=== PATIENT | female | born 1940 | race African-American/Black ===

== ENCOUNTER 2016-09-13 14:15 | Observation (INO) | payer MEDICARE, OTHER ==
[2016-09-13 15:05] LABS: Hematocrit 26 % (35-47); Hemoglobin 7.6 g/dl (12.0-16.0); Mean Corpuscular HGB Conc 30 g/dl (31-36); Mean Corpuscular Hemoglobin 23 pg (27-31); Mean Corpuscular Volume 77 fL (80-97); Mean Platelet Volume 11 um3 (7.4-10.4); Red Blood Count 3.31 10^6/ul (4.0-5.4); Red Cell Distribution Width 17 % (10.5-15); White Blood Count 6.6 10^3/ul (3.5-10.8)
[2016-09-13 15:08] LABS: Albumin 3.3 g/dL (3.2-5.2); Calcium 8.6 mg/dL (8.6-10.3); EGFR African American 78.7 (>60); EGFR Non-African American 61.2 (>60); Globulin 3.9 g/dL (2-4); Total Bilirubin 0.4 mg/dL (0.2-1.0); Total Protein 7.2 g/dL (6.4-8.9)
[2016-09-13 15:09] LABS: Troponin I 0.01 ng/mL (<0.04)
[2016-09-13] MEDS ORDERED: Albuterol/Ipratropium NEB.SOL* Albuterol 2.5 MG/Ipratropium 0.5 MG 3 ML INH ONE (15:10)
[2016-09-13 15:11] LABS: Add Diff/Slide Review? Manual Diff Added; Comments Flag Yes
--- NOTE | 2016-09-13 15:31 | RAD ---
INDICATION: Shortness of breath. COMPARISON: Most recent comparison chest x-ray is dated November 12, 2014 TECHNIQUE: PA and lateral views of the chest were obtained. FINDINGS: There is mild cardiomegaly. The heart and mediastinum are otherwise normal in contour. The lungs are grossly clear. There is no evidence of large pleural effusion. Degenerative changes of the thoracic spine include loss of intervertebral disc height and mild anterior marginal osteophyte formation. There is no radiographic evidence of free air beneath the diaphragm IMPRESSION: MILD CARDIOMEGALY COULD BE SEEN IN THE SETTING OF CONGESTIVE HEART FAILURE.
[2016-09-13 15:34] LABS: Eosinophils % 4 % (0-6); Neutrophil % 75 % (38-83)
[2016-09-13 15:35] LABS: Hypochromasia 2+; Macrocytosis 1+; Polychromasia 1+
[2016-09-13] MEDS ORDERED: NS 0.9% 1000 ML* 250 ML IV ONE (17:39)
[2016-09-13] MEDS ORDERED: Iodixanol* (CONTRAST) 320 MG/ML 100 ML SDV IV ONE (17:43)
--- NOTE | 2016-09-13 18:01 | ED ---
Jeannine Benitez Alok, scribed for Leona Trevizo MD on 09/13/16 at 1506 . Shortness of Breath - HPI Summary HPI Summary: 75 y/o female presents to the ED for SOB that started today at 0600. PMHx includes COPD and hx of CHF. Pt is a former tobacco smoker and quit in 2001. - History of Current Complaint Chief Complaint: EDShortnessOfBreath Time Seen by Provider: 09/13/16 14:19 Hx Obtained From: Patient Onset/Duration: Gradual Onset, Lasting Hours, Still Present Timing: Constant Current Severity: Moderate Aggrevating Factors: Nothing Alleviating Factors: Nothing - Allergy/Home Medications Allergies/Adverse Reactions: Allergies Allergy/AdvReac Type Severity Reaction Status Date / Time Captopril Allergy Severe Hives Verified 05/10/16 15:15 PMH/Surg Hx/FS Hx/Imm Hx Endocrine/Hematology History: Reports: Hx Diabetes, Hx Anemia Cardiovascular History: Reports: Hx Congestive Heart Failure - DX IN 2009, Hx Hypertension, Other Cardiovascular Problems/Disorders - DM II, ON NEW MED TO REGULATE WATER, JUST INCREASED (DOUBLED) DOSAGE Respiratory History: Reports: Hx Chronic Obstructive Pulmonary Disease (COPD), Hx Sleep Apnea GI History: Reports: Hx Gastrointestinal Bleed, Hx Hiatal Hernia, Other GI Disorders - HELICOBACTER INFECTION History: Denies: Hx Renal Disease Musculoskeletal History: Reports: Hx Arthritis, Hx Back Problems, Other Musculoskeletal History - spinal stenosis Sensory History: Reports: Hx Cataracts - surgery with implants bilat eyes 96, Hx Contacts or Glasses Opthamlomology History: Reports: Hx Cataracts - surgery with implants bilat eyes 96, Hx Contacts or Glasses Neurological History: Reports: Other Neuro Impairments/Disorders - vertigo Psychiatric History: Reports: Other Psychiatric Issues/Disorders - PT REPORTS "STRESS" AND SAYS HER MD GAVE HER A MED FOR IT, UNSURE WHAT - Surgical History Surgery Procedure, Year, and Place: partial hysterectomy-. naval hernia-72. boil like substance removed from both armpits, mid 70's. carpal tunnel both hands- 1 1/2 - 2yrs apart mid to late 80's. rotator cuff, bone spur removed- september. left foot surgery- screw placed, may. catarac surgery with implants to both eyes- Infectious Disease History: No Infectious Disease History: Denies: Traveled Outside the [place] in Last 30 Days - Family History Known Family History: Positive: Other - Yes - CHF (Mother) - Social History Alcohol Use: None Substance Use Type: Reports: None Hx Tobacco Use: Yes Smoking Status (MU): Former Smoker Have You Smoked in the Last Year: No Review of Systems Negative: Fever Positive: Shortness Of Breath All Other Systems Reviewed And Are Negative: Yes Physical Exam Triage Information Reviewed: Yes Vital Signs On Initial Exam: Initial Vitals Temp Pulse Resp BP Pulse Ox 99.2 F 65 20 148/66 100 09/13/16 14:25 09/13/16 14:25 09/13/16 14:25 09/13/16 14:25 09/13/16 14:25 Vital Signs Reviewed: Yes Appearance: Positive: Well-Appearing, No Pain Distress Skin: Positive: Warm, Skin Color Reflects Adequate Perfusion, Dry Eyes: Positive: EOMI, GENNY ENT: Positive: Pharynx normal, TMs normal Neck: Positive: Supple, Nontender Respiratory/Lung Sounds: Positive: Clear to Auscultation, Breath Sounds Present. Negative: Rales, Rhonchi, Wheezes Cardiovascular: Positive: RRR. Negative: Murmur, Rub, Other - Gallops Abdomen Description: Positive: Nontender, Soft Bowel Sounds: Positive: Present Musculoskeletal: Positive: Strength/ROM Intact. Negative: Edema Left, Edema Right Neurological: Positive: Sensory/Motor Intact, Alert, Oriented to Person Place, Time, CN Intact II-III Psychiatric: Positive: Affect/Mood Appropriate - [place] Coma Scale Coma Scale Total: 15 Diagnostics - Vital Signs Vital Signs Temp Pulse Resp BP Pulse Ox 09/13/16 14:36 98.7 F 64 15 138/60 100 09/13/16 14:31 99.2 F 64 19 138/64 99 09/13/16 14:29 99.2 F 68 21 148/66 99 09/13/16 14:26 66 18 100 09/13/16 14:25 99.2 F 65 20 148/66 100 - Laboratory Lab Results: Lab Results 09/13/16 09/13/16 09/13/16 Range/Units 14:45 14:45 14:45 WBC 6.6 (3.5-10.8) 10^3/ul RBC 3.31 L (4.0-5.4) 10^6/ul Hgb 7.6 L (12.0-16.0) g/dl Hct 26 L (35-47) % MCV 77 L (80-97) fL MCH 23 L (27-31) pg MCHC 30 L (31-36) g/dl RDW 17 H (10.5-15) % Plt Count 158 (150-450) 10^3/ul MPV 11 H (7.4-10.4) um3 Absolute Neuts (auto) 5.0 (1.5-7.7) 10^3/ul Absolute Lymphs (auto) 0.9 L (1.0-4.8) 10^3/ul Absolute Monos (auto) 0.4 (0-0.8) 10^3/ul Absolute Eos (auto) 0.3 (0-0.6) 10^3/ul Absolute Basos (auto) 0 (0-0.2) 10^3/ul Absolute Nucleated RBC 0.04 10^3/ul Neutrophils % 75 (38-83) % Lymphocytes % 14 L (25-47) % Monocytes % 7 (0-13) % Eosinophils % 4 (0-6) % Normal RBC Morphology Not Reportable Polychromasia 1+ Hypochromasia 2+ Macrocytosis 1+ INR (Anticoag Therapy) 1.06 (0.89-1.11) D-Dimer, Quantitative 595 H (Less Than 230) ng/mL Sodium 140 (133-145) mmol/L Potassium 4.0 (3.5-5.0) mmol/L Chloride 107 (101-111) mmol/L Carbon Dioxide 28 (22-32) mmol/L Anion Gap 5 (2-11) mmol/L BUN 9 (6-24) mg/dL Creatinine 0.90 (0.51-0.95) mg/dL Est GFR ( Amer) 78.7 (>60) Est GFR (Non-Af Amer) 61.2 (>60) BUN/Creatinine Ratio 10.0 (8-20) Glucose 145 H (70-100) mg/dL Lactic Acid (0.5-2.0) mmol/L Calcium 8.6 (8.6-10.3) mg/dL Total Bilirubin 0.40 (0.2-1.0) mg/dL AST 28 (13-39) U/L ALT 25 (7-52) U/L Alkaline Phosphatase 112 H (34-104) U/L Troponin I 0.01 (<0.04) ng/mL B-Natriuretic Peptide ( - 100) pg/mL Total Protein 7.2 (6.4-8.9) g/dL Albumin 3.3 (3.2-5.2) g/dL Globulin 3.9 (2-4) g/dL Albumin/Globulin Ratio 0.8 L (1-3) 09/13/16 09/13/16 09/13/16 Range/Units 14:45 14:45 16:45 WBC (3.5-10.8) 10^3/ul RBC (4.0-5.4) 10^6/ul Hgb (12.0-16.0) g/dl Hct (35-47) % MCV (80-97) fL MCH (27-31) pg MCHC (31-36) g/dl RDW (10.5-15) % Plt Count (150-450) 10^3/ul MPV (7.4-10.4) um3 Absolute Neuts (auto) (1.5-7.7) 10^3/ul Absolute Lymphs (auto) (1.0-4.8) 10^3/ul Absolute Monos (auto) (0-0.8) 10^3/ul Absolute Eos (auto) (0-0.6) 10^3/ul Absolute Basos (auto) (0-0.2) 10^3/ul Absolute Nucleated RBC 10^3/ul Neutrophils % (38-83) % Lymphocytes % (25-47) % Monocytes % (0-13) % Eosinophils % (0-6) % Normal RBC Morphology Polychromasia Hypochromasia Macrocytosis INR (Anticoag Therapy) (0.89-1.11) D-Dimer, Quantitative (Less Than 230) ng/mL Sodium (133-145) mmol/L Potassium (3.5-5.0) mmol/L Chloride (101-111) mmol/L Carbon Dioxide (22-32) mmol/L Anion Gap (2-11) mmol/L BUN (6-24) mg/dL Creatinine (0.51-0.95) mg/dL Est GFR ( Amer) (>60) Est GFR (Non-Af Amer) (>60) BUN/Creatinine Ratio (8-20) Glucose (70-100) mg/dL Lactic Acid 1.8 (0.5-2.0) mmol/L Calcium (8.6-10.3) mg/dL Total Bilirubin (0.2-1.0) mg/dL AST (13-39) U/L ALT (7-52) U/L Alkaline Phosphatase (34-104) U/L Troponin I 0.01 (<0.04) ng/mL B-Natriuretic Peptide 212 H ( - 100) pg/mL Total Protein (6.4-8.9) g/dL Albumin (3.2-5.2) g/dL Globulin (2-4) g/dL Albumin/Globulin Ratio (1-3) Result Diagrams: 09/13/16 14:45 09/13/16 14:45 Lab Statement: Any lab studies that have been ordered have been reviewed, and results considered in the medical decision making process. - Radiology CXR Xray Interpretation: Positive (See Comments) Radiology Interpretation Completed By: Radiologist - EKG 1443 Cardiac Rate: NL EKG Rhythm: Sinus Rhythm - 66 bpm Course/Dx - Course Course Of Treatment: 75 yo female with anemia at baseline here with episode of sob early this am at rest. ekg and two trops neg talked with cecil who suggested doing a ddimer which is positive and now pt has new cp. cta chest pending repeat ekg being done and pt to be admitted to medicine. Dr. Carty aware - Diagnoses Provider Diagnoses: Dyspnea - Physician Notifications Discussed Care of Patient With: Dr Carty (Hospitalist) - Will admit pt Discharge - Discharge Plan Condition: Stable Disposition: ADMITTED TO [facility] Referrals: Danny Pena MD [Primary Care Provider] - The documentation as recorded by the Jeannine puri Alok accurately reflects the service I personally performed and the decisions made by me, Leona Trevizo MD.
--- NOTE | 2016-09-13 19:23 | RAD ---
Indication: Shortness of breath. Contrast: Administered 91.0 ml of VISAPAQUE 320 mgi/ml CTA of the chest was performed after IV contrast administration. Coronal and sagittal reconstructed images were obtained. The pulmonary arterial tree is well opacified. There are no filling defects present to suggest pulmonary embolus. Inferior thyroid lobes are unremarkable. No mediastinal or hilar adenopathy is noted. Cardiomegaly without evidence of pericardial effusion is noted. The trachea and major bronchi appear patent. No alveolar consolidation is noted of the deep tendon changes which may represent atelectasis is noted in the lung bases. Lobulated liver consistent with cirrhosis is noted. Calcified granuloma is noted in the spleen. IMPRESSION: NO EVIDENCE OF PULMONARY EMBOLUS IS NOTED. BIBASILAR ATELECTASIS IS NOTED.
[2016-09-13] MEDS ORDERED: Dextrose 50% Syringe 50 ML* 25 GM/50 ML SYRINGE IV PUSH PRN (19:52)
[2016-09-13] MEDS ORDERED: Metolazone TAB* 5 MG PO SCH (20:00)
[2016-09-13] MEDS ORDERED: Albuterol/Ipratropium NEB.SOL* Albuterol 2.5 MG/Ipratropium 0.5 MG 3 ML INH PRN (20:01)
[2016-09-13] MEDS ORDERED: Ferrous Gluconate TAB* 324 MG TAB PO SCH (21:00)
[2016-09-13] MEDS ORDERED: Terazosin CAP* 5 MG PO SCH (21:00)
[2016-09-13] MEDS ORDERED: Ferrous Sulfate TAB* 325 MG PO SCH (21:59)
[2016-09-13] MEDS: Bumetanide TAB* 2 MG PO SCH (22:24)
[2016-09-13] MEDS: Losartan TAB* 25 MG PO SCH (22:25)
[2016-09-13] MEDS: Potassium Chlor TAB* 20 MEQ TAB.ER PO SCH (22:25)
[2016-09-13] MEDS: Heparin VIAL(*) 5000 UNITS/ML VIAL (FIVE THOUSAND) SUBCUT SCH (22:25)
[2016-09-13] MEDS: Carvedilol TAB* 25 MG PO SCH (22:25)
[2016-09-13] MEDS: Ferrous Sulfate TAB* 325 MG PO SCH (22:37)
--- NOTE | 2016-09-14 01:52 | HP ---
HOSPITAL MEDICINE HISTORY AND PHYSICAL: DATE OF ADMISSION: 09/13/16 PRIMARY CARE PHYSICIAN: Danny Pena MD ATTENDING PHYSICIAN: Jennifer Carty DO *(dictation provided by Sharmin Cornell NP) . CHIEF COMPLAINT: Shortness of breath with chest pain. HISTORY OF PRESENT ILLNESS: Ms. Hansen is a 75-year-old female with a past medical history of insulin-dependent diabetes, hypertension and CHF, who presents today to the hospital with concern for shortness of breath and chest pain. Ms. Hansen states that she was feeling fine until this morning. She was doing small activities around the house, cleaning, straightening up the bed and walking in the home when she developed shortness of breath. She states she has felt much more dyspneic with activity than usual, but she also states that she was short of breath at rest. She also had some chest discomfort along the left side of her chest. There is no nausea, sweating, radiation of the pain. It abated on its own. She states that she has had this pain intermittently for some time. She denies any recent illnesses. No fevers, chills, cough, nausea, or abdominal pain. She states she has been eating and drinking normally. In the emergency room, Ms. Hansen had a normal troponin and a normal EKG, but she did have an elevation in her D-dimer to 595. She went on for a CTA of the chest which showed no evidence of pulmonary embolism, but based on the concern for shortness of breath and chest pain, Hospital Medicine was called regarding admission. PAST MEDICAL HISTORY: 1. Chronic kidney disease, stage 3. 2. Chronic iron deficiency anemia. 3. Type 2 diabetes, insulin dependent. 4. Combined systolic and diastolic heart failure. 5. Obstructive sleep apnea, noncompliant with CPAP. 6. COPD. 7. Spinal stenosis. 8. History of umbilical hernia repair. 9. Hysterectomy. 10. Left foot ORIF. 11. Bilateral carpal tunnel release. 12. Right rotator cuff repair. 13. Cataract surgery bilaterally. 14. Axillary cyst excision bilaterally. MEDICATIONS: 1. Cyanocobalamin 500 mcg sublingually b.i.d. 2. Multivitamin 1 chewable p.o. daily. 3. Detrol LA 4 mg p.o. daily. 4. Glyburide 10 mg p.o. b.i.d. 5. Metformin 1000 mg in the a.m. and 1500 mg in the p.m. 6. Aspirin 81 mg p.o. daily. 7. Bumetanide 2 mg p.o. b.i.d. 8. Carvedilol 25 mg p.o. b.i.d. 9. Duloxetine 20 mg p.o. daily. 10. Ferrous gluconate 325 mg p.o. b.i.d. 11. Lantus insulin 60 units at p.m. and 80 units in the a.m. 12. Levothyroxine 25 mcg p.o. daily. 13. Losartan 50 mg p.o. b.i.d. 14. Metolazone 2.5 mg p.o. twice a week. 15. Potassium chloride 20 mEq p.o. b.i.d. 16. Simvastatin 20 mg p.o. daily. 17. Spironolactone 25 mg p.o. daily. 18. Terazosin 10 mg p.o. at bedtime. ALLERGIES: CAPTOPRIL. FAMILY HISTORY: The patient states that her mother, father, sister and brother all have diabetes. SOCIAL HISTORY: The patient is a former smoker, but she quit many years ago. No report of alcohol or drug use. She lives with her who is her healthcare proxy. REVIEW OF SYSTEMS: A 14-point review of systems was completed on Ms. Hansen and all those not mentioned above were negative. PHYSICAL EXAMINATION GENERAL: Ms. Hansen is lying in the bed. She is in no acute distress. She is calm and cooperative with my examination. VITAL SIGNS: Temperature 98, pulse rate 74, respiratory rate 20, O2 saturation 100% on room air, blood pressure 162/64. LUNGS: Clear to auscultation bilaterally with no accessory muscle use and good aeration. HEART: S1 and S2. No murmur, rub, or gallop and regular. ABDOMEN: Soft, nontender. Bowel sounds are present x4. EXTREMITIES: No cyanosis or edema. SKIN: Intact. NEUROLOGIC: She is alert and oriented x3. She moves all extremities equally. There is no facial asymmetry or focal weakness. Extraocular movements are intact. LABORATORY DATA/DIAGNOSTIC STUDIES: WBC 6.6, hemoglobin 7.6 which is consistent with baseline, though a little lower than usual for her, hematocrit is 26, platelet count 158, INR 1.06, d-dimer 595. Sodium 140, potassium 4.0, chloride 107, serum bicarbonate 28, BUN 9, creatinine 0.9, serial glucose 145, lactic acid 1.8. Troponin 0.01, BNP 212. Chest x-ray is read as follows: Mild cardiomegaly could be seen in the setting of congestive heart failure. Chest and thorax CTA: No evidence of pulmonary embolism is noted. Bibasilar atelectasis noted. EKG shows sinus rhythm and no evidence of ischemia with heart rate of about 60. ASSESSMENT: Ms. Hansen is a 75-year-old female with past medical history of chronic kidney disease, stage 3, insulin-dependent diabetes, and combined diastolic and systolic heart failure as well as chronic obstructive pulmonary disease and obstructive sleep apnea who presents today to the hospital with concern for shortness of breath and chest discomfort. Our plans are for observation in the hospital for the followin. Shortness of breath and chest discomfort: No evidence of pneumonia or infection. No evidence of fluid overload or congestive heart failure exacerbation. The patient also has no pulmonary embolism noted on CTA of chest. I am not exactly sure what drove her short-lived period of shortness of breath and chest pain, but I feel it is prudent to rule her out for acute coronary artery syndrome with multiple troponins and observation overnight. First troponin is negative. 2. Type 2 diabetes. Continue home Lantus with Lispro sliding scale with meals. 3. Hypothyroidism. Continue levothyroxine. 4. Anemia. The patient is near her baseline, though low. I see no evidence of bleeding. She does not have any dark-tarry stools. 5. Congestive heart failure. Continue home medications of spironolactone, metolazone and bumetanide. 6. Hypertension. Continue losartan and her diuretics. 7. DVT prophylaxis: Heparin subcu. 8. Code status is full code. DISPOSITION: To telemetry floor. TIME SPENT: Approximately 60 minutes was spent on the admission of this patient , more than half of the time was spent with the patient at the bedside, reviewing the events leading up this hospitalization, performing the physical examination and reviewing the plan of care. SHARMIN CORNELL NP CC: Danny Pena MD* [id number]/[facility] #: [id number] WENDY
[2016-09-14] MEDS ORDERED: Levothyroxine TAB* 25 MCG TAB PO SCH (06:00)
[2016-09-14] MEDS: Heparin VIAL(*) 5000 UNITS/ML VIAL (FIVE THOUSAND) SUBCUT SCH (06:23)
[2016-09-14] MEDS: Insulin LISPRO* 1 UNITS UNIT SUBCUT SCH ×2 (07:32→11:56)
[2016-09-14] MEDS: Potassium Chlor TAB* 20 MEQ TAB.ER PO SCH (08:06)
[2016-09-14] MEDS: Carvedilol TAB* 25 MG PO SCH (08:06)
[2016-09-14] MEDS: Losartan TAB* 25 MG PO SCH (08:06)
[2016-09-14] MEDS: Ferrous Sulfate TAB* 325 MG PO SCH (08:07)
[2016-09-14] MEDS: Bumetanide TAB* 2 MG PO SCH (08:07)
[2016-09-14] MEDS ORDERED: DULoxetine DR CAP* 20 MG CAP.DR PO SCH (09:00)
[2016-09-14] MEDS ORDERED: Atorvastatin* 10 MG TAB PO SCH (09:00)
[2016-09-14] MEDS ORDERED: Aspirin EC Low Dose* 81 MG TAB.EC PO SCH (09:00)
[2016-09-14] MEDS ORDERED: Insulin GLARGINE(*) 1 UNITS UNIT SUBCUT SCH ×2 (09:00→18:00)
[2016-09-14] MEDS ORDERED: Spironolactone TAB* 25 MG PO SCH (09:00)
--- NOTE | 2016-09-14 10:16 | PN ---
Subjective Date of Service: 09/14/16 Interval History: Patient seen and examined at bedside. She reports feeling at her baseline, denying fever/chills, palpitations, chest pain, increased SOB, abd pain, n/v. She states she normally has dyspnea at baseline, but the incident yesterday was worse in severity. She reports a history of cardiomyopathy and CHF and states she is compliant with diet and medications. She does not weigh herself regularly but denies abdominal fullness, LE edema or worsening dyspnea. She wonders if the incident yesterday may have been secondary to indigestion, though she states that she usually stays sitting up after eating. Blood work and EKGs reviewed with patient, and she is requesting to go home and will pursue further outpatient workup with PCP as warranted. Telemetry: SR in the 70s Family History: Unchanged from Admission Social History: Unchanged from Admission Past Medical History: Unchanged from Admission Objective Active Medications: Albuterol/Ipratropium (Duoneb (Albuterol 2.5 Mg/Ipratropium 0.5 Mg)) 1 neb INH Q4H PRN PRN Reason: SOB/WHEEZING Aspirin (Aspirin Ec Low Dose*) 81 mg PO DAILY [facility] Last Admin: 09/14/16 08:07 Dose: 81 mg Atorvastatin Calcium (Lipitor*) 10 mg PO DAILY [facility] Last Admin: 09/14/16 08:07 Dose: 10 mg Bumetanide (Bumex Tab*) 2 mg PO BID [facility] Last Admin: 09/14/16 08:07 Dose: 2 mg Carvedilol (Coreg Tab*) 25 mg PO BID WITH MEALS [facility] Last Admin: 09/14/16 08:06 Dose: 25 mg Dextrose (D50w Syringe 50 Ml*) 12.5 gm IV PUSH .FOR FS < 60 - SS PRN PRN Reason: FS < 60 Duloxetine HCl (Cymbalta Cap*) 20 mg PO DAILY [facility] Last Admin: 09/14/16 08:07 Dose: 20 mg Ferrous Sulfate (Ferrous Sulfate Tab*) 325 mg PO Q12HR [facility] Last Admin: 09/14/16 08:07 Dose: 325 mg Heparin Sodium (Porcine) (Heparin Vial(*)) 5,000 units SUBCUT Q8HR [facility] Last Admin: 09/14/16 06:23 Dose: 5,000 units Insulin Glargine (Lantus(*)) 80 units SUBCUT QAM [facility] Last Admin: 09/14/16 08:04 Dose: 80 units Insulin Glargine (Lantus(*)) 60 units SUBCUT QPM [facility] Insulin Human Lispro (Humalog*) 0 units SUBCUT AC [facility] PRN Reason: Protocol Last Admin: 09/14/16 07:32 Dose: Not Given Levothyroxine Sodium (Synthroid Tab*) 25 mcg PO DAILY@0600 [facility] Last Admin: 09/14/16 06:24 Dose: 25 mcg Losartan Potassium (Cozaar Tab*) 50 mg PO BID [facility] Last Admin: 09/14/16 08:06 Dose: 50 mg Metolazone (Zaroxolyn Tab*) 2.5 mg PO .TWICE A WEEK [facility] Potassium Chloride (Klor Con Er Tab*) 20 meq PO BID WITH MEALS [facility] Last Admin: 09/14/16 08:06 Dose: 20 meq Spironolactone (Aldactone Tab*) 25 mg PO DAILY [facility] Last Admin: 09/14/16 08:07 Dose: 25 mg Terazosin HCl (Hytrin Cap*) 10 mg PO BEDTIME [facility] Last Admin: 09/13/16 22:25 Dose: 10 mg Vital Signs 09/13/16 09/13/16 09/13/16 18:00 18:24 18:45 Temperature 98.2 F Pulse Rate 68 68 69 Respiratory 16 18 21 Rate Blood Pressure 130/41 130/41 (mmHg) O2 Sat by Pulse 97 96 Oximetry 09/13/16 09/13/16 09/13/16 19:00 19:43 20:02 Temperature 98 F Pulse Rate 72 74 74 Respiratory 19 20 19 Rate Blood Pressure 162/64 (mmHg) O2 Sat by Pulse 98 100 97 Oximetry 09/14/16 09/14/16 09/14/16 00:00 00:17 04:29 Temperature 98.2 F 97.9 F Pulse Rate 68 67 Respiratory 16 16 Rate Blood Pressure 128/54 122/49 (mmHg) O2 Sat by Pulse 99 99 99 Oximetry 09/14/16 07:37 Temperature 97.6 F Pulse Rate 65 Respiratory 20 Rate Blood Pressure 118/50 (mmHg) O2 Sat by Pulse 99 Oximetry Oxygen Devices in Use Now: None Appearance: Female patient, lying in bed, in NAD Eyes: PERRLA Ears/Nose/Mouth/Throat: Clear Oropharnyx, Mucous Membranes Moist Neck: NL Appearance and Movements; NL JVP Respiratory: Symmetrical Chest Expansion and Respiratory Effort, Clear to Auscultation Cardiovascular: NL Sounds; No Murmurs; No JVD, RRR Abdominal: NL Sounds; No Tenderness; No Distention Extremities: No Edema Skin: No Rash or Ulcers Neurological: Alert and Oriented x 3 Lines/Tubes/Other Access: Clean, Dry and Intact Peripheral IV Nutrition: Taking PO's Result Diagrams: 09/13/16 14:45 09/13/16 14:45 Additional Lab and Data: Lab Results 09/13/16 09/13/16 09/13/16 Range/Units 14:45 14:45 14:45 WBC 6.6 (3.5-10.8) 10^3/ul RBC 3.31 L (4.0-5.4) 10^6/ul Hgb 7.6 L (12.0-16.0) g/dl Hct 26 L (35-47) % MCV 77 L (80-97) fL MCH 23 L (27-31) pg MCHC 30 L (31-36) g/dl RDW 17 H (10.5-15) % Plt Count 158 (150-450) 10^3/ul MPV 11 H (7.4-10.4) um3 Absolute Neuts (auto) 5.0 (1.5-7.7) 10^3/ul Absolute Lymphs (auto) 0.9 L (1.0-4.8) 10^3/ul Absolute Monos (auto) 0.4 (0-0.8) 10^3/ul Absolute Eos (auto) 0.3 (0-0.6) 10^3/ul Absolute Basos (auto) 0 (0-0.2) 10^3/ul Absolute Nucleated RBC 0.04 10^3/ul Neutrophils % 75 (38-83) % Lymphocytes % 14 L (25-47) % Monocytes % 7 (0-13) % Eosinophils % 4 (0-6) % Normal RBC Morphology Not Reportable Polychromasia 1+ Hypochromasia 2+ Macrocytosis 1+ INR (Anticoag Therapy) 1.06 (0.89-1.11) D-Dimer, Quantitative 595 H (Less Than 230) ng/mL Sodium 140 (133-145) mmol/L Potassium 4.0 (3.5-5.0) mmol/L Chloride 107 (101-111) mmol/L Carbon Dioxide 28 (22-32) mmol/L Anion Gap 5 (2-11) mmol/L BUN 9 (6-24) mg/dL Creatinine 0.90 (0.51-0.95) mg/dL Est GFR ( Amer) 78.7 (>60) Est GFR (Non-Af Amer) 61.2 (>60) BUN/Creatinine Ratio 10.0 (8-20) Glucose 145 H (70-100) mg/dL Lactic Acid (0.5-2.0) mmol/L Calcium 8.6 (8.6-10.3) mg/dL Total Bilirubin 0.40 (0.2-1.0) mg/dL AST 28 (13-39) U/L ALT 25 (7-52) U/L Alkaline Phosphatase 112 H (34-104) U/L Troponin I 0.01 (<0.04) ng/mL B-Natriuretic Peptide ( - 100) pg/mL Total Protein 7.2 (6.4-8.9) g/dL Albumin 3.3 (3.2-5.2) g/dL Globulin 3.9 (2-4) g/dL Albumin/Globulin Ratio 0.8 L (1-3) 09/13/16 09/13/16 09/13/16 Range/Units 14:45 14:45 16:45 WBC (3.5-10.8) 10^3/ul RBC (4.0-5.4) 10^6/ul Hgb (12.0-16.0) g/dl Hct (35-47) % MCV (80-97) fL MCH (27-31) pg MCHC (31-36) g/dl RDW (10.5-15) % Plt Count (150-450) 10^3/ul MPV (7.4-10.4) um3 Absolute Neuts (auto) (1.5-7.7) 10^3/ul Absolute Lymphs (auto) (1.0-4.8) 10^3/ul Absolute Monos (auto) (0-0.8) 10^3/ul Absolute Eos (auto) (0-0.6) 10^3/ul Absolute Basos (auto) (0-0.2) 10^3/ul Absolute Nucleated RBC 10^3/ul Neutrophils % (38-83) % Lymphocytes % (25-47) % Monocytes % (0-13) % Eosinophils % (0-6) % Normal RBC Morphology Polychromasia Hypochromasia Macrocytosis INR (Anticoag Therapy) (0.89-1.11) D-Dimer, Quantitative (Less Than 230) ng/mL Sodium (133-145) mmol/L Potassium (3.5-5.0) mmol/L Chloride (101-111) mmol/L Carbon Dioxide (22-32) mmol/L Anion Gap (2-11) mmol/L BUN (6-24) mg/dL Creatinine (0.51-0.95) mg/dL Est GFR ( Amer) (>60) Est GFR (Non-Af Amer) (>60) BUN/Creatinine Ratio (8-20) Glucose (70-100) mg/dL Lactic Acid 1.8 (0.5-2.0) mmol/L Calcium (8.6-10.3) mg/dL Total Bilirubin (0.2-1.0) mg/dL AST (13-39) U/L ALT (7-52) U/L Alkaline Phosphatase (34-104) U/L Troponin I 0.01 (<0.04) ng/mL B-Natriuretic Peptide 212 H ( - 100) pg/mL Total Protein (6.4-8.9) g/dL Albumin (3.2-5.2) g/dL Globulin (2-4) g/dL Albumin/Globulin Ratio (1-3) Assess/Plan/Problems-Billing Assessment: Ms. Hansen is a 75 yo female with a PMH of stage 3 CKD, TAHIR, IDDM, systolic and diastolic CHF, ONUR, COPD, and spinal stenosis who presented to the ED on with concern for chest pain and SOB. - Patient Problems (1) Chest pain Code(s): R07.9 - CHEST PAIN, UNSPECIFIED Comment: Unclear etiology, perhaps secondary to indigestion. No repeat episodes last evening, overnight, or this morning. Troponins negative and no significant ST-T changes noted on EKG. CTA negative for PE. No s/s fluid overload or CHF exacerbation. Recommend outpatient follow-up with PCP. (2) Type 2 diabetes mellitus Comment: BG 120s-140s. Continue outpatient metformin and Lantus. (3) Chronic combined systolic and diastolic CHF (congestive heart failure) Code(s): I50.42 - CHRONIC COMBINED SYSTOLIC AND DIASTOLIC HRT FAIL Comment: Continue home medications of bumetanide, metolazone, spironolactone. No evidence of acute exacerbation LVEF 40-45% on echo 10/2014 (4) COPD (chronic obstructive pulmonary disease) Code(s): J44.9 - CHRONIC OBSTRUCTIVE PULMONARY DISEASE, UNSPECIFIED Comment: No acute exacerbation, lungs clear. (5) Iron deficiency anemia due to chronic blood loss Code(s): D50.0 - IRON DEFICIENCY ANEMIA SECONDARY TO BLOOD LOSS (CHRONIC) Comment: Reported history of chronic GI bleed from small bowel. Followed closely by PCP. Due for endoscopy with Dr. Marcial next week. Requires regular iron infusions HH stable. Will have patient recheck CBC in 3 days, as it is slightly lower than baseline. Continue outpatient follow-up. (6) Stage III chronic kidney disease Code(s): N18.3 - CHRONIC KIDNEY DISEASE, STAGE 3 (MODERATE) Comment: GFR near baseline (7) DVT prophylaxis Code(s): [id number] - Comment: SCDs Status and Disposition: OBV admit. D/c to home.
[2016-09-14 11:23] VITALS: BP 150/51
--- NOTE | 2016-09-16 09:38 | DS ---
DISCHARGE SUMMARY: DATE OF ADMISSION: 09/13/16 DATE OF DISCHARGE: 09/14/16 PROVIDER: Minoo Garza NP ATTENDING PHYSICIAN: Dr. Camden Wynn *(as dictated by Minoo Garza NP) PRIMARY CARE PHYSICIAN: Dr. Danny Pena PRIMARY DISCHARGE DIAGNOSES: Chest pain and increased shortness of breath. SECONDARY DISCHARGE DIAGNOSES: 1. Stage III chronic kidney disease. 2. Chronic iron-deficiency anemia. 3. Type 2 diabetes, insulin dependent. 4. Combined systolic and diastolic heart failure. 5. Obstructive sleep apnea, noncompliant with CPAP. 6. Chronic obstructive pulmonary disease. 7. Spinal stenosis. 8. History of umbilical hernia repair. 9. Hysterectomy. 10. Left foot open reduction internal fixation. 11. Bilateral carpal tunnel release. 12. Right rotator cuff repair. 13. Cataract surgery bilaterally. 14. Axillary cyst excision bilaterally. MEDICATIONS AT DISCHARGE: 1. Lantus insulin 80 units subcu q.a.m., and 60 units subcu q.p.m. 2. Metformin 1000 mg q.a.m., and 1500 mg q.p.m. 3. Carvedilol 25 mg b.i.d. 4. Aspirin 81 mg daily. 5. Bumex 2 mg b.i.d. 6. Cymbalta 20 mg daily. 7. Vitamin B12 500 mcg b.i.d. 8. Glyburide 10 mg b.i.d. 9. Ferrous gluconate 325 mg b.i.d. 10. Synthroid 25 mcg daily. 11. Zaroxolyn 2.5 mg twice a week. 12. Losartan 50 mg b.i.d. 13. Multivitamin one tablet daily. 14. Simvastatin 20 mg daily. 15. Potassium chloride 20 mEq b.i.d. 16. Hytrin 10 mg at bedtime. 17. Spironolactone 25 mg daily. 18. Detrol 4 mg daily. HOSPITAL TESTING DURING THIS ADMISSION: 1. Chest x-ray from 09/13/16. Impression: Mild cardiomegaly could be seen in the setting of congestive heart failure. 2. CT of the chest and thorax from 09/13/16. Impression: No evidence of pulmonary embolus is noted. Bibasilar atelectasis noted. HOSPITAL COURSE OF STAY: For full details, please refer to the history and physical provided by Sharmin Cornell NP on 09/13/16. In summary, Ms. Hansen is a 75 - year-old female with a past medical history as previously stated who presented to the hospital concerned for shortness of breath and chest pain. She reports chest pain and shortness of breath with exertion at baseline, but was concerned because she felt more dyspneic with activity than usual and also experienced some chest discomfort along the left-side of her chest that she described as "burping." There was no nausea, sweating, or radiation of pain; it stopped on its own. She states that this pain has been occurring intermittently for some time. In the emergency room, the patient had a normal troponin, normal EKG, but her D - dimer was noted to 595. CTA of the chest showed no evidence of pulmonary embolism; however, with her history and , Hospital Medicine was consulted for admission. The patient was admitted under observation. Her troponins were trended and the EKG was repeated. Her troponins were negative at 0.01 x3 draws. The EKG showed no significant ST or T-wave changes. She required no additional supplemental O2 and was at her baseline oxygen requirements and was on room air. There were no signs or symptoms of fluid overload with CHF exacerbation. The patient does report that she takes her medications as prescribed, and she states that she is compliant with her diet. I could not elicit any reports of foods high in sodium or out of the ordinary that may have caused her symptoms. She denies weighing herself on a regular basis, but she denies any increasing abdominal fullness, lower extremity edema, or worsening dyspnea or orthopnea. She says that the incident prior to admission may have been secondary to indigestion, but she also reports that she tries to stay sitting up after eating. We discussed the options of staying and undergoing a stress test risks by our criteria of EKG and troponins is low. She states that she will follow up with her PCP and pursue further outpatient workup as needed. She also has followup with Dr. Horton later on this year. Of note, the patient does have a history of iron-deficiency anemia secondary to chronic blood loss. I do note that the patient's H and H is slightly lower than her baseline at 7.6 and 26; however, she is not tachycardic and her blood pressure is stable, and she has had no further complaints just being admitted. I did revisit the patient and advised her to have a followup CBC in two days with results sent to her PCP in order to make sure that this is not falling further as this may be contributing to her symptoms. She also states that she is due for endoscopy with Dr. Marcial within the week. She should continue her outpatient followup with Dr. Pena. Her kidney function is within baseline, and no other concerns were noted or expressed. CONCERNS AT DISCHARGE: Ms. Hansen will be discharged home on 09/14/16 with a plan to follow up with Dr. Pena in 4 to 7 days. Our load planner will help coordinate this appointment with the patient. DIET: Low-sodium, heart-healthy, and consistent-carbohydrate diet. ACTIVITY: As tolerated. CONDITION: Stable. DISPOSITION: To home. TIME SPENT: Time spent on this discharge was approximately 45 minutes. Again, this is only a brief summary of the patient's hospital course of stay. For full details, please refer to the full medical record. If you have any further questions or need further assistance, please feel free to contact me at [phone]. MINOO GARZA NP CC: Dr. Danny Pena* [id number]/[facility] #: [id number] MTDD
== END 2016-09-14 12:45 | disposition home or self-care (01) ==
LOC: ED 14:15 → MEDTELE 17:52
PROVIDERS: ADMIT Hospitalist; ATTEND Hospitalist
DX: R07.9 Chest pain, unspecified (principal); R06.02 Shortness of breath; I13.0 Hypertensive heart and chronic kidney disease with heart failure and stage 1 through stage 4 chronic kidney disease, or unspecified chronic kidney disease; N18.3 Chronic kidney disease, stage 3 (moderate); I50.40 Unspecified combined systolic (congestive) and diastolic (congestive) heart failure; E11.9 Type 2 diabetes mellitus without complications; D50.9 Iron deficiency anemia, unspecified; Z79.4 Long term (current) use of insulin; G47.33 Obstructive sleep apnea (adult) (pediatric); E03.9 Hypothyroidism, unspecified; Z79.82 Long term (current) use of aspirin; Z79.899 Other long term (current) drug therapy; Z88.8 Allergy status to other drugs, medicaments and biological substances; Z87.891 Personal history of nicotine dependence; R94.31 Abnormal electrocardiogram [ECG] [EKG]
CPT/HCPCS: 36415; 71020; 71275; 80053; 83605; 83880; 84484; 85025; 85379; 85610; 87040; 93005; 94760; 96360; 96361; 96372; 99284; A9270-GY; G0378; J1644; Q9967

== ENCOUNTER 2016-10-11 13:07 | Emergency (ER) | payer MEDICARE, OTHER ==
[2016-10-11] MEDS ORDERED: Acetaminophen TAB* 325 MG PO ONE (14:16)
[2016-10-11] MEDS ORDERED: Ibuprofen TAB* 600 MG PO ONE (14:16)
[2016-10-11] MEDS ORDERED: Methocarbamol TAB* 500 MG PO ONE (16:39)
--- NOTE | 2016-10-11 17:47 | ED ---
Devendra Benitez Erika, scribed for Ivanna Denton MD on 10/11/16 at 1510 . Back Pain - HPI Summary HPI Summary: Patient is a 75-year-old female presenting to the ED with a CC of lower back pain starting 10/09/2016. She denies trauma. Patient describes pain as a throbbing, and reports that pain radiates from the lower back to the left hip. Patient took 500 mg Tylenol yesterday, but did not today. Pain is improved while lying down. Patient reports she usually walks with a cane, and she has been able to walk with pain since pain began. She denies weakness in her legs, numbness, and urinary symptoms. Pt does state she has not had a BM since 10/08 as well. Pt reports a Hx spinal stenosis and arthritis in her back. She reports she is followed by her PCP Dr. Pena, and has had an MRI in the past. She reports she is followed by Dr. Marcial for GI, and recently found AVMs and benign polyps after upper and lower endoscopy. She reports she has had blood in her stool for years. Patient denies Hx kidney disease. She reports Hx cardiomyopathy, HTN, DM, vertigo, and COPD. Pt does not use home O2. She lives with her , and is a former smoker. - History of Current Complaint Chief Complaint: EDBackInjuryPain Stated Complaint: LT SIDE BACK/HIP PAIN Time Seen by Provider: 10/11/16 13:22 Hx Obtained From: Patient, Family/Die Finisher - Onset/Duration: Gradual Onset, Lasting Days, Still Present Onset/Duration: Atraumatic Timing: Constant Back Pain Location: Is Discrete @ - Lower back, L hip Severity Currently: Moderate Pain Intensity: 10 Pain Scale Used: 0-10 Numeric Character: Throbbing Aggravating Symptom(s): Movement Alleviating Symptom(s): Rest, Position - Lying down Associated Signs And Symptoms: Negative: Weakness, Numbness, Bladder Incontinence, Bowel Incontinence - Allergies/Home Medications Allergies/Adverse Reactions: Allergies Allergy/AdvReac Type Severity Reaction Status Date / Time Captopril Allergy Severe Hives Verified 05/10/16 15:15 Home Medications: Home Medications Insulin GLARGINE(*) [Lantus(*)] 60 units SUBCUT BID 10/11/16 [History Confirmed 10/11/16] Nystatin TOP POWDER* 1 applic TOPICAL BID 10/11/16 [History Confirmed 10/11/16] Triamcinolone 0.1% CREAM (NF) [Kenalog 0.1% Cream (NF)] 1 applic TOPICAL DAILY 10/11/16 [History Confirmed 10/11/16] PMH/Surg Hx/FS Hx/Imm Hx Endocrine/Hematology History: Reports: Hx Diabetes, Hx Anemia - chronic iron infusions Cardiovascular History: Reports: Hx Congestive Heart Failure - DX IN 2009, Hx Hypertension, Other Cardiovascular Problems/Disorders - cardiomyopathy Respiratory History: Reports: Hx Chronic Obstructive Pulmonary Disease (COPD), Hx Sleep Apnea GI History: Reports: Hx Gastrointestinal Bleed, Hx Hiatal Hernia - s/p repair, Other GI Disorders - HELICOBACTER INFECTION History: Denies: Hx Renal Disease Musculoskeletal History: Reports: Hx Arthritis, Hx Back Problems, Other Musculoskeletal History - spinal stenosis Sensory History: Reports: Hx Cataracts - surgery with implants bilat eyes 96, Hx Contacts or Glasses Opthamlomology History: Reports: Hx Cataracts - surgery with implants bilat eyes 96, Hx Contacts or Glasses Neurological History: Reports: Other Neuro Impairments/Disorders - vertigo Psychiatric History: Reports: Other Psychiatric Issues/Disorders - PT REPORTS "STRESS" AND SAYS HER MD GAVE HER A MED FOR IT, UNSURE WHAT - Surgical History Surgery Procedure, Year, and Place: partial hysterectomy-69. naval hernia-71. boil like substance removed from both armpits, mid 70's. carpal tunnel both hands- 1 1/2 - 2yrs apart mid to late 80's. R rotator cuff, bone spur removed- september. left foot surgery- screw placed, may. catarac surgery with implants to both eyes-96 - Immunization History Date of Tetanus Vaccine: >10 years ago Date of Influenza Vaccine: 02/2016 Infectious Disease History: No Infectious Disease History: Denies: Traveled Outside the [place] in Last 30 Days - Family History Known Family History: Positive: Other - Yes - CHF (Mother) - Social History Occupation: Retired Lives: With Family Alcohol Use: None Substance Use Type: Reports: None Hx Tobacco Use: Yes Smoking Status (MU): Former Smoker Have You Smoked in the Last Year: No Review of Systems Gastrointestinal: Other - constipated. blood in stool at baseline Negative: incontinence Musculoskeletal: Other - Back and L hip pain Negative: Weakness, Numbness All Other Systems Reviewed And Are Negative: Yes Physical Exam Triage Information Reviewed: Yes Vital Signs On Initial Exam: Initial Vitals Temp Pulse Resp Pulse Ox 97.3 F 71 20 100 10/11/16 13:09 10/11/16 13:09 10/11/16 13:09 10/11/16 13:09 Vital Signs Reviewed: Yes Appearance: Positive: Well-Appearing, No Pain Distress, Obese Skin: Positive: Warm, Skin Color Reflects Adequate Perfusion, Soft Head/Face: Positive: Normal Head/Face Inspection Eyes: Positive: EOMI, GENNY, Conjunctiva Clear ENT: Positive: Pharynx normal, TMs normal Neck: Positive: Supple, Nontender Respiratory/Lung Sounds: Positive: Clear to Auscultation, Breath Sounds Present Cardiovascular: Positive: RRR, Pulses are Symmetrical in both Upper and Lower Extremities. Negative: Murmur, Rub Abdomen Description: Positive: Nontender, No Organomegaly, Soft. Negative: Distended, Guarding, Peritoneal Signs Bowel Sounds: Positive: Present Musculoskeletal: Positive: Other - Tenderness left paraspinal around T12-L3. No deformity noted. Negative straight leg raise bilaterally Neurological: Positive: Sensory/Motor Intact, Alert, Oriented to Person Place, Time, Normal Gait. Negative: Cerebellar Dysfunction Psychiatric: Positive: Affect/Mood Appropriate Diagnostics - Vital Signs Vital Signs Temp Pulse Resp BP Pulse Ox 10/11/16 13:51 97.3 F 71 20 166/66 100 10/11/16 13:09 97.3 F 71 20 100 - Laboratory Lab Statement: Any lab studies that have been ordered have been reviewed, and results considered in the medical decision making process. Re-Evaluation - Re-Evaluation First Eval Re-Evaluation Time: 15:33 Change: Unchanged Comment: Patient is not feeling improved. Will continue to observe Second Eval Re-Evaluation Time: 16:39 Change: Unchanged Comment: Patient agrees to try muscle relaxer Back Pain Course/Dx - Diagnoses Provider Diagnoses: Sciatica Discharge - Discharge Plan Condition: Stable Disposition: HOME Prescriptions: Methocarbamol TAB* [Robaxin TAB*] 1,000 mg PO Q6H PRN #20 tab PRN Reason: Pain Patient Education Materials: Sciatica (ED) Referrals: Danny Pena MD [Primary Care Provider] - Jose Lagunas MD [Medical Doctor] - Additional Instructions: Please follow up with neurosurgery. The documentation as recorded by the Devendra puri Erika accurately reflects the service I personally performed and the decisions made by , Ivanna Denton MD.
[2016-10-11 18:10] VITALS: BP 172/73
== END 2016-10-11 18:08 | disposition home or self-care (01) ==
LOC: ED 13:07
DX: M54.32 Sciatica, left side (principal); Z87.891 Personal history of nicotine dependence; E11.9 Type 2 diabetes mellitus without complications; Z79.4 Long term (current) use of insulin; J44.9 Chronic obstructive pulmonary disease, unspecified; I50.9 Heart failure, unspecified; I10 Essential (primary) hypertension; I42.9 Cardiomyopathy, unspecified
CPT/HCPCS: 99282; A9270-GY

== ENCOUNTER 2016-11-21 12:49 | Inpatient (IN) | payer MEDICARE, OTHER ==
--- NOTE | 2016-11-21 13:25 | RAD ---
HISTORY: Left-sided weakness COMPARISONS: None TECHNIQUE: Multiple contiguous axial CT scans were obtained of the head without intravenous contrast. FINDINGS: HEMORRHAGE/INFARCT: There is no hemorrhage or acute infarct. MASSES/SHIFT: There is no mass or shift. EXTRA-AXIAL SPACES: There are no extra-axial fluid collections. SULCI AND VENTRICLES: The sulci and ventricles are normal in size and position for the patient's stated age. CEREBRUM: There is hypoattenuation of the periventricular and subcortical white matter. BRAINSTEM: There are no focal parenchymal abnormalities. CEREBELLUM: There are no focal parenchymal abnormalities. VESSELS: The vessels are grossly normal. PARANASAL SINUSES: The paranasal sinuses are clear. ORBITS: The orbits are unremarkable. BONES AND SOFT TISSUE: No bone or soft tissue abnormalities are noted. OTHER: None IMPRESSION: NO ACUTE INTRACRANIAL PATHOLOGY.
--- NOTE | 2016-11-21 13:27 | RAD ---
HISTORY: Weakness COMPARISONS: September 13, 2016 VIEWS:1: Single frontal portable view of the chest at 1:20 PM FINDINGS: LINES AND TUBES: None. CARDIOMEDIASTINAL SILHOUETTE: The cardiomediastinal silhouette is normal for portable technique. PLEURA: The costophrenic angles are sharp. No pleural abnormalities are noted. LUNG PARENCHYMA: The lungs are clear. ABDOMEN: The upper abdomen is clear. There is no subphrenic gas. BONES AND SOFT TISSUES: Degenerative changes are noted of the left shoulder. There is post surgical change to the right shoulder. There is a scoliotic curvature of the spine IMPRESSION: NO ACTIVE CARDIOPULMONARY DISEASE.
[2016-11-21 13:30] LABS: Hematocrit 29 % (35-47); Hemoglobin 8.7 g/dl (12.0-16.0); Mean Corpuscular HGB Conc 30 g/dl (31-36); Mean Corpuscular Hemoglobin 22 pg (27-31); Mean Corpuscular Volume 72 fL (80-97); Red Blood Count 3.99 10^6/ul (4.0-5.4); Red Cell Distribution Width 20 % (10.5-15); White Blood Count 6.2 10^3/ul (3.5-10.8)
[2016-11-21 13:37] LABS: Comments Flag Yes
[2016-11-21 13:38] LABS: Add Diff/Slide Review? Slide Review Added
[2016-11-21 13:40] LABS: Albumin 3.3 g/dL (3.2-5.2); BUN/Creatinine Ratio 18.4 (8-20); EGFR African American 59.8 (>60); EGFR Non-African American 46.5 (>60); Globulin 3.9 g/dL (2-4); Potassium 3.9 mmol/L (3.5-5.0); Total Bilirubin 0.5 mg/dL (0.2-1.0); Total Protein 7.2 g/dL (6.4-8.9)
[2016-11-21 13:42] LABS: Troponin I 0.03 ng/mL (<0.04)
[2016-11-21 14:03] LABS: Hypochromasia 1+; Microcytosis 1+
[2016-11-21 14:04] LABS: Polychromasia 1+
[2016-11-21 14:06] LABS: Platelet Morphology Large; Schistocytes 1+
[2016-11-21 14:07] LABS: Mean Platelet Volume 10 um3 (7.4-10.4)
[2016-11-21] MEDS ORDERED: Insulin REGULAR(*) 1 UNITS UNIT IV PUSH ONE (15:09)
[2016-11-21] MEDS ORDERED: Acetaminophen TAB* 325 MG PO PRN (15:29)
[2016-11-21] MEDS ORDERED: Ondansetron INJ* 2 MG/ML VIAL IV PRN (15:29)
[2016-11-21] MEDS ORDERED: Dextrose 50% Syringe 50 ML* 25 GM/50 ML SYRINGE IV PUSH PRN (15:29)
[2016-11-21] MEDS ORDERED: Albuterol 2.5 MG/3 ML NEB.SOL* (0.083%) INH PRN (15:39)
[2016-11-21] MEDS ORDERED: Iodixanol* (CONTRAST) 320 MG/ML 100 ML SDV IV ONE (15:40)
--- NOTE | 2016-11-21 16:16 | RAD ---
HISTORY: Left arm weakness, confusion COMPARISONS: CT dated November 21, 2016 at 1:14 PM TECHNIQUE: Multiple contiguous axial CT scans were obtained of the head and neck After the administration of nonionic intravenous contrast timed to the systemic arterial phase of contrast enhancement. Coronal and sagittal multiplanar reformations are submitted for review. Multiple 3-D maximum intensity projection reconstructions are also submitted for review. FINDINGS: This study is limited by suboptimal contrast opacification and by patient motion artifact CTA NECK: AORTIC ARCH: There is a normal three-vessel branching pattern of the aortic arch. There is no ostial or proximal stenosis of the cephalic great vessels. RIGHT VERTEBRAL ARTERY: The right vertebral artery is patent along its course, without stenosis. LEFT VERTEBRAL ARTERY: The left vertebral artery is patent along its course, without stenosis. DOMINANCE: The vertebral arteries are codominant. RIGHT COMMON CAROTID ARTERY: The right common carotid artery is patent. The right carotid bifurcation occurs at C3-C4 RIGHT INTERNAL CAROTID ARTERY: There is atheromatous disease of the right carotid bifurcation, without right internal carotid artery stenosis by NASCET criteria. RIGHT EXTERNAL CAROTID ARTERY: The right external carotid artery is unremarkable. LEFT COMMON CAROTID ARTERY: The left common carotid artery is patent. The left carotid bifurcation occurs at C3-C4 LEFT INTERNAL CAROTID ARTERY: There is atheromatous disease of the left carotid bifurcation, without left internal carotid artery stenosis by NASCET criteria. LEFT EXTERNAL CAROTID ARTERY: The left external carotid artery is unremarkable. VENOUS CIRCULATION: The venous system is unremarkable. SALIVARY GLANDS: The parotid glands, submandibular glands, sublingual glands are normal. NASAL CAVITY/NASOPHARYNX: The nasal cavity and nasopharynx are normal. ORAL CAVITY/OROPHARYNX: The oral cavity is obscured by streak artifact from dental amalgam. The visualized oral cavity and oropharynx are unremarkable. LARYNGEAL APPARATUS/HYPOPHARYNX: The laryngeal apparatus and hypopharynx are normal. UPPER AIRWAY/UPPER ESOPHAGUS: The visualized upper airway and esophagus are normal. LUNG APICES: The lung apices are clear. THYROID GLAND: The thyroid gland is heterogeneous with multiple small nodules LYMPH NODES: There is no lymphadenopathy by size criteria. BONES AND SOFT TISSUES: Degenerative changes are noted of the spine CTA HEAD: INTRACRANIAL CIRCULATION: There is no aneurysm, vascular malformation, occlusion, or stenosis of the visualized intracranial circulation. The anterior communicating artery complex is clear. Bilateral posterior communicating arteries are identified. VENOUS CIRCULATION: The venous system is unremarkable. PERFUSION: There is no obvious parenchymal perfusion deficit. HEMORRHAGE/INFARCT: There is no hemorrhage or acute infarct. MASSES/SHIFT: There is no mass or shift. EXTRA-AXIAL SPACES: There are no extra-axial fluid collections. SULCI AND VENTRICLES: The sulci and ventricles are normal in size and position for the patient's stated age. CEREBRUM: There is hypoattenuation of the periventricular and subcortical white matter. BRAINSTEM: There are no focal parenchymal abnormalities. CEREBELLUM: There are no focal parenchymal abnormalities. PARANASAL SINUSES: The paranasal sinuses are clear. ORBITS: The orbits are unremarkable. BONES AND SOFT TISSUE: No bone or soft tissue abnormalities are noted. OTHER: There is no abnormal enhancement. IMPRESSION: 1. NO INTERNAL CAROTID ARTERY STENOSIS BY NASCET CRITERIA. 2. NO ANEURYSM, VASCULAR MALFORMATION, OCCLUSION, OR STENOSIS OF THE VISUALIZED INTRACRANIAL CIRCULATION.. 3. HETEROGENEOUS THYROID CPT II Codes: 6045F
[2016-11-21] MEDS: Insulin LISPRO* 1 UNITS UNIT SUBCUT SCH ×2 (16:25→21:51)
[2016-11-21 16:53] LABS: Erythrocyte Sed Rate 49 mm/Hr (0-40)
[2016-11-21 17:11] LABS: C Reactive Protein 8.43 mg/L (< 5.00)
[2016-11-21] MEDS: Aspirin Low Dose CHEW TAB* 81 MG PO SCH (17:31)
[2016-11-21 18:31] LABS: Urine Bacteria Absent (Absent); Urine Bilirubin Negative (Negative); Urine Glucose 3+(>=500 mg/dL) (Negative); Urine Nitrite Negative (Negative)
[2016-11-21] MEDS: Potassium Chlor TAB* 20 MEQ TAB.ER PO SCH ×2 (19:03→20:23)
[2016-11-21] MEDS: Carvedilol TAB* 25 MG PO SCH (20:22)
[2016-11-21] MEDS: Bumetanide TAB* 2 MG PO SCH (20:22)
[2016-11-21] MEDS: Ferrous Gluconate TAB* 324 MG TAB PO SCH (20:22)
[2016-11-21] MEDS: Losartan TAB* 25 MG PO SCH (20:22)
[2016-11-21] MEDS: Terazosin CAP* 5 MG PO SCH (20:23)
[2016-11-21] MEDS ORDERED: Heparin VIAL(*) 5000 UNITS/ML VIAL (FIVE THOUSAND) SUBCUT SCH (22:00)
--- NOTE | 2016-11-21 23:13 | HP ---
HISTORY AND PHYSICAL: DATE OF ADMISSION: 11/21/16 ATTENDING PHYSICIAN WHILE IN THE HOSPITAL: Jennifer Carty DO* (report being dictated by Vince Alcala NP) PRIMARY CARE PROVIDER: Danny Pena MD CONSULTING NEUROLOGIST: Jose Rosen MD CHIEF COMPLAINT: 1. Visual field defect. 2. Troubled vision, left eye. HISTORY OF PRESENT ILLNESS: Ms. Hansen is a 76-year-old female patient. She has a history of CKD, stage 3; anemia; diabetes; CHF; ONUR; COPD; history of spinal stenosis; and a history of cardiomyopathy who comes in to the ER today stating that yesterday while at [employer], she was driving in a motorized power chair and her was watching the whole thing and there was a sign on to her left side that she could not see, an advertisement sign, she almost hit it. She also was walking to the car and she got in on the wrong side of the vehicle. She seemed to be confused. The patient does say that she was having trouble seeing things out of her left eye. She was having a blurry double vision. Her right eye seemed to be intact. She also noted that she was having a headache particularly in the front of her head and in her neck. There has been no recent fevers, chills, nausea, or vomiting. She denied having any weakness to one side. No slurring of the words. No trouble with word finding. She was concerned and came in to the ER today to have this evaluated as she woke up this morning, had similar visual deficits. She was having quite a hard time with vision in the left eye. She was concerned and came in. She says she woke up this morning. She had trouble with the left eye, again seeing and she was having some double vision. She was concerned and came in to the ER. It was noted that her sugar was 600. It was noted that she was having these visual changes and the hospitalist service was asked to evaluate for admission. PAST MEDICAL HISTORY: Significant for: 1. CKD, stage 3. 2. Anemia. 3. Diabetes. 4. CHF. 5. ONUR. 6. COPD. 7. Spinal stenosis. 8. Cardiomyopathy. 9. Hyperlipidemia. 10. Hypertension. PAST SURGICAL HISTORY: 1. She has had a hernia repair. 2. ORIF of the left foot. 3. She has had a hysterectomy. 4. She has had a carpal tunnel release. 5. She has had a rotator cuff repair. 6. She has had cataract surgeries as well. HOME MEDICATIONS: According to her recall include: 1. Lantus 60 units at bedtime and 80 units in the morning. 2. Zaroxolyn 2.5 mg p.o. twice a day. 3. Cozaar 50 mg p.o. b.i.d. 4. Synthroid 25 mcg daily. 5. Lantus 80 units subcu q.a.m. 6. Ferrous gluconate 325 mg p.o. b.i.d. 7. Cymbalta 20 mg daily. 8. Coreg 25 mg p.o. b.i.d. 9. Triamcinolone cream 1 application topically daily. 10. Detrol 4 mg daily. 11. Hytrin 10 mg p.o. at bedtime. 12. Aldactone 25 mg daily. 13. Zocor 20 mg daily. 14. Potassium 20 mEq p.o. b.i.d. 15. Nystatin powder 1 application topically b.i.d. 16. Metformin 1500 mg at bedtime and 1000 mg in the morning. 17. Glyburide 10 mg p.o. b.i.d. 18. Bumex 2 mg p.o. b.i.d. ALLERGIES TO MEDICATIONS: Include CAPTOPRIL. FAMILY HISTORY: Both her parents were diabetic. SOCIAL HISTORY: She is a former smoker. She does not drink alcohol. Surrogate decision maker is her . REVIEW OF SYSTEMS: There is no documented fever. She denied having any significant weight change. There was no double vision. There is no ear discharge. There was no rhinorrhea. No sore throat. No thyroid enlargement. Denied having any chest pain. There was no orthopnea. There is no nocturnal dyspnea. There is no abdominal pain. There was no nausea. No vomiting. No dysuria. No frequency. No seizure. No loss of consciousness. No pruritus. No skin ulcerations. Review of 14 systems completed, all others negative. PHYSICAL EXAMINATION GENERAL: At this time, Ms. Hansen is a 76-year-old female patient. She is chronically ill appearing. She is sitting in the ER stretcher. She does not appear to be in any acute distress. VITAL SIGNS: Blood pressure 156/90 with a pulse of 98, respirations 18, O2 sat 98%, and temperature 98.1. HEENT: Head is atraumatic and normocephalic. Eyes: EOMs are intact. Her sclerae were anicteric and not pale. Throat: Oral mucosa appears to be moist. No oropharyngeal erythema. NECK: Supple. LUNGS: Clear to auscultation bilaterally. No wheezes, rales, or rhonchi. HEART: Sounds S1, S2. Regular rate and rhythm. No murmurs, rubs, or gallops. ABDOMEN: Soft, it was flat, and nontender. Bowel sounds present. EXTREMITIES: Pulses were 2+ throughout. She is able to move all 4 extremities with 5/5 strength. NEUROLOGIC: She is awake and alert. She is oriented x3. Her speech is clear. Tongue is midline. [employer] Facilities Manager were equal. [id number] intact bilaterally. Heel- to- hazel intact bilaterally. On visual metz, she definitely is having trouble with visual field cuts on the left eye, particularly in the left upper quadrant of her left visual metz of her left eye. She has difficulty telling me how many fingers I am holding up. When I have my fingers right in front of her left eye, she has trouble, but when looking at me, she has trouble with the peripheral vision particularly in the upper quadrant on the left eye visual field. I have noted compared to the right and with both eyes, when she looks at me, she said she is having trouble seeing my left side. Says it looks blurry when she is looking at me in conversation. No other gross focal deficits were noted. SKIN: Grossly intact. DIAGNOSTIC STUDIES/LAB DATA: Labs today revealed a WBC of 6.2, RBC of 3.99, hemoglobin of 8.7, hematocrit of 29, and a platelet count of 145. The sodium was 128, the potassium was 3.9, the chloride was 92, the bicarb was 26, the BUN was 21, the creatinine was 1.14, glucose was 610 and repeat now is 490, her lactic was 1.2, and calcium 9.0. Total bili 0.5, AST 21, ALT 20, and alk phos of 264. Troponin 0.03. Albumin of 3.3. She had a chest x-ray obtained today, which revealed no active cardiopulmonary disease. There was a brain CT obtained today, which revealed no acute intracranial pathology. EKG is pending. Old medical records were reviewed. ASSESSMENT AND PLAN: Ms. Hansen is a 76-year-old female patient coming in to the ER today with complaints of having visual field deficits, particularly on the left eye. On evaluation today, there was concern that this may represent possible cerebrovascular accident or possible optic migraine or possibly retinal involvement or optic nerve involvement. The hospitalist service was asked to evaluate for admission. She will be admitted under inpatient status for: 1. Visual deficit: Again, etiology unclear. Certainly, differential is broad. She definitely has risk factors for cerebrovascular disease. I did touch base with Dr. Rosen who recommended touching base with Ophthalmology, which I am going to attempt to do today. I will go ahead and get an MRI of the brain, get a CTA of the head and neck. We will try to get an echo at some point , depending on MRI findings. I will again at this point touch base with Ophthalmology to see if there are any further recommendations that they recommend, we will get neuro checks every 2 hours, we will check a lipid panel and an A1c and we will place her on telemetry and EKG is pending. 2. Chronic kidney disease: Her creatinine is stable. We will follow this while she is here. 3. Anemia: H and H appears to be right at baseline. We will continue with her ferrous gluconate. 4. Diabetes: Her sugar is 610. It is now 490. I will put her on lispro sliding scale every 4 hours. We will check an A1c. 5. Congestive heart failure and cardiomyopathy: She does not appear to be in acute failure. We will continue meds as prescribed and follow. 6. History of chronic obstructive pulmonary disease: She is noncompliant with her CPAP. We will encourage the use of this but again, she has been noncompliant in the outpatient setting. 7. Chronic obstructive pulmonary disease: We will go ahead and continue meds as prescribed. I did order p.r.n. albuterol. 8. Spinal stenosis: Tylenol p.r.n. is available for pain. 9. Cardiomyopathy: Again, continue meds as prescribed. 10. Hyperlipidemia: Continue statin therapy. 11. Hypertension: Continue meds as prescribed. 12. DVT prophylaxis: She will be placed on heparin subcu. 13. Code status: She is a DNR. 13. Fluids, electrolytes, and nutrition: She can have a consistent carbohydrate diet. TIME SPENT: Time spent on the admission was approximately 60 minutes; greater than half the time was spent [id number] with the patient obtaining my history and physical, the other half time is spent going over the plan of care with the patient and implementing plan of care. I discussed the plan of care with my attending, Dr. Carty. She is in agreement. VINCE ALCALA NP CC: Dr. Pena; Dr. Rosen* [id number]/[facility] #: [id number] WENDY
[2016-11-22] MEDS: Insulin LISPRO* 1 UNITS UNIT SUBCUT SCH ×6 (01:55→22:06)
[2016-11-22] MEDS: Levothyroxine TAB* 25 MCG TAB PO SCH (05:53)
[2016-11-22 06:53] LABS: Comments Flag Yes; Hematocrit 28 % (35-47); Hemoglobin 8.6 g/dl (12.0-16.0); Mean Corpuscular HGB Conc 31 g/dl (31-36); Mean Corpuscular Hemoglobin 22 pg (27-31); Mean Corpuscular Volume 72 fL (80-97); Red Blood Count 3.92 10^6/ul (4.0-5.4); Red Cell Distribution Width 20 % (10.5-15); White Blood Count 6.2 10^3/ul (3.5-10.8)
[2016-11-22 06:54] LABS: Add Diff/Slide Review? Manual Diff Added
[2016-11-22 07:08] LABS: BUN/Creatinine Ratio 17.9 (8-20); Calcium 8.4 mg/dL (8.6-10.3); EGFR Non-African American 47.4 (>60); HDL Cholesterol 39.6 mg/dL; Potassium 3.5 mmol/L (3.5-5.0)
[2016-11-22 07:17] LABS: Eosinophils % 3 % (0-6); Neutrophil % 75 % (38-83); Reactive Lymph % 1 % (0-6)
[2016-11-22 07:18] LABS: Hypochromasia 1+; Microcytosis 1+; Polychromasia 1+; Schistocytes 1+
[2016-11-22] MEDS ORDERED: Aspirin EC Low Dose* 81 MG TAB.EC PO SCH (09:00)
[2016-11-22] MEDS: Spironolactone TAB* 25 MG PO SCH (10:35)
[2016-11-22] MEDS: Ferrous Gluconate TAB* 324 MG TAB PO SCH ×2 (10:35→22:06)
[2016-11-22] MEDS: Atorvastatin* 10 MG TAB PO SCH (10:35)
[2016-11-22] MEDS: Aspirin Low Dose CHEW TAB* 81 MG PO SCH (10:35)
[2016-11-22] MEDS: Oxybutynin XL TAB* 5 MG PO SCH (10:35)
[2016-11-22] MEDS: Losartan TAB* 25 MG PO SCH ×2 (10:35→22:06)
[2016-11-22] MEDS: Carvedilol TAB* 25 MG PO SCH ×2 (10:35→22:06)
[2016-11-22] MEDS: Potassium Chlor TAB* 20 MEQ TAB.ER PO SCH ×2 (10:35→22:07)
[2016-11-22] MEDS: Bumetanide TAB* 2 MG PO SCH ×2 (10:35→22:06)
[2016-11-22] MEDS: DULoxetine DR CAP* 20 MG CAP.DR PO SCH (13:06)
[2016-11-22 13:15] LABS: Erythrocyte Sed Rate 46 mm/Hr (0-40)
--- NOTE | 2016-11-22 14:33 | PN ---
Subjective Date of Service: 11/22/16 Interval History: This is a 76 yo female with poorly controlled DM and CKD who presented with vision loss to her L eye. Initial imaging was unremarkable. Initial glucose was ~600 mg/dl. Today, she reports that her vision has improved somewhat, she can see most thing in her L visual field. Some blurred vision from the L eye. No new numbness, weakness. She does have a chronic neuropathy affecting her hands and feet however. She is complaining of leg cramps today. Objective Active Medications: Acetaminophen (Tylenol Tab*) 650 mg PO Q4H PRN PRN Reason: FEVER/PAIN Last Admin: 11/22/16 05:53 Dose: 650 mg Albuterol (Ventolin 2.5 Mg/3 Ml Neb.Rachel*) 2.5 mg INH Q2H PRN PRN Reason: SOB/WHEEZING Aspirin (Aspirin Low Dose Tab*) 81 mg PO DAILY [facility] Last Admin: 11/22/16 10:35 Dose: 81 mg Atorvastatin Calcium (Lipitor*) 10 mg PO DAILY [facility] Last Admin: 11/22/16 10:35 Dose: 10 mg Bumetanide (Bumex Tab*) 2 mg PO BID [facility] Last Admin: 11/22/16 10:35 Dose: 2 mg Carvedilol (Coreg Tab*) 25 mg PO BID [facility] Last Admin: 11/22/16 10:35 Dose: 25 mg Dextrose (D50w Syringe 50 Ml*) 12.5 gm IV PUSH .FOR FS < 60 - SS PRN PRN Reason: FS < 60 Duloxetine HCl (Cymbalta Cap*) 20 mg PO DAILY [facility] Last Admin: 11/22/16 13:06 Dose: 20 mg Ferrous Gluconate (Fergon Tab*) 324 mg PO BID [facility] Last Admin: 11/22/16 10:35 Dose: 324 mg Insulin Human Lispro (Humalog*) 0 units SUBCUT ACHS [facility] PRN Reason: Protocol Last Admin: 11/22/16 12:04 Dose: Not Given Levothyroxine Sodium (Synthroid Tab*) 25 mcg PO 0600 [facility] Last Admin: 11/22/16 05:53 Dose: 25 mcg Losartan Potassium (Cozaar Tab*) 50 mg PO BID [facility] Last Admin: 11/22/16 10:35 Dose: 50 mg Ondansetron HCl (Zofran Inj*) 4 mg IV Q6H PRN PRN Reason: NAUSEA Oxybutynin Chloride (Ditropan Xl Tab*) 10 mg PO DAILY [facility] PRN Reason: Protocol Last Admin: 11/22/16 10:35 Dose: 10 mg Potassium Chloride (Klor Con Er Tab*) 20 meq PO BID [facility] Last Admin: 11/22/16 10:35 Dose: 20 meq Spironolactone (Aldactone Tab*) 25 mg PO DAILY [facility] Last Admin: 11/22/16 10:35 Dose: 25 mg Terazosin HCl (Hytrin Cap*) 10 mg PO BEDTIME [facility] Last Admin: 11/21/16 20:23 Dose: 10 mg Vital Signs: Temp Pulse Resp BP Pulse Ox 99.0 F 67 16 128/62 100 11/22/16 11:49 11/22/16 11:49 11/22/16 11:49 11/22/16 11:49 11/22/16 11:49 Oxygen Devices in Use Now: None Appearance: Well appearing elderly female in NAD Respiratory: Symmetrical Chest Expansion and Respiratory Effort, Clear to Auscultation Cardiovascular: NL Sounds; No Murmurs; No JVD, RRR Abdominal: NL Sounds; No Tenderness; No Distention Extremities: No Edema Skin: No Rash or Ulcers Neurological: Alert and Oriented x 3, - - CN II-XII intact, direct visual field testing is grossly normal, strength testing symmetric and intact Result Diagrams: 11/22/16 06:01 11/22/16 06:01 Diagnostic Imaging: CTA head/neck - WNL CT brain - NAD CXR - NAD Echo - pend MRI brain - pend Assess/Plan/Problems-Billing Assessment: This is a 76 yo female with poorly controlled IDDM, anemia, stage III CKD, ONUR, COPD, spinal stenosis, and CHF who presented with c/o vision changes - Patient Problems (1) Vision changes Comment: C/o L lateral visual field deficit from her L eye only with some blurring of the associated eye CVA v. optic nerve ischemia CTA brain neg at admission Exam nearly normal today MRI is pending Appreciated neuro consult (2) Type 2 diabetes mellitus Comment: Poorly controlled Initial glucose 600 mg/dl, now controlled HgbA1c 13.1% Patient reports that she often forgets her pills and insulin Discussed techniques to increase compliance in detail (3) COPD (chronic obstructive pulmonary disease) Comment: No acute exacerbation (4) Chronic combined systolic and diastolic CHF (congestive heart failure) Comment: Continue home medications No evidence of acute exacerbation LVEF 40-45% on echo 10/2014 (5) Stage III chronic kidney disease Comment: Stable (6) ONUR (obstructive sleep apnea) Comment: Non-compliant with CPAP (7) DVT prophylaxis Comment: SCDs (8) Full code status Status and Disposition: Inpatient. Pending MRI, likely discharge tomorrow
[2016-11-22 14:43] LABS: Magnesium 1.5 mg/dL (1.9-2.7)
[2016-11-22] MEDS ORDERED: Magnesium Sulf 4 GM/100 ML IV* 4,000 MG/100 ML BAG IVPB ONE (14:53)
--- NOTE | 2016-11-22 16:41 | CONS ---
NEUROLOGY CONSULTATION: DATE OF CONSULT: 11/22/16. ROOM: She is in room 436. REFERRING PROVIDER: Vince Alcala NP. PRIMARY CARE PROVIDER: Dr. Pena CHIEF COMPLAINT: Visual changes. HISTORY OF PRESENT ILLNESS: Erika Hansen is a 76-year-old right-handed woman who was in her usual state of health the day prior to admission when she noted difficulty with vision to her left side out of her left eye only. Her is present and they were at [employer] at that time and she was driving the motorized scooter into [place]. She refused evaluation and on the following day noted 2 to 3 squares and circles in her left lower visual quadrant and her vision remained blurry and so she agreed to come into the hospital. Today, she still notes some blurry vision in her left eye fairly diffusely, but particularly in the left side out of her left eye only. She has not had any problems with headaches or eye pain. There has been no recent head or neck trauma. There is no history of diabetic retinopathy, but she says that she has had cataracts out and has borderline glaucoma. She is on aspirin 81 mg a day at home. When she presented to the emergency room her blood sugar was in excess of 600. PAST MEDICAL HISTORY: Notable for chronic anemia, diabetes, stage 3 kidney disease, ischemic cardiomyopathy, hyperlipidemia, hypertension, borderline glaucoma. PAST SURGICAL HISTORY: Notable for fracture of the left foot requiring surgery , hysterectomy, carpal tunnel release, rotator cuff repair, cataract extractions. MEDICATIONS AT HOME: Consistent of 1. Lantus insulin. 2. Zaroxolyn 2.5 mg p.o. t.i.d. 3. Cozaar 50 mg p.o. b.i.d. 4. Synthroid 25 mcg p.o. daily. 5. Lantus insulin. 6. Cymbalta 20 mg p.o. daily. 7. Coreg 25 mg p.o. b.i.d. 8. Aspirin 81 mg p.o. daily. 9. Aldactone 25 mg p.o. daily. 10. Detrol 4 mg p.o. daily. 11. Hytrin 10 mg p.o. q.h.s. 12. Zocor 20 mg p.o. daily. 13. Metformin 1500 mg q.a.m. and 1000 mg q.h.s. 14. Glyburide 10 mg p.o. b.i.d. 15. Bumex 2 mg p.o. b.i.d. ALLERGIES: CAPTOPRIL. FAMILY HISTORY: Noncontributory. REVIEW OF SYSTEMS: Is notable for numbness in her feet and hands, which she attributes to diabetic neuropathy. There is no pain in her feet. She gets occasional migratory stabbing head pains, but no other history of headaches. No problems with eye pain. No numbness on the face. No jaw pain or problems with chewing. No recent chills or sweats. No recent change in medications. No recent intestinal issues. Her weight has been stable. She gets short of breath easily. She can only walk short distances because of the numbness and weakness in her legs. No recent falls. No history of seizures. No history of stroke. PHYSICAL EXAMINATION: General: She is obese. Vital Signs: She has been afebrile throughout her hospital stay. Blood pressure was elevated when she came in it about 160 over 90 to 100, but has come down and it is most recently 138/54. Heart rate is in the 70s and regular, respirations 16, and oxygen saturation is 96% on room air. Heart: Rate is in regular rate and rhythm without murmurs. Carotid pulses are hard to feel, but there are no bruits auscultated. Lungs: Clear bilaterally. Neurologic: Pupils are, in room light , about 3 mm reacting consensually to light to 2 mm. I do not see any afferent pupillary defect. There is mild ptosis of the right eye. Visual metz are normal on the right eye. Visual metz in the left eye notable for a left superior quadrantanopia in the temporal field and has some blurry vision, but able to finger count in the left lower visual field. Visual acuity is 20/30 bilaterally corrected on a near card. Funduscopic exam reveals silver wiring but I do not see any hemorrhages. Optic discs are a little bit pale. I do not see any hemorrhages, but it was a nondilated exam and I do not have the good view of the periphery. Facial musculature is symmetric. Facial sensation is intact and symmetric to light touch. Palate and tongue appeared normal. Speech is clear. Hearing is intact. Neck strength is normal. Motor exam reveals intrinsic hand muscle atrophy and weakness. She has mild ankle dorsiflexor weakness bilaterally worse on the right. She has mild hip flexor weakness bilaterally. There is no rigidity or spasticity in the limbs. She is areflexed. Plantars are flexor. Sensory exam is notable for stocking loss of sensation to all modalities. Gait is wide based and very cautious with a cane. She is alert and oriented and really a very good historian. Memory is intact and language is fluent. She has good attention, concentration, and adequate fund of knowledge. There is no tremor, myoclonus, or asterixis. DIAGNOSTIC STUDIES/LAB DATA: Laboratory data includes CBC on admission notable for hemoglobin 8.7, hematocrit 29, platelet count 145, which is stable. Chemistries notable for glucose of 610 when she was admitted, it is down to 122 today. Hemoglobin A1c this morning is 13.5%. CRP yesterday was mildly elevated at 8.43. Cholesterol this morning 169, LDL 102. Sedimentation rate yesterday was 49, upper limit of normal 40. CT of the brain was reviewed and revealed subcortical low density consistent with chronic ischemic changes. CT angiogram of head and neck reveals some atherosclerotic changes, but no significant carotid or intracranial stenosis. Perhaps she has had a probable retinal ischemia or possibly optic nerve ischemia. Given her severe vascular risk factors and uncontrolled hyperglycemia, I keep her here another day to stabilize those and get an MRI of her brain without contrast tomorrow. If that does not show an acute cerebrovascular event, I think she should be discharged on her usual medications to be seen by Ophthalmology. I discussed her case with Dr. Samir Kelly who kindly agree to see her either today or when she is discharged tomorrow or she may choose to see Dr. Vargas who is her dean of graduate studies from prior care. I will discuss my impression with SOFIA Kimble. CC: Samir Kelly MD; Braden Vargas MD* [id number]/[facility] #: [id number] [facility]
[2016-11-22] MEDS: Terazosin CAP* 5 MG PO SCH (22:07)
[2016-11-23] MEDS: Levothyroxine TAB* 25 MCG TAB PO SCH (05:45)
[2016-11-23 06:25] LABS: BUN/Creatinine Ratio 21.4 (8-20); Calcium 7.8 mg/dL (8.6-10.3); EGFR Non-African American 45.1 (>60); Magnesium 2.1 mg/dL (1.9-2.7); Potassium 3.7 mmol/L (3.5-5.0)
[2016-11-23] MEDS ORDERED: Insulin GLARGINE(*) 1 UNITS UNIT SUBCUT SCH (08:00)
[2016-11-23] MEDS: Aspirin Low Dose CHEW TAB* 81 MG PO SCH (08:53)
[2016-11-23] MEDS: DULoxetine DR CAP* 20 MG CAP.DR PO SCH (08:53)
[2016-11-23] MEDS: Ferrous Gluconate TAB* 324 MG TAB PO SCH (08:53)
[2016-11-23] MEDS: Losartan TAB* 25 MG PO SCH (08:53)
[2016-11-23] MEDS: Spironolactone TAB* 25 MG PO SCH (08:53)
[2016-11-23] MEDS: Atorvastatin* 10 MG TAB PO SCH (08:53)
[2016-11-23] MEDS: Potassium Chlor TAB* 20 MEQ TAB.ER PO SCH (08:53)
[2016-11-23] MEDS: Oxybutynin XL TAB* 5 MG PO SCH (08:53)
[2016-11-23] MEDS: Carvedilol TAB* 25 MG PO SCH (08:53)
[2016-11-23] MEDS: Insulin LISPRO* 1 UNITS UNIT SUBCUT SCH ×2 (08:54→12:28)
[2016-11-23] MEDS: Bumetanide TAB* 2 MG PO SCH (08:54)
--- NOTE | 2016-11-23 11:07 | ECHO ---
Patient: TOSIN CASTRO [facility] Rec#: [id number] : 1940 Date: 11/23/2016 Age: 76y Height: 160.02 cm / 63.0 in Weight: 91.63 kg / 202.0 lbs Sex: F BSA: 1.94 Room#: 436 Admit Date#: 11/21/2016 Type: Inpatient Referring: Jake Joshi Reading: Swapnil Horton MD Account Administrator: Ayesha Nevarez RDCS,RDMS CC: Danny Pena MD Transthoracic Echocardiogram Indication: CVA BP: 121/58 HR: 68 Rhythm: NSR Findings History: Cardiomyopathy, DM, HTN, CHF, CKD, ONUR, HLD Technical Comments: The study quality is good. Completed 1010 Left Ventricle: The left ventricular chamber size is normal. Moderate concentric left ventricular hypertrophy is observed. Mild global hypokinesis of the left ventricle is observed. There is mild to moderately decreased left ventricular systolic function. The estimated ejection fraction is 40-45%. Abnormal left ventricular diastolic filling is observed, consistent with impaired relaxation. Left Atrium: The left atrium is mildly dilated. Right Ventricle: The right ventricular chamber size and systolic function are within normal limits. Right Atrium: The right atrial cavity size is normal. There were late bubbles seen in the left atrium. A patent foramen ovale is not demonstrated by color Doppler. Aortic Valve: The aortic valve is trileaflet. The aortic valve leaflets are mildly thickened. There is no evidence of aortic regurgitation. There is no evidence of aortic stenosis. Mitral Valve: The mitral valve leaflets are mildly thickened. There is a trace of mitral regurgitation. There is no evidence of mitral stenosis. Tricuspid Valve: The tricuspid valve leaflets are normal. There is trace tricuspid regurgitation. Pulmonic Valve: The pulmonic valve appears normal. There is a trace pulmonic regurgitation. Pericardium: There is no significant pericardial effusion. Aorta: The aortic root appears normal. There is no dilatation of the aortic arch. Pulmonary Artery: The main pulmonary artery appears normal. Venous: The inferior vena cava is not visualized. Contrast: Intravenous agitated saline contrast was used to assess intracardiac shunting. Summary: There are no significant changes when compared to the previous study done on 11/19/14 Conclusions Moderate concentric left ventricular hypertrophy is observed. There is mild to moderately decreased left ventricular systolic function. The estimated ejection fraction is 40-45%. A patent foramen ovale is not demonstrated by color Doppler. There is no evidence of aortic regurgitation. There is a trace of mitral regurgitation. There is trace tricuspid regurgitation. There is no significant pericardial effusion. There are no significant changes when compared to the previous study done on 11/19/14 Measurements Name Value Normal Range RVIDd (AP) 2D 2 cm (0.9 - 2.6) RVDdMajor (2D) 2.6 cm (2.2 - 4.4) RAd ISD 4CH 4.2 cm (3.4 - 4.9) RA (A4C)W 3.8 cm (2.9 - 4.6) IVSd (2D) 1.1 cm (0.6 - 1) LVPWd (2D) 1.3 cm (0.6 - 1) LVIDd (2D) 5.3 cm (3.6 - 5.4) LVIDs (2D) 4 cm - LV FS (2D) 25 % (25 - 45) Aortic Annulus 1.9 cm (1.4 - 2.6) Ao root diameter (2D) 2.6 cm (2.1 - 3.5) Ascending Ao 2.6 cm (2.1 - 3.4) Aortic arch 2.6 cm (1.8 - 3.4) LA dimension (AP) 2D 4.5 cm (2.3 - 3.8) LAd ISD 4CH 5.6 cm (2.9 - 5.3) LA ISD 4CH W 4.7 cm (2.5 - 4.5) Name Value Normal Range LA ESV SP 4CH (A/L) 65.68 ml - LA ESV SP 2CH (A/L) 45.63 ml - LA ESV BP (A/L) 55.93 ml - LA ESV BP (A/L) index 29 ml/m2 - LA ESV SP 4CH (MOD) 63.07 ml - LA ESV SP 2CH (MOD) 44.17 ml - Name Value Normal Range MV E-wave Vmax 0.7 m/sec - MV deceleration time 210.4 msec - MV A-wave Vmax 0.9 m/sec - MV E:A ratio 0.8 ratio - P. vein S-wave Vmax 0.5 m/sec - P. vein D-wave Vmax 0.3 m/sec - P. vein S:D Vmax ratio 1.6 ratio - P. vein A-wave duration 147.6 msec - LV septal e' Vmax 0.04 m/sec - LV lateral e' Vmax 0.04 m/sec - LV E:e' septal ratio 17.5 ratio - LV E:e' lateral ratio 17.5 ratio - Name Value Normal Range AV Vmax 1.5 m/sec - AV VTI 34 cm - AV peak gradient 9 mmHg - AV mean gradient 4.9 mmHg - LVOT Vmax 1.1 m/sec - LVOT VTI 25.1 cm - LVOT peak gradient 5 mmHg - LVOT mean gradient 2.4 mmHg - LISA Vmax 0.9 m/sec - Name Value Normal Range RAP 8 mmHg - Name Value Normal Range PV Vmax 0.8 m/sec - PV peak gradient 2.6 mmHg -
[2016-11-23 15:30] VITALS: BP 117/46
--- NOTE | 2016-11-23 17:08 | RAD ---
INDICATION: 76-year-old with visual change. Diabetic neuropathy. COMPARISON: CTA head and neck November 13, 2016; CT brain November 21, 2016 TECHNIQUE: sagittal T1 FLAIR, axial diffusion, axial T1 FLAIR, axial T2, axial T2 FLAIR, and SWI images were acquired. FINDINGS: Craniocervical junction: The craniocervical junction appears normal. Ventricles/sulci: There is age-related cortical atrophy with compensatory dilatation of the CSF spaces. Brain parenchyma: There are moderate T2-weighted hyperintensities in the periventricular and subcortical white matter consistent with chronic microvascular ischemia. Intracranial hemorrhage: There is no intracranial hemorrhage. Extra-axial spaces: There are no extra-axial fluid collections or masses. Orbits: There are no MR abnormalities of the orbital structures. Paranasal sinuses/mastoid: The paranasal sinuses are clear. The mastoid air cells are well aerated.. Vascular: No abnormalities are seen. Other: None IMPRESSION: CORTICAL ATROPHY WITH MODERATE CHRONIC MICROVASCULAR ISCHEMIC CHANGE. NO ACUTE MRI FINDINGS
--- NOTE | 2016-11-24 00:39 | PN ---
NEUROLOGICAL FOLLOWUP: DATE OF SERVICE: 11/23/2016. PATIENT OF: SOFIA Kimble and Dr. Rosen.* HISTORY: This is a 76-year-old woman I am seeing in followup for her left binocular visual symptoms. She states this improved today and her headache is just mild off on the left frontotemporal area. She has had no numbness or weakness that is acute. She remains on her aspirin 81 mg and her medicines for diabetes and hypertension. Medications as previous without change. PHYSICAL EXAMINATION: Temperature 98.2, pulse 67, respirations 20, blood pressure 117/46. She is alert and oriented with normal speech and comprehension. Cranial nerves II through XII are intact other than a decreased vision in her left eye to the left and not in her right eye. No tenderness to palpation in her temporal areas either side. Motor exam revealed normal tone and strength. Reflexes were trace to 1, toes were downgoing. Chest: Clear. Cardiovascular: Regular rate and rhythm. Abdomen: Soft with positive bowel sounds. LABORATORY DATA/DIAGNOSTIC STUDIES: Sed rate was 46 on the . ASSESSMENT: Her MRI scan has not been performed yet, which is what Dr. Rosen was waiting for prior to discharge. If there are any abnormalities, please call me and I will review, but her symptoms do not sound like it is due to the effect of acute stroke, I feel it is likely from ocular problems and I agree that she needs to see an mechanical product design engineer upon discharge. Thank you for sharing the case. [id number]/[facility] #: [id number] WENDY
--- NOTE | 2016-11-24 02:20 | DS ---
DISCHARGE SUMMARY: DATE OF ADMISSION: 11/21/16 DATE OF DISCHARGE: 11/23/16 PRIMARY CARE PROVIDER: Danny Pena MD DISCHARGING PROVIDER: SOFIA Oneill SUPERVISING PHYSICIAN: Nakita Junior MD* (dictated by SOFIA Oneill). CONSULTING NEUROLOGIST: Jose Rosen MD PRIMARY SPUD DRILLER: Braden Vargas MD PRIMARY DISCHARGE DIAGNOSES: 1. Left eye lateral visual field deficit - mostly resolved perhaps result of retinal or optic nerve ischemia, no evidence of acute infarct on MRI. 2. Severe hyperglycemia secondary to poorly controlled insulin-depenedent diabetes. SECONDARY DISCHARGE DIAGNOSES: 1. Chronic obstructive pulmonary disease without acute exacerbation. 2. Combined systolic and diastolic heart failure without acute exacerbation with last EF of 40% to 45%. 3. Stage 3 chronic kidney disease, which appears to be stable. 4. Obstructive sleep apnea, noncompliant with CPAP. DISCHARGE MEDICATIONS: 1. Bumex 2 mg p.o. twice daily. 2. Carvedilol 25 mg p.o. twice daily. 3. Cymbalta 20 mg p.o. daily. 4. Ferrous gluconate 325 mg p.o. twice daily. 5. Lantus 80 units in the morning and 60 units in the evening. 6. Levothyroxine 25 mcg p.o. daily. 7. Losartan 50 mg p.o. twice daily. 8. Zaroxolyn 2.5 mg p.o. twice a week. 9. Nystatin powder applied topically twice daily. 10. Potassium chloride 20 mEq p.o. b.i.d. 11. Simvastatin 20 mg p.o. daily. 12. Spironolactone 25 mg p.o. daily. 13. Terazosin 10 mg p.o. at bedtime. 14. Detrol LA 4 mg p.o. daily. 15. Triamcinolone 0.1% cream applied topically daily. 16. Glyburide 10 mg p.o. twice daily. 17. Metformin 1000 mg in the morning and 1500 mg in the evening. MEDICATION CHANGES: None. HOSPITAL IMAGIN. CT of the brain demonstrates no acute process. 2. Chest x-ray demonstrates no acute process. 3. CTA of the head and neck shows no significant stenosis, AVM, or aneurysm. 4. MRI of the brain shows no acute or subacute infarct. There is evidence of moderate chronic microvascular ischemic changes and cortical atrophy. 5. Transthoracic echocardiogram shows an EF of 40% to 45% with diastolic dysfunction, moderate LVH, and global hypokinesis without evidence of PFO that appears unchanged since prior echo in 2015. 6. EKG demonstrates a sinus rhythm without ischemic change. HOSPITAL COURSE: This is a 76-year-old female with history of poorly controlled diabetes, stage 3 chronic kidney disease, combined systolic and diastolic heart failure, obstructive sleep apnea, COPD, chronic anemia, and spinal stenosis who presented to the emergency department with complaints of difficulty seeing out of her left eye. Symptoms occurred rather acutely where she lost her left visual metz. It seemed to only be affecting her left eye; however, and she did have some associated blurred vision as well. When she reached the emergency department, she had severe hyperglycemia with a glucose of greater than 600. The remainder of her vitals were essentially within normal limits. She underwent a CT of the brain, which did not show any acute process. She was subsequently admitted for concern of acute stroke. The patient was evaluated by neurologist, Dr. Rosen, who felt that this less likely represented a stroke as it seems like only one eye was affected rather than an entire left visual field defect that would be more consistent with an intracranial pathology. The patient underwent MRI, which did not demonstrate an acute infarct and her eye sight returned nearly to normal. On direct confrontation, visual metz were grossly intact and visual acuity testings shows approximately 20/30 in the left eye. The patient's symptoms appeared to be most consistent with the retinal ischemia or optic nerve ischemia. Dr. Rosen, neurologist, spoke with agricultural technical officer, Dr. Kelly, who recommended Ophthalmology followup, but did not suggest emergent evaluation. The patient's diabetes is very poorly controlled and the patient is well aware that her compliance is of major concern. She states that she simply often forgets to take her insulin as well as her oral medications. She states that she often reminds her and forgets to take it herself. Discussed multiple ways that she may set reminders for herself. She declines diabetic education on either an inpatient or outpatient basis, stating that she knows what she needs to do. It is just a matter of getting it done. DISPOSITION AND FOLLOWUP PLAN: The patient is being discharged to home without any changes to her home medications. She lives at home with her . She requires close followup with Ophthalmology. A message was left with the office for Dr. Vargas to contact the patient in the morning to get a followup appointment within 24 to 48 hours. The patient is encouraged to call as well. She also requires close followup with her primary care provider to review further control of her diabetes. SOFIA ONEILL CC: Dr. Pena; Dr. Vargas* [id number]/[facility] #: [id number] MTDD
== END 2016-11-23 18:11 | disposition home or self-care (01) | DRG 638 ==
LOC: ED 12:49 → MEDTELE 15:27
PROVIDERS: ADMIT Hospitalist; ATTEND Internal Medicine
DX: E11.65 Type 2 diabetes mellitus with hyperglycemia (principal); H35.82 Retinal ischemia; I13.0 Hypertensive heart and chronic kidney disease with heart failure and stage 1 through stage 4 chronic kidney disease, or unspecified chronic kidney disease; I50.42 Chronic combined systolic (congestive) and diastolic (congestive) heart failure; E11.22 Type 2 diabetes mellitus with diabetic chronic kidney disease; H40.009 Preglaucoma, unspecified, unspecified eye; H53.462 Homonymous bilateral field defects, left side; G47.33 Obstructive sleep apnea (adult) (pediatric); J44.9 Chronic obstructive pulmonary disease, unspecified; M48.00 Spinal stenosis, site unspecified; E78.5 Hyperlipidemia, unspecified; D53.9 Nutritional anemia, unspecified; E11.40 Type 2 diabetes mellitus with diabetic neuropathy, unspecified; I25.5 Ischemic cardiomyopathy; E66.9 Obesity, unspecified; H02.401 Unspecified ptosis of right eyelid; N18.3 Chronic kidney disease, stage 3 (moderate); Z66 Do not resuscitate; Z91.19 Patient's noncompliance with other medical treatment and regimen; Z91.14 Patient's other noncompliance with medication regimen; Z79.4 Long term (current) use of insulin; Z90.710 Acquired absence of both cervix and uterus; Z88.8 Allergy status to other drugs, medicaments and biological substances; Z83.3 Family history of diabetes mellitus; Z87.891 Personal history of nicotine dependence; Z98.42 Cataract extraction status, left eye; Z98.41 Cataract extraction status, right eye; Z68.35 Body mass index [BMI] 35.0-35.9, adult
CPT/HCPCS: 36415; 70450; 70496; 70498; 70551; 71010; 80048; 80053; 80061; 81003; 81015; 82947; 83036; 83605; 83735; 84484; 85025; 85060; 85610; 85652; 86140; 87086; 93005; 93306; A9270-GY; Q9967

== ENCOUNTER 2017-03-09 17:49 | Inpatient (IN) | payer MEDICARE, OTHER ==
[2017-03-09 18:52] LABS: Hematocrit 31 % (35-47); Hemoglobin 9.6 g/dl (12.0-16.0); Mean Corpuscular HGB Conc 31 g/dl (31-36); Mean Corpuscular Hemoglobin 24 pg (27-31); Mean Corpuscular Volume 78 fL (80-97); Mean Platelet Volume 10 um3 (7.4-10.4); Red Blood Count 3.96 10^6/ul (4.0-5.4); Red Cell Distribution Width 16 % (10.5-15); White Blood Count 6.6 10^3/ul (3.5-10.8)
--- NOTE | 2017-03-09 18:52 | RAD ---
INDICATION: Short of breath COMPARISON: November 13, 2016 TECHNIQUE: An AP portable view obtained at 1823 hours is submitted. FINDINGS: Bones/Soft Tissues: There are no acute bony findings. Cardiomediastinal: The heart, central pulmonary vessels, and interstitium are prominent compatible with moderate interstitial congestion. Lungs: There are no focal consolidative changes. Pleura: There are no pleural effusions. Other: None IMPRESSION: MODERATE VASCULAR CONGESTION.
[2017-03-09 18:56] LABS: Albumin 3.3 g/dL (3.2-5.2); BUN/Creatinine Ratio 12.2 (8-20); C Reactive Protein 3.9 mg/L (< 5.00); Calcium 9.3 mg/dL (8.6-10.3); EGFR African American 71.2 (>60); EGFR Non-African American 55.3 (>60); Globulin 3.8 g/dL (2-4); Potassium 3.7 mmol/L (3.5-5.0); Total Bilirubin 0.4 mg/dL (0.2-1.0); Total Protein 7.1 g/dL (6.4-8.9)
[2017-03-09 18:57] LABS: Troponin I 0.01 ng/mL (<0.04)
[2017-03-09] MEDS ORDERED: Furosemide IV* 10 MG/ML 10 ML VIAL (100 MG) IV ONE (18:58)
--- NOTE | 2017-03-09 20:29 | HP ---
H&P (Free Text) History and Physical: PCP: Geovanny Moyer MD Date/Time: 03/09/2017 0730 CC: chest tightness HPI: Mrs Hansen is a 76F HX chronic sys/diastolic HF, DM2, CKD 3, & COPD presenting with 3 weeks of increasing L>R LE edema and admitted low sodium diet non-adherence. Today she experienced sudden onset of SOB associated with diffuse chest tightness. She denies radiation of the pain, palpitations, light- headedness, F/C, N/V, or other issues. PMedHx DM2 cardiomyopathy CHF CKD stg 3 COPD HTN HLD anemia ONUR spinal stenosis Ambulatory Orders Nursing to reconcile. Bumetanide TAB* [Bumex 2 MG TAB*] 2 mg PO BID 07/16/13 Losartan TAB* [Cozaar TAB*] 50 mg PO BID 07/16/13 Terazosin CAP* [Hytrin CAP 5 MG*] 10 mg PO BEDTIME 07/16/13 metFORMIN* [Glucophage 500 MG TAB *] 1,000 tab PO QAM 07/16/13 metFORMIN* [Glucophage 500 MG TAB *] 1,500 mg PO QPM 03/09/16 Carvedilol TAB* [Coreg TAB*] 25 mg PO BID 09/13/[address] CAP* [Cymbalta CAP*] 20 mg PO DAILY 09/13/16 Ferrous Gluconate TAB* [Fergon TAB*] 325 mg PO BID 09/13/16 Insulin GLARGINE(*) [Lantus(*)] 80 units SUBCUT QAM 09/13/16 Levothyroxine TAB* [Synthroid 25 MCG TAB*] 25 mcg PO DAILY 09/13/16 Metolazone TAB* [Zaroxolyn TAB*] 2.5 mg PO .TWICE A WEEK 09/13/16 Potassium Chlor TAB* [Potassium Chlor TAB 20 MEQ*] 20 meq PO BID 09/13/16 Simvastatin TAB(NF) [Zocor 20 MG (NF)] 20 mg PO DAILY 09/13/16 Spironolactone TAB* [Aldactone TAB 25 MG*] 25 mg PO DAILY 09/13/16 Tolterodine LA (NF) [Detrol LA (NF)] 4 mg PO DAILY 09/13/16 glyBURIDE TAB* [Diabeta TAB*] 10 mg PO BID 09/13/16 Insulin GLARGINE(*) [Lantus(*)] 60 units SUBCUT QPM 10/11/16 Nystatin TOP POWDER* 1 applic TOPICAL BID 10/11/16 Triamcinolone 0.1% CREAM (NF) [Kenalog 0.1% Cream (NF)] 1 applic TOPICAL DAILY 10/11/16 Allergies Captopril Allergy (Severe, Verified 12/29/16 10:39) Hives PSurgHx OU cataract extractions hernia repair hysterectomy rotator cuff repair carpal tunnel release ORIF L foot SocHx: former smoker, no alcohol or recreational drugs; lives with her ; full code status FamHx: Mother & Father: DM2 ROS: as above, otherwise reviewed and all were negative vitals: Vital Signs Temp 37.0 C 03/09/17 17:56 Pulse 70 03/09/17 19:00 Resp 23 03/09/17 19:00 BP 171/95 03/09/17 18:34 Pulse Ox 96 03/09/17 19:00 Intake & Output 03/08/17 03/09/17 03/09/17 23:59 11:59 23:59 Weight 92.986 kg Constitutional: NAD, normally developed, obese black female HEENM: atraumatic; sclera/conjunctiva: non-icteric/mildly injected; hearing: clinically intact; oropharynx: clear, mucosa moist Neck: soft tissue: non-tender; thyroid: normal Pulmonary: scant fine cellophane crackles B bases, fair to good aeration, no accessory muscle use CV: RR/RR, normal S1S2, no carotid bruit, no jugular venous distention, 2+ B DP/ PT, 1+ LLE/trace RLE edema Abdominal: soft, non-distended, non-tender, no rebound/guarding/rigidity, normoactive bowel sounds, no hepatosplenomegaly or masses, no costovertebral angle tenderness Musculoskeletal: general: grossly intact; gait: stable w/ cane; negative Michelle' s B, no palpable cords, mild/mod B calf tenderness to palpation Integumental: BLE w/ mild/mod chronic venous stasis changes/discoloration Psychiatric orientation: AA&O to PPS affect: calm mood: cooperative eye contact: fair content: reliable responses: timely insight: fair to good Testing: Lab Results 03/09/17 03/09/17 03/09/17 Range/Units 18:33 18:33 18:33 WBC (3.5-10.8) 10^3/ul RBC (4.0-5.4) 10^6/ul Hgb (12.0-16.0) g/dl Hct (35-47) % MCV (80-97) fL MCH (27-31) pg MCHC (31-36) g/dl RDW (10.5-15) % Plt Count (150-450) 10^3/ul MPV (7.4-10.4) um3 Neut % (Auto) (38-83) % Lymph % (Auto) (25-47) % [place] % (Auto) (1-9) % Eos % (Auto) (0-6) % Baso % (Auto) (0-2) % Absolute Neuts (auto) (1.5-7.7) 10^3/ul Absolute Lymphs (auto) (1.0-4.8) 10^3/ul Absolute Monos (auto) (0-0.8) 10^3/ul Absolute Eos (auto) (0-0.6) 10^3/ul Absolute Basos (auto) (0-0.2) 10^3/ul Absolute Nucleated RBC 10^3/ul Nucleated RBC % INR (Anticoag Therapy) 1.01 (0.89-1.11) D-Dimer, Quantitative 546 H (Less Than 230) ng/mL Sodium 139 (133-145) mmol/L Potassium 3.7 (3.5-5.0) mmol/L Chloride 104 (101-111) mmol/L Carbon Dioxide 32 (22-32) mmol/L Anion Gap 3 (2-11) mmol/L BUN 12 (6-24) mg/dL Creatinine 0.98 H (0.51-0.95) mg/dL Est GFR ( Amer) 71.2 (>60) Est GFR (Non-Af Amer) 55.3 (>60) BUN/Creatinine Ratio 12.2 (8-20) Glucose 68 L (70-100) mg/dL Lactic Acid (0.5-2.0) mmol/L Calcium 9.3 (8.6-10.3) mg/dL Total Bilirubin 0.40 (0.2-1.0) mg/dL AST 25 (13-39) U/L ALT 18 (7-52) U/L Alkaline Phosphatase 110 H (34-104) U/L Troponin I 0.01 (<0.04) ng/mL C-Reactive Protein 3.90 (< 5.00) mg/L B-Natriuretic Peptide 221 H ( - 100) pg/mL Total Protein 7.1 (6.4-8.9) g/dL Albumin 3.3 (3.2-5.2) g/dL Globulin 3.8 (2-4) g/dL Albumin/Globulin Ratio 0.9 L (1-3) 03/09/17 03/09/17 Range/Units 18:33 18:33 WBC 6.6 (3.5-10.8) 10^3/ul RBC 3.96 L (4.0-5.4) 10^6/ul Hgb 9.6 L (12.0-16.0) g/dl Hct 31 L (35-47) % MCV 78 L (80-97) fL MCH 24 L (27-31) pg MCHC 31 (31-36) g/dl RDW 16 H (10.5-15) % Plt Count 160 (150-450) 10^3/ul MPV 10 (7.4-10.4) um3 Neut % (Auto) 69.6 (38-83) % Lymph % (Auto) 15.8 L (25-47) % [place] % (Auto) 7.6 (1-9) % Eos % (Auto) 5.9 (0-6) % Baso % (Auto) 1.1 (0-2) % Absolute Neuts (auto) 4.6 (1.5-7.7) 10^3/ul Absolute Lymphs (auto) 1.0 (1.0-4.8) 10^3/ul Absolute Monos (auto) 0.5 (0-0.8) 10^3/ul Absolute Eos (auto) 0.4 (0-0.6) 10^3/ul Absolute Basos (auto) 0.1 (0-0.2) 10^3/ul Absolute Nucleated RBC 0.01 10^3/ul Nucleated RBC % 0.2 INR (Anticoag Therapy) (0.89-1.11) D-Dimer, Quantitative (Less Than 230) ng/mL Sodium (133-145) mmol/L Potassium (3.5-5.0) mmol/L Chloride (101-111) mmol/L Carbon Dioxide (22-32) mmol/L Anion Gap (2-11) mmol/L BUN (6-24) mg/dL Creatinine (0.51-0.95) mg/dL Est GFR ( Amer) (>60) Est GFR (Non-Af Amer) (>60) BUN/Creatinine Ratio (8-20) Glucose (70-100) mg/dL Lactic Acid 1.0 (0.5-2.0) mmol/L Calcium (8.6-10.3) mg/dL Total Bilirubin (0.2-1.0) mg/dL AST (13-39) U/L ALT (7-52) U/L Alkaline Phosphatase (34-104) U/L Troponin I (<0.04) ng/mL C-Reactive Protein (< 5.00) mg/L B-Natriuretic Peptide ( - 100) pg/mL Total Protein (6.4-8.9) g/dL Albumin (3.2-5.2) g/dL Globulin (2-4) g/dL Albumin/Globulin Ratio (1-3) ECG, personally reviewed: NSR rate 69, no ischemia CXR, personally reviewed: IMPRESSION: MODERATE VASCULAR CONGESTION. CTA chest, personally reviewed: ordered, pending ECHO (11/22/2016): Conclusions: Moderate concentric left ventricular hypertrophy is observed. There is mild to moderately decreased left ventricular systolic function. The estimated ejection fraction is 40-45%. A patent foramen ovale is not demonstrated by color Doppler. There is no evidence of aortic regurgitation. There is a trace of mitral regurgitation. There is trace tricuspid regurgitation. There is no significant pericardial effusion. There are no significant changes when compared to the previous study done on 11/19/14 Impression: 76F presenting with acute SOB with findings consistent with acute on chronic mixed systolic & diastolic HF DIAGNOSIS & PLAN Primary acute on chronic mixed systolic & diastolic HF : HX cardiomyopathy EF 40-45% w/ diastolic dysfunction : given asymmetric edema, sudden onset, elevated d-dimer; will check CTA chest : telemetry : trend troponin : furosemide diuresis : strict I&Os : daily weights : low sodium diet : supplemental oxygen : supportive care Secondary DM2 : A1c 7.5 12/2016 : insulin carb ratio diet : ACHS glucometry : corrective insulin : review meds once reconciled CKD stg 3a : stable, periodic monitoring COPD : review meds once reconciled HTN : review meds once reconciled HLD : review meds once reconciled anemia : stable, monitor periodically ONUR : not on CPAP Admission Rational: inpatient for CHF not anticipated to resolve adequately w/i 48h to allow for discharge DVTp: heparin SQ & SCDs Code Status: full HCP:
--- NOTE | 2017-03-09 22:02 | ED ---
Jeni Benitez Thomas, scribed for Mynor Ambrosio MD on 03/09/17 at 1833 . Shortness of Breath - HPI Summary HPI Summary: The patient is a 76 y/o F who presents to the ED c/o SOB on rest that began an hour ago. She chronically has SOB on exertion, but this current SOB is present even without movement. She additionally c/o chest tightness, left leg swelling, and a productive cough. She denies painful breathing and fever. She has a Hx of CHF, DM, HTN, and cardiomyopathy. She is not on home oxygen, although oxygen in the ED seems to help. She is accompanied by her . - History of Current Complaint Chief Complaint: EDShortnessOfBreath Time Seen by Provider: 03/09/17 17:58 Hx Obtained From: Patient, Family/Angle Dozer Operator - present Onset/Duration: Sudden Onset, Lasting Hours - onset 17:00 Timing: Constant Current Severity: Moderate Dyspnea At: Rest Aggrevating Factors: Nothing Alleviating Factors: Nothing Associated Signs & Symptoms: Cough (Productive), Chest Pain Unrelated to Cough, Edema - only to her L leg Related History: Similar Episode - prior episode of SOB that required hospitalization in the past - Allergy/Home Medications Allergies/Adverse Reactions: Allergies Allergy/AdvReac Type Severity Reaction Status Date / Time Captopril Allergy Severe Hives Verified 12/29/16 10:39 PMH/Surg Hx/FS Hx/Imm Hx Previously Healthy: No Endocrine/Hematology History: Reports: Hx Diabetes, Hx Anemia - chronic iron infusions Cardiovascular History: Reports: Hx Congestive Heart Failure, Hx Hypertension, Other Cardiovascular Problems/Disorders - cardiomyopathy Denies: Hx Pacemaker/ICD Respiratory History: Reports: Hx Chronic Obstructive Pulmonary Disease (COPD), Hx Sleep Apnea GI History: Reports: Hx Gastrointestinal Bleed, Hx Hiatal Hernia - s/p repair, Other GI Disorders - HELICOBACTER INFECTION History: Denies: Hx Renal Disease Musculoskeletal History: Reports: Hx Arthritis, Hx Back Problems, Other Musculoskeletal History - spinal stenosis Sensory History: Reports: Hx Cataracts - surgery with implants bilat eyes 96, Hx Contacts or Glasses Denies: Hx Hearing Aid Opthamlomology History: Reports: Hx Cataracts - surgery with implants bilat eyes 96, Hx Contacts or Glasses Neurological History: Reports: Other Neuro Impairments/Disorders - vertigo Psychiatric History: Reports: Other Psychiatric Issues/Disorders - PT REPORTS "STRESS" AND SAYS HER MD GAVE HER A MED FOR IT, UNSURE WHAT Denies: Hx Panic Disorder - Surgical History Surgery Procedure, Year, and Place: HERNIA. HYSTERECTOMY. CATERACTS. CARPAL TUNNEL. CYSTS REMOVED FROM BILATERAL ARMPITS. RTC RT. LT FOOT SURGERY - Immunization History Date of Tetanus Vaccine: UTD Date of Influenza Vaccine: 02/2016 Infectious Disease History: No Infectious Disease History: Denies: Traveled Outside the [place] in Last 30 Days - Family History Known Family History: Positive: Other - Yes - CHF (Mother) - Social History Alcohol Use: None Substance Use Type: Reports: None Hx Tobacco Use: Yes Smoking Status (MU): Former Smoker Have You Smoked in the Last Year: No Review of Systems Negative: Fever Positive: Other - POS: chest tightness Positive: Shortness Of Breath - SOB on rest, Cough - a productive cough. Negative: Other - NEG: painful breathing Positive: Edema - edema to her left leg All Other Systems Reviewed And Are Negative: Yes Physical Exam Triage Information Reviewed: Yes Vital Signs On Initial Exam: Initial Vitals Temp Pulse Resp BP Pulse Ox 98.6 F 76 22 152/93 95 03/09/17 17:56 03/09/17 17:56 03/09/17 17:56 03/09/17 17:56 03/09/17 17:56 Vital Signs Reviewed: Yes Appearance: Positive: Well-Appearing, No Pain Distress Skin: Positive: Warm, Skin Color Reflects Adequate Perfusion, Dry Head/Face: Positive: Normal Head/Face Inspection Eyes: Positive: Normal ENT: Positive: Normal ENT inspection Neck: Positive: Supple, Nontender, Other: - Mild JVD Respiratory/Lung Sounds: Positive: Breath Sounds Present, Other - There are crackles prison up both sides. Cardiovascular: Positive: RRR Abdomen Description: Positive: Nontender, Soft Bowel Sounds: Positive: Present Musculoskeletal: Positive: Edema Left. Negative: Edema Right Neurological: Positive: Normal Psychiatric: Positive: Normal, Affect/Mood Appropriate - Madai Coma Scale Coma Scale Total: 15 Diagnostics - Vital Signs Vital Signs Temp Pulse Resp BP Pulse Ox 03/09/17 17:56 98.6 F 76 22 152/93 95 - Laboratory Lab Results: Lab Results 03/09/17 03/09/17 03/09/17 Range/Units 18:33 18:33 18:33 WBC (3.5-10.8) 10^3/ul RBC (4.0-5.4) 10^6/ul Hgb (12.0-16.0) g/dl Hct (35-47) % MCV (80-97) fL MCH (27-31) pg MCHC (31-36) g/dl RDW (10.5-15) % Plt Count (150-450) 10^3/ul MPV (7.4-10.4) um3 Neut % (Auto) (38-83) % Lymph % (Auto) (25-47) % Tyler % (Auto) (1-9) % Eos % (Auto) (0-6) % Baso % (Auto) (0-2) % Absolute Neuts (auto) (1.5-7.7) 10^3/ul Absolute Lymphs (auto) (1.0-4.8) 10^3/ul Absolute Monos (auto) (0-0.8) 10^3/ul Absolute Eos (auto) (0-0.6) 10^3/ul Absolute Basos (auto) (0-0.2) 10^3/ul Absolute Nucleated RBC 10^3/ul Nucleated RBC % INR (Anticoag Therapy) 1.01 (0.89-1.11) D-Dimer, Quantitative 546 H (Less Than 230) ng/mL Sodium 139 (133-145) mmol/L Potassium 3.7 (3.5-5.0) mmol/L Chloride 104 (101-111) mmol/L Carbon Dioxide 32 (22-32) mmol/L Anion Gap 3 (2-11) mmol/L BUN 12 (6-24) mg/dL Creatinine 0.98 H (0.51-0.95) mg/dL Est GFR ( Amer) 71.2 (>60) Est GFR (Non-Af Amer) 55.3 (>60) BUN/Creatinine Ratio 12.2 (8-20) Glucose 68 L (70-100) mg/dL Lactic Acid (0.5-2.0) mmol/L Calcium 9.3 (8.6-10.3) mg/dL Total Bilirubin 0.40 (0.2-1.0) mg/dL AST 25 (13-39) U/L ALT 18 (7-52) U/L Alkaline Phosphatase 110 H (34-104) U/L Troponin I 0.01 (<0.04) ng/mL C-Reactive Protein 3.90 (< 5.00) mg/L B-Natriuretic Peptide 221 H ( - 100) pg/mL Total Protein 7.1 (6.4-8.9) g/dL Albumin 3.3 (3.2-5.2) g/dL Globulin 3.8 (2-4) g/dL Albumin/Globulin Ratio 0.9 L (1-3) 03/09/17 03/09/17 Range/Units 18:33 18:33 WBC 6.6 (3.5-10.8) 10^3/ul RBC 3.96 L (4.0-5.4) 10^6/ul Hgb 9.6 L (12.0-16.0) g/dl Hct 31 L (35-47) % MCV 78 L (80-97) fL MCH 24 L (27-31) pg MCHC 31 (31-36) g/dl RDW 16 H (10.5-15) % Plt Count 160 (150-450) 10^3/ul MPV 10 (7.4-10.4) um3 Neut % (Auto) 69.6 (38-83) % Lymph % (Auto) 15.8 L (25-47) % Tyler % (Auto) 7.6 (1-9) % Eos % (Auto) 5.9 (0-6) % Baso % (Auto) 1.1 (0-2) % Absolute Neuts (auto) 4.6 (1.5-7.7) 10^3/ul Absolute Lymphs (auto) 1.0 (1.0-4.8) 10^3/ul Absolute Monos (auto) 0.5 (0-0.8) 10^3/ul Absolute Eos (auto) 0.4 (0-0.6) 10^3/ul Absolute Basos (auto) 0.1 (0-0.2) 10^3/ul Absolute Nucleated RBC 0.01 10^3/ul Nucleated RBC % 0.2 INR (Anticoag Therapy) (0.89-1.11) D-Dimer, Quantitative (Less Than 230) ng/mL Sodium (133-145) mmol/L Potassium (3.5-5.0) mmol/L Chloride (101-111) mmol/L Carbon Dioxide (22-32) mmol/L Anion Gap (2-11) mmol/L BUN (6-24) mg/dL Creatinine (0.51-0.95) mg/dL Est GFR ( Amer) (>60) Est GFR (Non-Af Amer) (>60) BUN/Creatinine Ratio (8-20) Glucose (70-100) mg/dL Lactic Acid 1.0 (0.5-2.0) mmol/L Calcium (8.6-10.3) mg/dL Total Bilirubin (0.2-1.0) mg/dL AST (13-39) U/L ALT (7-52) U/L Alkaline Phosphatase (34-104) U/L Troponin I (<0.04) ng/mL C-Reactive Protein (< 5.00) mg/L B-Natriuretic Peptide ( - 100) pg/mL Total Protein (6.4-8.9) g/dL Albumin (3.2-5.2) g/dL Globulin (2-4) g/dL Albumin/Globulin Ratio (1-3) Result Diagrams: 03/09/17 18:33 03/09/17 18:33 Lab Statement: Any lab studies that have been ordered have been reviewed, and results considered in the medical decision making process. - Radiology CXR Xray Interpretation: Positive (See Comments) - moderate vascular congestion. ED physician has reviewed this report and agrees. Radiology Interpretation Completed By: Radiologist - EKG 18:57 Cardiac Rate: NL - 69 BPM EKG Interpretation: NSR. Nonspecific anterolateral changes. Course/Dx - Course Course Of Treatment: Ms. Hansen presented with SOB. She looked like she was in failure clinically and was treated with lasix and this was born out by her W/ U. She was admitted to the hospitalists. - Diagnoses Provider Diagnoses: CHF (congestive heart failure) - Physician Notifications Discussed Care of Patient With: Dhiraj Figueroa Time Discussed With Above Provider: 19:35 Instructed by Provider To: Other - I consulted with Dr. Figueroa, who admits the patient at 19:35 - Critical Care Time Critical Care Time: 30-74 min Discharge - Discharge Plan Condition: Fair Disposition: ADMITTED TO [facility] Discharge Disposition Comment: by [place] The documentation as recorded by the cathrynibJeni graf Thomas accurately reflects the service I personally performed and the decisions made by me, Mynor Ambrosio MD.
[2017-03-09] MEDS ORDERED: Acetaminophen TAB* 325 MG PO PRN (22:09)
[2017-03-09] MEDS ORDERED: CMCS: Melatonin (NF) 3 MG TAB PO PRN (22:10)
[2017-03-09] MEDS ORDERED: Albuterol 2.5 MG/3 ML NEB.SOL* (0.083%) INH PRN (22:10)
[2017-03-09] MEDS ORDERED: Ondansetron INJ* 2 MG/ML VIAL IV PRN (22:12)
[2017-03-09] MEDS ORDERED: Iodixanol* (CONTRAST) 320 MG/ML 100 ML SDV IV ONE (22:23)
[2017-03-09 23:27] LABS: Hematocrit 31 % (35-47); Hemoglobin 9.7 g/dl (12.0-16.0); Mean Corpuscular HGB Conc 32 g/dl (31-36); Mean Corpuscular Hemoglobin 25 pg (27-31); Mean Corpuscular Volume 78 fL (80-97); Mean Platelet Volume 10 um3 (7.4-10.4); Red Blood Count 3.93 10^6/ul (4.0-5.4); Red Cell Distribution Width 16 % (10.5-15); White Blood Count 7.5 10^3/ul (3.5-10.8)
[2017-03-09 23:37] LABS: EGFR African American 63.6 (>60); EGFR Non-African American 49.5 (>60)
[2017-03-09 23:38] LABS: Troponin I 0.01 ng/mL (<0.04)
[2017-03-10] MEDS ORDERED: Heparin VIAL(*) 5000 UNITS/ML VIAL (FIVE THOUSAND) IV SCH (02:00)
[2017-03-10] MEDS: Heparin DRIP 25,000 UNITS(*) 25,000 UNITS/500 ML BAG IVPB SCH (02:36)
[2017-03-10 02:43] LABS: Hematocrit 30 % (35-47); Hemoglobin 9.4 g/dl (12.0-16.0); Mean Corpuscular HGB Conc 31 g/dl (31-36); Mean Corpuscular Hemoglobin 24 pg (27-31); Mean Corpuscular Volume 79 fL (80-97); Mean Platelet Volume 10 um3 (7.4-10.4); Red Blood Count 3.85 10^6/ul (4.0-5.4); Red Cell Distribution Width 16 % (10.5-15); White Blood Count 7.3 10^3/ul (3.5-10.8)
[2017-03-10 04:33] LABS: BUN/Creatinine Ratio 12.3 (8-20); Calcium 9.5 mg/dL (8.6-10.3); EGFR Non-African American 50.5 (>60); Potassium 3.5 mmol/L (3.5-5.0)
[2017-03-10 04:36] LABS: Troponin I 0.01 ng/mL (<0.04)
[2017-03-10] MEDS: Omeprazole CAP* 20 MG PO SCH (05:42)
[2017-03-10] MEDS ORDERED: Heparin VIAL(*) 5000 UNITS/ML VIAL (FIVE THOUSAND) SUBCUT SCH (06:00)
--- NOTE | 2017-03-10 07:34 | RAD ---
INDICATION: Sudden onset shortness of breath, right lower extremity edema, elevated d-dimer. COMPARISON: Comparison is made with a prior CT angiogram of the chest from September 13, 2016. Correlation is made with a prior CT of the abdomen from December 12, 2014. TECHNIQUE: A CT angiogram of the chest was performed with intravenous following intravenous injection of 85 ml of Visipaque 320 nonionic contrast. Contiguous axial sections were obtained from the lung apices through the lung bases. Images were reconstructed in the coronal and sagittal planes. FINDINGS: There is suboptimal opacification of the pulmonary arteries limiting the study. There is a small filling defect in a right upper lobe segmental artery branch possibly representing a small pulmonary embolus. No other intraluminal filling defects are seen. The heart is mildly enlarged. There is a trace pericardial effusion. The thoracic aorta is normal in caliber and demonstrates homogeneous contrast opacification. No significant enlarged mediastinal or hilar lymph nodes are seen. There are nodular densities associated with both adrenal glands which are partially visualized on this study which appear unchanged from the prior exams. There are scattered calcifications within the spleen consistent with old granulomatous disease. There are trace bilateral pleural effusions. There are mild dependent bilateral lower lobe infiltrates consistent with subsegmental atelectasis. No significant focal osseous abnormality is seen. IMPRESSION: 1. LIMITED STUDY. 2. POSSIBLE SMALL RIGHT UPPER LOBE PULMONARY EMBOLISM. 3. TRACE PERICARDIAL AND BILATERAL PLEURAL EFFUSIONS.
[2017-03-10] MEDS: Insulin LISPRO* 1 UNITS UNIT SUBCUT SCH ×4 (08:53→20:21)
--- NOTE | 2017-03-10 09:01 | RAD ---
INDICATION: Bilateral lower extremity swelling left greater than right. COMPARISON: Comparison is made with a prior study from March 15, 2011. TECHNIQUE: Multiple real-time, color flow and Doppler tracings of the left lower extremity were obtained. FINDINGS: The common femoral, femoral, profunda femoral and popliteal veins all demonstrate normal compressibility, augmentation with compression and phasic response with respiration. Examination of the calf is limited. One of the posterior tibial and peroneal veins are visualized and appear within normal limits. The more anterior posterior tibial and more posterior peroneal veins are not visualized on grayscale or color Doppler imaging. IMPRESSION: NONVISUALIZATION OF ONE OF THE POSTERIOR TIBIAL AND PERONEAL VEINS OF THE CALF SUGGESTIVE OF CHRONIC DVT LESS LIKELY ACUTE DEEP VENOUS THROMBOSIS.
[2017-03-10] MEDS ORDERED: Insulin GLARGINE(*) 1 UNITS UNIT SUBCUT ONE (09:43)
[2017-03-10] MEDS ORDERED: Potassium Chlor TAB* 20 MEQ TAB.ER PO ONE (09:44)
[2017-03-10] MEDS: Furosemide IV* 10 MG/ML 10 ML VIAL (100 MG) IV SCH ×2 (11:01→14:06)
[2017-03-10] MEDS ORDERED: Insulin GLARGINE(*) 1 UNITS UNIT SUBCUT SCH (18:00)
[2017-03-10] MEDS: Nystatin TOP POWDER* 15 GM BTL TOPICAL SCH (20:20)
[2017-03-10] MEDS: Ferrous Gluconate TAB* 324 MG TAB PO SCH (20:21)
[2017-03-10] MEDS: Potassium Chlor TAB* 20 MEQ TAB.ER PO SCH (20:21)
[2017-03-10] MEDS: Carvedilol TAB* 25 MG PO SCH (20:21)
--- NOTE | 2017-03-10 20:27 | PN ---
Subjective Date of Service: 03/10/17 Interval History: Ms. Hansen reports that she is feeling much better than on admission. At the time of my examination she denies chest pain, SOB, nausea, or abdominal pain. Objective Active Medications: Acetaminophen (Tylenol Tab*) 650 mg PO Q6H PRN Albuterol (Ventolin 2.5 Mg/3 Ml Neb.Rachel*) 2.5 mg INH Q2H PRN Carvedilol (Coreg Tab*) 25 mg PO BID SATHYA Duloxetine HCl (Cymbalta Cap*) 20 mg PO DAILY SATHYA Ferrous Gluconate (Fergon Tab*) 324 mg PO BID SATHYA Furosemide (Lasix Iv*) 40 mg IV 0800,1200 SATHYA Heparin Sodium (Porcine) (Heparin Vial(*)) 0 units IV .PER PROTOCOL SATHYA Heparin Sodium/Dextrose (Heparin Drip 25,000 Units(*)) 25,000 units in 500 mls @ 0 mls/hr IVPB .PER RATE SATHYA; Per Protocol Insulin Glargine (Lantus(*)) 60 units SUBCUT QPM SATHYA Insulin Glargine (Lantus(*)) 80 units SUBCUT QAM SATHYA Insulin Human Lispro (Humalog*) 0 units SUBCUT ACHS SATHYA Levothyroxine Sodium (Synthroid Tab*) 25 mcg PO DAILY@0600 SATHYA Melatonin (Melatonin (Nf)) 3 mg PO BEDTIME PRN; Protocol Nystatin (Nystatin Top Powder*) 1 applic TOPICAL BID SATHYA Omeprazole (Prilosec Cap*) 20 mg PO DAILY@0600 SATHYA Ondansetron HCl (Zofran Inj*) 4 mg IV Q6H PRN Potassium Chloride (Klor Con Er Tab*) 20 meq PO BID SATHYA Spironolactone (Aldactone Tab*) 25 mg PO DAILY SATHYA Terazosin HCl (Hytrin Cap*) 10 mg PO BEDTIME SATHYA Triamcinolone Acetonide (Triamcinolone 0.025% Oint *) 1 applic TOPICAL DAILY [facility] Vital Signs 03/09/17 03/09/17 03/10/17 20:44 21:27 00:00 Temperature 98.1 F 98.1 F Pulse Rate 73 73 Respiratory 24 24 Rate Blood Pressure 145/66 145/66 (mmHg) O2 Sat by Pulse 96 96 97 Oximetry 03/10/17 03/10/17 03/10/17 00:02 03:44 07:34 Temperature 98.4 F 98.4 F 98.5 F Pulse Rate 78 72 73 Respiratory 16 16 18 Rate Blood Pressure 143/54 137/60 154/67 (mmHg) O2 Sat by Pulse 97 98 96 Oximetry 03/10/17 03/10/17 03/10/17 08:00 09:12 09:14 Temperature Pulse Rate 73 Respiratory 18 18 Rate Blood Pressure (mmHg) O2 Sat by Pulse 96 96 Oximetry 03/10/17 18:08 Temperature Pulse Rate Respiratory Rate Blood Pressure (mmHg) O2 Sat by Pulse 96 Oximetry Oxygen Devices in Use Now: None Appearance: Female sitting up in bed in NAD Eyes: No Scleral Icterus Ears/Nose/Mouth/Throat: Mucous Membranes Moist Neck: NL Appearance and Movements; NL JVP, Trachea Midline Respiratory: Symmetrical Chest Expansion and Respiratory Effort, Clear to Auscultation Cardiovascular: NL Sounds; No Murmurs; No JVD Abdominal: NL Sounds; No Tenderness; No Distention Lymphatic: No Cervical Adenopathy Extremities: - - trace edema Skin: No Rash or Ulcers Neurological: Alert and Oriented x 3, NL Muscle Strength and Tone Nutrition: Taking PO's Result Diagrams: 03/10/17 02:15 03/10/17 04:03 Additional Lab and Data: Lab Results 03/09/17 03/09/17 03/09/17 Range/Units 18:33 18:33 18:33 WBC (3.5-10.8) 10^3/ul RBC (4.0-5.4) 10^6/ul Hgb (12.0-16.0) g/dl Hct (35-47) % MCV (80-97) fL MCH (27-31) pg MCHC (31-36) g/dl RDW (10.5-15) % Plt Count (150-450) 10^3/ul MPV (7.4-10.4) um3 Neut % (Auto) (38-83) % Lymph % (Auto) (25-47) % Morrison % (Auto) (1-9) % Eos % (Auto) (0-6) % Baso % (Auto) (0-2) % Absolute Neuts (auto) (1.5-7.7) 10^3/ul Absolute Lymphs (auto) (1.0-4.8) 10^3/ul Absolute Monos (auto) (0-0.8) 10^3/ul Absolute Eos (auto) (0-0.6) 10^3/ul Absolute Basos (auto) (0-0.2) 10^3/ul Absolute Nucleated RBC 10^3/ul Nucleated RBC % INR (Anticoag Therapy) 1.01 (0.89-1.11) D-Dimer, Quantitative 546 H (Less Than 230) ng/mL Sodium 139 (133-145) mmol/L Potassium 3.7 (3.5-5.0) mmol/L Chloride 104 (101-111) mmol/L Carbon Dioxide 32 (22-32) mmol/L Anion Gap 3 (2-11) mmol/L BUN 12 (6-24) mg/dL Creatinine 0.98 H (0.51-0.95) mg/dL Est GFR ( Amer) 71.2 (>60) Est GFR (Non-Af Amer) 55.3 (>60) BUN/Creatinine Ratio 12.2 (8-20) Glucose 68 L (70-100) mg/dL Lactic Acid (0.5-2.0) mmol/L Calcium 9.3 (8.6-10.3) mg/dL Total Bilirubin 0.40 (0.2-1.0) mg/dL AST 25 (13-39) U/L ALT 18 (7-52) U/L Alkaline Phosphatase 110 H (34-104) U/L Troponin I 0.01 (<0.04) ng/mL C-Reactive Protein 3.90 (< 5.00) mg/L B-Natriuretic Peptide 221 H ( - 100) pg/mL Total Protein 7.1 (6.4-8.9) g/dL Albumin 3.3 (3.2-5.2) g/dL Globulin 3.8 (2-4) g/dL Albumin/Globulin Ratio 0.9 L (1-3) 03/09/17 03/09/17 Range/Units 18:33 18:33 WBC 6.6 (3.5-10.8) 10^3/ul RBC 3.96 L (4.0-5.4) 10^6/ul Hgb 9.6 L (12.0-16.0) g/dl Hct 31 L (35-47) % MCV 78 L (80-97) fL MCH 24 L (27-31) pg MCHC 31 (31-36) g/dl RDW 16 H (10.5-15) % Plt Count 160 (150-450) 10^3/ul MPV 10 (7.4-10.4) um3 Neut % (Auto) 69.6 (38-83) % Lymph % (Auto) 15.8 L (25-47) % Morrison % (Auto) 7.6 (1-9) % Eos % (Auto) 5.9 (0-6) % Baso % (Auto) 1.1 (0-2) % Absolute Neuts (auto) 4.6 (1.5-7.7) 10^3/ul Absolute Lymphs (auto) 1.0 (1.0-4.8) 10^3/ul Absolute Monos (auto) 0.5 (0-0.8) 10^3/ul Absolute Eos (auto) 0.4 (0-0.6) 10^3/ul Absolute Basos (auto) 0.1 (0-0.2) 10^3/ul Absolute Nucleated RBC 0.01 10^3/ul Nucleated RBC % 0.2 INR (Anticoag Therapy) (0.89-1.11) D-Dimer, Quantitative (Less Than 230) ng/mL Sodium (133-145) mmol/L Potassium (3.5-5.0) mmol/L Chloride (101-111) mmol/L Carbon Dioxide (22-32) mmol/L Anion Gap (2-11) mmol/L BUN (6-24) mg/dL Creatinine (0.51-0.95) mg/dL Est GFR ( Amer) (>60) Est GFR (Non-Af Amer) (>60) BUN/Creatinine Ratio (8-20) Glucose (70-100) mg/dL Lactic Acid 1.0 (0.5-2.0) mmol/L Calcium (8.6-10.3) mg/dL Total Bilirubin (0.2-1.0) mg/dL AST (13-39) U/L ALT (7-52) U/L Alkaline Phosphatase (34-104) U/L Troponin I (<0.04) ng/mL C-Reactive Protein (< 5.00) mg/L B-Natriuretic Peptide ( - 100) pg/mL Total Protein (6.4-8.9) g/dL Albumin (3.2-5.2) g/dL Globulin (2-4) g/dL Albumin/Globulin Ratio (1-3) Assess/Plan/Problems-Billing Assessment: Ms. Hansen is a 76 yo female with a PMH of CHF, DM, CKD Stage 3 who was admitted on 03/09/17 with concern for PE vs possible CHF exacerbation. - Patient Problems (1) Pulmonary embolism Comment: SOB and chest pain are resolved this AM. CTA chest was poorly timed study but shows concern for small PE. Plan to repeat tomorrow. Continue heparin gtt for now. - US LE shows no clear evidence of DVT. (2) Chronic combined systolic and diastolic CHF (congestive heart failure) Comment: SOB and chest pain resolved this AM Continue IV lasix for now LVEF 40-45% on echo 10/2014 (3) Type 2 diabetes mellitus Comment: Much improved with HgbA1c of 7.5 on last check. Continue lantus with SSI coverage, hold metformin. (4) ONUR (obstructive sleep apnea) Comment: Non-compliant with CPAP in the past (5) COPD (chronic obstructive pulmonary disease) Comment: No acute evidence of acute exacerbation (6) Stage III chronic kidney disease Comment: Stable (7) DVT prophylaxis Comment: Heparin gtt (8) Full code status Status and Disposition: Inpatient with expected LOS > 2 days. Anticipate discharge to home when medically stable.
[2017-03-10] MEDS ORDERED: Terazosin CAP* 5 MG PO SCH (21:00)
[2017-03-11 01:17] LABS: Hematocrit 31 % (35-47); Hemoglobin 9.7 g/dl (12.0-16.0); Mean Corpuscular HGB Conc 31 g/dl (31-36); Mean Corpuscular Hemoglobin 24 pg (27-31); Mean Corpuscular Volume 78 fL (80-97); Mean Platelet Volume 10 um3 (7.4-10.4); Red Blood Count 3.98 10^6/ul (4.0-5.4); Red Cell Distribution Width 16 % (10.5-15); White Blood Count 7.2 10^3/ul (3.5-10.8)
[2017-03-11] MEDS: Heparin DRIP 25,000 UNITS(*) 25,000 UNITS/500 ML BAG IVPB SCH (02:22)
[2017-03-11] MEDS: Omeprazole CAP* 20 MG PO SCH (05:21)
[2017-03-11] MEDS ORDERED: Levothyroxine TAB* 25 MCG TAB PO SCH (06:00)
[2017-03-11] MEDS: Insulin LISPRO* 1 UNITS UNIT SUBCUT SCH ×2 (07:27→12:47)
[2017-03-11] MEDS ORDERED: Insulin GLARGINE(*) 1 UNITS UNIT SUBCUT SCH (09:00)
[2017-03-11] MEDS ORDERED: Triamcinolone 0.025% OINT * 15 GM TUBE TOPICAL SCH (09:00)
[2017-03-11] MEDS ORDERED: DULoxetine DR CAP* 20 MG CAP.DR PO SCH (09:00)
[2017-03-11] MEDS ORDERED: Spironolactone TAB* 25 MG PO SCH (09:00)
[2017-03-11] MEDS: Furosemide IV* 10 MG/ML 10 ML VIAL (100 MG) IV SCH ×2 (09:31→12:48)
[2017-03-11] MEDS: Ferrous Gluconate TAB* 324 MG TAB PO SCH (09:32)
[2017-03-11] MEDS: Carvedilol TAB* 25 MG PO SCH (09:33)
[2017-03-11] MEDS: Potassium Chlor TAB* 20 MEQ TAB.ER PO SCH (09:33)
[2017-03-11] MEDS: Nystatin TOP POWDER* 15 GM BTL TOPICAL SCH (09:36)
[2017-03-11] MEDS ORDERED: Iodixanol* (CONTRAST) 320 MG/ML 100 ML SDV IV ONE (14:29)
--- NOTE | 2017-03-11 15:10 | RAD ---
Indication: Follow-up for questionable pulmonary embolus. Contrast: Administered 88.2 ml of VISIPAQUE 320 mg/ml CTA of the chest was performed after IV contrast demonstration. Coronal and sagittal reconstructed images were obtained. Comparison is made with previous exam dated March 09, 2017. The pulmonary arterial tree is well opacified. There are no filling defects to suggest pulmonary embolus. The previously identified question of a filling defect in the right upper lobe is not identified on the current study. The segmental pulmonary artery in question appears to be opacified. There is no Mediastinal or hilar adenopathy is noted. The heart demonstrates enlargement without pericardial effusion. The trachea and major bronchi appear patent. No evidence of alveolar consolidation is noted. The visualized abdominal organs demonstrate nodular hyperplasia of both adrenal glands with suggestion of a left adrenal nodule measuring up to 2 cm. IMPRESSION: No evidence of pulmonary embolus is noted. Nodular hyperplasia of both adrenal glands. Left adrenal nodule is unchanged.
--- NOTE | 2017-03-11 15:39 | PN ---
Subjective Date of Service: 03/11/17 Objective Active Medications: Acetaminophen (Tylenol Tab*) 650 mg PO Q6H PRN Albuterol (Ventolin 2.5 Mg/3 Ml Neb.Rachel*) 2.5 mg INH Q2H PRN Carvedilol (Coreg Tab*) 25 mg PO BID SATHYA Duloxetine HCl (Cymbalta Cap*) [address] [facility] Ferrous Gluconate (Fergon Tab*) 324 mg PO BID SATHYA Furosemide (Lasix Iv*) 40 mg IV 0800,1200 [facility] Heparin Sodium (Porcine) (Heparin Vial(*)) 0 units IV .PER PROTOCOL SATHYA Heparin Sodium/Dextrose (Heparin Drip 25,000 Units(*)) 25,000 units in 500 mls @ 0 mls/hr IVPB .PER RATE SATHYA; Per Protocol Insulin Glargine (Lantus(*)) 60 units SUBCUT QPM SATHYA Insulin Glargine (Lantus(*)) [address] [facility] Insulin Human Lispro (Humalog*) [address] [facility] Levothyroxine Sodium (Synthroid Tab*) 25 mcg PO DAILY@0600 [facility] Melatonin (Melatonin (Nf)) 3 mg PO BEDTIME PRN; Protocol Nystatin (Nystatin Top Powder*) 1 applic TOPICAL BID SATHYA Omeprazole (Prilosec Cap*) 20 mg PO DAILY@0600 [facility] Ondansetron HCl (Zofran Inj*) 4 mg IV Q6H PRN Potassium Chloride (Klor Con Er Tab*) [address] [facility] Spironolactone (Aldactone Tab*) [address] [facility] Terazosin HCl (Hytrin Cap*) 10 mg PO BEDTIME SATHYA Triamcinolone Acetonide (Triamcinolone 0.025% Oint *) [address] [facility] Vital Signs 03/10/17 03/10/17 03/10/17 15:50 18:08 19:25 Temperature 98.1 F 98.7 F Pulse Rate 74 74 Respiratory 12 16 Rate Blood Pressure 170/72 153/60 (mmHg) O2 Sat by Pulse 97 96 95 Oximetry 03/10/17 03/10/17 03/10/17 20:00 21:47 23:35 Temperature 98.3 F Pulse Rate 69 67 Respiratory 19 16 Rate Blood Pressure 118/48 112/44 (mmHg) O2 Sat by Pulse 96 95 Oximetry 03/11/17 03/11/17 03/11/17 00:00 03:13 07:28 Temperature 97.5 F Pulse Rate 70 Respiratory 16 16 Rate Blood Pressure 116/55 (mmHg) O2 Sat by Pulse 95 94 Oximetry 03/11/17 03/11/17 03/11/17 07:47 09:33 11:19 Temperature 97.8 F 98.0 F Pulse Rate 67 71 64 Respiratory 16 16 16 Rate Blood Pressure 134/67 108/44 (mmHg) O2 Sat by Pulse 100 97 96 Oximetry Oxygen Devices in Use Now: None Appearance: Female sitting up in chair in NAD Eyes: No Scleral Icterus Ears/Nose/Mouth/Throat: Mucous Membranes Moist Neck: - - Mild swelling under jaw near ear, mildly tender to touch, denies sore throat or difficulty swallowing Respiratory: Symmetrical Chest Expansion and Respiratory Effort, Clear to Auscultation Cardiovascular: NL Sounds; No Murmurs; No JVD, No Edema Abdominal: NL Sounds; No Tenderness; No Distention Lymphatic: No Cervical Adenopathy Extremities: No Edema Skin: No Rash or Ulcers Neurological: Alert and Oriented x 3, NL Muscle Strength and Tone Nutrition: Taking PO's Result Diagrams: 03/11/17 01:10 03/10/17 04:03 Additional Lab and Data: Lab Results 03/09/17 03/09/17 03/09/17 Range/Units 18:33 18:33 18:33 WBC (3.5-10.8) 10^3/ul RBC (4.0-5.4) 10^6/ul Hgb (12.0-16.0) g/dl Hct (35-47) % MCV (80-97) fL MCH (27-31) pg MCHC (31-36) g/dl RDW (10.5-15) % Plt Count (150-450) 10^3/ul MPV (7.4-10.4) um3 Neut % (Auto) (38-83) % Lymph % (Auto) (25-47) % [place] % (Auto) (1-9) % Eos % (Auto) (0-6) % Baso % (Auto) (0-2) % Absolute Neuts (auto) (1.5-7.7) 10^3/ul Absolute Lymphs (auto) (1.0-4.8) 10^3/ul Absolute Monos (auto) (0-0.8) 10^3/ul Absolute Eos (auto) (0-0.6) 10^3/ul Absolute Basos (auto) (0-0.2) 10^3/ul Absolute Nucleated RBC 10^3/ul Nucleated RBC % INR (Anticoag Therapy) 1.01 (0.89-1.11) D-Dimer, Quantitative 546 H (Less Than 230) ng/mL Sodium 139 (133-145) mmol/L Potassium 3.7 (3.5-5.0) mmol/L Chloride 104 (101-111) mmol/L Carbon Dioxide 32 (22-32) mmol/L Anion Gap 3 (2-11) mmol/L BUN 12 (6-24) mg/dL Creatinine 0.98 H (0.51-0.95) mg/dL Est GFR ( Amer) 71.2 (>60) Est GFR (Non-Af Amer) 55.3 (>60) BUN/Creatinine Ratio 12.2 (8-20) Glucose 68 L (70-100) mg/dL Lactic Acid (0.5-2.0) mmol/L Calcium 9.3 (8.6-10.3) mg/dL Total Bilirubin 0.40 (0.2-1.0) mg/dL AST 25 (13-39) U/L ALT 18 (7-52) U/L Alkaline Phosphatase 110 H (34-104) U/L Troponin I 0.01 (<0.04) ng/mL C-Reactive Protein 3.90 (< 5.00) mg/L B-Natriuretic Peptide 221 H ( - 100) pg/mL Total Protein 7.1 (6.4-8.9) g/dL Albumin 3.3 (3.2-5.2) g/dL Globulin 3.8 (2-4) g/dL Albumin/Globulin Ratio 0.9 L (1-3) 03/09/17 03/09/17 Range/Units 18:33 18:33 WBC 6.6 (3.5-10.8) 10^3/ul RBC 3.96 L (4.0-5.4) 10^6/ul Hgb 9.6 L (12.0-16.0) g/dl Hct 31 L (35-47) % MCV 78 L (80-97) fL MCH 24 L (27-31) pg MCHC 31 (31-36) g/dl RDW 16 H (10.5-15) % Plt Count 160 (150-450) 10^3/ul MPV 10 (7.4-10.4) um3 Neut % (Auto) 69.6 (38-83) % Lymph % (Auto) 15.8 L (25-47) % [place] % (Auto) 7.6 (1-9) % Eos % (Auto) 5.9 (0-6) % Baso % (Auto) 1.1 (0-2) % Absolute Neuts (auto) 4.6 (1.5-7.7) 10^3/ul Absolute Lymphs (auto) 1.0 (1.0-4.8) 10^3/ul Absolute Monos (auto) 0.5 (0-0.8) 10^3/ul Absolute Eos (auto) 0.4 (0-0.6) 10^3/ul Absolute Basos (auto) 0.1 (0-0.2) 10^3/ul Absolute Nucleated RBC 0.01 10^3/ul Nucleated RBC % 0.2 INR (Anticoag Therapy) (0.89-1.11) D-Dimer, Quantitative (Less Than 230) ng/mL Sodium (133-145) mmol/L Potassium (3.5-5.0) mmol/L Chloride (101-111) mmol/L Carbon Dioxide (22-32) mmol/L Anion Gap (2-11) mmol/L BUN (6-24) mg/dL Creatinine (0.51-0.95) mg/dL Est GFR ( Amer) (>60) Est GFR (Non-Af Amer) (>60) BUN/Creatinine Ratio (8-20) Glucose (70-100) mg/dL Lactic Acid 1.0 (0.5-2.0) mmol/L Calcium (8.6-10.3) mg/dL Total Bilirubin (0.2-1.0) mg/dL AST (13-39) U/L ALT (7-52) U/L Alkaline Phosphatase (34-104) U/L Troponin I (<0.04) ng/mL C-Reactive Protein (< 5.00) mg/L B-Natriuretic Peptide ( - 100) pg/mL Total Protein (6.4-8.9) g/dL Albumin (3.2-5.2) g/dL Globulin (2-4) g/dL Albumin/Globulin Ratio (1-3) Assess/Plan/Problems-Billing Assessment: Ms. Hansen is a 76 yo female with a PMH of CHF, DM, CKD Stage 3 who was admitted on 03/09/17 with concern for PE vs possible CHF exacerbation. - Patient Problems (1) Pulmonary embolism Comment: - Repeat CTA chest negative for PE. - Stop hep gtt. (2) Chronic combined systolic and diastolic CHF (congestive heart failure) Comment: SOB and chest pain resolved this AM Resume home diuretics, patient strongly cautioned about avoiding salt. States she had been eating canned soup frequently. LVEF 40-45% on echo 10/2014 (3) Parotitis Comment: - Swelling noted to left submandibular area near ear. - Could be parotitis or swollen lymph node. Patient afebrile, no sore throat or difficulty swallowing. - Recommend warm compresses and silalogues for now. If worsens, patient was instructed to see her PCP or return to the ED. (4) Type 2 diabetes mellitus Comment: Much improved with HgbA1c of 7.5 on last check. Continue lantus and resume metformin. (5) ONUR (obstructive sleep apnea) Comment: Non-compliant with CPAP in the past (6) COPD (chronic obstructive pulmonary disease) Comment: No acute evidence of acute exacerbation (7) Stage III chronic kidney disease Comment: Stable (8) DVT prophylaxis Comment: Heparin gtt (9) Full code status Status and Disposition: Inpatient with expected LOS > 2 days. Anticipate discharge to home when medically stable.
[2017-03-11 15:43] VITALS: BP 121/66
--- NOTE | 2017-03-12 06:54 | DS ---
CC: Dr. Moyer * [facility] DISCHARGE SUMMARY: DATE OF ADMISSION: 03/09/17 DATE OF DISCHARGE: 03/11/17 PRIMARY CARE PHYSICIAN: Dr. Moyer. ATTENDING PHYSICIAN: Dr. Star Romero * (dictation provided by Lorenza Cornell NP). PRIMARY DIAGNOSES: 1. Acute on chronic combined systolic and diastolic congestive heart failure exacerbation. 2. Questionable pulmonary embolism, ruled out on repeat CT scan chest. SECONDARY DIAGNOSES: 1. Type 2 diabetes, insulin dependent. 2. Cardiomyopathy. 3. Chronic kidney disease, stage 3. 4. Chronic obstructive pulmonary disease. 5. Hypertension. 6. Hyperlipidemia. 7. Anemia. 8. Obstructive sleep apnea. 9. Spinal stenosis. MEDICATIONS AT THE TIME OF DISCHARGE: 1. Ferrous gluconate 325 mg p.o. b.i.d. 2. Duloxetine 20 mg p.o. daily. 3. Carvedilol 25 mg p.o. b.i.d. 4. Bumetanide 2 mg p.o. b.i.d. 5. Triamcinolone cream 0.1% one application topically daily. 6. Detrol LA 4 mg p.o. daily. 7. Terazosin 10 mg p.o. at bedtime. 8. Spironolactone 25 mg p.o. daily. 9. Simvastatin 20 mg p.o. daily. 10. Potassium chloride 20 mEq p.o. b.i.d. 11. Nystatin powder topically b.i.d. 12. Metolazone 2.5 mg twice a week or as directed. 13. Losartan 50 mg p.o. b.i.d. 14. Levothyroxine 25 mcg p.o. daily. 15. Insulin Lantus 80 units in the a.m. and 60 units in the p.m. 16. Metformin 1500 mg in the p.m. and 1000 mg in the a.m. 17. Glyburide 10 mg p.o. b.i.d. HOSPITAL COURSE: Ms. Hansen is a 76-year-old female with a past medical history of CHF, who presented to the hospital on 03/09/17 with concern for chest tightness and shortness of breath. Please see the dictated H and P from for complete details. In brief, the patient had reported 3 weeks of increasing lower extremity edema and poor dietary compliance with low sodium diet. On the date of admission, she had a sudden onset of shortness of breath with diffuse chest tightness and therefore presented to the emergency room. In the emergency room, she had a troponin which was 0.01. She had a chest x-ray, which showed moderate vascular congestion. She went on for a chest/thorax CTA, which showed concern for a small pulmonary embolism. She had good O2 saturation on room air. Vitals were otherwise stable. Her labs were otherwise unremarkable. Ms. Hansen was admitted to the hospital. She had 2 repeat troponins, which were also negative. She was maintained on a heparin drip while we awaited diet clearance so that she could go on for another CTA chest, which occurred today. She was also diuresed with IV Lasix. With the IV Lasix treatment, she has had great resolution of her shortness of breath. She has had no further chest tightness. Her lower extremities are now back to baseline with no significant swelling. She is ambulating in the room without difficulty. She is not requiring oxygen. She went on for the repeat CTA of the chest today and that showed that there was in fact no pulmonary embolism. Ms. Hansen is medically stable for discharge to home. Again, the PE was ruled out. I suspect that her symptoms are related to CHF as her troponins were all negative x3. She is feeling much better now after diuresis. DISPOSITION: To home. DIET: Low salt, consistent carbohydrate. ACTIVITY: As tolerated. FOLLOWUP PLANS: Please follow up with Dr. Moyer per routine in the next 5 to 7 days of this hospitalization or when appointment is available. TIME SPENT: Approximately 60 minutes were spent in the discharge of this patient, more than half the time spent with the patient at the bedside reviewing the events leading up to this hospitalization, performing the physical examination, and reviewing the plan of care. LORENZA CORNELL NP [id number]/[facility] #: [id number] WENDY
== END 2017-03-11 17:00 | disposition home or self-care (01) | DRG 291 ==
LOC: ED 17:49 → MEDTELE 19:35
PROVIDERS: ADMIT Hospitalist; ATTEND Internal Medicine
DX: I13.0 Hypertensive heart and chronic kidney disease with heart failure and stage 1 through stage 4 chronic kidney disease, or unspecified chronic kidney disease (principal); I50.43 Acute on chronic combined systolic (congestive) and diastolic (congestive) heart failure; E11.22 Type 2 diabetes mellitus with diabetic chronic kidney disease; J44.9 Chronic obstructive pulmonary disease, unspecified; J98.11 Atelectasis; N18.3 Chronic kidney disease, stage 3 (moderate); E78.5 Hyperlipidemia, unspecified; D64.9 Anemia, unspecified; G47.33 Obstructive sleep apnea (adult) (pediatric); K11.20 Sialoadenitis, unspecified; M48.00 Spinal stenosis, site unspecified; Z79.84 Long term (current) use of oral hypoglycemic drugs; Z79.4 Long term (current) use of insulin; Z79.899 Other long term (current) drug therapy; Z88.8 Allergy status to other drugs, medicaments and biological substances; Z87.891 Personal history of nicotine dependence; Z83.3 Family history of diabetes mellitus
CPT/HCPCS: 36415; 71010; 71275; 80048; 80053; 82565; 83605; 83880; 84484; 84520; 85025; 85379; 85610; 85730; 86140; 93005; 94760; A9270-GY; J1644; J1940; J2405; Q9967

== ENCOUNTER 2017-05-07 17:39 | Inpatient (IN) | payer MEDICARE, OTHER ==
[2017-05-07] MEDS ORDERED: Furosemide IV* 10 MG/ML VIAL (40 MG) IV ONE (17:46)
[2017-05-07] MEDS ORDERED: nitroGLYCERIN DRIP* 25,000 MCG/250 ML BTL IV ONE (17:47)
[2017-05-07] MEDS ORDERED: Nitroglycerin TAB 0.4 MG* 0.4 MG TAB SL ONE (17:47)
--- NOTE | 2017-05-07 18:11 | RAD ---
HISTORY: Shortness of breath COMPARISONS: March 09, 2017 VIEWS: 1: frontal portable view of the chest at 5:54 PM FINDINGS: LINES AND TUBES: None. CARDIOMEDIASTINAL SILHOUETTE: The cardiomediastinal silhouette is normal for portable technique. PLEURA: The costophrenic angles are sharp. No pleural abnormalities are noted. LUNG PARENCHYMA: There is confluent alveolar opacification of the lower lung metz bilaterally. There is a diffuse reticular pattern of opacification. ABDOMEN: The upper abdomen is clear. There is no subphrenic gas. BONES AND SOFT TISSUES: No bone or soft tissue abnormalities are noted. IMPRESSION: PULMONARY INTERSTITIAL EDEMA WITH BIBASILAR CONSOLIDATION SUGGESTIVE OF SUPERIMPOSED PNEUMONIC CONSOLIDATION VERSUS PULMONARY ALVEOLAR EDEMA
[2017-05-07 18:13] LABS: PCO2 Arterial 88 mmHg (35-45)
[2017-05-07 18:21] LABS: ALT 27 U/L (7-52); Albumin 3.7 g/dL (3.2-5.2); Alkaline Phosphatase 129 U/L (34-104); BUN/Creatinine Ratio 9.9 (8-20); Blood Urea Nitrogen 9 mg/dL (6-24); C Reactive Protein 3.19 mg/L (< 5.00); CO2 Carbon Dioxide 31 mmol/L (22-32); Chloride 105 mmol/L (101-111); Creatine Kinase 220 U/L (10-223); EGFR African American 77.5 (>60); EGFR Non-African American 60.3 (>60); Globulin 4.9 g/dL (2-4); Glucose 92 mg/dL (70-100); Lipase 76 U/L (11.0-82.0); Magnesium 1.9 mg/dL (1.9-2.7); Sodium 138 mmol/L (133-145); Total Protein 8.6 g/dL (6.4-8.9)
[2017-05-07 18:22] LABS: Hematocrit 32 % (35-47); Hemoglobin 9.4 g/dl (12.0-16.0); Mean Corpuscular HGB Conc 30 g/dl (31-36); Mean Corpuscular Hemoglobin 23 pg (27-31); Mean Corpuscular Volume 77 fL (80-97); Mean Platelet Volume 10 um3 (7.4-10.4); Red Blood Count 4.13 10^6/ul (4.0-5.4); Red Cell Distribution Width 18 % (10.5-15); Troponin I 0.02 ng/mL (<0.04); White Blood Count 11.9 10^3/ul (3.5-10.8)
[2017-05-07 18:25] LABS: Comments Flag Yes
[2017-05-07 18:35] LABS: Anion Gap 2 mmol/L (2-11)
[2017-05-07] MEDS ORDERED: cefTRIAXone(*) 1 GM in NS 0.9% 50 ML* 50 ML IVPB ONE (18:52)
[2017-05-07] MEDS ORDERED: Azithromycin IV(*) 500 MG in NS 0.9% 250 ML* 250 ML IVPB ONE (18:52)
[2017-05-07 18:54] LABS: Calcium 8.6 mg/dL (8.6-10.3)
[2017-05-07] MEDS ORDERED: Albuterol/Ipratropium NEB.SOL* Albuterol 2.5 MG/Ipratropium 0.5 MG 3 ML INH ONE (19:07)
[2017-05-07 19:12] LABS: Urine Bacteria Absent (Absent); Urine Bilirubin Negative (Negative); Urine Glucose Negative (Negative); Urine Nitrite Negative (Negative)
[2017-05-07 19:26] LABS: EPAP 6; IPAP 14
[2017-05-07 19:31] LABS: PCO2 Arterial 52 mmHg (35-45)
--- NOTE | 2017-05-07 20:44 | HP ---
H&P (Free Text) History and Physical: PCP: Geovanny Moyer MD Date/Time: 05/07/2017 1930 CC: SOB HPI: Mrs aHnsen is a 76F HX chronic sys/diastolic HF, DM2, CKD 3, & COPD presenting with onset around 1700 this evening of SOB upon awakening from a nap which started around 1500. She did have some associated mild non-radiating substernal chest pressure without N/V, palpitations, light-headedness, or other issues. Prior to taking the nap, she was at her baseline. She called EMS and was brought to [facility] for evaluation. Upon arrival, she was reportedly lethargic and found to be in acute on chronic mixed diastolic & systolic HF based on CXR, treated with nitroGTT, 80mg furosemide IV, & BiPap. Initial ABG was notable for acute hypercapneic failure w/ pH 7.15 & pCO2 of 88. Repeat ABG was normalized for her with pH 7.35 & pCO2 52. Her mentation had normalized per family present and she was AA&O, able to converse in complete sentences. Her Bipap was weaned off to 3L oxymask at 1999 and nitroGTT weaned off from 1999 to 2029. Third ABG at 2099 to assess for recurrent decompensation yielded a pH of 7.37, pCO2 52. However, she has only produced ~100cc of urine in her boggs and so will receive an additional 40mg IV furosemide tonight and will be monitored on telemetry with Q4H neurochecks and vitals. Given appearance of flash pulmonary edema, concern for cardiac status is present, trend troponin. If stable overnight, consideration for outpatient stress testing next week should be held. Her d-dimer was elevated in the 400s, but was in the 500s previously when CTA of the chest was negative in February of this year. Therefore,no further work up is indicated. PMedHx DM2 cardiomyopathy EF 40-45% CHF CKD stg 2 COPD HTN HLD microcytic anemia, stable ONUR not on CPAP spinal stenosis Ambulatory Orders Nursing to reconcile. Bumetanide TAB* [Bumex 2 MG TAB*] 2 mg PO BID 07/16/13 Losartan TAB* [Cozaar TAB*] 50 mg PO BID 07/16/13 Terazosin CAP* [Hytrin CAP 5 MG*] 10 mg PO BEDTIME 07/16/13 metFORMIN* [Glucophage 500 MG TAB *] 1,000 tab PO QAM 07/16/13 metFORMIN* [Glucophage 500 MG TAB *] 1,500 mg PO QPM 03/09/16 Carvedilol TAB* [Coreg TAB*] 25 mg PO BID 09/13/[address] CAP* [Cymbalta CAP*] 20 mg PO DAILY 09/13/16 Ferrous Gluconate TAB* [Fergon TAB*] 325 mg PO BID 09/13/16 Insulin GLARGINE(*) [Lantus(*)] 80 units SUBCUT QAM 09/13/16 Levothyroxine TAB* [Synthroid 25 MCG TAB*] 25 mcg PO DAILY 09/13/16 Metolazone TAB* [Zaroxolyn TAB*] 2.5 mg PO .TWICE A WEEK 09/13/16 Potassium Chlor TAB* [Potassium Chlor TAB 20 MEQ*] 20 meq PO BID 09/13/16 Simvastatin TAB(NF) [Zocor 20 MG (NF)] 20 mg PO DAILY 09/13/16 Spironolactone TAB* [Aldactone TAB 25 MG*] 25 mg PO DAILY 09/13/16 Tolterodine LA (NF) [Detrol LA (NF)] 4 mg PO DAILY 09/13/16 glyBURIDE TAB* [Diabeta TAB*] 10 mg PO BID 09/13/16 Insulin GLARGINE(*) [Lantus(*)] 60 units SUBCUT QPM 10/11/16 Nystatin TOP POWDER* 1 applic TOPICAL BID 10/11/16 Triamcinolone 0.1% CREAM (NF) [Kenalog 0.1% Cream (NF)] 1 applic TOPICAL DAILY 10/11/16 Allergies Captopril Allergy (Severe, Verified 05/07/17 18:14) Hives PSurgHx OU cataract extractions hernia repair hysterectomy rotator cuff repair carpal tunnel release ORIF L foot SocHx: former smoker, no alcohol or recreational drugs; lives with her ; full code status FamHx: Mother & Father: DM2 ROS: as above, otherwise reviewed and all were negative vitals: Vital Signs Temp 36.1 C 05/07/17 17:41 Pulse 66 05/07/17 20:30 Resp 21 05/07/17 20:30 BP 130/57 05/07/17 20:30 Pulse Ox 95 05/07/17 20:30 Intake & Output 05/06/17 05/07/17 05/07/17 23:59 11:59 23:59 Intake Total 100 Balance 100 Weight 111.13 kg Intake: IV Fluids 100 Constitutional: NAD, normally developed, obese black female HEENM: atraumatic; sclera/conjunctiva: non-icteric/mildly injected; hearing: clinically intact; oropharynx: clear, mucosa moist Neck: soft tissue: non-tender; thyroid: normal Pulmonary: mildly diminished B without wheeze/rhonchi/crackle, fair to good aeration, no accessory muscle use CV: RR/RR, normal S1S2, no carotid bruit, no jugular venous distention on my exam, 2+ B DP/PT, trace BLE edema Abdominal: soft, non-distended, non-tender, no rebound/guarding/rigidity, normoactive bowel sounds, no hepatosplenomegaly or masses, no costovertebral angle tenderness Musculoskeletal: general: grossly intact; gait: stable w/ cane; mild/mod B calf tenderness to palpation Integumental: BLE w/ mild/mod chronic venous stasis changes/discoloration Psychiatric orientation: AA&O to PPS affect: calm mood: cooperative eye contact: fair to good content: reliable responses: timely insight: fair to good Testing: Lab Results 05/07/17 05/07/17 05/07/17 Range/Units 17:48 17:48 17:48 WBC (3.5-10.8) 10^3/ul RBC (4.0-5.4) 10^6/ul Hgb (12.0-16.0) g/dl Hct (35-47) % MCV (80-97) fL MCH (27-31) pg MCHC (31-36) g/dl RDW (10.5-15) % Plt Count (150-450) 10^3/ul MPV (7.4-10.4) um3 Neut % (Auto) (38-83) % Lymph % (Auto) (25-47) % Burt % (Auto) (1-9) % Eos % (Auto) (0-6) % Baso % (Auto) (0-2) % Absolute Neuts (auto) (1.5-7.7) 10^3/ul Absolute Lymphs (auto) (1.0-4.8) 10^3/ul Absolute Monos (auto) (0-0.8) 10^3/ul Absolute Eos (auto) (0-0.6) 10^3/ul Absolute Basos (auto) (0-0.2) 10^3/ul Absolute Nucleated RBC 10^3/ul Nucleated RBC % INR (Anticoag Therapy) 1.03 (0.89-1.11) APTT 26.5 (26.0-36.3) seconds D-Dimer, Quantitative 479 H (Less Than 230) ng/mL Patient Temperature ABG pH (7.35-7.45) ABG pH (Temp Correct) ABG pCO2 (35-45) mmHg ABG pCO2 (Temp Corrct ABG pO2 (80-100) mmHg ABG pO2 (Temp Correct ABG HCO3 (19-31) mmol/L ABG O2 Saturation (95-98) % ABG Base Excess (-2.0-2.0) EPAP IPAP Sodium 138 (133-145) mmol/L Potassium TNP Chloride 105 (101-111) mmol/L Carbon Dioxide 31 (22-32) mmol/L Anion Gap 2 (2-11) mmol/L BUN 9 (6-24) mg/dL Creatinine 0.91 (0.51-0.95) mg/dL Est GFR ( Amer) 77.5 (>60) Est GFR (Non-Af Amer) 60.3 (>60) BUN/Creatinine Ratio 9.9 (8-20) Glucose 92 (70-100) mg/dL Lactic Acid (0.5-2.0) mmol/L Calcium 8.6 (8.6-10.3) mg/dL Magnesium 1.9 (1.9-2.7) mg/dL Total Bilirubin 0.70 (0.2-1.0) mg/dL AST TNP ALT 27 (7-52) U/L Alkaline Phosphatase 129 H (34-104) U/L Total Creatine Kinase 220 (10-223) U/L CK-MB (CK-2) 4.1 (0.6-6.3) ng/mL Troponin I 0.02 (<0.04) ng/mL C-Reactive Protein 3.19 (< 5.00) mg/L B-Natriuretic Peptide 282 H ( - 100) pg/mL Total Protein 8.6 (6.4-8.9) g/dL Albumin 3.7 (3.2-5.2) g/dL Globulin 4.9 H (2-4) g/dL Albumin/Globulin Ratio 0.8 L (1-3) Lipase 76 (11.0-82.0) U/L TSH 8.10 H (0.34-5.60) mcIU/mL Urine Color Urine Appearance Urine pH (5-9) Ur Specific [place] (1.010-1.030) Urine Protein (Negative) Urine Ketones (Negative) Urine Blood (Negative) Urine Nitrate (Negative) Urine Bilirubin (Negative) Urine Urobilinogen (Negative) Ur Leukocyte Esterase (Negative) Urine WBC (Auto) (Absent) Urine RBC (Auto) (Absent) Ur Squamous Epith Cells (Absent) Urine Bacteria (Absent) Urine Glucose (Negative) Influenza A (Rapid) (Negative) Influenza B (Rapid) (Negative) 05/07/17 05/07/17 05/07/17 Range/Units 17:48 17:48 18:00 WBC 11.9 H (3.5-10.8) 10^3/ul RBC 4.13 (4.0-5.4) 10^6/ul Hgb 9.4 L (12.0-16.0) g/dl Hct 32 L (35-47) % MCV 77 L (80-97) fL MCH 23 L (27-31) pg MCHC 30 L (31-36) g/dl RDW 18 H (10.5-15) % Plt Count 248 (150-450) 10^3/ul MPV 10 (7.4-10.4) um3 Neut % (Auto) 55.3 (38-83) % Lymph % (Auto) 30.5 (25-47) % Burt % (Auto) 8.8 (1-9) % Eos % (Auto) 4.3 (0-6) % Baso % (Auto) 1.1 (0-2) % Absolute Neuts (auto) 6.6 (1.5-7.7) 10^3/ul Absolute Lymphs (auto) 3.7 (1.0-4.8) 10^3/ul Absolute Monos (auto) 1.1 H (0-0.8) 10^3/ul Absolute Eos (auto) 0.5 (0-0.6) 10^3/ul Absolute Basos (auto) 0.1 (0-0.2) 10^3/ul Absolute Nucleated RBC 0.02 10^3/ul Nucleated RBC % 0.2 INR (Anticoag Therapy) (0.89-1.11) APTT (26.0-36.3) seconds D-Dimer, Quantitative (Less Than 230) ng/mL Patient Temperature ABG pH 7.15 L* (7.35-7.45) ABG pH (Temp Correct) ABG pCO2 88 H* (35-45) mmHg ABG pCO2 (Temp Corrct ABG pO2 271 H (80-100) mmHg ABG pO2 (Temp Correct ABG HCO3 25.3 (19-31) mmol/L ABG O2 Saturation 100.5 H (95-98) % ABG Base Excess 0.4 (-2.0-2.0) EPAP IPAP Sodium (133-145) mmol/L Potassium Chloride (101-111) mmol/L Carbon Dioxide (22-32) mmol/L Anion Gap (2-11) mmol/L BUN (6-24) mg/dL Creatinine (0.51-0.95) mg/dL Est GFR ( Amer) (>60) Est GFR (Non-Af Amer) (>60) BUN/Creatinine Ratio (8-20) Glucose (70-100) mg/dL Lactic Acid 2.1 H* (0.5-2.0) mmol/L Calcium (8.6-10.3) mg/dL Magnesium (1.9-2.7) mg/dL Total Bilirubin (0.2-1.0) mg/dL AST ALT (7-52) U/L Alkaline Phosphatase (34-104) U/L Total Creatine Kinase (10-223) U/L CK-MB (CK-2) (0.6-6.3) ng/mL Troponin I (<0.04) ng/mL C-Reactive Protein (< 5.00) mg/L B-Natriuretic Peptide ( - 100) pg/mL Total Protein (6.4-8.9) g/dL Albumin (3.2-5.2) g/dL Globulin (2-4) g/dL Albumin/Globulin Ratio (1-3) Lipase (11.0-82.0) U/L TSH (0.34-5.60) mcIU/mL Urine Color Urine Appearance Urine pH (5-9) Ur Specific [place] (1.010-1.030) Urine Protein (Negative) Urine Ketones (Negative) Urine Blood (Negative) Urine Nitrate (Negative) Urine Bilirubin (Negative) Urine Urobilinogen (Negative) Ur Leukocyte Esterase (Negative) Urine WBC (Auto) (Absent) Urine RBC (Auto) (Absent) Ur Squamous Epith Cells (Absent) Urine Bacteria (Absent) Urine Glucose (Negative) Influenza A (Rapid) (Negative) Influenza B (Rapid) (Negative) 05/07/17 05/07/17 05/07/17 Range/Units 19:00 19:19 21:08 WBC (3.5-10.8) 10^3/ul RBC (4.0-5.4) 10^6/ul Hgb (12.0-16.0) g/dl Hct (35-47) % MCV (80-97) fL MCH (27-31) pg MCHC (31-36) g/dl RDW (10.5-15) % Plt Count (150-450) 10^3/ul MPV (7.4-10.4) um3 Neut % (Auto) (38-83) % Lymph % (Auto) (25-47) % Burt % (Auto) (1-9) % Eos % (Auto) (0-6) % Baso % (Auto) (0-2) % Absolute Neuts (auto) (1.5-7.7) 10^3/ul Absolute Lymphs (auto) (1.0-4.8) 10^3/ul Absolute Monos (auto) (0-0.8) 10^3/ul Absolute Eos (auto) (0-0.6) 10^3/ul Absolute Basos (auto) (0-0.2) 10^3/ul Absolute Nucleated RBC 10^3/ul Nucleated RBC % INR (Anticoag Therapy) (0.89-1.11) APTT (26.0-36.3) seconds D-Dimer, Quantitative (Less Than 230) ng/mL Patient Temperature Not Reportable ABG pH 7.35 7.37 (7.35-7.45) ABG pH (Temp Correct) Not Reportable ABG pCO2 52 H 52 H (35-45) mmHg ABG pCO2 (Temp Corrct Not Reportable ABG pO2 208 H 67 L (80-100) mmHg ABG pO2 (Temp Correct Not Reportable ABG HCO3 27.0 28.2 (19-31) mmol/L ABG O2 Saturation 100.1 H 97.0 (95-98) % ABG Base Excess 2.6 H 4.2 H (-2.0-2.0) EPAP 6 IPAP 14 Sodium (133-145) mmol/L Potassium Chloride (101-111) mmol/L Carbon Dioxide (22-32) mmol/L Anion Gap (2-11) mmol/L BUN (6-24) mg/dL Creatinine (0.51-0.95) mg/dL Est GFR ( Amer) (>60) Est GFR (Non-Af Amer) (>60) BUN/Creatinine Ratio (8-20) Glucose (70-100) mg/dL Lactic Acid (0.5-2.0) mmol/L Calcium (8.6-10.3) mg/dL Magnesium (1.9-2.7) mg/dL Total Bilirubin (0.2-1.0) mg/dL AST ALT (7-52) U/L Alkaline Phosphatase (34-104) U/L Total Creatine Kinase (10-223) U/L CK-MB (CK-2) (0.6-6.3) ng/mL Troponin I (<0.04) ng/mL C-Reactive Protein (< 5.00) mg/L B-Natriuretic Peptide ( - 100) pg/mL Total Protein (6.4-8.9) g/dL Albumin (3.2-5.2) g/dL Globulin (2-4) g/dL Albumin/Globulin Ratio (1-3) Lipase (11.0-82.0) U/L TSH (0.34-5.60) mcIU/mL Urine Color Yellow Urine Appearance Clear Urine pH 6.0 (5-9) Ur Specific [place] 1.016 (1.010-1.030) Urine Protein 3+(>=500 mg/dl) H (Negative) Urine Ketones Negative (Negative) Urine Blood Negative (Negative) Urine Nitrate Negative (Negative) Urine Bilirubin Negative (Negative) Urine Urobilinogen Negative (Negative) Ur Leukocyte Esterase Negative (Negative) Urine WBC (Auto) Trace(0-5/hpf) (Absent) Urine RBC (Auto) 2+(6-10/hpf) H (Absent) Ur Squamous Epith Cells Present H (Absent) Urine Bacteria Absent (Absent) Urine Glucose Negative (Negative) Influenza A (Rapid) (Negative) Influenza B (Rapid) (Negative) 05/07/17 Range/Units 21:39 WBC (3.5-10.8) 10^3/ul RBC (4.0-5.4) 10^6/ul Hgb (12.0-16.0) g/dl Hct (35-47) % MCV (80-97) fL MCH (27-31) pg MCHC (31-36) g/dl RDW (10.5-15) % Plt Count (150-450) 10^3/ul MPV (7.4-10.4) um3 Neut % (Auto) (38-83) % Lymph % (Auto) (25-47) % Burt % (Auto) (1-9) % Eos % (Auto) (0-6) % Baso % (Auto) (0-2) % Absolute Neuts (auto) (1.5-7.7) 10^3/ul Absolute Lymphs (auto) (1.0-4.8) 10^3/ul Absolute Monos (auto) (0-0.8) 10^3/ul Absolute Eos (auto) (0-0.6) 10^3/ul Absolute Basos (auto) (0-0.2) 10^3/ul Absolute Nucleated RBC 10^3/ul Nucleated RBC % INR (Anticoag Therapy) (0.89-1.11) APTT (26.0-36.3) seconds D-Dimer, Quantitative (Less Than 230) ng/mL Patient Temperature ABG pH (7.35-7.45) ABG pH (Temp Correct) ABG pCO2 (35-45) mmHg ABG pCO2 (Temp Corrct ABG pO2 (80-100) mmHg ABG pO2 (Temp Correct ABG HCO3 (19-31) mmol/L ABG O2 Saturation (95-98) % ABG Base Excess (-2.0-2.0) EPAP IPAP Sodium (133-145) mmol/L Potassium Chloride (101-111) mmol/L Carbon Dioxide (22-32) mmol/L Anion Gap (2-11) mmol/L BUN (6-24) mg/dL Creatinine (0.51-0.95) mg/dL Est GFR ( Amer) (>60) Est GFR (Non-Af Amer) (>60) BUN/Creatinine Ratio (8-20) Glucose (70-100) mg/dL Lactic Acid (0.5-2.0) mmol/L Calcium (8.6-10.3) mg/dL Magnesium (1.9-2.7) mg/dL Total Bilirubin (0.2-1.0) mg/dL AST ALT (7-52) U/L Alkaline Phosphatase (34-104) U/L Total Creatine Kinase (10-223) U/L CK-MB (CK-2) (0.6-6.3) ng/mL Troponin I (<0.04) ng/mL C-Reactive Protein (< 5.00) mg/L B-Natriuretic Peptide ( - 100) pg/mL Total Protein (6.4-8.9) g/dL Albumin (3.2-5.2) g/dL Globulin (2-4) g/dL Albumin/Globulin Ratio (1-3) Lipase (11.0-82.0) U/L TSH (0.34-5.60) mcIU/mL Urine Color Urine Appearance Urine pH (5-9) Ur Specific [place] (1.010-1.030) Urine Protein (Negative) Urine Ketones (Negative) Urine Blood (Negative) Urine Nitrate (Negative) Urine Bilirubin (Negative) Urine Urobilinogen (Negative) Ur Leukocyte Esterase (Negative) Urine WBC (Auto) (Absent) Urine RBC (Auto) (Absent) Ur Squamous Epith Cells (Absent) Urine Bacteria (Absent) Urine Glucose (Negative) Influenza A (Rapid) Negative (Negative) Influenza B (Rapid) Negative (Negative) ECG, personally reviewed: NSR rate 89, no ischemia CXR, personally reviewed: IMPRESSION: PULMONARY INTERSTITIAL EDEMA WITH BIBASILAR CONSOLIDATION SUGGESTIVE OF SUPERIMPOSED PNEUMONIC CONSOLIDATION VERSUS PULMONARY ALVEOLAR EDEMA ECHO (11/22/2016): Conclusions: Moderate concentric left ventricular hypertrophy is observed. There is mild to moderately decreased left ventricular systolic function. The estimated ejection fraction is 40-45%. A patent foramen ovale is not demonstrated by color Doppler. There is no evidence of aortic regurgitation. There is a trace of mitral regurgitation. There is trace tricuspid regurgitation. There is no significant pericardial effusion. There are no significant changes when compared to the previous study done on 11/19/14 Impression: 76F presenting with acute SOB with findings consistent with acute on chronic mixed systolic & diastolic HF, possible but doubt bibasilar pneumonia DIAGNOSIS & PLAN Primary acute on chronic mixed systolic & diastolic HF ? flash pulmonary edema : HX cardiomyopathy EF 40-45% w/ diastolic dysfunction : telemetry : trend troponin : furosemide diuresis : strict I&Os : daily weights : low sodium diet : supplemental oxygen : consider outpatient vs inpatient cardiac stress test next week pending overnight course : Q4H neurochecks & vitals overnight : supportive care possible but doubt bibasilar pneumonia : empiric azithromycin & ceftriaxone for now : blood & sputum CXs : check urine S pneumo & Legionella antigens : check rapid influenza : recheck pCXR in AM Secondary DM2 : A1c 8.1 03/2017 : insulin carb ratio diet : ACHS glucometry : corrective insulin : review meds once reconciled CKD stg 2 : stable, periodic monitoring COPD : review meds once reconciled HTN : review meds once reconciled HLD : review meds once reconciled microcytic anemia, stable : outpatient follow up w/ PCP : periodic monitoring while inpatient ONUR : not on CPAP Admission Rational: observation for CHF DVTp: heparin SQ & SCDs Code Status: full HCP:
[2017-05-07] MEDS ORDERED: CMCS: Melatonin (NF) 3 MG TAB PO PRN (21:22)
[2017-05-07] MEDS ORDERED: Albuterol 2.5 MG/3 ML NEB.SOL* (0.083%) INH PRN (21:22)
[2017-05-07] MEDS ORDERED: Ondansetron INJ* 2 MG/ML VIAL IV PRN (21:22)
[2017-05-07 21:28] LABS: PCO2 Arterial 52 mmHg (35-45)
[2017-05-07] MEDS ORDERED: Furosemide IV* 10 MG/ML 10 ML VIAL (100 MG) IV ONE (21:42)
--- NOTE | 2017-05-08 00:14 | ED ---
Edi Benitez Alfonso, scribed for Lj Banerjee MD on 05/07/17 at 1836 . Respiratory - HPI Summary HPI Summary: LEVEL 5 CAVAET DUE TO RESPIRATORY DISTRESS. This patient is a 76 year old F BIBA to [facility] with a chief complaint of SOB since approximately 1700. EMS reports pt more alert upon arrival. Symptoms alleviated by ASA and NTG. Patient is diaphoretic. Family reports cough. Family denies recent illness. - History of Current Complaint Chief Complaint: EDShortnessOfBreath Stated Complaint: CHEST PAIN Time Seen by Provider: 05/07/17 17:44 Hx Obtained From: Family/Element Burner, EMS Hx From Patient Unobtainable Due To: Other - RESPIRATORY DISTRESS. Onset/Duration: Sudden Onset, Lasting Minutes, Still Present Timing: Constant Current Severity: Severe Pain Intensity: 0 Alleviating Factor(s): Other - ASA NTG Associated Signs and Symptoms: Diaphoresis - Allergy/Home Medications Allergies/Adverse Reactions: Allergies Allergy/AdvReac Type Severity Reaction Status Date / Time Captopril Allergy Severe Hives Verified 05/07/17 18:14 PMH/Surg Hx/FS Hx/Imm Hx Endocrine/Hematology History: Reports: Hx Diabetes, Hx Anemia - chronic iron infusions Cardiovascular History: Reports: Hx Congestive Heart Failure, Hx Hypertension, Other Cardiovascular Problems/Disorders - cardiomyopathy Denies: Hx Pacemaker/ICD Respiratory History: Reports: Hx Chronic Obstructive Pulmonary Disease (COPD), Hx Sleep Apnea GI History: Reports: Hx Gastrointestinal Bleed, Hx Hiatal Hernia - s/p repair, Other GI Disorders - HELICOBACTER INFECTION History: Denies: Hx Renal Disease Musculoskeletal History: Reports: Hx Arthritis, Hx Back Problems, Other Musculoskeletal History - spinal stenosis Sensory History: Reports: Hx Cataracts - surgery with implants bilat eyes 96, Hx Contacts or Glasses - readers only Denies: Hx Hearing Aid Opthamlomology History: Reports: Hx Cataracts - surgery with implants bilat eyes 96, Hx Contacts or Glasses - readers only Neurological History: Reports: Other Neuro Impairments/Disorders - vertigo Psychiatric History: Reports: Other Psychiatric Issues/Disorders - PT REPORTS "STRESS" AND SAYS HER MD GAVE HER A MED FOR IT, UNSURE WHAT Denies: Hx Panic Disorder - Surgical History Surgery Procedure, Year, and Place: HERNIA. HYSTERECTOMY. CATERACTS. CARPAL TUNNEL. CYSTS REMOVED FROM BILATERAL ARMPITS. RTC RT. LT FOOT SURGERY - Immunization History Date of Tetanus Vaccine: UTD Date of Influenza Vaccine: 02/2016 Infectious Disease History: No Infectious Disease History: Denies: Traveled Outside the [place] in Last 30 Days - Family History Known Family History: Positive: Other - Yes - CHF (Mother) - Social History Alcohol Use: None Substance Use Type: Reports: None Hx Tobacco Use: Yes Smoking Status (MU): Former Smoker Have You Smoked in the Last Year: No Review of Systems Positive: Skin Diaphoresis. Negative: Fever Positive: Shortness Of Breath, Cough All Other Systems Reviewed And Are Negative: No Physical Exam - Summary Physical Exam Summary: General: ill-appearing, no pain distress Skin: warm, color reflects adequate perfusion, dry Head: normal Eyes: EOMI, GENNY ENT: normal Neck: supple, nontender Respiratory: severe respiratory distress, bilateral rhonchi, pedal edema Cardiovascular: RRR Abdomen: soft, nontender Bowel: present Musculoskeletal: normal, strength/ROM intact Neurological: normal, sensory/motor intact, A&O x3 Psychological: non-verbal Triage Information Reviewed: Yes Vital Signs On Initial Exam: Initial Vitals Temp Pulse Resp BP Pulse Ox 97.0 F 51 26 187/95 72 05/07/17 17:41 05/07/17 17:41 05/07/17 17:41 05/07/17 17:41 05/07/17 17:41 Vital Signs Reviewed: Yes Completion Of Physical Exam Limited Due To: Level 5 Diagnostics - Vital Signs Vital Signs Temp Pulse Resp BP Pulse Ox 05/07/17 18:16 85 26 100 05/07/17 18:09 100 05/07/17 18:03 92 182/85 98 05/07/17 17:41 97.0 F 51 26 187/95 72 - Laboratory Lab Results: Lab Results 05/07/17 05/07/17 05/07/17 Range/Units 17:48 17:48 17:48 WBC (3.5-10.8) 10^3/ul RBC (4.0-5.4) 10^6/ul Hgb (12.0-16.0) g/dl Hct (35-47) % MCV (80-97) fL MCH (27-31) pg MCHC (31-36) g/dl RDW (10.5-15) % Plt Count (150-450) 10^3/ul MPV (7.4-10.4) um3 Neut % (Auto) (38-83) % Lymph % (Auto) (25-47) % Weakley % (Auto) (1-9) % Eos % (Auto) (0-6) % Baso % (Auto) (0-2) % Absolute Neuts (auto) (1.5-7.7) 10^3/ul Absolute Lymphs (auto) (1.0-4.8) 10^3/ul Absolute Monos (auto) (0-0.8) 10^3/ul Absolute Eos (auto) (0-0.6) 10^3/ul Absolute Basos (auto) (0-0.2) 10^3/ul Absolute Nucleated RBC 10^3/ul Nucleated RBC % INR (Anticoag Therapy) 1.03 (0.89-1.11) APTT 26.5 (26.0-36.3) seconds D-Dimer, Quantitative 479 H (Less Than 230) ng/mL ABG pH (7.35-7.45) ABG pCO2 (35-45) mmHg ABG pO2 (80-100) mmHg ABG HCO3 (19-31) mmol/L ABG O2 Saturation (95-98) % ABG Base Excess (-2.0-2.0) Sodium 138 (133-145) mmol/L Potassium Pending Chloride 105 (101-111) mmol/L Carbon Dioxide 31 (22-32) mmol/L Anion Gap Pending BUN 9 (6-24) mg/dL Creatinine 0.91 (0.51-0.95) mg/dL Est GFR ( Amer) 77.5 (>60) Est GFR (Non-Af Amer) 60.3 (>60) BUN/Creatinine Ratio 9.9 (8-20) Glucose 92 (70-100) mg/dL Lactic Acid (0.5-2.0) mmol/L Calcium Pending Magnesium 1.9 (1.9-2.7) mg/dL Total Bilirubin 0.70 (0.2-1.0) mg/dL AST Pending ALT 27 (7-52) U/L Alkaline Phosphatase 129 H (34-104) U/L Total Creatine Kinase 220 (10-223) U/L CK-MB (CK-2) 4.1 (0.6-6.3) ng/mL Troponin I 0.02 (<0.04) ng/mL C-Reactive Protein 3.19 (< 5.00) mg/L B-Natriuretic Peptide 282 H ( - 100) pg/mL Total Protein 8.6 (6.4-8.9) g/dL Albumin 3.7 (3.2-5.2) g/dL Globulin 4.9 H (2-4) g/dL Albumin/Globulin Ratio 0.8 L (1-3) Lipase 76 (11.0-82.0) U/L TSH Pending 05/07/17 05/07/17 05/07/17 Range/Units 17:48 17:48 18:00 WBC 11.9 H (3.5-10.8) 10^3/ul RBC 4.13 (4.0-5.4) 10^6/ul Hgb 9.4 L (12.0-16.0) g/dl Hct 32 L (35-47) % MCV 77 L (80-97) fL MCH 23 L (27-31) pg MCHC 30 L (31-36) g/dl RDW 18 H (10.5-15) % Plt Count 248 (150-450) 10^3/ul MPV 10 (7.4-10.4) um3 Neut % (Auto) 55.3 (38-83) % Lymph % (Auto) 30.5 (25-47) % Weakley % (Auto) 8.8 (1-9) % Eos % (Auto) 4.3 (0-6) % Baso % (Auto) 1.1 (0-2) % Absolute Neuts (auto) 6.6 (1.5-7.7) 10^3/ul Absolute Lymphs (auto) 3.7 (1.0-4.8) 10^3/ul Absolute Monos (auto) 1.1 H (0-0.8) 10^3/ul Absolute Eos (auto) 0.5 (0-0.6) 10^3/ul Absolute Basos (auto) 0.1 (0-0.2) 10^3/ul Absolute Nucleated RBC 0.02 10^3/ul Nucleated RBC % 0.2 INR (Anticoag Therapy) (0.89-1.11) APTT (26.0-36.3) seconds D-Dimer, Quantitative (Less Than 230) ng/mL ABG pH 7.15 L* (7.35-7.45) ABG pCO2 88 H* (35-45) mmHg ABG pO2 271 H (80-100) mmHg ABG HCO3 25.3 (19-31) mmol/L ABG O2 Saturation 100.5 H (95-98) % ABG Base Excess 0.4 (-2.0-2.0) Sodium (133-145) mmol/L Potassium Chloride (101-111) mmol/L Carbon Dioxide (22-32) mmol/L Anion Gap BUN (6-24) mg/dL Creatinine (0.51-0.95) mg/dL Est GFR ( Amer) (>60) Est GFR (Non-Af Amer) (>60) BUN/Creatinine Ratio (8-20) Glucose (70-100) mg/dL Lactic Acid 2.1 H* (0.5-2.0) mmol/L Calcium Magnesium (1.9-2.7) mg/dL Total Bilirubin (0.2-1.0) mg/dL AST ALT (7-52) U/L Alkaline Phosphatase (34-104) U/L Total Creatine Kinase (10-223) U/L CK-MB (CK-2) (0.6-6.3) ng/mL Troponin I (<0.04) ng/mL C-Reactive Protein (< 5.00) mg/L B-Natriuretic Peptide ( - 100) pg/mL Total Protein (6.4-8.9) g/dL Albumin (3.2-5.2) g/dL Globulin (2-4) g/dL Albumin/Globulin Ratio (1-3) Lipase (11.0-82.0) U/L TSH Result Diagrams: 05/07/17 17:48 05/07/17 17:48 Lab Statement: Any lab studies that have been ordered have been reviewed, and results considered in the medical decision making process. - Radiology CXR Radiology Interpretation Completed By: Radiologist - PULMONARY INTERSTITIAL EDEMA WITH BIBASILAR CONSOLIDATION SUGGESTIVE OF SUPERIMPOSED PNEUMONIC CONSOLIDATION VERSUS PULMONARY ALVEOLAR EDEMA. ED physician has reviewed this radiology report and agrees. - EKG 1741 Cardiac Rate: NL EKG Rhythm: Sinus Rhythm - [address] Segment: Non-Specific Ectopy: None EKG Interpretation: normal sinus 89 bpm, boarderline ST elevation with concave up ST segment. Disposition - Course Course Of Treatment: TREATED FOR FLASH PULMONARY EDEMA AND POSSIBLE PNEUMONIA IN ED. IMPROVED AFTER 1 HOUR ON BIPAP; NO NEED FOR INTUBATION. ADMIT HOSPITALIST. - Diagnoses Provider Diagnoses: Flash pulmonary edema, Pneumonia - Critical Care Time Critical Care Time: 30-74 min Discharge - Discharge Plan Condition: Stable Disposition: ADMITTED TO [facility] documentation as recorded by the Edi puri Alfonso accurately reflects the service I personally performed and the decisions made by , Lj Banerjee MD.
[2017-05-08 01:38] LABS: Troponin I 0.04 ng/mL (<0.04)
[2017-05-08] MEDS: Levothyroxine TAB* 25 MCG TAB PO SCH (05:04)
[2017-05-08] MEDS: Heparin VIAL(*) 5000 UNITS/ML VIAL (FIVE THOUSAND) SUBCUT SCH ×3 (05:04→22:04)
[2017-05-08 05:50] LABS: Add Diff/Slide Review? Slide Review Added; Comments Flag Yes; Hematocrit 26 % (35-47); Hemoglobin 7.8 g/dl (12.0-16.0); Mean Corpuscular HGB Conc 30 g/dl (31-36); Mean Corpuscular Hemoglobin 23 pg (27-31); Mean Corpuscular Volume 75 fL (80-97); Mean Platelet Volume 10 um3 (7.4-10.4); Red Blood Count 3.42 10^6/ul (4.0-5.4); Red Cell Distribution Width 18 % (10.5-15); White Blood Count 7.9 10^3/ul (3.5-10.8)
[2017-05-08 05:54] LABS: BUN/Creatinine Ratio 12.7 (8-20); Calcium 8.3 mg/dL (8.6-10.3); EGFR African American 67.9 (>60); EGFR Non-African American 52.8 (>60); Potassium 3.5 mmol/L (3.5-5.0)
[2017-05-08 05:55] LABS: Troponin I 0.03 ng/mL (<0.04)
[2017-05-08 06:19] LABS: Hypochromasia 2+; Microcytosis 1+; Polychromasia 1+
[2017-05-08 06:20] LABS: Add Path Review? YES; Schistocytes 1+; Target Cells 1+
[2017-05-08] MEDS ORDERED: Furosemide IV* 10 MG/ML VIAL (40 MG) IV ONE (07:20)
[2017-05-08] MEDS ORDERED: Insulin LISPRO* 1 UNITS UNIT SUBCUT SCH (07:30)
[2017-05-08] MEDS: Furosemide IV* 10 MG/ML 10 ML VIAL (100 MG) IV SCH ×3 (07:34→21:05)
[2017-05-08 07:38] LABS: FIO2 3
--- NOTE | 2017-05-08 07:39 | RAD ---
INDICATION: CHF. Short of breath. COMPARISON: May 07, 2017 TECHNIQUE: An AP portable view obtained at 0600 hours is submitted. FINDINGS: Bones/Soft Tissues: There are no acute bony findings. Cardiomediastinal: The heart is enlarged. Central pulmonary vessels and interstitium are prominent. These findings are consistent with vascular congestion with interval improvement. Lungs: Clearing of alveolar pulmonary edema. Pleura: No significant effusion. Other: None IMPRESSION: MODERATE VASCULAR CONGESTION. THERE IS INTERVAL IMPROVEMENT.
[2017-05-08 07:44] LABS: PCO2 Arterial 48 mmHg (35-45)
[2017-05-08] MEDS ORDERED: glyBURIDE TAB* 5 MG PO SCH (08:00)
[2017-05-08] MEDS: Insulin LISPRO* 1 UNITS UNIT SUBCUT SCH ×7 (08:13→22:04)
[2017-05-08] MEDS: Albuterol/Ipratropium NEB.SOL* Albuterol 2.5 MG/Ipratropium 0.5 MG 3 ML INH SCH ×4 (08:15→19:10)
[2017-05-08] MEDS: Spironolactone TAB* 25 MG PO SCH (08:29)
[2017-05-08] MEDS: Omeprazole CAP* 20 MG PO SCH (08:30)
[2017-05-08] MEDS: Losartan TAB* 25 MG PO SCH ×2 (08:30→21:05)
[2017-05-08] MEDS: Atorvastatin* 10 MG TAB PO SCH (08:30)
[2017-05-08] MEDS: Oxybutynin XL TAB* 5 MG PO SCH (08:31)
[2017-05-08] MEDS: methylPREDNISolone SOD 40 MG* 1 ML VIAL IV SCH ×2 (08:31→18:25)
[2017-05-08] MEDS: Nystatin TOP POWDER* 15 GM BTL TOPICAL SCH ×2 (08:36→21:06)
[2017-05-08] MEDS ORDERED: predniSONE TAB* 20 MG PO SCH (09:00)
[2017-05-08] MEDS ORDERED: DULoxetine DR CAP* 20 MG CAP.DR PO SCH (09:00)
[2017-05-08] MEDS ORDERED: Insulin GLARGINE(*) 1 UNITS UNIT SUBCUT SCH ×2 (09:00→21:00)
[2017-05-08] MEDS: Carvedilol TAB* 25 MG PO SCH ×2 (09:24→18:25)
[2017-05-08] MEDS: Docusate CAP* 100 MG PO SCH ×2 (09:24→21:05)
[2017-05-08] MEDS: Ferrous Gluconate TAB* 324 MG TAB PO SCH ×2 (09:24→21:04)
[2017-05-08] MEDS ORDERED: hydrALAZINE IV* 20 MG/ML VIAL IV SLOW PU PRN (13:41)
[2017-05-08 16:48] LABS: Hematocrit 27 % (35-47)
[2017-05-08 16:52] LABS: Hemoglobin 8.4 g/dl (12.0-16.0)
[2017-05-08 16:54] LABS: Comments Flag Yes
--- NOTE | 2017-05-08 17:50 | PN ---
Subjective Date of Service: 05/08/17 Interval History: Patient had AMS early in the morning with sedation and increased SOB, Shaking and anxiety. Patient was given 40mg lasix IV and was transferred to the ICU. Patient was found to have a FSBG of 64 and was given juice. FS came up to 84, ABG was performed and was hypercapnic and hypoxic, but generally improved from yesterday. Patient's mental status dramatically improved and she was able to be transferred back to telemetry. Patient states that she go 80u Lantus as is normal yesterday morning and then ate nothing but toast all day. Patient was wheezing significantly when examined, was started on Duonebs scheduled and IV solumedrol for COPD exacerbation and repeat exam was much improved. Patient has put out copious amounts of urine today. Patient denies any F/C, N/V, Abdominal Pain, Constipation, Diarrhea, dizziness, or other pain. Family History: Unchanged from Admission Social History: Unchanged from Admission Past Medical History: Unchanged from Admission Objective Active Medications: Acetaminophen (Tylenol Tab*) 650 mg PO Q6H PRN PRN Reason: FEVER/PAIN Albuterol (Ventolin 2.5 Mg/3 Ml Neb.Rachel*) 2.5 mg INH Q2H PRN PRN Reason: SOB/WHEEZING Albuterol/Ipratropium (Duoneb (Albuterol 2.5 Mg/Ipratropium 0.5 Mg)) 1 neb INH Q4H [facility] Last Admin: 05/08/17 16:13 Dose: 1 neb Atorvastatin Calcium (Lipitor*) 10 mg PO DAILY [facility] Last Admin: 05/08/17 08:30 Dose: 10 mg Carvedilol (Coreg Tab*) 25 mg PO BID WITH MEALS [facility] Last Admin: 05/08/17 09:24 Dose: 25 mg Docusate Sodium (Colace Cap*) 200 mg PO BID [facility] Last Admin: 05/08/17 09:24 Dose: Not Given Duloxetine HCl (Cymbalta Cap*) 20 mg PO DAILY [facility] Last Admin: 05/08/17 08:30 Dose: 20 mg Ferrous Gluconate (Fergon Tab*) 325 mg PO BID [facility] Last Admin: 05/08/17 09:24 Dose: 325 mg Furosemide (Lasix Iv*) 20 mg IV BID [facility] Heparin Sodium (Porcine) (Heparin Vial(*)) 5,000 units SUBCUT Q8HR [facility] Last Admin: 05/08/17 14:06 Dose: 5,000 units Hydralazine HCl (Apresoline Iv*) 5 mg IV SLOW PU Q6H PRN PRN Reason: SYSTOLIC BP GREATER THAN: Last Admin: 05/08/17 14:06 Dose: 5 mg Ceftriaxone Sodium 1,000 mg/ (Sodium Chloride) 50 mls @ 200 mls/hr IVPB Q24H [facility] Azithromycin 500 mg/ Sodium (Chloride) 250 mls @ 250 mls/hr IVPB Q24H [facility] Insulin Glargine (Lantus(*)) 50 units SUBCUT 0900,2100 [facility] Stop: 05/09/17 20:00 Last Admin: 05/08/17 09:25 Dose: 50 units Insulin Human Lispro (Humalog*) 0 units SUBCUT ACHS [facility] PRN Reason: Protocol Last Admin: 05/08/17 12:16 Dose: 6 units Insulin Human Lispro (Humalog*) 0 units SUBCUT AC [facility] PRN Reason: Protocol Last Admin: 05/08/17 14:05 Dose: 6 units Levothyroxine Sodium (Synthroid Tab*) 25 mcg PO DAILY@0600 [facility] Last Admin: 05/08/17 05:04 Dose: 25 mcg Losartan Potassium (Cozaar Tab*) 50 mg PO BID [facility] Last Admin: 05/08/17 08:30 Dose: 50 mg Melatonin (Melatonin (Nf)) 3 mg PO BEDTIME PRN; Protocol PRN Reason: Sleep Methylprednisolone Sodium Succinate (Solu-Medrol 40 Mg) 40 mg IV Q8H [facility] Last Admin: 05/08/17 08:31 Dose: 40 mg Metolazone (Zaroxolyn Tab*) 2.5 mg PO MoTh@0900 [facility] Nystatin (Nystatin Top Powder*) 1 applic TOPICAL BID [facility] Last Admin: 05/08/17 08:36 Dose: 1 applic Omeprazole (Prilosec Cap*) 20 mg PO DAILY@0730 [facility] Last Admin: 05/08/17 08:30 Dose: 20 mg Ondansetron HCl (Zofran Inj*) 4 mg IV Q6H PRN PRN Reason: NAUSEA Oxybutynin Chloride (Ditropan Xl Tab*) 10 mg PO DAILY [facility] PRN Reason: Protocol Last Admin: 11/12/17 08:31 Dose: 10 mg Spironolactone (Aldactone Tab*) 25 mg PO DAILY [facility] Last Admin: 05/08/17 08:29 Dose: 25 mg Terazosin HCl (Hytrin Cap*) 10 mg PO BEDTIME [facility] Vital Signs 05/07/17 05/07/17 05/07/17 21:30 21:40 21:50 Temperature Pulse Rate 66 67 68 Respiratory 19 18 17 Rate Blood Pressure 112/55 109/58 99/53 (mmHg) O2 Sat by Pulse 96 97 96 Oximetry 05/07/17 05/07/17 05/07/17 22:00 22:10 22:20 Temperature Pulse Rate 70 68 68 Respiratory 19 18 18 Rate Blood Pressure 119/64 120/60 125/63 (mmHg) O2 Sat by Pulse 96 97 97 Oximetry 05/07/17 05/07/17 05/07/17 22:30 22:40 22:50 Temperature Pulse Rate 66 66 66 Respiratory 18 17 16 Rate Blood Pressure 118/55 115/55 119/56 (mmHg) O2 Sat by Pulse 98 98 99 Oximetry 05/07/17 05/07/17 05/07/17 23:00 23:09 23:10 Temperature Pulse Rate 73 66 68 Respiratory 15 13 14 Rate Blood Pressure 137/63 129/63 (mmHg) O2 Sat by Pulse 99 99 98 Oximetry 05/07/17 05/07/17 05/07/17 23:11 23:20 23:30 Temperature 97.7 F Pulse Rate 70 73 Respiratory 14 16 Rate Blood Pressure 127/58 153/69 (mmHg) O2 Sat by Pulse 99 99 Oximetry 05/07/17 05/08/17 05/08/17 23:57 00:35 03:26 Temperature 98.2 F 97.5 F Pulse Rate 72 77 Respiratory 22 16 Rate Blood Pressure 142/66 138/53 (mmHg) O2 Sat by Pulse 100 96 100 Oximetry 05/08/17 05/08/17 05/08/17 07:10 08:05 08:07 Temperature 97.6 F 98 F Pulse Rate 79 80 Respiratory 20 23 24 Rate Blood Pressure 149/81 176/89 (mmHg) O2 Sat by Pulse 97 98 Oximetry 05/08/17 05/08/17 05/08/17 08:10 08:16 08:30 Temperature Pulse Rate 80 81 81 Respiratory 24 25 30 Rate Blood Pressure 176/89 192/97 137/85 (mmHg) O2 Sat by Pulse 98 98 98 Oximetry 05/08/17 05/08/17 05/08/17 08:47 09:00 09:15 Temperature Pulse Rate 80 79 80 Respiratory 18 38 23 Rate Blood Pressure 168/77 177/84 (mmHg) O2 Sat by Pulse 98 98 99 Oximetry 05/08/17 05/08/17 05/08/17 09:31 09:45 09:46 Temperature Pulse Rate 86 82 82 Respiratory 20 22 25 Rate Blood Pressure 153/80 180/93 183/88 (mmHg) O2 Sat by Pulse 98 98 98 Oximetry 05/08/17 05/08/17 05/08/17 10:00 10:15 10:30 Temperature Pulse Rate 81 80 79 Respiratory 22 23 27 Rate Blood Pressure 165/96 175/96 174/84 (mmHg) O2 Sat by Pulse 97 99 97 Oximetry 05/08/17 05/08/17 05/08/17 10:45 11:00 11:15 Temperature Pulse Rate 76 74 75 Respiratory 24 23 25 Rate Blood Pressure 165/89 170/81 173/80 (mmHg) O2 Sat by Pulse 97 97 97 Oximetry 05/08/17 05/08/17 05/08/17 11:31 11:45 11:52 Temperature Pulse Rate 78 77 73 Respiratory 21 23 14 Rate Blood Pressure 162/91 176/79 (mmHg) O2 Sat by Pulse 96 97 100 Oximetry 05/08/17 05/08/17 05/08/17 12:00 12:15 12:30 Temperature Pulse Rate 73 77 73 Respiratory 23 19 22 Rate Blood Pressure 169/87 182/88 173/85 (mmHg) O2 Sat by Pulse 98 96 98 Oximetry 05/08/17 05/08/17 05/08/17 12:45 13:00 13:15 Temperature Pulse Rate 72 72 72 Respiratory 23 25 21 Rate Blood Pressure 166/80 164/77 161/75 (mmHg) O2 Sat by Pulse 98 97 97 Oximetry 05/08/17 05/08/17 05/08/17 13:31 13:47 14:00 Temperature Pulse Rate 83 82 82 Respiratory 31 18 25 Rate Blood Pressure 177/83 161/76 164/74 (mmHg) O2 Sat by Pulse 95 91 98 Oximetry 05/08/17 05/08/17 05/08/17 14:15 15:08 16:17 Temperature 98.2 F Pulse Rate 85 86 78 Respiratory 23 16 16 Rate Blood Pressure 164/77 130/52 (mmHg) O2 Sat by Pulse 99 98 96 Oximetry Oxygen Devices in Use Now: Nasal Cannula - 2L Appearance: Patient is a 76yo female who appears stated age and is sitting in the bed in NAD. Eyes: No Scleral Icterus, PERRLA Ears/Nose/Mouth/Throat: NL Teeth, Lips, Gums, Clear Oropharnyx, Mucous Membranes Moist Neck: NL Appearance and Movements; NL JVP, Trachea Midline Respiratory: Symmetrical Chest Expansion and Respiratory Effort, - - Severe expiratory wheezes in all lung metz and minor crackles in lower lobes. Tachypnic with accessory muscle use. Wheezes resolved and crackles decreased later in day. Cardiovascular: NL Sounds; No Murmurs; No JVD, RRR, No Edema Abdominal: NL Sounds; No Tenderness; No Distention, No Hepatosplenomegaly Lymphatic: No Cervical Adenopathy Extremities: No Edema, No Clubbing, Cyanosis Skin: No Rash or Ulcers, No Nodules or Sclerosis Neurological: Alert and Oriented x 3, NL Muscle Strength and Tone, - - CN II- XII intact Result Diagrams: 05/08/17 16:34 05/08/17 05:11 Additional Lab and Data: Lab Results Microbiology and Other Data: Microbiology 05/08/17 08:18 Nasal Screen MRSA (PCR)(EM) - Final Nasal Mrsa Negative 05/07/17 21:30 Legionella Urinary Antigen - Final Urine Negative Legionella Streptococcus pneumoniae Ag Screen - Final Negative S. pneumo Antigen 05/07/17 21:30 Influenza Types A,B Antigen (EM) - Final Nasal Specimen received for Influenza A/B Molecular testing Assess/Plan/Problems-Billing Assessment: Patient is a 76yo female with a PMH significant for Cardiomyopathy EF 40-45, DMII, CKD, COPD, HTN, HLD, microcytic anemia, and ONUR who presented with flash pulmonary edema on 05/07 and was aggressively diuresed with improvement in symptoms, but was found to have wheezes today and is also being treated for a COPD exacerbation. - Patient Problems (1) Pulmonary edema Current Visit: Yes Status: Acute Code(s): J81.1 - CHRONIC PULMONARY EDEMA SNOMED Code(s): 90594357 Comment: Flash pulmonary edema starting in the afternoon of 05/07. Treated with Nitro drip and Lasix in ED. ABG showed hypercapnic respiratory failure. On BiPAP and weaned down to 3L oxymask by morning. Crackles in lungs in morning. Negative over 2L in fluid today. Believed to be related to CHF. No recent medication changes or dietary indiscretions identified by patient. Currently on 2L oxymask Continue lasix, Metolazone and Spironolactone. Lasix at 40mg IV BID which is approximately home dose of bumex. (2) ONUR (obstructive sleep apnea) Current Visit: No Status: Acute Code(s): G47.33 - OBSTRUCTIVE SLEEP APNEA ( ADULT) (PEDIATRIC) SNOMED Code(s): 35579288 Comment: Non-compliant with CPAP in the past Will order in the hospital if patient will tolerate. (3) COPD (chronic obstructive pulmonary disease) Current Visit: No Status: Chronic Code(s): J44.9 - CHRONIC OBSTRUCTIVE PULMONARY DISEASE, UNSPECIFIED SNOMED Code(s): 73392522 Comment: Wheezing in AM with hypoxia and hypercarbia on ABG with decrease in pulmonary edema on CXR, treating for acute exacerbation. Will start PO Prednisone tomorrow. Duonebs scheduled. Ceftriaxone and Azithromycin. (4) Chronic combined systolic and diastolic CHF (congestive heart failure) Current Visit: No Status: Chronic Code(s): I50.42 - CHRONIC COMBINED SYSTOLIC AND DIASTOLIC HRT FAIL SNOMED Code(s): 313339127962269 Comment: EF 40-45% on echo from 10/2016. Troponins negative, no CP. No ischemic EKG changes. Will not repeat echo at this time. (5) Iron deficiency anemia due to chronic blood loss Current Visit: No Status: Chronic Code(s): D50.0 - IRON DEFICIENCY ANEMIA SECONDARY TO BLOOD LOSS (CHRONIC) SNOMED Code(s): 70842085 Comment: Reported history of chronic GI bleed from small bowel. Followed closely by PCP. Occasional BRBPR including one episode several days ago. Hemoccult ordered. Requires regular iron infusions HH stable. (6) Stage III chronic kidney disease Current Visit: No Status: Chronic Code(s): N18.3 - CHRONIC KIDNEY DISEASE, STAGE 3 (MODERATE) SNOMED Code(s): 895209601 Comment: Cret 1.02, increased for .91 at admission. Will monitor closely due to high dose of diuretics. (7) Type 2 diabetes mellitus Current Visit: No Status: Chronic Comment: HbgA1C 7.5 in 03/13. On 80u Lantus AM and 60u PM at home. Decreased to 50u QAM in hospital. SSI and carbohydrate counting. Glimiperide discontinued. Continue Metformin. (8) DVT prophylaxis Current Visit: No Status: Acute Code(s): NWT8256 - SNOMED Code(s): 639429536 Comment: Heparin SubQ (9) Full code status Current Visit: No Status: Acute Code(s): Z78.9 - OTHER SPECIFIED HEALTH STATUS SNOMED Code(s): 299994269 Status and Disposition: Patient is admitted inpatient. Will discharge when medically stable.
[2017-05-08] MEDS ORDERED: Albuterol 2.5 MG/3 ML NEB.SOL* (0.083%) INH PRN (19:14)
[2017-05-08] MEDS: Azithromycin IV(*) 500 MG in NS 0.9% 250 ML* 250 ML IVPB SCH (19:33)
[2017-05-08] MEDS ORDERED: Furosemide IV* 10 MG/ML 10 ML VIAL (100 MG) IV SCH (21:00)
[2017-05-08] MEDS: Terazosin CAP* 5 MG PO SCH (21:03)
[2017-05-08] MEDS: Citalopram TAB* 20 MG PO SCH (21:05)
[2017-05-08] MEDS: cefTRIAXone VIAL(*) 1,000 MG in NS 0.9% 50 ML* 50 ML IVPB SCH (21:05)
[2017-05-08] MEDS: Potassium Chlor TAB* 20 MEQ TAB.ER PO SCH (21:05)
[2017-05-09] MEDS: methylPREDNISolone SOD 40 MG* 1 ML VIAL IV SCH (03:35)
[2017-05-09] MEDS: Nitroglycerin TAB 0.4 MG* 0.4 MG TAB SL PRN ×10 (04:54→20:29)
[2017-05-09] MEDS: Acetaminophen TAB* 325 MG PO PRN (04:58)
[2017-05-09] MEDS: Levothyroxine TAB* 25 MCG TAB PO SCH (04:59)
[2017-05-09] MEDS: Heparin VIAL(*) 5000 UNITS/ML VIAL (FIVE THOUSAND) SUBCUT SCH ×3 (04:59→21:53)
[2017-05-09] MEDS: Atorvastatin* 10 MG TAB PO SCH (07:30)
[2017-05-09] MEDS: Spironolactone TAB* 25 MG PO SCH (07:30)
[2017-05-09] MEDS: Omeprazole CAP* 20 MG PO SCH (07:30)
[2017-05-09] MEDS: Carvedilol TAB* 25 MG PO SCH ×2 (07:30→17:50)
[2017-05-09] MEDS: Citalopram TAB* 20 MG PO SCH (07:30)
[2017-05-09] MEDS: Docusate CAP* 100 MG PO SCH ×2 (07:31→22:05)
[2017-05-09] MEDS: Ferrous Gluconate TAB* 324 MG TAB PO SCH ×2 (07:31→22:03)
[2017-05-09] MEDS: Potassium Chlor TAB* 20 MEQ TAB.ER PO SCH ×2 (07:31→22:05)
[2017-05-09] MEDS: Losartan TAB* 25 MG PO SCH ×2 (07:33→22:04)
[2017-05-09] MEDS: Furosemide IV* 10 MG/ML 10 ML VIAL (100 MG) IV SCH ×2 (08:04→21:56)
[2017-05-09 08:09] LABS: Albumin 3.1 g/dL (3.2-5.2); Calcium 8.4 mg/dL (8.6-10.3); EGFR African American 55.3 (>60); Globulin 4.1 g/dL (2-4); Magnesium 1.7 mg/dL (1.9-2.7); Potassium 4.2 mmol/L (3.5-5.0); Total Bilirubin 0.4 mg/dL (0.2-1.0); Total Protein 7.2 g/dL (6.4-8.9)
[2017-05-09 08:11] LABS: Troponin I 0.02 ng/mL (<0.04)
[2017-05-09 08:20] LABS: Comments Flag Yes; Hematocrit 26 % (35-47); Hemoglobin 8.1 g/dl (12.0-16.0); Mean Corpuscular HGB Conc 31 g/dl (31-36); Mean Corpuscular Hemoglobin 23 pg (27-31); Mean Platelet Volume 10 um3 (7.4-10.4); Red Blood Count 3.57 10^6/ul (4.0-5.4); Red Cell Distribution Width 18 % (10.5-15)
[2017-05-09 08:21] LABS: Mean Corpuscular Volume 73 fL (80-97)
[2017-05-09] MEDS ORDERED: Magnesium Sulfate 2 GM IV* 2 GM/50 ML BAG IVPB ONE (08:25)
[2017-05-09] MEDS ORDERED: Iodixanol* (CONTRAST) 320 MG/ML 100 ML SDV IV ONE (08:41)
[2017-05-09] MEDS ORDERED: Acetylcysteine CAP (RENAL)* 600 MG PO ONE (08:44)
[2017-05-09] MEDS ORDERED: Metolazone TAB* 5 MG PO SCH (09:00)
[2017-05-09] MEDS ORDERED: Insulin GLARGINE(*) 1 UNITS UNIT SUBCUT SCH (09:00)
[2017-05-09] MEDS: predniSONE TAB* 50 MG PO SCH (09:28)
[2017-05-09] MEDS: Oxybutynin XL TAB* 5 MG PO SCH (09:28)
[2017-05-09] MEDS: Insulin LISPRO* 1 UNITS UNIT SUBCUT SCH ×7 (09:28→21:51)
[2017-05-09] MEDS: Nystatin TOP POWDER* 15 GM BTL TOPICAL SCH ×2 (09:29→22:15)
--- NOTE | 2017-05-09 09:38 | RAD ---
HISTORY: Chest pain, back pain COMPARISONS: March 11, 2017 TECHNIQUE: Multiple contiguous axial CT scans of the chest were obtained after the administration of nonionic intravenous contrast, timed to the pulmonary arterial phase of contrast enhancement.. Coronal and sagittal multiplanar reformations are also submitted for review. FINDINGS: Evaluation is limited by patient breathing motion artifact. This limits evaluation of the subsegmental branches to the lower lobes bilaterally. NECK AND THYROID: The lower neck and thyroid are unremarkable. CHEST WALL: There is no lower cervical, axillary, or supraclavicular lymphadenopathy by size criteria. HEART AND PERICARDIUM: The heart is unremarkable. AORTA AND PULMONARY VASCULATURE: Evaluation is limited by patient breathing motion artifact. Within the limitations of the study, there is now pulmonary arterial filling defect to suggest pulmonary embolism. There is no linear filling defect within the aorta to suggest aortic dissection. MEDIASTINUM: There is no mediastinal lymphadenopathy by size criteria. BERNARDA: There is no hilar lymphadenopathy by size criteria. AIRWAY AND ESOPHAGUS: The airway is unremarkable, without endobronchial filling defect. The esophagus is grossly normal. LUNG PARENCHYMA: There is minimal dependent atelectasis of the lung bases bilaterally. PLEURA: There are small bilateral pleural effusions. UPPER ABDOMEN: There is hepatosplenomegaly. BONES AND SOFT TISSUES: Degenerative changes are noted. There is a scoliotic curvature of the spine OTHER: None. IMPRESSION: 1. LIMITED STUDY. 2. WITHIN THE LIMITATIONS OF THE STUDY, THERE IS NO PULMONARY ARTERIAL FILLING DEFECT TO SUGGEST PULMONARY EMBOLISM. 3. SMALL BILATERAL PLEURAL EFFUSIONS WITH DEPENDENT ATELECTASIS OF THE LUNG BASES BILATERALLY. 4. HEPATOSPLENOMEGALY
[2017-05-09 10:23] LABS: BUN/Creatinine Ratio 24.6 (8-20)
[2017-05-09] MEDS: Nitroglycerin 2% OINT* 1 GM PAK TOPICAL SCH ×2 (11:19→20:10)
--- NOTE | 2017-05-09 14:01 | PN ---
Subjective Date of Service: 05/09/17 Interval History: Patient had 3 episodes of chest pain today which started in the back and radiated to the chest. Patient rated it at 11/10 at it's worst. Responsive to Nitro. Patient not markedly hypertensive with any of the episodes. EKG shows slight T wave changes. Troponins .02x3. Patient had eaten breakfast this morning precluding stress test today. CTA of the chest negative for PE or Dissection. Placed on 1in nitro paste Q8H which eliminated patient's chest pain. Echo ordered. Patient denies other complaints such as increased SOB, Abdominal pain, constipation, F/C, N/V, Pain in legs, or other pain. Family History: Unchanged from Admission Social History: Unchanged from Admission Past Medical History: Unchanged from Admission Objective Active Medications: Acetaminophen (Tylenol Tab*) 650 mg PO Q6H PRN PRN Reason: FEVER/PAIN Last Admin: 05/09/17 04:58 Dose: 650 mg Albuterol (Ventolin 2.5 Mg/3 Ml Neb.Rachel*) 2.5 mg INH Q2H PRN PRN Reason: SOB/WHEEZING Albuterol (Ventolin 2.5 Mg/3 Ml Neb.Rachel*) 2.5 mg INH Q2H PRN PRN Reason: SOB/WHEEZING Atorvastatin Calcium (Lipitor*) 10 mg PO DAILY [facility] Last Admin: 05/09/17 07:30 Dose: 10 mg Carvedilol (Coreg Tab*) 25 mg PO BID WITH MEALS [facility] Last Admin: 05/09/17 07:30 Dose: 25 mg Citalopram Hydrobromide (Celexa Tab*) 20 mg PO DAILY [facility] Last Admin: 05/09/17 07:30 Dose: 20 mg Docusate Sodium (Colace Cap*) 200 mg PO BID [facility] Last Admin: 05/09/17 07:31 Dose: 200 mg Ferrous Gluconate (Fergon Tab*) 325 mg PO BID [facility] Last Admin: 05/09/17 07:31 Dose: 324 mg Furosemide (Lasix Iv*) 40 mg IV BID [facility] Last Admin: 05/09/17 08:04 Dose: 40 mg Heparin Sodium (Porcine) (Heparin Vial(*)) 5,000 units SUBCUT Q8HR [facility] Last Admin: 05/09/17 04:59 Dose: 5,000 units Hydralazine HCl (Apresoline Iv*) 5 mg IV SLOW PU Q6H PRN PRN Reason: SYSTOLIC BP GREATER THAN: Last Admin: 05/08/17 14:06 Dose: 5 mg Ceftriaxone Sodium 1,000 mg/ (Sodium Chloride) 50 mls @ 200 mls/hr IVPB Q24H [facility] Last Admin: 05/08/17 21:05 Dose: 200 mls/hr Azithromycin 500 mg/ Sodium (Chloride) 250 mls @ 250 mls/hr IVPB Q24H [facility] Last Admin: 05/08/17 19:33 Dose: 250 mls/hr Insulin Glargine (Lantus(*)) 50 units SUBCUT 0900 [facility] Stop: 05/09/17 20:00 Last Admin: 05/09/17 09:28 Dose: 50 unit Insulin Human Lispro (Humalog*) 0 units SUBCUT ACHS [facility] PRN Reason: Protocol Last Admin: 05/09/17 12:36 Dose: 15 units Insulin Human Lispro (Humalog*) 0 units SUBCUT AC [facility] PRN Reason: Protocol Last Admin: 05/09/17 12:36 Dose: 4 unit Levothyroxine Sodium (Synthroid Tab*) 25 mcg PO DAILY@0600 [facility] Last Admin: 05/09/17 04:59 Dose: 25 mcg Losartan Potassium (Cozaar Tab*) 50 mg PO BID [facility] Last Admin: 05/09/17 07:33 Dose: 50 mg Melatonin (Melatonin (Nf)) 3 mg PO BEDTIME PRN; Protocol PRN Reason: Sleep Metolazone (Zaroxolyn Tab*) 2.5 mg PO MoTh@0900 [facility] Last Admin: 05/09/17 07:35 Dose: 2.5 mg Nitroglycerin (Nitroglycerin Tab 0.4 Mg*) 0.4 mg SL Q5M PRN PRN Reason: CHEST PAIN Last Admin: 05/09/17 08:47 Dose: 0.4 mg Nitroglycerin (Nitroglycerin 2% Oint*) 1 inch TOPICAL Q8H [facility] PRN Reason: Protocol Last Admin: 05/09/17 11:19 Dose: 1 inch Nystatin (Nystatin Top Powder*) 1 applic TOPICAL BID [facility] Last Admin: 05/09/17 09:29 Dose: 1 applic Omeprazole (Prilosec Cap*) 20 mg PO DAILY@0730 [facility] Last Admin: 05/09/17 07:30 Dose: 20 mg Ondansetron HCl (Zofran Inj*) 4 mg IV Q6H PRN PRN Reason: NAUSEA Oxybutynin Chloride (Ditropan Xl Tab*) 10 mg PO DAILY [facility] PRN Reason: Protocol Last Admin: 05/09/17 09:28 Dose: 10 mg Potassium Chloride (Klor Con Er Tab*) 20 meq PO BID [facility] Last Admin: 05/09/17 07:31 Dose: 20 meq Prednisone (Deltasone Tab*) 50 mg PO DAILY [facility] Last Admin: 05/09/17 09:28 Dose: 50 mg Spironolactone (Aldactone Tab*) 25 mg PO DAILY [facility] Last Admin: 05/09/17 07:30 Dose: 25 mg Terazosin HCl (Hytrin Cap*) 10 mg PO BEDTIME [facility] Last Admin: 05/08/17 21:03 Dose: 10 mg Vital Signs 05/08/17 05/08/17 05/08/17 14:00 14:15 15:08 Temperature 98.2 F Pulse Rate 82 85 86 Respiratory 25 23 16 Rate Blood Pressure 164/74 164/77 130/52 (mmHg) O2 Sat by Pulse 98 99 98 Oximetry 05/08/17 05/08/17 05/08/17 15:26 16:17 19:02 Temperature 98.9 F 98.8 F Pulse Rate 87 78 89 Respiratory 20 16 16 Rate Blood Pressure 141/56 132/52 (mmHg) O2 Sat by Pulse 96 96 97 Oximetry 05/08/17 05/08/17 05/08/17 19:12 20:00 23:53 Temperature 98.0 F Pulse Rate 77 82 Respiratory 18 18 20 Rate Blood Pressure 158/76 (mmHg) O2 Sat by Pulse 98 100 Oximetry 05/09/17 05/09/17 05/09/17 03:40 07:17 08:00 Temperature 97.8 F 98.2 F Pulse Rate 78 78 Respiratory 20 24 20 Rate Blood Pressure 157/73 167/74 (mmHg) O2 Sat by Pulse 99 100 Oximetry 05/09/17 05/09/17 10:31 11:24 Temperature Pulse Rate 72 71 Respiratory 16 18 Rate Blood Pressure 141/56 (mmHg) O2 Sat by Pulse 99 99 Oximetry Oxygen Devices in Use Now: Nasal Cannula - 2L Appearance: Patient is a 76yo female who appears stated age and is sitting in the bed in NAD. Eyes: No Scleral Icterus, PERRLA Ears/Nose/Mouth/Throat: NL Teeth, Lips, Gums, Clear Oropharnyx, Mucous Membranes Moist Neck: NL Appearance and Movements; NL JVP, Trachea Midline Respiratory: Symmetrical Chest Expansion and Respiratory Effort, - - Slight crackles in lower lobes, decreased from yesterday. Cardiovascular: RRR, - - Grade 3/6 systolic murmur heard best at RUSB. Pulses 2 + in B/L radial, DP, and PT areas. Abdominal: No Hepatosplenomegaly, - - Slight tenderness to palpation in midline of abdomen, same as yesterday and chronic. BS present and normoactive in all 4 quadrants. Nondistended. Lymphatic: No Cervical Adenopathy Extremities: - - Trace edema Skin: No Rash or Ulcers Neurological: Alert and Oriented x 3, - - CN II-XII intact Result Diagrams: 05/09/17 07:48 05/09/17 07:48 Additional Lab and Data: Lab Results Microbiology and Other Data: Microbiology 05/08/17 08:18 Nasal Screen MRSA (PCR)(EM) - Final Nasal Mrsa Negative 05/07/17 21:30 Legionella Urinary Antigen - Final Urine Negative Legionella Streptococcus pneumoniae Ag Screen - Final Negative S. pneumo Antigen 05/07/17 21:30 Influenza Types A,B Antigen (EM) - Final Nasal Specimen received for Influenza A/B Molecular testing Assess/Plan/Problems-Billing Assessment: Patient is a 76yo female with a PMH significant for Cardiomyopathy EF 40-45, DMII, CKD, COPD, HTN, HLD, microcytic anemia, and ONUR who presented with flash pulmonary edema on 05/07 and was aggressively diuresed with improvement in symptoms, but was found to have wheezes today and is also being treated for a COPD exacerbation. - Patient Problems (1) Pulmonary edema Current Visit: Yes Status: Acute Code(s): J81.1 - CHRONIC PULMONARY EDEMA SNOMED Code(s): 81661985 Comment: Flash pulmonary edema starting in the afternoon of 05/07. Treated with Nitro drip and Lasix in ED. ABG showed hypercapnic respiratory failure. On BiPAP and weaned down to 3L oxymask by morning. Crackles in lungs in morning. Negative over 2L in fluid. Believed to be related to CHF. No recent medication changes or dietary indiscretions identified by patient. Appreciate cardiology consult. Currently on 2L NC Continue lasix, Metolazone and Spironolactone. Lasix at 40mg IV BID which is approximately home dose of bumex. Echo pending. (2) COPD (chronic obstructive pulmonary disease) Current Visit: No Status: Chronic Code(s): J44.9 - CHRONIC OBSTRUCTIVE PULMONARY DISEASE, UNSPECIFIED SNOMED Code(s): 03046839 Comment: Wheezing in AM on 05/08 hypoxia and hypercarbia on ABG with decrease in pulmonary edema on CXR, treating for acute exacerbation. Will start PO Prednisone tomorrow. Duonebs scheduled. Ceftriaxone and Azithromycin. (3) Chronic combined systolic and diastolic CHF (congestive heart failure) Current Visit: No Status: Chronic Code(s): I50.42 - CHRONIC COMBINED SYSTOLIC AND DIASTOLIC HRT FAIL SNOMED Code(s): 528552262497977 Comment: EF 40-45% on echo from 10/2016. CP this morning, responsive to Nitro. Slight T wave changes but negative Troponins. Appreciate cardiology consult. Repeat Echo, stress test in morning. On 1inch of Nitro paste Q8H. (4) Iron deficiency anemia due to chronic blood loss Current Visit: No Status: Chronic Code(s): D50.0 - IRON DEFICIENCY ANEMIA SECONDARY TO BLOOD LOSS (CHRONIC) SNOMED Code(s): 91791531 Comment: Reported history of chronic GI bleed from small bowel. Followed closely by PCP. Occasional BRBPR including one episode several days ago. Hemoccult ordered and negative. Requires regular iron infusions, hasn't been set up with PCP yet HH stable, will monitor and keep a low threshold for transfusion. (5) Stage III chronic kidney disease Current Visit: No Status: Chronic Code(s): N18.3 - CHRONIC KIDNEY DISEASE, STAGE 3 (MODERATE) SNOMED Code(s): 566612259 Comment: Cret 1.22, increased from .91 at admission. Will monitor closely due to high dose of diuretics. N-Acetylcysteine ordered to avoid contrast induced nephropathy. PO intake encouraged. No fluids given due to pulmonary edema. (6) Type 2 diabetes mellitus Current Visit: No Status: Chronic Comment: HbgA1C 7.5 in 03/13. On 80u Lantus AM and 60u PM at home. Decreased to 50u QAM in hospital. SSI and carbohydrate counting. Glimiperide and metformin discontinued. Poor Control. Will not increase basal insulin at this point due to NPO after midnight order. (7) ONUR (obstructive sleep apnea) Current Visit: No Status: Acute Code(s): G47.33 - OBSTRUCTIVE SLEEP APNEA ( ADULT) (PEDIATRIC) SNOMED Code(s): 32240218 Comment: Non-compliant with CPAP in the past (8) DVT prophylaxis Current Visit: No Status: Acute Code(s): MYB2901 - SNOMED Code(s): 183631257 Comment: Heparin SubQ (9) Full code status Current Visit: No Status: Acute Code(s): Z78.9 - OTHER SPECIFIED HEALTH STATUS SNOMED Code(s): 883934868 Status and Disposition: Patient is admitted inpatient. Will discharge when medically stable.
--- NOTE | 2017-05-09 15:33 | ECHO ---
Patient: TOSIN CASTRO [facility] Rec#: [id number] : 1940 Date: 05/09/2017 Age: 76y Height: 162.6 cm / 64.0 in Weight: 99.3 kg / 218.9 lbs Sex: F BSA: 2 Room#: [facility] Admit Date#: 05/09/2017 Type: Inpatient Referring: Lj Vu MD Reading: Swapnil Horton MD Spar Machine Operator: Enid Thomas RN RDCS Transthoracic Echocardiogram Indication: Chest pain BP: 157/73 HR: 78 Rhythm: NSR Findings History: Cardiomyopathy, HTN, HLD, CHF, DM, CKD, ONUR, COPD Technical Comments: The study quality is fair. The study is technically limited due to patient body habitus. The study is technically limited due to the patient's history of COPD. Completed at 1515. Left Ventricle: The left ventricular chamber size is normal. Moderate concentric left ventricular hypertrophy is observed. There are multiple regional wall motion abnormalities. There is mildly decreased left ventricular systolic function. The estimated ejection fraction is 40-45%. The left ventricular diastolic filling pattern is consistent with pseudonormalization. Left Atrium: The left atrium is mild to moderately dilated. Right Ventricle: The right ventricular cavity size is normal. The right ventricular global systolic function is normal. Right Atrium: The right atrial cavity size is normal. Aortic Valve: The aortic valve is trileaflet. The aortic valve leaflets are mildly thickened. There is no evidence of aortic regurgitation. There is no evidence of aortic stenosis. Mitral Valve: The mitral valve leaflets are mildly thickened. There is mild mitral regurgitation. There is no evidence of mitral stenosis. Tricuspid Valve: The tricuspid valve leaflets are normal. There is trace to mild tricuspid regurgitation. Unable to estimate the right ventricular systolic pressure. There is no tricuspid stenosis. Pulmonic Valve: The pulmonic valve appears normal. There is a trace pulmonic regurgitation. There is no pulmonic stenosis. Pericardium: There is no significant pericardial effusion. A pericardial fat pad is visualized. Aorta: There is no dilatation of the ascending aorta. There is no dilatation of the aortic arch. There is no dilation of the aortic root. Pulmonary Artery: The main pulmonary artery appears normal. Venous: The venous system is not well visualized. The inferior vena cava is not visualized. Summary: There are no significant changes when compared to the previous study done on 11/23/16 Conclusions Moderate concentric left ventricular hypertrophy is observed. There are multiple regional wall motion abnormalities. There is mildly decreased left ventricular systolic function. The estimated ejection fraction is 40-45%. There is no evidence of aortic regurgitation. There is no evidence of aortic stenosis. There is mild mitral regurgitation. There is trace to mild tricuspid regurgitation. Unable to estimate the right ventricular systolic pressure. There is no significant pericardial effusion. Measurements Name Value Normal Range RVIDd (AP) 2D 2.3 cm (0.9 - 2.6) RVDdMajor (2D) 3.5 cm (2.2 - 4.4) RAd ISD 4CH 4.4 cm (3.4 - 4.9) RA (A4C)W 3.8 cm (2.9 - 4.6) IVSd (2D) 1.4 cm (0.6 - 1) LVPWd (2D) 1.4 cm (0.6 - 1) LVIDd (2D) 5.3 cm (3.6 - 5.4) LVIDs (2D) 4.2 cm - LV FS (2D) 21 % (25 - 45) EF Teichholz (2D) 41.32 % - Aortic Annulus 2 cm (1.4 - 2.6) Ao root diameter (2D) 2.3 cm (2.1 - 3.5) Ascending Ao 2.7 cm (2.1 - 3.4) Aortic arch 3.2 cm (1.8 - 3.4) LA dimension (AP) 2D 4.3 cm (2.3 - 3.8) LAd ISD 4CH 5.4 cm (2.9 - 5.3) LA ISD 4CH W 4.4 cm (2.5 - 4.5) Name Value Normal Range LA ESV SP 4CH (A/L) 85 ml - LA ESV SP 2CH (A/L) 89 ml - LA ESV BP (A/L) 89 ml - LA ESV BP (A/L) index 44 ml/m2 - LA ESV SP 4CH (MOD) 82 ml - LA ESV SP 2CH (MOD) 81 ml - Name Value Normal Range MV E-wave Vmax 1.2 m/sec - MV deceleration time 213 msec - MV A-wave Vmax 1 m/sec - MV E:A ratio 1.1 ratio - LV septal e' Vmax 0.06 m/sec - LV lateral e' Vmax 0.07 m/sec - LV E:e' septal ratio 20 ratio - LV E:e' lateral ratio 17.1 ratio - Name Value Normal Range AV Vmax 1.5 m/sec - AV VTI 41.4 cm - AV peak gradient 9 mmHg - AV mean gradient 6.6 mmHg - LVOT Vmax 1 m/sec - LVOT VTI 24.5 cm - LVOT peak gradient 4.2 mmHg - LVOT mean gradient 2.3 mmHg - LISA Vmax 0.8 m/sec - Name Value Normal Range PV Vmax 1 m/sec -
[2017-05-09] MEDS: Azithromycin IV(*) 500 MG in NS 0.9% 250 ML* 250 ML IVPB SCH (19:56)
--- NOTE | 2017-05-09 20:08 | CONS ---
CC: Neena Moyer MD * CARDIOLOGY CONSULTATION: DATE OF CONSULT: 05/09/17 INDICATION FOR CONSULTATION: Chest pain, congestive heart failure. HISTORY OF PRESENT ILLNESS: The patient is a 76-year-old female well known to me from outpatient evaluations who was admitted to the hospital with worsening shortness of breath. The patient was admitted to the hospital on 05/07/17, with onset of shortness of breath and chest discomfort. She was evaluated in the emergency room and diagnosed with congestive heart failure and COPD exacerbation. She was started on diuretics. Her blood pressure was controlled. She was also put on BiPAP. The patient ruled out for myocardial infarction and was markedly improved and was transferred to the floor. Yesterday, the patient had decompensation of her shortness of breath and was placed again on BiPAP. This morning, the patient started having chest pain. She described the chest pain as 8/10 chest pain, it started in her back and radiated forward to her left chest. She does not have any significant shortness of breath with this discomfort. She does not have any diaphoresis. She does not have any nausea or vomiting. She was treated with sublingual nitroglycerin with significant improvement in her symptoms. I was asked to evaluate the patient. When I went in and saw the patient, she was pain free. Her EKG showed no obvious EKG changes. Her troponins have been negative. About 5 minutes after I left the room, the patient started complaining of the same 8/10 chest pain. When I went in to evaluate the patient, she looked similar in presentation. She did not seem in significant distress. Her blood pressure at that time was 158/90, respiratory rate 16, oxygen saturation 96% on 2 L. The patient again received sublingual nitroglycerin with significant improvement in her symptoms. The patient had a brief echocardiogram which showed mildly reduced LV systolic function, ejection fraction of 40% to 45%, no obvious focal wall motion abnormalities. The patient was transported downstairs for a CTA of the chest to rule out dissection and pulmonary embolism, this was negative. The patient was started on nitroglycerin patch and has had no further chest pain. PAST MEDICAL HISTORY: Significant for: 1. Diabetes. 2. Non-ischemic cardiomyopathy. 3. She had a cardiac catheterization in 2008, which showed normal coronary arteries. 4. She has renal insufficiency. 5. Hypertension. 6. Hyperlipidemia. 7. Microcytic anemia. 8. Obstructive sleep apnea. PAST SURGICAL HISTORY: 1. Hernia repair. 2. Hysterectomy. 3. Rotator cuff surgery. OUTPATIENT MEDICATIONS: 1. Bumex 2 mg twice a day. 2. Losartan 50 mg b.i.d. 3. Terazosin 5 mg q.h.s. 4. Metformin as directed. 5. Coreg 25 mg b.i.d. 6. Cymbalta 20 mg a day. 7. Iron tablets. 8. Insulin as directed. 9. Levothyroxine 25 mcg a day. 10. Metolazone 2.5 mg weekly. 11. Potassium as directed. 12. Simvastatin 20 mg a day. 13. Spironolactone 25 mg a day. 14. Detrol LA 4 mg a day. 15. Glyburide 10 mg b.i.d. ALLERGIES: CAPTOPRIL. SOCIAL HISTORY: She denies tobacco or alcohol use. She lives with her . She is retired. PHYSICAL EXAM: Vital Signs: Height is 5 feet 4 inches, weight 219 pounds. Heart rate is 71, respiratory rate is 18, oxygen saturation 99% on 2 L, blood pressure 141/56, temperature is afebrile. Sclerae anicteric. Oropharynx is pink without erythema. Carotids are 2+ without bruits. JVD is normal. Thyroid is normal. Cardiac Exam: S1, S2 without any murmurs, rubs, or gallops. Lungs are clear to auscultation. There is minimal rales at the bases. There is no dullness to percussion. Abdomen is obese, soft, nontender, nondistended with normoactive bowel sounds. Extremities show no edema. She has 2+ pulses throughout. The patient is awake, alert, and oriented. She moves all 4 extremities equally. DIAGNOSTIC STUDIES/LAB DATA: White count is 8, hemoglobin is 8.1, hematocrit 26 , platelet count 169,000. Chemistry is within normal limits. BUN 30, creatinine 1.2. AST and ALT are normal. Troponins are negative x3. EKG shows normal sinus rhythm with non-specific T-wave abnormalities. IMPRESSION: This is a 76-year-old female with a history of diabetes, history of diastolic dysfunction, history of mild cardiomyopathy, who was admitted to the hospital with congestive heart failure and chronic obstructive pulmonary disease exacerbation. Both of them responded quickly to interventions. The patient has had a number of episodes of chest pain this morning. She describes it as an 8/10 chest pain starting in her back and radiating forward and this resolved quickly with one sublingual nitroglycerin. Her ischemic markers are negative. CTA of her chest shows no evidence of dissection or pulmonary embolism. For now, my recommendation is that the patient continue on maximum medical therapy. We will continue to give her blood pressure medications. The patient will undergo a chemical nuclear stress test for further evaluation of her cardiac perfusion. Again, the patient had a normal cardiac catheterization in 2008. The patient will also get an echocardiogram for reevaluation of her LV function and valvular status. At this point, I do not think any medication changes are necessary. [id number]/[facility] #: [id number] WENDY
[2017-05-09] MEDS: Terazosin CAP* 5 MG PO SCH (22:05)
[2017-05-09] MEDS: Calcium Carbonate CHEW TAB* 500 MG (TUMS) PO PRN (22:07)
[2017-05-09] MEDS: cefTRIAXone VIAL(*) 1,000 MG in NS 0.9% 50 ML* 50 ML IVPB SCH (22:11)
[2017-05-10] MEDS: Nitroglycerin 2% OINT* 1 GM PAK TOPICAL SCH (03:04)
[2017-05-10] MEDS: Heparin VIAL(*) 5000 UNITS/ML VIAL (FIVE THOUSAND) SUBCUT SCH ×3 (05:39→21:53)
[2017-05-10] MEDS: Levothyroxine TAB* 25 MCG TAB PO SCH (05:41)
[2017-05-10 06:15] LABS: Hematocrit 27 % (35-47); Hemoglobin 8.3 g/dl (12.0-16.0); Mean Corpuscular HGB Conc 31 g/dl (31-36); Mean Corpuscular Hemoglobin 23 pg (27-31); Mean Platelet Volume 10 um3 (7.4-10.4); Red Cell Distribution Width 18 % (10.5-15); White Blood Count 8.8 10^3/ul (3.5-10.8)
[2017-05-10 06:17] LABS: Comments Flag Yes; Mean Corpuscular Volume 74 fL (80-97)
[2017-05-10] MEDS: Calcium Carbonate CHEW TAB* 500 MG (TUMS) PO PRN ×3 (06:25→21:55)
[2017-05-10 06:29] LABS: Albumin 3.2 g/dL (3.2-5.2); Calcium 8.7 mg/dL (8.6-10.3); EGFR African American 51.8 (>60); EGFR Non-African American 40.3 (>60); Magnesium 2.1 mg/dL (1.9-2.7); Total Bilirubin 0.4 mg/dL (0.2-1.0); Total Protein 7.2 g/dL (6.4-8.9)
[2017-05-10] MEDS: Nitroglycerin TAB 0.4 MG* 0.4 MG TAB SL PRN ×3 (06:40→07:17)
[2017-05-10] MEDS ORDERED: Al Hydrox/Mg Hydrox/Simet LIQ* 30 ML UDC PO PRN ×2 (07:37→09:40)
[2017-05-10] MEDS ORDERED: Morphine INJ* 2 MG/ML 1 ML SYRINGE (TWO MG - NEW SYRINGE VERSION) IV ONE (07:48)
[2017-05-10] MEDS: Insulin LISPRO* 1 UNITS UNIT SUBCUT SCH ×7 (08:05→21:52)
[2017-05-10] MEDS ORDERED: Calcium Carbonate CHEW TAB* 500 MG (TUMS) PO ONE (08:21)
[2017-05-10] MEDS ORDERED: Diazepam TAB(*) 5 MG PO ONE (08:24)
[2017-05-10] MEDS ORDERED: diPHENhydraMINE PO* 25 MG PO ONE (08:24)
[2017-05-10] MEDS ORDERED: NS 0.9% 1000 ML* 1,000 ML IV SCH (08:30)
[2017-05-10] MEDS: predniSONE TAB* 50 MG PO SCH (08:35)
[2017-05-10] MEDS: Ferrous Gluconate TAB* 324 MG TAB PO SCH ×2 (08:35→21:50)
[2017-05-10] MEDS: Docusate CAP* 100 MG PO SCH ×2 (08:35→21:50)
[2017-05-10] MEDS: Potassium Chlor TAB* 20 MEQ TAB.ER PO SCH ×2 (08:35→21:49)
[2017-05-10] MEDS: Spironolactone TAB* 25 MG PO SCH (08:35)
[2017-05-10] MEDS: Oxybutynin XL TAB* 5 MG PO SCH (08:36)
[2017-05-10] MEDS: Carvedilol TAB* 25 MG PO SCH ×2 (08:36→16:29)
[2017-05-10] MEDS: Losartan TAB* 25 MG PO SCH ×2 (08:36→21:50)
[2017-05-10] MEDS: Omeprazole CAP* 20 MG PO SCH (08:37)
[2017-05-10] MEDS: Atorvastatin* 10 MG TAB PO SCH (08:37)
[2017-05-10] MEDS: Citalopram TAB* 20 MG PO SCH (08:37)
[2017-05-10] MEDS: Furosemide IV* 10 MG/ML VIAL (40 MG) IV SCH ×2 (08:38→22:08)
[2017-05-10] MEDS ORDERED: Lidocaine 1% INJ* 10 MG/ML 30 ML SDV ONE ×2 (08:49→09:00)
[2017-05-10] MEDS ORDERED: Iodixanol* (CONTRAST) 320 MG/ML 100 ML SDV ONE (08:49)
[2017-05-10] MEDS ORDERED: Heparin 2 UNITS/ML IVPREMIX* 1,000 ML IV ONE ×2 (08:49→09:02)
[2017-05-10] MEDS ORDERED: Midazolam* 1 MG/ML 10 ML VIAL (10 MG) ONE (09:00)
[2017-05-10] MEDS ORDERED: fentaNYL* 50 MCG/ML 2 ML VIAL (100 MCG VIAL) ONE (09:00)
--- NOTE | 2017-05-10 16:59 | PN ---
Subjective Date of Service: 05/10/17 Interval History: Patient had chest pain this morning that was slightly different in character than yesterday and was reproducible with palpation. However, it improved with nitro SL but did not go away entirely. Did not respond to antacids either and the decision was made to do a cardiac catheterization which was normal. Patient had no other symptoms with this chest pain. Patient states it feels a little like indigestion, but not like she generally has at home. Patient had no other complaints. Family History: Unchanged from Admission Social History: Unchanged from Admission Past Medical History: Unchanged from Admission Objective Active Medications: Acetaminophen (Tylenol Tab*) 650 mg PO Q6H PRN PRN Reason: FEVER/PAIN Last Admin: 05/09/17 04:58 Dose: 650 mg Al Hydrox/Mg Hydrox/Simethicone (Maalox Plus*) 30 ml PO Q4H PRN PRN Reason: INDIGESTION Albuterol (Ventolin 2.5 Mg/3 Ml Neb.Rachel*) 2.5 mg INH Q2H PRN PRN Reason: SOB/WHEEZING Albuterol (Ventolin 2.5 Mg/3 Ml Neb.Rachel*) 2.5 mg INH Q2H PRN PRN Reason: SOB/WHEEZING Atorvastatin Calcium (Lipitor*) 10 mg PO DAILY [facility] Last Admin: 05/10/17 08:37 Dose: 10 mg Calcium Carbonate (Tums*) 500 mg PO Q4H PRN PRN Reason: INDIGESTION Last Admin: 05/10/17 16:29 Dose: 500 mg Carvedilol (Coreg Tab*) 25 mg PO BID WITH MEALS [facility] Last Admin: 05/10/17 16:29 Dose: 25 mg Citalopram Hydrobromide (Celexa Tab*) 20 mg PO DAILY [facility] Last Admin: 05/10/17 08:37 Dose: 20 mg Docusate Sodium (Colace Cap*) 200 mg PO BID [facility] Last Admin: 05/10/17 08:35 Dose: 200 mg Ferrous Gluconate (Fergon Tab*) 325 mg PO BID [facility] Last Admin: 05/10/17 08:35 Dose: 325 mg Furosemide (Lasix Iv*) 30 mg IV BID [facility] Last Admin: 05/10/17 08:38 Dose: 30 mg Heparin Sodium (Porcine) (Heparin Vial(*)) 5,000 units SUBCUT Q8HR [facility] Last Admin: 05/10/17 13:42 Dose: 5,000 units Hydralazine HCl (Apresoline Iv*) 5 mg IV SLOW PU Q6H PRN PRN Reason: SYSTOLIC BP GREATER THAN: Last Admin: 05/08/17 14:06 Dose: 5 mg Ceftriaxone Sodium 1,000 mg/ (Sodium Chloride) 50 mls @ 200 mls/hr IVPB Q24H [facility] Last Admin: 05/09/17 22:11 Dose: 200 mls/hr Azithromycin 500 mg/ Sodium (Chloride) 250 mls @ 250 mls/hr IVPB Q24H [facility] Last Admin: 05/09/17 19:56 Dose: 250 mls/hr Insulin Human Lispro (Humalog*) 0 units SUBCUT ACHS [facility] PRN Reason: Protocol Last Admin: 05/10/17 12:14 Dose: 3 units Insulin Human Lispro (Humalog*) 0 units SUBCUT AC [facility] PRN Reason: Protocol Last Admin: 05/10/17 13:43 Dose: Not Given Levothyroxine Sodium (Synthroid Tab*) 25 mcg PO DAILY@0600 [facility] Last Admin: 05/10/17 05:41 Dose: 25 mcg Losartan Potassium (Cozaar Tab*) 50 mg PO BID [facility] Last Admin: 05/10/17 08:36 Dose: 50 mg Melatonin (Melatonin (Nf)) 3 mg PO BEDTIME PRN; Protocol PRN Reason: Sleep Metolazone (Zaroxolyn Tab*) 2.5 mg PO MoTh@0900 [facility] Last Admin: 05/09/17 07:35 Dose: 2.5 mg Nitroglycerin (Nitroglycerin Tab 0.4 Mg*) 0.4 mg SL Q5M PRN PRN Reason: CHEST PAIN Last Admin: 05/10/17 07:17 Dose: 0.4 mg Omeprazole (Prilosec Cap*) 20 mg PO DAILY@0730 [facility] Last Admin: 05/10/17 08:37 Dose: 20 mg Ondansetron HCl (Zofran Inj*) 4 mg IV Q6H PRN PRN Reason: NAUSEA Last Admin: 05/10/17 06:21 Dose: 4 mg Oxybutynin Chloride (Ditropan Xl Tab*) 10 mg PO DAILY [facility] PRN Reason: Protocol Last Admin: 11/14/17 08:36 Dose: 10 mg Potassium Chloride (Klor Con Er Tab*) 20 meq PO BID [facility] Last Admin: 05/10/17 08:35 Dose: 20 meq Prednisone (Deltasone Tab*) 50 mg PO DAILY [facility] Last Admin: 05/10/17 08:35 Dose: 50 mg Spironolactone (Aldactone Tab*) 25 mg PO DAILY [facility] Last Admin: 05/10/17 08:35 Dose: 25 mg Terazosin HCl (Hytrin Cap*) 10 mg PO BEDTIME [facility] Last Admin: 05/09/17 22:05 Dose: 10 mg Vital Signs 05/09/17 05/09/17 05/09/17 19:47 20:00 23:28 Temperature 98.3 F Pulse Rate 71 Respiratory 20 20 Rate Blood Pressure 146/61 (mmHg) O2 Sat by Pulse 100 98 Oximetry 05/10/17 05/10/17 05/10/17 00:08 04:12 07:56 Temperature 98.8 F 97.7 F 98.2 F Pulse Rate 72 69 64 Respiratory 20 18 20 Rate Blood Pressure 128/60 141/64 141/71 (mmHg) O2 Sat by Pulse 100 100 100 Oximetry 05/10/17 05/10/17 05/10/17 07:59 08:00 08:35 Temperature Pulse Rate 70 Respiratory 22 22 18 Rate Blood Pressure (mmHg) O2 Sat by Pulse 98 Oximetry 05/10/17 05/10/17 05/10/17 08:39 08:40 08:55 Temperature Pulse Rate Respiratory 22 22 22 Rate Blood Pressure (mmHg) O2 Sat by Pulse Oximetry 05/10/17 05/10/17 05/10/17 10:16 11:17 11:20 Temperature 98.0 F Pulse Rate 58 Respiratory 22 20 20 Rate Blood Pressure 124/55 (mmHg) O2 Sat by Pulse 100 Oximetry 05/10/17 11:56 Temperature 97.7 F Pulse Rate 64 Respiratory 18 Rate Blood Pressure 123/54 (mmHg) O2 Sat by Pulse 100 Oximetry Oxygen Devices in Use Now: Nasal Cannula - 2L Appearance: Patient is a 76yo female who appears stated age and is sitting in the bed in NAD. Eyes: No Scleral Icterus, PERRLA Ears/Nose/Mouth/Throat: NL Teeth, Lips, Gums, Clear Oropharnyx, Mucous Membranes Moist Neck: NL Appearance and Movements; NL JVP, Trachea Midline Respiratory: Symmetrical Chest Expansion and Respiratory Effort, - - Slight crackles in Lower Lobes B/L, stable from previous exam. Cardiovascular: NL Sounds; No Murmurs; No JVD, RRR, No Edema, - - Pulses 2+ in B /L radial, DP, PT areas. Pain with palpation over the lower sternum. Abdominal: NL Sounds; No Tenderness; No Distention, No Hepatosplenomegaly, - - Tenderness to palpation in central abdomen consistent with previous exams Lymphatic: No Cervical Adenopathy Extremities: No Edema, No Clubbing, Cyanosis Skin: No Rash or Ulcers, No Nodules or Sclerosis Neurological: Alert and Oriented x 3, NL Gait, NL Muscle Strength and Tone Result Diagrams: 05/10/17 05:53 05/10/17 05:53 Additional Lab and Data: Lab Results Microbiology and Other Data: Microbiology 05/08/17 08:18 Nasal Screen MRSA (PCR)(EM) - Final Nasal Mrsa Negative 05/07/17 21:30 Legionella Urinary Antigen - Final Urine Negative Legionella Streptococcus pneumoniae Ag Screen - Final Negative S. pneumo Antigen 05/07/17 21:30 Influenza Types A,B Antigen (EM) - Final Nasal Specimen received for Influenza A/B Molecular testing Assess/Plan/Problems-Billing Assessment: Patient is a 76yo female with a PMH significant for Cardiomyopathy EF 40-45, DMII, CKD, COPD, HTN, HLD, microcytic anemia, and ONUR who presented with flash pulmonary edema on 05/07 and was aggressively diuresed with improvement in symptoms, but was found to have wheezes today and is also being treated for a COPD exacerbation. Patient had chest pain while in the hospital and underwent a cardiac catheterization which was normal. - Patient Problems (1) Pulmonary edema Current Visit: Yes Status: Acute Code(s): J81.1 - CHRONIC PULMONARY EDEMA SNOMED Code(s): 64485937 Comment: Flash pulmonary edema starting in the afternoon of 05/07. Treated with Nitro drip and Lasix in ED. ABG showed hypercapnic respiratory failure. On BiPAP and weaned down to 3L oxymask by morning. Crackles in lungs in morning. Negative over 2L in fluid. Believed to be related to CHF. No recent medication changes or dietary indiscretions identified by patient. Appreciate cardiology consult. Currently on 2L NC, will wean as tolerated. Continue lasix, Metolazone and Spironolactone. Lasix at 30mg IV BID which is below home dose of bumex. Echo consistent with previous study with an EF of 40-45% (2) COPD (chronic obstructive pulmonary disease) Current Visit: No Status: Chronic Code(s): J44.9 - CHRONIC OBSTRUCTIVE PULMONARY DISEASE, UNSPECIFIED SNOMED Code(s): 67980377 Comment: Wheezing in AM on 05/08 hypoxia and hypercarbia on ABG with decrease in pulmonary edema on CXR, treating for acute exacerbation. PO Prednisone. Duonebs PRN. Ceftriaxone and Azithromycin. (3) Chronic combined systolic and diastolic CHF (congestive heart failure) Current Visit: No Status: Chronic Code(s): I50.42 - CHRONIC COMBINED SYSTOLIC AND DIASTOLIC HRT FAIL SNOMED Code(s): 075119906515454 Comment: EF 40-45% on echo from 04/2017. CP intermittently last 2 days. Responsive to Nitro but also Tums. Appreciate cardiology consult. Cardiac Cath normal. (4) Iron deficiency anemia due to chronic blood loss Current Visit: No Status: Chronic Code(s): D50.0 - IRON DEFICIENCY ANEMIA SECONDARY TO BLOOD LOSS (CHRONIC) SNOMED Code(s): 93658677 Comment: Reported history of chronic GI bleed from small bowel. Followed closely by PCP. Occasional BRBPR including one episode several days ago. Hemoccult ordered and negative. Requires regular iron infusions, hasn't been set up with PCP yet HH stable, will monitor and keep a low threshold for transfusion. (5) Stage III chronic kidney disease Current Visit: No Status: Chronic Code(s): N18.3 - CHRONIC KIDNEY DISEASE, STAGE 3 (MODERATE) SNOMED Code(s): 822910902 Comment: Cret 1.29, increased from .91 at admission. Baseline slightly above 1. Will monitor closely due to high dose of diuretics. N-Acetylcysteine ordered to avoid contrast induced nephropathy. PO intake encouraged. No fluids given due to pulmonary edema. (6) Type 2 diabetes mellitus Current Visit: No Status: Chronic Comment: HbgA1C 7.5 in 03/13. On 80u Lantus AM and 60u PM at home. Decreased to 50u QAM in hospital. SSI and carbohydrate counting. Glimiperide and metformin discontinued. Good control currently, very little PO intake due to procedures. Will increase basal insulin as tolerated. (7) ONUR (obstructive sleep apnea) Current Visit: No Status: Acute Code(s): G47.33 - OBSTRUCTIVE SLEEP APNEA ( ADULT) (PEDIATRIC) SNOMED Code(s): 75259124 Comment: Non-compliant with CPAP in the past (8) DVT prophylaxis Current Visit: No Status: Acute Code(s): PFM3547 - SNOMED Code(s): 359574756 Comment: Heparin SubQ (9) Full code status Current Visit: No Status: Acute Code(s): Z78.9 - OTHER SPECIFIED HEALTH STATUS SNOMED Code(s): 759915246 Status and Disposition: Patient is admitted inpatient. Will discharge when medically stable, estimate LOS 1-2 days.
[2017-05-10] MEDS: Azithromycin IV(*) 500 MG in NS 0.9% 250 ML* 250 ML IVPB SCH (20:26)
[2017-05-10] MEDS: Terazosin CAP* 5 MG PO SCH (21:51)
[2017-05-10] MEDS: cefTRIAXone VIAL(*) 1,000 MG in NS 0.9% 50 ML* 50 ML IVPB SCH (22:04)
[2017-05-11] MEDS: Acetaminophen TAB* 325 MG PO PRN (00:36)
--- NOTE | 2017-05-11 02:07 | CATH ---
CARDIAC CATHETERIZATION REPORT: DATE OF PROCEDURE: 05/10/17 - ROOM #[id number] PROCEDURE: Cardiac catheterization including coronary angiography. INDICATION: Chest pain, abnormal EKG. HISTORY: The patient is a 76-year-old female with a history of hypertension, history of diabetes, history of obesity, who came to the hospital 3 days ago because of shortness of breath. She was found to have congestive heart failure and COPD exacerbation. She was placed on BiPAP. The patient has been having intermittent chest pain that starts in her left scapula and radiates around to her chest and up into her jaw, relieved with nitroglycerin. Her troponins have been negative. Her EKG shows no obvious EKG changes. This morning, the patient had onset of her discomfort. It was rated as a 9/10. She took nitroglycerin and Tums with no relief. Cardiac catheterization was recommended to rule out coronary artery disease. The patient had a cardiac catheterization in 2008 which showed normal coronary arteries. DESCRIPTION OF PROCEDURE: The patient was placed supine on the catheterization table, both femoral areas were cleaned and draped in the usual fashion. 1% lidocaine was used for local anesthesia. All laboratory studies were reviewed. The patient's creatinine is starting to go up a little bit because of her contrast dye that she received yesterday; this was noted. The patient's right femoral artery area was injected with lidocaine and the right femoral artery was entered by a modified Seldinger technique and guidewire was placed. A 6- [place] sheath introducer was placed. The patient underwent coronary angiography using a 6-[place] JL4 catheter and a 6-[place] JR4 catheter. At the end of the procedure, an angiogram of the femoral artery demonstrated normal position and a Mynx closure device was deployed. The patient tolerated the procedure well. There were no complications. A total of 40 cc of Omnipaque dye was used. A total of 1.3 minutes of fluoro time was used. FINDINGS: Left main artery: The left main was normal in size. It bifurcated into the LAD and circumflex. There was no evidence of stenosis. Left anterior descending artery: The LAD was normal in size. It gave off 3 diagonal vessels. There was no evidence of stenosis. Left circumflex artery: The circumflex artery was normal in size. It gave off 1 obtuse marginal branch. There was no evidence of stenosis. Right coronary artery: The RCA was a dominant vessel. It gave off the PDA. There was no evidence of stenosis. IMPRESSION: Normal coronary arteries. RECOMMENDATION: The patient will continue on medical therapy for evaluation of her chest discomfort. [id number]/[facility] #: [id number] WENDY
[2017-05-11] MEDS: Levothyroxine TAB* 25 MCG TAB PO SCH (06:09)
[2017-05-11] MEDS: Heparin VIAL(*) 5000 UNITS/ML VIAL (FIVE THOUSAND) SUBCUT SCH (06:09)
[2017-05-11 07:06] LABS: Albumin 3.2 g/dL (3.2-5.2); Calcium 8.7 mg/dL (8.6-10.3); EGFR Non-African American 45.1 (>60); Globulin 3.9 g/dL (2-4); Potassium 4.3 mmol/L (3.5-5.0); Total Bilirubin 0.4 mg/dL (0.2-1.0); Total Protein 7.1 g/dL (6.4-8.9)
[2017-05-11 07:15] LABS: Comments Flag Yes; Hematocrit 27 % (35-47); Hemoglobin 8.4 g/dl (12.0-16.0); Mean Corpuscular HGB Conc 31 g/dl (31-36); Mean Corpuscular Hemoglobin 23 pg (27-31); Mean Platelet Volume 11 um3 (7.4-10.4); Red Blood Count 3.65 10^6/ul (4.0-5.4); Red Cell Distribution Width 19 % (10.5-15); White Blood Count 8.1 10^3/ul (3.5-10.8)
[2017-05-11 07:16] LABS: Mean Corpuscular Volume 75 fL (80-97)
[2017-05-11] MEDS: Oxybutynin XL TAB* 5 MG PO SCH (08:36)
[2017-05-11] MEDS: Furosemide IV* 10 MG/ML VIAL (40 MG) IV SCH (08:36)
[2017-05-11] MEDS: Docusate CAP* 100 MG PO SCH (08:36)
[2017-05-11] MEDS: Insulin LISPRO* 1 UNITS UNIT SUBCUT SCH ×2 (08:36)
[2017-05-11] MEDS: Ferrous Gluconate TAB* 324 MG TAB PO SCH (08:37)
[2017-05-11] MEDS: predniSONE TAB* 50 MG PO SCH (08:37)
[2017-05-11] MEDS: Citalopram TAB* 20 MG PO SCH (08:37)
[2017-05-11] MEDS: Spironolactone TAB* 25 MG PO SCH (08:37)
[2017-05-11] MEDS: Losartan TAB* 25 MG PO SCH (08:37)
[2017-05-11] MEDS: Potassium Chlor TAB* 20 MEQ TAB.ER PO SCH (08:37)
[2017-05-11] MEDS: Carvedilol TAB* 25 MG PO SCH (08:37)
[2017-05-11] MEDS: Omeprazole CAP* 20 MG PO SCH (08:37)
[2017-05-11] MEDS: Atorvastatin* 10 MG TAB PO SCH (08:37)
[2017-05-11 08:58] VITALS: BP 138/66
--- NOTE | 2017-05-11 14:27 | PN ---
Subjective Date of Service: 05/11/17 - cc: sob, improved Interval History: Pt seen and examined this morning. Breathing is much better after dieresis. She admits to eating canned soups high in salt due to difficulty of cooking. No dizziness going to bathroom. Medications Active Medications: see discharge medication list. Objective Vital Signs: Temp Pulse Resp BP Pulse Ox 98.3 F 51 16 138/66 99 05/11/17 08:23 05/11/17 08:35 05/11/17 08:35 05/11/17 08:23 05/11/17 08:35 Oxygen Devices in Use Now: None, Nasal Cannula Appearance: centripitally obese, lying 30 degrees, comfortable. Eyes: No Scleral Icterus, PERRLA Ears/Nose/Mouth/Throat: Clear Oropharnyx, Mucous Membranes Moist Neck: No Thyroid Enlargement, Masses Respiratory: Symmetrical Chest Expansion and Respiratory Effort, Clear to Auscultation Cardiovascular: RRR Abdominal: NL Sounds; No Tenderness; No Distention, No Hepatosplenomegaly Extremities: No Edema Skin: No Rash or Ulcers Neurological: Alert and Oriented x 3, NL Muscle Strength and Tone Laboratory Results: 05/11/17 06:44 05/11/17 06:44 INR (Anticoag Therapy) 1.03 (0.89-1.11) 05/07/17 17:48 APTT 26.5 seconds (26.0-36.3) 05/07/17 17:48 Total Bilirubin 0.40 mg/dL (0.2-1.0) 05/11/17 06:44 AST 16 U/L (13-39) 05/11/17 06:44 ALT 14 U/L (7-52) 05/11/17 06:44 Alkaline Phosphatase 74 U/L (34-104) 05/11/17 06:44 CK-MB (CK-2) 4.1 ng/mL (0.6-6.3) 05/07/17 17:48 B-Natriuretic Peptide 282 pg/mL (-100) H 05/07/17 17:48 Total Protein 7.1 g/dL (6.4-8.9) 05/11/17 06:44 Albumin 3.2 g/dL (3.2-5.2) 05/11/17 06:44 Globulin 3.9 g/dL (2-4) 05/11/17 06:44 Albumin/Globulin Ratio 0.8 (1-3) L 05/11/17 06:44 TSH 8.10 mcIU/mL (0.34-5.60) H 05/07/17 17:48 05/09/17 05/09/17 05/09/17 04:44 07:48 11:45 Troponin I 0.02 0.02 0.02 05/10/17 05:53 Troponin I 0.03 Diagnostic Imaging: cath 05/10/17: normal C's, EF 45% Echo Apr 2017: EF 45%, trace to mild valve leaks, unable to estimate PApr. Assessment/Plan 76 yo female admitted with profound dyspnea. [place] to be due to CHF. Cath reassuring. The patient has responded well to dieresis, but BUN is now elevated. The patient does have a scale at home and I discussed using todays weight as her goal weight and to call Dr. Horton if he weight increases more than 3-5 lbs above today's weight. we discussed dietary optimization. Chronic anemia noted. Follow up with Dr. Horton.
--- NOTE | 2017-05-12 13:23 | DS ---
DISCHARGE SUMMARY: DATE OF ADMISSION: 05/07/17 DATE OF DISCHARGE: 05/11/17 PRIMARY CARE PROVIDER: Neena Moyer MD. ATTENDING PHYSICIAN WHILE IN THE HOSPITAL: Davie Akbar MD * (DICTATED BY SOFIA RAYMUNDO) CONSULTING PROVIDERS: Dr. Swapnil Horton and Dr. Olivia Reveles of Cardiology. PRIMARY DISCHARGE DIAGNOSES: 1. Congestive heart failure exacerbation with flash pulmonary edema. 2. Chronic obstructive pulmonary disease exacerbation. 3. Chest pain. SECONDARY DISCHARGE DIAGNOSES: 1. Diabetes mellitus type 2, uncontrolled. 2. Congestive heart failure. 3. Chronic kidney disease stage 2. 4. Hypertension. 5. Hyperlipidemia. 6. Chronic microcytic anemia due to gastrointestinal bleed. 7. Obstructive sleep apnea. 8. Spinal stenosis. STUDIES DONE WHILE IN THE HOSPITAL: Electrocardiogram from 05/07/17 shows sinus rhythm with significant artifact, probable left ventricular hypertrophy and left atrial enlargement, normal axis. No ST-segment changes interpretable. QTc of 497. No other abnormalities. EKG from 05/08/17 shows lots of artifact, normal axis, intraventricular conduction delay, no significant changes from previous exam. EKG from 05/09/17 shows no significant changes from previous EKG. Repeat EKG from 05/11 shows no significant changes from previous EKG; QTc 514. EKG from 05/09/17 consistent with previous study. EKG from 05/10/17 shows reversal of T-wave inversion in V2. Chest x-ray from 05/07/17 read as pulmonary interstitial edema with bibasilar consolidations suggestive of superimposed pneumonic consolidation versus pulmonary alveolar edema. Chest x-ray from 05/08/17 shows moderate vascular congestion. There is interval improvement. Transthoracic echocardiogram from shows mild concentric left ventricular hypertrophy, multiple regional wall-motion abnormalities, mildly decreased left ventricular systolic function, estimated ejection fraction of 40% to 45%. No evidence of aortic regurgitation or evidence of aortic stenosis, mild mitral regurgitation, mild tricuspid regurgitation, unable to estimate right ventricular systolic pressure. No significant pericardial effusion. Chest thorax CTA from 05/09/17 read as limited study, within limitations of the study there is no pulmonary arterial filling defect to suggest pulmonary embolism. Small bilateral pleural effusion with dependent atelectasis of the lung bases bilaterally, hepatosplenomegaly. Cardiac catheterization from 05/10/17 showed normal coronary arteries. MEDICATIONS AT DISCHARGE: 1. Terazosin 10 mg p.o. at bedtime. 2. Bumex 2 mg p.o. b.i.d. 3. Losartan 50 mg p.o. b.i.d. 4. Carvedilol 25 mg p.o. b.i.d. 5. Glyburide 10 mg p.o. b.i.d. 6. Ferrous gluconate 325 mg p.o. b.i.d. 7. Levothyroxine 25 mcg p.o. daily. 8. Metolazone 2.5 mg p.o. twice a week. 9. Simvastatin 20 mg p.o. daily. 10. Potassium chloride 20 mEq p.o. b.i.d. 11. Spironolactone 25 mg p.o. daily. 12. Tolterodine 4 mg p.o. daily. 13. Nystatin topical powder 1 application b.i.d. as needed. 14. Triamcinolone cream 1 application topical daily. 15. Citalopram 20 mg p.o. daily. 16. Albuterol inhaler 1 puff inhalation q. 4 hours as needed for wheezing. 17. Azithromycin 250 mg p.o. daily x1. 18. Tums 500 mg p.o. q. 4 hours as needed for indigestion or chest pain. 19. Cefpodoxime 200 mg p.o. q. 12 hours x6. 20. Prednisone 50 mg p.o. daily x3. 21. Insulin glargine 50 units subcutaneous q. a.m. 22. Insulin glargine 30 units subcutaneous q. p.m. New Medications at discharge: 1. Albuterol. 2. Azithromycin. 3. Calcium carbonate. 4. Cefpodoxime. 5. Prednisone. 6. Insulin glargine 50 units. 7. Insulin glargine 30 units. Medications discontinued at discharge: 1. Metformin 1000 mg p.o. q. a.m. and p.m. 2. Insulin glargine 80 units subcutaneous q. a.m. 3. Insulin glargine 60 units subcutaneous q. p.m. HOSPITAL COURSE: This is a brief summary of the patient's presentation. For more details, please see the history and physical from Dr. Dhiraj Figueroa, from 05/07/17. The patient is a 76-year-old female with a past medical history stated as above who presented to the emergency room with worsening shortness of breath starting about 1700 on 05/07. The patient has mild substernal chest pressure without associated symptoms. The patient had no abnormalities prior to her nap. The patient was treated with nitro. The patient has had altered mental status and was treated with nitro drip, furosemide, and BiPAP. ABG showed hypercapnic respiratory failure. On repeat interventions, the patient's ABG normalized greatly and the patient was alert and oriented and able to converse. She was weaned off of BiPAP. The patient was redosed with Lasix due to poor urinary output. The patient had no increase in her troponin. The patient had an elevated D-dimer at 400, this was deemed to be a nonindicative of pulmonary embolism. The patient had a chest x- ray read as above, was started on empiric azithromycin and ceftriaxone. Urine strep pneumo and legionella antigens were negative as was influenza. The patient's most recent A1c was 8.1, the patient was started on carb ratio insulin with a.c./h.s. sliding scale insulin coverage. On the morning of 05/11/17 the patient was found to be in acute respiratory distress on 3 L of oxygen which was increased, the patient's respiratory exam showed decreased crackles in the bilateral lower lobes, but wheezing throughout with severely prolonged expiratory phase. The patient has had altered mental status. The patient's blood sugar was found to be 62 on fingerstick. The patient was transferred to the ICU in preparation for restarting on BiPAP; however, the patient's altered mental status recovered after administration of sugary drinks. The patient's repeat ABG was relatively normal and the patient was transferred back to the floor on 2 L nasal cannula. The patient had no other complaints rest of that day. The patient's blood sugar increased up to the 300s and 400s after her nighttime Lantus dose was held and she was eating a consistent carbohydrate heart-healthy diet while in the hospital. The patient on the morning of 05/09/17 had 9/10 and per report 11 /10 chest pain on 2 different occasions which was responsive to sublingual nitroglycerin. She had several EKG done which were as above and did not show any ischemic changes, except for T-wave inversions in V2 which were present on admission. Cardiology was consulted and the patient was scheduled for a stress test on the morning of 05/10/17 because she had already eaten breakfast by the time she was seen on the morning of 05/09/17. The patient had several episodes of recurrent chest pain throughout the day 05/09/17 and a nitro patch with 1 inch of nitro paste was applied which managed to successfully the patient's symptoms. In the evening the patient states that there was some slight change in the character of her chest pain and states that this felt more like a indigestion. The patient had Tums which resolved the chest pain at that time. The patient had recurrent chest pain in the morning of 05/11/17 which was nonresponsive to nitroglycerin, Tums; however, this pain was reproducible with palpation and the patient stated it also felt like indigestion, but given the patient's cardiac risk factors and previous chest pain of similar character that was controlled with nitroglycerin, the patient was taken for a cardiac catheterization which was normal as above. There were no complications to this procedure. The patient had no evidence of acute bleeding. Of note, the patient hemoglobin was 9.4 on admission which dropped to 7.8 on 05/08/17 and increased to 8.4 in the afternoon of 05/08/17 and then stayed approximately there for the rest of her admission. This is a microcytic anemia which is chronic to this patient. The patient previously received iron transfusions outpatient which have not yet been set up with her primary care doctor. The patient's primary care doctor called about possibly having iron transfusions while in the hospital but this was not a service that was deemed to be needed in this admission that also carries significant risks of anaphylaxis which would severely complicate the patient's already somewhat deteriorated clinical picture. The patient was weaned off of oxygen for several hours in the evening of 05/10/17. However, the patient was found to desat to the mid 80s later that evening and was put back on 2 L of oxygen. The patient was started on prednisone, starting with IV prednisolone and transitioning to oral prednisone therapy on the morning of 05/08/17 due to concern for concurrent COPD exacerbation to her CHF exacerbation. The patient not treated with any inhaler therapy for her COPD at home. The patient previously was prescribed oxygen at home but was able to wean off of it. On the morning of 05/11/17, the patient had no complaints. The patient was in good spirits; patient was eating well; patient's blood sugars were relatively well controlled on the sliding scale insulin and her Lantus at 50 units q. a.m. On the patient's last day in the hospital, 05/10/17, patient received 24 units of Lispro insulin. This was used to approximately estimate the dose with which to restart her insulin at home; however, this was an odd estimation due to the patient being on prednisone therapy and not having any full days in the hospital where she was not n.p.o. The patient's blood pressure was elevated on admission and remained elevated through the first day of her hospitalization, but then dropped to the 130s/60s for the duration of her hospital stay. The patient could not identify any changes in her diet that could have precipitated this, has had previously precipitated CHF exacerbations such as eating a high salt diet. The patient states she still eats caned soup with difficulty standing in the kitchen, but that she now uses the low-sodium variety. Patient was counseled by cardiology about her diet and the need to restrict salt in her diet. The patient will be sent home on 2 L of oxygen which will hopefully be weaned off after the acute phase of her COPD exacerbation has fully resolved. The patient was instructed to check her blood sugars 3 times a day until she sees her primary care doctor, whenever she gets an estimation of her blood sugar control. The patient refused [facility] home care services. PHYSICAL EXAMINATION: On the day of discharge: General: The patient is a 76-year-old female who appears her stated age and sitting in the bed in no acute distress. Vital Signs: At discharge, temperature 98.3, pulse rate 58, respiratory rate 18 , oxygen saturation 100% on 2 L oxygen, blood pressure 130/62. HEENT: Head normocephalic and atraumatic. Sclerae anicteric. No conjunctival injection. Nasal mucosa moist. Oral mucosa moist and intact. Pharynx not erythematous. Neck: Supple and nontender. No lymphadenopathy. No carotid bruits auscultated. Cardiac: Regular, rate, and rhythm. No clicks, murmurs, gallops, or rubs. Pulses 2+ in the bilateral posterior tibialis, dorsalis pedis, and radial areas. 1+ pitting edema in the bilateral lower extremities. Respiratory: There are slight crackles, greatly improved from previous exams in the patient's bilateral lower lobes. No wheezes noted. Good air exchange bilaterally. Abdomen: Protuberant. There is a slight area of tenderness on the midline which was consistent and did not change throughout the patient's hospitalization. No hepatosplenomegaly. No tenderness to palpation over the thorax. Genitourinary: No CVA tenderness or suprapubic tenderness. Skin: Clean, dry, and intact. No rash. Psychiatric: Pleasant and cooperative. Neurological: Cranial nerves II through XII grossly intact. Strength preserved in the upper and lower extremities. Alert and oriented x3. LABORATORY DATA: On the date of discharge; white blood cell count 8.1, red blood cell count 3.65, hemoglobin 8.4, hematocrit 27, MCV 75, MCH 23, MCH 331, RDW 19, MPV 11. Sodium 137, potassium 4.3, chloride 98, carbon dioxide 34, anion gap 5, BUN 41, creatinine 1.17, glucose 119. Calcium 8.7, bilirubin 0.4, AST 16, ALT 14, alkaline phosphatase 7.4, total protein 7.1, albumin 3.2, globulin 3.9. DISCHARGE PLAN: The patient will be discharged home on oxygen therapy, antibiotic therapy, and prednisone therapy with a rescue inhaler for her COPD and on her previous home diuretic regimen. The patient was negative approximately 6 L while in the hospital and had her weight drop 7 pounds. The patient was counseled on the importance of keeping salt off her diet. The patient should follow up with her primary care doctor within 1 week to assess functional status, blood glucose control, and general medical management. The patient should also follow up for outpatient iron infusions as she currently has iron-deficiency anemia and is on iron therapy which she did not appear to be absorbing. The patient should hold her metformin until she is seen by her primary care doctor and has repeat lab work. The patient received IV contrast twice while in the hospital for a CTA of the chest and for cardiac catheterization. The patient should be monitored for contrast induced nephropathy within 1 week of her hospitalization. The patient should have a heart-healthy, consistent-carbohydrate diet with emphasis on low salt. The patient should be allowed to have caffeine. The patient should have activity as tolerated with the goal of hopeful weight loss and cardiovascular conditioning. TIME SPENT: Approximately 75 minutes was spent on this discharge, 30 of which was spent [id number] with the patient obtaining the history and physical and discussing treatment plan. SOFIA RAYMUNDO [id number]/CPS #: [id number] WENDY
== END 2017-05-11 12:16 | disposition home health service (06) | DRG 286 ==
LOC: ED 17:39 → MEDTELE 21:21 → ICU 05-08 08:05 → OBSVTOIN 05-08 08:07 → MEDTELE 05-08 12:04 → INTOOBSV 05-09 07:13 → OBSVTOIN 05-09 07:13
PROVIDERS: ADMIT Hospitalist; ATTEND Internal Medicine
PROC: 5A09357 Assistance with Respiratory Ventilation, Less than 24 Consecutive Hours, Continuous Positive Airway Pressure (ICD-10-PCS; 2017-05-07)
PROC: B2111ZZ Fluoroscopy of Multiple Coronary Arteries using Low Osmolar Contrast (ICD-10-PCS; principal; 2017-05-08)
DX: I13.0 Hypertensive heart and chronic kidney disease with heart failure and stage 1 through stage 4 chronic kidney disease, or unspecified chronic kidney disease (principal); I50.43 Acute on chronic combined systolic (congestive) and diastolic (congestive) heart failure; J81.1 Chronic pulmonary edema; R06.03 Acute respiratory distress; E11.22 Type 2 diabetes mellitus with diabetic chronic kidney disease; K92.2 Gastrointestinal hemorrhage, unspecified; I08.1 Rheumatic disorders of both mitral and tricuspid valves; E11.649 Type 2 diabetes mellitus with hypoglycemia without coma; J44.1 Chronic obstructive pulmonary disease with (acute) exacerbation; J98.11 Atelectasis; E11.65 Type 2 diabetes mellitus with hyperglycemia; I42.8 Other cardiomyopathies; E78.5 Hyperlipidemia, unspecified; G47.33 Obstructive sleep apnea (adult) (pediatric); M48.00 Spinal stenosis, site unspecified; E66.9 Obesity, unspecified; N18.2 Chronic kidney disease, stage 2 (mild); M19.90 Unspecified osteoarthritis, unspecified site; F41.9 Anxiety disorder, unspecified; D50.0 Iron deficiency anemia secondary to blood loss (chronic); R07.9 Chest pain, unspecified; R16.2 Hepatomegaly with splenomegaly, not elsewhere classified; R41.82 Altered mental status, unspecified; Z98.42 Cataract extraction status, left eye; Z88.8 Allergy status to other drugs, medicaments and biological substances; Z99.81 Dependence on supplemental oxygen; Z98.41 Cataract extraction status, right eye; Z90.710 Acquired absence of both cervix and uterus; Z87.891 Personal history of nicotine dependence; Z83.3 Family history of diabetes mellitus; Z68.37 Body mass index [BMI] 37.0-37.9, adult; Z82.49 Family history of ischemic heart disease and other diseases of the circulatory system; Z79.4 Long term (current) use of insulin
CPT/HCPCS: 36415; 36600; 71010; 71275; 80048; 80053; 81003; 81015; 82272; 82550; 82553; 82803; 82947; 83036; 83605; 83690; 83735; 83880; 84443; 84484; 85014; 85018; 85025; 85060; 85379; 85610; 85730; 86140; 87502; 87641; 87899; 93005; 93306; 93454; 94640; 94660; 94760; A9270-GY; C1760; C1887; J0360; J0456; J0696; J1644; J1940; J2001; J2250; J2270; J2405; J2920; J3010; J3475; J7512; Q9967

== ENCOUNTER 2018-02-20 12:32 | Inpatient (IN) | payer MEDICARE, OTHER ==
[2018-02-20] MEDS ORDERED: Albuterol/Ipratropium NEB.SOL* Albuterol 2.5 MG/Ipratropium 0.5 MG 3 ML INH ONE (13:14)
[2018-02-20] MEDS ORDERED: Dexamethasone IV* 4 MG/ML 1 ML (4 MG) IV SLOW PU ONE (13:15)
[2018-02-20] MEDS ORDERED: Furosemide IV* 10 MG/ML VIAL (40 MG) IV ONE (13:15)
--- NOTE | 2018-02-20 13:15 | ED ---
Shortness of Breath - HPI Summary HPI Summary: The pt is a 77 y/o female with a PMHx of CHF and COPD BIBA to [facility] c/o SOB for 5 days worsened today. She used 2L O2 NC at home. She notes CP (described as a tightness) , nonproductive cough , post nasal drip, and bilateral pedal edema. The CP rated 6/10 in severity, is aggravated by deep breaths. She saw her airways control specialist 3-4 days ago. - History of Current Complaint Chief Complaint: EDShortnessOfBreath Time Seen by Provider: 02/20/18 13:06 Hx Obtained From: Patient, Family/Senior Behavioral Scientist Onset/Duration: Gradual Onset, Lasting Days - 5 days, Worse Since - Today Aggrevating Factors: Deep Breaths - Allergy/Home Medications Allergies/Adverse Reactions: Allergies Allergy/AdvReac Type Severity Reaction Status Date / Time captopril Allergy Severe Hives Verified 02/20/18 13:03 PMH/Surg Hx/FS Hx/Imm Hx Previously Healthy: No Endocrine/Hematology History: Reports: Hx Diabetes, Hx Anemia - chronic iron infusions Cardiovascular History: Reports: Hx Congestive Heart Failure, Hx Hypertension, Other Cardiovascular Problems/Disorders - cardiomyopathy Denies: Hx Pacemaker/ICD Respiratory History: Reports: Hx Asthma, Hx Chronic Obstructive Pulmonary Disease (COPD), Hx Sleep Apnea, Other Respiratory Problems/Disorders - emphysema GI History: Reports: Hx Gastrointestinal Bleed, Hx Hiatal Hernia - s/p repair, Other GI Disorders - HELICOBACTER INFECTION History: Reports: Other Problems/Disorders - CKD stage 3 Denies: Hx Renal Disease Musculoskeletal History: Reports: Hx Arthritis, Hx Back Problems, Other Musculoskeletal History - spinal stenosis Sensory History: Reports: Hx Cataracts - surgery with implants bilat eyes 96, Hx Contacts or Glasses - readers only Denies: Hx Hearing Aid Opthamlomology History: Reports: Hx Cataracts - surgery with implants bilat eyes 96, Hx Contacts or Glasses - readers only Neurological History: Reports: Other Neuro Impairments/Disorders - vertigo Psychiatric History: Reports: Other Psychiatric Issues/Disorders - PT REPORTS "STRESS" AND SAYS HER MD GAVE HER A MED FOR IT, UNSURE WHAT Denies: Hx Panic Disorder - Surgical History Surgery Procedure, Year, and Place: HERNIA. HYSTERECTOMY. CATERACTS. CARPAL TUNNEL. CYSTS REMOVED FROM BILATERAL ARMPITS. RTC RT. LT FOOT SURGERY - Immunization History Date of Tetanus Vaccine: UTD Date of Influenza Vaccine: 02/2016 Infectious Disease History: No Infectious Disease History: Denies: Traveled Outside the [place] in Last 30 Days - Family History Known Family History: Positive: Other - Yes - CHF (Mother) - Social History Occupation: Retired Lives: With Family Alcohol Use: None Substance Use Type: Reports: None Hx Tobacco Use: Yes Smoking Status (MU): Former Smoker Have You Smoked in the Last Year: No Review of Systems ENT: Other - Positive: post-nasal drip Positive: Chest Pain Positive: Shortness Of Breath, Cough - non-productive Positive: Edema - Bilaterlal pedal edema All Other Systems Reviewed And Are Negative: Yes Physical Exam - Summary Physical Exam Summary: GENERAL: Patient is a well developed and nourished F who is lying comfortable in the stretcher. Patient is acute respiratory distress. HEAD AND FACE: Normocephalic EYES: PERRLA, EOMI x 2. EARS: Hearing grossly intact. MOUTH: Oropharynx within normal limits. NECK: Supple, trachea is midline, no adenopathy, no JVD, no carotid bruit. CHEST: Symmetric, no tenderness at palpation LUNGS:Decreased breath sounds with mild wheezing bilaterally CVS: Regular rate and rhythm, S1 and S2 present, no murmurs or gallops appreciated. ABDOMEN: Soft, non-tender. Bowel sounds are normal. No abdominal abnormal pulsations. EXTREMITIES: 3+ pedal edema bilaterally Full ROM in all major joints, no cyanosis or clubbing. NEURO: Alert and oriented x 3. No acute neurological deficits. Speech is normal and follows commands. SKIN: Dry and warm Triage Information Reviewed: Yes Vital Signs On Initial Exam: Initial Vitals Temp Pulse Resp BP Pulse Ox 98.3 F 91 15 211/112 100 02/20/18 12:58 02/20/18 12:58 02/20/18 12:58 02/20/18 12:58 02/20/18 12:58 Vital Signs Reviewed: Yes Diagnostics - Vital Signs Vital Signs Temp Pulse Resp BP Pulse Ox 02/20/18 12:58 98.3 F 91 15 211/112 100 - Laboratory Result Diagrams: 02/20/18 13:22 02/20/18 13:22 Lab Statement: Any lab studies that have been ordered have been reviewed, and results considered in the medical decision making process. - Radiology CXR Radiology Interpretation Completed By: Radiologist - IMPRESSION: INTERSTITIAL AND ALVEOLAR EDEMA. SUGGEST FOLLOW-UP. GIVEN THESE DIFFUSE CHANGES CONSISTING INFECTIOUS INFILTRATES ARE NOT EXCLUDED The ED physician has reviewed this radiology report. - EKG 14:42 Cardiac Rate: NL - 69 bpm EKG Interpretation: LVH; Borderline prolonged QT interval;Inverted T waves in the lateral leads Course/Dx - Course Course Of Treatment: A 77 year-old F presents to the ED with a CC of SOB for 5 days worsened today. She used 2L O2 NC at home. She notes CP (described as a tightness) , nonproductive cough , post nasal drip, and bilateral pedal edema. The CP rated 6/10 in severity, is aggravated by deep breaths. A physical exam revealed acute respiratory distress, decreased breath sounds, wheezing bilaterally, and 3+ bilateral pedal edema. While here in the emergency room, patient developed worsening shortness of breath and became diaphoretic, depressed mental status and bradycardiac down to HR in the 40s while at the beside trying to initate breathing treatment and BiPAP. The decision was made to then intubate the patient however, she started responding to the breathing treatment and BiPAP while we set up for intubation and so I remained at bedside for an extended period of time while trying to stabilize the patient. She responded appropriately to bedside intervention and so the decision was made to not intubate. A CXR reveals interstitial and alveolar edema. In the ED course, pt was given Albuterol, Furosemide, Dexamethasone, Azithromycin, NTG, and Pantoprazole which improved the symptoms. I discussed the care of the pt with Dr. Lutz who agreed to admit her to the ICU given the acute need for BiPAP. The pt will be admitted with a final Dx of CHF and COPD exacerbation. The pt is agreeable with this plan. Allergies noted. - Diagnoses Provider Diagnoses: CHF (congestive heart failure) - Physician Notifications Discussed Care of Patient With: Stacie Lutz - Hospitalist Time Discussed With Above Provider: 14:38 Instructed by Provider To: Admit As Inpatient - Critical Care Time Critical Care Time: 75-104 min - 104 minutes Discharge - Sign-Out/Discharge Documenting (check all that apply): Patient Departure - Admit All imaging exams completed and their final reports reviewed: Yes - Discharge Plan Condition: Stable Disposition: ADMITTED TO [facility] - Billing Disposition and Condition Condition: STABLE Disposition: Admitted to [facility] - Attestation Statements Document Initiated by Vitaliy: Yes Documenting Scribe: Candy Francisco Provider For Whom Vitaliy is Documenting (Include Credential): Dr. Manuel Gil MD Scribe Attestation: Candy Benitez , scribed for Dr. Manuel Gil MD on 02/20/18 at 1844. Scribe Documentation Reviewed: Yes Provider Attestation: The documentation as recorded by the cathrynibCandy graf accurately reflects the service I personally performed and the decisions made by me, Dr. Manuel Gil MD
[2018-02-20] MEDS ORDERED: Azithromycin IV(*) 500 MG in NS 0.9% 250 ML* 250 ML IVPB ONE (13:17)
[2018-02-20] MEDS ORDERED: Rocuronium* 10 MG/ML VIAL ONE ×2 (13:39→14:06)
[2018-02-20 13:47] LABS: INR 1.02 (0.77-1.02)
[2018-02-20] MEDS ORDERED: Nitroglycerin TAB 0.4 MG* 0.4 MG TAB SL ONE (13:54)
[2018-02-20 13:57] LABS: EGFR Non-African American 55.2 (>60)
[2018-02-20] MEDS ORDERED: Nitroglycerin TAB 0.4 MG* 0.4 MG TAB ONE (13:57)
[2018-02-20] MEDS: Nitroglycerin TAB 0.4 MG* 0.4 MG TAB SL ONE ×2 (14:01→16:12)
[2018-02-20] MEDS ORDERED: Etomidate* 2 MG/ML 20 ML VIAL (40 MG) ONE (14:06)
[2018-02-20 14:13] LABS: Hematocrit 30 % (35-47); Hemoglobin 9.4 g/dl (12.0-16.0); Mean Corpuscular HGB Conc 31 g/dl (31-36); Mean Corpuscular Hemoglobin 22 pg (27-31); Mean Corpuscular Volume 72 fL (80-97); Red Blood Count 4.24 10^6/ul (4.00-5.40); Red Cell Distribution Width 23 % (10.5-15); White Blood Count 6.6 10^3/ul (3.5-10.8)
--- NOTE | 2018-02-20 14:38 | RAD ---
INDICATION: Short of breath COMPARISON: May 08, 2017 TECHNIQUE: An AP portable view obtained at 1420 hours is submitted. FINDINGS: Bones/Soft Tissues: There are no acute bony findings. Cardiomediastinal: The heart is enlarged. Central pulmonary vessels are prominent. There is interstitial edema. Lungs: Interstitial edema with alveolar changes in lung bases. Pleura: Small bilateral pleural effusions. Other: None IMPRESSION: INTERSTITIAL AND ALVEOLAR EDEMA. SUGGEST FOLLOW-UP. GIVEN THESE DIFFUSE CHANGES CONSISTING INFECTIOUS INFILTRATES ARE NOT EXCLUDED
[2018-02-20 14:45] LABS: Mean Platelet Volume 8.6 um3 (7.4-10.4); Platelet Count 125 10^3/ul (150-450)
[2018-02-20 14:53] LABS: ABS Basophils 0.1 10^3/ul (0-0.2); ABS Neutrophils 4.6 10^3/ul (1.5-7.7); Monocytes % 4 % (0-7); Schistocytes 1+
[2018-02-20] MEDS ORDERED: Pantoprazole IV* 40 MG IV ONE (15:08)
[2018-02-20] MEDS ORDERED: Acetaminophen TAB* 325 MG PO PRN (15:45)
[2018-02-20] MEDS ORDERED: Magnesium Sulfate IV* 3 GM in NS 0.9% 100 ML* 100 ML IVPB ONE (16:06)
[2018-02-20] MEDS: Insulin LISPRO* 1 UNITS UNIT SUBCUT SCH ×2 (18:59→21:15)
[2018-02-20] MEDS: cefTRIAXone(*) 1 GM in NS 0.9% 50 ML* 50 ML IVPB SCH (19:09)
[2018-02-20] MEDS: Albuterol/Ipratropium NEB.SOL* Albuterol 2.5 MG/Ipratropium 0.5 MG 3 ML INH SCH (19:40)
--- NOTE | 2018-02-20 20:56 | HP ---
CC: Dr. Neena Moyer; Dr. Horton * HISTORY AND PHYSICAL: DATE OF ADMISSION: 02/20/18 TIME OF EVALUATION: 3:30 p.m. PRIMARY CARE PROVIDER: Dr. Neena Moyer. IRRIGATION PUMP INSTALLER: Dr. Horton. CHIEF COMPLAINT: Shortness of breath. HISTORY OF PRESENT ILLNESS: Ms. Hansen is a 77-year-old lady with a past medical history of type 2 diabetes; systolic congestive heart failure with ejection fraction 40% to 45%; CKD, stage 2; hypertension; hyperlipidemia; COPD, on 2 L of oxygen at home; obstructive sleep apnea, not on CPAP; spinal stenosis ; obesity, who presents to the emergency room with complaints of severe shortness of breath. The patient states that 6 days ago, she felt she was coming down with a cold or maybe had allergies and she felt nasal congestion and postnasal drip. She had an appointment with her die repairer trimmer dies that day and she states "they told my lungs were clear." She states that 4 days ago, the symptoms persisted and she started to have some shortness of breath. She states that over the weekend, the dyspnea continued to worsen. She developed lower extremity edema and her plan was to call her primary care provider today for an appointment, but when she woke up, the shortness of breath was severe, associated with a sensation of tightening of her chest, so she came to the emergency room. She was brought in my EMS, found to be in respiratory distress and she required BiPAP. At the time of this interview, the patient had already received nebulizer treatment, steroids, and diuretics, and she stated she was feeling much better, but still had BiPAP on. She denies fever, chills. She states she had no change in her usual cough, usually dry and sometimes with scant whitish sputum. No nausea, vomiting, diarrhea, chest or abdominal pain. She states that she does not check her weight at home, but she did notice more lower extremity edema. She denies any dietary extravagances. She states that her is responsible for the cooking and they both follow a low- salt diet. There are no sick contacts at home. PAST MEDICAL HISTORY: 1. Type 2 diabetes. 2. Cardiomyopathy with ejection fraction of 40% to 45% in April 2017. 3. Systolic congestive heart failure. 4. CKD, stage 2, with diabetic nephropathy. 5. COPD, on home O2, 2 L continuously. 6. Hypertension. 7. Hyperlipidemia. 8. Obstructive sleep apnea, on CPAP. 9. Obesity with a BMI of 37. 10. Spinal stenosis. PAST SURGICAL HISTORY: 1. Status post cataract surgery. 2. Status post hernia repair. 3. Status post hysterectomy. 4. Status post rotator cuff repair. 5. Status post carpal tunnel release. 6. Status post ORIF of the left foot. MEDICATIONS: Medication list not available at this time, but will be reconciled by nursing. ALLERGIES: With CAPTOPRIL, the patient had hives. FAMILY HISTORY: Father and mother have type 2 diabetes. SOCIAL HISTORY: She is a former smoker. No history of alcohol or drug use. Surrogate decision maker is her , Alejandro Hansen. Phone number is [phone]. REVIEW OF SYSTEMS: A 14-point review of systems was performed and all the pertinent negative and positive findings are in the HPI. PHYSICAL EXAMINATION GENERAL: The patient is a pleasant, obese, lady, sitting up in the ED stretcher, in no acute distress. VITAL SIGNS: Temperature 98.3, heart rate is 85, respiratory rate is 20, oxygen saturation is 97% on BiPAP, blood pressure is 123/79. HEENT: Pupils are equal. There is no JVD. CHEST: Breath sounds present bilaterally with bibasilar crackles. Breath sounds are diminished and at this time, she has no wheezing. CVS: Normal S1 and S2. Regular rate and rhythm. ABDOMEN: Obese, soft, nontender. Bowel sounds are present. EXTREMITIES: There is bilateral lower extremity pitting edema, mild to moderate. DIAGNOSTIC STUDIES/LAB DATA: The patient had a CBC that showed WBC of 6.6, hemoglobin 9.4, hematocrit 30, platelet count of 125 with 69% neutrophils. INR is 1.02. APTT is 32.3. ABG showed a pH of 7.36 with a CO2 of 61, PO2 of 193, bicarb was 30, oxygen saturation 100% on BiPAP. Chemistry showed a sodium of 142, potassium 3.7, chloride of 102, bicarb of 34, BUN of 17, creatinine of 0.98, glucose of 166, lactic acid of 0.7, calcium of 8.4, magnesium of 1.4. LFTs are normal except for alk phos of 116. BNP is 187. Chest x-ray showed interstitial and alveolar edema. EKG done on 02/20/18 at 14:42 showed normal sinus rhythm at 69 beats per minute with T inversions in aVL, normal ST-T in V1, V2, and V3, and this is unchanged when compared to her prior EKG from April 2017. ASSESSMENT AND PLAN: Ms. Hansen is a 77-year-old lady with a past medical history of type 2 diabetes; cardiomyopathy; systolic congestive heart failure with ejection fraction of 40% to 45%; chronic kidney disease, stage 2, with diabetic nephropathy; chronic obstructive pulmonary disease; hypertension; hyperlipidemia; obstructive sleep apnea; spinal stenosis presented to the emergency room with complaints of dyspnea, found to have acute on chronic hypoxic/hypercapnic respiratory failure secondary to chronic obstructive pulmonary disease and congestive heart failure exacerbation. 1. Acute on chronic hypoxemic/hypercapnic respiratory failure. The patient is already on home O2 and her ABG showed elevation of CO2 at 61 with a normal pH of 7.36. She is feeling better now on BiPAP and the etiology appears to be chronic obstructive pulmonary disease and congestive heart failure exacerbation. 2. Acute chronic obstructive pulmonary disease exacerbation. Suspect her symptoms probably started with a viral infection that probably by now has progressed to bacterial one. With the progression of her chronic obstructive pulmonary disease exacerbation, I believe the patient then developed congestive heart failure exacerbation causing the acute worsening of her dyspnea this morning, prompting her ED visit. She will be continued on BiPAP. She will receive ceftriaxone, Zithromax, steroids and bronchodilators. She may qualify for BiPAP as outpatient considering her chronic hypercapnia. She may benefit an evaluation by Dr. Jackman. 3. Acute systolic congestive heart failure exacerbation. Suspect this was driven by her chronic obstructive pulmonary disease exacerbation. The patient will be diuresed and we will monitor I's and O's and daily weights. 4. Type 2 diabetes. The patient will be n.p.o. for now while she is on BiPAP. We are going to continue Lantus and lispro sliding scale. 5. DVT prophylaxis. The patient has a score of 5 and she will be started on subcutaneous heparin. We should avoid SCDs due to her lower extremity edema and congestive heart failure. 6. Code status is discussed with the patient and she wishes to be a full code and is agreeable with intubation if needed. TIME SPENT: Approximately 50 minutes was spent with the patient and family interview, medical records review, physical examination to complete this admission, more than half of this time was spent [id number] with the patient and coordination of care. [id number]/[facility] #: [id number] WENDY
[2018-02-20] MEDS ORDERED: Insulin GLARGINE(*) 1 UNITS UNIT SUBCUT SCH (21:00)
[2018-02-20] MEDS: Heparin VIAL(*) 5000 UNITS/ML VIAL (FIVE THOUSAND) SUBCUT SCH (21:16)
[2018-02-20] MEDS: methylPREDNISolone SOD 40 MG* 1 ML VIAL IV SCH (21:16)
[2018-02-21] MEDS: Albuterol/Ipratropium NEB.SOL* Albuterol 2.5 MG/Ipratropium 0.5 MG 3 ML INH SCH ×6 (00:03→19:19)
[2018-02-21] MEDS: Insulin LISPRO* 1 UNITS UNIT SUBCUT SCH ×4 (00:18→16:34)
[2018-02-21] MEDS ORDERED: Calcium Carbonate CHEW TAB* 500 MG (TUMS) PO PRN (04:28)
[2018-02-21] MEDS ORDERED: Calcium Carbonate CHEW TAB* 500 MG (TUMS) ONE (05:18)
[2018-02-21] MEDS: Heparin VIAL(*) 5000 UNITS/ML VIAL (FIVE THOUSAND) SUBCUT SCH ×3 (05:24→21:16)
[2018-02-21] MEDS: Carvedilol TAB* 25 MG PO SCH ×2 (05:43→21:15)
[2018-02-21 05:57] LABS: Hematocrit 30 % (35-47); Hemoglobin 9.1 g/dl (12.0-16.0); Mean Corpuscular HGB Conc 31 g/dl (31-36); Mean Corpuscular Hemoglobin 22 pg (27-31); Mean Corpuscular Volume 72 fL (80-97); Red Blood Count 4.11 10^6/ul (4.00-5.40); Red Cell Distribution Width 23 % (10.5-15); White Blood Count 6.6 10^3/ul (3.5-10.8)
[2018-02-21 06:04] LABS: EGFR Non-African American 51.5 (>60)
[2018-02-21 06:27] LABS: ABS Neutrophils 4.8 10^3/ul (1.5-7.7); Platelet Count 109 10^3/ul (150-450)
[2018-02-21] MEDS ORDERED: hydrALAZINE IV* 20 MG/ML VIAL ONE (06:45)
[2018-02-21] MEDS: hydrALAZINE IV* 20 MG/ML VIAL IV SLOW PU PRN (06:46)
[2018-02-21] MEDS ORDERED: Metolazone TAB* 5 MG PO ONE (07:22)
--- NOTE | 2018-02-21 07:37 | PN ---
Subjective Date of Service: 02/21/18 Interval History: Was taken off bipap last night around 8pm and slept well on 2L O2 until 7am, when she became short of breath again and was placed back on bipap. She continues to feel short of breath. HTN was noted overnight. Crespo was placed due to respiratory distress and inability to get up to use the bathroom. No chest pain. Objective Active Medications: Acetaminophen (Tylenol Tab*) 650 mg PO Q6H PRN PRN Reason: pain/fever Albuterol/Ipratropium (Duoneb (Albuterol 2.5 Mg/Ipratropium 0.5 Mg)) 1 neb INH [id number] AWAKE [facility] Last Admin: 02/21/18 07:10 Dose: 1 neb Calcium Carbonate (Tums*) 500 mg PO Q4H PRN PRN Reason: INDIGESTION Last Admin: 02/21/18 05:23 Dose: 500 mg Carvedilol (Coreg Tab*) 25 mg PO 0900,2100 [facility] Last Admin: 02/21/18 05:43 Dose: 25 mg Furosemide (Lasix Iv*) 40 mg IV SLOW PU DAILY [facility] Heparin Sodium (Porcine) (Heparin Vial(*)) 5,000 units SUBCUT Q8HR [facility] Last Admin: 02/21/18 05:24 Dose: 5,000 units Hydralazine HCl (Apresoline Iv*) 5 mg IV SLOW PU Q6H PRN PRN Reason: BLOOD PRESSURE Last Admin: 02/21/18 06:46 Dose: 5 mg Ceftriaxone Sodium 1 gm/ (Sodium Chloride) 50 mls @ 200 mls/hr IVPB Q24H [facility] Last Admin: 02/20/18 19:09 Dose: 200 mls/hr Azithromycin 500 mg/ Sodium (Chloride) 250 mls @ 250 mls/hr IVPB Q24H [facility] Insulin Glargine (Lantus(*)) 20 units SUBCUT Q24H [facility] Last Admin: 02/20/18 21:15 Dose: 20 units Insulin Human Lispro (Humalog*) 0 units SUBCUT AC [facility]; Protocol Losartan Potassium (Cozaar Tab*) 50 mg PO BID [facility] Methylprednisolone Sodium Succinate (Solu-Medrol 40 Mg) 40 mg IV Q12H [facility] Last Admin: 02/20/18 21:16 Dose: 40 mg Spironolactone (Aldactone Tab*) 25 mg PO DAILY [facility] Vital Signs - 8 hr 02/20/18 02/21/18 02/21/18 23:32 00:00 00:01 Temperature 97.9 F 97.9 F 97.9 F Pulse Rate 80 78 80 Respiratory 10 17 19 Rate Blood Pressure 181/88 (mmHg) O2 Sat by Pulse 100 100 100 Oximetry 02/21/18 02/21/18 02/21/18 00:30 01:00 01:01 Temperature 97.7 F 97.7 F 97.7 F Pulse Rate 75 81 76 Respiratory 21 17 20 Rate Blood Pressure 171/81 (mmHg) O2 Sat by Pulse 99 100 100 Oximetry 02/21/18 02/21/18 02/21/18 01:55 02:01 03:00 Temperature 97.5 F Pulse Rate 74 Respiratory 17 18 19 Rate Blood Pressure 174/82 (mmHg) O2 Sat by Pulse 100 Oximetry 02/21/18 02/21/18 02/21/18 03:01 04:00 04:01 Temperature 97.3 F 97.3 F Pulse Rate 74 86 Respiratory 20 16 27 Rate Blood Pressure 157/89 180/84 (mmHg) O2 Sat by Pulse 100 100 Oximetry 02/21/18 02/21/18 02/21/18 05:00 05:01 05:16 Temperature 97.7 F 97.7 F Pulse Rate 76 88 Respiratory 20 20 12 Rate Blood Pressure 193/129 191/87 (mmHg) O2 Sat by Pulse 100 100 Oximetry 02/21/18 02/21/18 02/21/18 06:00 07:10 07:11 Temperature 97.9 F Pulse Rate 81 82 82 Respiratory 20 18 18 Rate Blood Pressure 208/96 (mmHg) O2 Sat by Pulse 100 100 100 Oximetry Oxygen Devices in Use Now: BiPAP Appearance: sitting upright in bed on bipap, no distress or accessory respiratory muscles in use, able to speak to me through the mask Eyes: No Scleral Icterus Ears/Nose/Mouth/Throat: NL Teeth, Lips, Gums Neck: - - JVP is difficult to asses due to bipap straps, but I believe JVP is to the mandible while she is sitting upright. Respiratory: - - diffuse expiratory wheezing, decreased breath sounds and wet crackles at the bases Abdominal: - - obese, nontender Lymphatic: No Cervical Adenopathy Skin: No Rash or Ulcers Neurological: Alert and Oriented x 3 Result Diagrams: 02/21/18 05:35 02/21/18 05:35 Microbiology and Other Data: Microbiology 02/20/18 21:00 Nasal Screen MRSA (PCR) - Final Nasal Mrsa Not Detected Assess/Plan/Problems-Billing Assessment: 77 year old lady with HTN, CHF (ef 40-45%), COPD (on 2L home o2 prn) admitted yesterday with shortness of breath after not taking her pills for 5-6 days due to poor appetite. - Patient Problems (1) Acute respiratory failure with hypoxia Current Visit: Yes Status: Acute Code(s): J96.01 - ACUTE RESPIRATORY FAILURE WITH HYPOXIA SNOMED Code(s): 06947448 Comment: stable on bipap I suspect multifactorial etiology--it seems like she became decompensated from a heart failure perspective a week ago and developed abdominal bloating, had poor appetite so did not take her pills, then developed HTN urgency and pulmonary edema, decompensated heart failure, and a copd exacerbation. She has clear evidence of volume overload and bronchospasm on exam She needs better BP control--I am adding back her home losartan and spironolactone, along with adding metolazone prior to lasix for more aggresive diuresis today Baseline is 2L O2 PRN at home (2) Acute hypercapnic respiratory failure Current Visit: Yes Status: Acute Code(s): J96.02 - ACUTE RESPIRATORY FAILURE WITH HYPERCAPNIA SNOMED Code(s): 316961317 Comment: stable on bipap, mentating very appropriately (3) COPD (chronic obstructive pulmonary disease) Current Visit: No Status: Chronic Code(s): J44.9 - CHRONIC OBSTRUCTIVE PULMONARY DISEASE, UNSPECIFIED SNOMED Code(s): 31647006 Comment: In acute exacerbation, resulting in hypercapnea as above. Solumedrol. Duonebs PRN. Ceftriaxone and Azithromycin. (4) Chronic combined systolic and diastolic CHF (congestive heart failure) Current Visit: No Status: Chronic Code(s): I50.42 - CHRONIC COMBINED SYSTOLIC AND DIASTOLIC HRT FAIL SNOMED Code(s): 328560103661945 Comment: Acute on Chronic, resulting in hypoxia, as above. NICM, EF 40-45% on echo from 04/2017. Cardiac Cath normal in 2017. Increase diuresis. (5) Obesity (BMI 30-39.9) Current Visit: No Status: Acute Code(s): E66.9 - OBESITY, UNSPECIFIED SNOMED Code(s): 954646440 (6) Stage III chronic kidney disease Current Visit: No Status: Chronic Code(s): N18.3 - CHRONIC KIDNEY DISEASE, STAGE 3 (MODERATE) SNOMED Code(s): 464419495 Comment: at baseline due to DM nephropathy (7) Type 2 diabetes mellitus Current Visit: No Status: Chronic Comment: continue lantus/lispro currently at reduced dose due to poor po intake but poorly controlled; will follow BGs today and increase doses Status and Disposition: Inpatient requiring ICU level of care.
[2018-02-21] MEDS: methylPREDNISolone SOD 40 MG* 1 ML VIAL IV SCH ×2 (07:41→21:16)
[2018-02-21] MEDS: Spironolactone TAB* 25 MG PO SCH ×2 (07:54→08:31)
[2018-02-21] MEDS: Losartan TAB* 25 MG PO SCH ×2 (07:54→21:15)
[2018-02-21] MEDS: Furosemide IV* 10 MG/ML VIAL (40 MG) IV SLOW PU SCH (08:31)
[2018-02-21] MEDS: [UNRECOGNIZED DRUG - OTHER] PO PRN ×2 (11:00→14:43)
[2018-02-21] MEDS ORDERED: NIFEdipine CAP* 10 MG PO SCH (14:00)
[2018-02-21] MEDS: Azithromycin IV(*) 500 MG in NS 0.9% 250 ML* 250 ML IVPB SCH (14:32)
[2018-02-21] MEDS: cefTRIAXone(*) 1 GM in NS 0.9% 50 ML* 50 ML IVPB SCH (17:10)
[2018-02-21] MEDS: Insulin GLARGINE(*) 1 UNITS UNIT SUBCUT SCH (18:13)
[2018-02-21] MEDS ORDERED: Albuterol/Ipratropium NEB.SOL* Albuterol 2.5 MG/Ipratropium 0.5 MG 3 ML INH PRN (19:18)
[2018-02-21] MEDS: Potassium Chlor TAB* 20 MEQ TAB.ER PO SCH (21:19)
[2018-02-22] MEDS: Heparin VIAL(*) 5000 UNITS/ML VIAL (FIVE THOUSAND) SUBCUT SCH ×3 (06:19→21:08)
[2018-02-22 06:46] LABS: Hematocrit 28 % (35-47); Hemoglobin 8.6 g/dl (12.0-16.0); Mean Corpuscular HGB Conc 31 g/dl (31-36); Mean Corpuscular Hemoglobin 22 pg (27-31); Mean Corpuscular Volume 71 fL (80-97); Red Blood Count 3.88 10^6/ul (4.00-5.40); Red Cell Distribution Width 22 % (10.5-15); White Blood Count 7.2 10^3/ul (3.5-10.8)
[2018-02-22 07:02] LABS: EGFR Non-African American 49.3 (>60)
[2018-02-22 07:46] LABS: ABS Basophils 0 10^3/ul (0-0.2); ABS Neutrophils 5.3 10^3/ul (1.5-7.7); ABS Neutrophils 5.6 10^3/ul (1.5-7.7); Monocytes % 5 % (0-7); Platelet Count 110 10^3/ul (150-450); Schistocytes 1+
[2018-02-22] MEDS: [UNRECOGNIZED DRUG - OTHER] PO PRN ×2 (08:22→15:02)
[2018-02-22] MEDS: Carvedilol TAB* 25 MG PO SCH ×2 (08:43→21:08)
[2018-02-22] MEDS: methylPREDNISolone SOD 40 MG* 1 ML VIAL IV SCH ×2 (08:43→21:07)
[2018-02-22] MEDS: Potassium Chlor TAB* 20 MEQ TAB.ER PO SCH ×2 (08:43→21:08)
[2018-02-22] MEDS: Spironolactone TAB* 25 MG PO SCH (08:43)
[2018-02-22] MEDS: Furosemide IV* 10 MG/ML VIAL (40 MG) IV SLOW PU SCH (08:43)
[2018-02-22] MEDS: Insulin GLARGINE(*) 1 UNITS UNIT SUBCUT SCH ×2 (08:44→18:05)
[2018-02-22] MEDS: Insulin LISPRO* 1 UNITS UNIT SUBCUT SCH ×3 (08:44→18:05)
[2018-02-22] MEDS: Losartan TAB* 25 MG PO SCH ×2 (08:44→21:07)
--- NOTE | 2018-02-22 14:17 | PN ---
Subjective Date of Service: 02/22/18 Interval History: Weaned down to 2L O2. Her is here visiting. She feels much better. She is sitting up in the chair and has been walking to the door and to the bathroom and feels good. No shortness of breath, no orthopnea, no chest pain. Objective Active Medications: Acetaminophen (Tylenol Tab*) 650 mg PO Q6H PRN PRN Reason: pain/fever Albuterol/Ipratropium (Duoneb (Albuterol 2.5 Mg/Ipratropium 0.5 Mg)) 1 neb INH Q4H PRN PRN Reason: SOB/WHEEZING Calcium Carbonate (Tums*) 500 mg PO Q4H PRN PRN Reason: INDIGESTION Last Admin: 02/21/18 05:23 Dose: 500 mg Carvedilol (Coreg Tab*) 25 mg PO 0900,2100 [facility] Last Admin: 02/22/18 08:43 Dose: 25 mg Heparin Sodium (Porcine) (Heparin Vial(*)) 5,000 units SUBCUT Q8HR [facility] Last Admin: 02/22/18 13:06 Dose: 5,000 units Hydralazine HCl (Apresoline Iv*) 5 mg IV SLOW PU Q6H PRN PRN Reason: BLOOD PRESSURE Last Admin: 02/21/18 06:46 Dose: 5 mg Ceftriaxone Sodium 1 gm/ (Sodium Chloride) 50 mls @ 200 mls/hr IVPB Q24H [facility] Last Admin: 02/21/18 17:10 Dose: 200 mls/hr Azithromycin 500 mg/ Sodium (Chloride) 250 mls @ 250 mls/hr IVPB Q24H [facility] Last Admin: 02/21/18 14:32 Dose: 250 mls/hr Insulin Glargine (Lantus(*)) 60 units SUBCUT QPM [facility] Last Admin: 02/21/18 18:13 Dose: 60 unit Insulin Glargine (Lantus(*)) 80 units SUBCUT QAM [facility] Last Admin: 02/22/18 08:44 Dose: 80 unit Insulin Human Lispro (Humalog*) 0 units SUBCUT AC [facility]; Protocol Last Admin: 02/22/18 13:06 Dose: 9 unit Losartan Potassium (Cozaar Tab*) 50 mg PO BID [facility] Last Admin: 02/22/18 08:44 Dose: 50 mg Methylprednisolone Sodium Succinate (Solu-Medrol 40 Mg) 40 mg IV Q12H [facility] Last Admin: 02/22/18 08:43 Dose: 40 mg Pto:Lavelle (Original) 1 admin PO DAILY PRN PRN Reason: NEEDED FOR INDIGESTION Last Admin: 02/22/18 08:22 Dose: 1 admin Potassium Chloride (Klor Con Er Tab*) 20 meq PO BID [facility] Last Admin: 02/22/18 08:43 Dose: 20 meq Spironolactone (Aldactone Tab*) 25 mg PO DAILY [facility] Last Admin: 02/22/18 08:43 Dose: 25 mg Oxygen Devices in Use Now: None Appearance: well appearing, sitting comfortably in chair Eyes: No Scleral Icterus Ears/Nose/Mouth/Throat: NL Teeth, Lips, Gums Neck: - - +JVP to 12 cm Respiratory: Symmetrical Chest Expansion and Respiratory Effort, Clear to Auscultation, - - crackles b/l bases Cardiovascular: No Edema Abdominal: NL Sounds; No Tenderness; No Distention Lymphatic: No Cervical Adenopathy Extremities: No Edema Skin: No Rash or Ulcers Neurological: Alert and Oriented x 3 Result Diagrams: 02/22/18 06:04 02/22/18 06:04 Microbiology and Other Data: Microbiology 02/20/18 21:00 Nasal Screen MRSA (PCR) - Final Nasal Mrsa Not Detected Assess/Plan/Problems-Billing Assessment: 77 year old lady with HTN, CHF (ef 40-45%), COPD (on 2L home o2 prn) admitted yesterday with shortness of breath after not taking her pills for 5-6 days due to poor appetite. - Patient Problems (1) Acute respiratory failure with hypoxia Current Visit: Yes Status: Acute Code(s): J96.01 - ACUTE RESPIRATORY FAILURE WITH HYPOXIA SNOMED Code(s): 26869904 Comment: Now down to her home O2 requirement of 2L (uses PRN) I suspect multifactorial etiology--it seems like she became decompensated from a heart failure perspective a week ago and developed abdominal bloating, had poor appetite so did not take her pills, then developed HTN urgency and pulmonary edema, decompensated heart failure, and a copd exacerbation. She has clear evidence of volume overload and bronchospasm on exam She is markedly improved with better BP control (2) Acute hypercapnic respiratory failure Current Visit: Yes Status: Acute Code(s): J96.02 - ACUTE RESPIRATORY FAILURE WITH HYPERCAPNIA SNOMED Code(s): 850838571 Comment: improved after bipap at admission (3) COPD (chronic obstructive pulmonary disease) Current Visit: No Status: Chronic Code(s): J44.9 - CHRONIC OBSTRUCTIVE PULMONARY DISEASE, UNSPECIFIED SNOMED Code(s): 66595661 Comment: In acute exacerbation, resulting in hypercapnea as above. Solumedrol. Duonebs PRN. Azithromycin. I am Dc'ing ceftriaxone. (4) Chronic combined systolic and diastolic CHF (congestive heart failure) Current Visit: No Status: Chronic Code(s): I50.42 - CHRONIC COMBINED SYSTOLIC AND DIASTOLIC HRT FAIL SNOMED Code(s): 337047713692059 Comment: Acute on Chronic, resulting in hypoxia, as above. NICM, EF 40-45% on echo from 04/2017. Cardiac Cath normal in 2017. Diuresing well but still about 5 lbs above her dry weight. (5) Obesity (BMI 30-39.9) Current Visit: No Status: Acute Code(s): E66.9 - OBESITY, UNSPECIFIED SNOMED Code(s): 356526008 (6) Stage III chronic kidney disease Current Visit: No Status: Chronic Code(s): N18.3 - CHRONIC KIDNEY DISEASE, STAGE 3 (MODERATE) SNOMED Code(s): 274864986 Comment: at baseline due to DM nephropathy (7) Type 2 diabetes mellitus Current Visit: No Status: Chronic Comment: continue lantus/lispro at home dose Status and Disposition: Remove boggs for voiding trial, continue diuresis, expected discharge to home tomorrow, discussed with her and her .
[2018-02-22] MEDS: Azithromycin IV(*) 500 MG in NS 0.9% 250 ML* 250 ML IVPB SCH (15:02)
[2018-02-22] MEDS ORDERED: Bumetanide TAB* 2 MG PO SCH (21:00)
[2018-02-22] MEDS: Ferrous Gluconate TAB* 324 MG TAB PO SCH (21:08)
[2018-02-23] MEDS: hydrALAZINE IV* 20 MG/ML VIAL IV SLOW PU PRN ×2 (03:30→23:21)
[2018-02-23] MEDS ORDERED: Nitroglycerin TAB 0.4 MG* 0.4 MG TAB SL ONE (04:58)
[2018-02-23] MEDS ORDERED: Aspirin 81 mg CHEW TAB* 81 MG TAB.CHEW PO ONE (04:58)
[2018-02-23] MEDS ORDERED: Aspirin 81 mg CHEW TAB* 81 MG TAB.CHEW ONE (05:10)
[2018-02-23] MEDS: Levothyroxine TAB* 25 MCG TAB PO SCH (06:17)
[2018-02-23] MEDS: Heparin VIAL(*) 5000 UNITS/ML VIAL (FIVE THOUSAND) SUBCUT SCH ×3 (06:17→20:30)
[2018-02-23 06:27] LABS: EGFR Non-African American 58.6 (>60)
[2018-02-23 06:47] LABS: Hematocrit 28 % (35-47); Hemoglobin 8.8 g/dl (12.0-16.0); Mean Corpuscular HGB Conc 31 g/dl (31-36); Mean Corpuscular Hemoglobin 22 pg (27-31); Mean Corpuscular Volume 71 fL (80-97); Red Blood Count 3.95 10^6/ul (4.00-5.40); Red Cell Distribution Width 22 % (10.5-15); White Blood Count 7.7 10^3/ul (3.5-10.8)
[2018-02-23 07:48] LABS: Mean Platelet Volume 9.1 um3 (7.4-10.4); Platelet Count 114 10^3/ul (150-450)
--- NOTE | 2018-02-23 07:57 | RAD ---
INDICATION: Chest pain COMPARISON: Most recent comparison chest x-rays dated February 20, 2018 TECHNIQUE: Single AP portable view of the chest was obtained. FINDINGS: Image quality is compromised due to the relative inferiority of a portable chest x-ray. Again seen is mild cardiomegaly. The contours of the mediastinum are otherwise normal. There are patchy densities overlying the bilateral lung bases obscuring the bilateral hemidiaphragm and causing bilateral costophrenic angle blunting. Overall the degree of aeration is improved when compared to February 20, 2018. Visualized bones are normal for the patient's age. IMPRESSION: Chest x-ray findings are most consistent with persistent cardiogenic pulmonary edema, possibly with bibasilar pleural effusions, but aeration is overall improved when compared to the February 20, 2018 chest x-ray.
[2018-02-23 07:58] LABS: ABS Basophils 0 10^3/ul (0-0.2); ABS Neutrophils 6.3 10^3/ul (1.5-7.7); Monocytes % 2 % (0-7); Schistocytes 1+
[2018-02-23] MEDS: Losartan TAB* 25 MG PO SCH ×2 (08:43→20:30)
[2018-02-23] MEDS: Bumetanide TAB* 2 MG PO SCH ×2 (08:43→20:31)
[2018-02-23] MEDS: Atorvastatin* 10 MG TAB PO SCH (08:45)
[2018-02-23] MEDS: Carvedilol TAB* 25 MG PO SCH ×2 (08:45→20:32)
[2018-02-23] MEDS: Potassium Chlor TAB* 20 MEQ TAB.ER PO SCH ×2 (08:46→20:31)
[2018-02-23] MEDS: Spironolactone TAB* 25 MG PO SCH (08:47)
[2018-02-23] MEDS: Insulin GLARGINE(*) 1 UNITS UNIT SUBCUT SCH ×2 (08:48→17:25)
[2018-02-23] MEDS: methylPREDNISolone SOD 40 MG* 1 ML VIAL IV SCH ×2 (08:49→20:30)
[2018-02-23] MEDS: Insulin LISPRO* 1 UNITS UNIT SUBCUT SCH ×3 (08:49→17:25)
[2018-02-23] MEDS: Ferrous Gluconate TAB* 324 MG TAB PO SCH ×3 (09:41→20:31)
[2018-02-23] MEDS: Nitroglycerin TAB 0.4 MG* 0.4 MG TAB SL PRN (12:01)
[2018-02-23] MEDS: Azithromycin IV(*) 500 MG in NS 0.9% 250 ML* 250 ML IVPB SCH (14:51)
--- NOTE | 2018-02-23 16:22 | PN ---
Subjective Date of Service: 02/23/18 Interval History: Pt seen and examined. Meds and labs reviewed. CC: N/A ROS: Denied REED/dizziness, F/C, N/V, CP, SOB, increased cough, sputum production , abd pain, diarrhea, constipation, dysuria, myalgias, arthralgias, throat pain , and new skin lesions. The rest of the 14 point ROS are unremarkable. PHYSICAL EXAM: GEN APPEARANCE: Awake, not in acute distress HEENT: NC/AT, PERRLA, moist oral mucosa, (-) throat erythema NECK: Soft, supple, (-) cervical LAD, (-)JVD HEART: S1S2 WNL, RRR, No MRG CHEST: Bibasal crackles, GAE, No W/R/R ABD: Soft, ND/NT, NABS 4x Q EXT: No C/C/BLLE +1, with evidence of chronic venous stasis changes SKIN: Warm to touch PSYCH: No active psychosis, hallucinations, depression, SI/HI Objective Active Medications: Acetaminophen (Tylenol Tab*) 650 mg PO Q6H PRN PRN Reason: pain/fever Albuterol/Ipratropium (Duoneb (Albuterol 2.5 Mg/Ipratropium 0.5 Mg)) 1 neb INH Q4H PRN PRN Reason: SOB/WHEEZING Last Admin: 02/23/18 04:41 Dose: 1 neb Atorvastatin Calcium (Lipitor*) 10 mg PO DAILY [facility] Last Admin: 02/23/18 08:45 Dose: 10 mg Bumetanide (Bumex Tab*) 2 mg PO BID [facility] Last Admin: 02/23/18 08:43 Dose: 2 mg Calcium Carbonate (Tums*) 500 mg PO Q4H PRN PRN Reason: INDIGESTION Last Admin: 02/21/18 05:23 Dose: 500 mg Carvedilol (Coreg Tab*) 25 mg PO 0900,2100 [facility] Last Admin: 02/23/18 08:45 Dose: 25 mg Ferrous Gluconate (Fergon Tab*) 324 mg PO BID [facility] Last Admin: 02/23/18 09:41 Dose: 324 mg Heparin Sodium (Porcine) (Heparin Vial(*)) 5,000 units SUBCUT Q8HR [facility] Last Admin: 02/23/18 14:51 Dose: 5,000 units Hydralazine HCl (Apresoline Iv*) 5 mg IV SLOW PU Q6H PRN PRN Reason: BLOOD PRESSURE Last Admin: 02/23/18 03:30 Dose: 5 mg Azithromycin 500 mg/ Sodium (Chloride) 250 mls @ 250 mls/hr IVPB Q24H [facility] Last Admin: 02/23/18 14:51 Dose: 250 mls/hr Insulin Glargine (Lantus(*)) 60 units SUBCUT QPM [facility] Last Admin: 02/22/18 18:05 Dose: 60 unit Insulin Glargine (Lantus(*)) 80 units SUBCUT QAM [facility] Last Admin: 02/23/18 08:48 Dose: 80 unit Insulin Human Lispro (Humalog*) 0 units SUBCUT AC [facility]; Protocol Last Admin: 02/23/18 12:36 Dose: 6 unit Levothyroxine Sodium (Synthroid Tab*) 25 mcg PO DAILY@0600 [facility] Last Admin: 02/23/18 06:17 Dose: 25 mcg Losartan Potassium (Cozaar Tab*) 50 mg PO BID [facility] Last Admin: 02/23/18 08:43 Dose: 50 mg Methylprednisolone Sodium Succinate (Solu-Medrol 40 Mg) 40 mg IV Q12H [facility] Last Admin: 02/23/18 08:49 Dose: 40 mg Nitroglycerin (Nitroglycerin Tab 0.4 Mg*) 0.4 mg SL Q5M PRN PRN Reason: ANGINA Last Admin: 02/23/18 12:01 Dose: 0.4 mg Pto:Esme-Yuniel (Original) 1 admin PO DAILY PRN PRN Reason: NEEDED FOR INDIGESTION Last Admin: 02/22/18 15:02 Dose: 1 admin Potassium Chloride (Klor Con Er Tab*) 20 meq PO BID [facility] Last Admin: 02/23/18 08:46 Dose: 20 meq Spironolactone (Aldactone Tab*) 25 mg PO DAILY [facility] Last Admin: 02/23/18 08:47 Dose: 25 mg Vital Signs - 8 hr 02/23/18 12:20 Temperature 98.7 F Pulse Rate 64 Respiratory 18 Rate Blood Pressure 127/51 (mmHg) O2 Sat by Pulse 97 Oximetry Oxygen Devices in Use Now: Nasal Cannula Result Diagrams: 02/23/18 05:51 02/23/18 05:51 Microbiology and Other Data: Microbiology 02/20/18 21:00 Nasal Screen MRSA (PCR) - Final Nasal Mrsa Not Detected Assess/Plan/Problems-Billing Assessment: 77 year old lady with HTN, CHF (ef 40-45%), COPD (on 2L home o2 prn) admitted yesterday with shortness of breath after not taking her pills for 5-6 days due to poor appetite. - Patient Problems (1) Acute respiratory failure with hypoxia Current Visit: Yes Status: Acute Code(s): J96.01 - ACUTE RESPIRATORY FAILURE WITH HYPOXIA SNOMED Code(s): 97740146 Comment: -Now down to her home O2 requirement of 2L (uses PRN) -Multifactorial etiology--Likely became decompensated from a heart failure perspective a week ago and developed abdominal bloating, had poor appetite so did not take her pills, then developed HTN urgency and pulmonary edema, decompensated heart failure, and a copd exacerbation. -She has clear evidence of volume overload and bronchospasm on exam -She is markedly improved with better BP control -Will place pt on Low sodium diet -Advised improved compliance with both diet and therapeutics -EKG shows no acute change and CXR shows improvement (2) Acute hypercapnic respiratory failure Current Visit: Yes Status: Acute Code(s): J96.02 - ACUTE RESPIRATORY FAILURE WITH HYPERCAPNIA SNOMED Code(s): 583631719 Comment: -Resolved (3) COPD exacerbation Current Visit: Yes Status: Acute Code(s): J44.1 - CHRONIC OBSTRUCTIVE PULMONARY DISEASE W (ACUTE) EXACERBATION SNOMED Code(s): 905788109 Comment: -In acute exacerbation, resulting in hypercapnea as above. -Solumedrol. Duonebs PRN. Azithromycin, day #2. (4) Chronic combined systolic and diastolic CHF (congestive heart failure) Current Visit: No Status: Chronic Code(s): I50.42 - CHRONIC COMBINED SYSTOLIC AND DIASTOLIC HRT FAIL SNOMED Code(s): 255433660806636 Comment: Acute on Chronic, resulting in hypoxia, as above. NICM, EF 40-45% on echo from 04/2017. Cardiac Cath normal in 2017. Diuresing well but still about 5 lbs above her dry weight. 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
[2018-02-24] MEDS: Heparin VIAL(*) 5000 UNITS/ML VIAL (FIVE THOUSAND) SUBCUT SCH ×2 (05:06→14:29)
[2018-02-24] MEDS: Levothyroxine TAB* 25 MCG TAB PO SCH (05:07)
[2018-02-24 09:57] LABS: Hematocrit 29 % (35-47); Hemoglobin 9.2 g/dl (12.0-16.0); Mean Corpuscular HGB Conc 32 g/dl (31-36); Mean Corpuscular Hemoglobin 23 pg (27-31); Mean Corpuscular Volume 71 fL (80-97); Red Blood Count 4.05 10^6/ul (4.00-5.40); Red Cell Distribution Width 22 % (10.5-15); White Blood Count 7.3 10^3/ul (3.5-10.8)
[2018-02-24] MEDS: Insulin LISPRO* 1 UNITS UNIT SUBCUT SCH ×2 (09:57→12:17)
[2018-02-24] MEDS: Potassium Chlor TAB* 20 MEQ TAB.ER PO SCH (10:08)
[2018-02-24] MEDS: Ferrous Gluconate TAB* 324 MG TAB PO SCH (10:08)
[2018-02-24] MEDS: Spironolactone TAB* 25 MG PO SCH (10:08)
[2018-02-24] MEDS: Carvedilol TAB* 25 MG PO SCH (10:08)
[2018-02-24] MEDS: Losartan TAB* 25 MG PO SCH (10:08)
[2018-02-24] MEDS: Bumetanide TAB* 2 MG PO SCH (10:08)
[2018-02-24] MEDS: Atorvastatin* 10 MG TAB PO SCH (10:08)
[2018-02-24] MEDS: methylPREDNISolone SOD 40 MG* 1 ML VIAL IV SCH (10:09)
[2018-02-24 10:18] LABS: EGFR Non-African American 53.3 (>60)
[2018-02-24] MEDS: Insulin GLARGINE(*) 1 UNITS UNIT SUBCUT SCH (10:19)
[2018-02-24 10:40] LABS: ABS Basophils 0 10^3/ul (0-0.2); ABS Neutrophils 6.5 10^3/ul (1.5-7.7); Monocytes % 3 % (0-7); Schistocytes 1+
[2018-02-24 10:41] LABS: Mean Platelet Volume 8.8 um3 (7.4-10.4); Platelet Count 97 10^3/ul (150-450)
[2018-02-24] MEDS ORDERED: Acetylcysteine CAP (RENAL)* 600 MG PO SCH (12:00)
[2018-02-24] MEDS ORDERED: Iodixanol* (CONTRAST) 320 MG/ML 100 ML SDV IV ONE (13:30)
--- NOTE | 2018-02-24 14:22 | RAD ---
INDICATION: Chest pain, shortness of breath, elevated d-dimer. COMPARISON: February 23, 2018 chest radiograph and May 09, 2017 CT. TECHNIQUE: Multidetector CT images were obtained from the lung apices to the upper abdomen with 87 mL Visipaque 320 IV contrast. Pulmonary angiogram protocol. Multiplanar reformation including with maximum intensity projection. REPORT: Small dependent RIGHT pleural effusion with proportional compressive atelectasis. Subtle thickened peripheral interlobular septa. The lungs are otherwise grossly clear. Negative for pneumothorax. Negative for thoracic lymphadenopathy. Cardiomegaly. Physiologic small volume of pericardial fluid without change. Normal diameter thoracic aorta. No filling defects are identified from the main to the subsegmental pulmonary arteries to indicate presence of a pulmonary embolism. Images through the upper abdomen are remarkable for nodular surface contour of the liver and large spleen favoring cirrhosis with portal hypertension. Negative for suspicious thoracic osseous lesions. IMPRESSION: #. No evidence for pulmonary embolism. #. Probable mild interstitial pulmonary edema. #. Small dependent RIGHT pleural effusion with proportional basilar atelectasis. #. Stigmata of probable hepatic cirrhosis and portal hypertension.
[2018-02-24] MEDS: Azithromycin IV(*) 500 MG in NS 0.9% 250 ML* 250 ML IVPB SCH (14:31)
[2018-02-24] MEDS: Nitroglycerin TAB 0.4 MG* 0.4 MG TAB SL PRN ×2 (14:55→15:48)
[2018-02-24 17:40] VITALS: BP 148/70
[2018-02-25] MEDS ORDERED: Spironolactone TAB* 25 MG PO SCH ×2 (09:00)
[2018-02-25] MEDS ORDERED: Bumetanide TAB* 2 MG PO SCH (09:00)
--- NOTE | 2018-02-25 15:30 | DS ---
CC: Dr. Stacie Adams; Dr. Manuel Gil; Dr. Neena Moyer; Dr. Horton.* DISCHARGE SUMMARY: DATE OF ADMISSION: 02/20/18 DATE OF DISCHARGE: 02/24/18. DISCHARGE DIAGNOSES: As follows: 1. Acute respiratory failure with hypoxia. Multifactorial in etiology due to decompensated heart failure as well as chronic obstructive pulmonary disease exacerbation with possible bronchospasm due to bronchitis. 2. Acute hypercapnic respiratory failure secondary to chronic obstructive pulmonary disease exacerbation. 3. Chronic combined systolic and diastolic congestive heart failure. 4. History of obesity. 5. Stage 3 chronic kidney disease. 6. Diabetes mellitus. 7. Chest pain, reproducible, likely noncardiac. DISCHARGE MEDICATIONS: As follows: 1. Acetylcysteine 1200 mg p.o. b.i.d. for 2 days. 2. Bumetanide 2 mg p.o. b.i.d. although she was advised to take bumetanide daily for the next 3 days and resume b.i.d. dosing given increasing BUN as well as contraction alkalosis. 3. Ferrous gluconate 325 mg p.o. b.i.d. 4. Insulin glargine 80 units subcu q.a.m. 5. Insulin glargine 60 units subcu q.p.m. 6. Levothyroxine 25 mcg p.o. daily. 7. Losartan 50 mg p.o. b.i.d. 8. Potassium chloride 20 mEq p.o. b.i.d. 9. Simvastatin 20 mg p.o. daily. 10. Spironolactone 25 mg p.o. daily. 11. Albuterol HFA inhaler 1 puff inhalation q.4 p.r.n. 12. Esme-[place] Heartburn tab 1 tab p.o. q.6 p.r.n. 13. Aspirin 81 mg p.o. daily. 14. Carvedilol 25 mg p.o. b.i.d. 15. Metformin 1000 mg p.o. b.i.d. 16. Multivitamin 1 tab p.o. daily. 17. Nitroglycerin 0.4 mg sublingual q. 5 minutes p.r.n. and the patient is advised to call PCP if her chest pain is unrelieved with the 3rd nitro dose. 18. Prednisone rapid taper as prescribed. 19. Terazosin 10 mg p.o. q.h.s. 20. Triamcinolone 0.1% cream topical. 21. Vitamin B12 1000 mcg p.o. daily. HISTORY OF PRESENT ILLNESS/HOSPITAL COURSE: The patient is 77-year-old - [place] lady with a history of cardiomyopathy with an EF 40% to 45% from an echo done back in April,, type 2 diabetes and history of CHF, both systolic and diastolic dysfunction who presented to the ED on 02/20/18 due to shortness of breath where she was diagnosed with acute and chronic hypoxemic hypercapnic respiratory failure thought to be due to multifactorial cause where she likely became decompensated a few weeks ago and developed abdominal bloating and poor appetite and therefore was not able to take her pills, then developed hypertensive urgency that led to her pulmonary edema and decompensated heart failure and possible bronchitis may have been due to her COPD exacerbation as well. She had been placed on azithromycin as well as diuretics was started and she was diuresed well with her lower extremity edema improving subsequently and placed on a low sodium diet. Subsequently, she then started complaining of chest pain that was reproducible and she has been ruled out for acute coronary syndrome as well as pulmonary embolism being ruled out in the CT angio. Given her rising BUN and creatinine along with what appears to be contraction alkalosis, she has been advised to take bumetanide daily for the next 3 days and to resume b.i.d. dosing and to maintain low sodium diet. She had been advised to follow up and recall her PCP within 3 days post- discharge and she had been informed that her chest CT with contrast did not reveal any PE and improvement of her pulmonary edema. She had been advised that since her chest pain is reproducible on exam and likely musculoskeletal with no EKG changes, her troponins were normal and was not indicative of heart attack. Given her recent stress last year back in April, she had been advised to follow up with her planer chain offbearer and inform him of her most recent discharge to see if he would like another stress test given as an outpatient. If she had been having problems and/or her symptoms worsen, she had been advised to call her PCP first to see if her concerns can be addressed in a timely manner, if not she had been advised to go to the ER due to scheduling issues alone to clarify whether she can be seen in a nonemergent setting and if so to call [facility] if this is deemed appropriate or if she is unable to touch base with her PCP at all. She was advised to call my office regarding any questions, concerns or further clarifications regarding her discharge plans and her prescriptions and was advised to take her medications as prescribed. Subsequently, the RN paged me that the patient refuses to leave given she did not receive her dinner on time and she mentioned that it will be too stressful for her to leave this late afternoon and hence will defer. REVIEW OF SYSTEMS: The patient denied any recent headaches, dizziness, fever, chills, nausea, vomiting, chest pain, shortness of breath, increased cough, no sputum production, abdominal pain, diarrhea, constipation, pain and or increased frequency in urination, myalgias, arthralgias, throat pain or new skin lesions. The rest of the 14-point review of systems are otherwise unremarkable. PHYSICAL EXAMINATION: General Appearance: The patient is awake, alert and oriented x3 not in acute distress. Physical exam reveals the most recent vital signs of records were; 97.8 degrees Fahrenheit temperature, heart rate of 64 beats per minute, 16 per minute respiratory rate, blood pressure of 148/70. HEENT: Normocephalic, atraumatic, PERRLA, extraocular muscles intact. Negative for icterus, moist oral mucosa, negative throat erythema. Neck is supple with no cervical lymphadenopathy. No JVD. Heart: S1, S2 within normal limits. Regular rate and rhythm. No murmurs, rubs or gallops. Chest: Clear to auscultation bilaterally. Good air entry. No wheezes, rales or rhonchi. Abdomen is soft, nondistended, nontender, normoactive bowel sounds x4 to extremities, no cyanosis or clubbing with 1+ bilateral lower extremity edema. Psychiatric: No active psychosis, depression, suicidal, no homicidal ideation. Skin is warm to touch. TIME SPENT: The total time spent evaluating the patient reviewing pertinent data and appropriate documentation is greater than 50 minutes. [id number]/[facility] #: [id number] MTDD
== END 2018-02-24 18:30 | disposition home or self-care (01) | DRG 291 ==
LOC: ED 12:32 → ICU 16:52 → MEDTELE 02-21 17:45
PROVIDERS: ADMIT Internal Medicine; ATTEND Student in an Organized Health Care Education/Training Program
PROC: 5A09357 Assistance with Respiratory Ventilation, Less than 24 Consecutive Hours, Continuous Positive Airway Pressure (ICD-10-PCS; principal; 2018-02-20)
DX: I13.0 Hypertensive heart and chronic kidney disease with heart failure and stage 1 through stage 4 chronic kidney disease, or unspecified chronic kidney disease (principal); J96.21 Acute and chronic respiratory failure with hypoxia; J96.22 Acute and chronic respiratory failure with hypercapnia; I50.43 Acute on chronic combined systolic (congestive) and diastolic (congestive) heart failure; J43.9 Emphysema, unspecified; I42.9 Cardiomyopathy, unspecified; G47.30 Sleep apnea, unspecified; E11.22 Type 2 diabetes mellitus with diabetic chronic kidney disease; J40 Bronchitis, not specified as acute or chronic; R07.89 Other chest pain; N18.3 Chronic kidney disease, stage 3 (moderate); M19.90 Unspecified osteoarthritis, unspecified site; M48.00 Spinal stenosis, site unspecified; E11.21 Type 2 diabetes mellitus with diabetic nephropathy; E66.9 Obesity, unspecified; G47.33 Obstructive sleep apnea (adult) (pediatric); E78.5 Hyperlipidemia, unspecified; Z99.81 Dependence on supplemental oxygen; Z83.3 Family history of diabetes mellitus; Z90.710 Acquired absence of both cervix and uterus; Z98.42 Cataract extraction status, left eye; Z68.35 Body mass index [BMI] 35.0-35.9, adult; Z98.41 Cataract extraction status, right eye; Z82.49 Family history of ischemic heart disease and other diseases of the circulatory system; Z88.8 Allergy status to other drugs, medicaments and biological substances; Z87.891 Personal history of nicotine dependence; Z79.4 Long term (current) use of insulin; Z79.82 Long term (current) use of aspirin
CPT/HCPCS: 36415; 71045; 71275; 80048; 80053; 82803; 83605; 83735; 83880; 84100; 84484; 85025; 85060; 85610; 85730; 87040; 87641; 93005; 94640; 94660; 99285; A9270-GY; G8978-GP-CI; G8979-GP-CI; G8980-GP-CI; J0360; J0456; J0696; J1100; J1644; J1940; J2920; J3475; Q9967

== ENCOUNTER 2018-02-28 10:55 | Emergency (ER) | payer MEDICARE, OTHER ==
--- OUTSIDE RECORDS SUMMARY | 2018-02-28 12:11 | XMS REPORT ---
:1940 External Reference #:[id number] Author Organization [employer] Address [address] [place] [address] [place] [address] Phone [phone] Care Team Providers Name Role Phone Neena Moyer MD Primary Care Physician Unavailable Payers Type Date Identification Numbers Payment Provider Subscriber Medicare Primary Effective: Policy Number: Medicare Erika Hansen 2000 [id number] PayID: [id number] [address] [place] [address] [facility] Part B Effective: Policy Number: [employer] Insurance Erika Plunkett 2006 [id number] [employer] [employer] Number: [id number] [address] PayID: [id number] [place] [address] Problems Date Description Provider Status Onset: 11/02/2013 Essential hypertension Swapnil Horton M.D. Active Onset: 11/02/2013 Primary cardiomyopathy Swapnil Horton M.D. Active Social History Type Date Description Comments Cigarette Use none ETOH Use Denies alcohol use Smoking Patient is a former smoker smoked cigarettes for 40 years, approximately 2 cartons per week (the last 6 years), and quit in 2001 Recreational Drug Use Denies Drug Use Daily Caffeine Consumes on average 1 cup of regular coffee per day Exercise Type/Frequency Does not exercise Allergies, Adverse Reactions, Alerts Date Description Reaction Status Severity Comments 11/02/2013 Captopril rash active Medications Medication Date Status Form Strength Qnty SIG Indications Ordering Provider Metformin HCL 00/00/ Active Tablets 500mg 60tab 2 po qam, Unknown 0000 s 2 po qpm Glyburide / Active Tablets 5mg 30tab 2 tabs by Unknown 0000 s mouth twice a day Losartan 00/ Active Tablets 50mg 1 po bid Unknown Potassium 0000 Carvedilol / Active Tablets 25mg 200ta 1 by mouth Unknown 0000 bs bid Aspirin / Active Tablets 81mg 1 by mouth Unknown 0000 every day Iron / Active Tablets 325(65Fe) 1 by mouth Unknown 0000 mg bid Detrol LA 00/ Active 4mg 1 po qd Unknown 0000 Vitamin B-12 / Active Tablets 500mcg 30tab 2 po qd Unknown 0000 Sub s Lantus Solostar / Active Sopn 100Unit/ML 80 units Unknown 0000 qam and 60 units qpm Potassium / Active Tablets ER 20Meq 30tab 1 by mouth Unknown Chloride ER 0000 s bid Terazosin HCL / Active Capsules 10mg 90cap 1 by mouth Unknown 0000 s every day Bumetanide / Active Tablets 2mg 180ta 1 po bid Unknown 0000 bs Spironolactone / Active Tablets 25mg 1 by mouth Unknown 0000 every day Levothyroxine / Active Tablets 25mcg 1 by mouth Unknown Sodium 0000 every day Simvastatin / Active Tablets 20mg 90tab 1 by mouth Unknown 0000 s every day Metolazone / Active Tablets 2.5mg 30tab 1 po twice Unknown 0000 s a week Multivitamins / Active Capsules 30cap 1 by mouth Unknown 0000 s every day Citalopram / Active Tablets 20mg 1 by mouth Unknown Hydrobromide 0000 every day Vitamin C 00/ Hx 500mg 2 tablets Unknown 0000 - po daily 2016 Lansoprazole/Primrose 0000/ Hx Misc 30/500/500 1 po daily Unknown xicillin/Clarith 0000 - for 10 romycin 11/28/ days for 2015 infection in stomach lining Vital Signs Date Vital Result Comment 02/15/2018 Height 63 inches 5'3" Weight 228.00 lb Heart Rate 78 /min BP Systolic Sitting 158 mmHg lue lg cuff (no am meds) BP Diastolic Sitting 62 mmHg lue lg cuff (no am meds) BP Systolic Standing 160 mmHg BP Diastolic Standing 80 mmHg Respiratory Rate 18 /min BMI (Body Mass Index) 40.4 kg/m2 01/12/2017 Height 63 inches 5'3" Weight 215.00 lb with shoes Heart Rate 90 /min BP Systolic Sitting 122 mmHg Lue lg cuff BP Diastolic Sitting 70 mmHg Lue lg cuff BP Systolic Standing 130 mmHg Lue lg cuff BP Diastolic Standing 70 mmHg Lue lg cuff Respiratory Rate 17 /min BMI (Body Mass Index) 38.1 kg/m2 Ejection Fraction 40-45% date 11/23/16 echo 01/06/2016 Height 63 inches 5'3" Weight 221.00 lb with shoes Heart Rate 64 /min BP Systolic Sitting 132 mmHg LA lg cuff BP Diastolic Sitting 80 mmHg LA lg cuff BP Systolic Standing 132 mmHg LA lg cuff BP Diastolic Standing 86 mmHg LA lg cuff Respiratory Rate 16 /min BMI (Body Mass Index) 39.1 kg/m2 Ejection Fraction 40-45% date 11/19/14 ECHO 11/29/2014 Height 63 inches 5'3" Weight 233.00 lb with shoes Heart Rate 72 /min BP Systolic Sitting 148 mmHg LA lg cuff BP Diastolic Sitting 70 mmHg LA lg cuff BP Systolic Standing 144 mmHg LA lg cuff BP Diastolic Standing 70 mmHg LA lg cuff BMI (Body Mass Index) 41.3 kg/m2 Ejection Fraction 40-45% date 11/19/14 11/08/2014 Height 63 inches 5'3" Weight 234.00 lb Heart Rate 80 /min BP Systolic Sitting 142 mmHg LA reg cuff BP Diastolic Sitting 64 mmHg LA reg cuff BP Systolic Standing 134 mmHg LA BP Diastolic Standing 66 mmHg LA Respiratory Rate 18 /min BMI (Body Mass Index) 41.4 kg/m2 Ejection Fraction 40-45% 04/27/11 11/02/2013 Height 63 inches 5'3" Weight 225.00 lb Heart Rate 64 /min BP Systolic Sitting 108 mmHg Ra large cuff BP Diastolic Sitting 72 mmHg Ra large cuff BP Systolic Standing 104 mmHg Ra BP Diastolic Standing 76 mmHg Ra Respiratory Rate 18 /min BMI (Body Mass Index) 39.9 kg/m2 Results Test Date Test Result H/L Range Note Basic Metabolic Panel 11/19/2014 Sodium 140 mmol/L 133-145 Potassium 4.1 mmol/L 3.5-5.0 Chloride 103 mmol/L 101-111 Co2 Carbon Dioxide 31 mmol/L 22-32 Anion Gap 6 mmol/L 2-11 Glucose 173 mg/dL High 70-100 Blood Urea Nitrogen 15 mg/dL 6-24 Creatinine 1.07 mg/dL High 0.51-0.95 BUN/Creatinine Ratio 14.0 8-20 Calcium 9.8 mg/dL 8.6-10.3 Egfr Non- 50.3 >60 Egfr 64.6 >60 1 1 Because ethnic data is not always readily available, this report includes an eGFR for both -Americans and non- Americans. The National Kidney Disease Education Program (NKDEP) does not endorse the use of the MDRD equation for patients that are not between the ages of 18 and 70, are , have extremes of body size, muscle mass, or nutritional status, or are non- or non-. According to the National Kidney Foundation, irrespective of diagnosis, the stage of the disease is based on the level of kidney function: Stage Description GFR(mL/min/1.73 m(2)) 1 Kidney damage with normal or decreased GFR 90 2 Kidney damage with mild decrease in GFR 60-89 3 Moderate decrease in GFR 30-59 4 Severe decrease in GFR 15-29 5 Kidney failure <15 (or dialysis) Procedures Date CPT Code Description Status 02/15/2018 88265 EKG Tracing & Interpretation Completed 05/10/2017 13308 Cath PLMT&NJX L Ventriculog Img S&I Completed 05/09/2017 48027 ECHO Transthorasic Realtime 2D W Doppler & Color Flow Completed Hosp 05/09/2017 19274 EKG, Interpretation Only Completed 05/08/2017 26323 EKG, Interpretation Only Completed 01/12/2017 98008 EKG Tracing & Interpretation Completed 11/23/2016 58837 ECHO Transthorasic Realtime 2D W Doppler & Color Flow Completed Hosp 11/22/2016 25913 EKG, Interpretation Only Completed 09/14/2016 96643 EKG, Interpretation Only Completed 01/06/2016 08006 EKG Tracing & Interpretation Completed 11/19/2014 35100 ECHO Transthorasic Realtime 2D W Doppler & Color Flow Completed Hosp 11/08/2014 13418 EKG Tracing & Interpretation Completed 11/02/2013 55678 EKG Tracing & Interpretation Completed 10/12/2012 89914 EKG Tracing & Interpretation Completed Encounters Type Date Location Provider CPT E/M Dx Office Visit 02/15/2018 [facility] Swapnil Horton, 58800 I50.43 8:00a Intake Counselor M.D. I50.9 R07.9 Office Visit 05/13/2017 11:20a [facility] Swapnil Horton, 22458 R07.9 [facility] M.D. Office Visit 05/11/2017 2:56p [facility] Olivia Reveles M.D. 66841 I50.9 [facility] Office Visit 05/10/2017 8:08a [facility], SOFIA Bianchi 90675 I50.43 Hospitalists G30.1 E11.9 F02.80 Office Visit 05/09/2017 2:42p [facility] Swapnil Horton, 15585 R07.9 [facility] M.DTereza I50.9 Office Visit 05/09/2017 8:06a [facility],SOFIA Lock 50514 I50.43 Hospitalists G30.1 E11.9 F02.80 Office Visit 05/08/2017 8:06a [facility],SOFIA Lock 64493 I50.43 Hospitalists G30.1 E11.9 F02.80 Office Visit 05/07/2017 8:05[facility] [place], [address] I50.43 Assoc, Hospitalists M.Heather G30.1 E11.9 F02.80 Office Visit 03/11/2017 7:20a [facility], Sharmin Cornell, N.P. 00491 I26.99 Hospitalists I50.43 E11.9 Z79.4 Office Visit 03/10/2017 7:19a [facility], Sharmin Cornell, N.P. 03599 I26.99 Hospitalists I50.43 E11.9 Z79.4 Office Visit 03/09/2017 7:19a [facility] [place], [address] I26.99 Assoc, Hospitalists M.Heather I50.43 E11.9 Z79.4 Office Visit 01/12/2017 10:45a [facility] Swapnil Horton, 24093 I10 M.DTereza I42.9 Office Visit 11/23/2016 1:26p [facility] Jake Kim, 21673 H53.40 Assoc,pc PA Hospitalists E11.8 I10 E78.5 Office Visit 11/23/2016 2:42p [facility] Satish Samayoa, 70717 H53.452 E11.65 I10 Office Visit 11/22/2016 2:33p [facility] Jose DeboraTereza 76419 H53.452 Maverick Rosen E11.65 I10 Office Visit 11/22/2016 [facility] 01450 H53.40 Assoc,pc PA Hospitalists E11.8 I10 E78.5 Office Visit 11/21/2016 1:24p [facility] Walt [place], 21080 H53.40 Assoc,pc Hospitalists N.P. E11.8 I10 E78.5 Office Visit 09/14/2016 7:30a [facility] Donna Morrison, VEHICLE MODIFICATION TECHNICIAN 72280 R06.02 Assoc,pc Hospitalists R07.9 E11.22 N18.3 Office Visit 09/13/2016 7:30a [facility] Assoc,pc Sharmin Cornell, N.P. 32864 R06.02 Hospitalists R07.9 E11.22 Office Visit 03/09/2016 1:16p [facility] Sindhu Mann, VEHICLE MODIFICATION TECHNICIAN 69291 E11.01 Assoc,pc Hospitalists D50.9 N18.3 I50.42 Office Visit 03/08/2016 1:16p [facility] Assoc,pc Sindhu Mann, VEHICLE MODIFICATION TECHNICIAN 38027 D50.9 Hospitalists N18.3 I50.42 E11.01 Office Visit 03/07/2016 1:15p [facility] 33950 E11.01 Assoc,pc PA Hospitalists N18.3 I50.42 D50.9 Office Visit 03/06/2016 1:14p [facility] Jake Kim, 31499 N18.3 Assoc,pc PA Hospitalists D50.9 I50.42 E11.01 Office Visit 01/06/2016 1:30p [facility] Swapnil Horton, 85935 I42.9 [facility] Maverick I10 R60.0 Office Visit 11/29/2014 2:30p [facility] Intake Counselor SOFIA Rea [id number] 425.4 401.9 250.00 782.3 Office Visit 11/08/2014 3:00p [facility] Swapnil Horton 23210 425.4 Kike Temple 401.9 786.05 Office Visit 11/02/2013 12:45p [facility] Swapnil Horton 48964 425.4 Kike Temple 401.9 Office Visit 10/12/2012 12:30p [facility] Swapnil Horton 21486 425.4 Kike Temple 401.9 250.00 Plan of Care 02/15/2018 - Swapnil Horton M.D.I50.43 Acute on chronic combined systolic and diastolic hrt failFollow up:1 yearI50.9 Heart failure, wubcystuftmL80.9 Chest pain, unspecified
--- OUTSIDE RECORDS SUMMARY | 2018-02-28 12:11 | XMS REPORT ---
:1940 External Reference #:[id number] Author Organization [employer] Address [address] [place] [address] [place] [address] Phone [phone] Care Team Providers Name Role Phone Neena Moyer MD Primary Care Physician Unavailable Payers Type Date Identification Numbers Payment Provider Subscriber Medicare Primary Effective: Policy Number: Medicare Erika Hansen 2000 [id number] PayID: [id number] [address] [place] [address] [facility] Part B Effective: Policy Number: A[employer] Insurance Erika Plunkett 2006 [id number] [employer] Number: [id number] [address] PayID: [id number] [place] [address] Problems Date Description Provider Status Onset: 11/02/2013 [...] tablets Unknown 0000 - po daily 2016 Lansoprazole/[place] 0000/ Hx Misc 30/500/500 1 po daily [...] Procedures Date CPT Code Description Status 02/15/2018 04205 EKG Tracing & Interpretation Completed 05/10/2017 64454 Cath PLMT&NJX L Ventriculog Img S&I Completed 05/09/2017 04436 ECHO Transthorasic Realtime 2D W Doppler & Color Flow Completed Hosp 05/09/2017 82560 EKG, Interpretation Only Completed 05/08/2017 53455 EKG, Interpretation Only Completed 01/12/2017 14523 EKG Tracing & Interpretation Completed 11/23/2016 30068 ECHO Transthorasic Realtime 2D W Doppler & Color Flow Completed Hosp 11/22/2016 99288 EKG, Interpretation Only Completed 09/14/2016 97436 EKG, Interpretation Only Completed 01/06/2016 25305 EKG Tracing & Interpretation Completed 11/19/2014 66264 ECHO Transthorasic Realtime 2D W Doppler & Color Flow Completed Hosp 11/08/2014 65414 EKG Tracing & Interpretation Completed 11/02/2013 61883 EKG Tracing & Interpretation Completed 10/12/2012 71770 EKG Tracing & Interpretation Completed Encounters Type Date Location Provider CPT E/M Dx Office Visit 02/15/2018 [facility] Swapnil Horton, 41969 I50.43 8:00a Shot Grinder Operator M.D. I50.9 R07.9 Office Visit 05/13/2017 11:20a [facility] Swapnil Horton, 37093 R07.9 [facility] M.D. Office Visit 05/11/2017 2:56p [facility] Olivia Reveles M.D. 07531 I50.9 [facility] Office Visit 05/10/2017 8:08a [facility], SOFIA Bianchi 77906 I50.43 Hospitalists G30.1 E11.9 F02.80 Office Visit 05/09/2017 2:42p [facility] Swapnil Horton, 86871 R07.9 [facility] M.DTereza I50.9 Office Visit 05/09/2017 8:06a [facility],SOFIA Lock 84651 I50.43 Hospitalists G30.1 E11.9 F02.80 Office Visit 05/08/2017 8:06a [facility],SOFIA Lock 63395 I50.43 Hospitalists G30.1 E11.9 F02.80 Office Visit 05/07/2017 8:05a [facility], [address] I50.43 Assoc, Hospitalists M.Heather G30.1 E11.9 F02.80 Office Visit 03/11/2017 7:20a [facility], Sharmin Cornell, N.P. 20383 I26.99 Hospitalists I50.43 E11.9 Z79.4 Office Visit 03/10/2017 7:19a [facility], Sharmin Cornell, N.P. 30379 I26.99 Hospitalists I50.43 E11.9 Z79.4 Office Visit 03/09/2017 7:19a [facility] [address] I26.99 Assoc, Hospitalists M.Heather I50.43 E11.9 Z79.4 Office Visit 01/12/2017 10:45a [facility] Swapnil Horton, 16685 I10 M.DTereza I42.9 Office Visit 11/23/2016 1:26p [facility] Jake Kim, 80842 H53.40 Assoc,pc PA Hospitalists E11.8 I10 E78.5 Office Visit 11/23/2016 2:42p [facility] Satish Samayoa, 22469 H53.452 E11.65 I10 Office Visit 11/22/2016 2:33p [facility] Jose DeboraTereza 34975 H53.452 Maverick Rosen E11.65 I10 Office Visit 11/22/2016 [facility]p [facility] 27663 H53.40 Assoc,pc PA Hospitalists E11.8 I10 E78.5 Office Visit 11/21/2016 1:24p [facility] Walt Terril, 11128 H53.40 Assoc,pc Hospitalists N.P. E11.8 I10 E78.5 Office Visit 09/14/2016 7:30a [facility] Donna Morrison, COMMERCIAL ACCOUNTANT 98471 R06.02 Assoc,pc Hospitalists R07.9 E11.22 N18.3 Office Visit 09/13/2016 7:30a [facility] Assoc,pc Sharmin Cornell, N.P. 59465 R06.02 Hospitalists R07.9 E11.22 Office Visit 03/09/2016 1:16p [facility] Sindhu Mann, COMMERCIAL ACCOUNTANT 15615 E11.01 Assoc,pc Hospitalists D50.9 N18.3 I50.42 Office Visit 03/08/2016 1:16p [facility] Assoc,pc Sindhu Mann, COMMERCIAL ACCOUNTANT 60179 D50.9 Hospitalists N18.3 I50.42 E11.01 Office Visit 03/07/2016 1:15p [facility] 68747 E11.01 Assoc,pc PA Hospitalists N18.3 I50.42 D50.9 Office Visit 03/06/2016 1:14p [facility] Jkae Kim, 28234 N18.3 Assoc,pc PA Hospitalists D50.9 I50.42 E11.01 Office Visit 01/06/2016 1:30p [facility] Swapnil Horton, 05148 I42.9 [facility] [place] Maverick I10 R60.0 Office Visit 11/29/2014 2:30p [facility] Shot Grinder Operator SOFIA Rea [id number] 425.4 401.9 250.00 782.3 Office Visit 11/08/2014 3:00p [facility] Swapnil Horton 43290 425.4 Kike Temple 401.9 786.05 Office Visit 11/02/2013 12:45p [facility] Swapnil Horton 37942 425.4 Kike Temple 401.9 Office Visit 10/12/2012 12:30p [facility] Swapnil Horton 74482 425.4 Kike Temple 401.9 250.00 Plan of Care 02/15/2018 - Swapnil Horton M.D.I50.43 Acute on chronic combined systolic and diastolic hrt failFollow up:1 yearI50.9 Heart failure, aemmkpttffuP74.9 Chest pain, unspecified
--- NOTE | 2018-02-28 12:19 | RAD ---
HISTORY: CP COMPARISONS: February 23, 2018 VIEWS: 1: frontal portable view of the chest at 12:05 PM FINDINGS: LINES AND TUBES: None. CARDIOMEDIASTINAL SILHOUETTE: The cardiac silhouette is mildly enlarged. The cardiomediastinal silhouette is otherwise normal for portable technique. PLEURA: The costophrenic angles are sharp. No pleural abnormalities are noted. LUNG PARENCHYMA: The lungs are clear. ABDOMEN: The upper abdomen is clear. There is no subphrenic gas. BONES AND SOFT TISSUES: There is postsurgical change to the right shoulder. IMPRESSION: MILD CARDIOMEGALY.
--- NOTE | 2018-02-28 12:35 | ED ---
HPI Chest Pain - HPI Summary HPI Summary: This patient is a 77 year old F presenting to [facility] accompanied by her with a chief complaint of CP since 929. Pt endorses sx are currently resolved; she endorses taking 2 NTG which alleviated sx after she took the 2nd at 955, sx gone a little after 1000. She endorses lightheadedness, and denies diaphoresis. She notes similar sx last week while in hospital. - History of Current Complaint Chief Complaint: EDChestWallPain Time Seen by Provider: 02/28/18 11:26 Hx Obtained From: Patient Onset/Duration: Started Hours Ago, Atraumatic, Resolved Timing: Constant, Lasting Minutes Initial Severity: Moderate Current Severity: None Pain Intensity: 0 Pain Scale Used: 0-10 Numeric Chest Pain Location: Upper Sternal Chest Pain Radiates: No Character: Sharp/Stabbing Aggravating Factor(s): Nothing Alleviating Factor(s): NTG 123 Associated Signs and Symptoms: Positive: Chest Pain, Lightheadedness. Negative : Fever, Diaphoresis Related History: Similar Episode/Dx as: - hospital stay lst week - Additional Pertinent History Primary Care Physician: JASON - Allergy/Home Medications Allergies/Adverse Reactions: Allergies Allergy/AdvReac Type Severity Reaction Status Date / Time captopril Allergy Severe Hives Verified 02/20/18 13:03 PMH/Surg Hx/FS Hx/Imm Hx Endocrine/Hematology History: Reports: Hx Diabetes, Hx Anemia - chronic iron infusions Cardiovascular History: Reports: Hx Congestive Heart Failure, Hx Coronary Artery Disease, Hx Hypercholesterolemia, Hx Hypertension, Other Cardiovascular Problems/Disorders - cardiomyopathy Denies: Hx Pacemaker/ICD Respiratory History: Reports: Hx Asthma, Hx Chronic Obstructive Pulmonary Disease (COPD), Hx Sleep Apnea, Other Respiratory Problems/Disorders - emphysema GI History: Reports: Hx Gastroesophageal Reflux Disease, Hx Gastrointestinal Bleed, Hx Hiatal Hernia - s/p repair, Other GI Disorders - HELICOBACTER INFECTION History: Reports: Other Problems/Disorders - CKD stage 3 Denies: Hx Renal Disease Musculoskeletal History: Reports: Hx Arthritis, Hx Back Problems, Other Musculoskeletal History - spinal stenosis Sensory History: Reports: Hx Cataracts - surgery with implants bilat eyes 96, Hx Contacts or Glasses - readers only Denies: Hx Deafness, Hx Hearing Aid Opthamlomology History: Reports: Hx Cataracts - surgery with implants bilat eyes 96, Hx Contacts or Glasses - readers only EENT History: Denies: Hx Deafness Neurological History: Reports: Other Neuro Impairments/Disorders - vertigo Psychiatric History: Reports: Other Psychiatric Issues/Disorders - PT REPORTS "STRESS" AND SAYS HER MD GAVE HER A MED FOR IT, UNSURE WHAT Denies: Hx Panic Disorder - Surgical History Surgery Procedure, Year, and Place: HERNIA. HYSTERECTOMY. CATERACTS. CARPAL TUNNEL. CYSTS REMOVED FROM BILATERAL ARMPITS. RTC RT. LT FOOT SURGERY - Immunization History Date of Tetanus Vaccine: > 10 yers Date of Influenza Vaccine: 7623-3715 Immunizations Up to Date: Yes Infectious Disease History: No Infectious Disease History: Denies: Traveled Outside the [place] in Last 30 Days - Family History Known Family History: Positive: Other - Yes - CHF (Mother) - Social History Occupation: Retired Lives: With Family Alcohol Use: None Substance Use Type: Reports: None Hx Tobacco Use: Yes Smoking Status (MU): Former Smoker Have You Smoked in the Last Year: No Review of Systems Negative: Fever, Skin Diaphoresis Positive: Chest Pain Positive: no symptoms reported Neurological: Other - Lightheadedness All Other Systems Reviewed And Are Negative: Yes Physical Exam - Summary Physical Exam Summary: Appearance: The patient is well-nourished in no acute distress and in no acute pain. Skin: The skin is warm and dry and skin color reflects adequate perfusion. HEENT: The head is normocephalic and atraumatic. The pupils are equal and reactive. The conjunctivae are clear and without drainage. Nares are patent and without drainage. Mouth reveals moist mucous membranes and the throat is without erythema and exudate. The external ears are intact. The ear canals are patent and without drainage. The tympanic membranes are intact. Neck: The neck is supple with full range of motion and non-tender. There are no carotid bruits. There is no neck vein distension. Respiratory: Chest is non-tender. Lungs are clear to auscultation and breath sounds are symmetrical and equal. Cardiovascular: Heart is regular rate and rhythm. There is no murmur or rub auscultated. There is no peripheral edema and pulses are symmetrical and equal. Abdomen: The abdomen is soft and non-tender. There are normal bowel sounds heard in all four quadrants and there is no organomegaly palpated. Musculoskeletal: There is no back tenderness noted. Extremities are non-tender with full range of motion. There is good capillary refill. There is no peripheral edema or calf tenderness elicited. Neurological: Patient is alert and oriented to person, place and time. The patient has symmetrical motor strength in all four extremities. Cranial nerves are grossly intact. Deep tendon reflexes are symmetrical and equal in all four extremities. Psychiatric: The patient has an appropriate affect and does not exhibit any anxiety or depression. Triage Information Reviewed: Yes Vital Signs On Initial Exam: Initial Vitals Temp Pulse Resp BP Pulse Ox 98.2 F 55 20 147/60 100 02/28/18 11:18 02/28/18 11:18 02/28/18 11:18 02/28/18 11:18 02/28/18 11:18 Vital Signs Reviewed: Yes Diagnostics - Vital Signs Vital Signs Temp Pulse Resp BP Pulse Ox 02/28/18 11:18 98.2 F 55 20 147/60 100 - Laboratory Result Diagrams: 02/28/18 12:33 02/28/18 12:33 Lab Statement: Any lab studies that have been ordered have been reviewed, and results considered in the medical decision making process. - Radiology CXR Xray Interpretation: Positive (See Comments) Radiology Interpretation Completed By: Radiologist - Mild cardiomegaly. Dr. Ambrosio has reviewed this report. - EKG 1146 Cardiac Rate: Bradycardia - 52 EKG Rhythm: Sinus Bradycardia ST Segment: Normal Ectopy: None EKG Comparison: No Significant Change - from 02/24/18 Re-Evaluation - Re-Evaluation First Eval Re-Evaluation Time: 15:45 Change: Worse Comment: Per RN Víctor, pt is endorsing her CP is returning. Second Eval Re-Evaluation Time: 16:33 Change: Unchanged Comment: Discussed discharge, follow up. Chest Pain Course/Dx - Course Course Of Treatment: Ms. Hansen presented with a concern for chest pain there was left parasternal. She had tenderness in that area. She was evaluated recently in the hospital and the pain was felt to be musculoskeletal. She does have significant medical problems. On arrival the pain is completely resolved and her EKG was unchanged from previous. 2 troponins were both 0.02 and a second EKG was obtained when she began to feel the pain again. EKG was unchanged and her exam revealed even more chest wall tenderness at that point. She will be discharged for close follow-up with her PCP - Diagnoses Provider Diagnoses: Chest pain Discharge - Sign-Out/Discharge Documenting (check all that apply): Patient Departure - discharge - Discharge Plan Condition: Stable Disposition: HOME Patient Education Materials: Chest Pain (ED) Referrals: Neena Moyer MD [Primary Care Provider] - 3 Days Additional Instructions: Return to the emergency department for any new or worsening symptoms. - Billing Disposition and Condition Condition: STABLE Disposition: Home - Attestation Statements Document Initiated by Vitaliy: Yes Documenting Scribe: Lexx Hernandez Provider For Whom Vitaliy is Documenting (Include Credential): Dr. Mynor Ambrosio MD Scribe Attestation: Lexx Benitez scribed for Dr. Mynor Ambrosio MD on 02/28/18 at 1736. Scribe Documentation Reviewed: Yes Provider Attestation: The documentation as recorded by the Lexx puri accurately reflects the service I personally performed and the decisions made by me, Dr. Mynor Ambrosio MD
[2018-02-28 12:51] LABS: Hematocrit 27 % (35-47); Hemoglobin 8.5 g/dl (12.0-16.0); Mean Corpuscular HGB Conc 31 g/dl (31-36); Mean Corpuscular Hemoglobin 23 pg (27-31); Mean Corpuscular Volume 73 fL (80-97); Red Blood Count 3.73 10^6/ul (4.00-5.40); Red Cell Distribution Width 23 % (10.5-15); White Blood Count 7.7 10^3/ul (3.5-10.8)
[2018-02-28 12:56] LABS: INR 1.05 (0.77-1.02)
[2018-02-28 12:58] LABS: EGFR Non-African American 38.5 (>60)
[2018-02-28 13:54] LABS: Mean Platelet Volume 9.1 um3 (7.4-10.4); Platelet Count 117 10^3/ul (150-450)
[2018-02-28 13:57] LABS: ABS Basophils 0 10^3/ul (0-0.2); ABS Neutrophils 5.3 10^3/ul (1.5-7.7); ABS Neutrophils 5.8 10^3/ul (1.5-7.7); Monocytes % 3 % (0-7); Tear Drop Cells 1+
[2018-02-28 16:48] VITALS: BP 150/58
== END 2018-02-28 16:47 | disposition home or self-care (01) ==
LOC: ED 10:55
DX: R07.9 Chest pain, unspecified (principal); Z87.891 Personal history of nicotine dependence; E11.9 Type 2 diabetes mellitus without complications; I50.9 Heart failure, unspecified; E78.00 Pure hypercholesterolemia, unspecified; I10 Essential (primary) hypertension; J44.9 Chronic obstructive pulmonary disease, unspecified
CPT/HCPCS: 36415; 71045; 80053; 83605; 83880; 84484; 85025; 85610; 93005; 99283

== ENCOUNTER 2018-03-11 01:15 | Observation (INO) | payer MEDICARE, OTHER ==
--- NOTE | 2018-03-11 01:37 | ED ---
HPI Chest Pain - HPI Summary HPI Summary: Pt is 77 y[facility]. She was awoken at 23:30 feeling a pressure on her chest, lightheaded, and as if her blood sugar was low. Denies difficulty breathing. Symptoms were alleviated with NTG. Rates her pain intensity at triage 4/10. Pt visited [facility] in January to have fluid drained with Lasix. PMHx costochondritis and diabetes. - History of Current Complaint Chief Complaint: EDChestPainROMI Time Seen by Provider: 03/11/18 01:24 Hx Obtained From: Patient Onset/Duration: Started Hours Ago, Still Present Time of Onset: 23:30 Current Severity: Moderate Pain Intensity: 4 Pain Scale Used: 0-10 Numeric Character: Pressure/Squeezing Alleviating Factor(s): NTG 123 Associated Signs and Symptoms: Positive: Chest Pain, Lightheadedness. Negative : Shortness of Breath - Additional Pertinent History Primary Care Physician: JASON - Allergy/Home Medications Allergies/Adverse Reactions: Allergies Allergy/AdvReac Type Severity Reaction Status Date / Time captopril Allergy Severe Hives Verified 03/09/18 16:56 PMH/Surg Hx/FS Hx/Imm Hx Endocrine/Hematology History: Reports: Hx Diabetes, Hx Anemia - chronic iron infusions Cardiovascular History: Reports: Hx Congestive Heart Failure, Hx Coronary Artery Disease, Hx Hypercholesterolemia, Hx Hypertension, Other Cardiovascular Problems/Disorders - cardiomyopathy Denies: Hx Pacemaker/ICD Respiratory History: Reports: Hx Asthma, Hx Chronic Obstructive Pulmonary Disease (COPD), Hx Sleep Apnea, Other Respiratory Problems/Disorders - emphysema GI History: Reports: Hx Gastroesophageal Reflux Disease, Hx Gastrointestinal Bleed, Hx Hiatal Hernia - s/p repair, Other GI Disorders - HELICOBACTER INFECTION History: Reports: Other Problems/Disorders - CKD stage 3 Denies: Hx Renal Disease Musculoskeletal History: Reports: Hx Arthritis, Hx Back Problems, Other Musculoskeletal History - spinal stenosis Sensory History: Reports: Hx Cataracts - surgery with implants bilat eyes 96, Hx Contacts or Glasses - readers only Denies: Hx Deafness, Hx Hearing Aid Opthamlomology History: Reports: Hx Cataracts - surgery with implants bilat eyes 96, Hx Contacts or Glasses - readers only Neurological History: Reports: Other Neuro Impairments/Disorders - vertigo Psychiatric History: Reports: Other Psychiatric Issues/Disorders - PT REPORTS "STRESS" AND SAYS HER MD GAVE HER A MED FOR IT, UNSURE WHAT Denies: Hx Panic Disorder - Surgical History Surgery Procedure, Year, and Place: HERNIA. HYSTERECTOMY. CATERACTS. CARPAL TUNNEL. CYSTS REMOVED FROM BILATERAL ARMPITS. RTC RT. LT FOOT SURGERY - Immunization History Date of Tetanus Vaccine: > 10 yers Date of Influenza Vaccine: [id number] Infectious Disease History: No Infectious Disease History: Denies: Traveled Outside the [place] in Last 30 Days - Family History Known Family History: Positive: Other - Yes - CHF (Mother) - Social History Alcohol Use: None Substance Use Type: Reports: None Hx Tobacco Use: Yes Smoking Status (MU): Former Smoker Have You Smoked in the Last Year: No Review of Systems Positive: Chest Pain Negative: Shortness Of Breath Neurological: Other - Lightheadedness Positive: Weakness - as if blood sugar was low All Other Systems Reviewed And Are Negative: Yes Physical Exam - Summary Physical Exam Summary: Appearance: Well-appearing, Well-nourished, lying in bed comfortably Skin: Warm, dry, no obvious rash Eyes: sclera anicteric, no conjunctival pallor ENT: mucous membranes moist, pharynx appears normal Neck: Supple, nontender Respiratory: Clear to auscultation, no signs of respiratory distress Cardiovascular: Normal S1, S2. No murmurs. Normal distal pulses in tibial and radial bilaterally. Abdomen: Protruding obese abdomen with no peripheral edema. Soft, nontender, normal active bowel sounds present Musculoskeletal: Normal, Strength/ROM Intact Neurological: A&Ox3, awake and alert, mentation is normal, speech is fluent and appropriate Psychiatric: affect is normal, does not appear anxious or depressed Triage Information Reviewed: Yes Vital Signs On Initial Exam: Initial Vitals Temp Pulse Resp BP Pulse Ox 97.3 F 70 16 110/47 97 03/11/18 01:22 03/11/18 01:22 03/11/18 01:22 03/11/18 01:22 03/11/18 01:22 Vital Signs Reviewed: Yes Diagnostics - Vital Signs Vital Signs Temp Pulse Resp BP Pulse Ox 03/11/18 01:22 97.3 F 70 16 110/47 97 - Laboratory Result Diagrams: 03/11/18 01:53 03/11/18 01:53 Lab Statement: Any lab studies that have been ordered have been reviewed, and results considered in the medical decision making process. - Radiology CXR Radiology Interpretation Completed By: ED Physician - Impression: No acute disease, pending official report. - EKG 01:27 Cardiac Rate: NL - 68 bpm EKG Rhythm: Sinus Rhythm EKG Interpretation: NSR at 68 BPM,P waves,QRS complex, and T waves are within normal limits, T Chest Pain Course/Dx - Course Course Of Treatment: This is an elderly woman with a history of congestive heart failure who presents for the third time over the past 10 days with an identical syndrome consisting of mid chest pain associated with some lightheadedness. There was some concern she may have been dyspneic, but the patient denies this to me. She was hospitalized at the end of last month with a CHF exacerbation which almost look to being intubated. Her exam right now is benign, there is focal tenderness over the costochondral joints reproduces her pain. Her lungs are clear and there are no signs of respiratory distress. Chest x-ray does not show any changes of pulmonary edema. Thus far her lab studies are notable only for slightly worsening anemia with a hemoglobin of 7.5. I did a rectal exam and that did not show any melena. - Diagnoses Provider Diagnoses: Anemia, Chest pain - Provider Notifications Discussed Care Of Patient With: Jennifer Carty Time Discussed With Above Provider: 05:00 Instructed by Provider To: Other - Agreed to admit pt. Discharge - Sign-Out/Discharge Documenting (check all that apply): Patient Departure - Admit - Discharge Plan Condition: Stable Disposition: ADMITTED TO [facility] - Attestation Statements Document Initiated by Scribe: Yes Documenting Scribe: Lolly Gutierrez Provider For Whom Scribe is Documenting (Include Credential): Dr. Mynor Oden MD Scribe Attestation: ILolly, scribed for Dr. Mynor Oden MD on 03/11/18 at 0644.
[2018-03-11 02:14] LABS: Hematocrit 24 % (35-47); Hemoglobin 7.5 g/dl (12.0-16.0); Mean Corpuscular HGB Conc 31 g/dl (31-36); Mean Corpuscular Hemoglobin 23 pg (27-31); Mean Corpuscular Volume 75 fL (80-97); Red Blood Count 3.21 10^6/ul (4.00-5.40); Red Cell Distribution Width 24 % (10.5-15); White Blood Count 6.9 10^3/ul (3.5-10.8)
[2018-03-11 02:32] LABS: ABS Basophils 0.1 10^3/ul (0-0.2); ABS Eosinophils 0.2 10^3/ul (0-0.6); ABS Lymphocytes 0.5 10^3/ul (1.0-4.8); ABS Monocytes 0.5 10^3/ul (0-0.8); ABS Neutrophils 5.8 10^3/ul (1.5-7.7); ABS Nucleated RBC 0.1 10^3/ul
[2018-03-11 02:37] LABS: ABS Basophils 0 10^3/ul (0-0.2); ABS Neutrophils 5.3 10^3/ul (1.5-7.7); Monocytes % 1 % (0-7); Schistocytes 1+
[2018-03-11 02:38] LABS: Mean Platelet Volume 10.4 um3 (7.4-10.4); Platelet Count 136 10^3/ul (150-450)
[2018-03-11] MEDS ORDERED: oxyCODONE TAB* 5 MG TAB PO ONE (02:40)
[2018-03-11] MEDS ORDERED: Albuterol HFA INHALER* 8 gm MDI INH PRN (05:34)
[2018-03-11] MEDS ORDERED: Nitroglycerin TAB 0.4 MG* 0.4 MG TAB SL PRN (05:34)
[2018-03-11] MEDS ORDERED: Dextrose 50% Syringe 50 ML* 25 GM/50 ML SYRINGE IV PUSH PRN (05:51)
[2018-03-11] MEDS: Levothyroxine TAB* 25 MCG TAB PO SCH (07:22)
[2018-03-11] MEDS: Heparin VIAL(*) 5000 UNITS/ML VIAL (FIVE THOUSAND) SUBCUT SCH ×3 (07:23→21:33)
--- NOTE | 2018-03-11 08:05 | RAD ---
INDICATION: Dyspnea. COMPARISON: Comparison is made with a prior chest x-ray study from March 04, 2018. TECHNIQUE: AP and lateral views of the chest were obtained. FINDINGS: The heart is within normal limits in size. Mediastinal and hilar contours appear within normal limits. The lungs are underinflated and grossly clear. No pleural or effusion is seen. IMPRESSION: NO EVIDENCE FOR ACTIVE CARDIOPULMONARY DISEASE. R1
[2018-03-11] MEDS: Aspirin 81 mg CHEW TAB* 81 MG TAB.CHEW PO SCH (08:09)
[2018-03-11] MEDS: Carvedilol TAB* 25 MG PO SCH ×2 (08:09→20:25)
[2018-03-11] MEDS: Insulin LISPRO* 1 UNITS UNIT SUBCUT SCH ×4 (08:09→21:34)
[2018-03-11] MEDS: Ferrous Gluconate TAB* 324 MG TAB PO SCH ×2 (08:09→20:25)
[2018-03-11] MEDS: Atorvastatin* 10 MG TAB PO SCH (08:12)
[2018-03-11] MEDS: Insulin GLARGINE(*) 1 UNITS UNIT SUBCUT SCH (08:12)
--- NOTE | 2018-03-11 09:33 | HP ---
CC: Dr. Moyer HISTORY AND PHYSICAL: DATE OF ADMISSION: 03/11/18 PRIMARY CARE PROVIDER: Dr. Moyer. CHIEF COMPLAINT: Chest pain. HISTORY OF PRESENT ILLNESS: Ms. Hansen is a 77-year-old female who was hospitalized at [facility] from 01/26 01/11 through 02/24/18 with acute respiratory failure secondary to COPD and CHF. The patient has then subsequently presented to the emergency room on 02/28/18 and 03/04/18, both with complaints of chest pain and discharged home at that time. The patient presents on 03/11/18 with complaints of chest pa in again. She states that she had a completely normal day on 03/10/18. She went to bed and then she suddenly woke up from sleep around 11:15 to 11:30 p.m. When she woke up, she felt lightheaded and her legs were cramping. She thought her blood sugar was low and, therefore, took 2 sugar packets. She did not check her blood sugar prior to that. She then began to develop chest discomfort. She states that it was pressure like. At 11:50 p.m., she took a nitroglycerin which helped some, but did not c ompletely resolve her pain. She states her pain finally resolved after she was given oxycodone in [facility] emergency room. The pain would have been present for several hours at that time. She denies any s hortness of breath. She denies any nausea. She denies any sweating with this. The patient saw her [facility] care provider this past Tuesday. On 03/04/18, it was recommended that the patient discontinue her spironolactone as her creatinine was worsening. Dr. Moyer agreed with this plan and wanted to see the patient in followup early next week. PAST MEDICAL HISTORY: 1. Type 2 diabetes. 2. Systolic CHF. 3. Stage 2 chronic kidney disease. 4. Hypertension. 5. Hypothyroidism. 6. Hyperlipidemia. 7. COPD, on 2 L O2 continuously. 8. Spinal stenosis. PAST SURGICAL HISTORY: 1. Cyst removal from the bilateral armpits. 2. ORIF of left foot. 3. Bilateral carpal tunnel release. 4. Bilateral cataract extractions. 5. Umbilical hernia repair. 6. Hysterectomy. 7. Right rotator cuff repair. MEDICATIONS: The patient does not have a list, but based from her prior hospital visits, the patient is on: 1. Vitamin B12 of 1000 mcg p.o. daily. 2. Triamcinolone cream to apply topically daily as needed for rash. 3. Terazosin 10 mg p.o. q.h.s. 4. Simvastatin 20 mg p.o. daily. 5. Potassium chloride 20 mEq p.o. b.i.d. 6. Nystatin powder apply topically twice daily to rash. 7. Nitroglycerin 0.4 mg SL q.5 minutes p.r.n. chest pain. 8. Multivitamin 1 tab p.o. daily. 9. Metformin 1000 mg p.o. b.i.d. 10. Losartan 50 mg p.o. b.i.d. 11. Levothyroxine 25 mcg p.o. daily. 12. Lantus 80 units subcutaneous q.a.m., 60 units subcutaneous q.p.m. 13. Ferrous gluconate 325 mg p.o. b.i.d. 14. Coreg 25 mg p.o. b.i.d. 15. Bumex 2 mg p.o. daily. 16. Aspirin 81 mg p.o. daily. 17. Esme-[place] tab 1 tab p.o. q.6 hours p.r.n. heartburn. 18. Albuterol 2 puffs inhaled q.4 hours p.r.n. shortness of breath. ALLERGIES: CAPTOPRIL. FAMILY HISTORY: Mom at the age of 73. She had diabetes, CHF, and hypertension. Dad at th e age of 89. He had diabetes and Alzheimer's. SOCIAL HISTORY: The patient is a former smoker, she quit in 2001. She started smoking at the age of 21. She states that she eventually got up to smoking 3 packs per day. 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 She is . She has 5 children. Her Alejandro would be her healthcare proxy. REVIEW OF SYSTEMS: A complete 11-system review of systems was obtained. Pertinent positives and neg atives are as per HPI. In addition, the patient does complain of occasional abdominal pain. She sta kip her stool is always black. She states that she has been informed that she chronically loses bloo d, though workup in the past has not been able to identify the source of bleeding. She is on iron kirby pplementation daily. The rest of the review of systems is negative. PHYSICAL EXAMINATION GENERAL: The patient is a well-developed elderly female, seen lying flat in the stretcher, in no acu te distress. VITAL SIGNS: Blood pressure 112/58, pulse 71, respirations 21, temp 97.3, O2 sat 100% on 2 L. HEENT: Pupils are equal and round. There is evidence of prior cataract extraction. Extraocular mus cles are intact. Oropharynx is clear. Oral mucosa is moist. The patient is mostly edentulous. The re are a few teeth on the bottom. There is no submandibular, cervical, or supraclavicular adenopathy. Thyroid is not enlarged. No thyroid nodules are noted. PULMONARY: Lungs are clear to auscultation bilaterally. CARDIAC: Normal S1, S2. Regular rate and rhythm. I do not appreciate any murmurs. There is no low er extremity edema. ABDOMEN: Bowel sounds present. Abdomen is obese. Appears moderately distended. It is tympanic to p ercussion. It is nontender to palpation. MUSCULOSKELETAL: There is no cyanosis or clubbing of the digits. There is full active range of jennifer on of all 4 extremities. NEURO: Cranial nerves II through XII are grossly intact. Sensation is intact to light touch through out. Strength is 5/5 and symmetric in both upper and lower extremities bilaterally. PSYCH: The patient is alert. She is oriented x3. Affect appears appropriate. SKIN: Warm and dry. There are no rashes. DIAGNOSTIC STUDIES/LAB DATA: WBC 6.9, hemoglobin 7.5, hematocrit 24, platelets 136,000. Sodium 144 , potassium 3.6, chloride 104, CO2 of 33, BUN 50, creatinine 1.53, glucose 174, calcium 7.9. Bilirub in 0.5, AST 49, ALT 53, alk phos 139. Troponin 0.03, up to 0.04. Albumin 3.2. Chest x-ray to my interpretation appears clear. EKG reveals normal sinus rhythm with nonspecific ST-T wave changes in the inferior leads. ASSESSMENT AND PLAN: Ms. Hansen is a 77-year-old female who has been now 4 times to the hospital wit h complaints of chest pain, with her last admission being in the end of January where she was treated for congestive heart failure exacerbation and again comes back with complaints of chest pain. 1. Chest pain. Chest pain could be demand ischemia related to worsened anemia. She states nitroglyc radha helps, but do not resolve her chest pain completely; however, it is now gone. The patient had a catheterization in April 2017, normal coronary arteries. The patient's troponin did go up slight ly from 0.03 up to 0.04. This will be followed closely. If it goes up further, she may need to be s tarted on a heparin drip and a cardiology consultation obtained. I do not think she is in congestive heart failure exacerbation at this time and, in fact, I think she is likely on the dry side. The juana ackerman's symptoms will be monitored. 2. Anemia. The patient is chronically anemic; however, this is the lowest her hemoglobin has been r ecently. Iron studies from late 2016 revealed percent iron saturation of 7%. Her ferritin in January of this year was low normal at 19.5. She will continue on iron supplementation. She is ordered a u nit of blood by the ER provider and this is being administered currently. Followup hemoglobin will b e obtained later today. The patient has a known history of GI bleeding without a clear source having been identified. We will need to monitor her H and H closely. 3. Elevated LFTs. The patient's AST, ALT, and alk phos are elevated. I was going to order an ultra sound of the liver; however, she had a CT of the abdomen obtained in October 2017, which revealed evidenc e of cirrhosis. This likely explains her abnormal LFTs and thrombocytopenia and may also contribute to her anemia. 4. Type 2 diabetes. The patient should no longer be on metformin as her creatinine is greater than 1.4. She has had fluctuations in her creatinine, though over the last 2 weeks or so, her creatinine has worsened from her baseline. For now, her metformin will be held; however, if her creatinine retu rns to her baseline of approximately 1.1, then this could be resumed cautiously. For now, she will b e maintained on her usual doses of Lantus and the lispro sliding scale will be added. 5. Systolic congestive heart failure. As above, I do not believe the patient is in exacerbation at this time. I am going to hold her Bumex. We will also hold her potassium while she is not on her di uretic. 6. Hypertension. The patient's blood pressure is under good control. She will be maintained on her usual blood pressure regimen. 7. Hypothyroidism. We will continue current dose of Synthroid. 8. Chronic obstructive pulmonary disease. There are no signs of exacerbation at this time. She machelle l continue on 2 L of oxygen. 9. DVT prophylaxis: According to the Adult Thrombosis Prophylaxis Risk Factor Assessment Guide, the patient has a total risk factor score of 5, making her the highest risk. She will be on heparin 500 0 units subcutaneous q.8 hours. 10. Code status is full. TIME SPENT: Sixty five minutes were spent admitting this patient. [id number]/[facility] #: [id number]
[2018-03-11] MEDS ORDERED: Bumetanide TAB* 2 MG PO SCH (11:00)
[2018-03-11] MEDS: Potassium Chlor TAB* 20 MEQ TAB.ER PO SCH ×2 (11:23→20:25)
[2018-03-11] MEDS: Bumetanide TAB* 2 MG PO SCH (11:23)
[2018-03-11] MEDS: Acetylcysteine CAP (RENAL)* 600 MG PO SCH ×2 (11:56→20:23)
[2018-03-11 14:29] LABS: Hematocrit 25 % (35-47); Hemoglobin 7.8 g/dl (12.0-16.0); Mean Corpuscular HGB Conc 32 g/dl (31-36); Mean Corpuscular Hemoglobin 24 pg (27-31); Mean Corpuscular Volume 76 fL (80-97); Mean Platelet Volume 9.5 um3 (7.4-10.4); Platelet Count 116 10^3/ul (150-450); Red Blood Count 3.29 10^6/ul (4.00-5.40); Red Cell Distribution Width 23 % (10.5-15); White Blood Count 7.6 10^3/ul (3.5-10.8)
--- NOTE | 2018-03-11 17:02 | PN ---
Subjective Date of Service: 03/11/18 Interval History: NO complaint patient states that she is feeling well, Denies chest pain or shortness of breath. Denies black or tarry stools or blood in the stool. Patient denies vomiting blood. Denies fever or chills, Denies abd pain n/v/d Family History: Unchanged from Admission Social History: Unchanged from Admission Past Medical History: Unchanged from Admission Objective Active Medications: Acetylcysteine (Acetylcysteine Cap (Renal)*) 1,200 mg PO BID [facility] Last Admin: 03/11/18 11:56 Dose: 1,200 mg Albuterol (Ventolin Hfa Inhaler*) 2 puff INH Q4H PRN PRN Reason: SOB/WHEEZING Aspirin (Aspirin 81 Mg Chew Tab*) 81 mg PO DAILY [facility] Last Admin: 03/11/18 08:09 Dose: 81 mg Atorvastatin Calcium (Lipitor*) 10 mg PO DAILY [facility] Last Admin: 03/11/18 08:12 Dose: 10 mg Bumetanide (Bumex Tab*) 2 mg PO DAILY [facility] Last Admin: 03/11/18 11:23 Dose: 2 mg Carvedilol (Coreg Tab*) 25 mg PO BID [facility] Last Admin: 03/11/18 08:09 Dose: 25 mg Dextrose (D50w Syringe 50 Ml*) 12.5 gm IV PUSH .FOR FS < 60 - SS PRN PRN Reason: FS < 60 Ferrous Gluconate (Fergon Tab*) 324 mg PO BID [facility] Last Admin: 03/11/18 08:09 Dose: 324 mg Heparin Sodium (Porcine) (Heparin Vial(*)) 5,000 units SUBCUT Q8HR [facility] Last Admin: 03/11/18 13:16 Dose: 5,000 units Insulin Glargine (Lantus(*)) 60 units SUBCUT 2000 [facility] Insulin Glargine (Lantus(*)) 80 units SUBCUT QAM [facility] Last Admin: 03/11/18 08:12 Dose: 80 units Insulin Human Lispro (Humalog*) 0 units SUBCUT ACHS [facility]; Protocol Last Admin: 03/11/18 16:35 Dose: Not Given Levothyroxine Sodium (Synthroid Tab*) 25 mcg PO 0600 [facility] Last Admin: 03/11/18 07:22 Dose: 25 mcg Nitroglycerin (Nitroglycerin Tab 0.4 Mg*) 0.4 mg SL Q5M PRN PRN Reason: ANGINA Potassium Chloride (Klor Con Er Tab*) 20 meq PO BID [facility] Last Admin: 03/11/18 11:23 Dose: 20 meq Terazosin HCl (Hytrin Cap*) 10 mg PO BEDTIME [facility] Vital Signs - 8 hr 03/11/18 03/11/18 03/11/18 11:09 11:33 15:22 Temperature 98.5 F 98.0 F 98.2 F Pulse Rate 64 59 65 Respiratory 22 18 16 Rate Blood Pressure 133/45 112/39 157/52 (mmHg) O2 Sat by Pulse 100 100 100 Oximetry Oxygen Devices in Use Now: Nasal Cannula Appearance: appears comfortable resting in bed, no acute distress. Eyes: No Scleral Icterus Ears/Nose/Mouth/Throat: Clear Oropharnyx, Mucous Membranes Moist Neck: NL Appearance and Movements; NL JVP, Trachea Midline Respiratory: Symmetrical Chest Expansion and Respiratory Effort, Clear to Auscultation Cardiovascular: NL Sounds; No Murmurs; No JVD, No Edema Abdominal: NL Sounds; No Tenderness; No Distention Extremities: No Edema, No Clubbing, Cyanosis Skin: No Rash or Ulcers Neurological: Alert and Oriented x 3 Nutrition: Taking PO's Result Diagrams: 03/12/18 07:51 03/12/18 07:51 Assess/Plan/Problems-Billing Assessment: Ms. Hansen is a 77 y.o female with PMHX of CKD, DM, Systolic CHF, htn, hypothyroid that presented to the emergency room with chest pain and shortness of breath. Patient was found to have anemia with an H/H 7.5/24. Patient was given1 unit PRBC's. - Patient Problems (1) Chest pain Status: Acute Code(s): R07.9 - CHEST PAIN, UNSPECIFIED SNOMED Code(s): 82206799 Comment: Unclear etiology, perhaps secondary to anemia No repeat episodes today Troponins negative 0.03,0.04,0.[address]-T changes noted on EKG. No s/s fluid overload or CHF exacerbation. Recommend outpatient follow-up with PCP. (2) Iron deficiency anemia due to chronic blood loss Status: Chronic Code(s): D50.0 - IRON DEFICIENCY ANEMIA SECONDARY TO BLOOD LOSS (CHRONIC) SNOMED Code(s): 324374045 Comment: Reported history of chronic GI bleed from small bowel. Followed closely by PCP. Hemoccult negative in the ER. 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
[2018-03-11] MEDS ORDERED: Insulin GLARGINE(*) 1 UNITS UNIT SUBCUT SCH (20:00)
[2018-03-11] MEDS ORDERED: Terazosin CAP* 5 MG PO SCH (21:00)
[2018-03-12] MEDS: Heparin VIAL(*) 5000 UNITS/ML VIAL (FIVE THOUSAND) SUBCUT SCH ×2 (05:41→13:18)
[2018-03-12] MEDS: Levothyroxine TAB* 25 MCG TAB PO SCH (05:42)
[2018-03-12] MEDS: Insulin LISPRO* 1 UNITS UNIT SUBCUT SCH ×2 (07:47→12:37)
[2018-03-12 08:19] LABS: EGFR Non-African American 38.8 (>60)
[2018-03-12 08:20] LABS: Hematocrit 27 % (35-47); Hemoglobin 8.4 g/dl (12.0-16.0); Mean Corpuscular HGB Conc 31 g/dl (31-36); Mean Corpuscular Hemoglobin 24 pg (27-31); Mean Corpuscular Volume 76 fL (80-97); Mean Platelet Volume 10.4 um3 (7.4-10.4); Platelet Count 144 10^3/ul (150-450); Red Blood Count 3.55 10^6/ul (4.00-5.40); Red Cell Distribution Width 24 % (10.5-15); White Blood Count 6.6 10^3/ul (3.5-10.8)
[2018-03-12 08:40] LABS: ABS Basophils 0 10^3/ul (0-0.2); ABS Neutrophils 5.1 10^3/ul (1.5-7.7); Monocytes % 6 % (0-7); Tear Drop Cells 1+
[2018-03-12] MEDS: Bumetanide TAB* 2 MG PO SCH (09:05)
[2018-03-12] MEDS: Carvedilol TAB* 25 MG PO SCH (09:05)
[2018-03-12] MEDS: Atorvastatin* 10 MG TAB PO SCH (09:06)
[2018-03-12] MEDS: Ferrous Gluconate TAB* 324 MG TAB PO SCH (09:06)
[2018-03-12] MEDS: Potassium Chlor TAB* 20 MEQ TAB.ER PO SCH (09:06)
[2018-03-12] MEDS: Acetylcysteine CAP (RENAL)* 600 MG PO SCH (09:07)
[2018-03-12] MEDS: Aspirin 81 mg CHEW TAB* 81 MG TAB.CHEW PO SCH (09:07)
[2018-03-12] MEDS: Insulin GLARGINE(*) 1 UNITS UNIT SUBCUT SCH (09:29)
[2018-03-12 11:40] VITALS: BP 127/45
--- NOTE | 2018-03-12 19:44 | PN ---
Subjective Date of Service: 03/12/18 Interval History: no complaint overnight. Patient and staff reporting Blood glucose of 56 this AM. repeat was 65 - Lantus held. Denies denies chest pain or shortness of breath. Patient reports that she is feeling well. Denies abd pain n/v/d or black or tarry stools. Family History: Unchanged from Admission Social History: Unchanged from Admission Past Medical History: Unchanged from Admission Objective Oxygen Devices in Use Now: Nasal Cannula Appearance: alert , resting in bed , no acute distress Eyes: No Scleral Icterus Ears/Nose/Mouth/Throat: Clear Oropharnyx, Mucous Membranes Moist Neck: NL Appearance and Movements; NL JVP, Trachea Midline Respiratory: Symmetrical Chest Expansion and Respiratory Effort, Clear to Auscultation Cardiovascular: NL Sounds; No Murmurs; No JVD, No Edema Abdominal: NL Sounds; No Tenderness; No Distention Extremities: No Edema, No Clubbing, Cyanosis Skin: No Rash or Ulcers Neurological: Alert and Oriented x 3 Nutrition: Taking PO's Result Diagrams: 03/12/18 07:51 03/12/18 07:51 Assess/Plan/Problems-Billing Assessment: Ms. Hansen is a 77 y.o female with PMHX of CKD, DM, Systolic CHF, htn, hypothyroid that presented to the emergency room with chest pain and shortness of breath. Patient was found to have anemia with an H/H 7.5/24. Patient was given1 unit PRBC's. - Patient Problems (1) Chest pain Status: Acute Code(s): R07.9 - CHEST PAIN, UNSPECIFIED SNOMED Code(s): 51961945 Comment: Unclear etiology, perhaps secondary to anemia No repeat episodes today or overnight Troponins negative 0.03,0.04,0.[address]-T changes noted on EKG. - Negative Cardiac cath in 05/13- Patient does not wish to have any further workup No s/s fluid overload or CHF exacerbation. Recommend outpatient follow-up with PCP. (2) Iron deficiency anemia due to chronic blood loss Status: Chronic Code(s): D50.0 - IRON DEFICIENCY ANEMIA SECONDARY TO BLOOD LOSS (CHRONIC) SNOMED Code(s): 071297823 Comment: Reported history of chronic GI bleed from small bowel. Followed closely by PCP. Hemoccult negative in the ER. 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
--- NOTE | 2018-03-12 23:12 | DS ---
CC: Dr. Neena Moyer * DISCHARGE SUMMARY: DATE OF ADMISSION: 03/11/18 DATE OF DISCHARGE: 03/12/18 PROVIDER: Lula Coats NP ATTENDING PHYSICIAN: Dr. Matthew Romero * (dictated by Lula Coats NP). PRIMARY CARE PROVIDER: Dr. Neena Moyer. PRIMARY DIAGNOSES: 1. Chest pain. 2. Anemia. SECONDARY DIAGNOSES: 1. Type 2 diabetes. 2. Systolic congestive heart failure. 3. Chronic kidney disease, stage 2. 4. Hypertension. 5. Hypothyroid. 6. Hyperlipidemia. 7. Chronic obstructive pulmonary disease exacerbation, on chronic 2 liters O2. 8. Spinal stenosis. STUDIES COMPLETED WHILE IN THE HOSPITAL: 1. The patient had a chest x-ray on 03/11/18. Radiologist impression: No active cardiopulmonary disease. DISCHARGE MEDICATIONS: Changed home medications: 1. Lantus decreased to 60 units subcu q.a.m. 2. Lantus decreased to 30 units subcu p.m. 3. Metformin decreased to 500 mg p.o. b.i.d. Continued home medications: 1. Vitamin B12 of 1000 mcg p.o. daily. 2. Triamcinolone cream apply topically as needed for rash. 3. Terazosin 10 mg p.o. at h.s. 4. Simvastatin 20 mg p.o. daily. 5. Potassium 20 mEq p.o. b.i.d. 6. Nystatin powder apply twice daily to rash. 7. Nitroglycerin 0.4 sublingual q.5 minutes p.r.n. chest pain. 8. Multivitamin 1 tab p.o. daily. 9. Losartan 50 mg p.o. b.i.d. 10. Levothyroxine 25 mcg p.o. daily. 11. Ferrous gluconate 325 mg p.o. b.i.d. 12. Coreg 25 mg p.o. b.i.d. 13. Bumex 2 mg p.o. daily. 14. Aspirin 81 mg p.o. daily. 15. Esme-[place] tab 1 tab p.o. q.6 hours as needed for heartburn. 16. Albuterol 2 puffs inhaled q.4 hours needed for shortness of breath. HISTORY OF PRESENT ILLNESS AND HOSPITAL COURSE: Ms. Hansen is a 77-year-old female who [place] [facility] [place]18 with acute respiratory failure secondary to COPD and CHF. The patient then subsequently presented to the emergency room on 02/28/18 and 03/04/18 with both complaints of chest pain and discharged home at that time. The patient presented on with complaints of chest pain again. States that she has had a completely normal day on 03/10/18, she went to bed and suddenly woke up out of her sleep at 11:15 to 11:30 p.m., she woke, felt lightheaded and her legs were cramping. She thought her blood sugar was low; therefore, she took 2 sugar packets, did not check her blood sugar prior to that. Then began to develop chest discomfort. The patient states it was a pressure-like. At 11:50, she took a nitroglycerin, which helped some, but did not completely relieve her chest pain. She states that the pain finally resolved after she was given oxycodone in the emergency room. The patient has been present for several hours. Denies any shortness of breath, denies any nausea. Denies any sweating with this episode of chest pain. The patient does report that she recently saw her primary care provider this past Tuesday on 03/04/18. It was recommended that the patient discontinue her spironolactone as her creatinine was worsening. Dr. Moyer agreed with the plan and wanted to see the patient in followup next week. The patient was seen and evaluated in the emergency room. She was found to have worsening anemia with a hemoglobin of 7.5 and hematocrit of 24. The patient was given 1 unit of packed red blood cells during this hospitalization. Her CBC was repeated and her H and H on the date of discharge was 8.4 and 27. The patient has had no further episodes of chest pain or shortness of breath throughout her hospitalization. She reports she is feeling well. She denies any black or tarry stools. During the hospitalization, she denied any abdominal pain, denies any fever or chills. The patient reports that she is feeling at her baseline and wishes to go home. At this time, the patient is stable for discharge home. Ms. Hansen will be discharged back home. Vital signs are as follows: Blood pressure 127/45, temperature was 98.0, heart rate 62, respirations were 18, O2 saturation was 100% on 2 liters nasal cannula. DISCHARGE PLAN: Ms. Hansen will be discharged back home. Activity as tolerated. She should continue on a low-sodium heart-healthy diet. 1. Chest pain. I suspect her chest pain could be related to her anemia. She was given 1 unit of packed red blood cells during this admission and her H and H improved, subsequently resolving her chest pain and shortness of breath. The patient states that she is feeling much better. The patient did have a negative cardiac catheterization on April 2017, and during this admission, she did not wish to proceed with any further workup or testing. Her troponin levels were negative throughout her hospitalization. 2. Anemia. The patient did receive 1 unit of packed red blood cells during this hospitalization, again which also resolved her chest pain and shortness of breath. The patient states that she is feeling much better. She should continue to have her blood counts monitored as an outpatient. She should continue her iron infusions as previously prescribed. 3. Diabetes. She did have low blood sugars during this hospitalization. On the morning of discharge, her blood sugar was 56. Given these findings of low blood sugar in the morning, I decreased her Lantus insulin from 80 units to 60 units subcu and her evening Lantus insulin from 60 units to 40 units. I did decrease her metformin to 500 mg p.o. b.i.d. as the patient does report she has frequent low blood sugars in the a.m. at home. I recommended that she follow up with her primary care provider for further dosing and adjustments of her Lantus insulin. I did decrease the metformin as she did appear to have some mild renal failure and this should be lowered or discontinued, but did discuss this with the patient and deferred further management of her metformin to her primary care provider. The patient should follow up with her primary care provider next week as previously scheduled for further management of her Lantus insulin and metformin and further management of any continued chest pain. The patient was instructed to return to the emergency room for any increased chest pain or shortness of breath, any black or tarry stools, vomiting of blood or blood from the rectum. The patient verbalized understanding. This is a summarization of her hospitalization. If more complete details are needed, please obtain the entire medical record. TIME SPENT: Time spent on this discharge was 60 minutes, greater than half that time was spent with the patient discussing her discharge plans and instructions. CONDITION ON DISCHARGE: Stable. LULA COATS NP [id number]/[facility] #: [id number] WENDY
== END 2018-03-12 13:55 | disposition home or self-care (01) ==
LOC: ED 01:15 → MEDTELE 05:29
PROVIDERS: ADMIT Hospitalist; ATTEND Internal Medicine
CPT/HCPCS: 36415; 71046; 80048; 80053; 83540; 84484; 85025; 85027; 85060; 86850; 86900; 86901; 86922; 93005; A9270-GY; J1644; P9040

== ENCOUNTER 2018-04-13 22:08 | Observation (INO) | payer MEDICARE, OTHER ==
--- NOTE | 2018-04-13 22:41 | ED ---
HPI Chest Pain - HPI Summary HPI Summary: This pt is a 77 y/o female presenting to [facility] via EMS for chest pain that began around 15:00 today. Pt reports her chest pain began this afternoon. She states chest pain was located in her mid sternum and was non radiating. Additionally notes this morning she had lightheadedness, intermittent SOB, and nausea. Pt reports she did not take her medications today as she was nauseous. EMS administered 1 nitroglycerin and aspirin SUNGLASS CLIP ATT[employer]ER which resolved pt's chest pain. Pt currently states she is chest pain free. Pt wear 2 L of oxygen at home. She lives at home with her . PMHx includes cardiomyopathy and IDDM. Pt was not given a stress test in February 2018 when she was seen for chest pain. - History of Current Complaint Chief Complaint: EDChestPainROMI Time Seen by Provider: 04/13/18 22:30 Hx Obtained From: Patient Onset/Duration: Started Hours Ago, Resolved Timing: Lasting Hours Initial Severity: Moderate Current Severity: None Pain Intensity: 0 Pain Scale Used: 0-10 Numeric Chest Pain Location: Mid Sternal Chest Pain Radiates: No Aggravating Factor(s): Nothing Alleviating Factor(s): NTG 123, EMS Tx - aspirin Associated Signs and Symptoms: Positive: Chest Pain, Shortness of Breath, Lightheadedness, Nausea. Negative: Fever, Chills, Vomiting - Additional Pertinent History Primary Care Physician: JASON - Allergy/Home Medications Allergies/Adverse Reactions: Allergies Allergy/AdvReac Type Severity Reaction Status Date / Time captopril Allergy Severe Hives Verified 03/16/18 16:22 PMH/Surg Hx/FS Hx/Imm Hx Endocrine/Hematology History: Reports: Hx Blood Transfusions, Hx Diabetes, Hx Anemia - chronic iron infusions Cardiovascular History: Reports: Hx Congestive Heart Failure, Hx Coronary Artery Disease, Hx Hypercholesterolemia, Hx Hypertension, Other Cardiovascular Problems/Disorders - cardiomyopathy Denies: Hx Pacemaker/ICD Respiratory History: Reports: Hx Asthma, Hx Chronic Obstructive Pulmonary Disease (COPD), Hx Sleep Apnea, Other Respiratory Problems/Disorders - emphysema GI History: Reports: Hx Gastroesophageal Reflux Disease, Hx Gastrointestinal Bleed, Hx Hiatal Hernia - s/p repair, Other GI Disorders - HELICOBACTER INFECTION History: Reports: Other Problems/Disorders - CKD stage 3 Denies: Hx Renal Disease Musculoskeletal History: Reports: Hx Arthritis, Hx Back Problems, Other Musculoskeletal History - spinal stenosis Sensory History: Reports: Hx Cataracts - surgery with implants bilat eyes 96, Hx Contacts or Glasses - readers only Denies: Hx Deafness, Hx Hearing Aid Opthamlomology History: Reports: Hx Cataracts - surgery with implants bilat eyes 96, Hx Contacts or Glasses - readers only Neurological History: Reports: Other Neuro Impairments/Disorders - vertigo Psychiatric History: Reports: Other Psychiatric Issues/Disorders - PT REPORTS "STRESS" AND SAYS HER MD GAVE HER A MED FOR IT, UNSURE WHAT Denies: Hx Panic Disorder - Surgical History Surgery Procedure, Year, and Place: HERNIA. HYSTERECTOMY. CATERACTS. CARPAL TUNNEL. CYSTS REMOVED FROM BILATERAL ARMPITS. RTC RT. LT FOOT SURGERY - Immunization History Date of Tetanus Vaccine: > 10 yers Date of Influenza Vaccine: [id number] Infectious Disease History: No Infectious Disease History: Denies: Traveled Outside the [place] in Last 30 Days - Family History Known Family History: Positive: Other - Yes - CHF (Mother) - Social History Alcohol Use: None Substance Use Type: Reports: None Hx Tobacco Use: Yes Smoking Status (MU): Former Smoker Have You Smoked in the Last Year: No Review of Systems Negative: Fever, Chills Positive: Chest Pain Positive: Shortness Of Breath Positive: Nausea. Negative: Vomiting Neurological: Other - POS: lightheadedness All Other Systems Reviewed And Are Negative: Yes Physical Exam - Summary Physical Exam Summary: VITAL SIGNS: Reviewed. GENERAL: Patient is a morbidly female who is lying comfortable in the stretcher. Patient is not in any acute respiratory distress. HEAD AND FACE: No signs of trauma. No ecchymosis, hematomas or skull depressions. No sinus tenderness. EYES: PERRLA, EOMI x 2, No injected conjunctiva, no nystagmus. EARS: Hearing grossly intact. Ear canals and tympanic membranes are within normal limits. MOUTH: Oropharynx within normal limits. NECK: Supple, trachea is midline, no adenopathy, no JVD, no carotid bruit, no c- spine tenderness, neck with full ROM. CHEST: Symmetric, no tenderness at palpation LUNGS: Decreased breath sounds. CVS: Regular rate and rhythm, S1 and S2 present, no murmurs or gallops appreciated. ABDOMEN: Soft, non-tender. No signs of distention. No rebound no guarding, and no masses palpated. Bowel sounds are normal. RECTAL EXAM: Nakita, RN, is present as female well reactivator operator. Pt has black stool. This was sent for occult blood. EXTREMITIES: FROM in all major joints, no cyanosis or clubbing. Pt has bilateral pitting edema +1. NEURO: Alert and oriented x 3. No acute neurological deficits. Speech is normal and follows commands. SKIN: Dry and warm. Skin changes. Triage Information Reviewed: Yes Vital Signs On Initial Exam: Initial Vitals Temp Pulse Resp BP Pulse Ox 97.9 F 88 18 134/76 100 04/13/18 22:19 04/13/18 22:19 04/13/18 22:19 04/13/18 22:19 04/13/18 22:19 Vital Signs Reviewed: Yes Diagnostics - Vital Signs Vital Signs Temp Pulse Resp BP Pulse Ox 04/13/18 22:19 97.9 F 88 18 134/76 100 - Laboratory Result Diagrams: 04/13/18 23:21 04/13/18 23:21 Lab Statement: Any lab studies that have been ordered have been reviewed, and results considered in the medical decision making process. - Radiology Chest XR Xray Interpretation: Positive (See Comments) - elevation of left hemidiaphragm. Pending official radiology report. Radiology Interpretation Completed By: ED Physician - EKG 22:21 Cardiac Rate: NL - at 81 bpm EKG Rhythm: Sinus Rhythm EKG Interpretation: Normal axis. Normal interval. No ischemic changes Chest Pain Course/Dx - Course Assessment/Plan: Pt is a 77 y/o female who presents for chest pain that began around 15:00 today. Pt reports her chest pain began this afternoon. She states chest pain was located in her mid sternum and was non radiating. Additionally notes this morning she had lightheadedness, intermittent SOB, and nausea. Pt reports she did not take her medications today as she was nauseous. EMS administered 1 nitroglycerin and aspirin SUNGLASS CLIP ATT[employer]ER which resolved pt's chest pain. Pt currently states she is chest pain free. Test results show red blood cell count of 2.28, hemoglobin of 6.1, hematocrit of 19, creatinine of 1.42. Pt is guaiac positive. In the ED course the pt was given Protonix. I discussed the case with Dr. Moore, hospitalist, who accepted the pt for admission. - Diagnoses Provider Diagnoses: Anemia, Upper GI bleed, Chest pain - Provider Notifications Discussed Care Of Patient With: Kiki Moore - hospitalist Time Discussed With Above Provider: 00:15 Instructed by Provider To: Admit As Inpatient Discharge - Sign-Out/Discharge Documenting (check all that apply): Patient Departure - Admit to [facility] [place] - Discharge Plan Condition: Stable Disposition: ADMITTED TO [facility] Referrals: Neena Moeyr MD [Primary Care Provider] - - Attestation Statements Document Initiated by Scribe: Yes Documenting Scribe: Shannan Nielson Provider For Whom Scribe is Documenting (Include Credential): Duke Waggoner MD Scribe Attestation: Shannan eBnitez, scribed for Duke Waggoner MD on 04/14/18 at 0035.
[2018-04-13 23:34] LABS: INR 1.02 (0.77-1.02)
[2018-04-13 23:38] LABS: Hematocrit 19 % (35-47); Hemoglobin 6.1 g/dl (12.0-16.0); Mean Corpuscular HGB Conc 32 g/dl (31-36); Mean Corpuscular Hemoglobin 27 pg (27-31); Mean Corpuscular Volume 84 fL (80-97); Mean Platelet Volume 8.6 um3 (7.4-10.4); Platelet Count 149 10^3/ul (150-450); Red Blood Count 2.28 10^6/ul (4.00-5.40); Red Cell Distribution Width 22 % (10.5-15); White Blood Count 7.2 10^3/ul (3.5-10.8)
[2018-04-13 23:57] LABS: ABS Basophils 0.1 10^3/ul (0-0.2); ABS Eosinophils 0.1 10^3/ul (0-0.6); ABS Lymphocytes 1.2 10^3/ul (1.0-4.8); ABS Monocytes 0.6 10^3/ul (0-0.8); ABS Neutrophils 5.1 10^3/ul (1.5-7.7); ABS Nucleated RBC 0 10^3/ul; Eosinophil % 1.6 % (0-6); Lymphocyte % 17.5 % (25-47); Nucleated Red Blood Cells % 0.4
[2018-04-13 23:59] LABS: Schistocytes 1+
[2018-04-14] MEDS ORDERED: Pantoprazole IV* 40 MG IV ONE (00:19)
[2018-04-14] MEDS ORDERED: Albuterol HFA INHALER* 8 gm MDI INH PRN (00:58)
[2018-04-14] MEDS ORDERED: Dextrose 50% Syringe 50 ML* 25 GM/50 ML SYRINGE IV PUSH PRN (01:00)
[2018-04-14] MEDS ORDERED: Bumetanide TAB* 2 MG PO ONE (01:01)
[2018-04-14] MEDS: Pantoprazole* 80 mg IN NS 80 MG/250 ML BAG IVPB SCH ×2 (01:30→12:32)
[2018-04-14] MEDS ORDERED: Acetaminophen TAB* 325 MG PO PRN (02:45)
--- NOTE | 2018-04-14 04:15 | HP ---
CC: Dr. Neena Moyer; Dr. Samir Marcial HISTORY AND PHYSICAL: DATE OF ADMISSION: 04/14/18 TIME OF ADMISSION: 1 a.m. CHIEF COMPLAINT: Chest pain. HISTORY OF PRESENT ILLNESS: This is a 77-year-old female with history of diabetes, iron-deficiency anemia, and systolic heart failure, who presents with 1 day of chest pain and shortness of breath on exertion along with fatigue. She had been in her usual state of health until approximately 1 day ago when she noticed that she could not walk as far as usual and was much sleepier than usual. On a good day, she is able to walk from the living room to the bathroom ; however, over the last day, she has needed help walking these few steps. Her , Alejandro, is in the room and agrees with this account of her progressive weakness over the last day. Her chest pain is located in the middle of her chest and is worse when she exerts herself and resolves when she is at rest; however, it began this morning when she was at rest. She has no chest pain at this time and no shortness of breath at this time. She has no orthopnea and is able to lie down flat. In the ED, she was found to have a hemoglobin of 6.1 and we were asked to evaluate for admission. Ms. Hansen reports a long history of iron-deficiency anemia. She gets iron infusions as an outpatient and also takes p.o. iron. She follows with Dr. Marcial and reports that she has had multiple endoscopies, colonoscopies, and capsule endoscopies and no etiology of a GI bleed has ever been found. She reports that she always has black stools and that this has been unchanged. She denies any other bleeding. PAST MEDICAL HISTORY: 1. Iron-deficiency anemia. 2. Type 2 diabetes. 3. Systolic heart failure. 4. Chronic kidney disease secondary to diabetic nephropathy. 5. Hypertension. 6. Hypothyroidism. 7. COPD, on 2 L p.r.n. 8. Hyperlipidemia. 9. Spinal stenosis. PAST SURGICAL HISTORY: She has had a hernia repair, cataract extraction, partial hysterectomy, rotator cuff repair, and an ORIF of her foot. MEDICATIONS: Home medications: She does not have a home medication list and they have not yet been reconciled, but her discharge medications as per her discharge on 03/12/18 were: 1. Lantus 60 units in the morning. 2. Lantus 30 units in the evening. 3. Terazosin 10 mg q.h.s. 4. Simvastatin 20 p.o. daily. 5. Potassium 20 mEq p.o. b.i.d. 6. Nystatin powder applied twice daily as needed. 7. Nitroglycerin 0.4 sublingual q.5 minutes p.r.n. chest pain. 8. Multivitamin 1 tab p.o. daily. 9. Losartan 50 mg p.o. b.i.d. 10. Levothyroxine 25 mcg daily. 11. Ferrous gluconate 325 mg b.i.d. 12. Coreg 25 mg b.i.d. 13. Bumex 2 mg daily. 14. Aspirin 81 mg daily. 15. Albuterol 2 puffs q.4 hours p.r.n. shortness of breath. ALLERGIES: CAPTOPRIL. FAMILY HISTORY: Her mother had heart failure and diabetes, and her father had Alzheimer's dementia. SOCIAL HISTORY: Ms. Hansen is a former smoker. She does not drink alcohol. She is retired. Her , Alejandro, is her healthcare proxy. REVIEW OF SYSTEMS: Positive for lightheadedness, sleepiness, chest pain, and shortness of breath; and is negative for weight gain, weight loss, orthopnea, abdominal pain. Review of systems is also positive for nausea and negative for vomiting. PHYSICAL EXAMINATION GENERAL: Alert, tired-appearing woman, in no distress. Her , Alejandro, is at the bedside. VITAL SIGNS: Temperature 97.9, heart rate 88, respiratory rate 18, pulse ox 100 % on room air, blood pressure 134/76. HEENT: She has conjunctival pallor and cataracts in both eyes. Oral mucosa is moist. NECK: JVP is noted to 12 cm. LUNGS: Clear bilaterally. CHEST: She has a late systolic murmur heard throughout without radiation to the carotids. ABDOMEN: Obese but also distended. I cannot feel her liver or her spleen. She has no guarding or rebound. She has a small ecchymosis on the mid abdomen. No CVA tenderness. EXTREMITIES: She has chronic skin changes with 1+ pitting edema bilaterally. Her strength is 5/5 in all extremities. DIAGNOSTIC STUDIES/LAB DATA: White blood cell 7.2, hemoglobin 6.1, platelets 149. INR 1.02. Sodium 142, potassium 4.3, chloride 105, creatinine 1.42, glucose 195, lactic acid 0.9. Magnesium 1.7. Alk phos 115. EKG: Normal sinus rhythm at 81, normal axis. Normal SD, QRS, and QTc. No ST or T changes. Poor R-wave progression. ASSESSMENT AND PLAN: This is a 77-year-old female with history of iron- deficiency anemia, chronic hypoxic respiratory failure, and systolic heart failure, who presented to the emergency department with 1 day of chest pain, shortness of breath, and is found to have a hemoglobin of 6.1. 1. Anemia. Her fecal occult blood test is positive in the emergency department ; however, she explained that she has had an extensive workup for gastrointestinal losses, which had been unrevealing. She is receiving 1 unit of packed red blood cells right now and I agree with this intervention for a goal hemoglobin greater than 8. I am giving her now a dose of Bumex, as I think she is slightly volume overloaded and she is certainly at risk for transfusion-associated circulatory overload. She has been clearly iron deficient in the past and receives iron transfusions and p.o. iron as an outpatient; however, appears this has been ineffective. I am adding on B12 and LDH, though I have low suspicion for these being abnormal. I am consulting GI to see if they would consider pursuing further endoscopic or colonoscopy evaluation. Her MCV is normal, which is unusual, so maybe she does have a concomitant disorder in addition to iron deficiency. It appears she has also had a workup for myeloma and had only a polyclonal gammopathy. If her GI workup has been as extensive and recent, as she remembers it to be, a hematologic evaluation may be warranted. She has good IV access and no evidence of a brisk GI bleed and is quite hemodynamically stable. I am holding her antihypertensive. Lactic acid is normal; I will recheck this in the morning. Continue protonix drip for now. 2. Chest pain and shortness of breath. I suspect these are reflection of her severe anemia. She had a normal left heart catheterization in April 2017. Still, I will rule her out for acute coronary syndrome with 2 more troponins. Her EKG has no evidence of ischemia. She may be slightly volume overloaded, however, reports that her weight is approximately at baseline and I doubt that pulmonary edema is contributing to her symptoms at this time. 3. Type 2 diabetes. She reports having difficulty controlling her diabetes with high and low sugars. On her last admission, her blood sugars were low and her Lantus was decreased. I am continuing her Lantus based on those discharge instructions. 4. Diabetic nephropathy. Her creatinine is at baseline. 5. Chronic hypoxic respiratory failure. She wears 2 L p.r.n. at home and she is currently stable on room air. 6. Hypertension. I am holding her antihypertensives in the setting of possible gastrointestinal bleed. 7. Chronic systolic heart failure. I am giving her now a dose of Bumex and she will need to be monitored closely while receiving blood transfusions. I am holding her beta-sonal and BEST inhibitor. 8. DVT prophylaxis: Hold DVT prophylaxis given possible gastrointestinal bleed. 9. Diet: Liquids until GI evaluation. [id number]/[facility] #: [id number] MTDD
[2018-04-14] MEDS: Levothyroxine TAB* 25 MCG TAB PO SCH (06:05)
--- NOTE | 2018-04-14 06:40 | PN ---
Hospitalist Progress Note Date of Service: 04/14/18 colonoscopy reviewed; colonoscopy from 2017 had AVMs. case discussed with Dr. Brandon; will see her today.
[2018-04-14 07:45] LABS: ABS Basophils 0.1 10^3/ul (0-0.2); ABS Eosinophils 0.1 10^3/ul (0-0.6); ABS Lymphocytes 1.2 10^3/ul (1.0-4.8); ABS Monocytes 0.6 10^3/ul (0-0.8); ABS Nucleated RBC 0 10^3/ul; Eosinophil % 1.4 % (0-6); Hematocrit 24 % (35-47); Hemoglobin 7.8 g/dl (12.0-16.0); Lymphocyte % 17.5 % (25-47); Mean Corpuscular HGB Conc 32 g/dl (31-36); Mean Corpuscular Hemoglobin 27 pg (27-31); Mean Corpuscular Volume 83 fL (80-97); Mean Platelet Volume 8.8 um3 (7.4-10.4); Nucleated Red Blood Cells % 0.5; Platelet Count 135 10^3/ul (150-450); Red Blood Count 2.94 10^6/ul (4.00-5.40); Red Cell Distribution Width 19 % (10.5-15)
--- NOTE | 2018-04-14 07:45 | RAD ---
HISTORY: CP COMPARISONS: March 11, 2018 VIEWS: 2 : frontal AP view of the chest at 11:10 PM FINDINGS: LINES AND TUBES: None. CARDIOMEDIASTINAL SILHOUETTE: The cardiomediastinal silhouette is normal for portable technique. PLEURA: The costophrenic angles are sharp. No pleural abnormalities are noted. LUNG PARENCHYMA: The lungs are clear. ABDOMEN: The upper abdomen is clear. There is no subphrenic gas. BONES AND SOFT TISSUES: No bone or soft tissue abnormalities are noted. IMPRESSION: NO ACTIVE CARDIOPULMONARY DISEASE. R2
[2018-04-14 07:49] LABS: INR 1.06 (0.77-1.02)
[2018-04-14 08:02] LABS: EGFR Non-African American 38.8 (>60)
[2018-04-14] MEDS: Insulin LISPRO* 1 UNITS UNIT SUBCUT SCH ×4 (08:22→20:48)
[2018-04-14] MEDS: Potassium Chlor TAB* 20 MEQ TAB.ER PO SCH ×2 (08:29→20:16)
[2018-04-14] MEDS: Atorvastatin* 10 MG TAB PO SCH (08:29)
[2018-04-14] MEDS: Bumetanide TAB* 2 MG PO SCH (08:29)
[2018-04-14] MEDS: Insulin GLARGINE(*) 1 UNITS UNIT SUBCUT SCH (08:29)
[2018-04-14] MEDS ORDERED: fentaNYL* 50 MCG/ML 2 ML VIAL (100 MCG VIAL) ONE (16:31)
[2018-04-14] MEDS ORDERED: Midazolam* 1 MG/ML 10 ML VIAL (10 MG) ONE (16:31)
--- NOTE | 2018-04-14 17:00 | PN ---
Subjective Date of Service: 04/14/18 Interval History: Pt seen and examined. Meds and labs reviewed. ROS: Denied REED/dizziness, F/C, N/V, CP, SOB, increased cough, sputum production , abd pain, diarrhea, constipation, dysuria, myalgias, arthralgias, throat pain , and new skin lesions. The rest of the 14 point ROS are unremarkable. PHYSICAL EXAM: GEN APPEARANCE: Awake, not in acute distress HEENT: NC/AT, PERRLA, moist oral mucosa, (-) throat erythema NECK: Soft, supple, (-) cervical LAD, (-)JVD HEART: S1S2 WNL, RRR, No MRG CHEST: CTA, BL, GAE, No W/R/R ABD: Soft, ND/NT, NABS 4x Q EXT: No C/C/BLLE +1 SKIN: Warm to touch PSYCH: No active psychosis, hallucinations, depression, SI/HI Objective Active Medications: Acetaminophen (Tylenol Tab*) 650 mg PO Q6H PRN PRN Reason: PAIN Last Admin: 04/14/18 03:26 Dose: 650 mg Albuterol (Ventolin Hfa Inhaler*) 1 puff INH Q4H PRN PRN Reason: SOB/WHEEZING Atorvastatin Calcium (Lipitor*) 10 mg PO DAILY [facility] Last Admin: 04/14/18 08:29 Dose: 10 mg Bumetanide (Bumex Tab*) 2 mg PO DAILY [facility] Last Admin: 04/14/18 08:29 Dose: 2 mg Dextrose (D50w Syringe 50 Ml*) 12.5 gm IV PUSH .FOR FS < 60 - SS PRN PRN Reason: FS < 60 Pantoprazole Sodium (Protonix Iv Bag*) 80 mg in 250 mls @ 25 mls/hr IVPB Q10H [facility] Last Admin: 04/14/18 12:32 Dose: 25 mls/hr Insulin Glargine (Lantus(*)) 40 units SUBCUT 2000 [facility] Insulin Glargine (Lantus(*)) 60 units SUBCUT QAM [facility] Last Admin: 04/14/18 08:29 Dose: 60 units Insulin Human Lispro (Humalog*) 0 units SUBCUT ACHS [facility]; Protocol Last Admin: 04/14/18 11:43 Dose: 3 units Levothyroxine Sodium (Synthroid Tab*) 25 mcg PO 0600 [facility] Last Admin: 04/14/18 06:05 Dose: 25 mcg Potassium Chloride (Klor Con Er Tab*) 20 meq PO BID [facility] Last Admin: 04/14/18 08:29 Dose: 20 meq Vital Signs - 8 hr 04/14/18 04/14/18 11:31 15:26 Temperature 98.3 F 98.5 F Pulse Rate 74 75 Respiratory 18 18 Rate Blood Pressure 154/64 124/59 (mmHg) O2 Sat by Pulse 100 99 Oximetry Oxygen Devices in Use Now: None Result Diagrams: 04/14/18 07:30 04/14/18 07:30 Microbiology and Other Data: Microbiology 04/13/18 23:56 Stool Occult Blood (EM) - Final Stool Assess/Plan/Problems-Billing Assessment: - Patient Problems (1) TAHIR (iron deficiency anemia) Current Visit: Yes Status: Acute Code(s): D50.9 - IRON DEFICIENCY ANEMIA, UNSPECIFIED SNOMED Code(s): 20525355 Comment: -D/W Drs. Moyer and Dr. Duenas -Cancelled tagged RBC scan and per Dr. 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, which is presumably the source of chronic bleeding -Obtains IV Iron transfusion as outpt every 3 months (2) Chest pain Current Visit: No Status: Acute Code(s): R07.9 - CHEST PAIN, UNSPECIFIED SNOMED Code(s): 89543985 Comment: -Possibly due to symptomatic TAHIR given above -ACS ruled out due to troponins (-)x3 (3) DM2 (diabetes mellitus, type 2) Current Visit: Yes Status: Acute Comment: -Well controlled -Continue current insulin regimen -Continue watchful waiting (4) Acute on chronic renal insufficiency Current Visit: Yes Status: Acute Code(s): N28.9 - DISORDER OF KIDNEY AND URETER, UNSPECIFIED; N18.9 - CHRONIC KIDNEY DISEASE, UNSPECIFIED SNOMED Code(s ): 274953562 Comment: -Improving -Acute issue likely due to TAHIR -Continue watchful waiting -Continue to hold diuretics at this time (5) DVT prophylaxis Current Visit: No Status: Acute Code(s): QHO6115 - SNOMED Code(s): 620033109 Comment: -Will place pt on SCDs -Pharmacologic prophylaxis contraindicated due to GIB leading to TAHIR Status and Disposition: -As above -Will await for PT eval
--- NOTE | 2018-04-14 17:39 | CONS ---
GASTROENTEROLOGY CONSULT NOTE: DATE OF CONSULT: 04/14/18 REASON FOR CONSULT: Anemia. HISTORY OF PRESENT ILLNESS: Ms. Hansen is a 77-year-old woman with a history of congestive heart failure, COPD on 2 L O2 intermittently, diabetes, hypertension, hypothyroidism, hyperlipidemia, spinal stenosis, and chronic iron- deficiency anemia, who presented to the ER with complaints of chest pain. Ms. Hansen reports acute onset chest pain and shortness of breath, in particular with exertion over past day. She also reports some lightheadedness. In the ER, she was found to have a hemoglobin of 6.1 and hematocrit of 19. Compared to prior Hct of 23 on 04/04. Her fecal occult stool test was positive. he denies any overt GI bleeding. She has a long history of iron-deficiency anemia and is on oral iron twice a day as well as iron infusions. She was admitted and given 2 units of blood. Repeat hematocrit is 24 this morning and hemoglobin is 7.8. GI consulted given the iron-deficiency anemia. Ms. Hansen has previously seen Dr. Marcial for her iron-deficiency anemia. She has undergone EGD, colon and video capsule endoscopy as part of the workup. Reviewing her chart, it appears that in August 2014, she had an upper endoscopy with a duodenal polyp that demonstrated to be a tubular adenoma. CLOtest was positive. There is mention that she has failed H. pylori treatments in the past , although the full details of dates/treatment course for H pylori infection(s) are not readily available. Patient was felt to most likely be having bleeding from chronic AVMs. She underwent a repeat colonoscopy in May of 2016 and was noted to have 3 small colon polyps (2 tubular adenomas, 1 tubulovillous adenoma). These polyps were not felt to be significantly contributing to her iron deficiency. An EGD was performed in September 2016. There were nonbleeding duodenal polyps noted as well as a nonbleeding small AVM in the third portion of the duodenum status-post endotherapy with BiCAP. She then underwent a video capsule endoscopy in October 2016. This demonstrated a small benign-appearing jejunal polyp as well as a half-dozen small AVMs in the mid jejunum and distal ileum. These AVMs were not bleeding. Ultimately, Dr. Marcial felt that she was having chronic blood loss related to AVMs, although a dominant lesion was not identified. Therefore, the recommendation was to continue supportive care and not pursue more enteroscopy or surgical management. More recently, Ms. Hansen was hospitalized in February 2018 after presenting with chest pain and anemia. Her hematocrit was noted to be down to 24 at that time (compared to baseline Hct of 28-30) She was given a unit of blood. No further workup was performed given her absence of overt bleeding. On interview, Ms. Hansen states that she is feeling a bit better after the blood transfusions. She denies any ongoing chest pain or shortness of breath. She says she still feels a bit lightheaded at times. She had some nausea yesterday, which has resolved. Otherwise, she denies any GI symptoms such as nausea, vomiting, heartburn, dysphagia, abdominal pain, diarrhea, or constipation. She has 1 formed black stool daily, which is unchanged. She attributes the black color in part to the iron she takes twice a day. She also is on iron infusions. She uses ASA 81 mg/day. She has not noticed any other GI symptoms. No anticoagulation listed in chart or home meds - confirmed with primary team. PAST MEDICAL HISTORY: 1. Iron-deficiency anemia. 2. Type 2 diabetes. 3. Systolic heart failure. 4. COPD. 5. CKD. 6. Hypertension. 7. Hypothyroidism. 8. Hyperlipidemia. 9. Spinal stenosis. PAST SURGICAL HISTORY: History of a hernia repair, partial hysterectomy, rotator cuff surgery, ORIF on foot, cataract extraction. MEDICATIONS: Home medications reviewed. Home meds include: 1. Lantus. 2. Terazosin. 3. Simvastatin. 4. Potassium. 5. Nystatin powder. 6. Nitroglycerin p.r.n. 7. Multivitamin. 8. Losartan. 9. Levothyroxine. 10. Ferrous gluconate 324 b.i.d. 11. Coreg. 12. Bumex. 13. Aspirin 81 mg daily. 14. Albuterol p.r.n. ALLERGIES: CAPTOPRIL FAMILY HISTORY: No GI or liver disease in family. SOCIAL HISTORY: Former smoker. No alcohol or drug use. REVIEW OF SYSTEMS: A 10-point review of systems was reviewed and negative except as above. PHYSICAL EXAM: Vital Signs: Temp 98.5, heart rate 75, blood pressure 124/59, 99% on room air. General: Pleasant, obese, woman. No acute distress. HEENT: Conjunctival pallor. Mucous membranes are moist. Lungs: Breathing comfortably. No increased work of breathing. Clear bilaterally. Cardiovascular: Systolic murmur. Regular rate and rhythm. Abdomen: Obese, soft, nontender, nondistended. Extremities: 1+ pitting edema. LAB DATA: Reviewed. Initial hematocrit 19 down from a more long-term baseline of 27 to 30 (and 23 on 04/04/18). Her most recent blood count after 2 units of blood increased to 24. Her white count is normal. Her MCV is 83. Her RDW is high at 19. Plt count low at 135. Her INR is essentially normal at 1.06. Her comprehensive metabolic panel notable for a BUN of 27 and a creatinine of 1.3. LFTs normal. Lactic acid normal. ENDOSCOPY: EGD, colonoscopy and capsule endoscopy reports summarized in HPI. IMAGING: - Patient had a CTA of her chest in January 2018 that was negative for pulmonary embolisms. - Patient had a CT abdomen in October 2017, which demonstrated potential nodular- appearing liver and small stable left adrenal nodule consistent with an adenoma. IMPRESSION AND PLAN: Ms. Hansen is a 77-year-old woman with a complicated medical history including multiple medical comorbidities and chronic longstanding iron-deficiency anemia, who presents with symptomatic anemia. 1. Anemia: The anemia appears to be acute on chronic in nature. No overt GI bleeding noted. Prior work-up including EGD, colonoscopy, and VCE were suggestive of small bowel AVMs as probable source. Suspect that this may be similar scenario. Patient currently hemodynamically stable. Her hematocrit corrected relatively well with 2 units arguing against significant ongoing bleeding. This is her second transfusion requirement in past 1-2 months; however. - Continue to monitor CBC and transfuse per primary team - Recommend repeat EGD today to assess for UGI tract etiology of acute on chronic anemia. EGD in 09/2016 did note a small duodenal AVM. Prior notes also mention hx of H pylori, so we can rule out PUD as well. - If EGD is negative and patient remains stable without ongoing transfusion needs or overt bleeding, then I think an outpatient follow-up with Dr Marcial to discuss next steps is appropriate. 2. Possible Cirrhosis: Prior CT scan mentions a nodular-appearing liver and the patient does have a low platelet count. Her LFTs are otherwise normal. Would favor NAFLD as etiology given her metabolic conditions, although full evaluation warranted in setting of new diagnosis of cirrhosis. - I would recommend an abdominal ultrasound and serologic work-up (hepatitis panel, JESUS, AMA, anti-smooth muscle Ab, A1AT phenotype/level) to evaluate for liver disease. - Recommend outpatient discussion re: this diagnosis Thank you very much for this consult. [id number]/[facility] #: [id number] WENDY
--- NOTE | 2018-04-14 19:13 | RAD ---
EXAM: US Abdomen Limited, Right Upper Quadrant EXAM DATE/TIME: 04/14/2018 6:25 PM CLINICAL HISTORY: 77 years old, female; Condition or disease; Liver condition; Cirrhosis; Additional info: Ruq u/s; Pls evaluate for cirrhosis due to ev TECHNIQUE: Real-time ultrasound of the abdomen with image documentation. Examination was focused on the right upper quadrant. COMPARISON: ABD WO CT ABDOMEN W/O 11/02/2017 12:14 PM FINDINGS: Liver: The liver is echogenic, mildly enlarged measuring 22 cm and has a nodular contour. No focal masses. Normal directional flow seen in the portal vein. Gallbladder: The gallbladder is well filled without evidence of stones or wall thickening. Common bile duct: Normal. No stones. No dilation. Pancreas: Visualized pancreas appears normal. Right kidney: The right kidney measures 10.5 cm in length. No ascites seen in the abdomen. IMPRESSION: Cirrhotic liver without focal masses. No gallstones. No ascites. To contact [facility] with a general question: [facility][1] - [phone] For direct physician to physician contact: Physician Hotline - [phone] [facility] ([facility] Facility ID #[id number])
[2018-04-14] MEDS ORDERED: Insulin GLARGINE(*) 1 UNITS UNIT SUBCUT SCH (20:00)
[2018-04-14] MEDS: Omeprazole CAP* 20 MG PO SCH (20:15)
[2018-04-15] MEDS: Levothyroxine TAB* 25 MCG TAB PO SCH (05:21)
[2018-04-15 05:43] LABS: Hematocrit 23 % (35-47); Hemoglobin 7.6 g/dl (12.0-16.0); Mean Corpuscular HGB Conc 33 g/dl (31-36); Mean Corpuscular Hemoglobin 27 pg (27-31); Mean Corpuscular Volume 83 fL (80-97); Mean Platelet Volume 8.3 um3 (7.4-10.4); Platelet Count 116 10^3/ul (150-450); Red Blood Count 2.82 10^6/ul (4.00-5.40); Red Cell Distribution Width 19 % (10.5-15); White Blood Count 6.2 10^3/ul (3.5-10.8)
[2018-04-15] MEDS: Atorvastatin* 10 MG TAB PO SCH (08:52)
[2018-04-15] MEDS: Insulin LISPRO* 1 UNITS UNIT SUBCUT SCH ×2 (08:52→12:06)
[2018-04-15] MEDS: Potassium Chlor TAB* 20 MEQ TAB.ER PO SCH (08:52)
[2018-04-15] MEDS: Omeprazole CAP* 20 MG PO SCH (08:52)
[2018-04-15] MEDS: Bumetanide TAB* 2 MG PO SCH (08:52)
[2018-04-15] MEDS: Insulin GLARGINE(*) 1 UNITS UNIT SUBCUT SCH (08:59)
--- NOTE | 2018-04-15 10:36 | PN ---
Progress Note - Progress Note Date of Service: 04/15/18 Note: GASTROENTEROLOGY FOLLOW-UP Reviewed chart. Hct stable this AM, 24 > 23. No overt bleeding or bowel movement overnight, per nursing. Spoke with Dr Gonzalez this morning. Patient likely to be discharged today given continued stability. EGD performed yesterday late afternoon. Procedure report awaiting moss picker. Briefly, there was no evidence of active, fresh or old blood in upper GI tract to distal duodenum/proximal jejunum. There were small esophageal varices without evidence of bleeding or high risk stigmata. Further supportive of new diagnosis of cirrhosis. Gastric evaluation was unremarkable. Duodenum demonstrated several polyps (hx of previously documented adenomas) including one area that appeared to be a larger polyp (vs nodular mucosa vs duodenal varix ) -- this area was incompletely visualized on the exam due to location. There were several tiny subtle erosions in duodenal bulb, edematous and nodular mucosa in post-bulbar duodenum of unclear significance, and general friability to the mucosa in duodenum. No ulcers or AVMs. Biopsies taken. Clotest from stomach negative for H pylori. Lower suspicion that any of the findings on the EGD are directly related to patient's acute on chronic anemia, although there may be some degree of oozing/blood loss related to the erosions. A small bowel source of blood loss related to AVM remains most likely given history. Discussed with patient following the procedure yesterday that there were no acute findings noted on imaging other than evidence of liver disease. Patient indicates that she had already been told by her primary that she may have liver disease. She already has an appointment with Dr Marcial in May. - Will await duodenal biopsies - Recommend PPI BID x 6-8 weeks given the duodenal erosions (tiny) then decrease to daily. - Consider transfusion to Hgb ~8 given cardiac disease history and concern for slow ongoing GI blood loss. This may provide patient a bit of reserve if she continues to slowly drift down over the next few weeks. - Recommend weekly CBC monitoring for now. Continue iron supplementation. - Patient should schedule closer follow-up with Dr Marcial to discuss next steps given two hospitalizations for acute on chronic anemia in past 1-2 months. May require updated colonoscopy and/or VCE to reassess AVMs with consideration of double balloon enteroscopy depending on findings. Patient can also discuss with Dr Marcial if the duodenal adenomas should undergo resection ( +/- EUS to ensure the area in the C-loop represents adenoma as opposed to duodenal varix). - Patient appears to be well-compensated cirrhotic, favor NAFLD given her underlying metabolic co-morbidities. Serologic work-up for alternate explanations of chronic liver disease pending. Patient is on carvedilol which can be used for variceal management. No evidence of ascites or other features of decompensation. Please call if any further questions. Thank you for this consult. Tonia Singh MD Gastroenterology
--- NOTE | 2018-04-15 11:12 | PRO ---
PROCEDURE REPORT: DATE OF PROCEDURE: 04/14/18 PROCEDURE PERFORMED: EGD with biopsy. INDICATIONS: Patient with longstanding iron-deficiency anemia presents with [id number] anemia. No overt bleeding. History of duodenal AVM and small bowel AVM seen on VCE. Of note, there is mention from a CT scan in October of a nodular-appearing liver. The patient also does have thrombocytopenia raising some concern for cirrhosis. The patient responded well from a blood count standpoint to 2 units of blood during this hospitalization. MEDICATIONS GIVEN: 1. Midazolam 3 mg IV. 2. Fentanyl 25 mcg IV. DESCRIPTION OF PROCEDURE: Full disclosure of risks was reviewed with the patient as detailed on the consent form. The patient was placed in the left lateral decubitus position and monitored with continuous pulse oximetry, capnography, interval blood pressure monitoring, and direct observation. A bite -block was placed between the patient's teeth. A gastroscope was then inserted slowly and carefully down the esophagus, into the stomach, and into the distal duodenum. The patient tolerated the procedure well. Findings are described below. FINDINGS: E: - There were 3 columns of small/medium esophageal varices in the distal esophagus. The varices nearly flatten with insufflation. There was no evidence of recent bleeding or high risk stigmata at these varices. G: - The scope was advanced into the stomach. Mucosa examined in forward and retroflexed views. - There was no fresh or old blood in the stomach. - The stomach was mildly erythematous in the antrum, although there was no portal hypertensive gastropathy or GAVE. - The mucosa appeared to be a bit edematous. - No gastric varices visualized. - Biopsy obtained and sent for CLOtest. D: - The scope was advanced into the duodenum. - In the duodenal bulb, there were several tiny nonbleeding erosions. Biopsies obtained from this area with friability noted. - There were several small adenomatous-appearing polyps in the duodenal bulb and 2nd and 3rd portions. Biopsy obtained from one of these polyps. - In the C-loop of the duodenum on the posterior wall, there was a raised area that was fairly large and difficult to fully assess given the location. I suspect that it may have been a larger polyp vs thickened fold vs duodenal varix (unlikely, but considered given cirrhosis with esophageal varices). Given the inability to see this area fully and possibility of a varix, the decision was made to not biopsy this area. - The scope was then advanced into the distal duodenum and proximal jejunum. The mucosa appeared edematous and a bit nodular in various areas. Biopsies obtained. No AVMs noted. There was bilious fluid. No fresh or old blood. The scope was slowly withdrawn from the patient. Patient tolerated the procedure well. IMPRESSION: 1. Small non-bleeding esophageal varices. 2. Mild gastric antral erythema 3. Several tiny subtle erosions in the duodenal bulb. No bleeding from these erosions, although the mucosa in this general area appears quite friable. 4. Several small adenomatous-appearing polyps in the duodenal bulb in 2nd and 3rd portions. There is also an area that may represent a larger polyp in the C- loop of the duodenum that was not able to be fully evaluated on this exam. 5. Nodular edematous appearance to the post-bulbar duodenum. Biopsies obtained. RECOMMENDATIONS: 1. No clear source of bleeding or iron deficiency anemia identified on this exam. It is possible that she has had some blood loss related to the tiny erosions seen in the duodenal bulb. Biopsies obtained to rule out H. pylori, which according to prior notes is something that the patient has had issues with in the past. Overall; however, I suspect that the patient's known small bowel AVMs are the main source of the GI blood loss. These lesions are not within reach of standard gastroscope or colonoscope. 2. Recommend a PPI be started given the duodenal erosions. An oral twice a day PPI is appropriate for the next 6 to 8 weeks. Patient should then decrease to once daily PPI for now. 3. Assuming the patient remains stable without ongoing transfusion needs or overt bleeding, then she will need to be seen in GI clinic for close follow-up. Clinic discussion can include the role of repeat capsule endoscopy to reassess small bowel AVMs. Patient follows with Dr Marcial. 4. Esophageal varices are consistent with a diagnosis of cirrhosis. Recommend liver disease work-up and ultrasound. [id number]/[facility] #: [id number] [facility]IT[facility]
[2018-04-15 16:03] VITALS: BP 178/78
--- NOTE | 2018-04-15 23:26 | DS ---
DISCHARGE SUMMARY: ADDENDUM: DATE OF ADMISSION: DATE OF DISCHARGE: DISCHARGE MEDICATIONS: As follows: 1. Albuterol HFA inhaler 1 puff inhalation q.4 hours. 2. Bumetanide 2 mg p.o. every day. 3. Insulin glargine 60 units subcutaneously q.a.m. as well as 40 units subcutaneously at bedtime. 4. Synthroid 25 mcg p.o. daily. 5. Potassium chloride 20 mEq p.o. b.i.d. 6. Simvastatin 20 mg p.o. daily. 7. Esme seltzer 1 tab p.o. q.6 hours p.r.n. 8. Carvedilol 25 mg p.o. b.i.d. 9. Ferrous gluconate 325 mg p.o. b.i.d. 10. Multivitamins 1 tab p.o. daily. 11. Nitroglycerin 0.4 mg sublingual q.5 minutes p.r.n. 12. Nystatin topical powder 1 application topically b.i.d. 13. Pantoprazole 40 mg p.o. b.i.d. 14. Terazosin 10 mg p.o. at bedtime. 15. Triamcinolone 1 application topically daily. 16. Vitamin B12. [id number]/[facility] #: [id number] [facility]AMPUSLinda
--- NOTE | 2018-04-15 23:42 | DS ---
CC :Dr. Kiki Moore; Dr. Duke Waggoner; Dr. Marcial; Dr. Neena Moyer; Dr. Beckwith. DISCHARGE SUMMARY: DATE OF ADMISSION: DATE OF DISCHARGE: 04/15/18 DISCHARGE DIAGNOSES: 1. Iron-deficiency anemia, likely due to chronic intermittent bleed from known arteriovenous malform ation, status post EGD showing no evidence of active bleeding; esophageal varices without evidence of bleeding, duodenal polyps, duodenal bulb erosion (SYD test negative); no ulcer nor arteriovenous mal formation seen on EGD. 2. Cirrhosis, likely due to non-alcoholic fatty liver disease (other rarer causes being rule out wit h results pending). 3. Chest pain, resolved, likely due to symptomatic iron deficiency anemia with troponins being negat raffaele x3. 4. Diabetes mellitus, history of, well controlled. 5. Acute on chronic renal insufficiency. HISTORY OF PRESENT ILLNESS/HOSPITAL COURSE: The patient is a 77-year-old lady with a history of diabetes, iron-deficiency anemia, and systolic heart failure, who presented with one-day of chest pain and shortness of breath on exertion along with easy fatigability and was found to be a nemic with a hemoglobin of 6.1. She had been transfused with a total of two units of PRBC during admission and had an EGD by Dr. Beckwith, who saw no active bleeding on EGD with evidence of esophage al varices without any evidence of recent bleed, duodenal polyps, duodenal bulb erosion with SYD test being negative and no ulcerations nor AVMs. Likely pointing to chronic intermittent bleeding due to known AVM from previous video-capsule endoscopy. Hence given above, she had been advised to take pa ntoprazole twice daily for eight weeks and was transfused with one unit of PRBC totalling to two prio r to her discharge and had been recommended to repeat a CBC this following Tuesday on 05/20/18 and to discuss results with her PCP. She was advised to call Dr. Marcial's office to reschedule a follow -up visit earlier rather than May and to enquire a repeat colonoscopy and/or video capsule endos copy to reassess AVMs with consideration of double balloon enteroscopy depending on the findings. e patient was also discussed the results of her cirrhotic workup given that she found to be thromboc ytopenic with esophageal varices along with an abdominal ultrasound, all consistent with cirrhosis li damien due to an NAFLD but other rare cause of cirrhosis is currently pending including viral hepatitis screen. Her MELD score prior to her discharge was calculated to be 10 and hence well compensated at this time. She appears well prior to discharge and is happy with the care that she has been given. She had been advised to follow up and call her PCP within three days post DC, to call Dr. Marcial's o ffice and schedule an appointment sooner and to call [phone] to make and confirm such an appointment . She is to discuss the possible outpatient repeat colonoscopy or video capsule endoscopy and subseq uent consideration for double balloon enteroscopy depending on results. She was also asked to discus s whether her duodenal adenomas will need to be resected and to discuss her new diagnosis of cirrhosi s which is likely due to NAFLD. As mentioned, laboratory tests are still pending to evaluate her cir rhosis. She was advised that if her symptoms resume or develop new ones or feel unwell for any reaso n to call her PCP and if her PCP cannot entertain her due to scheduling issues alone, to call [facility] if the issue is nonemergent. She has been advised to call my office regarding any quest ions, concerns, or further clarifications regarding her discharge plans and prescriptions and to take her medications as prescribed. She was also advised to repeat her blood draws on Tuesday04/19/18 and to discuss the results with Dr. Moyer. Her case was discussed in detail with Dr. Beckwith as we ll as with Dr. Moyer, especially earlier on during her hospital stay. REVIEW OF SYSTEMS: She denied any current headaches, dizziness, fevers, chills, nausea, vomiting, ch est pain, shortness of breath, increased cough and/or sputum production, abdominal pain, diarrhea, co nstipation, pain and/or increased frequency of urination, myalgias or arthralgias, throat pain, or ne w skin lesions. The rest of the 14-point review of systems are otherwise unremarkable. PHYSICAL EXAMINATION: Reveals the most recent vital signs of records with blood pressure of 155/75, 99.1 degrees Fahrenheit; 88 beats per minute heart rate, 16 per minute respiratory rate. General Maco earance: The patient is awake, alert and oriented x3, not in acute distress, obese. HEENT: Normoce phalic, atraumatic. PERRLA. Extraocular muscles intact. Negative for icterus. Moist oral mucosa. N egative throat erythema. Neck is soft, supple with no cervical lymphadenopathy. No JVD. Heart: S1, S2 within normal limits. Regular rate and rhythm. No murmurs, rubs, or gallops. Chest: Clear to auscultation bilaterally. Good air entry. No wheezes, rales, or rhonchi. Abdomen is soft, nondiste nded, nontender. Normoactive bowel sounds x4 quadrants. Extremities: No cyanosis, clubbing with 1+ bilateral lower extremity edema. Skin is warm to touch. Psychiatric: No active psychosis, depressi on, suicidal or homicidal ideation. TIME SPENT: The total time spent evaluating the patient, reviewing pertinent data, and appropriate d ocumentation is 60 minutes. [id number]/[facility] #: [id number]
== END 2018-04-15 16:03 | disposition home or self-care (01) ==
LOC: ED 22:08 → MEDTELE 04-14 00:54
PROVIDERS: ADMIT Internal Medicine; ATTEND Student in an Organized Health Care Education/Training Program
DX: D13.30 Benign neoplasm of unspecified part of small intestine (principal); K31.7 Polyp of stomach and duodenum; D50.9 Iron deficiency anemia, unspecified; E11.9 Type 2 diabetes mellitus without complications; R07.9 Chest pain, unspecified; I50.20 Unspecified systolic (congestive) heart failure; J44.9 Chronic obstructive pulmonary disease, unspecified; N18.9 Chronic kidney disease, unspecified; I10 Essential (primary) hypertension; E03.9 Hypothyroidism, unspecified; E78.5 Hyperlipidemia, unspecified; M48.00 Spinal stenosis, site unspecified; Z79.82 Long term (current) use of aspirin
CPT/HCPCS: 36415; 36430; 71045; 76705; 80053; 80074; 82103; 82104; 82270; 82607; 83605; 83615; 83735; 84100; 84484; 85025; 85027; 85060; 85610; 85730; 86038; 86705; 86709; 86803; 86850; 86900; 86901; 86922; 87077; 88305; 99156; 99157; 99283; A9270-GY; G0378; G8978-GP-CI; G8979-GP-CI; G8980-GP-CI; J2250; J3010; P9040

== ENCOUNTER 2018-04-20 16:50 | Observation (INO) | payer MEDICARE, OTHER ==
[2018-04-20 17:56] LABS: ABS Basophils 0.1 10^3/ul (0-0.2); ABS Eosinophils 0.2 10^3/ul (0-0.6); ABS Lymphocytes 0.8 10^3/ul (1.0-4.8); ABS Monocytes 0.4 10^3/ul (0-0.8); ABS Neutrophils 3.8 10^3/ul (1.5-7.7); ABS Nucleated RBC 0 10^3/ul; Eosinophil % 3.9 % (0-6); Hematocrit 26 % (35-47); Lymphocyte % 15.6 % (25-47); Mean Corpuscular HGB Conc 31 g/dl (31-36); Mean Corpuscular Hemoglobin 27 pg (27-31); Mean Corpuscular Volume 87 fL (80-97); Mean Platelet Volume 9.5 um3 (7.4-10.4); Nucleated Red Blood Cells % 0.1; Platelet Count 117 10^3/ul (150-450); Red Blood Count 2.95 10^6/ul (4.00-5.40); Red Cell Distribution Width 18 % (10.5-15); White Blood Count 5.2 10^3/ul (3.5-10.8)
[2018-04-20 18:09] LABS: EGFR Non-African American 53.3 (>60)
--- NOTE | 2018-04-20 18:12 | ED ---
HPI Chest Pain - HPI Summary HPI Summary: This patient is a 77 year old F presenting [facility] accompanied by her with a chief complaint of waxing and waning 4/10 central/L sided CP since this AM. NTG alleviated sx temporarily, took another one at 1430, and another at 1530 ; was told if she has to take 3, she should go to the ED. PMHx CHF COPD, cardiomyopathy, DM, HTN, anemia, transfusions. Pt was discharged from hospital for lightheadedness, renal failure, and cirrhosis. PMHx anemia, transfusions. She denies radiation to jaw or arm, SOB, smoking, PMHx AL, SHx stent or CABG. - History of Current Complaint Chief Complaint: EDChestPainROMI Time Seen by Provider: 04/20/18 17:19 Hx Obtained From: Patient Onset/Duration: Started Hours Ago, Atraumatic, Still Present Timing: Constant - but waxing and waning Initial Severity: Moderate Current Severity: Mild Pain Intensity: 4 Pain Scale Used: 0-10 Numeric Chest Pain Location: Mid Sternal, Left Anterior Chest Pain Radiates: No Character: Heaviness Aggravating Factor(s): Nothing Alleviating Factor(s): NTG 123 Associated Signs and Symptoms: Positive: Chest Pain. Negative: Shortness of Breath, Fever Related History: Healthcare Acquired Pneumonia: Inpatient Status Within Last 30 Days, Obesity - Additional Pertinent History Primary Care Physician: JASON - Allergy/Home Medications Allergies/Adverse Reactions: Allergies Allergy/AdvReac Type Severity Reaction Status Date / Time captopril Allergy Severe Hives Verified 04/20/18 17:39 PMH/Surg Hx/FS Hx/Imm Hx Endocrine/Hematology History: Reports: Hx Blood Transfusions, Hx Diabetes, Hx Anemia - chronic iron infusions Cardiovascular History: Reports: Hx Congestive Heart Failure, Hx Coronary Artery Disease, Hx Hypercholesterolemia, Hx Hypertension, Other Cardiovascular Problems/Disorders - cardiomyopathy Denies: Hx Myocardial Infarction, Hx Pacemaker/ICD Respiratory History: Reports: Hx Asthma, Hx Chronic Obstructive Pulmonary Disease (COPD), Hx Sleep Apnea, Other Respiratory Problems/Disorders - emphysema GI History: Reports: Hx Cirrhosis, Hx Gastroesophageal Reflux Disease, Hx Gastrointestinal Bleed, Hx Hiatal Hernia - s/p repair, Other GI Disorders - HELICOBACTER INFECTION History: Reports: Hx Renal Disease, Other Problems/Disorders - CKD stage 3 Musculoskeletal History: Reports: Hx Arthritis, Hx Back Problems, Other Musculoskeletal History - spinal stenosis Sensory History: Reports: Hx Cataracts - surgery with implants bilat eyes 96, Hx Contacts or Glasses - reading glasses Denies: Hx Deafness, Hx Hearing Aid Opthamlomology History: Reports: Hx Cataracts - surgery with implants bilat eyes 96, Hx Contacts or Glasses - reading glasses Neurological History: Reports: Other Neuro Impairments/Disorders - vertigo Psychiatric History: Reports: Other Psychiatric Issues/Disorders - PT REPORTS "STRESS" AND SAYS HER MD GAVE HER A MED FOR IT, UNSURE WHAT Denies: Hx Panic Disorder - Surgical History Surgery Procedure, Year, and Place: HERNIA. HYSTERECTOMY. CATERACTS. CARPAL TUNNEL. CYSTS REMOVED FROM BILATERAL ARMPITS. RTC RT. LT FOOT SURGERY - Immunization History Date of Tetanus Vaccine: > 10 yers Date of Influenza Vaccine: [id number] Infectious Disease History: No Infectious Disease History: Denies: Traveled Outside the [place] in Last 30 Days - Family History Known Family History: Positive: Other - Yes - CHF (Mother) - Social History Occupation: Retired Lives: With Family Alcohol Use: None Substance Use Type: Reports: None Hx Tobacco Use: Yes Smoking Status (MU): Former Smoker Have You Smoked in the Last Year: No Review of Systems Negative: Fever, Chills Negative: Erythema Negative: Sore Throat Positive: Chest Pain Negative: Shortness Of Breath, Cough Negative: Abdominal Pain, Vomiting, Nausea Negative: dysuria, hematuria Negative: Myalgia, Edema Negative: Rash Neurological: Other - NEGATIVE: Dizziness All Other Systems Reviewed And Are Negative: Yes Physical Exam - Summary Physical Exam Summary: Constitutional: Well-developed, obese, Alert. (-) Distressed Skin: Warm, Dry HENT: Normocephalic; Atraumatic Eyes: Conjunctiva normal Neck: Musculoskeletal ROM normal neck. (-) JVD, (-) Stridor, (-) Tracheal deviation Cardio: Rhythm regular, rate normal, Heart sounds normal; Intact distal pulses; The pedal pulses are 2+ and symmetric. Radial pulses are 2+ and symmetric. (-) Murmur Pulmonary/Chest wall: Effort normal. (-) Respiratory distress, (-) Wheezes, (-) Rales Abd: Soft, (-) epigastric tenderness, (-) Distension, (-) Guarding, (-) Rebound Musculoskeletal: (-) Edema, venous stasis changes of LEs Lymph: (-) Cervical adenopathy Neuro: Alert, Oriented x3 Psych: Mood and affect Normal Triage Information Reviewed: Yes Vital Signs On Initial Exam: Initial Vitals Temp Pulse Resp BP Pulse Ox 98.4 F 68 16 122/53 100 04/20/18 17:01 04/20/18 17:01 04/20/18 17:01 04/20/18 17:01 04/20/18 17:01 Vital Signs Reviewed: Yes Diagnostics - Vital Signs Vital Signs Temp Pulse Resp BP Pulse Ox 04/20/18 17:27 69 10 135/60 99 04/20/18 17:25 65 99 04/20/18 17:01 98.4 F 68 16 122/53 100 - Laboratory Lab Results: Lab Results 04/20/18 Range/Units 17:37 WBC 5.2 (3.5-10.8) 10^3/ul RBC 2.95 L (4.00-5.40) 10^6/ul Hgb 8.0 L (12.0-16.0) g/dl Hct 26 L (35-47) % MCV 87 (80-97) fL MCH 27 (27-31) pg MCHC 31 (31-36) g/dl RDW 18 H (10.5-15) % Plt Count 117 L (150-450) 10^3/ul MPV 9.5 (7.4-10.4) um3 Neut % (Auto) 71.9 (38-83) % Lymph % (Auto) 15.6 L (25-47) % [place] % (Auto) 7.4 H (0-7) % Eos % (Auto) 3.9 (0-6) % Baso % (Auto) 1.2 (0-2) % Absolute Neuts (auto) 3.8 (1.5-7.7) 10^3/ul Absolute Lymphs (auto) 0.8 L (1.0-4.8) 10^3/ul Absolute Monos (auto) 0.4 (0-0.8) 10^3/ul Absolute Eos (auto) 0.2 (0-0.6) 10^3/ul Absolute Basos (auto) 0.1 (0-0.2) 10^3/ul Absolute Nucleated RBC 0 10^3/ul Nucleated RBC % 0.1 Result Diagrams: 04/20/18 17:37 04/20/18 17:37 Lab Statement: Any lab studies that have been ordered have been reviewed, and results considered in the medical decision making process. - Radiology CXR Radiology Interpretation Completed By: ED Physician Summary of Radiographic Findings: No acute disease. Pending official imaging report. - EKG 1758 Cardiac Rate: NL - 61 EKG Rhythm: Sinus Rhythm ST Segment: Normal Ectopy: None Summary of EKG Findings: No STEMI. Chest Pain Course/Dx - Course Course Of Treatment: A 77-year-old F presents to the ED with a CC of parasternal (L) 4/10 waxing and waning CP since this AM. (+) alleviation with NTG. (-) SOB, pain radiation. PMHx DM, HTN, CHF, renal disease, cirrhosis, COPD , anemia, transfusions. A CXR was (-). An EKG reveals NSR at 61 BPM with no STEMI. In the ED course, pt was given NTG. Pt labs show low RBC, low H&H, high RDW, low plt count, low lymph %, high mono %, low abs lymphs, high creat, high glucose, high Ca2+, high alkaline phosphotase, low albumin, and low total protein. - Diagnoses Provider Diagnoses: Chest pain, unspecified - Provider Notifications Discussed Care Of Patient With: Moe Villarreal Time Discussed With Above Provider: 18:47 Instructed by Provider To: Other - Accepts admission. Discharge - Sign-Out/Discharge Documenting (check all that apply): Patient Departure - admit - Discharge Plan Condition: Fair Disposition: ADMITTED TO [facility] Referrals: Neena Moyer MD [Primary Care Provider] - - Attestation Statements Document Initiated by Scribe: Yes Documenting Scribe: Lexx Hernandez Provider For Whom Scribe is Documenting (Include Credential): Dr. Valente Hunter MD Scribe Attestation: Lexx Benitez scribed for Dr. Valente Hunter MD on 04/20/18 at 1847.
--- NOTE | 2018-04-20 18:15 | RAD ---
HISTORY: CP COMPARISONS: April 13, 2018 VIEWS: 2: Frontal and lateral views of the chest. FINDINGS: CARDIOMEDIASTINAL SILHOUETTE: The cardiomediastinal silhouette is normal. BERNARDA: The bernarda are normal. PLEURA: The costophrenic angles are sharp. No pleural abnormalities are noted. LUNG PARENCHYMA: The lungs are clear. ABDOMEN: The upper abdomen is clear. There is no subphrenic gas. BONES AND SOFT TISSUES: No bone or soft tissue abnormalities are noted. OTHER: None. IMPRESSION: NO ACTIVE CARDIOPULMONARY DISEASE. R0
[2018-04-20] MEDS ORDERED: Acetaminophen TAB* 325 MG PO PRN (19:40)
[2018-04-20] MEDS ORDERED: Dextrose 50% Syringe 50 ML* 25 GM/50 ML SYRINGE IV PUSH PRN (19:40)
[2018-04-20] MEDS ORDERED: Ondansetron INJ* 2 MG/ML VIAL IV PRN (19:40)
[2018-04-20] MEDS ORDERED: Albuterol HFA INHALER* 8 gm MDI INH PRN (19:44)
[2018-04-20] MEDS: Nitroglycerin TAB 0.4 MG* 0.4 MG TAB SL ONE ×2 (19:52→20:24)
[2018-04-20] MEDS: Ferrous Gluconate TAB* 324 MG TAB PO SCH (21:51)
[2018-04-20] MEDS: Carvedilol TAB* 25 MG PO SCH (21:52)
[2018-04-20] MEDS: Terazosin CAP* 5 MG PO SCH (21:52)
[2018-04-20] MEDS: Potassium Chlor TAB* 20 MEQ TAB.ER PO SCH (21:52)
[2018-04-20] MEDS: Insulin GLARGINE(*) 1 UNITS UNIT SUBCUT SCH (21:52)
--- NOTE | 2018-04-20 22:28 | HP ---
CC: Dr. Moyer; Dr. Horton * HISTORY AND PHYSICAL: DATE OF ADMISSION: 04/20/18 PRIMARY CARE PROVIDER: Dr. Moyer. ATTENDING PHYSICIAN WHILE IN THE HOSPITAL: Dr. Fiorella Che * (report dictated by Vince Alcala NP). CHIEF COMPLAINT: Chest pain. HISTORY OF PRESENT ILLNESS: Ms. Hansen is a 77-year-old female patient with multiple medical problems, who was just here recently for presumed GI bleed. Source was unable to be found. She presents today stating that round 10 o'clock , she started noticing having sharp electrical pains in the left side of her chest. She said they have been going intermittently off and on all day long, says that they just were not getting better, but she had no associated symptoms of shortness of breath or nausea or diaphoresis. She says the pain was reproducible in the ambulance. She was told by her primary should she have any chest discomfort, she should come into the ER. She denies any recent fevers or chills. No recent coughing. She denies having any abdominal discomfort. She says that she has not been having any stomach discomfort. She denied any recent URI symptoms or any recent fevers or chills. She says the pain does not get better with sitting up or lying flat. She denies having any lightheadedness or feeling like she was going to faint. Denied having any palpitations. She states that she was concerned because of the chest discomfort and came into the ED for evaluation. She does admit to having dark stools, but she says they are always dark because she is on iron supplementation. She does admit to having gained 4 pounds. She denies any orthopnea or nocturnal dyspnea. She says she always sits up to sleep because of having lower back pain. She came into the ED, was evaluated for the chest pain, she took 2 nitro, and because of her risk factors, we were asked to evaluate for admission. PAST MEDICAL HISTORY: Significant for: 1. Anemia. 2. Diabetes. 3. CHF, last EF 40% to 45%. 4. CKD. 5. Hypertension. 6. Hypothyroidism. 7. COPD. 8. Hyperlipidemia. 9. Spinal stenosis. 10. Cardiomyopathy. 11. 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 12. Arthritis. 13. Neuropathy. 14. Hiatal hernia. PAST SURGICAL HISTORY: The patient has had: 1. Hernia repair. 2. Cataract extraction. 3. Partial hysterectomy. 4. Rotator cuff. 5. ORIF of the foot. 6. Cardiac catheterization. 7. Carpal tunnel. HOME MEDICATIONS: According to the list provided include: 1. Vitamin 1000 mcg p.o. daily. 2. Triamcinolone cream 1 application topically daily. 3. Hytrin 10 mg at bedtime. 4. Zocor 20 mg daily. 5. Potassium 20 mEq p.o. b.i.d. 6. Protonix 40 mg p.o. b.i.d. 7. Nystatin 1 application topically b.i.d. 8. Nitro 0.4 mg sublingual every 5 minutes p.r.n. chest pain. 9. Multivitamin 1 tablet daily. 10. Synthroid 25 mcg daily. 11. Lantus 40 units at 2000 and 60 units in the morning. 12. Ferrous gluconate 325 mg p.o. b.i.d. 13. Coreg 25 mg p.o. b.i.d. 14. Bumex 2 mg p.o. daily. 15. [place] 1 tablet every 6 hours as needed. 16. Albuterol 1 puff inhaled every 4 hours as needed. ALLERGIES TO MEDICATIONS: Include CAPTOPRIL. FAMILY HISTORY: Mother had a history of CHF, diabetes, dementia. SOCIAL HISTORY: The patient is a former smoker. She does not drink alcohol. The surrogate decision maker is her , Alejandro. REVIEW OF SYSTEMS: There is no documented fever. She denies having any significant weight change. There is no double vision. She denies having any ear discharge. There is no rhinorrhea. There is no sore throat. There was no thyroid enlargement. She did admit to having atypical chest pain per my HPI. She denies having any abdominal discomfort. There was no nausea, no vomiting. No dysuria, no frequency. There was no seizure, no loss of consciousness. No pruritus and no skin ulcerations. Review of 14 systems was completed, all others negative. PHYSICAL EXAMINATION GENERAL: At this time, Ms. Hansen is a 77-year-old female patient. She appears to be well nourished and well developed. She is sitting in the ED stretcher. She does not appear to be in any acute distress. VITAL SIGNS: Blood pressure 168/71, pulse 63, respirations 18, O2 sat 98% on room air, temperature 98.4. HEENT: Head: Atraumatic and normocephalic. Eyes: EOMs are intact. Sclerae anicteric and not pale. Throat: Oral mucosa appears to be moist. No oropharyngeal erythema. NECK: Supple. LUNGS: Clear to auscultation bilaterally. There were no wheezes, rales, or rhonchi. HEART: Sounds S1, S2. She had a regular rate and rhythm. No murmurs, rubs, or gallops. ABDOMEN: Soft, flat, nontender. Bowel sounds were present. EXTREMITIES: Pulses were 2+ throughout. She is moving all 4 extremities with 5 /5 strength. She does have tenderness elicited to the left chest wall. NEUROLOGICAL: She is awake. She is alert. She is oriented x3. Tongue midline. Senior Sales Executive were equal. She had no gross focal deficits. SKIN: Grossly intact. DIAGNOSTIC STUDIES/LAB DATA: WBC 5.2, RBC of 2.95, hemoglobin of 8.0 which is right near her baseline of 8, the hematocrit was 26, platelet count was 117. The sodium was 141, potassium was 4.2, chloride of 108, bicarb 29, BUN 20, creatinine 1.01, glucose 125, lactic 0.7, calcium 8.1. Total bili 0.4, AST 33, ALT 27, alk phos 111. Troponin 0.01. She did have imaging here in the ED, chest x-ray, which shows no active cardiopulmonary disease. There was an EKG obtained today, which shows a normal sinus rhythm with a rate of 61. She did have T-wave inversions in lead I, which she has had previously and flat T-waves in V6, which she has had previously. This appears to be unchanged. She had a cath a year ago, which showed normal coronaries. Last echo with EF of 40% to 45%. Old medical records were reviewed. ASSESSMENT AND PLAN: Ms. Hansen is a 77-year-old female patient coming into the ED today with complaints of chest discomfort, which is reproducible and atypical. We were asked to evaluate and consult. Recommendations at this point are: 1. Chest pain. At this point, again, the pain does appear to be atypical. My concern here is that she does have significant risk factors; however, it is reassuring that the pain is reproducible and the fact that she has had clean coronaries. I would go ahead minimally to cycle her troponins. I do not think she needs a stress test at this point because if it was positive and we were to proceed with cath and she were to need possible stent, again this would be difficult to perform given the fact that she has had chronic bleeding arteriovenous malformation and again the pain is very atypical. I do think she deserves cycle troponins, p.r.n. Tylenol and avoiding NSAIDs. I think this could be a costochondritis. We can get formal Cardiology consult in the morning to see if they have any other suggestions. With a clean cath a year ago , negative troponin and unchanged EKG, the chance of this being ischemic disease is less likely. My plan at this point again is to continue to follow closely and continue to monitor. 2. Anemia. Her H and H are stable. We will repeat H and H later tonight and follow. 3. Diabetes. I will continue Lantus and sliding scale. 4. History of congestive heart failure. She did elicit a 4-pound weight gain, but she sounds clear to me. She does not have any pitting edema. We will continue her Bumex. We will check daily weights and monitor. 5. Chronic kidney disease. Creatinine is stable. Continue to follow. 6. Hypertension. Continue meds as prescribed. 7. Hypothyroidism. Continue her Synthroid. 8. Chronic obstructive pulmonary disease. Continue meds as prescribed. 9. Hyperlipidemia. Continue statin therapy. 10. Spinal stenosis. Continue p.r.n. pain management. 11. History of cardiomyopathy, EF 40% to 45%. Diurese as needed. Continue meds as prescribed. 12. History of cirrhosis. Workup is ensuing. Follow up with PCP. It appears to be stable currently. 13. Arthritis. Continue meds as prescribed. 14. Neuropathy. Continue her current medical regimen. 15. History of hiatal hernia. Continue PPI therapy. 16. History of recent GI bleed. Again, we will trend the troponins. Because of this, I am just going to put her on SCDs for DVT prophylaxis. 17. Code status: Full code. 18. Fluids, electrolytes, and nutrition: She can have a consistent carb diet. 19. DVT prophylaxis: She can have SCDs. TIME SPENT: Time spent on the admission was 60 minutes, greater than half the time was spent [id number] with the patient obtaining my history and physical, other half time was spent going over the plan of care with the patient and implementing the plan of care. I discussed the plan of care with my attending, Dr. Che; she is in agreement. VINCE ALCALA, DEVOPS ENGINEER [id number]/[facility] #: [id number] WENDY
[2018-04-21 01:34] LABS: Hematocrit 25 % (35-47); Hemoglobin 7.8 g/dl (12.0-16.0)
[2018-04-21] MEDS: Levothyroxine TAB* 25 MCG TAB PO SCH (06:44)
[2018-04-21 07:00] LABS: ABS Basophils 0.1 10^3/ul (0-0.2); ABS Eosinophils 0.3 10^3/ul (0-0.6); ABS Lymphocytes 0.7 10^3/ul (1.0-4.8); ABS Monocytes 0.4 10^3/ul (0-0.8); ABS Neutrophils 3.5 10^3/ul (1.5-7.7); ABS Nucleated RBC 0 10^3/ul; Eosinophil % 5.2 % (0-6); Hematocrit 25 % (35-47); Hemoglobin 7.9 g/dl (12.0-16.0); Lymphocyte % 14.5 % (25-47); Mean Corpuscular HGB Conc 32 g/dl (31-36); Mean Corpuscular Hemoglobin 27 pg (27-31); Mean Corpuscular Volume 86 fL (80-97); Mean Platelet Volume 9.5 um3 (7.4-10.4); Nucleated Red Blood Cells % 0.1; Platelet Count 122 10^3/ul (150-450); Red Blood Count 2.89 10^6/ul (4.00-5.40); Red Cell Distribution Width 18 % (10.5-15)
[2018-04-21 07:42] LABS: EGFR Non-African American 59.4 (>60)
[2018-04-21] MEDS: Insulin LISPRO* 1 UNITS UNIT SUBCUT SCH ×3 (08:18→18:23)
[2018-04-21] MEDS: Insulin GLARGINE(*) 1 UNITS UNIT SUBCUT SCH ×2 (08:36→19:56)
[2018-04-21] MEDS: Omeprazole CAP* 20 MG PO SCH (08:37)
[2018-04-21] MEDS: Bumetanide TAB* 2 MG PO SCH (08:37)
[2018-04-21] MEDS: Carvedilol TAB* 25 MG PO SCH ×2 (08:38→19:56)
[2018-04-21] MEDS: Ferrous Gluconate TAB* 324 MG TAB PO SCH ×2 (08:38→19:56)
[2018-04-21] MEDS: Potassium Chlor TAB* 20 MEQ TAB.ER PO SCH ×2 (08:38→19:56)
[2018-04-21] MEDS: Atorvastatin* 10 MG TAB PO SCH (08:39)
--- NOTE | 2018-04-21 18:08 | ECHO ---
Patient: TOSIN CASTRO [facility] Rec#: [id number] : 1940 Date: 04/21/2018 Age: 77y Height: 168 cm / 66.1 in Weight: 100 kg / 220.4 lbs Sex: F BSA: 2.1 Room#: [facility] Admit Date#: 04/21/2018 Type: Inpatient Referring: Rajat Gonzalez Reading: Lissy Tompkins MD Guide Domestic Tour: Enid Thomas RN RDCS CC: Swapnil Horton MD Transthoracic Echocardiogram Indication: Chest pain BP: 153/61 HR: 67 Rhythm: NSR Findings History: HTN, HLD, DM, cardiomyopathy, CHF, CKD, COPD, ONUR, spinal stenosis Technical Comments: The study is technically limited due to patient body habitus. The study is technically limited due to the patient's history of COPD. Left Ventricle: The left ventricular chamber size is normal. Moderate concentric left ventricular hypertrophy is observed. There is global hypokinesis of the left ventricle with minor regional variation. There is mildly decreased left ventricular systolic function. The estimated ejection fraction is 45-50%. Abnormal left ventricular diastolic filling is observed, consistent with impaired relaxation. Left Atrium: The left atrium is mildly dilated. Right Ventricle: The right ventricular cavity size is normal. The right ventricular global systolic function is low normal. Right Atrium: The right atrium is mildly dilated. Aortic Valve: The aortic valve is trileaflet. The aortic valve leaflets are mildly thickened. There is no evidence of aortic regurgitation. There is no evidence of aortic stenosis. Mitral Valve: The mitral valve leaflets are mildly thickened. There is a trace of mitral regurgitation. There is no evidence of mitral stenosis. Tricuspid Valve: The tricuspid valve leaflets are normal. There is trace to mild tricuspid regurgitation. Unable to estimate the right ventricular systolic pressure. There is no tricuspid stenosis. Pulmonic Valve: The pulmonic valve appears normal. There is a trace pulmonic regurgitation. There is no pulmonic stenosis. Pericardium: A trivial pericardial effusion is visualized.No hemodynamic compromise. A pericardial fat pad is visualized. Aorta: There is no dilatation of the ascending aorta. There is no dilatation of the aortic arch. There is no dilation of the aortic root. Pulmonary Artery: The main pulmonary artery appears normal. Venous: The venous system is not well visualized. The inferior vena cava is not visualized. Summary: There are no significant changes when compared to the previous study done on 05/09/2017. Now trivial pericardial effusion instead of no sig effusion then.Otherwise no overt sig changes. Conclusions The left ventricular chamber size is normal. Moderate concentric left ventricular hypertrophy is observed. There is global hypokinesis of the left ventricle with minor regional variation. There is mildly decreased left ventricular systolic function. The estimated ejection fraction is 45-50%. Abnormal left ventricular diastolic filling is observed, consistent with impaired relaxation. The left atrium is mildly dilated. The right atrium is mildly dilated. There is a trace of mitral regurgitation. There is trace to mild tricuspid regurgitation. Unable to estimate the right ventricular systolic pressure. There is a trace pulmonic regurgitation. A trivial pericardial effusion is visualized.No hemodynamic compromise. A pericardial fat pad is visualized. There are no significant changes when compared to the previous study done on 05/09/2017. Now trivial pericardial effusion instead of no sig effusion then.Otherwise no overt sig changes. Measurements Name Value Normal Range RVIDd (AP) 2D 2.5 cm (0.9 - 2.6) RVDdMajor (2D) 3.1 cm (2.2 - 4.4) RAd ISD 4CH 5.2 cm (3.4 - 4.9) RA (A4C)W 3.6 cm (2.9 - 4.6) IVSd (2D) 1.4 cm (0.6 - 1) LVPWd (2D) 1.4 cm (0.6 - 1) LVIDd (2D) 5 cm (3.6 - 5.4) LVIDs (2D) 3.5 cm - LV FS (2D) 30 % (25 - 45) Aortic Annulus 1.9 cm (1.4 - 2.6) Ao root diameter (2D) 2.7 cm (2.1 - 3.5) Ascending Ao 2.8 cm (2.1 - 3.4) Aortic arch 1.9 cm (1.8 - 3.4) LA dimension (AP) 2D 3.7 cm (2.3 - 3.8) LAd ISD 4CH 5.6 cm (2.9 - 5.3) LA ISD 4CH W 4.5 cm (2.5 - 4.5) Name Value Normal Range LA ESV BP (A/L) index 35 ml/m2 - Name Value Normal Range MV E-wave Vmax 0.66 m/sec - MV deceleration time 335 msec - MV A-wave Vmax 1.1 m/sec - MV E:A ratio 0.6 ratio - LV septal e' Vmax 0.05 m/sec - LV lateral e' Vmax 0.06 m/sec - LV E:e' septal ratio 13.2 ratio - LV E:e' lateral ratio 11 ratio - Name Value Normal Range AV Vmax 1.7 m/sec - AV VTI 37.8 cm - AV peak gradient 12 mmHg - AV mean gradient 6 mmHg - LVOT Vmax 1.1 m/sec - LVOT VTI 24.6 cm - LVOT peak gradient 5 mmHg - LVOT mean gradient 3 mmHg - LISA Vmax 0.82 m/sec - Name Value Normal Range PV Vmax 0.96 m/sec -
--- NOTE | 2018-04-21 18:18 | PN ---
Subjective Date of Service: 04/21/18 Interval History: Pt seen and examined. Meds and labs reviewed. CC: Reproducible CP similar to the one on previous D/C. However, quality has changed from deep heavy pain from last admission to feeling of her heart getting electrocuted or flicked when her chest wall is touched ROS: Denied REED/dizziness, F/C, N/V, SOB, increased cough, sputum production, abd pain, diarrhea, constipation, dysuria, myalgias, arthralgias, throat pain, and new skin lesions. The rest of the 14 point ROS are unremarkable. PHYSICAL EXAM: GEN APPEARANCE: Awake, not in acute distress, obese HEENT: NC/AT, PERRLA, moist oral mucosa, (-) throat erythema NECK: Soft, supple, (-) cervical LAD, (-)JVD HEART: S1S2 WNL, RRR, No MRG CHEST: CTA, BL, GAE, No W/R/R, (+)Chest wall tenderness, left precordium ABD: Soft, ND/NT, NABS 4x Q EXT: No C/C/E SKIN: Warm to touch PSYCH: No active psychosis, hallucinations, depression, SI/HI Objective Active Medications: Acetaminophen (Tylenol Tab*) 650 mg PO Q4H PRN PRN Reason: FEVER/PAIN Albuterol (Ventolin Hfa Inhaler*) 1 puff INH Q4H PRN PRN Reason: SOB/WHEEZING Atorvastatin Calcium (Lipitor*) 10 mg PO DAILY [facility] Last Admin: 04/21/18 08:39 Dose: 10 mg Bumetanide (Bumex Tab*) 2 mg PO DAILY [facility] Last Admin: 04/21/18 08:37 Dose: 2 mg Carvedilol (Coreg Tab*) 25 mg PO BID [facility] Last Admin: 04/21/18 08:38 Dose: 25 mg Dextrose (D50w Syringe 50 Ml*) 12.5 gm IV PUSH .FOR FS < 60 - SS PRN PRN Reason: FS < 60 Ferrous Gluconate (Fergon Tab*) 324 mg PO BID [facility] Last Admin: 04/21/18 08:38 Dose: 324 mg Insulin Glargine (Lantus(*)) 60 units SUBCUT QAM [facility] Last Admin: 04/21/18 08:36 Dose: 60 units Insulin Glargine (Lantus(*)) 40 units SUBCUT 1999 [facility] Last Admin: 04/20/18 21:52 Dose: 40 units Insulin Human Lispro (Humalog*) 0 units SUBCUT [facility]; Protocol Last Admin: 04/21/18 13:37 Dose: Not Given Levothyroxine Sodium (Synthroid Tab*) 25 mcg PO 0600 [facility] Last Admin: 04/21/18 06:44 Dose: 25 mcg Omeprazole (Prilosec Cap*) 40 mg PO DAILY@0730 [facility] Last Admin: 04/21/18 08:37 Dose: 40 mg Ondansetron HCl (Zofran Inj*) 4 mg IV Q6H PRN PRN Reason: NAUSEA Potassium Chloride (Klor Con Er Tab*) 20 meq PO BID [facility] Last Admin: 04/21/18 08:38 Dose: 20 meq Terazosin HCl (Hytrin Cap*) 10 mg PO BEDTIME [facility] Last Admin: 04/20/18 21:52 Dose: 10 mg Vital Signs - 8 hr 04/21/18 15:59 Temperature 99.4 F Pulse Rate 65 Respiratory 16 Rate Blood Pressure 151/56 (mmHg) O2 Sat by Pulse 99 Oximetry Oxygen Devices in Use Now: None Result Diagrams: 04/21/18 06:05 04/21/18 06:05 Additional Lab and Data: Lab Results 04/20/18 Range/Units 17:37 WBC 5.2 (3.5-10.8) 10^3/ul RBC 2.95 L (4.00-5.40) 10^6/ul Hgb 8.0 L (12.0-16.0) g/dl Hct 26 L (35-47) % MCV 87 (80-97) fL MCH 27 (27-31) pg MCHC 31 (31-36) g/dl RDW 18 H (10.5-15) % Plt Count 117 L (150-450) 10^3/ul MPV 9.5 (7.4-10.4) um3 Neut % (Auto) 71.9 (38-83) % Lymph % (Auto) 15.6 L (25-47) % [place] % (Auto) 7.4 H (0-7) % Eos % (Auto) 3.9 (0-6) % Baso % (Auto) 1.2 (0-2) % Absolute Neuts (auto) 3.8 (1.5-7.7) 10^3/ul Absolute Lymphs (auto) 0.8 L (1.0-4.8) 10^3/ul Absolute Monos (auto) 0.4 (0-0.8) 10^3/ul Absolute Eos (auto) 0.2 (0-0.6) 10^3/ul Absolute Basos (auto) 0.1 (0-0.2) 10^3/ul Absolute Nucleated RBC 0 10^3/ul Nucleated RBC % 0.1 Assess/Plan/Problems-Billing Assessment: - Patient Problems (1) Chest pain Current Visit: No Status: Acute Code(s): R07.9 - CHEST PAIN, UNSPECIFIED SNOMED Code(s): 50022685 Comment: -D/W Dr. Okeefe in AM who agrees with above plan of observation -ACS has been ruled out with troponins (-)x3 -Likely due to costochondritis as there seems to be no significant difference from todays echo compared to the one on 04/2017 -Will re-discuss above with Dr. Okeefe (2) Anemia Current Visit: Yes Status: Acute Code(s): D64.9 - ANEMIA, UNSPECIFIED SNOMED Code(s): 454379004 Comment: -Due to AVMs -Stable H&H -Continue watchful waiting (3) DM2 (diabetes mellitus, type 2) Current Visit: No Status: Acute Comment: -Continue current regimen (4) CKD (chronic kidney disease) Current Visit: Yes Status: Acute Code(s): N18.9 - CHRONIC KIDNEY DISEASE, UNSPECIFIED SNOMED Code(s): 663588421 Comment: -Stable -Continue watchful waiting (5) COPD exacerbation Current Visit: No Status: Acute Code(s): J44.1 - CHRONIC OBSTRUCTIVE PULMONARY DISEASE W (ACUTE) EXACERBATION SNOMED Code(s): 394921080 Comment: -Stable -Continue watchful waiting (6) DVT prophylaxis Current Visit: Yes Status: Acute Code(s): BBU4110 - SNOMED Code(s): 132404287 Comment: -Continue SCDs given pt at high risk for GIB Status and Disposition: -For possible D/C in AM -Continue to monitor tele -Will re-discuss with Dr. Johnson.
[2018-04-21] MEDS: Terazosin CAP* 5 MG PO SCH (20:08)
[2018-04-22] MEDS: Levothyroxine TAB* 25 MCG TAB PO SCH (05:13)
[2018-04-22] MEDS: Insulin LISPRO* 1 UNITS UNIT SUBCUT SCH ×2 (08:07→12:14)
[2018-04-22] MEDS: Insulin GLARGINE(*) 1 UNITS UNIT SUBCUT SCH (09:16)
[2018-04-22] MEDS: Carvedilol TAB* 25 MG PO SCH (09:16)
[2018-04-22] MEDS: Omeprazole CAP* 20 MG PO SCH (09:16)
[2018-04-22] MEDS: Bumetanide TAB* 2 MG PO SCH (09:16)
[2018-04-22] MEDS: Atorvastatin* 10 MG TAB PO SCH (09:16)
[2018-04-22] MEDS: Potassium Chlor TAB* 20 MEQ TAB.ER PO SCH (09:17)
[2018-04-22] MEDS: Ferrous Gluconate TAB* 324 MG TAB PO SCH (09:17)
[2018-04-22 13:52] VITALS: BP 136/48
--- NOTE | 2018-04-22 15:25 | DS ---
CC: Dr. Che; Valente Hunter MD; Neena Moyer MD DISCHARGE SUMMARY: DATE OF ADMISSION: 04/20/18 DATE OF DISCHARGE: 04/22/18 DISCHARGE DIAGNOSES: 1. Recurrent reproducible chest pain, likely due to soft tissue cause, noncardiac pain. 2. Iron-deficiency anemia. 3. Diabetes mellitus, history of. DISCHARGE MEDICATIONS: 1. Tylenol 500 mg p.o. q.6 p.r.n. The patient was instructed not to exceed 2000 mg per day given her cirrhosis. 2. Albuterol 1 puff inhalation q.4 hours p.r.n. 3. Bumetanide 2 mg p.o. daily. 4. Carvedilol 25 mg p.o. b.i.d. 5. Ferrous gluconate 325 mg p.o. b.i.d. 6. Insulin glargine 60 units subcu q.a.m. and 40 units subcu q.p.m. 7. Synthroid 25 mcg p.o. daily. 8. Pantoprazole 40 mg p.o. b.i.d. 9. Potassium chloride 20 mEq p.o. b.i.d. 10. Simvastatin 20 mg p.o. daily. 11. Terazosin 10 mg p.o. q.h.s. 12. [place] for heartburn relief 1 tab p.o. q.6 p.r.n. 13. Multivitamins 1 tablet p.o. daily. 14. Nitroglycerin 0.4 mg sublingual q.5 minutes p.r.n. 15. Nystatin topical powder 1 application topically b.i.d. 16. Triamcinolone 0.1% cream 1 application topically daily. 17. Vitamin B12 1000 mcg p.o. daily. HISTORY OF PRESENT ILLNESS/HOSPITAL COURSE: The patient is a 77-year-old - [place] lady with a history of iron-deficiency anemia due to chronic GI bleed thought to be primarily due to AVM, who presented to the ED given her sharp electrical chest pain on the left side of her chest. Of note, this was similar to the complaint that she had from her last admission which was also reproducible in nature. However, the quality is somewhat changed that brought her to the ER for evaluation. On subsequent evaluation and inquiry, she was found to have a reproducible sharp chest pain on this admission and previously it was described as a heavy pain that was also reproducible. She was ruled out for acute coronary syndrome with troponins being negative x3 and her case was reviewed by Dr. Tompkins, whom I spoke to on the phone regarding her case, who recommended repeat echocardiogram be done given that the last one was back in April 2017. The echocardiogram shows an EF of 45% to 50% with moderate concentric left ventricular hypertrophy that was observed and there was also some global hypokinesis of the left ventricle with minor regional variation. Dr. Tompkins agrees that the patient can be discharged to home today and likely the patient had some soft tissue injury of unknown cause that led to a reproducible chest pain that differs in quality from her previous. She had been advised to follow up and/or call her PCP within 3 days post DC. She had been also advised that if her symptoms resume or develop new ones or feel unwell for any reason, to call her PCP first. If her PCP cannot entertain her due to scheduling issues alone, she was asked to call [facility] if her issue is considered nonemergent. She was advised to call my office regarding any questions, concerns or further clarifications regarding her discharge plans and/or prescriptions and to take her medications as prescribed. REVIEW OF SYSTEMS: The patient currently denies any headaches, dizziness, fevers, chills, nausea, vomiting. Reproducible chest pain has improved. Denies any shortness of breath, abdominal pain, diarrhea, constipation, pain and /or increased frequency in urination, myalgias or arthralgias, throat pain or new skin lesions. The rest of the 14-point review of systems are otherwise unremarkable. PHYSICAL EXAMINATION: Shows the most recent vital signs of records with temperature of 98.1 degrees Fahrenheit, 72 beats per minute heart rate, 20 per minute respiratory rate, saturating on 100% room air with blood pressure 142/58 from 128/49. General appearance: The patient is awake, alert and oriented x3, not in acute distress, obese. HEENT: Normocephalic, atraumatic, PERRLA, extraocular muscles intact, negative for icterus, moist oral mucosa. Negative throat erythema. Heart: S1, S2 within normal limits. Regular rate and rhythm. No murmurs, rubs or gallops. Chest: Clear to auscultation bilaterally. Good air entry. No wheezes, rales or rhonchi, positive chest wall tenderness on the left precordium. Abdomen: Soft, nondistended, nontender. Normoactive bowel sounds x4 quadrants. Extremities: No cyanosis, clubbing or edema. Psychiatric: No active psychosis, depression, suicidal or homicidal ideation. Skin is warm to touch. TIME SPENT: The total time spent evaluating the patient, reviewing pertinent data and appropriate documentation is 40 minutes. [id number]/[facility] #: [id number] [facility]
== END 2018-04-22 14:15 | disposition home or self-care (01) ==
LOC: ED 16:50 → MEDTELE 19:33
PROVIDERS: ADMIT Internal Medicine; ATTEND Student in an Organized Health Care Education/Training Program
DX: R07.9 Chest pain, unspecified (principal); D50.9 Iron deficiency anemia, unspecified; E11.9 Type 2 diabetes mellitus without complications; I12.9 Hypertensive chronic kidney disease with stage 1 through stage 4 chronic kidney disease, or unspecified chronic kidney disease; N18.9 Chronic kidney disease, unspecified; E03.9 Hypothyroidism, unspecified; J44.9 Chronic obstructive pulmonary disease, unspecified; E78.5 Hyperlipidemia, unspecified; M48.00 Spinal stenosis, site unspecified; K74.60 Unspecified cirrhosis of liver; M19.90 Unspecified osteoarthritis, unspecified site; G62.9 Polyneuropathy, unspecified; K44.9 Diaphragmatic hernia without obstruction or gangrene
CPT/HCPCS: 36415; 71046; 80048; 80053; 80061; 83036; 83605; 84484; 85014; 85018; 85025; 86850; 86900; 86901; 93005; 93306; 96372; 96374; 99283; A9270-GY; G0378

== ENCOUNTER 2018-05-28 17:36 | Inpatient (IN) | payer MEDICARE, OTHER ==
--- NOTE | 2018-05-28 18:22 | ED ---
Shortness of Breath - HPI Summary HPI Summary: A 77 y/o female brought in by [facility] ambulance presents to [facility] with a chief complaint of SOB since the week of 05/14/18. She rates her pain as 4/10. She presents to the ED because on 05/28/18 before her dinner her she had severe coughing. She c/o wheezing and CP. She wears O2 but does not use a nebulizer. She has a Hx of COPD, DM, CHF and neuropathy. Deep breaths and coughs worsens her pain. - History of Current Complaint Chief Complaint: EDShortnessOfBreath Time Seen by Provider: 05/28/18 18:02 Hx Obtained From: Patient, EMS Onset/Duration: Gradual Onset, Lasting Weeks, Still Present Current Severity: Moderate Aggrevating Factors: Deep Breaths, Other - cough Associated Signs & Symptoms: Wheezing, Chest Pain w/Cough - Allergy/Home Medications Allergies/Adverse Reactions: Allergies Allergy/AdvReac Type Severity Reaction Status Date / Time captopril Allergy Severe Hives Verified 05/08/18 11:44 Home Medications: Home Medications Omeprazole CAP* [Prilosec CAP* 20 MG] 20 mg PO DAILY 05/28/18 [History Confirmed 05/28/18] PMH/Surg Hx/FS Hx/Imm Hx Endocrine/Hematology History: Reports: Hx Blood Transfusions, Hx Diabetes, Hx Anemia - chronic iron infusions Cardiovascular History: Reports: Hx Angina, Hx Congestive Heart Failure, Hx Coronary Artery Disease, Hx Hypercholesterolemia, Hx Hypertension, Other Cardiovascular Problems/Disorders - cardiomyopathy Denies: Hx Myocardial Infarction, Hx Pacemaker/ICD Respiratory History: Reports: Hx Asthma, Hx Chronic Obstructive Pulmonary Disease (COPD), Hx Sleep Apnea, Other Respiratory Problems/Disorders - emphysema GI History: Reports: Hx Cirrhosis, Hx Gastroesophageal Reflux Disease, Hx Gastrointestinal Bleed, Hx Hiatal Hernia - s/p repair, Other GI Disorders - HELICOBACTER INFECTION History: Reports: Hx Renal Disease, Other Problems/Disorders - CKD stage 3 Musculoskeletal History: Reports: Hx Arthritis, Hx Back Problems, Other Musculoskeletal History - spinal stenosis Sensory History: Reports: Hx Cataracts - surgery with implants bilat eyes 96, Hx Contacts or Glasses Denies: Hx Deafness, Hx Hearing Aid Opthamlomology History: Reports: Hx Cataracts - surgery with implants bilat eyes 96, Hx Contacts or Glasses Neurological History: Reports: Other Neuro Impairments/Disorders - vertigo Psychiatric History: Reports: Other Psychiatric Issues/Disorders - PT REPORTS "STRESS" AND SAYS HER MD GAVE HER A MED FOR IT, UNSURE WHAT Denies: Hx Panic Disorder - Surgical History Surgery Procedure, Year, and Place: HERNIA. HYSTERECTOMY. CATERACTS. CARPAL TUNNEL. CYSTS REMOVED FROM BILATERAL ARMPITS. RTC RT. LT FOOT SURGERY - Immunization History Date of Tetanus Vaccine: > 10 yers Date of Influenza Vaccine: [id number] Infectious Disease History: No Infectious Disease History: Denies: Hx of Known/Suspected MRSA, Traveled Outside the [place] in Last 30 Days - Family History Known Family History: Positive: Other - Yes - CHF (Mother) - Social History Alcohol Use: None Substance Use Type: Reports: None Hx Tobacco Use: Yes Smoking Status (MU): Former Smoker Have You Smoked in the Last Year: No Review of Systems Positive: Chest Pain Positive: Shortness Of Breath, Cough, Other - Positiv: wheezing All Other Systems Reviewed And Are Negative: Yes Physical Exam - Summary Physical Exam Summary: Appearance: The patient is well-nourished in no acute distress and in no acute pain. Skin: The skin is warm and dry and skin color reflects adequate perfusion. HEENT: The head is normocephalic and atraumatic. The pupils are equal and reactive. The conjunctivae are clear and without drainage. Nares are patent and without drainage. Mouth reveals moist mucous membranes and the throat is without erythema and exudate. The external ears are intact. The ear canals are patent and without drainage. The tympanic membranes are intact. Neck: The neck is supple with full range of motion and non-tender. There are no carotid bruits. There is no neck vein distension. Respiratory: Chest is non-tender. Mild expiratory wheezing. Cardiovascular: Heart is regular rate and rhythm. Soft systolic ejection murmur. There is no peripheral edema and pulses are symmetrical and equal. Abdomen: The abdomen is soft and non-tender. There are normal bowel sounds heard in all four quadrants and there is no organomegaly palpated. Musculoskeletal: There is no back tenderness noted. Extremities are non-tender with full range of motion. There is good capillary refill. There is no peripheral edema or calf tenderness elicited. Neurological: Patient is alert and oriented to person, place and time. The patient has symmetrical motor strength in all four extremities. Cranial nerves are grossly intact. Deep tendon reflexes are symmetrical and equal in all four extremities. Psychiatric: The patient has an appropriate affect and does not exhibit any anxiety or depression. Triage Information Reviewed: Yes Vital Signs On Initial Exam: Initial Vitals Temp Pulse Resp BP Pulse Ox 98.5 F 82 19 172/63 100 05/28/18 17:39 05/28/18 17:39 05/28/18 17:39 05/28/18 17:39 05/28/18 17:39 Vital Signs Reviewed: Yes Diagnostics - Vital Signs Vital Signs Temp Pulse Resp BP Pulse Ox 05/28/18 18:00 81 13 100 05/28/18 17:45 79 19 172/63 100 05/28/18 17:39 98.5 F 82 19 172/63 100 - Laboratory Result Diagrams: 05/28/18 18:42 05/28/18 18:42 Lab Statement: Any lab studies that have been ordered have been reviewed, and results considered in the medical decision making process. - Radiology CXR Radiology Interpretation Completed By: ED Physician Summary of Radiographic Findings: atelectasis, infiltrate left lower lobe. Pending official radiology report. - EKG 17:51 Cardiac Rate: NL - 77 bpm EKG Rhythm: Sinus Rhythm Summary of EKG Findings: Normal sinus rhythm, normal ST, no ectopy, no STEMI Course/Dx - Course Course Of Treatment: Ms. Hansen presented to the emergency department complaining of shortness of breath which has been coming on for days if not longer. She was nontoxic in appearance on arrival with stable vital signs and found to have a severe anemia. She will require blood transfusion and the hospitals were contacted for admission. - Diagnoses Provider Diagnoses: Severe anemia - Physician Notifications Discussed Care of Patient With: Jennifer Carty Time Discussed With Above Provider: 21:20 Instructed by Provider To: Admit As Inpatient Discharge - Sign-Out/Discharge Documenting (check all that apply): Patient Departure - admit - Discharge Plan Condition: Fair Disposition: ADMITTED TO [facility] - Billing Disposition and Condition Condition: FAIR Disposition: Admitted to [facility] - Attestation Statements Document Initiated by Scribe: Yes Documenting Scribe: Jose J Gilbert Provider For Whom Scribe is Documenting (Include Credential): Mynor Ambrosio MD Scribe Attestation: Jose J Benitez, scribed for Mynor Ambrosio MD on 05/28/18 at 2153. Scribe Documentation Reviewed: Yes Provider Attestation: The documentation as recorded by the scribe, Jose J Gilbert accurately reflects the service I personally performed and the decisions made by me, Mynor Ambrosio MD Status of Scribe Document: Viewed
[2018-05-28 19:02] LABS: Hematocrit 18 % (35-47); Hemoglobin 5.6 g/dl (12.0-16.0); Mean Corpuscular HGB Conc 31 g/dl (31-36); Mean Corpuscular Hemoglobin 24 pg (27-31); Mean Corpuscular Volume 76 fL (80-97); Mean Platelet Volume 9.4 fL (7.4-10.4); Platelet Count 163 10^3/ul (150-450); Red Blood Count 2.35 10^6/ul (4.00-5.40); Red Cell Distribution Width 18 % (10.5-15); White Blood Count 5.7 10^3/ul (3.5-10.8)
[2018-05-28 19:06] LABS: INR 1.13 (0.77-1.02)
[2018-05-28 19:12] LABS: EGFR Non-African American 56.5 (>60)
[2018-05-28 19:46] LABS: Monocytes % 5 %
[2018-05-28 19:47] LABS: Schistocytes 2+
[2018-05-28 19:58] LABS: ABS Neutrophils 4.2 10^3/ul (1.5-7.7)
[2018-05-28] MEDS ORDERED: Furosemide IV* 10 MG/ML 10 ML VIAL (100 MG) IV ONE (20:23)
[2018-05-28] MEDS ORDERED: Triamcinolone 0.025% OINT * 15 GM TUBE TOPICAL PRN (20:25)
[2018-05-28] MEDS ORDERED: Nystatin TOP POWDER* 15 GM BTL TOPICAL PRN (20:25)
[2018-05-28] MEDS ORDERED: Acetaminophen TAB* 325 MG PO PRN (20:27)
[2018-05-28] MEDS ORDERED: Ondansetron ODT TAB* 4 MG SL PRN (20:28)
[2018-05-28] MEDS ORDERED: Dextrose 50% Syringe 50 ML* 25 GM/50 ML SYRINGE IV PUSH PRN (20:38)
[2018-05-28] MEDS ORDERED: Ferrous Gluconate TAB* 324 MG TAB PO SCH ×2 (21:00→22:41)
[2018-05-28] MEDS: Terazosin CAP* 5 MG PO SCH (23:12)
[2018-05-28] MEDS: Ferrous Gluconate TAB* 324 MG TAB PO SCH (23:12)
[2018-05-28] MEDS: Potassium Chlor TAB* 20 MEQ TAB.ER PO SCH (23:12)
[2018-05-28] MEDS: Carvedilol TAB* 25 MG PO SCH (23:24)
--- NOTE | 2018-05-29 00:12 | HP ---
CC: Dr. Neena Moyer.* HISTORY AND PHYSICAL: DATE OF ADMISSION: 05/28/18 PRIMARY CARE PHYSICIAN: Dr. Neena Moyer. ATTENDING PHYSICIAN: Dr. Jennifer Carty * (dictation provided by Sharmin Cornell NP ) CHIEF COMPLAINT: Chest pain and shortness of breath. HISTORY OF PRESENT ILLNESS: Ms. 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 Ms. Hansen states that she has been feeling unwell for a few days to week or so. She states that she has had chest pain and shortness of breath. This is very consistent with her previous episodes in which she had anemia. She believes that perhaps her lower extremities are a little more swollen than usual, though not significantly so. She has had cough for about a week and a half. It has been nonproductive. She states that she has not had any bright red blood per rectum and notes there has been no change with her stool, which can be dark at times. She has had no vomiting of blood or vomiting of any type. She denies abdominal pain. In the emergency room, Ms. Hansen was found to have worsening of her chronic anemia. Her hemoglobin is 5.6. On last check on 04/21/18, it was 7.9 and around 7 to 8 is where she seems to run typically. Her glucose is elevated at 344. Her troponin is 0.01. Her BNP is 402, which is a high for her. She has a chest x-ray, which shows at least a concern for right-sided pleural effusion and perhaps left as well. She has approximately 1+ pitting edema to her lower extremities. Ms. Hansen has a long-term history of AVM with anemia. She last had an upper endoscopy with Dr. Singh on 04/14/18. This showed no clear source of bleeding. She has in the past had upper and lower endoscopy and capsular endoscopy studies. The last capsule endoscopy study was in October 2016 and it demonstrated small benign-appearing jejunal polyps as well as half dozen small AVMs in the mid jejunum and distal ileum. These have never been noted to be bleeding, but are believed to be the source of her ongoing chronic anemia. PAST MEDICAL HISTORY: 1. Chronic anemia secondary to AVMs. 2. Insulin-dependent type 2 diabetes. 3. CHF. Last echocardiogram 04/21/18 with EF 40% to 45%. 4. CKD, stage 2. 5. Hypertension. 6. Hypothyroidism. 7. COPD. 8. Hyperlipidemia. 9. Spinal stenosis. 10. Cardiomyopathy. 11. Cirrhosis, possibly secondary to HUERTA. 12. Arthritis. 13. Neuropathy. 14. Hiatal hernia. PAST SURGICAL HISTORY: 1. Hernia repair. 2. Cataract extraction. 3. Partial hysterectomy. 4. Rotator cuff. 5. ORIF of the foot. 6. Cardiac catheterization. 7. Carpal tunnel. MEDICATIONS: Medications tonight have been reviewed and they are as follows: 1. Omeprazole 20 mg p.o. daily. 2. Bumetanide 2 mg p.o. b.i.d. 3. Ferrous gluconate 325 mg p.o. b.i.d. 4. Carvedilol 25 mg p.o. b.i.d. 5. Losartan 50 mg p.o. daily. 6. Levothyroxine 25 mcg p.o. daily. 7. Lantus insulin 70 units in the a.m. and 40 units at night. 8. Nystatin topical power 1 application topically b.i.d. p.r.n. 9. Nitroglycerin 0.3 mg sublingual q. 5 minutes p.r.n. 10. Terazosin 10 mg p.o. daily. 11. Spironolactone 25 mg p.o. daily. 12. Simvastatin 20 p.o. daily. 13. Potassium chloride 20 mEq p.o. b.i.d. 14. Vitamin B12 of 1000 mcg p.o. daily. 15. Triamcinolone cream 1 application daily p.r.n. 16. Metolazone 2.5 mg p.o. 2 times a week. 17. Metformin 1000 mg p.o. b.i.d. ALLERGIES: CAPTOPRIL. FAMILY HISTORY: Mother had CHF, diabetes, and dementia. SOCIAL HISTORY: The patient is a former smoker. She does not drink alcohol. Her surrogate decision maker is her , Alejandro. REVIEW OF SYSTEMS: A 14-point review of systems was completed with Ms. Hansen, and all those not mentioned above were negative. PHYSICAL EXAMINATION GENERAL: Ms. Hansen is sitting in the bed. She is in no acute distress. Her is at the bedside. VITAL SIGNS: Temperature 98.5, pulse rate 77, respiratory rate 16, O2 saturation 98% on room air, and blood pressure 155/49. HEART: S1, S2. No murmur, rub, or gallop, and regular. LUNGS: Have coarse crackles bilaterally, left greater than right. There is good aeration. ABDOMEN: Soft and nontender with bowel sounds positive x4. EXTREMITIES: No cyanosis. Positive for 1+ edema. NEUROLOGIC: She is alert. She is oriented x3. She moves all extremities equally. There is no facial asymmetry or focal weakness. Extraocular muscles intact. SKIN: Intact. DIAGNOSTIC STUDIES AND LABORATORY DATA: Sodium 139, potassium 3.7, chloride 105, serum bicarbonate 31. BUN 14 and creatinine 0.96. Glucose 334. Lactic acid 1.0. Troponin was 0.01. BNP is 402. CRP 3.52. WBC 5.7, hemoglobin 5.6, hematocrit 18, platelet count 163. INR 1.13. Again, the chest x-ray shows concern for likely bilateral pleural effusions. No clear evidence of an infiltrate. The EKG shows a sinus rhythm with a heart rate of 77 and no evidence of ischemia , and no change from previous. ASSESSMENT AND PLAN: Ms. Hansen is a 77-year-old female with a past medical history of chronic anemia secondary to multiple arteriovenous malformations, type 2 diabetes, congestive heart failure with an ejection fraction 40-45%, who presented to the hospital today with concern for chest pain and shortness of breath, found to have worsening anemia and concern for acute on chronic systolic congestive heart failure exacerbation. Our plans are for observation in the hospital for the followin. Chest pain and shortness of breath. The patient's chest pain and shortness of breath could be secondary to CHF, likely exacerbated by her anemia. Plan to repeat troponins, the first one is negative. She will be monitored on the telemetry unit. Plan to treat her anemia and congestive heart failure as per below. 2. Anemia: The patient's hemoglobin of 5.6 is not a dramatic decrease from her general baseline of about 7 to 8. I suspect that this is in part dilutional as I suspect that she has significant component of CHF. However, plan to treat with 1 unit of blood tonight and also with 60 mg of Lasix. We can add additional rounds of Lasix as needed. We will recheck her labs in the a.m. Given her workups showing AVMs now for several years with no clear bleeding source, I do not think GI consultation is warranted. She can continue to follow up outpatient. I do not think she is actively bleeding. Check CBC in a.m. 3. Acute on chronic systolic congestive heart failure exacerbation. The patient has pleural effusions on the chest x-ray. She has crackles on lung auscultation, she has some lower extremity edema and the highest BNP we have seen for her. I think all in all these suggest that she likely has a CHF exacerbation. Plan to treat with 60 mg of Lasix tonight and additional 40 mg in the a.m. The patient has requested a Crespo catheter, which I think is appropriate to monitor for input and output. She will have daily weights. We will recheck her basic metabolic panel in the a.m. The patient had a recent echocardiogram in March. I do not think an additional echocardiogram is warranted. 4. Type 2 diabetes. The patient states she has uncontrolled diabetes at times at home and it is uncontrolled here today. Plan to continue her home dose of Lantus for now. This can be adjusted as needed based on the clinical course. I do see the last hemoglobin A1c in March was actually good at 5.9. She will have blood glucoses q.a.c. with a lispro sliding scale. 5. DVT prophylaxis will be with SCDs only in this patient with anemia. 6. Hyperlipidemia. Continue simvastatin. 7. Hypertension. We will continue carvedilol, her diuretic and spironolactone , but we will hold losartan for now. Her creatinine is normal at this point. 8. Hypothyroidism. Continue levothyroxine. 9. Code status is full code. This was reviewed with the patient at bedside. TIME SPENT: Approximately 75 minutes were spent on the admission of this patient, more than half time was spent with the patient at the bedside reviewing the events leading up to this hospitalization, performing the physical examination, and reviewing my plan of care. SHARMIN CORNELL NP [id number]/[facility] #: [id number] WENDY
[2018-05-29] MEDS: Levothyroxine TAB* 25 MCG TAB PO SCH (05:28)
[2018-05-29 06:21] LABS: ABS Basophils 0 10^3/ul (0-0.2); ABS Eosinophils 0.3 10^3/ul (0-0.6); ABS Lymphocytes 0.9 10^3/ul (1.0-4.8); ABS Monocytes 0.5 10^3/ul (0-0.8); ABS Neutrophils 3.9 10^3/ul (1.5-7.7); ABS Nucleated RBC 0 10^3/ul; Eosinophil % 4.7 %; Hematocrit 19 % (35-47); Hemoglobin 6.2 g/dl (12.0-16.0); Lymphocyte % 16.5 %; Mean Corpuscular HGB Conc 33 g/dl (31-36); Mean Corpuscular Hemoglobin 26 pg (27-31); Mean Corpuscular Volume 77 fL (80-97); Mean Platelet Volume 9.6 fL (7.4-10.4); Nucleated Red Blood Cells % 0.5; Platelet Count 145 10^3/ul (150-450); Red Blood Count 2.42 10^6/ul (4.00-5.40); Red Cell Distribution Width 18 % (10.5-15); White Blood Count 5.6 10^3/ul (3.5-10.8)
[2018-05-29 06:35] LABS: EGFR Non-African American 61.7 (>60)
[2018-05-29] MEDS: Furosemide IV* 10 MG/ML VIAL (40 MG) IV SCH (08:50)
[2018-05-29] MEDS: Ferrous Gluconate TAB* 324 MG TAB PO SCH ×2 (08:50→20:45)
[2018-05-29] MEDS: Carvedilol TAB* 25 MG PO SCH ×2 (08:50→20:42)
[2018-05-29] MEDS: Potassium Chlor TAB* 20 MEQ TAB.ER PO SCH ×2 (08:50→20:45)
[2018-05-29] MEDS: Omeprazole CAP* 20 MG PO SCH (08:50)
[2018-05-29] MEDS: Insulin LISPRO* 1 UNITS UNIT SUBCUT SCH ×3 (08:50→17:33)
[2018-05-29] MEDS: Spironolactone TAB* 25 MG PO SCH (08:50)
[2018-05-29] MEDS: Atorvastatin* 10 MG TAB PO SCH (08:50)
[2018-05-29] MEDS ORDERED: Insulin GLARGINE(*) 1 UNITS UNIT SUBCUT SCH (09:00)
[2018-05-29] MEDS ORDERED: Furosemide IV* 10 MG/ML VIAL (40 MG) IV ONE ×2 (09:05→14:00)
[2018-05-29 17:17] LABS: Hematocrit 26 % (35-47); Hemoglobin 8.1 g/dl (12.0-16.0)
--- NOTE | 2018-05-29 18:00 | PN ---
Subjective Date of Service: 05/29/18 Interval History: Pt had been having melanotic stools for several days now. Denies abd pain. SOB now resolved. On chronic 02 at 2L from home Objective Active Medications: Acetaminophen (Tylenol Tab*) 650 mg PO Q6H PRN PRN Reason: PAIN Atorvastatin Calcium (Lipitor*) 10 mg PO DAILY [facility] Last Admin: 05/29/18 08:50 Dose: 10 mg Carvedilol (Coreg Tab*) 25 mg PO BID [facility] Last Admin: 05/29/18 08:50 Dose: 25 mg Dextrose (D50w Syringe 50 Ml*) 12.5 gm IV PUSH .FOR FS < 60 - SS PRN PRN Reason: FS < 60 Ferrous Gluconate (Fergon Tab*) 324 mg PO 0900,2100 [facility] Last Admin: 05/29/18 08:50 Dose: 324 mg Furosemide (Lasix Iv*) 40 mg IV 0800 [facility] Last Admin: 05/29/18 08:50 Dose: 40 mg Insulin Glargine (Lantus(*)) 40 units SUBCUT 2000 [facility] Insulin Glargine (Lantus(*)) 70 units SUBCUT QAM [facility] Last Admin: 05/29/18 08:50 Dose: 70 units Insulin Human Lispro (Humalog*) 0 units SUBCUT AC [facility]; Protocol Last Admin: 05/29/18 17:33 Dose: 12 units Levothyroxine Sodium (Synthroid Tab*) 25 mcg PO 0600 [facility] Last Admin: 05/29/18 05:28 Dose: 25 mcg Nystatin (Nystatin Top Powder*) 1 applic TOPICAL BID PRN PRN Reason: ITCHING Last Admin: 05/28/18 23:14 Dose: 1 applic Omeprazole (Prilosec Cap*) 20 mg PO DAILY [facility] Last Admin: 05/29/18 08:50 Dose: 20 mg Ondansetron HCl (Zofran Odt Tab*) 4 mg SL Q6H PRN PRN Reason: NAUSEA/VOMITING Potassium Chloride (Klor Con Er Tab*) 20 meq PO BID [facility] Last Admin: 05/29/18 08:50 Dose: 20 meq Spironolactone (Aldactone Tab*) 25 mg PO DAILY [facility] Last Admin: 05/29/18 08:50 Dose: 25 mg Terazosin HCl (Hytrin Cap*) 10 mg PO BEDTIME [facility] Last Admin: 05/28/18 23:12 Dose: 10 mg Triamcinolone Acetonide (Triamcinolone 0.025% Oint *) 1 applic TOPICAL DAILY PRN PRN Reason: RASH Last Admin: 05/28/18 23:14 Dose: 1 applic Vital Signs - 8 hr 05/29/18 05/29/18 05/29/18 10:35 10:55 13:02 Temperature 98.8 F Pulse Rate 66 71 67 Respiratory 16 20 20 Rate Blood Pressure 137/47 137/48 148/55 (mmHg) O2 Sat by Pulse 95 Oximetry 05/29/18 16:56 Temperature 98.5 F Pulse Rate 69 Respiratory 18 Rate Blood Pressure 151/62 (mmHg) O2 Sat by Pulse 100 Oximetry Oxygen Devices in Use Now: Nasal Cannula Appearance: 77 yo F in nAD, aAOx3 Eyes: No Scleral Icterus, PERRLA Ears/Nose/Mouth/Throat: NL Teeth, Lips, Gums, Mucous Membranes Moist Neck: NL Appearance and Movements; NL JVP, Trachea Midline Respiratory: Symmetrical Chest Expansion and Respiratory Effort, - - faint bibasiliar crackles Cardiovascular: NL Sounds; No Murmurs; No JVD, RRR Abdominal: NL Sounds; No Tenderness; No Distention Lymphatic: No Cervical Adenopathy Extremities: No Clubbing, Cyanosis, - - +1 pitting pedal edema b/l Skin: No Rash or Ulcers, No Nodules or Sclerosis Neurological: Alert and Oriented x 3, NL Muscle Strength and Tone Result Diagrams: 05/29/18 17:06 05/29/18 05:53 Microbiology and Other Data: Microbiology 05/29/18 01:48 Transfusion Reaction Gram Stain - Final Blood Bag Assess/Plan/Problems-Billing Assessment: Ms. Hansen is a 77 y.o female with PMHX of CKD, DM, Systolic CHF, htn, hypothyroid that presented to the emergency room with chest pain and shortness of breath. Patient was found to have anemia - Patient Problems (1) Anemia Comment: -Due to AVMs -Hb down today and received 2 U PRBC for repeat EGD with Dr. Marcial tomorrow. -s/p EGD on 04/14/18 nonconclusive for abn that would be the cause of bleed: there were small esophageal varices without evidence of bleeding or high risk stigmata. Further supportive of new diagnosis of cirrhosis. Gastric evaluation was unremarkable. Duodenum demonstrated several polyps (hx of previously documented adenomas) including one area that appeared to be a larger polyp (vs nodular mucosa vs duodenal varix) -- this area was incompletely visualized on the exam due to location. There were several tiny subtle erosions in duodenal bulb, edematous and nodular mucosa in post-bulbar duodenum of unclear significance, and general friability to the mucosa in duodenum. No ulcers or AVMs. Clotest from stomach negative for H pylori. (2) Chronic combined systolic and diastolic CHF (congestive heart failure) Comment: Acute on Chronic, resulting in hypoxia, as above. NICM, EF 40-45% on echo from 04/2017. Cardiac Cath normal in 2017. Diuresing well with 2 doses of IV Lasix post transfusions today (3) CKD (chronic kidney disease) Comment: -Stable improved from prior (4) DM2 (diabetes mellitus, type 2) Comment: -Continue home Lantus , but will tx with 1/2 dose of Lantus in aM due to NPO status (5) COPD (chronic obstructive pulmonary disease) Comment: with chronic hypoxemic resp failure requiring 2 l 02 NC-at baseline (6) DVT prophylaxis Comment: -Will place pt on SCDs -Pharmacologic prophylaxis contraindicated due to GIB Status and Disposition: Inpatient
[2018-05-29] MEDS: Insulin GLARGINE(*) 1 UNITS UNIT SUBCUT SCH (20:44)
[2018-05-29] MEDS: Terazosin CAP* 5 MG PO SCH (20:45)
[2018-05-30] MEDS: Levothyroxine TAB* 25 MCG TAB PO SCH (05:17)
[2018-05-30 06:53] LABS: EGFR Non-African American 54.5 (>60)
[2018-05-30 07:53] LABS: Hematocrit 27 % (35-47); Hemoglobin 8.6 g/dl (12.0-16.0); Mean Corpuscular HGB Conc 32 g/dl (31-36); Mean Corpuscular Hemoglobin 26 pg (27-31); Mean Corpuscular Volume 81 fL (80-97); Red Blood Count 3.33 10^6/ul (4.00-5.40); Red Cell Distribution Width 19 % (10.5-15)
[2018-05-30] MEDS: Omeprazole CAP* 20 MG PO SCH (08:50)
[2018-05-30] MEDS: Ferrous Gluconate TAB* 324 MG TAB PO SCH ×2 (08:50→21:44)
[2018-05-30] MEDS: Potassium Chlor TAB* 20 MEQ TAB.ER PO SCH ×2 (08:50→21:43)
[2018-05-30] MEDS: Furosemide IV* 10 MG/ML VIAL (40 MG) IV SCH (08:51)
[2018-05-30] MEDS: Spironolactone TAB* 25 MG PO SCH (08:51)
[2018-05-30] MEDS: Atorvastatin* 10 MG TAB PO SCH (08:51)
[2018-05-30] MEDS: Carvedilol TAB* 25 MG PO SCH ×2 (08:51→21:44)
[2018-05-30] MEDS ORDERED: Magnesium Sulf 4 GM/100 ML IV* 4,000 MG/100 ML BAG IVPB ONE (08:54)
[2018-05-30] MEDS: Insulin LISPRO* 1 UNITS UNIT SUBCUT SCH ×3 (08:54→18:28)
[2018-05-30 08:55] LABS: ABS Basophils 0 10^3/ul (0-0.2); ABS Eosinophils 0.3 10^3/ul (0-0.6); ABS Monocytes 0.6 10^3/ul (0-0.8); ABS Neutrophils 5.9 10^3/ul (1.5-7.7); ABS Nucleated RBC 0.1 10^3/ul; Eosinophil % 4.3 %; Lymphocyte % 12.9 %; Mean Platelet Volume 11.3 fL (7.4-10.4); Nucleated Red Blood Cells % 1.7; Platelet Count 136 10^3/ul (150-450)
[2018-05-30] MEDS ORDERED: Insulin GLARGINE(*) 1 UNITS UNIT SUBCUT SCH (09:00)
[2018-05-30] MEDS ORDERED: Midazolam* 1 MG/ML 10 ML VIAL (10 MG) ONE (10:12)
[2018-05-30] MEDS ORDERED: fentaNYL* 50 MCG/ML 2 ML VIAL (100 MCG VIAL) ONE (10:12)
--- NOTE | 2018-05-30 11:14 | PN ---
Progress Note - Progress Note Date of Service: 05/30/18 Note: Stopped in today in response to request for palliative consultation on this patient. She was not in her room, but down in endoscopy for procedure. We will visit later in the week. Thanks for the referral.
--- NOTE | 2018-05-30 15:16 | PN ---
Subjective Date of Service: 05/30/18 Interval History: Pt feels "much better " after EGD. (showed portal gastropathy, small varices, no significant bleeding) Objective Active Medications: Acetaminophen (Tylenol Tab*) 650 mg PO Q6H PRN PRN Reason: PAIN Last Admin: 05/30/18 02:03 Dose: 650 mg Atorvastatin Calcium (Lipitor*) 10 mg PO DAILY [facility] Last Admin: 05/30/18 08:51 Dose: 10 mg Carvedilol (Coreg Tab*) 25 mg PO BID [facility] Last Admin: 05/30/18 08:51 Dose: 25 mg Dextrose (D50w Syringe 50 Ml*) 12.5 gm IV PUSH .FOR FS < 60 - SS PRN PRN Reason: FS < 60 Ferrous Gluconate (Fergon Tab*) 324 mg PO 0900,2100 [facility] Last Admin: 05/30/18 08:50 Dose: 324 mg Furosemide (Lasix Iv*) 40 mg IV 0800 [facility] Last Admin: 05/30/18 08:51 Dose: 40 mg Insulin Glargine (Lantus(*)) 40 units SUBCUT 2000 [facility] Last Admin: 05/29/18 20:44 Dose: 40 units Insulin Glargine (Lantus(*)) 35 units SUBCUT QAM [facility] Last Admin: 05/30/18 12:31 Dose: 35 units Insulin Human Lispro (Humalog*) 0 units SUBCUT AC [facility]; Protocol Last Admin: 05/30/18 12:31 Dose: 9 units Levothyroxine Sodium (Synthroid Tab*) 25 mcg PO 0600 [facility] Last Admin: 05/30/18 05:17 Dose: 25 mcg Nystatin (Nystatin Top Powder*) 1 applic TOPICAL BID PRN PRN Reason: ITCHING Last Admin: 05/28/18 23:14 Dose: 1 applic Omeprazole (Prilosec Cap*) 20 mg PO DAILY [facility] Last Admin: 05/30/18 08:50 Dose: 20 mg Ondansetron HCl (Zofran Odt Tab*) 4 mg SL Q6H PRN PRN Reason: NAUSEA/VOMITING Potassium Chloride (Klor Con Er Tab*) 20 meq PO BID [facility] Last Admin: 05/30/18 08:50 Dose: 20 meq Spironolactone (Aldactone Tab*) 25 mg PO DAILY [facility] Last Admin: 05/30/18 08:51 Dose: 25 mg Terazosin HCl (Hytrin Cap*) 10 mg PO BEDTIME [facility] Last Admin: 05/29/18 20:45 Dose: 10 mg Triamcinolone Acetonide (Triamcinolone 0.025% Oint *) 1 applic TOPICAL DAILY PRN PRN Reason: RASH Last Admin: 05/28/18 23:14 Dose: 1 applic Vital Signs - 8 hr 05/30/18 05/30/18 05/30/18 07:30 07:44 11:44 Temperature 97.9 F 98.3 F Pulse Rate 62 59 Respiratory 20 18 18 Rate Blood Pressure 168/63 129/42 (mmHg) O2 Sat by Pulse 100 100 Oximetry 05/30/18 13:53 Temperature 98.4 F Pulse Rate 61 Respiratory 18 Rate Blood Pressure 143/56 (mmHg) O2 Sat by Pulse 100 Oximetry Oxygen Devices in Use Now: Nasal Cannula Appearance: 77 yo f in nAD, AAOx3 Eyes: No Scleral Icterus, PERRLA Ears/Nose/Mouth/Throat: NL Teeth, Lips, Gums, Mucous Membranes Moist Neck: NL Appearance and Movements; NL JVP, Trachea Midline Respiratory: Symmetrical Chest Expansion and Respiratory Effort, Clear to Auscultation Cardiovascular: NL Sounds; No Murmurs; No JVD Abdominal: NL Sounds; No Tenderness; No Distention Lymphatic: No Cervical Adenopathy Extremities: No Clubbing, Cyanosis, - - trace pedal edema b/l-improved Skin: No Nodules or Sclerosis Neurological: Alert and Oriented x 3, NL Muscle Strength and Tone Result Diagrams: 05/30/18 06:16 05/30/18 06:16 Microbiology and Other Data: Microbiology 05/29/18 01:48 Transfusion Reaction Gram Stain - Final Blood Bag Assess/Plan/Problems-Billing Assessment: Ms. Hansen is a 77 y.o female with PMHX of CKD, DM, Systolic CHF, htn, hypothyroid that presented to the emergency room with chest pain and shortness of breath. Patient was found to have anemia - Patient Problems (1) Anemia Comment: -Due to luis Lala. EGD shows portal gastropathy and small esophageal varices-no bleed identified. -Hb stable, received 3 U PRBC total(last on 05/29/18) -s/p EGD on 04/14/18 nonconclusive for abn that would be the cause of bleed: there were small esophageal varices without evidence of bleeding or high risk stigmata. Further supportive of new diagnosis of cirrhosis. Gastric evaluation was unremarkable. Duodenum demonstrated several polyps (hx of previously documented adenomas) including one area that appeared to be a larger polyp (vs nodular mucosa vs duodenal varix) -- this area was incompletely visualized on the exam due to location. There were several tiny subtle erosions in duodenal bulb, edematous and nodular mucosa in post-bulbar duodenum of unclear significance, and general friability to the mucosa in duodenum. No ulcers or AVMs. Clotest from stomach negative for H pylori. (2) Chronic combined systolic and diastolic CHF (congestive heart failure) Comment: Acute on Chronic, resulting in hypoxia, as above. NICM, EF 40-45% on echo from 04/2017. Cardiac Cath normal in 2017. Last dose of Lasix IV today, then switch to PO bumex at home dose. Close to euvolemia (3) CKD (chronic kidney disease) Comment: -Stable improved from prior (4) DM2 (diabetes mellitus, type 2) Comment: -Continue home Lantus (5) COPD (chronic obstructive pulmonary disease) Comment: with chronic hypoxemic resp failure requiring 2 l 02 NC-at baseline (6) DVT prophylaxis Comment: - SCDs -Pharmacologic prophylaxis contraindicated due to GIB Status and Disposition: Inpatient
[2018-05-30] MEDS: Losartan TAB* 25 MG PO SCH (16:19)
[2018-05-30] MEDS ORDERED: Dextrose 50% Syringe 50 ML* 25 GM/50 ML SYRINGE IV PUSH PRN (17:29)
[2018-05-30] MEDS ORDERED: Insulin LISPRO* 1 UNITS UNIT SUBCUT ONE (17:29)
[2018-05-30] MEDS: Insulin GLARGINE(*) 1 UNITS UNIT SUBCUT SCH ×2 (17:53→18:28)
[2018-05-30] MEDS: Bumetanide TAB* 2 MG PO SCH (21:43)
[2018-05-30] MEDS: Terazosin CAP* 5 MG PO SCH (21:46)
[2018-05-31 05:13] LABS: ABS Basophils 0.1 10^3/ul (0-0.2); ABS Eosinophils 0.3 10^3/ul (0-0.6); ABS Lymphocytes 0.8 10^3/ul (1.0-4.8); ABS Monocytes 0.8 10^3/ul (0-0.8); ABS Nucleated RBC 0.1 10^3/ul; Eosinophil % 3.7 %; Hematocrit 28 % (35-47); Hemoglobin 8.9 g/dl (12.0-16.0); Lymphocyte % 10.3 %; Mean Corpuscular HGB Conc 32 g/dl (31-36); Mean Corpuscular Hemoglobin 26 pg (27-31); Mean Corpuscular Volume 80 fL (80-97); Mean Platelet Volume 10.2 fL (7.4-10.4); Nucleated Red Blood Cells % 0.7; Platelet Count 158 10^3/ul (150-450); Red Blood Count 3.45 10^6/ul (4.00-5.40); Red Cell Distribution Width 19 % (10.5-15)
[2018-05-31 05:24] LABS: EGFR Non-African American 51.5 (>60)
[2018-05-31] MEDS: Levothyroxine TAB* 25 MCG TAB PO SCH (05:56)
[2018-05-31] MEDS ORDERED: Insulin GLARGINE(*) 1 UNITS UNIT SUBCUT SCH (09:00)
[2018-05-31] MEDS ORDERED: Magnesium Sulfate 2 GM IV* 2 GM/50 ML BAG IVPB ONE (09:03)
[2018-05-31] MEDS: Insulin LISPRO* 1 UNITS UNIT SUBCUT SCH ×2 (09:52→12:47)
[2018-05-31] MEDS: Carvedilol TAB* 25 MG PO SCH (09:57)
[2018-05-31] MEDS: Bumetanide TAB* 2 MG PO SCH (09:57)
[2018-05-31] MEDS: Losartan TAB* 25 MG PO SCH (09:59)
[2018-05-31] MEDS ORDERED: Magnesium Oxide TAB* 400 MG PO SCH (10:00)
[2018-05-31] MEDS: Omeprazole CAP* 20 MG PO SCH (10:01)
[2018-05-31] MEDS: Atorvastatin* 10 MG TAB PO SCH (10:02)
[2018-05-31] MEDS: Spironolactone TAB* 25 MG PO SCH (10:03)
[2018-05-31] MEDS: Ferrous Gluconate TAB* 324 MG TAB PO SCH (10:04)
[2018-05-31] MEDS: Potassium Chlor TAB* 20 MEQ TAB.ER PO SCH (10:04)
[2018-05-31] MEDS ORDERED: Insulin GLARGINE(*) 1 UNITS UNIT SUBCUT ONE (12:10)
[2018-05-31] MEDS ORDERED: Dextrose 50% Syringe 50 ML* 25 GM/50 ML SYRINGE IV PUSH PRN ×2 (12:44→15:47)
[2018-05-31] MEDS ORDERED: Insulin LISPRO* 1 UNITS UNIT SUBCUT ONE ×2 (12:44→15:47)
[2018-05-31] MEDS ORDERED: metFORMIN* 500 MG TAB PO ONE (15:48)
[2018-05-31 16:45] VITALS: BP 132/43
--- NOTE | 2018-06-01 10:17 | DS ---
CC: Dr. Moyer; Dr. Marcial.* DISCHARGE SUMMARY: DATE OF ADMISSION: 05/29/18 DATE OF DISCHARGE: 05/31/18 PRIMARY CARE PROVIDER: Dr. Moyer DISCHARGE DIAGNOSES: 1. Acute gastrointestinal bleed with source undetermined, status post a total of 3 units of packed red blood cells transfusion throughout the hospital stay. 2. Acute on chronic diastolic congestive heart failure resulting in worsening of patient's chronic hypoxemia. SECONDARY DIAGNOSES: 1. History of diabetes type 2. 2. Chronic anemia secondary to small bowel arteriovenous malformations in the past. 3. History of congestive heart failure, last EF obtained on 04/21/18, EF of 40% . 4. History of chronic kidney disease, stage 2, due to diabetes. 5. Hypertension. 6. Hypothyroidism. 7. Chronic obstructive pulmonary disease, on oxygen at 2 to 3 L chronically. 8. Hyperlipidemia. 9. Spinal stenosis. 10. History of cardiomyopathy. 11. 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 12. Arthritis. 13. Neuropathy. 14. Hiatal hernia. MEDICATIONS AT DISCHARGE: 1. Omeprazole 20 mg b.i.d. 2. Insulin Lantus 70 units in the morning, 40 at night. 3. Bumex 2 mg b.i.d. 4. Coreg 25 mg daily. 5. Ferrous gluconate 325 mg b.i.d. 6. Synthroid 25 mcg daily. 7. Losartan 50 mg daily. 8. Glucophage 1000 mg b.i.d. 9. Metolazone 2.5 mg 2 times a week. 10. Multivitamin 1 tablet daily. 11. Nitroglycerin on p.r.n. basis. 12. Potassium chloride 20 mEq b.i.d. 13. Zocor 20 mg daily. 14. Aldactone 25 mg daily. 15. Terazosin 10 mg at bedtime. 16. Triamcinolone cream 0.1% apply to affected areas on the skin on a p.r.n. basis. 17. Vitamin B12 1000 mcg p.o. daily. LABORATORY DATA AND STUDIES PERFORMED DURING THE HOSPITAL STAY: Included: On 11/11, white blood cell count 8.0, hemoglobin 8.9, hematocrit 28, platelets 158. On 05/31/18, sodium 134, potassium 4.0, chloride 97, carbon dioxide 32, BUN 17, creatinine 1.04. magnesium was 1.7 on day of discharge and was replaced intravenously. The patient underwent an upper endoscopy performed by Dr. Marcial on 05/30/18, which showed small esophageal varices and gastropathy, no evidence of bleeding. HOSPITAL COURSE: Erika Hansen is a 77-year-old female with history of anemia with recurrent bleeding with extensive evaluation in the past including capsule studies and EGD obtained in March 2018, who presented to the hospital complaining of melenic stools. Patient's hemoglobin was 5.6 on admission. She also was in exacerbation of her chronic CHF likely due to anemia. She was admitted to the hospital and transfused a total of 3 units of packed red blood cells. It appears her bleeding has resolved, but she did not have any bowel movements during the hospital stay. On 05/30/18, Dr. Marcial performed an upper endoscopy as abovementioned did not show any acute bleeding. Dr. Marcial is planning to perform a colonoscopy on the patient on 06/06/18 after discharge. Please note that after the day of discharge, patient had food brought in by her family members and her sugars became uncontrolled. She peaked at 507 in the middle of the day of discharge on 05/31/18. She received multiple doses of insulin and her sugar normalized to level of 198 by 5 p.m. I discussed it with the patient. I discussed the importance of diet. The patient is not interested in changing her Lantus insulin doses at this point. We did hold her metformin, which is going to be restarted at discharge, which may contribute to the problem. At discharge, patient was recommended to follow up with Dr. Moyer in approximately 4 to [address] Marcial for scheduled colonoscopy on 06/06/18. PHYSICAL EXAMINATION AT THE TIME OF DISCHARGE: Blood pressure of 132/43, heart rate of 63 and regular, respiratory rate 17, oxygen saturation 100% on room air , temperature 98.7. General: The patient is a very pleasant 77-year-old female , who is in no acute distress. Alert, awake, and oriented x3. HEENT: Head, atraumatic and normocephalic. Eyes: Pupils are equal, reactive to light and accommodation. Oropharynx clear. Mucosa moist. Neck: Supple. No JVD, no bruits bilaterally. Cardiovascular: Regular rate and rhythm with no murmur. Respiratory: Faint crackles at bilateral bases, otherwise clear. Abdomen: Soft, nontender. Bowel sounds are present in all 4 quadrants. Extremities: There is trace bilateral pedal edema. Pulses +2 bilaterally. No clubbing or cyanosis. Neurological Evaluation: Speech is clear. Cranial nerves II through XII grossly intact. Motor strength is 5/5 bilaterally. Please note that the patient is on 3 L of oxygen at baseline and she is going to be discharged to continue oxygen at home. Please note that this is a short summary of the patient's hospital stay. Please refer to further medical records for details. TIME SPENT: Approximately 40 minutes was spent on the patient's discharge. [id number]/[facility] #: [id number] MTDD
--- NOTE | 2018-06-02 03:32 | PRO ---
DATE: 05/30/18 - ROOM #444 REFERRING PHYSICIAN: Dr. Neena Moyer.* PROCEDURE: Upper gastrointestinal endoscopy with pediatric colonoscope into jejunum (enteroscopy - push technique). INDICATION: This 77-year-old woman comes in once again anemic, hemoglobin in the 5 and heme-positive. She has not had any overt bleeding, denying any black stool or visible blood in the stool. She discontinued aspirin 81 mg about 10 days ago. She has had many prior endoscopic procedures including couple of weeks ago by Dr. Singh, who saw small collapsible esophageal varices. Her standard upper endoscopy did not see any active bleeding. A longer view into the jejunum was requested. ENDOSCOPIST: Dr. Marcial. MEDICATIONS: Midazolam 4, Fentanyl 37.5. FINDINGS: She is a morbidly-obese older woman, in no cardiorespiratory distress. She was positioned left side down and small doses of midazolam and fentanyl given to induce moderate sedation. EGD: Larynx - not seen. Esophagus - entered easily with the pediatric colonoscope and the mucosa is normal in the upper and mid esophagus. There is a bluish-bravo complexion to the distal esophagus with small varices that do collapse easily. There are no bulbous varices and no high-risk lesions. EG junction is at 38.5 to 39. There are no peptic changes. There is no Marquez's change. Stomach - diffuse erythema and a mild reticulated and granular punctate erythema consistent with portal hypertensive gastropathy. No erosions were seen and no active bleeding. There were no polyps. Duodenum - the pylorus, bulb, and second through fourth portions just showed erythema and sense of congestion. No true AVMs were seen. Some small low- profile polyps were seen without any bleeding or high-risk features. They had uniform surface. The pediatric colonoscope was repositioned, withdrawn, and advanced with a stiffener and also with nursing left upper quadrant traction. This eventually facilitated entering along well past the estimated ligament of Treitz, probably 30 cm. No blood and no AVMs were seen. Coming back, there were no potential bleeding sites in the duodenum. Final withdrawal views in the stomach showed nothing in the fundus on retroflexion and again the appearance consistent with portal hypertensive gastropathy through the body and fundus. IMPRESSION: 1. Duodenal polyps - low risk and not bleeding. 2. History of low-risk small atriovenous malformations - none seen today. 3. Portal hypertensive gastropathy and small distal esophageal varices. 4. Anemia - requries off of aspirin. Will continue to be observed. Colonoscopy in a week will be done, hopping to see culprit lesions in the right colon or terminal ileum. Her ability to withstand total enteroscopy may need to be determined and/or performed TIPS. [id number]/[facility] #: [id number] WENDY
== END 2018-05-31 18:37 | disposition home health service (06) | DRG 811 ==
LOC: ED 17:36 → MEDTELE 20:23 → OBSVTOIN 05-29 15:07
PROVIDERS: ADMIT Nurse Practitioner Acute Care; ATTEND Internal Medicine
PROC: 30233N1 Transfusion of Nonautologous Red Blood Cells into Peripheral Vein, Percutaneous Approach (ICD-10-PCS; principal; 2018-05-29)
PROC: 0DJ08ZZ Inspection of Upper Intestinal Tract, Via Natural or Artificial Opening Endoscopic (ICD-10-PCS; 2018-05-30)
DX: D64.9 Anemia, unspecified (principal); I50.43 Acute on chronic combined systolic (congestive) and diastolic (congestive) heart failure; I13.0 Hypertensive heart and chronic kidney disease with heart failure and stage 1 through stage 4 chronic kidney disease, or unspecified chronic kidney disease; Q27.30 Arteriovenous malformation, site unspecified; I42.9 Cardiomyopathy, unspecified; K76.6 Portal hypertension; I85.00 Esophageal varices without bleeding; J96.11 Chronic respiratory failure with hypoxia; K92.1 Melena; J44.9 Chronic obstructive pulmonary disease, unspecified; K75.81 Nonalcoholic steatohepatitis (NASH); N18.2 Chronic kidney disease, stage 2 (mild); E03.9 Hypothyroidism, unspecified; E78.5 Hyperlipidemia, unspecified; M48.00 Spinal stenosis, site unspecified; K74.60 Unspecified cirrhosis of liver; M19.90 Unspecified osteoarthritis, unspecified site; E11.40 Type 2 diabetes mellitus with diabetic neuropathy, unspecified; K44.9 Diaphragmatic hernia without obstruction or gangrene; I25.10 Atherosclerotic heart disease of native coronary artery without angina pectoris; K21.9 Gastro-esophageal reflux disease without esophagitis; Z96.1 Presence of intraocular lens; E66.01 Morbid (severe) obesity due to excess calories; K31.89 Other diseases of stomach and duodenum; K63.5 Polyp of colon; Z99.81 Dependence on supplemental oxygen; Z98.49 Cataract extraction status, unspecified eye; Z90.710 Acquired absence of both cervix and uterus; Z83.3 Family history of diabetes mellitus; Z82.49 Family history of ischemic heart disease and other diseases of the circulatory system; Z87.891 Personal history of nicotine dependence; Z88.8 Allergy status to other drugs, medicaments and biological substances; Z98.42 Cataract extraction status, left eye; Z98.41 Cataract extraction status, right eye; Z79.4 Long term (current) use of insulin; Z79.52 Long term (current) use of systemic steroids; Z68.39 Body mass index [BMI] 39.0-39.9, adult
CPT/HCPCS: 36415; 71046; 80048; 80053; 82947; 83605; 83735; 83880; 84484; 85014; 85018; 85025; 85060; 85610; 86078; 86140; 86850; 86900; 86901; 86922; 93005; 99156; 99157; 99284; A9270-GY; G0378; J1940; J2250; J3010; J3475; P9040

== ENCOUNTER 2018-06-30 07:49 | Inpatient (IN) | payer MEDICARE, OTHER ==
[2018-06-30] MEDS ORDERED: Ondansetron ODT TAB* 4 MG PO ONE (08:05)
[2018-06-30] MEDS ORDERED: Lidocaine 2% JELLY* 10 ML JELLY TOPICAL ONE (08:06)
--- NOTE | 2018-06-30 08:09 | ED ---
GI/ HPI - HPI Summary HPI Summary: Patient is a 77 y/o F presenting to ED via ambulance with complaints of diffuse abdominal pain, nausea, and two episodes hematemesis onsetting today, first episode was "a little before 0500" and the second at 0530. She notes color of vomit was dark brown. Patient denies prior episodes of such hematemesis. In room , she rates abdominal pain 4/10. Nausea is noted to still be "slightly" present as well. Patient was already awake when Sx onset. Diarrhea, lightheadedness, near syncope, chest pain, fever, fatigue are denied. She reports no change in bowel movements, notes that she typically has 2-3 bowel movements daily, last bowel movement was yesterday. Patient states that the past few days her stool has been brown-colored and notes that it is typically darker. PMHx of anemia, patient reports that she gets iron infusions. She states that she had swordfish for dinner last night, claims she has not eaten today. PMHx of cirrhosis, diabetes, CKD. Patient is on tramadol for sciatica, insulin twice daily for diabetes. She notes she has not taken her medications today. On triage, nothing is noted to aggravate/alleviate Sx. Home medications, allergies, and nurses note reviewed. - History of Current Complaint Stated Complaint: VOMITING BLOOD Hx Obtained From: Patient Onset/Duration: Started Hours Ago, Still Present - abdominal pain, nausea Timing: Constant, Intermittent - vomiting episodes, Lasting Hours Severity: Moderate - 4/10 Current Severity: Moderate - 4/10 Location of Pain: Diffuse Associated Signs and Symptoms: Positive: Hematemesis, Nausea, Vomiting, Abdominal Pain. Negative: Dizziness, Weakness, Syncope, Constipation, Diarrhea , Fever, Lightheadedness, Chest Pain Aggravating Factor(s): Nothing Alleviating Factor(s): Nothing - Additional Pertinent History Primary Care Physician: JASON - Allergy/Home Medications Allergies/Adverse Reactions: Allergies Allergy/AdvReac Type Severity Reaction Status Date / Time captopril Allergy Severe Hives Verified 06/16/18 15:20 PMH/Surg Hx/FS Hx/Imm Hx Endocrine/Hematology History: Reports: Hx Blood Transfusions, Hx Diabetes, Hx Anemia - chronic iron infusions Cardiovascular History: Reports: Hx Angina, Hx Congestive Heart Failure, Hx Coronary Artery Disease, Hx Hypercholesterolemia, Hx Hypertension, Other Cardiovascular Problems/Disorders - cardiomyopathy Denies: Hx Myocardial Infarction, Hx Pacemaker/ICD Respiratory History: Reports: Hx Asthma, Hx Chronic Obstructive Pulmonary Disease (COPD), Hx Sleep Apnea, Other Respiratory Problems/Disorders - emphysema GI History: Reports: Hx Cirrhosis, Hx Gastroesophageal Reflux Disease, Hx Gastrointestinal Bleed, Hx Hiatal Hernia - s/p repair, Other GI Disorders - HELICOBACTER INFECTION History: Reports: Hx Renal Disease, Other Problems/Disorders - CKD stage 3 Musculoskeletal History: Reports: Hx Arthritis, Hx Back Problems, Other Musculoskeletal History - spinal stenosis Sensory History: Reports: Hx Cataracts - surgery with implants bilat eyes 96, Hx Contacts or Glasses Denies: Hx Deafness, Hx Hearing Aid Opthamlomology History: Reports: Hx Cataracts - surgery with implants bilat eyes 96, Hx Contacts or Glasses Neurological History: Reports: Other Neuro Impairments/Disorders - vertigo Psychiatric History: Reports: Other Psychiatric Issues/Disorders - PT REPORTS "STRESS" AND SAYS HER MD GAVE HER A MED FOR IT, UNSURE WHAT Denies: Hx Panic Disorder - Surgical History Surgery Procedure, Year, and Place: HERNIA. HYSTERECTOMY. CATERACTS. CARPAL TUNNEL. CYSTS REMOVED FROM BILATERAL ARMPITS. RTC RT. LT FOOT SURGERY - Immunization History Date of Tetanus Vaccine: > 10 yers Date of Influenza Vaccine: [id number] Infectious Disease History: Denies: Hx of Known/Suspected MRSA, Traveled Outside the [place] in Last 30 Days - Family History Known Family History: Positive: Other - Yes - CHF (Mother) - Social History Alcohol Use: None Substance Use Type: Reports: None Hx Tobacco Use: Yes Smoking Status (MU): Former Smoker Have You Smoked in the Last Year: No Review of Systems Negative: Fever, Fatigue Negative: Chest Pain Gastrointestinal: Other - POSITIVE - HEMATEMESIS; NEGATIVE - CONSTIPATION, CHANGE IN BOWEL MOVEMENTS Positive: Abdominal Pain, Vomiting, Nausea. Negative: Diarrhea Neurological: Other - NEGATIVE - LIGHT-HEADEDNESS Negative: Syncope All Other Systems Reviewed And Are Negative: Yes Physical Exam - Summary Physical Exam Summary: Appearance: Well appearing, no pain distress Skin: warm, dry, reflects adequate perfusion Head/face: normal Eyes: EOMI, GENNY ENT: mucous membranes moist Neck: supple, non-tender Respiratory: breath sounds present, expiratory wheezes in left lung base Cardiovascular: RRR, pulses symmetrical Abdomen: protruding but non-tender, soft Bowel Sounds: present Musculoskeletal: strength/ROM intact; chronic BLE edema and dermatitis Neuro: normal, sensory motor intact, A&Ox3 Triage Information Reviewed: Yes Vital Signs On Initial Exam: Initial Vitals Temp Pulse Resp BP Pulse Ox 98.1 F 85 23 171/105 94 06/30/18 07:54 06/30/18 07:54 06/30/18 07:54 06/30/18 07:54 06/30/18 07:54 Vital Signs Reviewed: Yes Procedures - NG Lavage NG Lavage: coffee grounds Diagnostics - Laboratory Result Diagrams: 06/30/18 08:48 06/30/18 08:48 Lab Statement: Any lab studies that have been ordered have been reviewed, and results considered in the medical decision making process. - EKG 0843 Cardiac Rate: NL - rate of 81 BPM EKG Rhythm: Sinus Rhythm ST Segment: Non-Specific Summary of EKG Findings: EKG showed NSR 81 BPM, nonspecific ST, normal axis, long QT, LVH. GIGU Course/Dx - Course Course Of Treatment: Nurse's notes reviewed. Patient with reports of dark emesis. This confirmed with NG tube placement. Coffee-ground emesis evident. Patient with chronic anemia, hemoglobin today 0.0. Her blood sugar is also 600 without acidosis or anion gap. Concern was continued bleeding. IV Protonix bolus and drip given. She was also given IV TXA bolus and drip. Hospitalist will admit. Discussed the case with GI who performed endoscopy approximately 1 month ago. They feel that this bleeding is due to gastropathy. They plan to see her in consultation. - Diagnoses Differential Diagnoses - Female: Other - Gastritis, peptic ulcer disease, esophageal varices, cirrhosis Provider Diagnoses: Upper GI bleed, Iron deficiency anemia, Hyperglycemia due to type 2 diabetes mellitus, Cirrhosis of liver - Physician Notifications Discussed Care Of Patient With: Davie Akbar Time Discussed With Above Provider: 09:47 Instructed by Provider To: Other - Patient's case was discussed with Dr. Akbar at 0947, Dr. Akbar accepts for admission. 0958 - Patient's case was discussed with Dr. Brandon. - Critical Care Time Critical Care Time: 30-74 min - 30 MINUTES; CCT is EXCLUSIVE of separately billable procedures. Discharge - Sign-Out/Discharge Documenting (check all that apply): Patient Departure - admit - Discharge Plan Condition: Guarded Disposition: ADMITTED TO [facility] - Billing Disposition and Condition Condition: GUARDED Disposition: Admitted to [facility] - Attestation Statements Document Initiated by Vitaliy: Yes Documenting Scribe: ALFREDO MARLEY Provider For Whom Vitaliy is Documenting (Include Credential): STONEY MENDEZ MD Scribe Attestation: ALFREDO Benitez , scribed for STONEY MENDEZ MD on 06/30/18 at 1304. Scribe Documentation Reviewed: Yes Provider Attestation: The documentation as recorded by the ALFREDO puri accurately reflects the service I personally performed and the decisions made by me, STONEY MENDEZ MD Status of Scribe Document: Viewed
[2018-06-30] MEDS ORDERED: Lidocaine 2% JELLY* 6 ML JELLY TOPICAL ONE (08:14)
[2018-06-30] MEDS ORDERED: Pantoprazole IV* 40 MG IV ONE (08:38)
[2018-06-30] MEDS ORDERED: Pantoprazole* 80 mg IN NS 80 MG/250 ML BAG IVPB ONE (08:38)
[2018-06-30] MEDS ORDERED: Lidocaine 2% JELLY* 20 ML (for OR use) TOPICAL ONE (09:00)
[2018-06-30 09:16] LABS: Activated Partial Thrombo Time 28.9 seconds (26.0-36.3); INR 1.09 (0.77-1.02)
[2018-06-30 09:17] LABS: Albumin 2.8 g/dL (3.2-5.2); Albumin/Globulin Ratio 0.8 (1-3); BUN/Creatinine Ratio 35.6 (8-20); Calcium 8.6 mg/dL (8.6-10.3); EGFR Non-African American 51.5 (>60); Globulin 3.6 g/dL (2-4); Potassium 4.7 mmol/L (3.5-5.0); Total Bilirubin 0.6 mg/dL (0.2-1.0); Total Protein 6.4 g/dL (6.4-8.9)
[2018-06-30] MEDS ORDERED: NS 0.9% 1000 ML* 1,000 ML IV ONE (09:23)
[2018-06-30] MEDS ORDERED: Insulin REGULAR(*) 1 UNITS UNIT IV PUSH ONE (09:23)
[2018-06-30 09:46] LABS: Hematocrit 26 % (35-47); Mean Corpuscular HGB Conc 31 g/dl (31-36); Mean Corpuscular Hemoglobin 24 pg (27-31); Mean Corpuscular Volume 80 fL (80-97); Red Blood Count 3.28 10^6/ul (4.00-5.40); Red Cell Distribution Width 22 % (10.5-15); White Blood Count 7.7 10^3/ul (3.5-10.8)
[2018-06-30] MEDS ORDERED: Tranexamic Acid 1,000 MG/10 ML SDV IV ONE (09:56)
[2018-06-30 10:10] LABS: ABS Basophils 0.1 10^3/ul (0-0.2); ABS Eosinophils 0.2 10^3/ul (0-0.6); ABS Lymphocytes 0.8 10^3/ul (1.0-4.8); ABS Monocytes 0.4 10^3/ul (0-0.8); ABS Neutrophils 6.2 10^3/ul (1.5-7.7); ABS Nucleated RBC 0 10^3/ul; Eosinophil % 2.6 %; Lymphocyte % 10.7 %; Mean Platelet Volume 11.2 fL (7.4-10.4); Nucleated Red Blood Cells % 0.2; Platelet Count 129 10^3/ul (150-450)
[2018-06-30] MEDS ORDERED: Tranexamic Acid 1,000 MG/10 ML 1,000 MG in NS 0.9% 50 ML* 50 ML IV ONE (10:11)
[2018-06-30] MEDS ORDERED: Ondansetron INJ* 2 MG/ML VIAL IV ONE (10:20)
[2018-06-30] MEDS ORDERED: Acetaminophen TAB* 325 MG PO PRN (11:08)
[2018-06-30] MEDS ORDERED: Albuterol HFA INHALER* 8 gm MDI INH PRN (11:12)
[2018-06-30] MEDS ORDERED: Dextrose 50% Syringe 50 ML* 25 GM/50 ML SYRINGE IV PUSH PRN (11:16)
[2018-06-30] MEDS ORDERED: PROCHLORPERAZINE INJ 5 MG/ML 2 ML VIAL IV ONE (11:35)
[2018-06-30] MEDS ORDERED: Erythromycin Lactobionate VIAL 250 MG in NS 0.9% 100 ML* 100 ML IVPB ONE (13:22)
[2018-06-30] MEDS: Insulin LISPRO* 1 UNITS UNIT SUBCUT SCH (13:49)
[2018-06-30] MEDS ORDERED: Insulin REGULAR(*) 1 UNITS UNIT SUBCUT ONE ×2 (14:00→16:10)
[2018-06-30 14:57] LABS: Hematocrit 25 % (35-47); Hemoglobin 7.8 g/dl (12.0-16.0)
--- NOTE | 2018-06-30 15:32 | HP ---
CC: Dr. Moyer; Dr. Marcial.* ADMISSION HISTORY AND PHYSICAL: DATE OF ADMISSION: 06/30/18 PRIMARY CARE PROVIDER: Dr. Moyer. ENGINEERING ASSISTANT: Dr. Marcial. HEALTHCARE PROXY: Her daughter, Mona. CODE STATUS: DNR, MOLST completed. CHIEF COMPLAINT: Black emesis. SOURCE OF INFORMATION: History obtained from interview with the patient. RELIABILITY: Good. HISTORY OF PRESENT ILLNESS: This is a 77-year-old female with past medical history including anemia with multiple ER visits and hospital stays. Extensive workup including capsule endoscopy upper and lower, endoscopy of last lower believed on 06/06/18, with suspected source of chronic anemia or GI bleed thought from AVMs identified in her jejunum and distal ileum. She additionally has a history of cirrhosis thought in setting of HUERTA as well as portal hypertensive gastropathy with small duodenal polyps identified in last upper endoscopy. On 04/13/18, she presented with chest pain and dyspnea on exertion and with hemoglobin of 6.1. On 05/28/18, she again presented with chest pain, dyspnea on exertion and hemoglobin of 5.6. Today, she woke up, had an episode of nausea and vomited dark brown fluid, thought it was blood. Vomited again, activated EMS, presented to the emergency room. She notes her bowel movements are brown for last several days, they are typically dark. She had no chest pain or dyspnea on exertion. She felt exertion. She did feel lightheaded this morning, although resolved at this time. She has had abdominal pain, reports this is chronic. She additionally reports that she feels thirsty. After last endoscopy, recommendations included full enteroscopy at a referral center or consideration for TIPS. In the emergency room, she was given a unit pack of red blood cells as well as started on Proton inhibitor bolus and drip as well as TXA. When seen by this author, her only complaint was feeling thirsty. PAST MEDICAL HISTORY: Includes chronic anemia thought secondary to AVMs indicated above; insulin-dependent type 2 diabetes; combined diastolic-systolic heart dysfunction, last EF 45% to 50%; CKD stage II; hypertension; hypothyroidism; COPD; hyperlipidemia; spinal stenosis; cirrhosis thought secondary to HUERTA; arthritis; neuropathy; hiatal hernia. PAST SURGICAL HISTORY: Includes hernia repair, cataract extraction, partial hysterectomy, rotator cuff repair, ORIF of the foot, carpal tunnel release. MEDICATIONS: Include: 1. Vitamin B12 1000 mcg sublingual daily. 2. Carvedilol 25 mg twice daily. 3. Bumetanide 2 mg twice daily. 4. Albuterol 1 puff p.o. every 4 hours as needed. 5. Acetaminophen 325 mg every 6 hours as needed. 6. Sublingual nitroglycerin. 7. Multivitamin 1 tab daily. 8. Losartan 50 mg daily. 9. Levothyroxine 25 mcg twice daily. 10. Insulin Lantus 70 units in the morning and 40 units at night. 11. Ferrous gluconate 325 mg twice daily. 12. Triamcinolone cream topically daily as needed. 13. Terazosin 10 mg at bedtime. 14. Simvastatin 20 mg at bedtime. 15. Potassium chloride 20 mEq twice daily. 16. Omeprazole 20 mg twice daily. 17. Nystatin powder topically as needed. ALLERGIES: CAPTOPRIL. FAMILY HISTORY: Includes heart disease, dementia, and diabetes in her mother. SOCIAL HISTORY: Former tobacco, no alcohol or illicits. Currently identifies her healthcare proxy as her daughter, Mona, not her Alejandro who is present in the room. REVIEW OF SYSTEMS: As per HPI, otherwise all other systems negative. PHYSICAL EXAMINATION GENERAL: Obese female sitting up in bed. She has an NG tube placed, which drained 700 mL of dark fluid. VITAL SIGNS: In the emergency room, 119/55, heart rate 80, respiratory rate ranges between 19 and 26, O2 saturation 95% on room air, T-max 98.1. HEENT: Her oropharynx is clear. She has dry mucous membranes. Her sclerae are anicteric. LUNGS: Her lungs are clear to auscultation. HEART: She has regular rate and rhythm. ABDOMEN: Soft. She has tenderness in right upper quadrant. No rebound or guarding. Positive bowel sounds. EXTREMITIES: Warm and well perfused. Trace lower extremity edema. NEUROLOGIC: She is alert and oriented x3. Cranial nerves II through XII are intact. She has no apparent anxiety, agitation or depression. PERTINENT LABORATORY DATA: Hemoglobin on presentation 8.0, platelets 129, INR is 1.09, creatinine is 1.04, glucose 605, lactic acid 1.7, alk phos 200. EKG: Normal sinus rhythm, normal axis, possible left ventricular hypertrophy, 1 -mm ST depressions in lead 1 and aVL. ASSESSMENT AND PLAN: This is a 77-year-old female, history of chronic anemia thought in the setting of AVMs; also note history of portal hypertensive gastropathy in setting of her cirrhosis thought in the setting of HUERTA, presented with dark black emesis concerned for upper GI bleed. Gastrointestinal bleed: Given Protonix bolus and started on drips as well as TXA in emergency room, as well as started on 1 unit of blood by emergency room physician. GI was consulted by the emergency room. We will touch base with them whose original assessment prior to seeing the patient is bleeding secondary to portal gastropathy. We will continue unit of blood now after which we will check H and H 1 hour after transfusion and decide about need for additional transfusions. We will cycle H and H's every 4 hours regardless. Congestive heart failure: Hold Bumex currently in the setting of potential blood loss. Type 2 diabetes with hyperglycemia, received 10 units of regular insulin in ED. We will follow blood sugar. Decrease Lantus doses in the setting of n.p.o. status, trend fingersticks every 6 hours with sliding scale insulin lispro with highest dose. ST depressions noticed on EKG. Add on troponin to presenting labs. History of hypertension, continue home medications with hold parameters. DVT prophylaxis contraindicated. Continue with mechanical DVT prophylaxis. Code status: DNR , discussed with the patient. New form filled out. [id number]/[facility] #: [id number] MTDD
[2018-06-30] MEDS ORDERED: fentaNYL* 50 MCG/ML 2 ML VIAL (100 MCG VIAL) ONE (16:02)
[2018-06-30] MEDS ORDERED: Midazolam* 1 MG/ML 10 ML VIAL (10 MG) ONE (16:02)
[2018-06-30] MEDS: Octreotide Acetate* 500 MCG in NS 0.9% 100 ML* 100 ML IVPB SCH (17:32)
[2018-06-30] MEDS ORDERED: Octreotide Acetate* 50 MCG in NS 0.9% 50 ML* 50 ML IVPB ONE (18:00)
[2018-06-30] MEDS: Ondansetron INJ* 2 MG/ML VIAL IV PRN ×2 (18:26→22:13)
[2018-06-30] MEDS ORDERED: Insulin LISPRO* 1 UNITS UNIT SUBCUT ONE (19:11)
[2018-06-30 19:38] LABS: Hematocrit 26 % (35-47); Hemoglobin 8.2 g/dl (12.0-16.0)
[2018-06-30] MEDS ORDERED: Insulin GLARGINE(*) 1 UNITS UNIT SUBCUT SCH (21:00)
[2018-06-30] MEDS: Terazosin CAP* 5 MG PO SCH (21:03)
[2018-06-30] MEDS: Potassium Chlor TAB* 20 MEQ TAB.ER PO SCH (21:03)
[2018-06-30] MEDS: Ferrous Gluconate TAB* 324 MG TAB PO SCH (21:04)
[2018-06-30] MEDS: Carvedilol TAB* 25 MG PO SCH (21:05)
[2018-06-30] MEDS ORDERED: Insulin LISPRO* 1 UNITS UNIT SUBCUT SCH (22:00)
[2018-06-30 23:09] LABS: Hematocrit 24 % (35-47); Hemoglobin 7.7 g/dl (12.0-16.0)
[2018-06-30] MEDS ORDERED: Insulin IVPB 100 units/100 ml 100 UNITS/100 ML UNIT IVPB SCH (23:45)
[2018-07-01] MEDS ORDERED: Insulin LISPRO* 1 UNITS UNIT SUBCUT SCH
[2018-07-01 03:43] LABS: Hematocrit 28 % (35-47); Hemoglobin 9.1 g/dl (12.0-16.0)
[2018-07-01] MEDS: Octreotide Acetate* 500 MCG in NS 0.9% 100 ML* 100 ML IVPB SCH ×2 (03:43→12:46)
[2018-07-01] MEDS: Levothyroxine TAB* 25 MCG TAB PO SCH (06:30)
[2018-07-01 07:04] LABS: Hematocrit 27 % (35-47)
[2018-07-01] MEDS: Insulin LISPRO* 1 UNITS UNIT SUBCUT SCH ×5 (07:28→22:06)
[2018-07-01] MEDS: Ondansetron INJ* 2 MG/ML VIAL IV PRN ×2 (08:13→12:53)
[2018-07-01] MEDS: Insulin GLARGINE(*) 1 UNITS UNIT SUBCUT SCH ×2 (08:13→22:04)
[2018-07-01] MEDS: Ferrous Gluconate TAB* 324 MG TAB PO SCH ×2 (08:14→22:07)
[2018-07-01] MEDS: Atorvastatin* 10 MG TAB PO SCH (08:14)
[2018-07-01] MEDS: Potassium Chlor TAB* 20 MEQ TAB.ER PO SCH ×2 (08:14→22:08)
[2018-07-01] MEDS: Losartan TAB* 25 MG PO SCH (08:14)
[2018-07-01] MEDS: Vitamin THERAPEUTIC TAB PO SCH (08:14)
[2018-07-01] MEDS: Carvedilol TAB* 25 MG PO SCH ×2 (08:14→22:08)
[2018-07-01] MEDS: Omeprazole CAP (NF) 20 MG CAP.DR PO SCH ×2 (08:14→17:39)
--- NOTE | 2018-07-01 10:23 | PN ---
Subjective Date of Service: 07/01/18 Interval History: No nausea or pain. Last emesis yesterday afternoon. No BM since admission. Objective Active Medications: Acetaminophen (Tylenol Tab*) 650 mg PO Q4H PRN PRN Reason: FEVER/PAIN Albuterol (Ventolin Hfa Inhaler*) 1 puff INH Q4H PRN PRN Reason: SOB/WHEEZING Atorvastatin Calcium (Lipitor*) 10 mg PO DAILY [facility] Last Admin: 07/01/18 08:14 Dose: 10 mg Carvedilol (Coreg Tab*) 25 mg PO BID [facility] Last Admin: 07/01/18 08:14 Dose: 25 mg Dextrose (D50w Syringe 50 Ml*) 12.5 gm IV PUSH .FOR FS < 60 - SS PRN PRN Reason: FS < 60 Ferrous Gluconate (Fergon Tab*) 325 mg PO BID [facility] Last Admin: 07/01/18 08:14 Dose: 324 mg Octreotide Acetate 500 mcg/ (Sodium Chloride) 101 mls @ 10.1 mls/hr IVPB Q10H [facility] Last Admin: 07/01/18 03:43 Dose: 10.1 mls/hr Insulin Glargine (Lantus(*)) 55 units SUBCUT DAILY [facility] Last Admin: 07/01/18 08:13 Dose: 55 unit Insulin Glargine (Lantus(*)) 25 units SUBCUT BEDTIME [facility] Last Admin: 06/30/18 21:04 Dose: 25 units Insulin Human Lispro (Humalog*) 0 units SUBCUT FS Q4 ICU [facility]; Protocol Last Admin: 07/01/18 07:55 Dose: Not Given Levothyroxine Sodium (Synthroid Tab*) 25 mcg PO DAILY@0600 [facility] Last Admin: 07/01/18 06:30 Dose: 25 mcg Losartan Potassium (Cozaar Tab*) 50 mg PO DAILY [facility] Last Admin: 07/01/18 08:14 Dose: 50 mg Multivitamins (Theragran Tab*) 1 tab PO DAILY [facility] Last Admin: 07/01/18 08:14 Dose: 1 tab Omeprazole (Prilosec Cap*) 20 mg PO BID AC [facility] Last Admin: 07/01/18 08:14 Dose: 20 mg Ondansetron HCl (Zofran Inj*) 4 mg IV Q4H PRN PRN Reason: NAUSEA Last Admin: 07/01/18 08:13 Dose: 4 mg Potassium Chloride (Klor Con Er Tab*) 20 meq PO BID [facility] Last Admin: 07/01/18 08:14 Dose: 20 meq Terazosin HCl (Hytrin Cap*) 10 mg PO BEDTIME [facility] Last Admin: 06/30/18 21:03 Dose: 10 mg Vital Signs - 8 hr 07/01/18 07/01/18 07/01/18 02:30 02:45 03:00 Temperature Pulse Rate 72 75 72 Respiratory 17 Rate Blood Pressure 129/54 131/55 110/47 (mmHg) O2 Sat by Pulse 94 96 94 Oximetry 07/01/18 07/01/18 07/01/18 03:01 03:15 03:30 Temperature Pulse Rate 73 74 75 Respiratory Rate Blood Pressure 117/51 105/48 (mmHg) O2 Sat by Pulse 93 93 97 Oximetry 07/01/18 07/01/18 07/01/18 03:45 03:48 04:00 Temperature 96.9 F Pulse Rate 76 76 Respiratory 19 Rate Blood Pressure 122/53 98/61 (mmHg) O2 Sat by Pulse 97 98 Oximetry 07/01/18 07/01/18 07/01/18 04:15 04:30 04:45 Temperature Pulse Rate 74 74 77 Respiratory Rate Blood Pressure 121/53 123/46 145/65 (mmHg) O2 Sat by Pulse 93 94 99 Oximetry 07/01/18 07/01/18 07/01/18 05:00 05:01 05:15 Temperature Pulse Rate 73 72 71 Respiratory 15 Rate Blood Pressure 126/53 118/50 (mmHg) O2 Sat by Pulse 97 97 95 Oximetry 07/01/18 07/01/18 07/01/18 05:30 05:45 06:00 Temperature Pulse Rate 71 72 69 Respiratory 17 Rate Blood Pressure 115/57 111/60 139/47 (mmHg) O2 Sat by Pulse 92 97 97 Oximetry 07/01/18 07/01/18 07/01/18 06:01 06:15 06:30 Temperature Pulse Rate 73 69 72 Respiratory Rate Blood Pressure 133/52 146/54 (mmHg) O2 Sat by Pulse 97 93 90 Oximetry 07/01/18 07/01/18 07/01/18 06:45 07:00 07:01 Temperature Pulse Rate 66 72 66 Respiratory 20 Rate Blood Pressure 134/51 141/49 (mmHg) O2 Sat by Pulse 98 96 98 Oximetry 07/01/18 07/01/18 07/01/18 07:15 07:30 07:43 Temperature 98.5 F Pulse Rate 64 63 Respiratory Rate Blood Pressure 152/56 148/54 (mmHg) O2 Sat by Pulse 94 95 Oximetry 07/01/18 07/01/18 07/01/18 07:46 08:00 08:01 Temperature Pulse Rate 65 64 64 Respiratory 16 Rate Blood Pressure 146/58 148/59 (mmHg) O2 Sat by Pulse 99 99 99 Oximetry 07/01/18 07/01/18 07/01/18 09:00 09:02 10:00 Temperature Pulse Rate 65 67 64 Respiratory 27 17 14 Rate Blood Pressure 104/34 (mmHg) O2 Sat by Pulse 99 100 100 Oximetry 07/01/18 10:01 Temperature Pulse Rate 64 Respiratory 25 Rate Blood Pressure 155/55 (mmHg) O2 Sat by Pulse 100 Oximetry Oxygen Devices in Use Now: Nasal Cannula Appearance: Alert, partly up in ICU bed. In good spirits. Looks comfortable. Eyes: No Scleral Icterus Respiratory: Clear to Auscultation, Clear to Percussion Cardiovascular: NL Sounds; No Murmurs; No JVD, RRR, No Edema, - Skin: No Rash or Ulcers, No Nodules or Sclerosis, - Neurological: Alert and Oriented x 3, NL Sensation Result Diagrams: 07/01/18 06:35 06/30/18 08:48 Microbiology and Other Data: Microbiology 06/30/18 12:50 Nasal Screen MRSA (PCR) - Final Nasal Mrsa Not Detected Assess/Plan/Problems-Billing Assessment: - Patient Problems (1) UGI bleed Current Visit: Yes Status: Acute Code(s): K92.2 - GASTROINTESTINAL HEMORRHAGE, UNSPECIFIED SNOMED Code(s): 02141727 Comment: Hematemesis of black emesis. High BUN/creat ration. Received 1 U PC's 06/30, on 07/01 H&H about the same as on admission. No BM. Complex case with portal HTN, AVM's, polyps, multiple diagnostic procedures. EGD planned for 07/02. Can fup with Dr. Marcial, possible referral for TIPS and/or complete enteroscopy. (2) HUERTA (nonalcoholic steatohepatitis) Current Visit: Yes Status: Acute Code(s): K75.81 - NONALCOHOLIC STEATOHEPATITIS (HUERTA) SNOMED Code(s): 105354849 Comment: By hx. Albumin 2.8 on 06/30/18, INR 1.09. (3) Non-ischemic cardiomyopathy Current Visit: Yes Status: Acute Code(s): I42.8 - OTHER CARDIOMYOPATHIES SNOMED Code(s): 31503943 Comment: In past LVEF 20 %, most recently 45-50%. Clean coronaries on prior cath's, last in 2008. Uses O2 at home with exertion. Continue carvedilol, losartan. (4) Type 2 diabetes mellitus Current Visit: No Status: Chronic Comment: Continue lantus, increase PM dose to 30 start PM 07/01 due to increased due. Will be NPO aftern [place] for EGD 07/02 , will not increase AM dose yet. Continue lispro sliding scale (5) Morbid obesity Current Visit: Yes Status: Acute Code(s): E66.01 - MORBID (SEVERE) OBESITY DUE TO EXCESS CALORIES SNOMED Code(s): 530565665 Comment: BMI 40.3 on 07/01/18.
[2018-07-01] MEDS: Terazosin CAP* 5 MG PO SCH (22:15)
[2018-07-01] MEDS: Nystatin TOP POWDER* 15 GM BTL TOPICAL SCH (22:31)
[2018-07-02] MEDS: Octreotide Acetate* 500 MCG in NS 0.9% 100 ML* 100 ML IVPB SCH ×2 (00:01→14:01)
[2018-07-02] MEDS: Levothyroxine TAB* 25 MCG TAB PO SCH (06:08)
[2018-07-02 06:46] LABS: ABS Basophils 0.1 10^3/ul (0-0.2); ABS Eosinophils 0.5 10^3/ul (0-0.6); ABS Lymphocytes 1.2 10^3/ul (1.0-4.8); ABS Monocytes 0.6 10^3/ul (0-0.8); ABS Neutrophils 4.8 10^3/ul (1.5-7.7); ABS Nucleated RBC 0 10^3/ul; Eosinophil % 6.9 %; Hematocrit 27 % (35-47); Hemoglobin 8.5 g/dl (12.0-16.0); Lymphocyte % 17.1 %; Mean Corpuscular HGB Conc 32 g/dl (31-36); Mean Corpuscular Hemoglobin 27 pg (27-31); Mean Corpuscular Volume 83 fL (80-97); Mean Platelet Volume 10.4 fL (7.4-10.4); Nucleated Red Blood Cells % 0.1; Platelet Count 109 10^3/ul (150-450); Red Blood Count 3.19 10^6/ul (4.00-5.40); Red Cell Distribution Width 21 % (10.5-15); White Blood Count 7.1 10^3/ul (3.5-10.8)
[2018-07-02 07:05] LABS: BUN/Creatinine Ratio 33.6 (8-20); Calcium 7.8 mg/dL (8.6-10.3); EGFR Non-African American 46.8 (>60); Potassium 3.9 mmol/L (3.5-5.0)
[2018-07-02] MEDS: Insulin LISPRO* 1 UNITS UNIT SUBCUT SCH ×4 (07:54→20:14)
[2018-07-02] MEDS: Nystatin TOP POWDER* 15 GM BTL TOPICAL SCH ×3 (08:56→20:14)
[2018-07-02] MEDS: Losartan TAB* 25 MG PO SCH (08:57)
[2018-07-02] MEDS: Carvedilol TAB* 25 MG PO SCH ×2 (08:57→20:14)
[2018-07-02] MEDS: Vitamin THERAPEUTIC TAB PO SCH (08:57)
[2018-07-02] MEDS: Ferrous Gluconate TAB* 324 MG TAB PO SCH ×2 (08:57→20:14)
[2018-07-02] MEDS: Omeprazole CAP (NF) 20 MG CAP.DR PO SCH ×2 (08:57→17:29)
[2018-07-02] MEDS: Atorvastatin* 10 MG TAB PO SCH (08:58)
[2018-07-02] MEDS: Potassium Chlor TAB* 20 MEQ TAB.ER PO SCH ×2 (08:58→20:14)
[2018-07-02] MEDS: Insulin GLARGINE(*) 1 UNITS UNIT SUBCUT SCH ×2 (08:58→20:13)
--- NOTE | 2018-07-02 13:35 | PN ---
Subjective Date of Service: 07/02/18 Interval History: Planned for EGD tomorrow, no further hematemesis, no blood in stools. No abdominal pain. Objective Active Medications: Acetaminophen (Tylenol Tab*) 650 mg PO Q4H PRN PRN Reason: FEVER/PAIN Albuterol (Ventolin Hfa Inhaler*) 1 puff INH Q4H PRN PRN Reason: SOB/WHEEZING Atorvastatin Calcium (Lipitor*) 10 mg PO DAILY [facility] Last Admin: 07/02/18 08:58 Dose: 10 mg Carvedilol (Coreg Tab*) 25 mg PO BID [facility] Last Admin: 07/02/18 08:57 Dose: 25 mg Dextrose (D50w Syringe 50 Ml*) 12.5 gm IV PUSH .FOR FS < 60 - SS PRN PRN Reason: FS < 60 Ferrous Gluconate (Fergon Tab*) 324 mg PO BID [facility] Last Admin: 07/02/18 08:57 Dose: 324 mg Octreotide Acetate 500 mcg/ (Sodium Chloride) 101 mls @ 10.1 mls/hr IVPB Q10H [facility] Last Admin: 07/02/18 00:01 Dose: 10.1 mls/hr Insulin Glargine (Lantus(*)) 55 units SUBCUT DAILY [facility] Last Admin: 07/02/18 08:58 Dose: 55 unit Insulin Glargine (Lantus(*)) 30 units SUBCUT BEDTIME [facility] Last Admin: 07/01/18 22:04 Dose: 30 units Insulin Human Lispro (Humalog*) 0 units SUBCUT ACHS [facility]; Protocol Last Admin: 07/02/18 12:58 Dose: 6 units Levothyroxine Sodium (Synthroid Tab*) 25 mcg PO DAILY@0600 [facility] Last Admin: 07/02/18 06:08 Dose: 25 mcg Losartan Potassium (Cozaar Tab*) 50 mg PO DAILY [facility] Last Admin: 07/02/18 08:57 Dose: 50 mg Multivitamins (Theragran Tab*) 1 tab PO DAILY [facility] Last Admin: 07/02/18 08:57 Dose: 1 tab Nystatin (Nystatin Top Powder*) 1 applic TOPICAL TID [facility] Last Admin: 07/02/18 08:56 Dose: 1 applic Omeprazole (Prilosec Cap*) 20 mg PO BID AC [facility] Last Admin: 07/02/18 08:57 Dose: 20 mg Ondansetron HCl (Zofran Inj*) 4 mg IV Q4H PRN PRN Reason: NAUSEA Last Admin: 07/01/18 12:53 Dose: 4 mg Potassium Chloride (Klor Con Er Tab*) 20 meq PO BID [facility] Last Admin: 07/02/18 08:58 Dose: 20 meq Terazosin HCl (Hytrin Cap*) 10 mg PO BEDTIME [facility] Last Admin: 07/01/18 22:15 Dose: 10 mg Vital Signs - 8 hr 07/02/18 07/02/18 07:11 07:24 Temperature 97.8 F Pulse Rate 62 Respiratory 18 16 Rate Blood Pressure 150/59 (mmHg) O2 Sat by Pulse 100 Oximetry Oxygen Devices in Use Now: Nasal Cannula Result Diagrams: 07/02/18 06:13 07/02/18 06:13 Microbiology and Other Data: Microbiology 06/30/18 12:50 Nasal Screen MRSA (PCR) - Final Nasal Mrsa Not Detected Assess/Plan/Problems-Billing Assessment: - Patient Problems (1) UGI bleed Current Visit: Yes Status: Acute Code(s): K92.2 - GASTROINTESTINAL HEMORRHAGE, UNSPECIFIED SNOMED Code(s): 81643921 Comment: Hematemesis of black emesis. Had EGD done 06/30: showed grade 2-3 esphageal varices, large blood clot, could not identify source of bleeding due to large amount of blood in the system. Received 1 U PC's 06/30 . Complex case with portal HTN, AVM's, polyps, multiple diagnostic procedures. Repeat EGD planned for 07/03. (2) HUERTA (nonalcoholic steatohepatitis) Current Visit: Yes Status: Acute Code(s): K75.81 - NONALCOHOLIC STEATOHEPATITIS (HUERTA) SNOMED Code(s): 232720636 Comment: By hx. Albumin 2.8 on 06/30/18, INR 1.09. (3) Non-ischemic cardiomyopathy Current Visit: Yes Status: Acute Code(s): I42.8 - OTHER CARDIOMYOPATHIES SNOMED Code(s): 47200321 Comment: In past LVEF 20 %, most recently 45-50%. Clean coronaries on prior cath's, last in 2008. Uses O2 at home with exertion. Continue carvedilol, losartan. (4) DM2 (diabetes mellitus, type 2) Current Visit: No Status: Acute Comment: -Continue home Lantus (5) DVT prophylaxis Current Visit: No Status: Acute Code(s): TAB3378 - SNOMED Code(s): 228783423 Comment: - SCDs -Pharmacologic prophylaxis contraindicated due to GIB (6) Morbid obesity Current Visit: Yes Status: Acute Code(s): E66.01 - MORBID (SEVERE) OBESITY DUE TO EXCESS CALORIES SNOMED Code(s): 118846746 Comment: BMI 40.3 on 07/01/18.
[2018-07-02] MEDS: Terazosin CAP* 5 MG PO SCH (20:15)
[2018-07-03] MEDS: Octreotide Acetate* 500 MCG in NS 0.9% 100 ML* 100 ML IVPB SCH ×2 (01:13→12:12)
[2018-07-03] MEDS: Levothyroxine TAB* 25 MCG TAB PO SCH (05:25)
[2018-07-03 07:09] LABS: ABS Basophils 0.1 10^3/ul (0-0.2); ABS Eosinophils 0.4 10^3/ul (0-0.6); ABS Lymphocytes 0.8 10^3/ul (1.0-4.8); ABS Monocytes 0.5 10^3/ul (0-0.8); ABS Neutrophils 3.9 10^3/ul (1.5-7.7); ABS Nucleated RBC 0 10^3/ul; Eosinophil % 6.3 %; Hematocrit 26 % (35-47); Hemoglobin 8.5 g/dl (12.0-16.0); Lymphocyte % 14.5 %; Mean Corpuscular HGB Conc 32 g/dl (31-36); Mean Corpuscular Hemoglobin 27 pg (27-31); Mean Corpuscular Volume 83 fL (80-97); Mean Platelet Volume 10.6 fL (7.4-10.4); Nucleated Red Blood Cells % 0.2; Platelet Count 107 10^3/ul (150-450); Red Blood Count 3.16 10^6/ul (4.00-5.40); Red Cell Distribution Width 21 % (10.5-15); White Blood Count 5.7 10^3/ul (3.5-10.8)
[2018-07-03] MEDS: Insulin LISPRO* 1 UNITS UNIT SUBCUT SCH ×4 (07:35→21:19)
[2018-07-03] MEDS: Nystatin TOP POWDER* 15 GM BTL TOPICAL SCH ×3 (08:13→21:24)
[2018-07-03] MEDS ORDERED: Midazolam* 1 MG/ML 10 ML VIAL (10 MG) ONE (10:36)
[2018-07-03] MEDS ORDERED: fentaNYL* 50 MCG/ML 2 ML VIAL (100 MCG VIAL) ONE (10:36)
[2018-07-03] MEDS: Potassium Chlor TAB* 20 MEQ TAB.ER PO SCH ×2 (12:17→21:22)
[2018-07-03] MEDS: Vitamin THERAPEUTIC TAB PO SCH (12:17)
[2018-07-03] MEDS: Atorvastatin* 10 MG TAB PO SCH (12:17)
[2018-07-03] MEDS: Ferrous Gluconate TAB* 324 MG TAB PO SCH ×2 (12:17→21:24)
[2018-07-03] MEDS: Losartan TAB* 25 MG PO SCH (12:17)
--- NOTE | 2018-07-03 12:20 | PN ---
Subjective Date of Service: 07/03/18 Interval History: Had EGD today,. Currently no complaints, no chest pain, no palpitations, Objective Active Medications: Acetaminophen (Tylenol Tab*) 650 mg PO Q4H PRN PRN Reason: FEVER/PAIN Albuterol (Ventolin Hfa Inhaler*) 1 puff INH Q4H PRN PRN Reason: SOB/WHEEZING Atorvastatin Calcium (Lipitor*) 10 mg PO DAILY [facility] Last Admin: 07/03/18 12:17 Dose: 10 mg Carvedilol (Coreg Tab*) 12.5 mg PO BID [facility] Dextrose (D50w Syringe 50 Ml*) 12.5 gm IV PUSH .FOR FS < 60 - SS PRN PRN Reason: FS < 60 Last Admin: 07/03/18 08:06 Dose: 12.5 gm Ferrous Gluconate (Fergon Tab*) 324 mg PO BID [facility] Last Admin: 07/03/18 12:17 Dose: 324 mg Octreotide Acetate 500 mcg/ (Sodium Chloride) 101 mls @ 10.1 mls/hr IVPB Q10H [facility] Last Admin: 07/03/18 12:12 Dose: 10.1 mls/hr Insulin Glargine (Lantus(*)) 55 units SUBCUT DAILY [facility] Last Admin: 07/02/18 08:58 Dose: 55 unit Insulin Glargine (Lantus(*)) 30 units SUBCUT BEDTIME [facility] Last Admin: 07/02/18 20:13 Dose: 30 units Insulin Human Lispro (Humalog*) 0 units SUBCUT ACHS [facility]; Protocol Last Admin: 07/03/18 07:35 Dose: Not Given Levothyroxine Sodium (Synthroid Tab*) 25 mcg PO DAILY@0600 [facility] Last Admin: 07/03/18 05:25 Dose: 25 mcg Losartan Potassium (Cozaar Tab*) 50 mg PO DAILY [facility] Last Admin: 07/03/18 12:17 Dose: 50 mg Multivitamins (Theragran Tab*) 1 tab PO DAILY [facility] Last Admin: 07/03/18 12:17 Dose: 1 tab Nystatin (Nystatin Top Powder*) 1 applic TOPICAL TID [facility] Last Admin: 07/03/18 08:13 Dose: 1 applic Omeprazole (Prilosec Cap*) 20 mg PO BID AC [facility] Last Admin: 07/02/18 17:29 Dose: 20 mg Ondansetron HCl (Zofran Inj*) 4 mg IV Q4H PRN PRN Reason: NAUSEA Last Admin: 07/01/18 12:53 Dose: 4 mg Potassium Chloride (Klor Con Er Tab*) 20 meq PO BID [facility] Last Admin: 07/03/18 12:17 Dose: 20 meq Terazosin HCl (Hytrin Cap*) 10 mg PO BEDTIME [facility] Last Admin: 07/02/18 20:15 Dose: 10 mg Vital Signs - 8 hr 07/03/18 07/03/18 07:28 08:00 Temperature 97.7 F Pulse Rate 62 Respiratory 18 16 Rate Blood Pressure 158/70 (mmHg) O2 Sat by Pulse 100 Oximetry Oxygen Devices in Use Now: Nasal Cannula Appearance: Obese female, lying in bed, not in distress Eyes: PERRLA Respiratory: Clear to Auscultation Cardiovascular: RRR Abdominal: NL Sounds; No Tenderness; No Distention Neurological: Alert and Oriented x 3 Result Diagrams: 07/03/18 06:56 07/02/18 06:13 Microbiology and Other Data: Microbiology 06/30/18 12:50 Nasal Screen MRSA (PCR) - Final Nasal Mrsa Not Detected Assess/Plan/Problems-Billing Assessment: - Patient Problems (1) UGI bleed Current Visit: Yes Status: Acute Code(s): K92.2 - GASTROINTESTINAL HEMORRHAGE, UNSPECIFIED SNOMED Code(s): 56289385 Comment: Hematemesis of black emesis. Had EGD done 06/30: showed grade 2-3 esphageal varices, large blood clot, could not identify source of bleeding due to large amount of blood in the system. Received 1 U 's 06/30 Repeat EGD was done today. . Complex case with portal HTN, AVM's, polyps, multiple diagnostic procedures. Repeat EGD planned for 07/03. (2) HUERTA (nonalcoholic steatohepatitis) Current Visit: Yes Status: Acute Code(s): K75.81 - NONALCOHOLIC STEATOHEPATITIS (HUERTA) SNOMED Code(s): 049811615 Comment: By hx. Albumin 2.8 on 06/30/18, INR 1.09. (3) Non-ischemic cardiomyopathy Current Visit: Yes Status: Acute Code(s): I42.8 - OTHER CARDIOMYOPATHIES SNOMED Code(s): 39257920 Comment: In past LVEF 20 %, most recently 45-50%. Clean coronaries on prior cath's, last in 2008. Uses O2 at home with exertion. Continue carvedilol, losartan. coreg dose to 12.5 mg decreased for concern of low DBP, and HR. (4) DM2 (diabetes mellitus, type 2) Current Visit: No Status: Acute Comment: -Continue home Lantus (5) DVT prophylaxis Current Visit: No Status: Acute Code(s): FWR2921 - SNOMED Code(s): 761498015 Comment: - SCDs -Pharmacologic prophylaxis contraindicated due to GIB (6) Morbid obesity Current Visit: Yes Status: Acute Code(s): E66.01 - MORBID (SEVERE) OBESITY DUE TO EXCESS CALORIES SNOMED Code(s): 716271085 Comment: BMI 40.3 on 07/01/18.
[2018-07-03] MEDS: Insulin GLARGINE(*) 1 UNITS UNIT SUBCUT SCH ×2 (12:34→21:20)
[2018-07-03] MEDS: Omeprazole CAP (NF) 20 MG CAP.DR PO SCH ×2 (12:34→16:59)
--- NOTE | 2018-07-03 14:25 | PN ---
Hospitalist Progress Note Date of Service: 07/03/18 Patient is back from EGD, found two varices, status post banding. Discussed case with GI: okay to discontinue octreotide drip. repeat cbc tomorrow PT ordered.
--- NOTE | 2018-07-03 19:45 | CONS ---
CONSULTATION REPORT: DATE OF CONSULT: 06/30/18 REQUESTING PHYSICIAN: Dr. Thakur in the intensive care unit. INDICATION: Hematemesis. NARRATIVE: Ms. Hansen is a very pleasant 77-year-old female, who was admitted with nausea, vomiting, dark brown vomit x2. Her stool has been brown, but now black according to her. She is having mild epigastric pain. She had known cirrhosis, was just scoped by another cylinder inspector and tester, Dr. Marcial, a month ago. It revealed, according to him, small varices that were not banded. 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 She has had mild portal hypertensive gastropathy in the past also. She denies any nonsteroidals. She states that other than the mild epigastric pain she does feel a little tired. She does have an NG tube in place, which reveals a large amount of black liquid coming from the tube. PAST MEDICAL HISTORY: Significant for congestive heart failure; COPD, on O2; cirrhosis; diabetes; hypertension; hypothyroid; hyperlipidemia; anemia; spinal stenosis; chronic kidney disease. She had an endoscopy in September 2016, which showed nonbleeding duodenal polyps, nonbleeding duodenal AVMs. In March 2018 , she had 3 small varices and bulb erosions. On 05/30/18, EGD revealed portal hypertensive gastropathy. No varices were mentioned, however. She did have a capsule endoscopy in September 2016, which revealed multiple jejunal and ileal AVMs. PAST SURGICAL HISTORY: Hernia repair, hysterectomy, cataract surgery. MEDICATIONS UPON ADMISSION: Include: 1. Vitamins. 2. Carvedilol. 3. Albuterol. 4. Acetaminophen. 5. Multivitamin. 6. Losartan. 7. Synthroid. 8. Insulin. 9. Triamcinolone. 10. Terazosin. 11. Simvastatin. 12. Potassium. 13. Omeprazole. 14. Nystatin. ALLERGIES: She is allergic to CAPTOPRIL. FAMILY HISTORY: Coronary artery disease, dementia, and diabetes. SOCIAL HISTORY: She used to smoke tobacco. Rare alcohol. REVIEW OF SYSTEMS: Twelve systems were reviewed and other than that mentioned in the HPI were unremarkable. PHYSICAL EXAM: Temperature is 98.4, blood pressure is 152/74, pulse is 79, respiratory rate of 21, O2 sat is 94%. General: Chronically ill-appearing female, in no apparent distress, alert, oriented, pleasant, fluent. HEENT: Mucous membranes are moist without lesions, ulcers, or exudates. Neck is supple. Trachea is midline. Head is normocephalic, atraumatic. Heart: Regular rate and rhythm. No murmurs, rubs, or gallops. Lungs: Clear to auscultation bilaterally. No wheezes, rales, or rhonchi. Abdomen is obese. Positive bowel sounds. Soft, nontender, nondistended. No hepato-splenomegaly, masses, rebound or guarding were felt; however, she does have dull flanks and shifting dullness. Skin is warm and dry. No rashes were noted. LABORATORY DATA: Of note, her hemoglobin is 8.2. INR is 1.09. Glucose is greater than 444. Sodium is 143. BUN is 37, creatinine is 1.39. ASSESSMENT AND PLAN: This is a pleasant 77-year-old female with known cirrhosis , who presents with hematemesis. Possible etiologies could be her varices, could be peptic ulcer disease, could be her duodenal arteriovenous malformations. She is hemodynamically stable. I think we are going to have to perform another endoscopy for further evaluation, and determination of therapeutic maneuvers will be determined by the procedure. [id number]/[facility] #: [id number] MTDLinda
[2018-07-03] MEDS: Carvedilol TAB* 6.25 MG PO SCH (21:23)
[2018-07-03] MEDS: Terazosin CAP* 5 MG PO SCH (21:24)
--- NOTE | 2018-07-03 22:09 | PRO ---
CC: Neena Moyer MD. * DATE OF PROCEDURE: 07/03/18 - ROOM #411 PROCEDURE: EGD. INDICATION: Varices. REFERRING PHYSICIAN: Neena Moyer MD. MEDICATIONS GIVEN: 25 mcg IV fentanyl, 3 mg IV Versed. DESCRIPTION OF PROCEDURE: After the EGD procedure, including the risks, benefits, and alternatives, not limited to perforation, surgery, and/or were explained to the patient, written consent was then obtained. IV medication was given and a bite-block was placed between the teeth. An Olympus gastroscope was then inserted into the patient's mouth, advanced down the esophagus, into the stomach, into the distal duodenum. In the esophagus at the GE junction were noted two columns of esophageal varices, one column was grade 3 and one column was grade 1. I did elect to place bands on the grade 3 column. No stigmata of recent hemorrhage was seen. The scope was advanced through the GE junction into the body of the stomach. Retroflex view was unremarkable. Forward view did reveal some retained food. The patient 3 to 4 days ago had a previous endoscopy which revealed a very large clot. It had passed through. I did not see any ulcers or inflammation. She does have mild- to-moderate portal hypertensive gastropathy. The scope was advanced through a widely patent pylorus, into the duodenal bulb, into the distal duodenum. She does have polyps which she has had before. She had two small AVMs that were nonbleeding. I did not feel that this would be the culprit for the large clot she had in her gastric fundus. The scope was then withdrawn from the patient. An esophageal variceal band ligator was placed on to the tip of the scope, was reintroduced into the patient's mouth, advanced down the esophagus and into the stomach and then withdrawn back to the esophagus, and one band was placed on the grade 3 column of varices. The scope was then withdrawn from the patient. She tolerated the procedure well and was returned to the hospital room in stable condition. IMPRESSION: 1. Complete upper endoscopy into the distal duodenum with esophageal variceal band ligation. 2. Two columns of esophageal varices grade 3 and grade 1, esophageal variceal band was placed on the grade 3 column. 3. Retained food. 4. Nonbleeding duodenal arteriovenous malformations, unlikely to be the culprit for her recent bleed and clots in the fundus of her stomach. 5. We will continue to follow along very closely. [id number]/[facility] #: [id number] WENDY
--- NOTE | 2018-07-03 22:18 | PRO ---
DATE OF PROCEDURE: 06/30/18 - ROOM #411 LOCATION OF PROCEDURE: Intensive Care Unit. PROCEDURE PERFORMED: EGD. INDICATION: Hematemesis. MEDICATIONS GIVEN: 25 mcg IV fentanyl, 2 mg IV Versed. DESCRIPTION OF PROCEDURE: After the EGD procedure, including the risks, benefits, and alternatives, not limited to perforation, surgery, and/or were explained to Mrs. Hansen, written consent was then obtained. IV medication was given and a bite block was placed between the teeth. An Olympus gastroscope was then inserted into the patient's mouth, advanced down the esophagus into the stomach and into the distal duodenum. In the esophagus, there were two columns of esophageal varices. No stigmata of hemorrhage was seen. No red roderick signs. One was approximately grade 2 to 3. The other was smaller. Scope was advanced through the GE junction into the body of the stomach. In the body of the stomach, there was a large amount of dark blood like material. She also had a very large clot sitting in the fundus. I did try and suction and wash as much of this as I could and moved the patient around a little bit. However, I could never totally clear the clot. Unfortunately, we do not have erythromycin available to help with this, but no active bleeding was seen. The scope was advanced through a widely patent pylorus into the duodenal bulb and into the distal duodenum. She had numerous polyps, but no active bleeding was seen down here. The scope was then withdrawn from the patient. She tolerated the procedure well and was returned to the care of the ICU staff. IMPRESSION: 1. Complete upper endoscopy into the distal duodenum. 2. Nonbleeding esophageal varices. 3. Large fundic clot. 4. Duodenal polyps. 5. No etiology was seen for her bleeding. There is no active bleeding right now. Unfortunately, I could not totally clear the stomach. We do not have erythromycin available to us anymore. At this point, she is stable. I would recommend we continue with the octreotide and the PPI. I would like to re- scope her again in 1 to 2 days from now once her stomach is able to clear the blood. [id number]/[facility] #: [id number] MTDD
[2018-07-04] MEDS: Carvedilol TAB* 25 MG PO SCH (01:01)
[2018-07-04] MEDS: Levothyroxine TAB* 25 MCG TAB PO SCH (05:55)
[2018-07-04 06:35] LABS: Hematocrit 27 % (35-47); Hemoglobin 8.4 g/dl (12.0-16.0); Mean Corpuscular HGB Conc 31 g/dl (31-36); Mean Corpuscular Hemoglobin 27 pg (27-31); Mean Corpuscular Volume 84 fL (80-97); Red Blood Count 3.18 10^6/ul (4.00-5.40); White Blood Count 5.6 10^3/ul (3.5-10.8)
[2018-07-04 06:49] LABS: BUN/Creatinine Ratio 23.2 (8-20); Calcium 7.4 mg/dL (8.6-10.3); EGFR Non-African American 67.8 (>60); Potassium 4.4 mmol/L (3.5-5.0)
[2018-07-04 06:55] LABS: ABS Basophils 0 10^3/ul (0-0.2); ABS Eosinophils 0.2 10^3/ul (0-0.6); ABS Lymphocytes 0.8 10^3/ul (1.0-4.8); ABS Monocytes 0.5 10^3/ul (0-0.8); ABS Neutrophils 4.1 10^3/ul (1.5-7.7); ABS Nucleated RBC 0 10^3/ul; Eosinophil % 4.2 %; Large Platelets Present; Mean Platelet Volume 11.1 fL (7.4-10.4); Nucleated Red Blood Cells % 0.1; Platelet Count 115 10^3/ul (150-450); Red Cell Distribution Width 21 % (10.5-15)
[2018-07-04] MEDS: Insulin LISPRO* 1 UNITS UNIT SUBCUT SCH ×4 (07:38→22:20)
[2018-07-04] MEDS: Vitamin THERAPEUTIC TAB PO SCH (07:45)
[2018-07-04] MEDS: Ferrous Gluconate TAB* 324 MG TAB PO SCH ×2 (07:45→22:35)
[2018-07-04] MEDS: Losartan TAB* 25 MG PO SCH (07:45)
[2018-07-04] MEDS: Potassium Chlor TAB* 20 MEQ TAB.ER PO SCH ×2 (07:45→22:35)
[2018-07-04] MEDS: Atorvastatin* 10 MG TAB PO SCH (07:46)
[2018-07-04] MEDS: Omeprazole CAP (NF) 20 MG CAP.DR PO SCH ×2 (07:46→16:32)
[2018-07-04] MEDS: Nystatin TOP POWDER* 15 GM BTL TOPICAL SCH ×3 (07:47→22:38)
[2018-07-04] MEDS: Carvedilol TAB* 6.25 MG PO SCH ×2 (07:49→22:36)
[2018-07-04] MEDS: Insulin GLARGINE(*) 1 UNITS UNIT SUBCUT SCH ×2 (09:39→22:34)
--- NOTE | 2018-07-04 10:53 | PN ---
Subjective Date of Service: 07/04/18 Interval History: Had EGD yesterday, this morning no complaints, no more hematemesis. no bloody BM. No abdominal pain, did not participate with PT yesterday. Objective Active Medications: Acetaminophen (Tylenol Tab*) 650 mg PO Q4H PRN PRN Reason: FEVER/PAIN Albuterol (Ventolin Hfa Inhaler*) 1 puff INH Q4H PRN PRN Reason: SOB/WHEEZING Atorvastatin Calcium (Lipitor*) 10 mg PO DAILY [facility] Last Admin: 07/04/18 07:46 Dose: 10 mg Carvedilol (Coreg Tab*) 12.5 mg PO BID [facility] Last Admin: 07/04/18 07:49 Dose: 12.5 mg Dextrose (D50w Syringe 50 Ml*) 12.5 gm IV PUSH .FOR FS < 60 - SS PRN PRN Reason: FS < 60 Last Admin: 07/03/18 08:06 Dose: 12.5 gm Ferrous Gluconate (Fergon Tab*) 324 mg PO BID [facility] Last Admin: 07/04/18 07:45 Dose: 324 mg Insulin Glargine (Lantus(*)) 55 units SUBCUT DAILY [facility] Last Admin: 07/04/18 09:39 Dose: 55 unit Insulin Glargine (Lantus(*)) 30 units SUBCUT BEDTIME [facility] Last Admin: 07/03/18 21:20 Dose: 30 units Insulin Human Lispro (Humalog*) 0 units SUBCUT ACHS [facility]; Protocol Last Admin: 07/04/18 07:38 Dose: Not Given Levothyroxine Sodium (Synthroid Tab*) 25 mcg PO DAILY@0600 [facility] Last Admin: 07/04/18 05:55 Dose: 25 mcg Losartan Potassium (Cozaar Tab*) 50 mg PO DAILY [facility] Last Admin: 07/04/18 07:45 Dose: 50 mg Multivitamins (Theragran Tab*) 1 tab PO DAILY [facility] Last Admin: 07/04/18 07:45 Dose: 1 tab Nystatin (Nystatin Top Powder*) 1 applic TOPICAL TID [facility] Last Admin: 07/04/18 07:47 Dose: 1 applic Omeprazole (Prilosec Cap*) 20 mg PO BID [facility] Last Admin: 07/04/18 07:46 Dose: 20 mg Ondansetron HCl (Zofran Inj*) 4 mg IV Q4H PRN PRN Reason: NAUSEA Last Admin: 07/01/18 12:53 Dose: 4 mg Potassium Chloride (Klor Con Er Tab*) 20 meq PO BID [facility] Last Admin: 07/04/18 07:45 Dose: 20 meq Terazosin HCl (Hytrin Cap*) 10 mg PO BEDTIME [facility] Last Admin: 07/03/18 21:24 Dose: 10 mg Vital Signs - 8 hr 07/04/18 07/04/18 07/04/18 04:18 07:17 07:52 Temperature 97.5 F 98.1 F Pulse Rate 64 62 Respiratory 16 18 Rate Blood Pressure 159/63 155/57 160/66 (mmHg) O2 Sat by Pulse 100 100 Oximetry 07/04/18 08:00 Temperature Pulse Rate Respiratory 16 Rate Blood Pressure (mmHg) O2 Sat by Pulse Oximetry Oxygen Devices in Use Now: Nasal Cannula Appearance: Elderly female lying in bed, not in distress Eyes: PERRLA Ears/Nose/Mouth/Throat: Mucous Membranes Moist Respiratory: Clear to Auscultation Cardiovascular: RRR Abdominal: NL Sounds; No Tenderness; No Distention Extremities: No Edema Neurological: Alert and Oriented x 3 Result Diagrams: 07/04/18 06:09 07/04/18 06:09 Microbiology and Other Data: Microbiology 06/30/18 12:50 Nasal Screen MRSA (PCR) - Final Nasal Mrsa Not Detected Assess/Plan/Problems-Billing Assessment: - Patient Problems (1) UGI bleed Current Visit: Yes Status: Acute Code(s): K92.2 - GASTROINTESTINAL HEMORRHAGE, UNSPECIFIED SNOMED Code(s): 28417746 Comment: Hematemesis of black emesis. Had EGD done 06/30: showed grade 2-3 esphageal varices, large blood clot, could not identify source of bleeding due to large amount of blood in the system. EGD 07/03. 2 varices and AVM, status post banding of 1 of the varices. Received 1 Units Packed RBCs 06/30 Complex case with portal HTN, AVM's, polyps, multiple diagnostic procedures. off of octreotide now continue PPI. (2) HUERTA (nonalcoholic steatohepatitis) Current Visit: Yes Status: Acute Code(s): K75.81 - NONALCOHOLIC STEATOHEPATITIS (HUERTA) SNOMED Code(s): 985666933 Comment: By hx. Albumin 2.8 on 06/30/18, INR 1.09. (3) Non-ischemic cardiomyopathy Current Visit: Yes Status: Acute Code(s): I42.8 - OTHER CARDIOMYOPATHIES SNOMED Code(s): 40990881 Comment: In past LVEF 20 %, most recently 45-50%. Clean coronaries on prior cath's, last in 2008. Uses O2 at home with exertion. Continue carvedilol, losartan. coreg dose to 12.5 mg decreased for concern of low DBP, and HR. (4) DM2 (diabetes mellitus, type 2) Current Visit: No Status: Acute Comment: -Continue home Lantus (5) DVT prophylaxis Current Visit: No Status: Acute Code(s): TEP8744 - SNOMED Code(s): 424848879 Comment: - SCDs -Pharmacologic prophylaxis contraindicated due to GIB (6) Morbid obesity Current Visit: Yes Status: Acute Code(s): E66.01 - MORBID (SEVERE) OBESITY DUE TO EXCESS CALORIES SNOMED Code(s): 065007640 Comment: BMI 40.3 on 07/01/18.
[2018-07-04] MEDS: Terazosin CAP* 5 MG PO SCH (22:36)
[2018-07-05 06:08] LABS: ABS Basophils 0 10^3/ul (0-0.2); ABS Eosinophils 0.3 10^3/ul (0-0.6); ABS Lymphocytes 0.8 10^3/ul (1.0-4.8); ABS Monocytes 0.5 10^3/ul (0-0.8); ABS Neutrophils 4.3 10^3/ul (1.5-7.7); ABS Nucleated RBC 0 10^3/ul; Eosinophil % 4.4 %; Hematocrit 26 % (35-47); Hemoglobin 8.5 g/dl (12.0-16.0); Lymphocyte % 13.4 %; Mean Corpuscular HGB Conc 32 g/dl (31-36); Mean Corpuscular Hemoglobin 27 pg (27-31); Mean Corpuscular Volume 84 fL (80-97); Mean Platelet Volume 11.3 fL (7.4-10.4); Nucleated Red Blood Cells % 0.1; Platelet Count 115 10^3/ul (150-450); Red Blood Count 3.12 10^6/ul (4.00-5.40); Red Cell Distribution Width 21 % (10.5-15); White Blood Count 5.8 10^3/ul (3.5-10.8)
[2018-07-05] MEDS: Levothyroxine TAB* 25 MCG TAB PO SCH (06:21)
[2018-07-05] MEDS: Omeprazole CAP (NF) 20 MG CAP.DR PO SCH (07:41)
[2018-07-05] MEDS: Carvedilol TAB* 6.25 MG PO SCH (07:41)
[2018-07-05] MEDS: Losartan TAB* 25 MG PO SCH (07:41)
[2018-07-05] MEDS: Potassium Chlor TAB* 20 MEQ TAB.ER PO SCH (07:41)
[2018-07-05] MEDS: Vitamin THERAPEUTIC TAB PO SCH (07:41)
[2018-07-05] MEDS: Ferrous Gluconate TAB* 324 MG TAB PO SCH (07:42)
[2018-07-05] MEDS: Atorvastatin* 10 MG TAB PO SCH (07:42)
[2018-07-05] MEDS: Insulin LISPRO* 1 UNITS UNIT SUBCUT SCH (07:42)
[2018-07-05] MEDS: Nystatin TOP POWDER* 15 GM BTL TOPICAL SCH (07:45)
--- NOTE | 2018-07-05 08:53 | PN ---
Subjective Date of Service: 07/05/18 Interval History: Patient feel good. today had hypoglycemia, but patient states that at home she manages her blood sugar with the higher doses of insulin with no issues, no recent hypoglycemia, at home she eats differently than here she states. Objective Active Medications: Acetaminophen (Tylenol Tab*) 650 mg PO Q4H PRN PRN Reason: FEVER/PAIN Albuterol (Ventolin Hfa Inhaler*) 1 puff INH Q4H PRN PRN Reason: SOB/WHEEZING Atorvastatin Calcium (Lipitor*) 10 mg PO DAILY [facility] Last Admin: 07/05/18 07:42 Dose: 10 mg Carvedilol (Coreg Tab*) 12.5 mg PO BID [facility] Last Admin: 07/05/18 07:41 Dose: 12.5 mg Dextrose (D50w Syringe 50 Ml*) 12.5 gm IV PUSH .FOR FS < 60 - SS PRN PRN Reason: FS < 60 Last Admin: 07/03/18 08:06 Dose: 12.5 gm Ferrous Gluconate (Fergon Tab*) 324 mg PO BID [facility] Last Admin: 07/05/18 07:42 Dose: 324 mg Insulin Glargine (Lantus(*)) 30 units SUBCUT BEDTIME [facility] Last Admin: 07/04/18 22:34 Dose: 30 units Insulin Glargine (Lantus(*)) 40 units SUBCUT DAILY [facility] Insulin Human Lispro (Humalog*) 0 units SUBCUT ACHS [facility]; Protocol Last Admin: 07/05/18 07:42 Dose: Not Given Levothyroxine Sodium (Synthroid Tab*) 25 mcg PO DAILY@0600 [facility] Last Admin: 07/05/18 06:21 Dose: 25 mcg Losartan Potassium (Cozaar Tab*) 50 mg PO DAILY [facility] Last Admin: 07/05/18 07:41 Dose: 50 mg Multivitamins (Theragran Tab*) 1 tab PO DAILY [facility] Last Admin: 07/05/18 07:41 Dose: 1 tab Nystatin (Nystatin Top Powder*) 1 applic TOPICAL TID [facility] Last Admin: 07/05/18 07:45 Dose: 1 applic Omeprazole (Prilosec Cap*) 20 mg PO BID [facility] Last Admin: 07/05/18 07:41 Dose: 20 mg Ondansetron HCl (Zofran Inj*) 4 mg IV Q4H PRN PRN Reason: NAUSEA Last Admin: 07/01/18 12:53 Dose: 4 mg Potassium Chloride (Klor Con Er Tab*) 20 meq PO BID [facility] Last Admin: 07/05/18 07:41 Dose: 20 meq Terazosin HCl (Hytrin Cap*) 10 mg PO BEDTIME [facility] Last Admin: 07/04/18 22:36 Dose: 10 mg Vital Signs - 8 hr 07/05/18 07/05/18 07/05/18 03:47 07:55 07:56 Temperature 98.1 F Pulse Rate 66 Respiratory 16 16 16 Rate Blood Pressure 140/57 (mmHg) O2 Sat by Pulse 100 Oximetry Oxygen Devices in Use Now: Nasal Cannula Eyes: PERRLA Ears/Nose/Mouth/Throat: Mucous Membranes Moist Respiratory: Clear to Auscultation Cardiovascular: RRR Abdominal: NL Sounds; No Tenderness; No Distention Neurological: Alert and Oriented x 3 Result Diagrams: 07/05/18 05:35 07/04/18 06:09 Microbiology and Other Data: Microbiology 06/30/18 12:50 Nasal Screen MRSA (PCR) - Final Nasal Mrsa Not Detected Assess/Plan/Problems-Billing Assessment: - Patient Problems (1) UGI bleed Current Visit: Yes Status: Acute Code(s): K92.2 - GASTROINTESTINAL HEMORRHAGE, UNSPECIFIED SNOMED Code(s): 25021753 Comment: Hematemesis of black emesis. Had EGD done 06/30: showed grade 2-3 esphageal varices, large blood clot, could not identify source of bleeding due to large amount of blood in the system. EGD 07/03. 2 varices and AVM, status post banding of 1 of the varices. Received 1 Units Packed RBCs 06/30 Complex case with portal HTN, AVM's, polyps, multiple diagnostic procedures. off of octreotide now continue PPI. (2) HUERTA (nonalcoholic steatohepatitis) Current Visit: Yes Status: Acute Code(s): K75.81 - NONALCOHOLIC STEATOHEPATITIS (HUERTA) SNOMED Code(s): 865088854 Comment: By hx. Albumin 2.8 on 06/30/18, INR 1.09. (3) Non-ischemic cardiomyopathy Current Visit: Yes Status: Acute Code(s): I42.8 - OTHER CARDIOMYOPATHIES SNOMED Code(s): 84133329 Comment: In past LVEF 20 %, most recently 45-50%. Clean coronaries on prior cath's, last in 2008. Uses O2 at home with exertion. Continue carvedilol, losartan. coreg dose to 12.5 mg decreased for concern of low DBP, and HR. (4) DM2 (diabetes mellitus, type 2) Current Visit: No Status: Acute Comment: Had hypoglycemia, insulin was adjusted for today, but per patient at home she eats different takes 70 units AM , and 40 units PM without any hypoglycemia, she states she manages her blood sugar herself, checks fingersticks and if need be speaks with her PCP to adjust the dose (5) DVT prophylaxis Current Visit: No Status: Acute Code(s): HVY0412 - SNOMED Code(s): 648450140 Comment: - SCDs -Pharmacologic prophylaxis contraindicated due to GIB (6) Morbid obesity Current Visit: Yes Status: Acute Code(s): E66.01 - MORBID (SEVERE) OBESITY DUE TO EXCESS CALORIES SNOMED Code(s): 172897447 Comment: BMI 40.3 on 07/01/18. Status and Disposition: Plan for discharge today.
[2018-07-05] MEDS ORDERED: Insulin GLARGINE(*) 1 UNITS UNIT SUBCUT SCH (09:00)
[2018-07-05 11:03] VITALS: BP 149/62
--- NOTE | 2018-07-05 21:15 | DS ---
CC: Dr. Marcial; Dr. Brandon; Dr. Neena Moyer * DISCHARGE SUMMARY: DATE OF ADMISSION: 06/30/18 DATE OF DISCHARGE: 07/05/18 DICTATING PHYSICIAN: Dr. Stephanie Damian. REASON FOR ADMISSION: Black emesis. HOSPITAL COURSE: This is a 77-year-old female with past medical history of anemia with numerous ER visits; history of workup which included a capsule endoscopy, upper and lower endoscopy in May 2018; AVMs; history of cirrhosis in the setting of nonalcoholic steatohepatitis, portal hypertensive gastropathy. She presented to the emergency room with black emesis. Please Dr. Akbar's H and P for full details regarding the admission course. The patient was found to have on admission hemoglobin of 8.0. On admission, the patient was started on Protonix drip, the patient was also given 1 unit of packed RBC, subsequently customs entry clerk was called. The patient was admitted to the floor, serial H and H's were ordered. On 06/30/18, the day of admission, the patient was seen by the customs entry clerk, also underwent an EGD , which showed nonbleeding esophageal varices with a large fundic clot along with duodenal polyps and no etiology was identified for the bleeding. However, the patient was not having an active bleed at that time and there was copious amount of blood found in the stomach. Subsequently, the patient was started on octreotide drip and pantoprazole drip was also continued. The patient's hemoglobin remained stable thereafter and a repeat endoscopy was also done 07/03, which esophageal varices grade 3 and grade 1 with banding of the grade 3 esophageal varices. She was also found to have nonbleeding duodenal AVMs, thought to be unlikely the culprit of the recent blood. The course was complicated with hypoglycemia. Her insulin was adjusted in the hospital; however, the patient reports to me that she wants to go home on the regular insulin that she takes at home because her eating habits are different when she is at home versus in the hospital. She reported she has been on the home regimen 70 units in the morning and 40 units at night for several years now without having any episodes of hypoglycemia. On the day of admission, the patient's hemoglobin was 8.5, hematocrit of 26. PHYSICAL EXAMINATION: Please see my progress note for my physical examination. CONSULTATIONS: Consultation throughout the case included Gastroenterology, Dr. Mark Brandon. PROCEDURES: EGD x2. The patient was also given 1 unit of packed RBCs. DISCHARGE MEDICATIONS: Include: 1. Terazosin 10 mg at bedtime. 2. Bumetanide 2 mg twice daily. 3. Carvedilol 25 mg twice a day. 4. Ferrous gluconate 325 mg twice a day. 5. Levothyroxine 25 mcg daily. 6. Simvastatin 20 mg daily. 7. Potassium chloride 20 mEq twice a day. 8. Nystatin powder topically b.i.d. as needed. 9. Triamcinolone 1 application topically as needed. 10. Lantus 40 unit subcu at bedtime. 11. Lantus 70 units subcu in the morning. 12. Nitroglycerin 0.3 mg as needed. 13. Losartan 50 mg daily. 14. Omeprazole 20 mg twice a day. 15. Albuterol inhaler 1 puff every 4 hours as needed for shortness of breath. 16. Multivitamins 1 tablet daily. 17. Cyanocobalamin 1000 mcg sublingual daily. 18. Acetaminophen 325 mg every 6 hours as needed. There were no new home medications. These were patient's home medications. DISCHARGE INSTRUCTIONS: The patient to follow diabetic diet. The patient to follow up with the primary care doctor within a week. The patient to follow up with Dr. Marcial, customs entry clerk, as scheduled. The patient to return to the emergency room for dark colored stool, blood in stools, vomiting blood, abdominal pain or if any new symptoms occur. [id number]/[facility] #: [id number] MTDD
== END 2018-07-05 12:15 | disposition home or self-care (01) | DRG 369 ==
LOC: ED 07:49 → ICU 11:08 → MED 07-01 15:40
PROVIDERS: ADMIT Internal Medicine; ATTEND Internal Medicine
PROC: 0DJ08ZZ Inspection of Upper Intestinal Tract, Via Natural or Artificial Opening Endoscopic (ICD-10-PCS; principal; 2018-06-30)
PROC: 30233N1 Transfusion of Nonautologous Red Blood Cells into Peripheral Vein, Percutaneous Approach (ICD-10-PCS; 2018-06-30)
PROC: 06L38CZ Occlusion of Esophageal Vein with Extraluminal Device, Via Natural or Artificial Opening Endoscopic (ICD-10-PCS; 2018-07-03)
DX: I85.01 Esophageal varices with bleeding (principal); I13.0 Hypertensive heart and chronic kidney disease with heart failure and stage 1 through stage 4 chronic kidney disease, or unspecified chronic kidney disease; K76.6 Portal hypertension; I42.8 Other cardiomyopathies; Z68.41 Body mass index [BMI] 40.0-44.9, adult; I50.9 Heart failure, unspecified; I25.10 Atherosclerotic heart disease of native coronary artery without angina pectoris; K21.9 Gastro-esophageal reflux disease without esophagitis; K74.60 Unspecified cirrhosis of liver; Z96.1 Presence of intraocular lens; Z98.42 Cataract extraction status, left eye; Z98.41 Cataract extraction status, right eye; Z90.710 Acquired absence of both cervix and uterus; Z82.49 Family history of ischemic heart disease and other diseases of the circulatory system; Z87.891 Personal history of nicotine dependence; Z88.8 Allergy status to other drugs, medicaments and biological substances; G47.30 Sleep apnea, unspecified; J43.9 Emphysema, unspecified; E11.65 Type 2 diabetes mellitus with hyperglycemia; N18.3 Chronic kidney disease, stage 3 (moderate); E03.9 Hypothyroidism, unspecified; K75.81 Nonalcoholic steatohepatitis (NASH); E78.5 Hyperlipidemia, unspecified; M19.90 Unspecified osteoarthritis, unspecified site; E11.22 Type 2 diabetes mellitus with diabetic chronic kidney disease; K55.20 Angiodysplasia of colon without hemorrhage; E11.40 Type 2 diabetes mellitus with diabetic neuropathy, unspecified; M48.00 Spinal stenosis, site unspecified; K31.89 Other diseases of stomach and duodenum; E66.9 Obesity, unspecified; Z66 Do not resuscitate; D64.9 Anemia, unspecified; K31.7 Polyp of stomach and duodenum; E66.01 Morbid (severe) obesity due to excess calories; Z79.4 Long term (current) use of insulin; Z83.3 Family history of diabetes mellitus; E11.649 Type 2 diabetes mellitus with hypoglycemia without coma
CPT/HCPCS: 36415; 71045; 80048; 80053; 82947; 83605; 84484; 85014; 85018; 85025; 85610; 85730; 86850; 86900; 86901; 86922; 87641; 93005; 99156; 99157; 99285; A9270-GY; J0780; J1815; J2250; J2354; J2405; J3010; P9040

== ENCOUNTER 2018-11-13 22:30 | Inpatient (IN) | payer MEDICARE, OTHER ==
[2018-11-13] MEDS ORDERED: Ondansetron INJ* 2 MG/ML VIAL IV ONE (22:46)
[2018-11-13] MEDS ORDERED: NS 0.9% 1000 ML** 1,000 ML IV ONE (22:46)
--- NOTE | 2018-11-13 22:48 | ED ---
Complex/Multi-Sys Presentation - HPI Summary HPI Summary: A 78 y/o F presents to ED with worsening abd bloat onset today. She states not feeling well for the past days. Associated sx: elevated blood glucose, SOB, nausea, urinary frequency. Denies CP, dysuria. She has had fluid on her abd previously. She is also in Stage 3 kidney failure. Past abd surgical hx: umbilical hernia. - History Of Current Complaint Chief Complaint: EDWeakness Time Seen by Provider: 11/13/18 22:41 Hx Obtained From: Patient Onset/Duration: Lasting Hours, Still Present Timing: Constant Severity Currently: Moderate Severity Initially: Severe Associated Signs And Symptoms: Positive: SOB, Nausea, Other - pos: urinary freq ; elevated blood sugar. Negative: Chest Pain, Dysuria - Allergies/Home Medications Allergies/Adverse Reactions: Allergies Allergy/AdvReac Type Severity Reaction Status Date / Time captopril Allergy Severe Hives Verified 11/07/18 10:17 PMH/Surg Hx/FS Hx/Imm Hx Previously Healthy: No Endocrine/Hematology History: Reports: Hx Blood Transfusions, Hx Diabetes, Hx Anemia - chronic iron infusions Cardiovascular History: Reports: Hx Angina, Hx Congestive Heart Failure, Hx Coronary Artery Disease, Hx Hypercholesterolemia, Hx Hypertension, Other Cardiovascular Problems/Disorders - cardiomyopathy Denies: Hx Myocardial Infarction, Hx Pacemaker/ICD Respiratory History: Reports: Hx Asthma, Hx Chronic Obstructive Pulmonary Disease (COPD), Hx Sleep Apnea, Other Respiratory Problems/Disorders - emphysema GI History: Reports: Hx Cirrhosis, Hx Gastroesophageal Reflux Disease, Hx Gastrointestinal Bleed, Hx Hiatal Hernia - s/p repair, Other GI Disorders - HELICOBACTER INFECTION History: Reports: Hx Chronic Renal Failure - Stage 3, Hx Renal Disease, Other Problems/Disorders - CKD stage 3 Musculoskeletal History: Reports: Hx Arthritis, Hx Back Problems, Other Musculoskeletal History - spinal stenosis Sensory History: Reports: Hx Cataracts - surgery with implants bilat eyes 96, Hx Contacts or Glasses Denies: Hx Deafness, Hx Hearing Aid Opthamlomology History: Reports: Hx Cataracts - surgery with implants bilat eyes 96, Hx Contacts or Glasses Neurological History: Reports: Other Neuro Impairments/Disorders - vertigo Psychiatric History: Reports: Other Psychiatric Issues/Disorders - PT REPORTS "STRESS" AND SAYS HER MD GAVE HER A MED FOR IT, UNSURE WHAT Denies: Hx Panic Disorder - Surgical History Surgery Procedure, Year, and Place: HERNIA. HYSTERECTOMY. CATERACTS. CARPAL TUNNEL. CYSTS REMOVED FROM BILATERAL ARMPITS. RTC RT. LT FOOT SURGERY - Immunization History Date of Tetanus Vaccine: > 10 yers Date of Influenza Vaccine: [id number] Infectious Disease History: No Infectious Disease History: Denies: Hx of Known/Suspected MRSA, Traveled Outside the [place] in Last 30 Days - Family History Known Family History: Positive: Other - Yes - CHF (Mother) - Social History Occupation: Retired Lives: With Family Alcohol Use: None Hx Substance Use: No Substance Use Type: Reports: None Hx Tobacco Use: Yes Smoking Status (MU): Former Smoker Have You Smoked in the Last Year: No Review of Systems Negative: Chest Pain Positive: Shortness Of Breath Positive: Nausea, Other - pos: abd bloating, elevated blood sugar Positive: frequency - urinary. Negative: dysuria All Other Systems Reviewed And Are Negative: Yes Physical Exam - Summary Physical Exam Summary: Appearance: well appearing, no pain distress Skin: warm, dry, reflects adequate perfusion, eczema on middle of thoracic back Head/face: normal Eyes: EOMI, GENNY ENT: mucous membranes moist Neck: supple, non-tender Respiratory: CTA, breath sounds present Cardiovascular: RRR, pulses symmetrical, systolic murmur Abdomen: diffusely extended, tympanitic, non-tender, soft Bowel Sounds: present Musculoskeletal: strength/ROM intact, 2-3+ pitting edema bilaterally. Neuro: normal, sensory motor intact, A&Ox3 Triage Information Reviewed: Yes Vital Signs On Initial Exam: Initial Vitals Temp Pulse Resp BP Pulse Ox 99.3 F 98 18 161/68 96 11/13/18 22:32 11/13/18 22:32 11/13/18 22:32 11/13/18 22:32 11/13/18 22:32 Vital Signs Reviewed: Yes Diagnostics - Vital Signs Vital Signs Temp Pulse Resp BP Pulse Ox 11/13/18 22:32 99.3 F 98 18 161/68 96 - Laboratory Result Diagrams: 11/13/18 22:50 11/14/18 00:04 Lab Statement: Any lab studies that have been ordered have been reviewed, and results considered in the medical decision making process. - Radiology CXR Radiology Interpretation Completed By: ED Physician Summary of Radiographic Findings: No acute pulmonary disease. - CT ABD/PEL CT CT Interpretation Completed By: Radiologist Summary of CT Findings: IMPRESSION: 1. Acute pancreatitis. The pancreatic head is enlarged with peripancreatic inflammatory changes. No pancreatic calcification or distention of the pancreatic duct. Associated inflammatory changes in the right and left anterior pararenal fascia. Fluid is seen over the right dome of the liver. No evidence of bowel obstruction. No walled off fluid collection. Findings consistent with acute pancreatitis. 2. Moderate right- sided pleural effusion with associated atelectasis. This was seen on prior CT scan of 09/07/2018. 3. Bilateral adrenal nodules. The largest nodule is in the left adrenal gland and measures 2.2 cm in length and has a density of 11 Hounsfield units. This may represent an adenoma. This is seen on the prior CT study of 09/07/2018 and has not significantly changed. ED provider has reviewed this report. - EKG 2253 Cardiac Rate: NL - 93 bpm EKG Rhythm: Sinus Rhythm ST Segment: Non-Specific Summary of EKG Findings: Nml axis, poor R-wave progression, long QTc. Complex Multi-Symp Course/Dx Course Of Treatment: Nurses' notes reviewed. Diabetic with rising blood sugars and increasing abdominal distention. Minimal tenderness and nausea. Her blood sugars are in the 800s and CT scan shows evidence for pancreatitis. Her lipase is minimally elevated. She still does have her gallbladder and is nondrinker. She will have a gallbladder ultrasound in the morning when available. She is admitted to the hospitalist service. No insulin drip was started on her given no acidosis. - Diagnoses Differential Diagnoses/HQI/PQRI: Metabolic Abnormality, Sepsis, Urinary Tract Infection, Other - Small bowel obstruction, spontaneous bacterial peritonitis Provider Diagnoses: Acute pancreatitis, Uncontrolled type 2 diabetes mellitus with hyperosmolar nonketotic hyperglycemia, Stage III chronic kidney disease - Physician Notifications Discussed Care Of Patient With: Cedrick Garay - radiology Time Discussed With Above Provider: 00:35 Instructed by Provider To: Other - Recommends lipase test. Consulted again at 0100: Discussing lipase results; acute pancreatitis. - Critical Care Time Critical Care Time: 30-74 min - CCT is EXCLUSIVE of separately billable procedures. Discharge - Sign-Out/Discharge Documenting (check all that apply): Patient Departure - ADMIT Patient Received Moderate/Deep Sedation with Procedure: No - Discharge Plan Condition: Fair Disposition: ADMITTED TO [facility] - Billing Disposition and Condition Condition: FAIR Disposition: Admitted to [facility] - Attestation Statements Document Initiated by Vitaliy: Yes Documenting Scribe: Danielle Mandel Provider For Whom Vitaily is Documenting (Include Credential): Dr. Jose Lopez MD Scribe Attestation: Danielle Benitez, scribed for Dr. Jose Lopez MD on 11/14/18 at 0201. Scribe Documentation Reviewed: Yes Provider Attestation: The documentation as recorded by the Danielle puri accurately reflects the service I personally performed and the decisions made by me, Dr. Jose Lopez MD Status of Scribhomar Document: Viewed Consult Consult: 01:08: Consult with Dr. Camacho, hospitalist Will admit patient.
[2018-11-13 23:01] LABS: ABS Basophils 0.1 10^3/ul (0-0.2); ABS Eosinophils 0.1 10^3/ul (0-0.6); ABS Lymphocytes 0.8 10^3/ul (1.0-4.8); ABS Monocytes 0.5 10^3/ul (0-0.8); ABS Neutrophils 4.6 10^3/ul (1.5-7.7); Eosinophil % 1.6 %; Hematocrit 27 % (35-47); Hemoglobin 8.3 g/dL (12.0-16.0); Lymphocyte % 12.9 %; Mean Corpuscular HGB Conc 31 g/dL (31-36); Mean Corpuscular Hemoglobin 25 pg (27-31); Mean Corpuscular Volume 83 fL (80-97); Mean Platelet Volume 10.3 fL (7.4-10.4); Nucleated Red Blood Cells % 0.3; Platelet Count 117 10^3/uL (150-450); Red Blood Count 3.26 10^6 /uL (3.70-4.87); Red Cell Distribution Width 19 % (10.5-15)
[2018-11-13 23:08] LABS: INR 1.06 (0.82-1.09)
[2018-11-13 23:24] LABS: ALT 17 U/L (7-52); Albumin 3.3 g/dL (3.2-5.2); Albumin/Globulin Ratio 0.9 (1-3); Alkaline Phosphatase 218 U/L (34-104); BUN/Creatinine Ratio 17.6 (8-20); Blood Urea Nitrogen 23 mg/dL (6-24); CO2 Carbon Dioxide 26 mmol/L (22-32); Calcium 9.1 mg/dL (8.6-10.3); Chloride 94 mmol/L (101-111); EGFR African American 47.6 (>60); EGFR Non-African American 39.4 (>60); Globulin 3.7 g/dL (2-4); Sodium 131 mmol/L (135-145)
[2018-11-13 23:26] LABS: Troponin I 0.02 ng/mL (<0.04)
[2018-11-13 23:51] LABS: Anion Gap 11 mmol/L (2-11); Glucose 829 mg/dL (70-100)
[2018-11-14 00:28] LABS: Potassium Redraw 4.8 mmol/L (3.5-5.0)
[2018-11-14] MEDS ORDERED: NS 0.9% 1000 ML** 1,000 ML IV ONE (01:16)
[2018-11-14] MEDS ORDERED: Insulin IVPB 100 units/100 ml 100 UNITS/100 ML UNIT IVPB ONE (01:35)
[2018-11-14] MEDS ORDERED: Ondansetron INJ* 2 MG/ML VIAL IV PRN (01:37)
[2018-11-14] MEDS ORDERED: Nystatin TOP POWDER* 15 GM BTL TOPICAL PRN (01:43)
[2018-11-14] MEDS ORDERED: Triamcinolone 0.025% OINT * 15 GM TUBE TOPICAL PRN (01:43)
[2018-11-14] MEDS ORDERED: Albuterol HFA INHALER* 8 gm MDI INH PRN (01:43)
[2018-11-14] MEDS ORDERED: Calcium Carbonate CHEW TAB* 500 MG (TUMS) PO PRN (01:43)
[2018-11-14 02:26] LABS: Urine Appearance Clear; Urine Bilirubin Negative (Negative); Urine Blood Negative (Negative); Urine Color Straw; Urine Glucose 3+(>=500 mg/dL) (Negative); Urine Ketones Trace (Negative); Urine Nitrite Negative (Negative); Urine Protein Negative (Negative); Urine Specific Gravity 1.023 (1.010-1.030); Urine Urobilinogen Negative (Negative)
[2018-11-14] MEDS ORDERED: Metoprolol Tartrate IV* 1 MG/ML 5 ML VIAL IV PRN (02:46)
[2018-11-14] MEDS ORDERED: Insulin Drip - @ 0.1 unit/kg/hr IVPB SCH (03:00)
[2018-11-14] MEDS ORDERED: NS 0.9% 1000 ML** 1,000 ML IV SCH (03:00)
[2018-11-14 03:15] LABS: Triglycerides 340 mg/dL
[2018-11-14] MEDS: Carvedilol TAB* 25 MG PO SCH ×3 (03:31→20:37)
[2018-11-14 03:41] LABS: Hematocrit 26 % (35-47); Hemoglobin 7.8 g/dL (12.0-16.0)
[2018-11-14 03:53] LABS: BUN/Creatinine Ratio 17.5 (8-20); Calcium 8.9 mg/dL (8.6-10.3); EGFR African American 52.7 (>60); EGFR Non-African American 43.6 (>60); Magnesium 1.9 mg/dL (1.9-2.7); Potassium 4.6 mmol/L (3.5-5.0)
--- NOTE | 2018-11-14 05:37 | HP ---
CC: Neena Moyer MD; Samir Marcial MD * HISTORY AND PHYSICAL: DATE OF ADMISSION: 11/14/18 TIME OF EVALUATION: 0100. PRIMARY CARE PHYSICIAN: Neena Moyer MD. SUPERVISOR ROUGH END: Samir Marcial MD. CHIEF COMPLAINT: Nausea and abdominal distention. HISTORY OF PRESENT ILLNESS: This is a 78-year-old female with a past medical history of HUERTA, diabetes, and morbid obesity, who presented to the emergency room not feeling well for the past few days stating she has been nauseous with abdominal distention. She also has been complaining of black soft stools about 2 to 3 times per day for the past few days. She has been lightheaded, short of breath, and unable to eat very much. She states she did not take her medications at all today including her insulin because she was feeling so lousy she was not sure what to take. She was just seen by Dr. Marcial who states she had an EGD done last 11/06/18, and she states at that time everything was unremarkable. She recently doubled her Bumex medication to 2 mg twice a day and cut back on her spironolactone because of her kidneys about 3 to 4 weeks ago. She states her abdominal pain is all over, and she feels very bloated and her belly is a lot bigger than it normally is. She is also coughing more with a productive sputum. She states for the past 3 to 4 days her sugars have been very high measuring in the 300s. No fevers, but she states she always feels chills. She has not fallen. No loss of consciousness, but as mentioned she has some lightheadedness. Otherwise, remaining review of systems is negative. In the emergency room, the patient had labs, imaging. She was found to have pancreatitis and glucose of 829. In the emergency room, she was given a liter of fluid, 4 mg of Zofran, and referred to the hospitalist service for further evaluation. PAST MEDICAL HISTORY: 1. History of HUERTA, followed by Dr. Marcial. 2. History of duodenal AVMs. 3. History of esophageal varices. 4. History of portal hypertensive gastropathy. 5. History of peptic ulcer disease. 6. History of CHF, cardiomyopathy. 7. Hypertension. 8. COPD, on oxygen as needed. 9. Diabetes, on insulin. 10. History of CKD. 11. History of iron-deficiency anemia. 12. History of spinal stenosis. 13. Hyperlipidemia. 14. Hypothyroidism. 15. Diabetic neuropathy. 16. History of arthritis. MEDICATIONS: 1. Terazosin 10 mg p.o. at bedtime. 2. Carvedilol 25 mg p.o. b.i.d. 3. Bumex 2 mg p.o. b.i.d. 4. Spironolactone 50 mg in the morning, 25 mg in the evening. 5. Ferrous sulfate 324 mg p.o. b.i.d. 6. Synthroid 25 mcg p.o. b.i.d. 7. Potassium chloride 20 mEq p.o. b.i.d. 8. Lantus 70 units in the morning, 40 units in the evening. 9. Losartan 50 mg daily. 10. Prilosec 20 mg p.o. b.i.d. 11. Oxygen 2 L as needed. 12. Nystatin b.i.d. as needed. 13. Triamcinolone as needed. 14. Albuterol 2 puffs every 4 hours as needed. 15. [place] as needed. 16. Vitamin B12 1000 units daily. 17. Multivitamin daily. 18. Nitro sublingual as needed. ALLERGIES: CAPTOPRIL, DILTIAZEM. FAMILY HISTORY: Reviewed and noncontributory. SOCIAL HISTORY: The patient lives at home with her who is in a wheelchair. Her healthcare proxy is her daughter, Dorinda. No alcohol use. She quit smoking in 2001. At that time, she was 2-3 packs per day for many years. She ambulates normally with a cane. No recent falls. Her code status is full code. REVIEW OF SYSTEMS: A 14-point review of systems as mentioned in the HPI, otherwise negative. PHYSICAL EXAMINATION GENERAL: No acute distress. Resting comfortably with her at the bedside. VITAL SIGNS: T-max 99.3, pulse rate 94, respiratory rate 24, oxygen saturation is 94% on room air, blood pressure 161/68. HEENT: Head: Normocephalic. Pupils are equal and reactive. Anicteric. Oropharynx: Mucous membranes are dry. NECK: Supple. No lymphadenopathy. RESPIRATORY: Diminished breath sounds. No wheezing, rhonchi, or rales. CARDIAC: Regular rate and rhythm. Systolic murmur present, most probably at the left sternal base. ABDOMEN: Positive bowel sounds. Moderate distention. Mildly diffuse tenderness. No rebound or guarding. EXTREMITIES: Chronic lower extremity lymphedema. +1 DPs. NEUROLOGIC: Alert and oriented x3. No gross focal neurologic deficits. LABORATORY DATA AND IMAGING STUDIES: White count is 6, hemoglobin 8.3, hematocrit 27, platelets 117. INR is 1.06. TSH is 7.39. Sodium 131, potassium 4.8, chloride 94, bicarb 26. BUN 23, creatinine 1.31. Glucose is 829. Lactic acid is 1.9. Alk phos is 218. AST is 21, ALT is 17. Ammonia is 76. Troponin is 0.02. Lipase is 137. Radiographic data: Chest x-ray: My read is unremarkable. Abdominal and pelvis CT: Acute pancreatitis. Pancreatic head is enlarged with peripancreatic inflammatory changes. No pancreatic calcification or distention of the pancreatic duct. Associated inflammatory changes in the right and left anterior perirenal fascia. Fluid is seen over the right dome of the liver. No evidence of bowel obstruction. No walled-off fluid collection. Findings consistent with acute pancreatitis. Moderate right-sided pleural effusion with associated atelectasis. This was seen on prior CT scan on 09/07/18. Bilateral adrenal nodules, the largest nodule is at left adrenal gland and measures 2.2 cm in length and has a density of 11 Hounsfield units, not significantly changed since the prior study. ASSESSMENT: This is a 78-year-old female with a past medical history of nonalcoholic steatohepatitis, diabetes, and chronic obstructive pulmonary disease, who presents to the emergency room with nausea and abdominal distention , found to be hyperglycemic and have pancreatitis. 1. Nausea with abdominal distention. Assessment: The patient's presentation is atypical for pancreatitis with the abdominal distention. She also is having black loose stools. Her CAT scan is consistent with pancreatitis. Plan: We will continue on fluids. We will have to be careful with her history of cardiomyopathy. We will check an ultrasound to evaluate for gallbladder disease , gallstone. Check her triglycerides. We will recommend followup with Dr. Marcial as he recently saw her and did scope on her last week, as well as follows her closely for her nonalcoholic steatohepatitis. We will continue fluids. We will keep her n.p.o. for her hyperosmolar hyperglycemic state. Once that is stabilized, she will be able to advance her diet to clear liquids. 2. Hyperosmolar hyperglycemic state. Assessment: The patient with a sugar of over 800. She did not have an anion gap. Her pH is normal. Waiting for a UA. We will admit her to the ICU for an insulin drip and IV fluids and monitor blood glucose q.1 hour, BMP q.4 hours, and correct her electrolytes accordingly. We will check a hemoglobin A1c as well. She will likely need short-acting insulin in addition to her Lantus regimen. Consider endocrinology consultation. She may have an underlying urinary tract infection as well, though she has no white count. She does have urinary frequency which can go along with her hyperosmolar hyperglycemic state. We will follow up her UA results. Also appears to have upper respiratory tract infection illness. Chest x-ray is unremarkable. Recommend followup with official read. We will check a sputum culture which also could be driving her hyperglycemia. 3. Chronic medical problems. History of nonalcoholic steatohepatitis. We will continue her on her Bumex, and be aggressive with fluids for her pancreatitis. We will lower her spironolactone to 50 mg daily and hold her evening dose. Continue her on her Carvedilol. 4. Hypothyroidism. Continue on her Synthroid. 5. History of anemia. Her H and H may be hemoconcentrated. We will repeat her H and H when we repeat her BMP. Continue on her iron supplementation twice a day. 6. Hypertension. I am going to hold her losartan for now with a mild bump in her creatinine and continue her on her carvedilol, spironolactone, and Bumex. 7. History of peptic ulcer disease. Continue Prilosec 20 mg p.o. b.i.d. 8. FEN: The patient is getting IV fluids and insulin drip and n.p.o. with ice chips. We will advance once her sugars are under better control. 9. DVT prophylaxis: The patient scores high risk with her black stools and anemia. We will order SCDs. 10. Code status: Full code. PATIENT TIME: Greater than 50 minutes was spent doing the history and physical , more than half the time spent in direct patient contact and critical care time. [id number]/[facility] #: [id number] [employer]BIND
[2018-11-14] MEDS ORDERED: Acetaminophen TAB* 325 MG PO PRN (05:44)
[2018-11-14] MEDS: Levothyroxine TAB* 25 MCG TAB PO SCH ×2 (06:09→18:35)
[2018-11-14 06:18] LABS: ABS Eosinophils 0.1 10^3/ul (0-0.6); ABS Lymphocytes 0.7 10^3/ul (1.0-4.8); ABS Monocytes 0.4 10^3/ul (0-0.8); ABS Neutrophils 3.8 10^3/ul (1.5-7.7); Eosinophil % 2.8 %; Hematocrit 23 % (35-47); Lymphocyte % 13.2 %; Mean Corpuscular HGB Conc 31 g/dL (31-36); Mean Corpuscular Hemoglobin 25 pg (27-31); Mean Corpuscular Volume 82 fL (80-97); Mean Platelet Volume 10.6 fL (7.4-10.4); Nucleated Red Blood Cells % 0.1; Platelet Count 129 10^3/uL (150-450); Red Blood Count 2.76 10^6 /uL (3.70-4.87); Red Cell Distribution Width 19 % (10.5-15)
[2018-11-14] MEDS ORDERED: Analgesic BALM* 114 GM TOPICAL PRN (06:33)
[2018-11-14 06:44] LABS: BUN/Creatinine Ratio 17.5 (8-20); Blood Urea Nitrogen 20 mg/dL (6-24); CO2 Carbon Dioxide 27 mmol/L (22-32); Calcium 8.2 mg/dL (8.6-10.3); Chloride 104 mmol/L (101-111); EGFR African American 55.9 (>60); EGFR Non-African American 46.2 (>60); Glucose 424 mg/dL (70-100); Sodium 138 mmol/L (135-145)
[2018-11-14] MEDS ORDERED: Simethicone TAB* 80 MG TAB.CHEW PO PRN (06:46)
[2018-11-14 06:51] LABS: Anion Gap 7 mmol/L (2-11)
[2018-11-14 07:42] LABS: Potassium Redraw 3.5 mmol/L (3.5-5.0)
[2018-11-14 08:44] LABS: Magnesium 1.8 mg/dL (1.9-2.7)
[2018-11-14] MEDS ORDERED: Levothyroxine TAB* 25 MCG TAB PO SCH (09:00)
[2018-11-14] MEDS ORDERED: Ferrous Sulfate TAB* 325 MG PO SCH (09:00)
[2018-11-14] MEDS ORDERED: Morphine 4 MG/ML VIAL (1 ml) 4 MG/ML VIAL IV PRN (09:31)
[2018-11-14] MEDS ORDERED: Magnesium Sulfate 2 GM IV* 2 GM/50 ML BAG IVPB ONE (09:32)
[2018-11-14] MEDS: Cyanocobalamin TAB* 500 MCG PO SCH (09:55)
[2018-11-14] MEDS: Ferrous Sulfate TAB* 325 MG PO SCH ×2 (10:00→20:38)
[2018-11-14] MEDS: Atorvastatin* 10 MG TAB PO SCH (10:00)
[2018-11-14] MEDS: Pantoprazole TAB * 40 MG TAB PO SCH ×2 (10:00→20:38)
[2018-11-14] MEDS: Spironolactone TAB* 25 MG PO SCH (10:00)
[2018-11-14] MEDS: Bumetanide TAB* 2 MG PO SCH ×2 (10:00→20:37)
[2018-11-14] MEDS: Multivitamins/Minerals TAB PO SCH (10:00)
[2018-11-14] MEDS ORDERED: Insulin LISPRO* 1 UNITS UNIT SUBCUT SCH (11:00)
--- NOTE | 2018-11-14 11:54 | PN ---
Date of Service: 11/14/18 Critical Care Services: Elderly female admitted from ED with severe hyperglycemia, GI blood loss, and edematous pancreatitis. Initially placed on an insulin infusion but this has been d/c'd after blood glucose dropped below 150 mg/dL. Patient also has chronic GI blood loss from "portal hypertensive gastropathy" (has cirrhosis from a fatty liver) and was endoscoped on 11/07 with old blood noted in stomach but no active bleeding sites - Hb on admission was 7.8 and patient received one unit packed RBCs - repeat Hb pending.. Vital Signs: Temp Pulse Resp BP SpO2 FiO2 99.5 F 69 15 118/50 96 Physical Exam: Gen:Alert, orientd, appears comfortable Lungs: Clear Abdomen: Soft, nontender. BS present Extremities:No cyanosis or edema. Fluid Balance (Past 24 Hours): 11/14/18 06:59 Output Total 1050 Balance -604 Weight 213 lb Intake: IV Fluids 419 NS 419 Medicated IV 27 Insulin 27 Output: Cresp[place] 1050 Labs: 11/13/18 11/13/18 11/13/18 22:37 22:50 22:50 WBC 6.0 RBC 3.26 L Hgb 8.3 L Hct 27 L MCV 83 MCH 25 L MCHC 31 RDW 19 H Plt Count 117 L VBG pH VBG pCO2 VBG pO2 VBG HCO3 VBG O2 Saturation VBG Base Excess Sodium 131 L Potassium TNP Chloride 94 L Carbon Dioxide 26 Anion Gap 11 BUN 23 Creatinine 1.31 H Est GFR ( Amer) 47.6 Est GFR (Non-Af Amer) 39.4 BUN/Creatinine Ratio 17.6 Glucose 829 H* POC Glucose (mg/dL) > 444 H* Glucose Meter Confirm Hemoglobin A1c Lactic Acid Calcium 9.1 Magnesium Total Bilirubin 0.50 AST TNP ALT 17 Alkaline Phosphatase 218 H Ammonia Troponin I 0.02 Total Protein 7.0 Albumin 3.3 Globulin 3.7 Albumin/Globulin Ratio 0.9 L Triglycerides 340 Lipase 137 Urine Color Urine Appearance Urine pH Ur Specific [place] Urine Protein Urine Ketones Urine Blood Urine Nitrate Urine Bilirubin Urine Urobilinogen Ur Leukocyte Esterase Urine Glucose Blood Type Antibody Screen Crossmatch 11/13/18 11/13/18 11/13/18 22:50 22:50 22:50 WBC RBC Hgb Hct MCV MCH MCHC RDW Plt Count MPV Neut % (Auto) Lymph % (Auto) [place] % (Auto) Eos % (Auto) Baso % (Auto) Absolute Neuts (auto) Absolute Lymphs (auto) Absolute Monos (auto) Absolute Eos (auto) Absolute Basos (auto) Absolute Nucleated RBC Nucleated RBC % INR (Anticoag Therapy) 1.06 VBG pH VBG pCO2 VBG pO2 VBG HCO3 VBG O2 Saturation VBG Base Excess Sodium Potassium Chloride Carbon Dioxide Anion Gap BUN Creatinine Est GFR ( Amer) Est GFR (Non-Af Amer) BUN/Creatinine Ratio Glucose POC Glucose (mg/dL) Glucose Meter Confirm Hemoglobin A1c Lactic Acid 1.9 Calcium Magnesium Total Bilirubin AST ALT Alkaline Phosphatase Ammonia 76 H Troponin I Total Protein Albumin Globulin Albumin/Globulin Ratio Triglycerides Lipase Urine Color Urine Appearance Urine pH Ur Specific [place] Urine Protein Urine Ketones Urine Blood Urine Nitrate Urine Bilirubin Urine Urobilinogen Ur Leukocyte Esterase Urine Glucose Blood Type Antibody Screen Crossmatch 11/13/18 11/13/18 11/14/18 22:50 23:23 00:04 WBC RBC Hgb Hct MCV MCH MCHC RDW Plt Count MPV Neut % (Auto) Lymph % (Auto) Living[place] % (Auto) Eos % (Auto) Baso % (Auto) Absolute Neuts (auto) Absolute Lymphs (auto) Absolute Monos (auto) Absolute Eos (auto) Absolute Basos (auto) Absolute Nucleated RBC Nucleated RBC % INR (Anticoag Therapy) VBG pH 7.39 VBG pCO2 47 VBG pO2 < 38.0 VBG HCO3 25.9 VBG O2 Saturation 55.1 L VBG Base Excess 2.8 Sodium Potassium 4.8 Chloride Carbon Dioxide Anion Gap BUN Creatinine Est GFR ( Amer) Est GFR (Non-Af Amer) BUN/Creatinine Ratio Glucose POC Glucose (mg/dL) Glucose Meter Confirm Hemoglobin A1c 11.9 H Lactic Acid Calcium Magnesium Total Bilirubin AST 21 ALT Alkaline Phosphatase Ammonia Troponin I Total Protein Albumin Globulin Albumin/Globulin Ratio Triglycerides Lipase Urine Color Urine Appearance Urine pH Ur Specific [place] Urine Protein Urine Ketones Urine Blood Urine Nitrate Urine Bilirubin Urine Urobilinogen Ur Leukocyte Esterase Urine Glucose Blood Type Antibody Screen Crossmatch 11/14/18 11/14/18 11/14/18 02:05 02:54 03:28 WBC RBC Hgb Hct MCV MCH MCHC RDW Plt Count MPV Neut % (Auto) Lymph % (Auto) Living[place] % (Auto) Eos % (Auto) Baso % (Auto) Absolute Neuts (auto) Absolute Lymphs (auto) Absolute Monos (auto) Absolute Eos (auto) Absolute Basos (auto) Absolute Nucleated RBC Nucleated RBC % INR (Anticoag Therapy) VBG pH VBG pCO2 VBG pO2 VBG HCO3 VBG O2 Saturation VBG Base Excess Sodium 133 L Potassium 4.6 Chloride 99 L Carbon Dioxide 24 Anion Gap 10 BUN 21 Creatinine 1.20 H Est GFR ( Amer) 52.7 Est GFR (Non-Af Amer) 43.6 BUN/Creatinine Ratio 17.5 Glucose 662 H* POC Glucose (mg/dL) > 444 H* Glucose Meter Confirm 662 H* Hemoglobin A1c Lactic Acid Calcium 8.9 Magnesium 1.9 Total Bilirubin AST ALT Alkaline Phosphatase Ammonia Troponin I Total Protein Albumin Globulin Albumin/Globulin Ratio Triglycerides Lipase Urine Color Straw Urine Appearance Clear Urine pH 6.0 Ur Specific [place] 1.023 Urine Protein Negative Urine Ketones Trace A Urine Blood Negative Urine Nitrate Negative Urine Bilirubin Negative Urine Urobilinogen Negative Ur Leukocyte Esterase Negative Urine Glucose 3+(>=500 mg/dl) A Blood Type Antibody Screen Crossmatch 11/14/18 11/14/18 11/14/18 03:28 04:10 04:15 WBC RBC Hgb 7.8 L Hct 26 L MCV MCH MCHC RDW Plt Count MPV Neut % (Auto) Lymph % (Auto) Living[place] % (Auto) Eos % (Auto) Baso % (Auto) Absolute Neuts (auto) Absolute Lymphs (auto) Absolute Monos (auto) Absolute Eos (auto) Absolute Basos (auto) Absolute Nucleated RBC Nucleated RBC % INR (Anticoag Therapy) VBG pH VBG pCO2 VBG pO2 VBG HCO3 VBG O2 Saturation VBG Base Excess Sodium Potassium Chloride Carbon Dioxide Anion Gap BUN Creatinine Est GFR ( Amer) Est GFR (Non-Af Amer) BUN/Creatinine Ratio Glucose POC Glucose (mg/dL) > 444 H* Glucose Meter Confirm 595 H* Hemoglobin A1c Lactic Acid Calcium Magnesium Total Bilirubin AST ALT Alkaline Phosphatase Ammonia Troponin I Total Protein Albumin Globulin Albumin/Globulin Ratio Triglycerides Lipase Urine Color Urine Appearance Urine pH Ur Specific [place] Urine Protein Urine Ketones Urine Blood Urine Nitrate Urine Bilirubin Urine Urobilinogen Ur Leukocyte Esterase Urine Glucose Blood Type Antibody Screen Crossmatch 11/14/18 11/14/18 11/14/18 05:00 05:01 06:00 WBC RBC Hgb Hct MCV MCH MCHC RDW Plt Count MPV Neut % (Auto) Lymph % (Auto) [place] % (Auto) Eos % (Auto) Baso % (Auto) Absolute Neuts (auto) Absolute Lymphs (auto) Absolute Monos (auto) Absolute Eos (auto) Absolute Basos (auto) Absolute Nucleated RBC Nucleated RBC % INR (Anticoag Therapy) VBG pH VBG pCO2 VBG pO2 VBG HCO3 VBG O2 Saturation VBG Base Excess Sodium 138 Potassium TNP Chloride 104 Carbon Dioxide 27 Anion Gap 7 BUN 20 Creatinine 1.14 H Glucose 424 H POC Glucose (mg/dL) > 444 H* Glucose Meter Confirm 471 H Hemoglobin A1c Lactic Acid Calcium 8.2 L Magnesium TNP Total Bilirubin AST ALT Alkaline Phosphatase Ammonia Troponin I Total Protein Albumin Globulin Albumin/Globulin Ratio Triglycerides Lipase 93 H Urine Color Urine Appearance Urine pH Ur Specific [place] Urine Protein Urine Ketones Urine Blood Urine Nitrate Urine Bilirubin Urine Urobilinogen Ur Leukocyte Esterase Urine Glucose Blood Type Antibody Screen Crossmatch 11/14/18 11/14/18 11/14/18 06:00 06:00 06:05 WBC 5.0 RBC 2.76 L Hgb 7.0 L Hct 23 L MCV 82 MCH 25 L MCHC 31 RDW 19 H Plt Count 129 L MPV 10.6 H Neut % (Auto) 75.4 Lymph % (Auto) 13.2 Living[place] % (Auto) 7.7 Eos % (Auto) 2.8 Baso % (Auto) 0.9 Absolute Neuts (auto) 3.8 Absolute Lymphs (auto) 0.7 L Absolute Monos (auto) 0.4 Absolute Eos (auto) 0.1 Absolute Basos (auto) 0.0 Absolute Nucleated RBC 0.0 Nucleated RBC % 0.1 INR (Anticoag Therapy) VBG pH VBG pCO2 VBG pO2 VBG HCO3 VBG O2 Saturation VBG Base Excess Sodium Potassium Chloride Carbon Dioxide Anion Gap BUN Creatinine Est GFR ( Amer) Est GFR (Non-Af Amer) BUN/Creatinine Ratio Glucose POC Glucose (mg/dL) 422 H* Glucose Meter Confirm Hemoglobin A1c Lactic Acid Calcium Magnesium Total Bilirubin AST ALT Alkaline Phosphatase Ammonia Troponin I Total Protein Albumin Globulin Albumin/Globulin Ratio Triglycerides Lipase Urine Color Urine Appearance Urine pH Ur Specific [place] Urine Protein Urine Ketones Urine Blood Urine Nitrate Urine Bilirubin Urine Urobilinogen Ur Leukocyte Esterase Urine Glucose Blood Type O Positive Antibody Screen Negative Crossmatch See Detail 11/14/18 11/14/18 11/14/18 07:18 07:21 08:22 WBC RBC Hgb Hct MCV MCH MCHC RDW Plt Count MPV Neut % (Auto) Lymph % (Auto) [place] % (Auto) Eos % (Auto) Baso % (Auto) Absolute Neuts (auto) Absolute Lymphs (auto) Absolute Monos (auto) Absolute Eos (auto) Absolute Basos (auto) Absolute Nucleated RBC Nucleated RBC % INR (Anticoag Therapy) VBG pH VBG pCO2 VBG pO2 VBG HCO3 VBG O2 Saturation VBG Base Excess Sodium Potassium 3.5 Chloride Carbon Dioxide Anion Gap BUN Creatinine Est GFR ( Amer) Est GFR (Non-Af Amer) BUN/Creatinine Ratio Glucose POC Glucose (mg/dL) 322 H 272 H Glucose Meter Confirm Hemoglobin A1c Lactic Acid Calcium Magnesium 1.8 L Total Bilirubin AST 18 ALT Alkaline Phosphatase Ammonia Troponin I Total Protein Albumin Globulin Albumin/Globulin Ratio Triglycerides Lipase Urine Color Urine Appearance Urine pH Ur Specific [place] Urine Protein Urine Ketones Urine Blood Urine Nitrate Urine Bilirubin Urine Urobilinogen Ur Leukocyte Esterase Urine Glucose Blood Type Antibody Screen Crossmatch 11/14/18 11/14/18 11/14/18 09:00 10:04 10:55 WBC RBC Hgb Hct MCV MCH MCHC RDW Plt Count MPV Neut % (Auto) Lymph % (Auto) [place] % (Auto) Eos % (Auto) Baso % (Auto) Absolute Neuts (auto) Absolute Lymphs (auto) Absolute Monos (auto) Absolute Eos (auto) Absolute Basos (auto) Absolute Nucleated RBC Nucleated RBC % INR (Anticoag Therapy) VBG pH VBG pCO2 VBG pO2 VBG HCO3 VBG O2 Saturation VBG Base Excess Sodium Potassium Chloride Carbon Dioxide Anion Gap BUN Creatinine Est GFR ( Amer) Est GFR (Non-Af Amer) BUN/Creatinine Ratio Glucose POC Glucose (mg/dL) 235 H 176 H 124 H Glucose Meter Confirm Hemoglobin A1c Lactic Acid Calcium Magnesium Total Bilirubin AST ALT Alkaline Phosphatase Ammonia Troponin I Total Protein Albumin Globulin Albumin/Globulin Ratio Triglycerides Lipase Urine Color Urine Appearance Urine pH Ur Specific [place] Urine Protein Urine Ketones Urine Blood Urine Nitrate Urine Bilirubin Urine Urobilinogen Ur Leukocyte Esterase Urine Glucose Blood Type Antibody Screen Crossmatch Nutrition: Have started full liquids Impression: 1. Hyperglycemia resolving. 2. Chronic GI blood loss (from portal hypertensive gastropathy) with probable iron-deficiency anemia. 3. Pancreatitis (mild and edematous) - no abdominal pain at present Plan: 1. Gradually advance feeding and start sliding scale insulin Rx. 2. Monitor Hb and Hct. 3. Ferritin level to evaluate iron stores. I spoke with patient and her about current Dx and management plan. Critical Care Time: 45 minutes
[2018-11-14 12:29] LABS: Hematocrit 26 % (35-47); Hemoglobin 8.1 g/dL (12.0-16.0)
[2018-11-14] MEDS: Insulin LISPRO* 1 UNITS UNIT SUBCUT SCH ×4 (14:36→23:39)
--- NOTE | 2018-11-14 14:38 | CONS ---
GASTROENTEROLOGY CONSULT: DATE OF CONSULT: 11/14 CONSULTING PHYSICIAN: Dr. Marjorie Camacho. REASON FOR CONSULTATION: Abdominal pain and elevated lipase to 137 in the setting of hyperosmolar state with glucose 829. HISTORY: This 78-year-old woman with congestive failure, COPD, diabetes since 1987 (insulin in 2000), nonalcoholic fatty liver disease, and chronic anemia from [facility], began feeling poorly yesterday. It was her birthday and she was hoping not to come to the hospital, but she just felt weaker and dehydrated and began noting abdominal pressure and distention, so came to the emergency room where she had no overt cardiopulmonary issue, but her blood sugar was [address] scan showed a prominence of the third and fourth portion of the duodenum. No contrast was used. There was a right pleural effusion, but no ascites. Since admission, she has been on IV fluids and insulin and her blood sugar has come down to 424. She actually says she feels hungry and is looking forward to [facility]. She denies any past history of pancreatic disease. She listens carefully and never heard her prior business technology architect, Dr. Pena, use that term. She did have triglyceride level of 1117 in February 2011. She has had no new medications added. Her Bumex dose was raised and Aldactone lowered. There has been no abdominal trauma. She does not drink alcohol. PAST MEDICAL HISTORY: 1. Morbid obesity. 2. Diabetes - 32 years, 19 to 20 on insulin. Last creatinine at baseline 0.84 , BUN 11 to 18, congestive heart failure. 3. COPD - on oxygen p.r.n. 4. Chronic anemia - see extensive prior notes. She has portal hypertensive gastropathy. She has required iron infusions and takes oral iron. SOCIAL HISTORY: She lives with her , who is often wheelchair-bound. Her daughter, Zulma, lives in the [facility] ([phone]). REVIEW OF SYSTEMS: No history of new supplements, new medications, fever, vomiting, rash, hematuria, seizure, hemoptysis, trauma, or recent antibiotics. EXAM: She is in the ICU. Temperature 99.8, pulse 65 and regular, blood pressure 129/58. HEENT exam shows no icterus. She was sleeping and comfortable. She has passed some gas. Her last bowel movement was yesterday. She has no adenopathy. Breath sounds are diminished right base. Left side is normal. Heart sounds are regular. The abdomen is obese with bowel sounds present lower half. Extreme obesity is present. There is no tenderness. Rectal: Deferred. Extremities show 1+ edema at the ankles and obesity. DIAGNOSTIC STUDIES/LAB DATA: Followup labs - after 1 unit transfusion, hemoglobin 8.1, white count 5.0, platelets 129. Sodium 138, potassium 3.5, creatinine 1.14, BUN 20. ALT 17, alkaline phosphatase 218, bilirubin 0.5. CT review - there is some prominence in the duodenal sweep, though no obvious fluid collection or stranding. The body and tail of the pancreas appear normal. However, recent CT scans have been without IV contrast. The findings are not dramatic. Ultrasound - no obvious stones or dilation of the common duct. IMPRESSION: This 78-year-old longstanding diabetic with significant cardiac disease is admitted in a hyperosmolar state with abdominal pain and elevated lipase. At this level of glucose abdominal pain that is nonspecific can occur. Thus the lipase is nonspecific and though the CT points to an apparent first episode of pancreatitis I do not expect to pin down another cause. The history of no prior pancreatitis will be confirmed with the rest of the family, but appears to be true as there have been relatively few lipase determinations over time. It Again pancreatitis is probably a secondary metabolic effect as it is not full fledged and probably somehow triggered by the hyperosmolar state. It is mild clinically as she has a normal white count and bowel sounds that are active. She once in the past had a triglyceride value over 1100, but that is not the case now. Conservative management is indicated. [id number]/[facility] #: [id number] [facility]ITAL CENTERLinda
[2018-11-14] MEDS: Insulin GLARGINE(*) 1 UNITS UNIT SUBCUT SCH (19:54)
[2018-11-14] MEDS: Terazosin CAP* 5 MG PO SCH (20:38)
[2018-11-15] MEDS: Insulin LISPRO* 1 UNITS UNIT SUBCUT SCH ×5 (04:14→22:23)
[2018-11-15 04:46] LABS: Hematocrit 27 % (35-47); Hemoglobin 8.2 g/dL (12.0-16.0); Mean Corpuscular HGB Conc 31 g/dL (31-36); Mean Corpuscular Hemoglobin 26 pg (27-31); Mean Corpuscular Volume 83 fL (80-97); Mean Platelet Volume 9.6 fL (7.4-10.4); Platelet Count 100 10^3/uL (150-450); Red Blood Count 3.22 10^6 /uL (3.70-4.87); Red Cell Distribution Width 18 % (10.5-15); White Blood Count 4.9 10^3/uL (3.5-10.8)
[2018-11-15 05:08] LABS: Albumin 2.6 g/dL (3.2-5.2); Albumin/Globulin Ratio 0.9 (1-3); BUN/Creatinine Ratio 14.3 (8-20); EGFR African American 61.5 (>60); EGFR Non-African American 50.8 (>60); Globulin 2.9 g/dL (2-4); Potassium 3.6 mmol/L (3.5-5.0); Total Bilirubin 0.4 mg/dL (0.2-1.0); Total Protein 5.5 g/dL (6.4-8.9)
[2018-11-15 05:28] LABS: Ferritin 70.2 ng/mL (11-307)
[2018-11-15] MEDS: Levothyroxine TAB* 25 MCG TAB PO SCH ×2 (05:52→17:50)
[2018-11-15] MEDS: Insulin GLARGINE(*) 1 UNITS UNIT SUBCUT SCH ×2 (07:49→22:23)
[2018-11-15] MEDS: Multivitamins/Minerals TAB PO SCH (07:50)
[2018-11-15] MEDS: Pantoprazole TAB * 40 MG TAB PO SCH ×2 (07:50→22:25)
[2018-11-15] MEDS: Ferrous Sulfate TAB* 325 MG PO SCH ×2 (07:50→22:24)
[2018-11-15] MEDS: Cyanocobalamin TAB* 500 MCG PO SCH (07:50)
[2018-11-15] MEDS: Spironolactone TAB* 25 MG PO SCH (07:50)
[2018-11-15] MEDS: Atorvastatin* 10 MG TAB PO SCH (07:50)
[2018-11-15] MEDS: Carvedilol TAB* 25 MG PO SCH ×2 (07:51→22:24)
[2018-11-15] MEDS: Bumetanide TAB* 2 MG PO SCH ×2 (07:51→22:24)
--- NOTE | 2018-11-15 08:40 | PN ---
Subjective Date of Service: 11/15/18 Interval History: Tolerating liquid diet without pain No pain without palpation, no N/V No BM since time in ED, +flatus Feels less bloated Put on nasal canula overnight bc history of ONUR Objective Active Medications: Acetaminophen (Tylenol Tab*) 650 mg PO Q6H PRN PRN Reason: PAIN Last Admin: 11/14/18 06:09 Dose: 650 mg Albuterol (Ventolin Hfa Inhaler*) 2 puff INH Q4H PRN PRN Reason: SOB/WHEEZING Atorvastatin Calcium (Lipitor*) 10 mg PO DAILY [facility] Last Admin: 11/15/18 07:50 Dose: 10 mg Bumetanide (Bumex Tab*) 2 mg PO BID [facility] Last Admin: 11/15/18 07:51 Dose: 2 mg Calcium Carbonate (Tums*) 500 mg PO DAILY PRN PRN Reason: INDIGESTION Carvedilol (Coreg Tab*) 25 mg PO BID [facility] Last Admin: 11/15/18 07:51 Dose: 25 mg Cyanocobalamin (Vitamin B12 Tab*) 1,000 mcg PO DAILY [facility] Last Admin: 11/15/18 07:50 Dose: 1,000 mcg Ferrous Sulfate (Ferrous Sulfate Tab*) 325 mg PO BID [facility] Last Admin: 11/15/18 07:50 Dose: 325 mg Insulin Glargine (Lantus(*)) 40 units SUBCUT Q24H [facility] Last Admin: 11/14/18 19:54 Dose: 40 units Insulin Glargine (Lantus(*)) 70 units SUBCUT Q24H [facility] Last Admin: 11/15/18 07:49 Dose: 70 units Insulin Human Lispro (Humalog*) 0 units SUBCUT Q4H [facility]; Protocol Last Admin: 11/15/18 04:14 Dose: 6 unit Levothyroxine Sodium (Synthroid Tab*) 25 mcg PO Q12H [facility] Last Admin: 11/15/18 05:52 Dose: 25 mcg Multi-Ingredient Liniment/Rub (Arnol Champagne*) 1 applic TOPICAL BID PRN PRN Reason: cramps Last Admin: 11/14/18 06:42 Dose: 1 applic Multivitamins/Minerals (Theragran/Minerals Tab*) 1 tab PO DAILY [facility] Last Admin: 11/15/18 07:50 Dose: 1 tab Nystatin (Nystatin Top Powder*) 1 applic TOPICAL BID PRN PRN Reason: ITCHING Ondansetron HCl (Zofran Inj*) 4 mg IV Q4H PRN PRN Reason: NAUSEA/VOMITING Pantoprazole Sodium (Protonix Tab*) 40 mg PO BID [facility] Last Admin: 11/15/18 07:50 Dose: 40 mg Simethicone (Mylicon Tab*) 80 mg PO DAILY PRN PRN Reason: INDIGESTION Last Admin: 11/14/18 10:00 Dose: 80 mg Spironolactone (Aldactone Tab*) 50 mg PO DAILY [facility] Last Admin: 11/15/18 07:50 Dose: 50 mg Terazosin HCl (Hytrin Cap*) 10 mg PO BEDTIME [facility] Last Admin: 11/14/18 20:38 Dose: 10 mg Triamcinolone Acetonide (Triamcinolone 0.025% Oint *) 1 applic TOPICAL DAILY PRN PRN Reason: RASH Vital Signs - 8 hr 11/15/18 11/15/18 11/15/18 01:00 02:00 03:00 Temperature Pulse Rate 64 62 60 Respiratory 13 15 11 Rate Blood Pressure 133/52 108/51 (mmHg) O2 Sat by Pulse 99 98 96 Oximetry 11/15/18 11/15/18 11/15/18 03:01 04:00 04:40 Temperature 96.7 F Pulse Rate 59 56 Respiratory 14 15 Rate Blood Pressure 126/56 129/55 (mmHg) O2 Sat by Pulse 98 99 Oximetry 11/15/18 11/15/18 11/15/18 05:00 05:07 06:00 Temperature Pulse Rate 56 58 58 Respiratory 13 15 13 Rate Blood Pressure 156/70 145/55 (mmHg) O2 Sat by Pulse 99 99 99 Oximetry 11/15/18 11/15/18 11/15/18 07:00 07:53 08:00 Temperature 97.6 F Pulse Rate 52 Respiratory 12 16 Rate Blood Pressure 131/56 (mmHg) O2 Sat by Pulse 99 Oximetry Oxygen Devices in Use Now: Nasal Cannula Appearance: well appearing, NAD Eyes: No Scleral Icterus, PERRLA Ears/Nose/Mouth/Throat: Clear Oropharnyx, Mucous Membranes Moist Neck: NL Appearance and Movements; NL JVP, Trachea Midline Respiratory: Symmetrical Chest Expansion and Respiratory Effort, Clear to Auscultation Cardiovascular: RRR, - - soft GINGER Abdominal: - - soft, ND, mild TTP epigastrum with deep palpation Lymphatic: No Cervical Adenopathy Extremities: No Edema Skin: No Rash or Ulcers Neurological: Alert and Oriented x 3, - - cn 2-12 intact Result Diagrams: 11/15/18 04:40 11/15/18 04:40 Microbiology and Other Data: Microbiology 11/13/18 23:23 Aerobic Blood Culture - Preliminary Blood Venous No Growth Day 1 Anaerobic Blood Culture - Preliminary No Growth Day 1 11/13/18 22:50 Aerobic Blood Culture - Preliminary Blood Venous No Growth Day 1 Anaerobic Blood Culture - Preliminary No Growth Day 1 11/14/18 02:40 Nasal Screen MRSA (PCR) - Final Nasal Mrsa Not Detected Assess/Plan/Problems-Billing Assessment: 78 yo F h/o portal hypertension gastropathy, IDDM, CHF, COPD on intermittent O2 PRN pw hyperosmolar hyperglycemic state and pancreatitis - Patient Problems (1) Hyperosmolar non-ketotic state in patient with type 2 diabetes mellitus Comment: Off insulin gtt since yesterday back on basal bolus insulin suspect in setting of pancreatitis or missing meds in setting of feeling ill on presentation (2) Pancreatitis Comment: Mild Appreciate GI c/s Unclear etiology - possible caused by HHS - again unclear Fluids off no pain meds since yesterday advance diet today and monitor (3) Anemia Comment: known hypertensive gastropathy with blood loss c/w iron s/p 1 U PRBC this hospital stay (4) COPD (chronic obstructive pulmonary disease) Comment: PRN O2 stable, not on controller meds (5) CHF (congestive heart failure) Comment: c/w bumex carvedilol
[2018-11-15] MEDS: Terazosin CAP* 5 MG PO SCH (22:32)
[2018-11-16] MEDS: Insulin LISPRO* 1 UNITS UNIT SUBCUT SCH ×4 (00:30→12:43)
[2018-11-16] MEDS: Levothyroxine TAB* 25 MCG TAB PO SCH (06:25)
[2018-11-16] MEDS: Spironolactone TAB* 25 MG PO SCH (08:32)
[2018-11-16] MEDS: Atorvastatin* 10 MG TAB PO SCH (08:32)
[2018-11-16] MEDS: Multivitamins/Minerals TAB PO SCH (08:32)
[2018-11-16] MEDS: Bumetanide TAB* 2 MG PO SCH (08:32)
[2018-11-16] MEDS: Pantoprazole TAB * 40 MG TAB PO SCH (08:32)
[2018-11-16] MEDS: Ferrous Sulfate TAB* 325 MG PO SCH (08:32)
[2018-11-16] MEDS: Cyanocobalamin TAB* 500 MCG PO SCH (08:32)
[2018-11-16] MEDS: Carvedilol TAB* 25 MG PO SCH (08:32)
[2018-11-16] MEDS: Insulin GLARGINE(*) 1 UNITS UNIT SUBCUT SCH (08:33)
[2018-11-16 11:33] VITALS: BP 135/83
--- NOTE | 2018-11-16 13:44 | DS ---
CC: Neena Moyer MD * DISCHARGE SUMMARY: DATE OF ADMISSION: 11/13/18 DATE OF DISCHARGE: 11/16/18 PRIMARY CARE PROVIDER: Neena Moyer MD. DISPOSITION ON DISCHARGE: Home. CONDITION ON DISCHARGE: Improved. PRIMARY DIAGNOSES: 1. Hyperglycemic, hyperosmolar state. 2. Mild pancreatitis. SECONDARY DIAGNOSES: Include: 1. History of nonalcoholic steatohepatitis. 2. History of duodenal arteriovenous malformation. 3. History of esophageal varices and portal hypertensive gastropathy. 4. History of peptic ulcer disease. 5. History of congestive heart failure. 6. Hypertension. 7. Chronic obstructive pulmonary disease, on p.r.n. oxygen. 8. Diabetes. 9. Chronic kidney disease. MEDICATIONS: Discontinuation of losartan b.i.d. given her normalized blood pressures while in the hospital in the setting of illness. Medications on discharge: 1. Triamcinolone cream topically as needed daily. 2. Terazosin 10 mg at bedtime. 3. Spironolactone 25 mg daily. 4. Simvastatin 20 mg daily. 5. Potassium chloride 20 mEq twice daily. 6. Omeprazole 20 mg twice daily. 7. Nystatin powder topically twice daily as needed. 8. Nitroglycerin sublingual tabs 0.3 mg every 5 minutes as needed for chest pain. 9. Multivitamin 1 tab daily. 10. Levothyroxine 25 mcg daily. 11. Insulin glargine 70 units in the morning and 40 units at night. 12. Ferrous sulfate 325 mg twice daily. 13. Vitamin B12 of 1000 mcg daily. 14. Carvedilol 25 mg twice daily. 15. Calcium carbonate/simethicone 1 tab daily as needed. 16. Bumetanide 2 mg twice daily. 17. Albuterol 2 puffs every 4 hours as needed for shortness of breath. PERTINENT LABORATORY DATA: Glucose on presentation 595, hemoglobin A1c of 11.9 , lactic acid 1.9, notable blood gas VBG 7.39. White blood cell count 6.0 on presentation, hemoglobin of 8.3 on presentation and 8.2 on discharge. Urine was bland except for glucose and ketones. Creatinine on presentation 1.3 and 1.0 on discharge. Lipase of 137 on presentation. PERTINENT IMAGING STUDIES: CT abdomen and pelvis. Impression: Acute pancreatitis, pancreatic head is enlarged with peripancreatic inflammatory changes. No pancreatic calcification or distention of the pancreatic duct. Associated inflammatory changes in the right and left anterior pararenal fascia. Fluid is seen over the right dome of the liver. No evidence of bowel obstruction. No walled-off fluid collection. Moderate right-sided pleural effusion with associated atelectasis also seen in August of 2018 and bilateral adrenal nodules which was also seen on CT study in August 2018 and has not significantly changed. HISTORY OF PRESENT ILLNESS AND HOSPITAL COURSE: This is a pleasant 78-year-old female with past medical history as outlined in the history of present illness, who on the day of admission presented to the hospital after feeling unwell for several days with nausea and abdominal distention when she developed pain. She had skipped her Lantus in the setting of feeling unwell and so "lousy," presented to the hospital, found with significantly elevated blood glucose with the absence of notable acidosis consistent with hyperglycemic hyperosmolar state. CAT scan was consistent with pancreatitis. Lipase was minimally elevated. She was seen in conjunction with Gastroenterology, thought she did have pancreatitis, although likely secondary to hyperosmolar state, although unclear pathophysiology. She was treated with n.p.o. status, pain medication, and fluids. She resolved very rapidly in less than 24 hours. Able to tolerate clears and then transition to soft and ultimately a regular or a low-fat diet within 48 days. On the day of discharge, felt back to her baseline. No abdominal pain, no nausea, no vomiting with positive flatus and bowel movements. She is back on her home regimen of Lantus, although is requiring a low-dose of breakthrough sliding scale throughout the day. It is noted that she is not on a sliding scale throughout the day and I believe this is in the setting of inability to manage on her own the sliding scale. I have discussed consultation with an relief charge nurse as well as discussion about dietary counseling with [facility] which the patient is amendable to. I have placed both of these into the discharge paper work for the patient to follow up with. I encourage you to assist her in making these appointments. There are no complications during the course of the hospital stay, and in fact she had a rapid turnaround. She did require acute stay in the ICU for insulin drip in the setting of a hyperglycemic hyperosmolar state. At followup please; 1. Manage diabetes as you deem appropriate and/or refer to relief charge nurse for additional care. 2. Would recommend additional counseling at [facility] for diabetic diet which the patient is interested at this time. 3. Restart losartan if necessary, discontinued with normotensive blood pressures at the time of discharge. 4. No other specific labs or vitals that need followup at the time of discharge. Reasons to return to the hospital including, but not limited to, recurrent or worsening symptoms, abdominal pain, nausea, vomiting, diarrhea, inability to obtain or tolerate medications or food, chest pain, shortness of breath, loss of consciousness, or near loss of consciousness discussed with the patient. She acknowledged understanding. TIME SPENT: Greater than 60 minutes was spent on discharge of this patient, greater than half was spent [id number] with the patient. [id number]/[facility] #: [id number] WENDY
== END 2018-11-16 15:50 | disposition home or self-care (01) | DRG 637 ==
LOC: ED 22:30 → ICU 11-14 01:37 → MED 11-15 09:06
PROVIDERS: ADMIT Pediatrics; ATTEND Internal Medicine
PROC: 30233N1 Transfusion of Nonautologous Red Blood Cells into Peripheral Vein, Percutaneous Approach (ICD-10-PCS; principal; 2018-11-14)
DX: E11.00 Type 2 diabetes mellitus with hyperosmolarity without nonketotic hyperglycemic-hyperosmolar coma (NKHHC) (principal); K85.90 Acute pancreatitis without necrosis or infection, unspecified; I13.0 Hypertensive heart and chronic kidney disease with heart failure and stage 1 through stage 4 chronic kidney disease, or unspecified chronic kidney disease; I42.9 Cardiomyopathy, unspecified; K76.6 Portal hypertension; N18.3 Chronic kidney disease, stage 3 (moderate); E11.22 Type 2 diabetes mellitus with diabetic chronic kidney disease; E78.00 Pure hypercholesterolemia, unspecified; I50.9 Heart failure, unspecified; J43.9 Emphysema, unspecified; Z96.1 Presence of intraocular lens; K74.60 Unspecified cirrhosis of liver; K75.81 Nonalcoholic steatohepatitis (NASH); K31.89 Other diseases of stomach and duodenum; E78.5 Hyperlipidemia, unspecified; E66.01 Morbid (severe) obesity due to excess calories; E03.9 Hypothyroidism, unspecified; E11.40 Type 2 diabetes mellitus with diabetic neuropathy, unspecified; K31.819 Angiodysplasia of stomach and duodenum without bleeding; D50.0 Iron deficiency anemia secondary to blood loss (chronic); K21.9 Gastro-esophageal reflux disease without esophagitis; M19.90 Unspecified osteoarthritis, unspecified site; M48.00 Spinal stenosis, site unspecified; Z98.42 Cataract extraction status, left eye; Z90.710 Acquired absence of both cervix and uterus; Z88.8 Allergy status to other drugs, medicaments and biological substances; Z98.41 Cataract extraction status, right eye; Z82.49 Family history of ischemic heart disease and other diseases of the circulatory system; Z87.891 Personal history of nicotine dependence; Z87.11 Personal history of peptic ulcer disease; Z68.36 Body mass index [BMI] 36.0-36.9, adult; Z79.4 Long term (current) use of insulin; Z91.14 Patient's other noncompliance with medication regimen
CPT/HCPCS: 36415; 71045; 74176; 76705; 80048; 80053; 81003; 82140; 82728; 82803; 82947; 83036; 83605; 83690; 83735; 84478; 84484; 85014; 85018; 85025; 85027; 85610; 86850; 86900; 86901; 86922; 87040; 87641; 93005; 99284; A9270-GY; G8978-GP-CJ; G8979-GP-CI; G8987-GO-CI; G8988-GO-CI; G8989-GO-CI; J1815; J2270; J2405; J3475; P9040

== ENCOUNTER 2018-12-05 21:52 | Emergency (ER) | payer MEDICARE, OTHER ==
[2018-12-05] MEDS ORDERED: NS 0.9% 1000 ML** 2,000 ML IV ONE (22:37)
[2018-12-05] MEDS ORDERED: Insulin REGULAR(*) 1 UNITS UNIT IV PUSH ONE (22:37)
--- NOTE | 2018-12-05 22:44 | ED ---
HPI Diabetic - HPI Summary HPI Summary: 78 year old F referred to [facility] by her primary care provider with a chief complaint of glucose of 600 this morning at her doctor's appointment. The patient rates the pain 9/10 in severity. Symptoms aggravated by nothing. Symptoms alleviated by nothing. Patient reports chronic back pain d/t spinal stenosis. Patient takes tramadol occasionally as needed. Patient was prescribed oxycodone by her doctor today but has not taken it yet. Patient normally checks her blood glucose twice a day. This afternoon at 16:00, it was 472. Patient takes 70 insulin in morning, 40 insulin in evening. Patient was seen in ED for the same complaint a few weeks ago. - History Of Current Complaint Chief Complaint: EDDiabeticProb Time Seen by Provider: 12/05/18 22:12 Hx Obtained From: Patient Onset/Duration: Lasting Hours - 12, Still Present Timing: Constant Severity Currently: Severe Aggravating: Nothing Alleviating: Nothing - Allergies/Home Medications Allergies/Adverse Reactions: Allergies Allergy/AdvReac Type Severity Reaction Status Date / Time captopril Allergy Severe Hives Verified 12/05/18 22:01 PMH/Surg Hx/FS Hx/Imm Hx Previously Healthy: No Endocrine/Hematology History: Reports: Hx Blood Transfusions, Hx Diabetes, Hx Thyroid Disease, Hx Anemia - chronic iron infusions Cardiovascular History: Reports: Hx Angina, Hx Congestive Heart Failure, Hx Coronary Artery Disease, Hx Hypercholesterolemia, Hx Hypertension, Other Cardiovascular Problems/Disorders - cardiomyopathy Denies: Hx Myocardial Infarction, Hx Pacemaker/ICD Respiratory History: Reports: Hx Asthma, Hx Chronic Obstructive Pulmonary Disease (COPD), Hx Sleep Apnea, Other Respiratory Problems/Disorders - emphysema GI History: Reports: Hx Cirrhosis, Hx Gastroesophageal Reflux Disease, Hx Gastrointestinal Bleed, Hx Hiatal Hernia - s/p repair, Other GI Disorders - HELICOBACTER INFECTION History: Reports: Hx Chronic Renal Failure - Stage 3, Hx Renal Disease, Other Problems/Disorders - CKD stage 3 Musculoskeletal History: Reports: Hx Arthritis, Hx Back Problems, Other Musculoskeletal History - spinal stenosis Sensory History: Reports: Hx Cataracts - surgery with implants bilat eyes 96, Hx Contacts or Glasses - reading Denies: Hx Deafness, Hx Hearing Aid Opthamlomology History: Reports: Hx Cataracts - surgery with implants bilat eyes 96, Hx Contacts or Glasses - reading Neurological History: Reports: Other Neuro Impairments/Disorders - vertigo Psychiatric History: Reports: Hx Anxiety, Hx Depression, Other Psychiatric Issues/Disorders - PT REPORTS"STRESS" AND SAYS HER MD GAVE HER A MED FOR IT, UNSURE WHAT Denies: Hx Panic Disorder - Surgical History Surgery Procedure, Year, and Place: HERNIA. HYSTERECTOMY. CATERACTS. CARPAL TUNNEL. CYSTS REMOVED FROM BILATERAL ARMPITS. RTC RT. LT FOOT SURGERY - Immunization History Date of Tetanus Vaccine: > 10 yers Date of Influenza Vaccine: [id number] Infectious Disease History: No Infectious Disease History: Denies: Hx of Known/Suspected MRSA, Traveled Outside the [place] in Last 30 Days - Family History Known Family History: Positive: Other - Yes - CHF (Mother) - Social History Alcohol Use: None Hx Substance Use: No Substance Use Type: Reports: None Hx Tobacco Use: Yes Smoking Status (MU): Former Smoker Have You Smoked in the Last Year: No Review of Systems Positive: Other - elevated glucose of 600 Positive: Other - chronic back pain All Other Systems Reviewed And Are Negative: Yes Physical Exam - Summary Physical Exam Summary: VITAL SIGNS: Reviewed. GENERAL: Patient is a well-developed and nourished FEMALE who is lying comfortable in the stretcher. Patient is not in any acute respiratory distress. HEAD AND FACE: No signs of trauma. No ecchymosis, hematomas or skull depressions. No sinus tenderness. EYES: PERRLA, EOMI x 2, No injected conjunctiva, no nystagmus. EARS: Hearing grossly intact. Ear canals and tympanic membranes are within normal limits. MOUTH: Oropharynx within normal limits. NECK: Supple, trachea is midline, no adenopathy, no JVD, no carotid bruit, no c- spine tenderness, neck with full ROM CHEST: Symmetric, no tenderness at palpation LUNGS: Clear to auscultation bilaterally. No wheezing or crackles. CVS: Regular rate and rhythm, S1 and S2 present, no murmurs or gallops appreciated. ABDOMEN: Abdomen is distended, hypoactive bowel sounds EXTREMITIES: FROM in all major joints, no edema, no cyanosis or clubbing. NEURO: Alert and oriented x 3. No acute neurological deficits. Speech is normal and follows commands. SKIN: Bilateral lower extremity skin changes with venous stasis Triage Information Reviewed: Yes Vital Signs On Initial Exam: Initial Vitals Temp Pulse Resp BP Pulse Ox 98.2 F 88 20 184/78 100 12/05/18 21:55 12/05/18 21:55 12/05/18 21:55 12/05/18 21:55 12/05/18 21:55 Vital Signs Reviewed: Yes Diagnostics - Vital Signs Vital Signs Temp Pulse Resp BP Pulse Ox 12/05/18 21:55 98.2 F 88 20 184/78 100 - Laboratory Lab Results: Lab Results 12/05/18 Range/Units 22:08 POC Glucose (mg/dL) > 444 H* (70-100) mg/dL Result Diagrams: 12/05/18 22:27 12/05/18 22:31 Lab Statement: Any lab studies that have been ordered have been reviewed, and results considered in the medical decision making process. - Radiology CXR Radiology Interpretation Completed By: ED Physician Summary of Radiographic Findings: No acute process. Pending official report. Diabetic Course/Dx - Course Course Of Treatment: 78 year old F referred to [facility] by her primary care provider with a chief complaint of glucose of 600 this morning at her doctor's appointment. Patient normally checks her blood glucose twice a day. This afternoon at 16:00, it was 472. Patient takes 70 insulin in morning, 40 insulin in evening. Patient was seen in ED for the same complaint a few weeks ago. Labs showed glucose 593. CXR shows No acute process. In ED course, patient was given insulin, morphine, Ativan, and IV fluids. Patient's blood glucose levels improve after medication. Patient feels better and would like to go home. Patient will be discharged home with prescription for insulin and follow up from Dr. Contreras, merchandise director, in 1-2 days. Patient was instructed to return to ED for new or worsening symptoms. Patient understands and is agreeable to discharge plan. - Diagnoses Provider Diagnoses: Hyperglycemia Discharge - Sign-Out/Discharge Documenting (check all that apply): Patient Departure - Discharge Patient Received Moderate/Deep Sedation with Procedure: No - Discharge Plan Condition: Stable Disposition: HOME Prescriptions: Insulin LISPRO* [HumaLOG*] 0 units SUBCUT DIRECTED 30 Days #1 bottle Patient Education Materials: Diabetic Hyperglycemia (ED) Referrals: Jairon Contreras MD [Medical Doctor] - 1 Day Additional Instructions: Follow up with Dr. Contreras in 1-2 days. Return to the Emergency Department for new or worsening symptoms. - Attestation Statements Document Initiated by Scribe: Yes Documenting Scribe: Flower Jacobs Provider For Whom Scribe is Documenting (Include Credential): Duke Waggoner MD Scribe Attestation: I, Flower Jacobs, scribed for Duke Waggoner MD on 12/06/18 at 0527. Status of Scribe Document: Ready
[2018-12-05 23:00] LABS: ABS Eosinophils 0.1 10^3/ul (0-0.6); ABS Lymphocytes 0.4 10^3/ul (1.0-4.8); ABS Monocytes 0.3 10^3/ul (0-0.8); ABS Neutrophils 3.5 10^3/ul (1.5-7.7); Eosinophil % 3.3 %; Hematocrit 33 % (35-47); Hemoglobin 9.8 g/dL (12.0-16.0); Lymphocyte % 9.7 %; Mean Corpuscular HGB Conc 30 g/dL (31-36); Mean Corpuscular Hemoglobin 25 pg (27-31); Mean Corpuscular Volume 83 fL (80-97); Mean Platelet Volume 11.2 fL (7.4-10.4); Platelet Count 100 10^3/uL (150-450); Red Blood Count 3.92 10^6 /uL (3.70-4.87); Red Cell Distribution Width 18 % (10-15); White Blood Count 4.4 10^3/uL (3.5-10.8)
[2018-12-05] MEDS ORDERED: Insulin IVPB 100 units/100 ml 100 UNITS/100 ML UNIT IV SCH (23:00)
[2018-12-05 23:04] LABS: Albumin 3.5 g/dL (3.2-5.2); BUN/Creatinine Ratio 17.4 (8-20); Calcium 8.6 mg/dL (8.6-10.3); EGFR African American 52.2 (>60); EGFR Non-African American 43.1 (>60); Globulin 3.6 g/dL (2-4); Potassium 4.3 mmol/L (3.5-5.0); Total Bilirubin 0.6 mg/dL (0.2-1.0); Total Protein 7.1 g/dL (6.4-8.9)
[2018-12-06] MEDS ORDERED: Lorazepam PYXIS KEY ONE (00:03)
[2018-12-06] MEDS ORDERED: LORazepam INJ* 2 MG/ML 1 ML VIAL IV PUSH ONE (00:06)
[2018-12-06] MEDS ORDERED: Lorazepam PYXIS KEY PRN (00:06)
[2018-12-06] MEDS ORDERED: Morphine 4 MG/ML VIAL (1 ml) 4 MG/ML VIAL IV ONE (01:52)
[2018-12-06] MEDS ORDERED: Potassium Chlor TAB* 20 MEQ TAB.ER PO ONE (05:08)
[2018-12-06] MEDS ORDERED: Insulin REGULAR(*) 1 UNITS UNIT SUBCUT ONE (05:09)
[2018-12-06 05:50] VITALS: BP 172/81
== END 2018-12-06 06:20 | disposition home or self-care (01) ==
LOC: ED 21:52
DX: E11.65 Type 2 diabetes mellitus with hyperglycemia (principal); Z79.4 Long term (current) use of insulin; I25.10 Atherosclerotic heart disease of native coronary artery without angina pectoris; I10 Essential (primary) hypertension; Z86.79 Personal history of other diseases of the circulatory system; N18.3 Chronic kidney disease, stage 3 (moderate); Z87.891 Personal history of nicotine dependence; M54.5 Low back pain
CPT/HCPCS: 36415; 71045; 80053; 82803; 82947; 85025; 96361; 96374; 96375; 99284; A9270-GY; J1815; J2060; J2270

== ENCOUNTER 2019-01-05 12:54 | Observation (INO) | payer MEDICARE, OTHER ==
--- OUTSIDE RECORDS SUMMARY | 2019-01-05 13:05 | XMS REPORT | Continuity of Care Document ---
:1940 External Reference #:[id number] Author Name Fern Velasquez Care Team Providers Name Role Phone Neena Moyer MD Primary Care Physician Unavailable Payers Date Identification Numbers Payment Provider Subscriber Effective: 2000 Policy Number: [id number] Medicare Erika Hansen PayID: [id number] [address] [place] [address] Effective: 2006 Policy Number: [id number] [employer] Erika Hansen Group Number: [id number] [address] PayID: [id number] [place] [address] Problems Active Problems Provider Date Primary cardiomyopathy Swapnil Horton M.D. Onset: 11/02/2013 Essential hypertension Swapnil Horton M.D. Onset: 11/02/2013 Chronic obstructive pulmonary disease with Stacie Lutz M.D. Onset: 2017 (acute) exacerbation Type 2 diabetes mellitus Stacie Lutz M.D. Onset: 02/20/2018 Note: on insulin since 2003 (at least - when referred for first screening colon on 05/27/04 taking NPH 80 / 60 U) Obesity Kiki Moore DO Onset: 02/21/2018 Chronic combined systolic and diastolic Rajat Gonzalez MD Onset: heart failure Anemia Jennifer Carty D.O. Onset: 03/11/2018 Thrombocytopenic disorder Jennifer Carty D.O. Onset: 03/11/2018 Hypothyroidism Jennifer Carty D.O. Onset: 03/11/2018 Cirrhosis - non-alcoholic Samir Marcial MD Onset: 12/05/2014 Note: micronodular contour to liver this date; Hep B +C studies negative; Chronic hypoxemic respiratory failure Nakita Junior M.D. Onset: 05/29/2018 Chronic obstructive lung disease Nakita Junior M.D. Onset: 05/29/2018 Note: quit smoking approx 2001 Chronic kidney disease stage 2 Nakita Junior M.D. Onset: 05/30/2018 Family History Date Family Member(s) Observation Comments Father due to CHF () Mother Alzheimer's Disease Siblings 3 3 living siblings, 1 younger sister with diabetes- gastric bypass, back sx, boils, liver resection 1 younger brother- diabetic 1 younger sister with substance abuse issues. 1 brother, liver cirroshis 1 older brother- diabetes and cardiac disease 1 brother- twin to 1 of above sisters 56 at , unknown cause. Social History Type Date Description Comments Sex Unknown Marital Status Lives With Spouse Tobacco Use Start: Unknown none ETOH Use Denies alcohol use Tobacco Use Start: Unknown Patient is a former smoked cigarettes for End: Unknown smoker 40 years, approximately 2 cartons per week (the last 6 years), and quit in 2001 Recreational Drug Use Denies Drug Use Smoking Status Reviewed: 12/27/18 Patient is a former smoked cigarettes for smoker 40 years, approximately 2 cartons per week (the last 6 years), and quit in 2001 Exercise Type/Frequency Does not exercise Allergies, Adverse Reactions, Alerts Active Allergies Reaction Severity Comments Date Captopril rash 11/02/2013 Medications Active Medications SIG Qnty Indications Ordering Date Provider Humulin N 25 units once 20ml Jairon Contreras MD 12/13/2018 100Unit/ML daily at bedtime Suspension Prilosec take 1 tab by ashlyn Prado 05/05/[address] mouth twice daily MD Aniket Oxycodone HCL 1/2 tabs by mouth Unknown 5mg Tablets every 4-6 hours as needed Humalog Kwikpen 35 units with 30ml Jairon Contreras MD breakfast, 30 100Unit/ML Solution units with lunch Pen-Inject and supper; mdd 100 Nitroglycerin 1 tab sub lingual Unknown 0.3mg as needed every 5 Tablets Sub minuted for chest pain max 3, then call ambulance Albuterol Inhaler as needed Unknown Multivitamins 1 by mouth every 30caps Unknown Capsules day Metolazone 1 po twice a week 30tabs Unknown 2.5mg Tablets Simvastatin 1 by mouth every 90tabs Unknown 20mg Tablets day Levothyroxine Sodium 1 by mouth every Unknown day 25mcg Tablets Metformin HCL 1 tablet twice 60tabs Unknown 500mg daily Tablets Losartan Potassium 1 po bid Unknown 50mg Tablets Carvedilol 1 by mouth bid 200tabs Unknown 25mg Tablets Iron 1 by mouth bid Unknown 325(65Fe) mg Tablets Vitamin B-12 2 po qd 30tabs Unknown 500mcg Tablets Sub Potassium Chloride ER 1 by mouth bid 30tabs Unknown 20Meq Tablets ER Terazosin HCL 1 by mouth every 90caps Unknown 10mg day Capsules Bumetanide 1 po bid 180tabs Unknown 2mg Tablets Spironolactone 1 by mouth every Unknown 25mg day Tablets History Medications Suprep Bowel Prep Kit Take according to 354units Samir Prado 05/31/2018 - your physician's MD Aniket 07/28/2018 17.5-3.13-1.6GM/177ML instructions the Solution day before your procedure. Split the dose as directed. Glyburide 2 tabs by mouth 30tabs Unknown - 5mg Tablets twice a day 07/28/2018 Aspirin 1 by mouth every Unknown - 81mg Tablets day 07/28/2018 Detrol LA 1 po qd Unknown - 4mg 12/12/2018 Lantus Solostar 70 units qam and Unknown - 100Unit/ML Sopn 40 units qpm 12/12/2018 Vitamin C 2 tablets po daily Unknown - 500mg 01/11/2017 Lansoprazole/Amoxicillin/Cl 1 po daily for 10 Unknown - arithromycin days for infection 11/28/2014 30/500/500 Misc in stomach lining Citalopram Hydrobromide 1 by mouth every Unknown - 20mg day 10/25/2018 Tablets Vital Signs Date Vital Result Comment 12/27/2018 10:18am Height 63 inches 5'3" Weight 223.00 lb w/ shoes Heart Rate 86 /min BP Systolic 178 mmHg at end of intake. BP Diastolic 82 mmHg at end of intake. BP Systolic Sitting 214 mmHg BP Diastolic Sitting 96 mmHg BMI (Body Mass Index) 39.5 kg/m2 12/13/2018 9:37am Height 63 inches 5'3" Weight 218.00 lb Heart Rate 88 /min BP Systolic Sitting 196 mmHg BP Diastolic Sitting 92 mmHg BMI (Body Mass Index) 38.6 kg/m2 10/02/2018 2:47pm Height 63 inches 5'3" Heart Rate 76 /min BP Systolic 176 mmHg BP Diastolic 81 mmHg Respiratory Rate 22 /min Body Temperature 98.0 F O2 % BldC Oximetry 100 % 2 liters per nasal cannula 07/31/2018 2:03pm Height 63 inches 5'3" Weight 212.00 lb Heart Rate 75 /min BP Systolic 176 mmHg BP Diastolic 83 mmHg Respiratory Rate 22 /min Body Temperature 96.2 F O2 % BldC Oximetry 100 % O2 2 Liters per nasal cannula intermittently BMI (Body Mass Index) 37.6 kg/m2 05/05/2018 12:23pm Height 63 inches 5'3" Weight 222.00 lb Heart Rate 65 /min BP Systolic 178 mmHg BP Diastolic 77 mmHg Respiratory Rate 22 /min Body Temperature 98.2 F O2 % BldC Oximetry 99 % 2 liters of O2 BMI (Body Mass Index) 39.3 kg/m2 02/15/2018 7:59am Height 63 inches 5'3" Weight 228.00 lb Heart Rate 78 /min BP Systolic Sitting 158 mmHg lue lg cuff (no am meds) BP Diastolic Sitting 62 mmHg lue lg cuff (no am meds) BP Systolic Standing 160 mmHg BP Diastolic Standing 80 mmHg Respiratory Rate 18 /min BMI (Body Mass Index) 40.4 kg/m2 01/12/2017 10:20am Height 63 inches 5'3" Weight 215.00 lb with shoes Heart Rate 90 /min BP Systolic Sitting 122 mmHg Lue lg cuff BP Diastolic Sitting 70 mmHg Lue lg cuff BP Systolic Standing 130 mmHg Lue lg cuff BP Diastolic Standing 70 mmHg Lue lg cuff Respiratory Rate 17 /min BMI (Body Mass Index) 38.1 kg/m2 Ejection Fraction 40-45% date 11/23/16 echo 01/06/2016 1:42pm Height 63 inches 5'3" Weight 221.00 lb with shoes Heart Rate 64 /min BP Systolic Sitting 132 mmHg LA lg cuff BP Diastolic Sitting 80 mmHg LA lg cuff BP Systolic Standing 132 mmHg LA lg cuff BP Diastolic Standing 86 mmHg LA lg cuff Respiratory Rate 16 /min BMI (Body Mass Index) 39.1 kg/m2 Ejection Fraction 40-45% date 11/19/14 ECHO 11/29/2014 2:29pm Height 63 inches 5'3" Weight 233.00 lb with shoes Heart Rate 72 /min BP Systolic Sitting 148 mmHg LA lg cuff BP Diastolic Sitting 70 mmHg LA lg cuff BP Systolic Standing 144 mmHg LA lg cuff BP Diastolic Standing 70 mmHg LA lg cuff BMI (Body Mass Index) 41.3 kg/m2 Ejection Fraction 40-45% date 11/19/14 11/08/2014 2:48pm Height 63 inches 5'3" Weight 234.00 lb Heart Rate 80 /min BP Systolic Sitting 142 mmHg LA reg cuff BP Diastolic Sitting 64 mmHg LA reg cuff BP Systolic Standing 134 mmHg LA BP Diastolic Standing 66 mmHg LA Respiratory Rate 18 /min BMI (Body Mass Index) 41.4 kg/m2 Ejection Fraction 40-45% 04/27/11 11/02/2013 12:58pm Height 63 inches 5'3" Weight 225.00 lb Heart Rate 64 /min BP Systolic Sitting 108 mmHg Ra large cuff BP Diastolic Sitting 72 mmHg Ra large cuff BP Systolic Standing 104 mmHg Ra BP Diastolic Standing 76 mmHg Ra Respiratory Rate 18 /min BMI (Body Mass Index) 39.9 kg/m2 Results Test Date Facility Test Result H/L Range Note Stool Occult 11/07/2018 [facility] Stool Occult SEE RESULT 1 Blood Diag [address] Blood, [place] [address] [phone] Laboratory test 11/07/2018 [facility] Point of Care 312 mg/dL High 70-100 [address] [place] [address] [phone] Laboratory test 09/28/2018 [facility] B-Type 213 pg/mL High <= [address] [place] [address] Peptide BNP [phone] Erythropoietin 46.4 mIU/mL Abnormal 2.6 - 18.5 3 Basic Metabolic Panel 09/28/2018 [facility] Sodium 144 mmol/L N 135-145 [address] [place] [address] [phone] Potassium 3.7 mmol/L N 3.5-5.0 Chloride 107 mmol/L N 101-111 Co2 Carbon Dioxide 31 mmol/L N 22-32 Anion Gap 6 mmol/L N 2-11 Glucose 161 mg/dL High 70-100 Blood Urea Nitrogen 18 mg/dL N 6-24 Creatinine 0.82 mg/dL N 0.51-0.95 BUN/Creatinine Ratio 22.0 High 8-20 Calcium 8.6 mg/dL N 8.6-10.3 Egfr Non- 67.8 >60 Egfr 82.0 >60 4 CBC No Diff 09/28/2018 [facility] White Blood 5.3 10^3/uL N 3.5-10.[address] [place] [address] [phone] Red Blood Count 3.19 10^6/uL Low 3.70-4.87 Hemoglobin 8.0 g/dL Low 12.0-16.0 Hematocrit 26 % Low 33-41 Mean Corpuscular Volume 82 fL N 80-97 Mean Corpuscular Hemoglobin 25 pg Low 27-31 Mean Corpuscular HGB Conc 30 g/dL Low 31-36 Red Cell Distribution Width 17 % High 10.5-15 Platelet Count 146 10^3/uL Low 150-450 Mean Platelet Volume 10.1 fL N 7.4-10.4 Laboratory test 09/28/2018 [facility] Ferritin 172.0 ng/mL N 11-[address] [place] [address] [phone] Cell Morphology 07/31/2018 [facility] Polychromasia 1+ [address] [place] [address] [phone] Anisocytosis 2+ Laboratory test 07/31/2018 [facility] B-Type 282 pg/mL High <= [address] [place] [address] Peptide BNP [phone] Erythropoietin 44.9 mIU/mL Abnormal 2.6 - 18.5 5 CBC Auto Diff 07/31/2018 [facility] White Blood 6.4 10^3/uL N 3.5-10.[address] [place] [address] [phone] Red Blood Count 4.12 10^6/uL N 4.00-5.40 Hemoglobin 10.6 g/dL Low 12.0-16.0 Hematocrit 34 % Low 35-47 Mean Corpuscular Volume 83 fL N 80-97 Mean Corpuscular Hemoglobin 26 pg Low 27-31 Mean Corpuscular HGB Conc 31 g/dL N 31-36 Red Cell Distribution Width 19 % High 10.5-15 Platelet Count 137 10^3/uL Low 150-450 6 Mean Platelet Volume 10.5 fL High 7.4-10.4 Abs Neutrophils 4.5 10^3/uL N 1.5-7.7 Abs Lymphocytes 0.9 10^3/uL Low 1.0-4.8 Abs Monocytes 0.6 10^3/uL N 0-0.8 Abs Eosinophils 0.3 10^3/uL N 0-0.6 Abs Basophils 0.1 10^3/uL N 0-0.2 Abs Nucleated RBC 0 10^3/uL Granulocyte % 70.3 % Lymphocyte % 14.7 % Monocyte % 9.4 % Eosinophil % 4.1 % Basophil % 1.5 % Nucleated Red Blood Cells % 0.1 Basic Metabolic Panel 07/31/2018 [facility] Sodium 142 mmol/L N 135-[address] [place] [address] [phone] Potassium 3.5 mmol/L N 3.5-5.0 Chloride 103 mmol/L N 101-111 Co2 Carbon Dioxide 32 mmol/L N 22-32 Anion Gap 7 mmol/L N 2-11 Glucose 166 mg/dL High 70-100 Blood Urea Nitrogen 9 mg/dL N 6-24 Creatinine 0.84 mg/dL N 0.51-0.95 BUN/Creatinine Ratio 10.7 N 8-20 Calcium 8.4 mg/dL Low 8.6-10.3 Egfr Non- 65.9 >60 Egfr 79.8 >60 7 Laboratory test 07/31/2018 [facility] Ferritin 165.2 N 11-[address] ng/[place] [address] [phone] Laboratory test 06/30/2018 [facility] Troponin-I 0.01 ng/mL < 0.04 8, [address] (TnI) [place] [address] [phone] CBC Auto Diff 06/30/2018 [facility] White Blood 7.7 N 3.5- 10.[address] Count 10^3/[place] [address] [phone] Red Blood Count 3.28 10^6/uL Low 4.00-5.40 Hemoglobin 8.0 g/dL Low 12.0-16.0 Hematocrit 26 % Low 35-47 Mean Corpuscular Volume 80 fL N 80-97 Mean Corpuscular Hemoglobin 24 pg Low 27-31 Mean Corpuscular HGB Conc 31 g/dL N 31-36 Red Cell Distribution Width 22 % High 10.5-15 Platelet Count 129 10^3/uL Low 150-450 Mean Platelet Volume 11.2 fL High 7.4-10.4 Abs Neutrophils 6.2 10^3/uL N 1.5-7.7 Abs Lymphocytes 0.8 10^3/uL Low 1.0-4.8 Abs Monocytes 0.4 10^3/uL N 0-0.8 Abs Eosinophils 0.2 10^3/uL N 0-0.6 Abs Basophils 0.1 10^3/uL N 0-0.2 Abs Nucleated RBC 0 10^3/uL Granulocyte % 80.5 % Lymphocyte % 10.7 % Monocyte % 5.1 % Eosinophil % 2.6 % Basophil % 1.1 % Nucleated Red Blood Cells % 0.2 Comp Metabolic Panel 06/30/2018 [facility] Sodium 136 mmol/L N 135-[address] [place] [address] [phone] Potassium 4.7 mmol/L N 3.5-5.0 Chloride 99 mmol/L Low 101-111 Co2 Carbon Dioxide 31 mmol/L N 22-32 Anion Gap 6 mmol/L N 2-11 Blood Urea Nitrogen 37 mg/dL High 6-24 Creatinine 1.04 mg/dL High 0.51-0.95 BUN/Creatinine Ratio 35.6 High 8-20 Calcium 8.6 mg/dL N 8.6-10.3 Total Protein 6.4 g/dL N 6.4-8.9 Albumin 2.8 g/dL Low 3.2-5.2 Globulin 3.6 g/dL N 2-4 Albumin/Globulin Ratio 0.8 Low 1-3 Total Bilirubin 0.60 mg/dL N 0.2-1.0 Alkaline Phosphatase 200 U/L High 34-104 Alt 20 U/L N 7-52 Ast 22 U/L N 13-39 Egfr Non- 51.5 >60 Egfr 62.3 >60 10 Glucose 605 mg/dL High 70-100 11 Laboratory 06/30/2018 [facility] Partial 28.9 N 26.0-36.3 test finding [address] [place] [address] PTT [phone] Inr/Protime 06/30/2018 [facility] Inr 1.09 High 0.77-1.[address] [place] [address] [phone] Laboratory 06/06/2018 [facility] Surgical SEE RESULT [address] [place] [address] [phone] Type & Screen 05/28/2018 [facility] Patient Blood O Positive [address] [place] [address] [phone] Antibody Screen NEGATIVE Laboratory test 05/28/2018 [facility] Packed Cells SEE RESULTS [address] BELO <[place] [address] NOTE> [phone] Basic Metabolic 11/19/2014 [facility] Sodium 140 mmol/L N 133- [address] [place] [address] [phone] Potassium 4.1 mmol/L N 3.5-5.0 Chloride 103 mmol/L N 101-111 Co2 Carbon Dioxide 31 mmol/L N 22-32 Anion Gap 6 mmol/L N 2-11 Glucose 173 mg/dL High 70-100 Blood Urea Nitrogen 15 mg/dL N 6-24 Creatinine 1.07 mg/dL High 0.51-0.95 BUN/Creatinine Ratio 14.0 N 8-20 Calcium 9.8 mg/dL N 8.6-10.3 Egfr Non- 50.3 N >60 Egfr 64.6 N >60 15 1 SEE RESULT BELOW Name: ERIKA HANSNE : [address]: Samir Marcial MD Acct: [id number] Unit: [id number] AGE: 77 Location: ENDO Re11/07/18 SEX: F Status: REG REF SPEC: [id number] MONICA: 11/07/[address] [facility] [address]: Samir Marcial MD REQ: [id number] RECD: 11/07/18 STATUS: COMP OSMAN DR: Neena Moyer MD _ SOURCE: STOOL SPDESC: ORDERED: Occult Bl, Diag Procedure Result Reported Site Stool Occult Blood (1) Final 11/07/18- 1444 ML Stool Occult Blood Positive * ML - Main Lab . END OF REPORT DEPARTMENT OF PATHOLOGY, [address] [place] [address] Mckay Gleason M.D. Director [facility] # [id number] 2 Automobile Rental Clerk: [id number] 3 Test Performed by: [place] [address] 4 Because ethnic data is not always readily [...] 15-29 5 Kidney failure <15 (or dialysis) 5 Test Performed by: [facility] [place] [address] 6 Platelet count confirmed by estimate 7 Because ethnic data is not always readily [...] 15-29 5 Kidney failure <15 (or dialysis) 8 VOMITING BLOOD 9 Troponin-I testing on Plasma Separator Tubes (PST) has a known false positive rate of 0.20-0.40%. All positive troponins reflex immediate secondary confirmatory testing. 10 Because ethnic data is not always readily [...] 15-29 5 Kidney failure <15 (or dialysis) 11 Critical Result [id number] Called to [id number] at: 09:17:03 by:[id number] Read back by:[id number] 12 SEE RESULT BELOW Name: ERIKA HANSEN : [address]: Samir Marcial MD Acct: [id number] Unit: [id number] AGE: 77 Location: [facility] Re06/06/18 SEX: F Status: DEP REF SPEC: [id number] MONICA: 06/06/[address] [facility] [address]: Samir Marcial MD REQ: [id number] RECD: 06/06/18 STATUS: EULOGIO BAIG DR: Neena Moyer MD _ ORDERED: LEVEL 4 FINAL DIAGNOSIS Colon, mid transverse, biopsy: -- Tubular adenoma. -- No high grade dysplasia or malignancy. 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 Signed by and Reported on: Mckay Gleason MD 06/13 1544 END OF REPORT DEPARTMENT OF PATHOLOGY, [address] [place] [address] Mckay Gleason M.D. Director [facility] # [id number] 13 SOB 14 SEE RESULTS BELOW [id number] OP PC TRANSFUSED 05/28/18 2044 [id number] OP PC TRANSFUSED 05/29/18 1026 [id number] OP PC TRANSFUSED 05/29/18 1423 15 Because ethnic data is not always readily [...] Kidney failure <15 (or dialysis) Procedures Date Code Description Status 11/07/2018 42255 Esophagogastroduodenoscopy, diagnostic, incl brush/wash Completed if perfor 06/06/2018 [id number] Colonoscopy Completed 06/06/2018 55501 Colonoscopy W/ Ablation Of Tumor/Polyps/Lesion Inc. Completed Pre/Post Dila 06/06/2018 43177 Colonoscopy Flexible Remove Tumor/Polyp/Lesion Snare Completed Technique 05/30/2018 08424 Esophagogastroduodenoscopy, diagnostic, incl brush/wash Completed if perfor 04/21/2018 90345 ECHO Transthorasic Realtime 2D W Doppler & Color Flow Completed Hosp 04/21/2018 67004 EKG, Interpretation Only Completed 02/24/2018 39346 EKG, Interpretation Only Completed 02/23/2018 43563 EKG, Interpretation Only Completed 02/15/2018 62687 EKG Tracing & Interpretation Completed 05/10/2017 35260 Cath PLMT&NJX L Ventriculog Img S&I Completed 05/09/2017 03165 ECHO Transthorasic Realtime 2D W Doppler & Color Flow Completed Hosp 05/09/2017 25465 EKG, Interpretation Only Completed 05/08/2017 81895 EKG, Interpretation Only Completed 01/12/2017 10574 EKG Tracing & Interpretation Completed 11/23/2016 67081 ECHO Transthorasic Realtime 2D W Doppler & Color Flow Completed Hosp 11/22/2016 89479 EKG, Interpretation Only Completed 09/14/2016 98808 EKG, Interpretation Only Completed 06/17/2016 [id number] Colonoscopy Completed 01/06/2016 73627 EKG Tracing & Interpretation Completed 11/19/2014 75429 ECHO Transthorasic Realtime 2D W Doppler & Color Flow Completed Hosp 11/08/2014 57458 EKG Tracing & Interpretation Completed 11/02/2013 97501 EKG Tracing & Interpretation Completed 10/12/2012 47351 EKG Tracing & Interpretation Completed 08/27/2008 [id number] Colonoscopy Completed 06/16/2004 [id number] Colonoscopy Completed Encounters Type Date Location Provider Dx Diagnosis Office Visit 12/13/2018 [facility] Rol[facility] and Jairon Contreras MD E11.65 Type 2 diabetes 10:00a [facility] mellitus with hyperglycemia 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 hyprosm w/o nonket Hospitalists hyprgly-hypros coma ([facility]) E11.65 Type 2 diabetes mellitus with hyperglycemia Z79.4 alf (current) use of insulin J44.9 Chronic obstructive pulmonary disease, unspecified Office Visit 11/15/2018 [facility] Kevin Broderick E11.00 Type 2 diab w 9:00a tong Hough M.D. hyprosm w/o nonket Hospitalists hyprgly-hypros coma ([facility]) D64.9 Anemia, unspecified I50.9 Heart failure, unspecified J44.9 Chronic obstructive pulmonary disease, unspecified Office Visit 11/14/2018 [facility] Samir Prado R10.13 Epigastric pain 7:00a MD Aniket R74.8 Abnormal levels of other serum enzymes G47.10 Hypersomnia, unspecified Office Visit 11/14/2018 [facility] Marjorie E11.00 Type 2 diab w 8:58a Asstong huffman [facility], DO hyprosm w/o nonket Hospitalists hyprgly-hypros coma ([facility]) E11.65 Type 2 diabetes mellitus with hyperglycemia J98.11 Atelectasis Office Visit 11/14/2018 8:58a [facility]ens[facility] Jose J Lozano, K85.90 Acute pancreatitis M.D. without [facility] K76.6 Portal hypertension Office 10/02/2018 [facility] Gastroenterology Samir Prado E11.649 Type 2 diabetes Visit 2:45p MD Aniket mellitus with hypoglycemia without coma K92.2 Gastrointestinal hemorrhage, unspecified E66.01 Morbid (severe) obesity due to excess calories K75.81 Nonalcoholic steatohepatitis ([place]) D64.9 Anemia, unspecified Office 07/31/2018 [facility] Gastroenterology Samir Prado E11.649 Type 2 diabetes Visit 2:00p MD Aniket mellitus with hypoglycemia without coma K92.2 Gastrointestinal hemorrhage, unspecified E66.01 Morbid (severe) obesity due to excess calories D50.0 Iron deficiency anemia secondary to blood loss (chronic) Office Visit 07/05/2018 [facility] K92.2 Gastrointestinal 9:00a tong Hough MD hemorrhage, Hospitalists unspecified K75.81 Nonalcoholic steatohepatitis ([place]) I42.8 Other cardiomyopathies E11.649 Type 2 diabetes mellitus with hypoglycemia without coma E66.01 Morbid (severe) obesity due to excess calories Z68.41 Body mass index (BMI) 40.0-44.9, adult 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 Office Visit 07/04/2018 [facility] K92.2 Gastrointestinal 9:00a tong Hough MD hemorrhage, Hospitalists unspecified K75.81 Nonalcoholic steatohepatitis ([place]) I42.8 Other cardiomyopathies E11.9 Type 2 diabetes mellitus without complications E66.01 Morbid (severe) obesity due to excess calories Z79.4 alf (current) use of insulin Z68.41 Body mass index (BMI) 40.0-44.9, adult Office 07/04/2018 [facility] Gastroenterology Samir Prado D50.0 Iron deficiency Visit 7:00a MD Aniket anemia secondary to blood loss (chronic) Office 07/03/2018 [facility] K92.2 Gastrointestinal Visit 8:59a tong Hough Hospitalists MD Nati hemorrhage, unspecified K75.81 Nonalcoholic steatohepatitis ([place]) I42.8 Other cardiomyopathies E11.9 Type 2 diabetes mellitus without complications E66.01 Morbid (severe) obesity due to excess calories Z68.41 Body mass index (BMI) 40.0-44.9, adult 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 Matthew Romero, K92.0 Hematemesis tong Hough M.D. K75.81 Nonalcoholic steatohepatitis ([place]) E11.9 Type 2 diabetes mellitus without complications I42.8 Other cardiomyopathies E66.01 Morbid (severe) obesity due to excess calories Z68.41 Body mass index (BMI) 40.0-44.9, adult Office Visit 06/30/2018 [facility] [place] E11.65 Type 2 diabetes 8:56a tong Hough M.D. mellitus with Hospitalists hyperglycemia I50.9 Heart failure, unspecified Z79.4 alf (current) use of insulin [facility]2 G[facility] 8:43a tong Hough M.D. hemorrhage, Hospitalists unspecified I50.43 Acute on chronic combined systolic and diastolic hrt fail N18.2 Chronic kidney disease, stage 2 (mild) E11.22 Type 2 diabetes mellitus w diabetic chronic kidney disease Z79.4 alf (current) use of insulin J44.1 Chronic obstructive pulmonary disease w (acute) exacerbation [facility] D[facility]9 Anemia, 8:42a tong Hough MDonna. 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 Nakita Junior, D64.9 Anemia, 8:42a Asstong huffman M.D. unspecified Hospitalists I50.42 Chronic combined systolic and diastolic hrt fail N18.9 Chronic kidney disease, unspecified E11.22 Type 2 diabetes mellitus w diabetic chronic kidney disease J96.11 Chronic respiratory failure with hypoxia J44.9 Chronic obstructive pulmonary disease, unspecified Z79.4 alf (current) use of insulin Office Visit 05/28/2018 8:33a [facility] Sharmin Cornell, R07.9 Chest pain , Assoc,pc N.P. 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 Rajat Salgado R07.9 Chest pain, 9:19a Assoc,pc MD Lisa unspecified Hospitalists D64.9 Anemia, unspecified E11.9 Type 2 diabetes mellitus without complications Office Visit 04/20/2018 [facility] Walt R07.9 Chest pain, 9:18a Assoc,pc Fredrick, N.P. unspecified Hospitalists D64.9 Anemia, unspecified N18.9 Chronic kidney disease, unspecified E11.22 Type 2 diabetes mellitus w diabetic chronic kidney disease [facility]22 Chronic systolic 10:30a Assoc,tong Gonzalez MD (congestive) Hospitalists heart failure J96.11 Chronic respiratory failure with hypoxia D64.9 Anemia, unspecified N18.9 Chronic kidney disease, unspecified K74.60 Unspecified cirrhosis of liver E11.22 Type 2 diabetes mellitus w diabetic chronic kidney disease Z79.4 alf (current) use of insulin Office Visit 04/14/2018 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 Lula R07.9 Chest pain, 8:10a Assoc,tong Coats NP unspecified Hospitalists D64.9 Anemia, unspecified I50.22 Chronic systolic (congestive) heart failure E11.22 Type 2 diabetes mellitus w diabetic chronic kidney disease N18.2 Chronic kidney disease, stage 2 (mild) Office Visit 03/11/2018 8:08a [facility] Jennifer R07.9 Chest pain, Assoc,tong Carty DDanilo unspecified Hospitalists I50.22 Chronic systolic (congestive) heart failure E11.9 Type 2 diabetes mellitus without complications D64.9 Anemia, unspecified D69.6 Thrombocytopenia, unspecified E03.9 Hypothyroidism, unspecified 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 Kiki J96.02 Acute respiratory Assoc,tong Moore, DO failure with Hospitalists hypercapnia J96.01 Acute respiratory failure with hypoxia J44.1 Chronic obstructive pulmonary disease w (acute) exacerbation E66.9 Obesity, unspecified N18.3 Chronic kidney disease, stage 3 (moderate) E11.22 Type 2 diabetes mellitus w diabetic chronic kidney disease Office Visit 02/20/2018 12:34p [facility] Stacie J96.22 Acute and chronic Assoc,tong Lutz M.D. respiratory Hospitalists failure with hypercapnia I50.21 Acute systolic (congestive) heart failure J44.1 Chronic obstructive pulmonary disease w (acute) exacerbation E11.22 Type 2 diabetes mellitus w diabetic chronic kidney disease Office Visit 02/15/2018 8:00a [facility] Swapnil Romero I50.43 Acute on chronic Of Kike Horton M.D. combined systolic and diastolic hrt fail I50.9 Heart failure, unspecified R07.9 Chest pain, unspecified Office Visit 05/13/2017 11:20a [facility] Swapnil Romero R07.9 Chest pain, Of Kike Horton M.D. unspecified Office Visit 05/11/2017 2:56p [facility] Olivia Reveles I50.9 Heart failure, Of Kike Temple unspecified Office Visit 05/10/2017 8:08a [facility] Lj I50.43 Acute on chronic Assoc,SOFIA Nassar combined systolic Hospitalists and diastolic hrt fail G30.1 Alzheimer's disease with late onset E11.9 Type 2 diabetes mellitus without complications F02.80 Dementia in oth diseases classd elswhr w/o behavrl disturb Office Visit 05/09/2017 2:42p [facility] Swapnil Romero R07.9 Chest pain, Of Kike Horton M.D. unspecified I50.9 Heart failure, unspecified Office Visit 05/09/2017 8:06a [facility] Lj I50.43 Acute on Assoc,SOFIA Nassar chronic Hospitalists combined systolic and diastolic hrt fail G30.1 Alzheimer's disease with late onset E11.9 Type 2 diabetes mellitus without complications F02.80 Dementia in oth diseases classd elswhr w/o behavrl disturb Office Visit 05/08/2017 8:06a [facility] Lj I50.43 Acute on Assoc,SOFIA Nassar chronic Hospitalists combined systolic and diastolic hrt fail G30.1 Alzheimer's disease with late onset E11.9 Type 2 diabetes mellitus without complications F02.80 Dementia in oth diseases classd elswhr w/o behavrl disturb [facility] on 8:05a tong Hough II, M.D. chronic Hospitalists combined systolic and diastolic hrt fail G30.1 Alzheimer's disease with late onset E11.9 Type 2 diabetes mellitus without complications F02.80 Dementia in oth diseases classd elswhr w/o behavrl disturb Office Visit 03/11/2017 7:20a [facility] Sharmin Cornell, I26.99 Other pulmonary Assoc,pc N.P. embolism without Hospitalists acute cor pulmonale I50.43 Acute on chronic combined systolic and diastolic hrt fail E11.9 Type 2 diabetes mellitus without complications Z79.4 alf (current) use of insulin Office Visit 03/10/2017 7:19a [facility] Sharmin Cornell, I26.99 Other pulmonary Assoc,pc N.P. 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 I26.99 Other pulmonary 7:19a tong Hough II, M.D. 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 hypertension I42.9 Cardiomyopathy, unspecified Office Visit 11/23/2016 [facility] Satish H53.452 Other 2:42p Clinic MD Danita localized visual field defect, left eye E11.65 Type 2 diabetes mellitus with hyperglycemia I10 Essential (primary) hypertension Office 11/23/2016 [facility] H53.40 Unspecified Visit 1:26p Assoc,pc SOFIA Kim visual field Hospitalists defects E11.8 Type 2 diabetes mellitus with unspecified complications I10 Essential (primary) hypertension E78.5 Hyperlipidemia, unspecified Office 11/22/2016 [facility] H53.40 Unspecified Visit 1:25p Assoc,pc SOFIA Kim visual field Hospitalists defects E11.8 Type 2 diabetes mellitus with unspecified complications I10 Essential (primary) hypertension E78.5 Hyperlipidemia, unspecified Office Visit 11/22/2016 [facility] Jose Sharpe H53.452 Other 2:33p Clinic Maverick Rosen localized visual field defect, left eye E11.65 Type 2 diabetes mellitus with hyperglycemia I10 Essential (primary) hypertension Office Visit 11/21/2016 [facility] Walt H53.40 Unspecified 1:24p Assoc,pc Fredrick NAna visual field Hospitalists defects E11.8 Type 2 diabetes mellitus with unspecified complications I10 Essential (primary) hypertension E78.5 Hyperlipidemia, unspecified Office Visit 09/14/2016 7:30a [facility] Donna R06.02 Shortness of Assoc,pc Tamiko, FITTER MECH[employer]IC breath Hospitalists R07.9 Chest pain, unspecified E11.22 Type 2 diabetes mellitus w diabetic chronic kidney disease N18.3 Chronic kidney disease, stage 3 (moderate) Office Visit 09/13/2016 7:30a [facility] Sharmin Cornell, R06.02 Shortness of Assoc,pc N.P. breath Hospitalists R07.9 Chest pain, unspecified E11.22 Type 2 diabetes mellitus w diabetic chronic kidney disease Office Visit 03/09/2016 [facility] E11.01 Type 2 diabetes 1:16p Assoc,tong Mann, FITTER MECHANIC mellitus with Hospitalists hyperosmolarity with coma D50.9 Iron deficiency anemia, unspecified N18.3 Chronic kidney disease, stage 3 (moderate) I50.42 Chronic combined systolic and diastolic hrt fail Office Visit 03/08/2016 [facility] D50.9 Iron deficiency 1:16p Assoc,tong Mann, FITTER MECHANIC anemia, Hospitalists unspecified N18.3 Chronic kidney disease, stage 3 (moderate) I50.42 Chronic combined systolic and diastolic hrt fail E11.01 Type 2 diabetes mellitus with hyperosmolarity with coma Office 03/07/2016 [facility] E11.01 Type 2 diabetes Visit 1:15p tong Hough PA mellitus with Hospitalists hyperosmolarity with coma N18.3 Chronic kidney disease, stage 3 (moderate) I50.42 Chronic combined systolic and diastolic hrt fail D50.9 Iron deficiency anemia, unspecified Office 03/06/2016 [facility] N18.3 Chronic kidney Visit 1:14p Asstong huffman PA disease, stage Hospitalists 3 (moderate) D50.9 Iron deficiency anemia, unspecified I50.42 Chronic combined systolic and diastolic hrt fail E11.01 Type 2 diabetes mellitus with hyperosmolarity with coma Office Visit 01/06/2016 Zo[facility] Romero I42.9 Cardiomyopathy, 1:30p Cardiology Usama Horton M.D. 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 [facility] I10 Essential (primary) hypertension R60.0 Localized edema Office Visit 11/29/2014 2:30p [facility] Shaila Sykes, 425.4 Cardiomyopathy Other Of [facility] [place] Prim 401.9 Hypertension Unspec 250.00 Diabetes Mellitus W/O Compl Type II Or Unspec Controlled 782.3 Edema Office Visit 11/08/2014 3:00p Zoie Romero 425.4 Cardiomyopathy Other Cardiology Of Maverick Horton Prim Train Controller 401.9 Hypertension Unspec 786.05 Shortness Of Breath Office Visit 11/02/2013 12:45p Zoie Romero 425.4 Cardiomyopathy Other Cardiology Of Maverick Horton Prim Train Controller 401.9 Hypertension Unspec Office Visit 10/12/2012 12:30sania Romero 425.4 Cardiomyopathy Other Cardiology Of Maverick Horton Prim [facility] 401.9 Hypertension Unspec 250.00 Diabetes Mellitus W/O Compl Type II Or Unspec Controlled Plan of Treatment Future Appointment(s):02/14/2019 1:40 pm - Jairon Contreras MD at [facility]02/08/2019 3:15 pm - Samir Marcial MD at [facility] Gegrhhnckvjtedhe95/03/2019 - Jairon Contreras MDE11.65 Type 2 diabetes mellitus with hyperglycemiaInstructions:1. Reduce Humulin N to 25 units at bedtime. 2. Increase Humalog to 35 units with breakfast, 30 unitswith lunch and supper. 3. Your blood pressure is high and above goal of <130/90. 4. I recommend Jardiance 5mg daily if blood pressure is high, but you will need to adjust insulin if Jardiance is started. 5. Check blood glucose 4 times/daily. 6. Return in 6-8 weeks for a follow-up visit.Z79.4 alf (current) use of lwmeyrcI43.9 Heart failure, unspecified
--- OUTSIDE RECORDS SUMMARY | 2019-01-05 13:06 | XMS REPORT | Continuity of Care Document ---
:1940 External Reference #:[id number] Author Name Fern Velasquez Care Team Providers Name Role Phone Neena Moyer MD Primary Care Physician Unavailable Payers Date Identification Numbers Payment Provider Subscriber Effective: 2000 Policy Number: [id number] Medicare Erika Hansen PayID: [id number] [address] [place] [address] Effective: 2006 Policy Number: [id number] [employer] Erika Hansen Group Number: [id number] [address] PayID: [id number] [place] [address] Problems Active Problems Provider Date Primary cardiomyopathy [...] 02/21/2018 Chronic combined systolic and diastolic Rajat Damian Gonzalez MD Onset: heart failure Anemia Heather GonsalezO. Onset: 03/11/2018 Thrombocytopenic disorder Jennifer Carty D.O. Onset: 03/11/2018 Hypothyroidism Jennifer Carty D.O. Onset: 03/11/2018 Cirrhosis - non-alcoholic Saimr Marcial MD Onset: 12/05/2014 Note: micronodular contour [...] Use Denies Drug Use Smoking Status Reviewed: 12/13/18 Patient is a former smoked cigarettes for smoker 40 years, approximately 2 cartons per week (the last 6 years), and quit in 2001 Exercise Type/Frequency Does not exercise Allergies, Adverse Reactions, Alerts Active Allergies Reaction Severity Comments Date Captopril rash 11/02/2013 Medications Active Medications SIG Qnty Indications Ordering Date Provider Humulin N 30 units once 20ml Jairon Contreras MD 12/13/2018 100Unit/ML daily at bedtime Suspension Prilosec take 1 tab by ashlyn Prado 05/05/[address] mouth twice daily MD Aniket Oxycodone HCL 1/2 tabs by mouth Unknown 5mg Tablets every 4-6 hours as needed Humalog Kwikpen 30 units before Unknown each meal 3 times 100Unit/ML Solution daily Pen-Inject Nitroglycerin 1 tab sub lingual Unknown 0.3mg [...] Tablets Vital Signs Date Vital Result Comment 12/13/2018 9:37am Height 63 inches 5'3" Weight [...] Result H/L Range Note Stool Occult 11/07/2018 [facility] Stool Occult SEE RESULT 1 Blood Diag [address] Blood, [place] [address] [phone] Laboratory test 11/07/2018 [facility] Point of Care 312 mg/dL High 70-100 [address] [place] [address] [phone] Laboratory test 09/28/2018 [facility] B-Type 213 pg/mL High <= [address] [place] [address] Peptide BNP [phone] Erythropoietin 46.4 mIU/mL Abnormal 2.6 - 18.5 3 Basic Metabolic Panel 09/28/2018 [facility] Sodium 144 mmol/L N 135-[address] [place] [address] [phone] Potassium 3.7 mmol/L N 3.5-5.0 Chloride 107 mmol/L N 101-111 Co2 Carbon Dioxide 31 mmol/L N 22-32 Anion Gap 6 mmol/L N 2-11 Glucose 161 mg/dL High 70-100 Blood Urea Nitrogen 18 mg/dL N 6-24 Creatinine 0.82 mg/dL N 0.51-0.95 BUN/Creatinine Ratio 22.0 High 8-20 Calcium 8.6 mg/dL N 8.6-10.3 Egfr Non- 67.8 >60 Egfr 82.0 >60 4 CBC No Diff 09/28/2018 [facility] White Blood 5.3 10^3/uL N 3.5-10.[address] [place] [address] [phone] Red Blood Count 3.19 10^6/uL Low 3.70-4.87 Hemoglobin 8.0 g/dL Low 12.0-16.0 Hematocrit 26 % Low 33-41 Mean Corpuscular Volume 82 fL N 80-97 Mean Corpuscular Hemoglobin 25 pg Low 27-31 Mean Corpuscular HGB Conc 30 g/dL Low 31-36 Red Cell Distribution Width 17 % High 10.5-15 Platelet Count 146 10^3/uL Low 150-450 Mean Platelet Volume 10.1 fL N 7.4-10.4 Laboratory test 09/28/2018 [facility] Ferritin 172.0 ng/mL N 11-[address] [place] [address] [phone] Cell Morphology 07/31/2018 [facility] Polychromasia 1+ [address] [place] [address] [phone] Anisocytosis 2+ Laboratory test 07/31/2018 [facility] B-Type 282 pg/mL High <= [address] [place] [address] Peptide BNP [phone] Erythropoietin 44.9 mIU/mL Abnormal 2.6 - 18.5 5 CBC Auto Diff 07/31/2018 [facility] White Blood 6.4 10^3/uL N 3.5-10.[address] [place] [address] [phone] Red Blood Count 4.12 10^6/uL N 4.00-5.40 [...] Cells % 0.1 Basic Metabolic Panel 07/31/2018 [facility] Sodium 142 mmol/L N 135-[address] [place] [address] [phone] Potassium 3.5 mmol/L N 3.5-5.0 Chloride 103 mmol/L N 101-111 Co2 Carbon Dioxide 32 mmol/L N 22-32 Anion Gap 7 mmol/L N 2-11 Glucose 166 mg/dL High 70-100 Blood Urea Nitrogen 9 mg/dL N 6-24 Creatinine 0.84 mg/dL N 0.51-0.95 BUN/Creatinine Ratio 10.7 N 8-20 Calcium 8.4 mg/dL Low 8.6-10.3 Egfr Non- 65.9 >60 Egfr 79.8 >60 7 Laboratory test 07/31/2018 [facility] Ferritin 165.2 N 11-[address] ng/[place] [address] [phone] Laboratory test 06/30/2018 [facility] Troponin-I 0.01 ng/mL < 0.04 8, [address] (TnI) [place] [address] [phone] CBC Auto Diff 06/30/2018 [facility] White Blood 7.7 N 3.5- 10.[address] Count 10^3/[place] [address] [phone] Red Blood Count 3.28 10^6/uL Low 4.00-5.40 [...] Cells % 0.2 Comp Metabolic Panel 06/30/2018 [facility] Sodium 136 mmol/L N 135-[address] [place] [address] [phone] Potassium 4.7 mmol/L N 3.5-5.0 Chloride 99 [...] 605 mg/dL High 70-100 11 Laboratory 06/30/2018 [facility] Partial 28.9 N 26.0-36.3 test finding [address] [address] PTT [phone] Inr/Protime 06/30/2018 [facility] Inr 1.09 High 0.77-1.[address] [place] [address] [phone] Laboratory 06/06/2018 [facility] Surgical SEE RESULT 12 test finding [address] [place] [address] [phone] Type & Screen 05/28/2018 [facility] Patient Blood O Positive [address] [place] [address] [phone] Antibody Screen NEGATIVE Laboratory test 05/28/2018 [facility] Packed Cells SEE RESULTS [address] BELO <[place] [address] NOTE> [phone] Basic Metabolic 11/19/2014 [facility] Sodium 140 mmol/L N 133- [address] [place] [address] [phone] Potassium 4.1 mmol/L N 3.5-5.0 Chloride 103 [...] 15 1 SEE RESULT BELOW Name: ERIKA HANSEN: [address]: Samir Marcial MD Acct: [id number] Unit: [id number] AGE: 77 Location: ENDO Re11/07/18 SEX: F Status: REG REF SPEC: [id number] MONICA: 11/07/[address]: Samir Marcial MD REQ: [id number] RECD: 11/07/18 STATUS: JACOB BAIG DR: Neena Moyer MD _ SOURCE: STOOL SPDESC: ORDERED: Occult Bl, Diag Procedure Result Reported Site Stool Occult Blood (1) Final 11/07/18- 1444 ML Stool Occult Blood Positive * ML - Main Lab . END OF REPORT DEPARTMENT OF PATHOLOGY, [address] [place] [address] Mckay Gleason M.D. Director [facility] # [id number] 2 Instructional Support Assistant: [id number] 3 Test Performed by: [place] [address] 4 Because ethnic data is not always [...] <15 (or dialysis) 5 Test Performed by: [place] [address] 6 Platelet count confirmed by estimate 7 [...] dialysis) 11 Critical Result [id number] Called to [id number] at: 09:17:03 by:[email or web address] Read back by:[email or web address] 12 SEE RESULT BELOW Name: ERIKA HANSEN : [address]: Samir Marcial MD Acct: [id number] Unit: [id number] AGE: 77 Location: [facility] Re06/06/18 SEX: F Status: DEP REF SPEC: [id number] MONICA: 06/06/18- [facility] DR: Samir Marcial MD REQ: [id number] RECD: 06/06/18 STATUS: EULOGIO BAIG DR: Neena [...] 1544 END OF REPORT DEPARTMENT OF PATHOLOGY, [address] [place] [address] Mckay Gleason M.D. Director [facility] # [id number] 13 SOB 14 SEE RESULTS BELOW [id number] OP PC TRANSFUSED 05/28/18 2044 [id number] OP PC TRANSFUSED 05/29/18 1026 [id number] OP PC TRANSFUSED 05/29/18 1423 15 Because [...] dialysis) Procedures Date Code Description Status 11/07/2018 35392 Esophagogastroduodenoscopy, diagnostic, incl brush/wash Completed if perfor 06/06/2018 10068642 Colonoscopy Completed 06/06/2018 08413 Colonoscopy W/ Ablation Of Tumor/Polyps/Lesion Inc. Completed Pre/Post Dila 06/06/2018 54103 Colonoscopy Flexible Remove Tumor/Polyp/Lesion Snare Completed Technique 05/30/2018 83994 Esophagogastroduodenoscopy, diagnostic, incl brush/wash Completed if perfor 04/21/2018 73500 ECHO Transthorasic Realtime 2D W Doppler & Color Flow Completed Hosp 04/21/2018 65977 EKG, Interpretation Only Completed 02/24/2018 22901 EKG, Interpretation Only Completed 02/23/2018 12866 EKG, Interpretation Only Completed 02/15/2018 01184 EKG Tracing & Interpretation Completed 05/10/2017 16634 Cath PLMT&NJX L Ventriculog Img S&I Completed 05/09/2017 15028 ECHO Transthorasic Realtime 2D W Doppler & Color Flow Completed Hosp 05/09/2017 26395 EKG, Interpretation Only Completed 05/08/2017 77160 EKG, Interpretation Only Completed 01/12/2017 38271 EKG Tracing & Interpretation Completed 11/23/2016 02489 ECHO Transthorasic Realtime 2D W Doppler & Color Flow Completed Hosp 11/22/2016 07245 EKG, Interpretation Only Completed 09/14/2016 30766 EKG, Interpretation Only Completed 06/17/2016 49492441 Colonoscopy Completed 01/06/2016 74847 EKG Tracing & Interpretation Completed 11/19/2014 51943 ECHO Transthorasic Realtime 2D W Doppler & Color Flow Completed Hosp 11/08/2014 94237 EKG Tracing & Interpretation Completed 11/02/2013 20939 EKG Tracing & Interpretation Completed 10/12/2012 59662 EKG Tracing & Interpretation Completed 08/27/2008 80951025 Colonoscopy Completed 06/16/2004 60898728 Colonoscopy Completed Encounters Type Date Location Provider Dx Diagnosis Office Visit 11/16/2018 [facility], E11.00 Type 2 diab w 9:03a tong Hough M.D. 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 hyprosm w/o nonket Hospitalists hyprgly-hypros coma ([facility]) D64.9 Anemia, unspecified I50.9 Heart failure, unspecified J44.9 Chronic obstructive pulmonary disease, unspecified Office Visit 11/14/2018 [facility] Gastroenterology Samir Prado R10.13 Epigastric pain 7:00a MD Aniket R74.8 Abnormal levels of other serum enzymes G47.10 Hypersomnia, unspecified [facility] Type 2 diab w 8:58a tong Hough DO hyprosm w/o nonket Hospitalists hyprgly-hypros coma ([facility]) E11.65 Type 2 diabetes mellitus with hyperglycemia J98.11 Atelectasis Office Visit 11/14/2018 8:58a [facility] Jose J Lozano, K85.90 Acute pancreatitis M.D. without necrosis or infection, uns K76.6 Portal hypertension Office 10/02/2018 [facility] Gastroenterology Samir Prado E11.649 Type 2 diabetes Visit 2:45p MD Aniket mellitus with hypoglycemia without coma K92.2 Gastrointestinal hemorrhage, unspecified E66.01 Morbid (severe) obesity due to excess calories K75.81 Nonalcoholic steatohepatitis ([place]) D64.9 Anemia, unspecified Office 07/31/2018 [facility] Gastroenterology Samir Prado E11.649 Type 2 diabetes Visit 2:00p MD Aniket mellitus with hypoglycemia without coma K92.2 Gastrointestinal hemorrhage, unspecified E66.01 Morbid (severe) obesity due to excess calories D50.0 Iron deficiency anemia secondary to blood loss (chronic) Office Visit 07/05/2018 [facility] K92.2 Gastrointestinal 9:00a tong Hough MD hemorrhage, Hospitalists unspecified K75.81 Nonalcoholic steatohepatitis ([place]) I42.8 Other cardiomyopathies E11.649 Type 2 diabetes mellitus with hypoglycemia without coma E66.01 Morbid (severe) obesity due to excess calories Z68.41 Body mass index (BMI) 40.0-44.9, adult 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 Office Visit 07/04/2018 [facility] K92.2 Gastrointestinal 9:00a tong Hough MD hemorrhage, Hospitalists unspecified K75.81 Nonalcoholic steatohepatitis ([place]) I42.8 Other cardiomyopathies E11.9 Type 2 diabetes mellitus without complications E66.01 Morbid (severe) obesity due to excess calories Z79.4 half-way (current) use of insulin Z68.41 Body mass index (BMI) 40.0-44.9, adult Office 07/04/2018 [facility] Gastroenterology Samir Prado D50.0 Iron deficiency Visit 7:00a MD Aniket anemia secondary to blood loss (chronic) Office 07/03/2018 [facility] K92.2 Gastrointestinal Visit 8:59a tong Hough MD hemorrhage, unspecified K75.81 Nonalcoholic steatohepatitis ([place]) I42.8 Other cardiomyopathies E11.9 Type 2 diabetes mellitus without complications E66.01 Morbid (severe) obesity due to excess calories Z68.41 Body mass index (BMI) 40.0-44.9, adult Z79.4 half-way (current) use of insulin Office Visit 07/02/2018 [facility] Stephanie K92.2 Gastrointestinal 8:58a Assoc,tong Damian MD hemorrhage, Hospitalists unspecified K75.81 Nonalcoholic steatohepatitis ([place]) I42.8 Other cardiomyopathies E11.9 Type 2 diabetes mellitus without complications E66.01 Morbid (severe) obesity due to excess calories Z68.41 Body mass index (BMI) 40.0-44.9, adult Z79.4 half-way (current) use of insulin Office Visit 07/01/2018 8:58a [facility] Matthew Romero, K92.0 Hematemesis Asstong huffman M.D. K75.81 Nonalcoholic steatohepatitis ([place]) E11.9 Type 2 diabetes mellitus without complications I42.8 Other cardiomyopathies E66.01 Morbid (severe) obesity due to excess calories Z68.41 Body mass index (BMI) 40.0-44.9, adult Office Visit 06/30/2018 [facility] Davie E11.65 Type 2 diabetes 8:56a tong Hough M.D. mellitus with Hospitalists hyperglycemia I50.9 Heart failure, unspecified Z79.4 half-way (current) use of insulin [facility] 8:43a tong Hough M.D. 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 unspecified Hospitalists I50.43 Acute on chronic combined systolic and diastolic hrt fail N18.2 Chronic kidney disease, stage 2 (mild) E11.22 Type 2 diabetes mellitus w diabetic chronic kidney disease J96.11 Chronic respiratory failure with hypoxia J44.9 Chronic obstructive pulmonary disease, unspecified Z79.4 half-way (current) use of insulin Office Visit 05/29/2018 [facility] Nakita Junior, D64.9 Anemia, 8:42a Asstong huffman M.D. 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 unspecified Hospitalists D64.9 Anemia, unspecified N18.9 Chronic kidney disease, unspecified E11.22 Type 2 diabetes mellitus w diabetic chronic kidney disease Office Visit 04/15/2018 [facility] Rajat Salgado I50.22 Chronic systolic 10:30a Asstong huffman MD (congestive) Hospitalists heart failure J96.11 Chronic respiratory failure with hypoxia D64.9 Anemia, unspecified N18.9 Chronic kidney disease, unspecified K74.60 Unspecified cirrhosis of liver E11.22 Type 2 diabetes mellitus w diabetic chronic kidney disease Z79.4 half-way (current) use of insulin Office Visit 04/14/2018 [facility] Kiki I50.22 Chronic systolic 10:30a Assoc,tong Moore DO (congestive) heart Hospitalists failure J96.11 Chronic respiratory failure with hypoxia R07.9 Chest pain, unspecified D64.9 Anemia, unspecified E11.21 Type 2 diabetes mellitus with diabetic nephropathy N18.9 Chronic kidney disease, unspecified Z79.4 half-way (current) use of insulin Office Visit 03/12/2018 [facility] Lula R07.9 Chest pain, 8:10a Assoc,tong Coats NP unspecified Hospitalists D64.9 Anemia, unspecified I50.22 Chronic systolic (congestive) heart failure E11.22 Type 2 diabetes mellitus w diabetic chronic kidney disease N18.2 Chronic kidney disease, stage 2 (mild) Office Visit 03/11/2018 8:08a [facility] Jennifer R07.9 Chest pain, Assoc,tong Carty D.O. unspecified Hospitalists I50.22 Chronic systolic (congestive) heart failure E11.9 Type 2 diabetes mellitus without complications D64.9 Anemia, unspecified D69.6 Thrombocytopenia, unspecified E03.9 Hypothyroidism, unspecified Office Visit 02/24/2018 [facility] Rajat Salgado J96.02 Acute respiratory 12:36p Assoc,tong Gonzalez MD failure with Hospitalists hypercapnia J96.01 Acute respiratory failure with hypoxia J44.1 Chronic obstructive pulmonary disease w (acute) exacerbation I50.42 Chronic combined systolic and diastolic hrt fail E11.22 Type 2 diabetes mellitus w diabetic chronic kidney disease N18.3 Chronic kidney disease, stage 3 (moderate) Office Visit 02/23/2018 [facility] Rajat Salgado J96.01 Acute respiratory 12:35p Assoc,tong Gonzalez MD failure with Hospitalists hypoxia J44.1 Chronic obstructive pulmonary disease w (acute) exacerbation N18.3 Chronic kidney disease, stage 3 (moderate) E11.22 Type 2 diabetes mellitus w diabetic chronic kidney disease I50.42 Chronic combined systolic and diastolic hrt fail Office Visit 02/22/2018 12:35p [facility] Kiki J96.01 Acute respiratory Assoc,tong Moore DO failure with Hospitalists hypoxia J44.1 Chronic obstructive pulmonary disease w (acute) exacerbation I50.42 Chronic combined systolic and diastolic hrt fail N18.3 Chronic kidney disease, stage 3 (moderate) E11.22 Type 2 diabetes mellitus w diabetic chronic kidney disease Office Visit 02/21/2018 12:35p [facility] Kiki J96.02 Acute respiratory Assoc,pc Teresa, DO failure with Hospitalists hypercapnia J96.01 Acute respiratory failure with hypoxia J44.1 Chronic obstructive pulmonary disease w (acute) exacerbation E66.9 Obesity, unspecified N18.3 Chronic kidney disease, stage 3 (moderate) E11.22 Type 2 diabetes mellitus w diabetic chronic kidney disease Office Visit 02/20/2018 12:34p [facility] Stacie J96.22 Acute and chronic Assoc,tong Lutz M.D. respiratory Hospitalists failure with hypercapnia I50.21 Acute systolic (congestive) heart failure J44.1 Chronic obstructive pulmonary disease w (acute) exacerbation E11.22 Type 2 diabetes mellitus w diabetic chronic kidney disease Office Visit 02/15/2018 8:00a [facility] Swapnil Romero I50.43 Acute on chronic Of Kike Horton M.D. combined systolic and diastolic hrt fail I50.9 Heart failure, unspecified R07.9 Chest pain, unspecified Office Visit 05/13/2017 11:20a [facility] Swapnil Romero R07.9 Chest pain, Of Kike Horton M.D. unspecified Office Visit 05/11/2017 2:56p [facility] Olivia Reveles I50.9 Heart failure, Of Kike Temple unspecified Office Visit 05/10/2017 8:08a [facility] Lj I50.43 Acute on chronic Assoc,SOFIA Nassar combined systolic Hospitalists and diastolic hrt fail G30.1 Alzheimer's disease with late onset E11.9 Type 2 diabetes mellitus without complications F02.80 Dementia in oth diseases classd elswhr w/o behavrl disturb Office Visit 05/09/2017 2:42p [facility] Swapnil Romero R07.9 Chest pain, Of Kike Horton M.D. unspecified I50.9 Heart failure, unspecified Office Visit 05/09/2017 8:06a [facility] Lj I50.43 Acute on Assoc,SOFIA Nassar chronic Hospitalists combined systolic and diastolic hrt fail G30.1 Alzheimer's disease with late onset E11.9 Type 2 diabetes mellitus without complications F02.80 Dementia in oth diseases classd elswhr w/o behavrl disturb Office Visit 05/08/2017 8:06a [facility] Lj I50.43 Acute on Assoc,pc SOFIA Vu chronic Hospitalists combined systolic and diastolic hrt fail G30.1 Alzheimer's disease with late onset E11.9 Type 2 diabetes mellitus without complications F02.80 Dementia in oth diseases classd elswhr w/o behavrl disturb Office Visit 05/07/2017 [facility] Dhiraj Figueroa I50.43 Acute on 8:05a Assoc,pc Maverick GARDUNO chronic Hospitalists combined systolic and diastolic hrt fail G30.1 Alzheimer's disease with late onset E11.9 Type 2 diabetes mellitus without complications F02.80 Dementia in oth diseases classd elswhr w/o behavrl disturb Office Visit 03/11/2017 7:20a [facility] Sharmin Cornell, I26.99 Other pulmonary Assoc,pc N.P. embolism without Hospitalists acute cor pulmonale I50.43 Acute on chronic combined systolic and diastolic hrt fail E11.9 Type 2 diabetes mellitus without complications Z79.4 half-way (current) use of insulin Office Visit 03/10/2017 7:19a [facility] Sharmin Cornell, I26.99 Other pulmonary Assoc,pc N.P. 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 hypertension I42.9 Cardiomyopathy, unspecified Office Visit 11/23/2016 [facility] H53.452 Other 2:42p Clinic MD Danita localized visual field defect, left eye E11.65 Type 2 diabetes mellitus with hyperglycemia I10 Essential (primary) hypertension Office [facility] H[facility].40 Unspecified Visit 1:26p Assoc,pc SOFIA Kim visual field Hospitalists defects E11.8 Type 2 diabetes mellitus with unspecified complications I10 Essential (primary) hypertension E78.5 Hyperlipidemia, unspecified Office 11/22/2016 [facility] H53.40 Unspecified Visit 1:25p Assoc,pc SOFIA Kim visual field Hospitalists defects E11.8 Type 2 diabetes mellitus with unspecified complications I10 Essential (primary) hypertension E78.5 Hyperlipidemia, unspecified Office Visit 11/22/2016 [facility] Jose Sharpe H53.452 Other 2:33p Clinic Maverick Rosen localized visual field defect, left eye E11.65 Type 2 diabetes mellitus with hyperglycemia I10 Essential (primary) hypertension Office Visit 11/21/2016 [facility] Walt H53.40 Unspecified 1:24p Assoc,pc Fredrick, N.P. visual field Hospitalists defects E11.8 Type 2 diabetes mellitus with unspecified complications I10 Essential (primary) hypertension E78.5 Hyperlipidemia, unspecified Office Visit 09/14/2016 7:30a [facility] Donna R06.02 Shortness of Assoc,pc Tamiko, TRUST ADVISOR breath Hospitalists R07.9 Chest pain, unspecified E11.22 Type 2 diabetes mellitus w diabetic chronic kidney disease N18.3 Chronic kidney disease, stage 3 (moderate) Office Visit 09/13/2016 7:30a [facility] Sharmin Kraig, R06.02 Shortness of Assoc,pc N.P. breath Hospitalists R07.9 Chest pain, unspecified E11.22 Type 2 diabetes mellitus w diabetic chronic kidney disease Office Visit 03/09/2016 [facility] E11.01 Type 2 diabetes 1:16p Assoc,pc EZEQUIEL Mann mellitus with Hospitalists hyperosmolarity with coma D50.9 Iron deficiency anemia, unspecified N18.3 Chronic kidney disease, stage 3 (moderate) I50.42 Chronic combined systolic and diastolic hrt fail Office Visit 03/08/2016 [facility] D50.9 Iron deficiency 1:16p Assoc,pc Johnathan, TRUST ADVISOR anemia, Hospitalists unspecified N18.3 Chronic kidney disease, stage 3 (moderate) I50.42 Chronic combined systolic and diastolic hrt fail E11.01 Type 2 diabetes mellitus with hyperosmolarity with coma Office 03/07/2016 [facility] E11.01 Type 2 diabetes Visit 1:15p tong Hough PA mellitus with Hospitalists hyperosmolarity with coma N18.3 Chronic kidney disease, stage 3 (moderate) I50.42 Chronic combined systolic and diastolic hrt fail D50.9 Iron deficiency anemia, unspecified Office 03/06/2016 [facility] N18.3 Chronic kidney Visit 1:14p Assnathanael,SOFIA Lo disease, stage Hospitalists 3 (moderate) D50.9 Iron deficiency anemia, unspecified I50.42 Chronic combined systolic and diastolic hrt fail E11.01 Type 2 diabetes mellitus with hyperosmolarity with coma Office Visit 01/06/2016 Zoie Romero I42.9 Cardiomyopathy, 1:30p [facility] unspecified [facility] I10 Essential (primary) hypertension R60.0 Localized edema Office Visit 11/29/2014 2:30p [facility] Shaila Sykes, 425.4 Cardiomyopathy Other Of [facility] PA Prim 401.9 Hypertension Unspec 250.00 Diabetes Mellitus W/O Compl Type II Or Unspec Controlled 782.3 Edema Office Visit 11/08/2014 3:00p Zoie Romero 425.4 Cardiomyopathy Other [facility] Prim [facility] 401.9 Hypertension Unspec 786.05 Shortness Of Breath Office Visit 11/02/2013 12:45p [facility] 425.4 Cardiomyopathy Other [facility] Prim [facility] 401.9 Hypertension Unspec Office Visit 10/12/2012 12:30p Zoie Romero 425.4 Cardiomyopathy Other [facility] Prim [facility] 401.9 Hypertension Unspec 250.00 Diabetes Mellitus W/O Compl Type II Or Unspec Controlled Plan of Treatment Future Appointment(s):12/27/2018 10:40 am - Jairon Contreras MD at [facility]02/08/2019 3:15 pm - Samir Marcial MD at [facility] [id number]/19/2019 - Jairon Contreras MDE11.65 Type 2 diabetes mellitus with hyperglycemiaInstructions:1. Reduce all doses of insulin to 25 units. 2. If you experience a blood glucose less than 80 at anytime, reduce all doses of insulin by 5 units. 3. Record your blood glucose 4 times/day. 4. Return in2 weeks for a follow-up visit.Z79.4 half-way (current) use of puilbghW89.9 Heart failure, unspecified
--- NOTE | 2019-01-05 13:08 | ED ---
Shortness of Breath - HPI Summary HPI Summary: This pt is a 78 y/o female, accompanied by son Harshad and Alejandro, [facility] for SOB today. Pt reports she was getting ready for an appointment to see her PCP, Dr. Moyer, when she felt her breathing became heavier. She notes her SOB was worse while ambulating. Pt wears 2L of O2 when needed at baseline. Pt then states she began to have heaviness on her chest. She currently rates her chest pressure/heaviness 7/10 in severity. Pt usually takes nitroglycerin at home but did not not take one at home. However , EMS administered nitroglycerin en route and pt reports it made her symptoms worse. Pt states she can't take aspirin due to her hx of internal bleeding. Pt did take her antihypertensive medications today. Pt takes Oxycodone for her pain but did not take it today. She notes she only takes Oxycodone when she can't tolerate her pain. Patient reports she was last admitted to [facility] on 11/13/18 for hyperglycemia in the 800s and acute pancreatitis. She states she then saw Dr. Contreras, her cat breeder, who has her on low carb diet and changed her insulin from Lantus to Humalog. 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 Pt took her sugar today and it was 111 and EMS reported sugar today 177. Patient only had a banana to eat and a cup of coffee today. Vital signs while in room: HR is 69 bpm, BP is 180/80, O2 sat of 99% on 4 L NC of O2. Home Medications Medication Instructions Recorded Confirmed Type Bumetanide TAB* [Bumex 2 MG TAB*] 2 mg PO BID 07/16/13 01/05/19 History Terazosin CAP* [Hytrin CAP 5 MG*] 10 mg PO BEDTIME 07/16/13 01/05/19 History Carvedilol TAB* [Coreg TAB*] 25 mg PO BID 09/13/16 01/05/19 History Levothyroxine TAB* [Synthroid 25 25 mcg PO DAILY 09/13/16 01/05/19 History MCG TAB*] Potassium Chlor TAB* [Potassium 20 meq PO BID 09/13/16 01/05/19 History Chlor TAB 20 MEQ*] Simvastatin TAB(NF) [Zocor 20 MG 20 mg PO DAILY 09/13/16 01/05/19 History (NF)] Nystatin TOP POWDER* 1 applic TOPICAL BID PRN 10/11/16 01/05/19 History Triamcinolone 0.1% CREAM (NF) 1 applic TOPICAL DAILY PRN 10/11/16 01/05/19 History [Kenalog 0.1% Cream (NF)] Nitroglycerin TAB 0.3 MG* 0.3 mg SL Q5M PRN 05/08/18 01/05/19 History Albuterol HFA INHALER* [Ventolin 2 puff INH Q4H PRN 06/02/18 01/05/19 History HFA Inhaler*] Calcium Carbonate/Simethicone 1 tab PO DAILY PRN 09/07/18 01/05/19 History [Esme-Nebo Heartburn+Gas] Cyanocobalamin TAB* [Vitamin B12 1,000 mcg PO DAILY 10/02/18 01/05/19 History TAB*] Oxycodone HCl 5 mg PO Q6H PRN 12/21/18 01/05/19 History Insulin LISPRO* [HumaLOG*] 30 units SUBCUT BID 01/05/19 01/05/19 History Insulin LISPRO* [HumaLOG*] 35 units SUBCUT QAM 01/05/19 01/05/19 History Insulin NPH Human Isophane 25 units SUBCUT DAILY 01/05/19 01/05/19 History [Humulin N Kwikpen] Losartan TAB* [Cozaar TAB*] 50 mg PO DAILY 01/05/19 01/05/19 History Multivitamin [Multivitamins] 1 cap PO DAILY 01/05/19 01/05/19 History Omeprazole CAP (NF) [Prilosec CAP* 20 mg PO BID 01/05/19 01/05/19 History 20 MG] - History of Current Complaint Chief Complaint: EDChestPainROMI Time Seen by Provider: 01/05/19 13:02 Hx Obtained From: Patient Onset/Duration: Lasting Hours, Still Present Current Severity: Moderate Aggravating Factors: Nothing Alleviating Factors: Nothing Associated Signs & Symptoms: Chest Pain Unrelated to Cough - Allergy/Home Medications Allergies/Adverse Reactions: Allergies Allergy/AdvReac Type Severity Reaction Status Date / Time captopril Allergy Severe Hives Verified 12/21/18 16:07 Home Medications: Home Medications Insulin LISPRO* [HumaLOG*] 30 units SUBCUT BID 01/05/19 [History Confirmed 01/05] Insulin LISPRO* [HumaLOG*] 35 units SUBCUT QAM 01/05/19 [History Confirmed 01/05] Insulin NPH Human Isophane [Humulin N Kwikpen] 25 units SUBCUT DAILY 01/05/19 [ History Confirmed 01/05/19] Losartan TAB* [Cozaar TAB*] 50 mg PO DAILY 01/05/19 [History Confirmed 01/05/19] Multivitamin [Multivitamins] 1 cap PO DAILY 01/05/19 [History Confirmed 01/05/19 ] Omeprazole CAP (NF) [Prilosec CAP* 20 MG] 20 mg PO BID 01/05/19 [History Confirmed 01/05/19] PMH/Surg Hx/FS Hx/Imm Hx Endocrine/Hematology History: Reports: Hx Blood Transfusions, Hx Diabetes, Hx Thyroid Disease, Hx Anemia - chronic iron infusions Cardiovascular History: Reports: Hx Angina, Hx Congestive Heart Failure, Hx Coronary Artery Disease, Hx Hypercholesterolemia, Hx Hypertension, Other Cardiovascular Problems/Disorders - cardiomyopathy Denies: Hx Myocardial Infarction, Hx Pacemaker/ICD Respiratory History: Reports: Hx Asthma, Hx Chronic Obstructive Pulmonary Disease (COPD), Hx Sleep Apnea, Other Respiratory Problems/Disorders - emphysema GI History: Reports: Hx Cirrhosis, Hx Gastroesophageal Reflux Disease, Hx Gastrointestinal Bleed, Hx Hiatal Hernia - s/p repair, Other GI Disorders - HELICOBACTER INFECTION History: Reports: Hx Chronic Renal Failure - Stage 3, Hx Renal Disease, Other Problems/Disorders - CKD stage 3 Musculoskeletal History: Reports: Hx Arthritis, Hx Back Problems, Other Musculoskeletal History - spinal stenosis Sensory History: Reports: Hx Cataracts - surgery with implants bilat eyes 96, Hx Contacts or Glasses - reading Denies: Hx Deafness, Hx Hearing Aid Opthamlomology History: Reports: Hx Cataracts - surgery with implants bilat eyes 96, Hx Contacts or Glasses - reading Neurological History: Reports: Other Neuro Impairments/Disorders - vertigo Psychiatric History: Reports: Hx Anxiety, Hx Depression, Other Psychiatric Issues/Disorders - PT REPORTS"STRESS" AND SAYS HER MD GAVE HER A MED FOR IT, UNSURE WHAT Denies: Hx Panic Disorder - Surgical History Surgical History: Yes Surgery Procedure, Year, and Place: HERNIA. HYSTERECTOMY. CATERACTS. CARPAL TUNNEL. CYSTS REMOVED FROM BILATERAL ARMPITS. RTC RT. LT FOOT SURGERY - Immunization History Date of Tetanus Vaccine: > 10 yers Date of Influenza Vaccine: [id number] Infectious Disease History: No Infectious Disease History: Denies: Hx of Known/Suspected MRSA, Traveled Outside the [place] in Last 30 Days - Family History Known Family History: Positive: Diabetes, Other - Yes - CHF (Mother) - Social History Alcohol Use: None Hx Substance Use: No Substance Use Type: Reports: None Hx Tobacco Use: Yes Smoking Status (MU): Former Smoker Have You Smoked in the Last Year: No Review of Systems Negative: Fever Positive: Chest Pain Positive: Shortness Of Breath All Other Systems Reviewed And Are Negative: Yes Physical Exam - Summary Physical Exam Summary: Appearance: Ill-appearing, moderate chest discomfort, Obese, Comfortable Skin: Warm, color reflects adequate perfusion, dry Head: Normal Head/Face inspection, atraumatic Eyes: Conjunctiva clear ENT: Normal inspection Neck: Supple, no nodes, no JVD Respiratory: Lungs clear, normal breath sounds, no respiratory distress Cardio: RRR, No murmur, pulses normal, brisk capillary refill Abdomen: Soft, nontender, protruding abdomen Bowel sounds: Present Musculoskeletal: Strength Intact/ROM intact, no calf tenderness, no edema. Psychological: Normal Neuro: Alert, muscle tone normal, no focal deficit Triage Information Reviewed: Yes Vital Signs On Initial Exam: Initial Vitals Temp Pulse Resp BP Pulse Ox 98.4 F 77 16 187/76 99 01/05/19 12:56 01/05/19 12:56 01/05/19 12:56 01/05/19 12:56 01/05/19 12:56 Vital Signs Reviewed: Yes Diagnostics - Vital Signs Vital Signs Temp Pulse Resp BP Pulse Ox 01/05/19 12:56 98.4 F 77 16 187/76 99 - Laboratory Result Diagrams: 01/05/19 13:42 01/05/19 13:42 Lab Statement: Any lab studies that have been ordered have been reviewed, and results considered in the medical decision making process. - Radiology Chest XR Radiology Interpretation Completed By: Radiologist Summary of Radiographic Findings: IMPRESSION: Small right pleural effusion with right basilar atelectasis versus consolidation. Recommend follow-up until resolution to exclude underlying pulmonary parenchymal pathology. Dr. Restrepo has reviewed this report. Re-Evaluation - Re-Evaluation First Eval Re-Evaluation Time: 16:12 Comment: Blood pressure is 176/66. Heart rate is 76 bpm. Second Eval Re-Evaluation Time: 17:13 Comment: Blood pressure in 156/61. Course/Dx - Course Assessment/Plan: pt is a 78 y/o female, accompanied by son Harshad and Alejandro, presenting to [facility] via EMS for SOB and chest pressure/heaviness today. Pts medications reviewed this visit. Nurses notes reviewed. Allergies noted. High blood pressure noted. Blood work was obtained. Chest XR shows small right pleural effusion with right basilar atelectasis versus consolidation. Recommend follow-up until resolution to exclude underlying pulmonary parenchymal pathology. In the ED course the pt was given nitroglycerin, oxycodone. No aspirin given due to hx of internal bleeding. Discussed the case with Dr. Perry, hospitalist, who accepted the pt for admission. - Diagnoses Provider Diagnoses: Chest pain, Dyspnea, Anemia, Thrombocytopenia - Physician Notifications Discussed Care of Patient With: Chapincito Perry - hospitalist Time Discussed With Above Provider: 18:28 Instructed by Provider To: Admit As Inpatient Discharge - Sign-Out/Discharge Documenting (check all that apply): Patient Departure - Admit to [facility] Patient Received Moderate/Deep Sedation with Procedure: No - Discharge Plan Condition: Stable Disposition: ADMITTED TO [facility] Referrals: Neena Moyer MD [Primary Care Provider] - - Attestation Statements Document Initiated by Scribe: Yes Documenting Scribe: Shannan Nielson Provider For Whom Scribe is Documenting (Include Credential): Keli Restrepo MD Scribe Attestation: Shannan Benitez scribed for Keli Restrepo MD on 01/05/19 at 1907.
[2019-01-05 13:55] LABS: INR 1.04 (0.82-1.09)
[2019-01-05 14:01] LABS: ABS Basophils 0.1 10^3/ul (0-0.2); ABS Eosinophils 0.3 10^3/ul (0-0.6); ABS Lymphocytes 0.8 10^3/ul (1.0-4.8); ABS Monocytes 0.7 10^3/ul (0-0.8); ABS Neutrophils 3.9 10^3/ul (1.5-7.7); Eosinophil % 5.6 %; Hematocrit 32 % (35-47); Hemoglobin 10.2 g/dL (12.0-16.0); Lymphocyte % 14.3 %; Mean Corpuscular HGB Conc 31 g/dL (31-36); Mean Corpuscular Hemoglobin 25 pg (27-31); Mean Corpuscular Volume 81 fL (80-97); Mean Platelet Volume 9.9 fL (7.4-10.4); Platelet Count 129 10^3/uL (150-450); Red Blood Count 4.03 10^6 /uL (3.70-4.87); Red Cell Distribution Width 18 % (10-15); White Blood Count 5.7 10^3/uL (3.5-10.8)
[2019-01-05] MEDS ORDERED: Nitroglycerin TAB 0.4 MG* 0.4 MG TAB SL ONE (14:10)
[2019-01-05] MEDS ORDERED: oxyCODONE TAB* 5 MG TAB PO ONE (14:14)
[2019-01-05 14:28] LABS: Albumin 3.1 g/dL (3.2-5.2); Albumin/Globulin Ratio 0.8 (1-3); BUN/Creatinine Ratio 19.2 (8-20); Calcium 8.9 mg/dL (8.6-10.3); EGFR African American 93.5 (>60); EGFR Non-African American 77.3 (>60); Globulin 3.7 g/dL (2-4); Potassium 3.7 mmol/L (3.5-5.0); Total Bilirubin 0.6 mg/dL (0.2-1.0); Total Protein 6.8 g/dL (6.4-8.9)
[2019-01-05 14:30] LABS: Troponin I 0.02 ng/mL (<0.04)
[2019-01-05] MEDS ORDERED: Nystatin TOP POWDER* 15 GM BTL TOPICAL PRN (19:35)
[2019-01-05] MEDS ORDERED: Nitroglycerin TAB 0.3 MG* 0.3 MG TAB SL PRN (19:35)
[2019-01-05] MEDS ORDERED: oxyCODONE TAB* 5 MG TAB PO PRN (19:35)
[2019-01-05] MEDS ORDERED: Albuterol HFA INHALER* 8 gm MDI INH PRN (19:35)
[2019-01-05] MEDS ORDERED: Triamcinolone 0.025% OINT * 15 GM TUBE TOPICAL PRN (19:35)
[2019-01-05] MEDS ORDERED: hydrALAZINE IV* 20 MG/ML VIAL IV SLOW PU PRN (19:45)
[2019-01-05 19:54] LABS: C Reactive Protein 3.77 mg/L (<8.01); Magnesium 1.7 mg/dL (1.9-2.7)
[2019-01-05] MEDS ORDERED: Dextrose 50% Syringe 50 ML* 25 GM/50 ML SYRINGE IV PUSH PRN (20:05)
[2019-01-05] MEDS ORDERED: Terazosin CAP* 5 MG PO SCH (21:00)
[2019-01-05] MEDS ORDERED: Atorvastatin* 80 MG TAB PO ONE (21:00)
[2019-01-05] MEDS: Potassium Chlor TAB* 20 MEQ TAB.ER PO SCH (21:44)
[2019-01-05] MEDS: Bumetanide TAB* 2 MG PO SCH (21:44)
[2019-01-05] MEDS: Insulin LISPRO* 1 UNITS UNIT SUBCUT SCH (21:45)
[2019-01-05] MEDS: Carvedilol TAB* 25 MG PO SCH (21:45)
--- NOTE | 2019-01-05 23:00 | HP ---
HISTORY AND PHYSICAL: DATE OF ADMISSION: 01/05/19 PRIMARY CARE PHYSICIAN: Dr. Neena oMyer. OUTPATIENT RETOUCHER: Dr. Swapnil Horton. OUTPATIENT FLOOR DIRECTOR: Dr. Marcial. ADMITTING PROVIDER: Chapincito Perry MD CHIEF COMPLAINT: Chest pressure and shortness of breath. HISTORY OF PRESENT ILLNESS: Erika Hansen is a 78-year-old female with past medical history of insulin-dependent diabetes mellitus, morbid obesity, portal hypertensive gastropathy, esophageal varices, duodenal AVM, peptic ulcer disease , nonischemic cardiomyopathy with EF 45% to 50% diastolic dysfunction, COPD, on intermittent p.r.n. oxygen, hypertension, chronic kidney disease stage III, iron deficiency anemia, spinal stenosis, hyperlipidemia, hypothyroidism, diabetic neuropathy. She also has history of HUERTA. She was in her normal state of health, but had not taken her morning Bumex 2 mg b.i.d. or spironolactone 50 b.i.d. Because, she was about to go to her doctor's office with Dr. Moyer, she developed shortness of breath first for about 10 to 15 minutes and developed substernal chest pressure 5/10, had decided to present to the [facility] emergency room. With EMS, she got nitroglycerin, which actually worsened her pain into 7/10. She was not given aspirin given history of GI bleeding. Her initial troponins were negative and her EKG demonstrated some T-wave inversions in I and aVL and some flattening in V5 through V6. She was referred to hospitalist service for ACS rule out. Her chest x-ray demonstrated a small right pleural effusion, atelectasis versus consolidation. Of note, she gets very short of breath or has significant back pain just with standing for 2 to 3 minutes at baseline. She uses a cane or walker. Denies any recent falls. No recent fevers, abdominal pain, coughing. She does not know her dry weight. She is scheduled to see Dr. Horton annually next in February 2019. PAST MEDICAL HISTORY: Insulin-dependent diabetes mellitus, HUERTA, duodenal AVMs , esophageal varices, portal hypertensive gastropathy, peptic ulcer disease, nonischemic cardiomyopathy, ejection fraction 45% to 50% with diastolic dysfunction, hypertension, COPD with p.r.n. oxygen use, chronic kidney disease stage III, iron deficiency anemia, spinal stenosis, hyperlipidemia, hypothyroidism, diabetic neuropathy, and arthritis. MEDICATIONS: Home medications include: 1. Humalog 30 units at lunch and dinner and 35 units with breakfast and then Humulin-N 25 units at bedtime. 2. Oxycodone 5 mg p.o. q.6 hours p.r.n. 3. Nitroglycerin 0.3 mg sublingual q.5 minutes p.r.n. 4. Multivitamin 1 capsule p.o. daily. 5. Cyanocobalamin 1000 mcg p.o. daily. 6. Calcium carbonate 1 tab p.o. daily p.r.n. 7. Albuterol HFA inhaler 2 puffs inhaled q.4 hours p.r.n. 8. Triamcinolone 0.1% topical daily. 9. Nystatin topical powder 1 topical b.i.d. 10. Omeprazole 20 mg p.o. b.i.d. 11. Losartan 50 mg p.o. daily. 12. Simvastatin 20 mg daily. 13. Potassium chloride 20 mEq p.o. b.i.d. 14. Levothyroxine 25 mcg p.o. daily. 15. Bumex 2 mg p.o. b.i.d. 16. Terazosin 10 mg p.o. at bedtime. 17. Carvedilol 25 mg p.o. b.i.d. 18. Spironolactone 50 mg p.o. b.i.d. ALLERGIES: CAPTOPRIL, rash. FAMILY HISTORY: Her mother had diabetes, heart disease, and dementia. SOCIAL HISTORY: The patient is a former smoker of 25 years 3 packs per day, quit in 2001, 75 pack years. She denies any significant alcohol use other than socially in her 30s. She desires to be a DNR/DNI. 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 Her Alejandro Hansen and daughter Zulma [facility] are her medical surrogates. Denies drug use. REVIEW OF SYSTEMS: A complete 14-point review of systems negative except as per HPI. She denies any blood per bowel, hematemesis, or hemoptysis. She denies any increase in girth in her stomach. PHYSICAL EXAMINATION GENERAL APPEARANCE: No acute distress. VITAL SIGNS: Temperature 98.4, pulse rate 70, respiratory rate 16 to 30, satting 97% to 100% on 4 L, blood pressure initially 187/76, currently 201/87. HEENT: Normocephalic, atraumatic. Pupils equally round and reactive to light. Extraocular motions intact. No scleral icterus. LUNGS: There is decreased breath sounds on the right base a third of the way up. No rhonchi or rales. CARDIOVASCULAR: Regular rate and rhythm. No murmurs, rubs, or gallops. ABDOMEN: Soft, nontender, but very distended. EXTREMITIES: Warm, well perfused. No peripheral edema. NEUROLOGIC: Tank Refinisher strength 5/5. Cranial nerves II through XII intact. Moving lower extremities. Sensation is intact to light touch. SKIN: No lesions. No rashes. DIAGNOSTIC STUDIES/LAB DATA: White count 5.7, hemoglobin 10.2, hematocrit 32, platelets 129, MCV 81. INR 1.04. Sodium 143, potassium 3.7, chloride 105, carbon dioxide 35, BUN 14, creatinine 0.73, glucose 69, calcium 8.9, total bili 0.6, AST 32, ALT 25, alk phos 142. Troponin 0.02, 0.01 and now 0.01 for the third. Albumin 3.1. X-ray demonstrated small right pleural effusion with right basilar atelectasis versus consolidation. Recommended followup until resolution to exclude underlying pulmonary parenchymal pathology. EKG demonstrated normal sinus rhythm, normal axis, heart rate 69. There are Qs in III, T-wave inversions in I and aVL which seemed new, T-wave flattening in V5 through V6 and biphasic in V1 and V2. There is some early repolarization in V1 and V2 which seems chronic. ASSESSMENT AND PLAN: Erika Hansen is a 78-year-old female with past medical history of chronic obstructive pulmonary disease, insulin-dependent diabetes mellitus, nonischemic cardiomyopathy with last EF 45% to 50% back in March 2018, presenting with substernal chest pressure 5/10 and hypertensive urgency. Her third troponin has just resulted. She is being admitted to hospitalist service for acute coronary syndrome rule out and control of her blood pressures. She notably did not take her Bumex or spironolactone this morning in anticipation of going to her doctor's office for fear of uncontrolled urination. I am giving her these doses now and repeat giving her Coreg 25 mg now, putting her on hydralazine 10 mg q.2 hours p.r.n. for systolic blood pressure above 180. Consideration to add Imdur possibly in the morning. Nitroglycerin did not relieve her chest pressure and in fact made it worse. Reassuringly, she has had a completely clean left heart catheterization back on 05/10/17. I suspect her chest pressure is likely related to her hypertension and possibly related to the small right pleural effusion versus consolidation. She has no fevers. I am giving her atorvastatin 80 mg and continuing sublingual nitroglycerin tab 0.3 mg sublingual q.5 minutes p.r.n., consideration for nitro patch or ointment. We will repeat EKG in the morning or p.r.n. before that. For her insulin-dependent mellitus, last A1c was 11.9 back in 11/13/18 when she was admitted for hyperosmolar hyperglycemic state, but has since had post scale changes to her insulin regimen and followed by Dr. Houston. She reports her regular fasting and preprandial blood sugars usually run between 70 and 80, highest is actually 115, today it was 177 with EMS. We will continue point-of- care testing q.a.c. and q.h.s. and putting her on a sliding scale insulin high dose. Given her glucose here at presentation of 69, continue just on sliding scale insulin and monitor overnight to back long acting. For history of chronic kidney disease stage III, it is actually improved today from previous baseline, GFR is actually up to 93.5. She is a DNR/DNI. She can eat a heart healthy, carbohydrate consistent diet. We will get Physical Therapy to work with her. Medical surrogate is her Alejandro Hansen [id number]/[facility] #: [id number] WENDY
[2019-01-06] MEDS ORDERED: Levothyroxine TAB* 25 MCG TAB PO SCH (06:00)
[2019-01-06 06:14] LABS: ABS Basophils 0.1 10^3/ul (0-0.2); ABS Eosinophils 0.2 10^3/ul (0-0.6); ABS Lymphocytes 0.6 10^3/ul (1.0-4.8); ABS Monocytes 0.3 10^3/ul (0-0.8); ABS Neutrophils 2.8 10^3/ul (1.5-7.7); Eosinophil % 5.8 %; Hematocrit 29 % (35-47); Hemoglobin 9.3 g/dL (12.0-16.0); Lymphocyte % 15.4 %; Mean Corpuscular HGB Conc 32 g/dL (31-36); Mean Corpuscular Hemoglobin 26 pg (27-31); Mean Corpuscular Volume 80 fL (80-97); Mean Platelet Volume 10.1 fL (7.4-10.4); Platelet Count 104 10^3/uL (150-450); Red Blood Count 3.59 10^6 /uL (3.70-4.87); Red Cell Distribution Width 17 % (10-15)
[2019-01-06 06:28] LABS: BUN/Creatinine Ratio 21.9 (8-20); Calcium 8.3 mg/dL (8.6-10.3); EGFR African American 93.5 (>60); EGFR Non-African American 77.3 (>60); Potassium 3.8 mmol/L (3.5-5.0)
[2019-01-06] MEDS: Insulin LISPRO* 1 UNITS UNIT SUBCUT SCH ×2 (08:34→12:00)
[2019-01-06] MEDS: Potassium Chlor TAB* 20 MEQ TAB.ER PO SCH (08:35)
[2019-01-06] MEDS: Carvedilol TAB* 25 MG PO SCH (08:35)
[2019-01-06] MEDS: Bumetanide TAB* 2 MG PO SCH (08:38)
[2019-01-06] MEDS ORDERED: Pantoprazole TAB * 40 MG TAB PO SCH (09:00)
[2019-01-06] MEDS ORDERED: Cyanocobalamin TAB* 500 MCG PO SCH (09:00)
[2019-01-06] MEDS ORDERED: Losartan TAB* 25 MG PO SCH (09:00)
[2019-01-06] MEDS ORDERED: Insulin LISPRO* 1 UNITS UNIT SUBCUT ONE ×2 (11:57→13:00)
[2019-01-06] MEDS ORDERED: Dextrose 50% Syringe 50 ML* 25 GM/50 ML SYRINGE IV PUSH PRN (11:57)
[2019-01-06 13:14] VITALS: BP 153/57
--- NOTE | 2019-01-08 06:37 | DS ---
DISCHARGE SUMMARY: DATE OF ADMISSION: 01/05/19 DATE OF DISCHARGE: 01/06/19 ADMITTING PROVIDER: Chapincito Perry MD ATTENDING PHYSICIAN ON DAY OF DISCHARGE: Chapincito Perry MD PRIMARY CARE PROVIDER: Neena Moyer MD OUTPATIENT DIRECTOR OF CHANNEL MARKETING: Swapnil Horton MD OUTPATIENT CHILDCARE ADMINISTRATOR: Dr. Marcial. CHIEF COMPLAINT: Chest pressure and shortness of breath. PRINCIPAL DIAGNOSIS: Acute coronary syndrome ruled out - hypertensive urgency. HISTORY OF PRESENT ILLNESS AND HOSPITAL COURSE: Erika Hansen is a 78-year- old female with past medical history of insulin-dependent diabetes mellitus ( until recently poorly controlled); morbid obesity; portal hypertensive gastropathy; esophageal varices; duodenal AVM; peptic ulcer disease; nonischemic cardiomyopathy (EF 45% to 50% with diastolic dysfunction); COPD, on intermittent oxygen as needed; hypertension; chronic kidney disease, stage 3; iron deficiency anemia; spinal stenosis; hyperlipidemia; hypothyroidism; diabetic neuropathy; and HUERTA. Please see H and P of Dr. Chapincito Perry for full details, but briefly, she had been scheduled to see her primary care physician on the morning of admission, and in order to prevent being incontinent of urine, she skipped her Bumex 2 mg b.i.d. (a.m. dose ) as well as spironolactone 50 mg b.i.d. (a.m. dose). It was a somewhat hot and humid day and she developed shortness of breath (this is not uncommon for her) for 10 to 15 minutes prior and development of a substernal chest pressure 5 /10. She got nitroglycerin with EMS that actually worsened her pain to a 7/10. She was not given aspirin given her history of GI bleeding. Her initial troponins were negative and EKG demonstrated some T wave inversions in I and aVL and some flattening in V5 through V6, and therefore, she was referred to the hospitalist service for ACS rule out given her comorbidities. Her chest x- ray also demonstrated a small right pleural effusion, atelectasis versus consolidation. Her baseline mobility and functional status is quite limited as she will get significant shortness of breath and/or back pain just with 2 to 3 minutes of standing at the sink. Her troponins were trended and the third one came back negative. Her morning EKG was again with ST elevations and depressions. Of note, her initial blood pressures on presentation to the emergency room were 187/76 and increased to a high of 201/87. She was restarted on her diuretics, and on hospital day #2, blood pressures were 153 to 160 systolically. Her chest pressure had resolved around the time of going up to the floor without further intervention. Given the fact that she has a history of completely clean coronary catheterization (left) in 2017, just 2 years ago, it was thought that her chest pressure was likely related to her hypertensive urgency and underlying angina. Nevertheless, she is recommended to follow up with Dr. Horton, get an outpatient nuclear stress test (it was of note on Tuesday when she was discharged, she would have had to stay another 48 hours to get an inpatient stress test) along with a repeat echocardiogram. Of note, she reported that her blood sugar control has been much better since changing her regimen with Dr. Contreras, although she also had a fairly tight control with most readings in the 70s and she presented with a glucose of 69, therefore was not continued on all her insulin regimen, but utilized mostly sliding scale insulin with sugars in the 150s. Her LDL was 102. Her HDL was 68. BNP was 238 and A1c was 8.8 down from 11.9 on 11/13/18. DISCHARGE MEDICATIONS: Include: 1. Albuterol 2 puffs inhaled q.4 hours p.r.n. 2. Bumex 2 mg p.o. b.i.d. 3. Calcium carbonate/simethicone 1 tab p.o. daily p.r.n. 4. Carvedilol 25 mg p.o. b.i.d. 5. Cyanocobalamin 1000 mcg p.o. daily. 6. Lispro 30 units at lunch and dinner and 35 units before breakfast. 7. Humulin N 25 units at nighttime. 8. Levothyroxine 25 mcg p.o. daily. 9. Losartan 50 mg p.o. daily. 10. Multivitamin 1 capsule p.o. daily. 11. Nitroglycerin 0.3 mg sublingual q.5 minutes p.r.n. 12. Nystatin topical powder 1 application topical b.i.d. 13. Omeprazole 20 mg p.o. b.i.d. 14. Oxycodone 5 mg p.o. q.6 hours p.r.n. 15. Potassium chloride 20 mEq p.o. b.i.d. 16. Simvastatin 20 mg p.o. daily. 17. Spironolactone 50 mg p.o. b.i.d. 18. Terazosin 10 mg p.o. at bedtime. 19. Triamcinolone 0.1% cream topical daily p.r.n. DISCHARGE DIET: Heart healthy, carbohydrate consistent, unchanged. FOLLOWUP: Please follow up with Dr. Horton within next [address] Moyer within the next 10 days. I do recommend that she get an outpatient nuclear stress test and echocardiogram. She was asked to start recording her blood pressures in the log book and take to these appointments. DISPOSITION: Home. CONDITION: Improved. TIME SPENT ON DISCHARGE: 40 minutes. [id number]/CPS #: [id number] WENDY
== END 2019-01-06 13:30 | disposition home or self-care (01) ==
LOC: ED 12:54 → MEDTELE 19:12
PROVIDERS: ADMIT Internal Medicine; ATTEND Internal Medicine
DX: I16.0 Hypertensive urgency (principal); I12.9 Hypertensive chronic kidney disease with stage 1 through stage 4 chronic kidney disease, or unspecified chronic kidney disease; E11.22 Type 2 diabetes mellitus with diabetic chronic kidney disease; N18.3 Chronic kidney disease, stage 3 (moderate); R06.02 Shortness of breath; R07.89 Other chest pain; Z79.899 Other long term (current) drug therapy; Z79.4 Long term (current) use of insulin; E66.01 Morbid (severe) obesity due to excess calories; I85.00 Esophageal varices without bleeding; K27.9 Peptic ulcer, site unspecified, unspecified as acute or chronic, without hemorrhage or perforation; I42.9 Cardiomyopathy, unspecified; D50.9 Iron deficiency anemia, unspecified; M48.00 Spinal stenosis, site unspecified; E78.5 Hyperlipidemia, unspecified; E03.9 Hypothyroidism, unspecified; E11.40 Type 2 diabetes mellitus with diabetic neuropathy, unspecified; M19.90 Unspecified osteoarthritis, unspecified site; Z87.891 Personal history of nicotine dependence
CPT/HCPCS: 36415; 71045; 80048; 80053; 80061; 83036; 83735; 83880; 84484; 85025; 85610; 86140; 93005; 96374; 99285; A9270-GY; G0378; J0360

== ENCOUNTER 2019-01-09 16:30 | Emergency (ER) | payer MEDICARE, OTHER ==
--- NOTE | 2019-01-09 17:35 | ED ---
Complex/Multi-Sys Presentation - HPI Summary HPI Summary: Patient presents for hyperglycemia, weakness, lightheadedness, nausea starting today. Patient went to PCP for routine follow-up and was sent to the ED for further evaluation of these symptoms. PMS patient BGL was 64. Patient states she gave her himself insulin before going to primary care but never ate lunch. Patient was given glucose by EMS. On arrival here in exam room patient states She is feeling back to baseline. Patient also states that she had blood on the toilet paper after wiping herself post urination today 1.. Denies fever, cough, sore throat, CP, SOB, N/V/D, abdominal pain, change in urine, change in BM, vaginal symptoms. Patient on home O2 at 2 L when necessary, 4 L oxygen with activity. Patient has history anemia with iron infusion once a month. Patient is followed by GI Dr. Marcial for chronic GI blood loss. Patient states she never sees blood in stool, but always tests positive on Hemoccult. Medical history is anemia, DM 2, CK D stage III, obesity, COPD, PE, mass, CHF, cirrhosis , thyroid, spinal stenosis. - History Of Current Complaint Chief Complaint: EDGeneral Time Seen by Provider: 01/09/19 16:49 Hx Obtained From: Patient, Family/Side Laster Staple Onset/Duration: Sudden Onset Timing: Constant, Hours Severity Currently: None Severity Initially: Moderate Associated Signs And Symptoms: Positive: Dizziness, Weakness, Nausea - Allergies/Home Medications Allergies/Adverse Reactions: Allergies Allergy/AdvReac Type Severity Reaction Status Date / Time captopril Allergy Severe Hives Verified 12/21/18 16:07 Home Medications: Home Medications Multivitamins/Minerals TAB* [Theragran/minerals TAB*] 1 tab PO DAILY 01/09/19 [ History Confirmed 01/09/19] oxyCODONE TAB* [Roxycodone TAB 5 mg*] 5 mg PO Q6H PRN 01/09/19 [History Confirmed 01/09/19] PMH/Surg Hx/FS Hx/Imm Hx Endocrine/Hematology History: Reports: Hx Blood Transfusions, Hx Diabetes, Hx Thyroid Disease, Hx Anemia - chronic iron infusions Cardiovascular History: Reports: Hx Angina, Hx Congestive Heart Failure, Hx Coronary Artery Disease, Hx Hypercholesterolemia, Hx Hypertension, Other Cardiovascular Problems/Disorders - cardiomyopathy Denies: Hx Myocardial Infarction, Hx Pacemaker/ICD Respiratory History: Reports: Hx Asthma, Hx Chronic Obstructive Pulmonary Disease (COPD), Hx Sleep Apnea, Other Respiratory Problems/Disorders - emphysema GI History: Reports: Hx Cirrhosis, Hx Gastroesophageal Reflux Disease, Hx Gastrointestinal Bleed, Hx Hiatal Hernia - s/p repair, Other GI Disorders - HELICOBACTER INFECTION History: Reports: Hx Chronic Renal Failure - Stage 3, Hx Renal Disease, Other Problems/Disorders - CKD stage 3 Musculoskeletal History: Reports: Hx Arthritis, Hx Back Problems, Other Musculoskeletal History - spinal stenosis Sensory History: Reports: Hx Cataracts - surgery with implants bilat eyes 96, Hx Contacts or Glasses Denies: Hx Deafness, Hx Hearing Aid Opthamlomology History: Reports: Hx Cataracts - surgery with implants bilat eyes 96, Hx Contacts or Glasses Neurological History: Reports: Other Neuro Impairments/Disorders - vertigo Psychiatric History: Reports: Hx Anxiety, Hx Depression, Other Psychiatric Issues/Disorders - PT REPORTS"STRESS" AND SAYS HER MD GAVE HER A MED FOR IT, UNSURE WHAT Denies: Hx Panic Disorder - Surgical History Surgery Procedure, Year, and Place: HERNIA. HYSTERECTOMY. CATERACTS. CARPAL TUNNEL. CYSTS REMOVED FROM BILATERAL ARMPITS. RTC RT. LT FOOT SURGERY - Immunization History Date of Tetanus Vaccine: > 10 yers Date of Influenza Vaccine: [id number] Infectious Disease History: No Infectious Disease History: Denies: Hx of Known/Suspected MRSA, Traveled Outside the [place] in Last 30 Days - Family History Known Family History: Positive: Diabetes, Other - Yes - CHF (Mother) - Social History Alcohol Use: None Hx Substance Use: No Substance Use Type: Reports: None Hx Tobacco Use: Yes Smoking Status (MU): Former Smoker Have You Smoked in the Last Year: No Review of Systems Constitutional: Negative Eyes: Negative ENT: Negative Cardiovascular: Negative Respiratory: Negative Positive: Nausea Genitourinary: Negative Musculoskeletal: Negative Skin: Negative Positive: Weakness Psychological: Normal All Other Systems Reviewed And Are Negative: Yes Physical Exam - Summary Physical Exam Summary: Neuro exam normal. Lung sounds clear to auscultation bilaterally. Abdomen soft nontender. RRR. Triage Information Reviewed: Yes Vital Signs On Initial Exam: Initial Vitals Temp Pulse Resp BP Pulse Ox 97.7 F 61 16 215/98 100 01/09/19 16:33 01/09/19 16:33 01/09/19 16:33 01/09/19 16:33 01/09/19 16:33 Vital Signs Reviewed: Yes Appearance: Positive: Well-Appearing Skin: Positive: Warm Head/Face: Positive: Normal Head/Face Inspection Eyes: Positive: Normal Neck: Positive: Supple Respiratory/Lung Sounds: Positive: Clear to Auscultation Cardiovascular: Positive: Normal Abdomen Description: Positive: Nontender Musculoskeletal: Positive: Normal Neurological: Positive: Normal Psychiatric: Positive: Normal AVPU Assessment: Alert - Madai Coma Scale Best Eye Response: 4 - Spontaneous Best Motor Response: 6 - Obeys Commands Best Verbal Response: 5 - Oriented Coma Scale Total: 15 Diagnostics - Vital Signs Vital Signs Temp Pulse Resp BP Pulse Ox 01/09/19 17:18 65 202/101 100 01/09/19 17:00 65 100 01/09/19 16:55 69 215/98 100 01/09/19 16:37 64 100 01/09/19 16:33 97.7 F 61 16 215/98 100 - Laboratory Result Diagrams: 01/09/19 17:45 01/09/19 17:45 Lab Statement: Any lab studies that have been ordered have been reviewed, and results considered in the medical decision making process. Complex Multi-Symp Course/Dx Course Of Treatment: Patient presents for hyperglycemia, weakness, lightheadedness, nausea starting today. Patient went to PCP for routine follow- up and was sent to the ED for further evaluation of these symptoms. PMS patient BGL was 64. Patient states she gave her himself insulin before going to primary care but never ate lunch. Patient was given glucose by EMS. On arrival here in exam room patient states She is feeling back to baseline. Patient also states that she had blood on the toilet paper after wiping herself post urination today 1.. Denies fever, cough, sore throat, CP, SOB, N/V/D, abdominal pain, change in urine, change in BM, vaginal symptoms. Patient on home O2 at 2 L when necessary, 4 L oxygen with activity. Patient has history anemia with iron infusion once a month. Patient is followed by GI Dr. Marcial for chronic GI blood loss. Patient states she never sees blood in stool, but always tests positive on Hemoccult. Medical history is anemia, DM 2, CK D stage III, obesity, COPD, PE, mass, CHF, cirrhosis, thyroid, spinal stenosis. Vital signs within normal limits. Patient on oxygen 2 L history of home O2 at 2 L when necessary. Patient states stools are always guaiac positive, no benefit to be gained from repeat stool occult. Physical exam of rectum and vagina shows no source of bleeding and no obvious bleeding. Pad patient wearing at the time also negative for blood. EKG sinus rhythm with LVH. Unchanged from prior. Labs at patient baseline. Patient states he feels back to baseline after administration of glucose. - Diagnoses Provider Diagnoses: Hypoglycemia Discharge - Sign-Out/Discharge Documenting (check all that apply): Patient Departure Patient Received Moderate/Deep Sedation with Procedure: No - Discharge Plan Condition: Stable Disposition: HOME Patient Education Materials: Hypoglycemia in a Person with Diabetes (ED) Referrals: Neena Moyer MD [Primary Care Provider] - Additional Instructions: Follow-up with primary care. Return to the ED for any new or worsening symptoms. - Billing Disposition and Condition Condition: STABLE Disposition: Home
[2019-01-09 18:02] LABS: ABS Eosinophils 0.2 10^3/ul (0-0.6); ABS Lymphocytes 0.7 10^3/ul (1.0-4.8); ABS Monocytes 0.5 10^3/ul (0-0.8); ABS Neutrophils 3.8 10^3/ul (1.5-7.7); Hematocrit 29 % (35-47); Hemoglobin 9.2 g/dL (12.0-16.0); Lymphocyte % 12.9 %; Mean Corpuscular HGB Conc 31 g/dL (31-36); Mean Corpuscular Hemoglobin 25 pg (27-31); Mean Corpuscular Volume 81 fL (80-97); Mean Platelet Volume 9.8 fL (7.4-10.4); Platelet Count 113 10^3/uL (150-450); Red Blood Count 3.66 10^6 /uL (3.70-4.87); Red Cell Distribution Width 17 % (10-15); White Blood Count 5.1 10^3/uL (3.5-10.8)
[2019-01-09 18:07] LABS: INR 1.15 (0.82-1.09)
[2019-01-09 18:13] LABS: Albumin 3.1 g/dL (3.2-5.2); Albumin/Globulin Ratio 0.9 (1-3); BUN/Creatinine Ratio 16.7 (8-20); C Reactive Protein 3.32 mg/L (<8.01); Calcium 8.1 mg/dL (8.6-10.3); EGFR African American 68.2 (>60); EGFR Non-African American 56.4 (>60); Globulin 3.3 g/dL (2-4); Potassium 3.8 mmol/L (3.5-5.0); Total Bilirubin 0.4 mg/dL (0.2-1.0); Total Protein 6.4 g/dL (6.4-8.9)
[2019-01-09 18:27] VITALS: BP 179/76
[2019-01-09 19:00] LABS: Troponin I 0.02 ng/mL (<0.04)
== END 2019-01-09 19:51 | disposition home or self-care (01) ==
LOC: ED 16:30
DX: E11.649 Type 2 diabetes mellitus with hypoglycemia without coma (principal); E11.22 Type 2 diabetes mellitus with diabetic chronic kidney disease; I13.0 Hypertensive heart and chronic kidney disease with heart failure and stage 1 through stage 4 chronic kidney disease, or unspecified chronic kidney disease; N18.3 Chronic kidney disease, stage 3 (moderate); D63.1 Anemia in chronic kidney disease; E66.9 Obesity, unspecified; J44.9 Chronic obstructive pulmonary disease, unspecified; I50.9 Heart failure, unspecified; I25.10 Atherosclerotic heart disease of native coronary artery without angina pectoris; E78.00 Pure hypercholesterolemia, unspecified; Z88.8 Allergy status to other drugs, medicaments and biological substances; Z79.2 Long term (current) use of antibiotics; Z79.4 Long term (current) use of insulin; Z79.891 Long term (current) use of opiate analgesic; Z99.81 Dependence on supplemental oxygen; Z87.891 Personal history of nicotine dependence
CPT/HCPCS: 36415; 80053; 82803; 83605; 83690; 84484; 85025; 85610; 86140; 93005; 99283

== ENCOUNTER 2019-04-17 20:40 | Inpatient (IN) | payer MEDICARE, OTHER ==
--- OUTSIDE RECORDS SUMMARY | 2019-04-17 21:04 | XMS REPORT | Continuity of Care Document ---
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 Onset: 05/29/2018 Chronic obstructive lung disease Nakita Junior M.D. Onset: 05/29/2018 Note: quit smoking approx 2001 Chronic kidney disease stage 2 Nakita Junior M.D. Onset: 05/30/2018 Social History Type Date Description Comments Sex Unknown Tobacco Use Start: Unknown none ETOH Use Denies alcohol use Tobacco Use Start: Unknown Patient is a former smoked cigarettes for End: Unknown smoker 40 years, approximately 2 cartons per week (the last 6 years), and quit in 2001 Recreational Drug Use Denies Drug Use Smoking Status Reviewed: 03/08/19 Patient is a former smoked cigarettes for [...] bedtime Suspension Prilosec take 1 tab by 30caps Samir Prado 05/05/[address] mouth twice daily MD Esme MarcialYuniel Original as needed otc Unknown 325mg Tablets Efferv Triamcinolone apply once daily Unknown Acetonide 0.1% Cream Nystatin apply to affected Unknown Powder 1-2 times daily Oxycodone HCL 1/2 tabs by mouth Unknown [...] by mouth every Unknown day 25mcg Tablets Spironolactone 1 by mouth every Unknown 25mg day Tablets Bumetanide 1 po bid 180tabs Unknown 2mg Tablets Terazosin HCL 1 by mouth every 90caps Unknown 10mg day Capsules Potassium Chloride ER 1 by mouth bid 30tabs Unknown 20Meq Tablets ER Vitamin B-12 2 po qd 30tabs Unknown 500mcg Tablets Sub Iron 1 by mouth bid Unknown 325(65Fe) mg Tablets Carvedilol 1 by mouth bid 200tabs Unknown 25mg Tablets Losartan Potassium 1 po bid Unknown 50mg Tablets Metformin HCL 1 tablet twice 60tabs Unknown 500mg daily Tablets Immunizations Description No Information Available Vital Signs Date Vital Result Comment 03/08/2019 2:18pm Height 63 inches 5'3" Weight 219.00 lb Heart Rate 75 /min BP Systolic 176 mmHg BP Diastolic 69 mmHg O2 % BldC Oximetry 96 % on room air- has her O2 off at this time BMI (Body Mass Index) 38.8 kg/m2 12/27/2018 10:18am Height 63 inches 5'3" Weight 223.00 lb w/ shoes Heart Rate 86 /min BP Systolic 178 mmHg at end of intake. BP Diastolic 82 mmHg at end of intake. BP Systolic Sitting 214 mmHg BP Diastolic Sitting 96 mmHg BMI (Body Mass Index) 39.5 kg/m2 Results Test Date Facility Test Result H/L Range Note Type & Screen 02/16/2019 [facility] Patient Blood O Positive [address] [place] [address] [phone] Antibody Screen NEGATIVE Laboratory test 02/16/2019 [facility] Packed Cells SEE RESULTS [address] BELO <[place] [address] NOTE> [phone] Stool Occult 11/07/2018 [facility] Stool Occult SEE RESULT 3 Blood Diag [address] Blood, [place] [address] [phone] Laboratory test 11/07/2018 [facility] Point of Care 312 mg/dL High 70-10 [address] Glucose 0 [place] [address] [phone] Laboratory test 09/28/2018 [facility] B-Type 213 pg/mL High <= [address] [place] [address] Peptide BNP [phone] Erythropoietin 46.4 mIU/mL Abnormal 2.6 - 18.5 5 CBC No Diff 09/28/2018 [facility] White Blood 5.3 10^3/uL Normal 3.5-10.[address] [place] [address] [phone] Red Blood Count 3.19 10^6/uL Low 3.70-4.87 Hemoglobin 8.0 g/dL Low 12.0-16.0 Hematocrit 26 % Low 33-41 Mean Corpuscular Volume 82 fL Normal 80-97 Mean Corpuscular Hemoglobin 25 pg Low 27-31 Mean Corpuscular HGB Conc 30 g/dL Low 31-36 Red Cell Distribution Width 17 % High 10.5-15 Platelet Count 146 10^3/uL Low 150-450 Mean Platelet Volume 10.1 fL Normal 7.4-10.4 Laboratory test 09/28/2018 [facility] Ferritin 172.0 ng/mL Normal 11-307 finding [address] [place] [address] [phone] Basic Metabolic 09/28/2018 [facility] Sodium 144 mmol/L Normal 135-145 Panel [address] [place] [address] [phone] Potassium 3.7 mmol/L Normal 3.5-5.0 Chloride 107 mmol/L Normal 101-111 Co2 Carbon Dioxide 31 mmol/L Normal 22-32 Anion Gap 6 mmol/L Normal 2-11 Glucose 161 mg/dL High 70-100 Blood Urea Nitrogen 18 mg/dL Normal 6-24 Creatinine 0.82 mg/dL Normal 0.51-0.95 BUN/Creatinine Ratio 22.0 High 8-20 Calcium 8.6 mg/dL Normal 8.6-10.3 Egfr Non- 67.8 >60 Egfr 82.0 >60 6 1 SOB PER EMS 2 SEE RESULTS BELOW [id number] OP PC TRANSFUSED 02/16/19 0624 [id number] OP PC TRANSFUSED 02/16/19 0345 [id number] OP PC TRANSFUSED 02/17/19 0814 3 SEE RESULT BELOW Name: ERIKA HANSEN : [address]: Samir Marcial MD Acct: [id number] Unit: [id number] AGE: 77 Location: ENDO Re11/07/18 SEX: F Status: REG REF SPEC: [id number] MONICA: 11/07/[address] [facility] [address]: Samir Marcial MD REQ: [id number] RECD: 11/07/18 STATUS: JACOB BAIG DR: Neena Moyer MD _ SOURCE: STOOL SPDESC: ORDERED: Occult Bl, Diag Procedure Result Reported Site Stool Occult Blood (1) Final 11/07/18- 1444 ML Stool Occult Blood Positive * ML - Main Lab . END OF REPORT DEPARTMENT OF PATHOLOGY, [address] [place] [address] Mckay Gleason M.D. Director [facility] # [id number] 4 Criminal Intelligence Specialist: [id number] Test Performed by: [facility] [address] [place] [id number] 6 Because ethnic data is not always readily [...] (or dialysis) Procedures Date Code Description Status 12/27/2018 87607 Glucose Monitoring Interpetation And Report Completed 11/07/2018 00823 Esophagogastroduodenoscopy, diagnostic, incl brush/wash Completed if perfor 06/06/2018 [id number] Colonoscopy Completed 06/17/2016 [id number] Colonoscopy Completed 08/27/2008 [id number] Colonoscopy Completed 06/16/2004 [id number] Colonoscopy Completed Medical Devices Description No Information Available Encounters Type Date Location Provider Dx Diagnosis Office Visit 02/20/2019 [facility] Tanya D62 Acute posthemorrhagic 9:10a Assoc,pc david Pandey 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 J96.21 Acute and chronic respiratory failure with hypoxia I50.9 Heart failure, unspecified R50.9 Fever, unspecified B95.1 Streptococcus, group B, causing diseases classd elswhr N39.0 Urinary tract infection, site not specified Office Visit 02/19/2019 [facility] Tanya D62 Acute posthemorrhagic 9:10a Assoc,pc Tj Mcclain, anemia 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1 Melena I50.9 Heart failure, unspecified E11.9 Type 2 diabetes mellitus without complications Office Visit 02/16/2019 [facility] Lula D64.9 Anemia, 9:08a Assoc,pc EZEQUIEL Coats unspecified Hospitalists D69.6 Thrombocytopenia, unspecified R06.02 Shortness of breath I25.5 Ischemic cardiomyopathy E11.9 Type 2 diabetes mellitus without complications Office Visit 01/06/2019 8:28a [facility] [place] Perry, R06.89 Other abnormalities Assoc,pc of breathing Hospitalists R06.02 Shortness of breath Office Visit 01/05/2019 8:27a [facility] [place] Perry MD R07.89 Other chest Assoc,pc Hospitalists pain R06.02 Shortness of breath Office Visit 12/27/2018 [place] Paige Contreras, E11.65 Type 2 diabetes 10:40a Endocrinology of mellitus with [place] hyperglycemia Z79.4 terminal computer operator (current) use of insulin I50.9 Heart failure, unspecified Z68.39 Body mass index (BMI) 39.0-39.9, adult Office Visit 12/13/2018 [place] Paige Contreras, E11.65 Type 2 diabetes 10:00a Endocrinology of mellitus with [place] hyperglycemia Z79.4 terminal computer operator (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 hyprosm w/o nonket Hospitalists hyprgly-hypros coma ([facility]) E11.65 Type 2 diabetes mellitus with hyperglycemia Z79.4 MCC (current) use of insulin J44.9 Chronic obstructive pulmonary disease, unspecified Office Visit 11/15/2018 [facility] Davie E11.00 Type 2 diab w 9:00a tong Hough M.D. hyprosm w/o nonket Hospitalists hyprgly-hypros coma ([facility]) D64.9 Anemia, unspecified I50.9 Heart failure, unspecified J44.9 Chronic obstructive pulmonary disease, unspecified Office Visit 11/14/2018 [facility] Samir Prado R10.13 Epigastric pain 7:00a MD Aniket R74.8 Abnormal levels of other serum enzymes G47.10 Hypersomnia, unspecified Office Visit 11/14/2018 [facility] Marjoire E11.00 Type 2 diab w 8:58a Assoc,tong [facility], hyprosm w/o nonket Hospitalists hyprgly-hypros coma ([facility]) E11.65 Type 2 diabetes mellitus with hyperglycemia J98.11 Atelectasis Office Visit 11/14/2018 8:58a Intensivists Jose J Lozano, K85.90 Acute pancreatitis M.D. without necrosis or infection, unsp K76.6 Portal hypertension Office 10/02/2018 [facility] Samir Prado E11.649 Type 2 diabetes Visit 2:45p MD Aniket mellitus with hypoglycemia without coma K92.2 Gastrointestinal hemorrhage, unspecified E66.01 Morbid (severe) obesity due to excess calories K75.81 Nonalcoholic steatohepatitis ([place]) D64.9 Anemia, unspecified Assessments Date Code Description Provider 03/08/2019 D50.9 Iron deficiency anemia, unspecified Samir Marcial MD 03/08/2019 K75.81 Nonalcoholic steatohepatitis ([place]) Samir Marcial MD 03/08/2019 I50.9 Heart failure, unspecified Samir Marcial MD 03/08/2019 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 03/08/2019 E66.9 Obesity, unspecified Samir Marcial MD 03/08/2019 K76.6 Portal hypertension Samir Marcial MD 02/20/2019 D62 Acute posthemorrhagic anemia [facility], ENGRAVING PRESS OPERATOR 02/20/2019 J96.21 Acute and chronic respiratory failure [facility] Sarahi, ENGRAVING PRESS OPERATOR with hypoxia 02/20/2019 I50.9 Heart failure, unspecified [facility] Doto, ENGRAVING PRESS OPERATOR 02/20/2019 R50.9 Fever, unspecified [facility] Dot, ENGRAVING PRESS OPERATOR 02/20/2019 B95.1 Streptococcus, group B, as the cause of [facility], ENGRAVING PRESS OPERATOR diseases classified elsewhere 02/20/2019 N39.0 Urinary tract infection, site not [facility], ENGRAVING PRESS OPERATOR specified 02/19/2019 D62 Acute posthemorrhagic anemia [facility] Dot, ENGRAVING PRESS OPERATOR 02/19/2019 J96.21 [facility] and [facility] ENGRAVING PRESS OPERATOR with hypoxia 02/19/2019 K92.1 Liz [facility] Doto, ENGRAVING PRESS OPERATOR 02/19/2019 R50.9 Fever, unspecified [facility] Doto, ENGRAVING PRESS OPERATOR 02/19/2019 J96.11 Chronic respiratory failure with hypoxia [facility] Samara, ENGRAVING PRESS OPERATOR 02/19/2019 K75.81 Nonalcoholic steatohepatitis ([place]) [facility] Dotzenobia , ENGRAVING PRESS OPERATOR 02/18/2019 D64.9 Anemia, unspecified Lj Vu PA 02/18/2019 K92.1 SOFIA Briseno 02/18/2019 I50.9 Heart failure, unspecified SOFIA Bianchi 02/18/2019 R50.9 Fever, unspecified SOFIA Bianchi 02/18/2019 J44.9 Chronic obstructive pulmonary disease, Lj Vu PA unspecified 02/18/2019 E11.9 Type 2 diabetes mellitus without SOFIA Bianchi complications 02/17/2019 D64.9 Anemia, unspecified SOFIA Bianchi 02/17/2019 K92.1 SOFIA Briseno 02/17/2019 I50.9 Heart failure, unspecified Lj Vu, SOFIA 02/17/2019 E11.9 Type 2 diabetes mellitus without SOFIA Bianchi complications 02/16/2019 D64.9 Anemia, unspecified Lulaserena Coats, ENGRAVING PRESS OPERATOR 02/16/2019 D69.6 Thrombocytopenia, unspecified Lula Koloa, ENGRAVING PRESS OPERATOR 02/16/2019 R06.02 Shortness of breath Lulaserena Coats, ENGRAVING PRESS OPERATOR 02/16/2019 I25.5 Ischemic cardiomyopathy Lula Jorge L, ENGRAVING PRESS OPERATOR 02/16/2019 E11.9 Type 2 diabetes mellitus without Lula Koloa, ENGRAVING PRESS OPERATOR complications 01/06/2019 R06.89 Other abnormalities of breathing [place] Perry MD 01/06/2019 R06.02 Shortness of breath [place] Perry MD 01/05/2019 R07.89 Other chest pain [place] Perry MD 01/05/2019 R06.02 Shortness of breath [place] Perry MD 12/27/2018 E11.65 Type 2 diabetes mellitus with Jairon Contreras MD hyperglycemia 12/27/2018 Z79.4 MCC (current) use of insulin Jairon Contreras MD 12/27/2018 I50.9 Heart failure, unspecified Jairon Contreras MD 12/27/2018 Z68.39 Body mass index (BMI) 39.0-39.9, adult Jairon Contreras MD 12/13/2018 E11.65 Type 2 diabetes mellitus with Jairon Contreras MD hyperglycemia 12/13/2018 Z79.4 terminal computer operator (current) use of insulin Jairon Conterras MD 12/13/2018 I50.9 Heart failure, unspecified Jairon Contreras MD 11/16/2018 E11.00 Type 2 diab w hyprosm w/o nonket Davie Akbar M.D. hyprgly-hypros coma ([facility]) 11/16/2018 E11.65 Type 2 diabetes mellitus with Davie Akbar M.D. hyperglycemia 11/16/2018 Z79.4 terminal computer operator (current) use of insulin Davie Akbar M.D. 11/16/2018 J44.9 Chronic obstructive pulmonary disease, Davie Akbar M.D. unspecified 11/15/2018 E11.00 Type 2 diab w hyprosm w/o nonket Davie Pearce, M.D. hyprgly-hypros coma ([facility]) 11/15/2018 D64.9 Anemia, unspecified Davie Akbar M.D. 11/15/2018 I50.9 Heart failure, unspecified Davie Akbar M.D. 11/15/2018 J44.9 Chronic obstructive pulmonary disease, Davie Akbar M.D. unspecified 11/14/2018 R10.13 Epigastric pain Samir Marcial MD 11/14/2018 K85.90 Acute pancreatitis without necrosis or Jose J Lozano M.D. infection, unsp 11/14/2018 R74.8 Abnormal levels of other serum enzymes Samir Marcial MD 11/14/2018 E11.00 Type 2 diab w hyprosm w/o nonket Marjorie Rootosman, DO hyprgly-hypros coma ([facility]) 11/14/2018 G47.10 Hypersomnia, unspecified Samir Marcial MD 11/14/2018 K76.6 Portal hypertension Jose J Lozano M.D. 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 at [address]05/2019 - Samir Marcial, MDD50.9 Iron deficiency anemia, unspecifiedNew Labs:Basic Metabolic Panel, Ordered: 03/08/19CBC Auto Diff, Ordered: 03/08/19Ferritin, Ordered: 03/08/19Type & Screen, Ordered: Follow up:Pt to go to hospital lab at 8 AM and wait for result - if Hg < 8.5 transfuse 1 unit pRBCs. If <7.8 give two units with Lasix 40 mg oral during last 15 minutes of first unit. PTBK75.81 Nonalcoholic steatohepatitis ( [place])Follow up:Pt to go to hospital lab at 8 AM and wait for result - if Hg < 8.5 transfuse 1 unit pRBCs. If <7.8 give two units with Lasix 40 mg oral during last 15 minutes of first unit. PTBI50.9 Heart failure, unspecifiedFollow up:Pt to go to hospital lab at 8 AM and wait for result - if Hg <8.5 transfuse 1 unit pRBCs. If <7.8 give two units with Lasix 40 mg oral during last 15 minutes of first unit. PTBE11.42 Type 2 diabetes mellitus with diabetic polyneuropathyFollow up:Pt to go to hospital lab at 8 AM and wait for result - if Hg <8.5 transfuse 1 unit pRBCs. If <7.8 give two units with Lasix 40 mg oral during last 15 minutes of first unit. PTBE66.9 Obesity, unspecifiedFollow up:Pt to go to hospital lab at 8 AM and wait for result - if Hg <8.5 transfuse 1 unit pRBCs. If <7.8 give two units with Lasix 40 mg oral during last 15 minutes of first unit. PTBK76.6 Portal hypertensionFollow up:Pt to go to hospital lab at 8 AM and wait for result - if Hg <8.5 transfuse 1 unit pRBCs. If <7.8 give two units with Lasix 40 mg oral during last 15 minutes of first unit. PTB Functional Status Description No Information Available Mental Status Description No Information Available Referrals Description No Information Available
--- OUTSIDE RECORDS SUMMARY | 2019-04-17 21:04 | XMS REPORT | Continuity of Care Document ---
:1940 External Reference #:[id number] Author Name Ashly Sanchez Care Team Providers Name Role Phone Neena Moyer MD - Internal Care Team Information Urologic Surgeon [phone] Medicine Problems Active Problems Provider Date Primary [...] MD Onset: heart failure Anemia Jennifer Carty D.OTereza Onset: 03/11/2018 Thrombocytopenic disorder Jennifer Carty D.OTereza Onset: 03/11/2018 Hypothyroidism Jennifer Carty D.O. 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 Note: micronodular contour to [...] Use Denies Drug Use Smoking Status Reviewed: 03/14/19 Patient is a former smoked cigarettes for smoker 40 years, approximately 2 cartons per week (the last 6 years), and quit in 2001 Exercise Type/Frequency Does not exercise Allergies, Adverse Reactions, Alerts Active Allergies Reaction Severity Comments Date Captopril rash 11/02/2013 Medications Active Medications SIG Qnty Indications Ordering Date Provider Lasedinson Please take one 1tabs Cami Davis, 03/09/2019 20mg Tablets tablet po, in HEAT SEALING MACHINE OPERATOR between rbc bag 1 and rbc bag 2 (infusions). Prilosec take 1 tab by 30caps Samir Prado 05/05/[address] mouth twice daily MD [place] Original as needed otc Unknown 325mg Tablets [...] chest pain max 3, then call ambulance Multivitamins 1 by mouth every 30caps Unknown Capsules day Simvastatin 1 by mouth every 90tabs Unknown [...] tablet twice 60tabs Unknown 500mg daily Tablets History Medications Humulin N 25 units once daily 20ml Jiaron Contreras MD 12/13/2018 - 100Unit/ML at bedtime 03/13/2019 Suspension Immunizations Description No Information Available Vital Signs Date Vital Result Comment 03/14/2019 2:58pm Height 63 inches 5'3" Weight 210.38 lb With shoes Heart Rate 70 /min BP Systolic Sitting 146 mmHg Lue BP Diastolic Sitting 84 mmHg Lue BP Systolic Standing 140 mmHg Lue BP Diastolic Standing 80 mmHg Lue BMI (Body Mass Index) 37.3 kg/m2 Ejection Fraction 45-50% Echo 04/21/18 03/08/2019 2:18pm Height 63 inches 5'3" Weight 219.00 lb Heart Rate 75 /min BP Systolic 176 mmHg BP Diastolic 69 mmHg O2 % BldC Oximetry 96 % on room air- has her O2 off at this time BMI (Body Mass Index) 38.8 kg/m2 Results Test Date Facility Test Result H/L Range Note Basic Metabolic 03/09/2019 [facility] Sodium 144 mmol/L Normal 135-[address] [place] [address] [phone] Potassium 3.9 mmol/L Normal 3.5-5.0 Chloride 108 mmol/L Normal 101-111 Co2 Carbon Dioxide 33 mmol/L High 22-32 Anion Gap 3 mmol/L Normal 2-11 Glucose 72 mg/dL Normal 70-100 Blood Urea Nitrogen 18 mg/dL Normal 6-24 Creatinine 0.75 mg/dL Normal 0.51-0.95 BUN/Creatinine Ratio 24.0 High 8-20 Calcium 8.5 mg/dL Low 8.6-10.3 Egfr Non- 74.9 >60 Egfr 90.7 >60 1 CBC Auto 03/09/2019 [facility] White Blood 6.3 10^3/uL Normal 3.5-10.[address] [place] [address] [phone] Red Blood Count 2.80 10^6/uL Low 3.70-4.87 Hemoglobin 7.6 g/dL Low 12.0-16.0 Hematocrit 24 % Low 35-47 Mean Corpuscular Volume 87 fL Normal 80-97 Mean Corpuscular Hemoglobin 27 pg Normal 27-31 Mean Corpuscular HGB Conc 31 g/dL Normal 31-36 Red Cell Distribution Width 18 % High 10-15 Platelet Count 123 10^3/uL Low 150-450 Mean Platelet Volume 8.7 fL Normal 7.4-10.4 Abs Neutrophils 4.7 10^3/uL Normal 1.5-7.7 Abs Lymphocytes 0.6 10^3/uL Low 1.0-4.8 Abs Monocytes 0.7 10^3/uL Normal 0-0.8 Abs Eosinophils 0.3 10^3/uL Normal 0-0.6 Abs Basophils 0.0 10^3/uL Normal 0-0.2 Abs Nucleated RBC 0.0 10^3/uL Granulocyte % 74.0 % Lymphocyte % 9.5 % Monocyte % 10.6 % Eosinophil % 5.2 % Basophil % 0.7 % Nucleated Red Blood Cells % 0.0 Laboratory test 03/09/2019 [facility] Ferritin 108.1 ng/mL Normal 11-307 [address] [place] [address] [phone] Type & Screen 03/09/2019 [facility] Patient O Positive [address] [place] [place] [address] [phone] Antibody Screen NEGATIVE Laboratory test 03/09/2019 [facility] Packed Cells SEE RESULTS [address] BELO <SEE NOTE> [place] [address] [phone] Type & Screen 02/16/2019 [facility] Patient Blood O Positive [address] [place] [address] [phone] Antibody Screen NEGATIVE Laboratory test 02/16/2019 [facility] Packed Cells SEE RESULTS [address] BELO <[place] [address] NOTE> [phone] Stool Occult 11/07/2018 [facility] Stool Occult SEE RESULT 6 Blood Diag [address] Blood, [place] [address] [phone] Laboratory test 11/07/2018 [facility] Point of Care 312 mg/dL High 70-10 7 finding 101 [facility] Glucose 0 [place] [address] [phone] Laboratory test 09/28/2018 [facility] B-Type 213 pg/mL High <= [address] [place] [address] Peptide BNP [phone] Erythropoietin 46.4 mIU/mL Abnormal 2.6 - 18.5 8 CBC No Diff 09/28/2018 [facility] White Blood 5.3 10^3/uL Normal 3.5-10.[address] [place] [address] [phone] Red Blood Count 3.19 10^6/uL Low 3.70-4.87 Hemoglobin 8.0 g/dL Low 12.0-16.0 Hematocrit 26 % Low 33-41 Mean Corpuscular Volume 82 fL Normal 80-97 Mean Corpuscular Hemoglobin 25 pg Low 27-31 Mean Corpuscular HGB Conc 30 g/dL Low 31-36 Red Cell Distribution Width 17 % High 10.5-15 Platelet Count 146 10^3/uL Low 150-450 Mean Platelet Volume 10.1 fL Normal 7.4-10.4 Laboratory test 09/28/2018 [facility] Ferritin 172.0 ng/mL Normal 11-307 finding [address] [place] [address] [phone] Basic Metabolic 09/28/2018 [facility] Sodium 144 mmol/L Normal 135-145 Panel [address] [place] [address] [phone] Potassium 3.7 mmol/L Normal 3.5-5.0 Chloride 107 mmol/L Normal 101-111 Co2 Carbon Dioxide 31 mmol/L Normal 22-32 Anion Gap 6 mmol/L Normal 2-11 Glucose 161 mg/dL High 70-100 Blood Urea Nitrogen 18 mg/dL Normal 6-24 Creatinine 0.82 mg/dL Normal 0.51-0.95 BUN/Creatinine Ratio 22.0 High 8-20 Calcium 8.6 mg/dL Normal 8.6-10.3 Egfr Non- 67.8 >60 Egfr 82.0 >60 9 1 Because ethnic data is not always [...] 15-29 5 Kidney failure <15 (or dialysis) 2 [facility] IS WAITING TO TALK TO DR EUCEDA AFTER RESULTS ARE COMPLETE. CALL RESULTS TO DR EUCEDA [phone] SEE RESULTS BELOW [id number] OP PC TRANSFUSED 03/09/19 1619 [id number] OP PC TRANSFUSED 03/09/19 1253 4 SOB PER EMS 5 SEE RESULTS BELOW [id number] OP PC TRANSFUSED 02/16/19 0624 [id number] OP PC TRANSFUSED 02/16/19 0345 [id number] OP PC TRANSFUSED 02/17/19 0814 6 SEE RESULT BELOW Name: ERIKA HANSEN : [address]: Samir Euceda MD Acct: [id number] Unit: [id number] AGE: 77 Location: ENDO Re11/07/18 SEX: F Status: REG REF SPEC: [id number] MONICA: 11/07/18 [facility] DR: Samir Euceda MD REQ: [id number] RECD: 11/07/18 STATUS: JACOB BAIG DR: Neena Moyer MD _ SOURCE: STOOL SPDESC: ORDERED: Occult Bl, Diag Procedure Result Reported Site Stool Occult Blood (1) Final 11/07/18- 1444 ML Stool Occult Blood Positive * ML - Main Lab . END OF REPORT DEPARTMENT OF PATHOLOGY, [address] [place] [address] Mkcay Gleason M.D. Director [facility] # [id number] Garment Alteration Examiner: [id number] Test Performed by: [facility] [place] [address] 9 Because ethnic data is not always readily [...] (or dialysis) Procedures Date Code Description Status 03/14/2019 27731 EKG Tracing & Interpretation Completed 12/27/2018 57150 Glucose Monitoring Interpetation And Report Completed 11/07/2018 84178 Esophagogastroduodenoscopy, diagnostic, incl brush/wash Completed if perfor 06/06/2018 [id number] Colonoscopy Completed 06/17/2016 [id number] Colonoscopy Completed 08/27/2008 [id number] Colonoscopy Completed 06/16/2004 [id number] Colonoscopy Completed Medical Devices Description No Information Available Encounters Type Date Location Provider Dx Diagnosis Office Visit 03/14/2019 [facility] Swapnil Romero R06.02 Shortness of 3:15p Of Kike Horton M.D. breath I50.30 Unspecified diastolic (congestive) heart failure I42.9 Cardiomyopathy, unspecified Office Visit 03/08/2019 [facility] Samir Prado D50.9 Iron deficiency 2:00p MD Aniket anemia, unspecified K75.81 Nonalcoholic steatohepatitis ([place]) I50.9 Heart failure, unspecified E11.42 Type 2 diabetes mellitus with diabetic polyneuropathy E66.9 Obesity, unspecified K76.6 Portal hypertension Office Visit 02/20/2019 [facility] D62 Acute posthemorrhagic 9:10a Assoc,pc Tj Mcclain, anemia Hospitalists HEAT SEALING MACHINE OPERATOR J96.21 Acute and chronic respiratory failure with hypoxia I50.9 Heart failure, unspecified R50.9 Fever, unspecified B95.1 Streptococcus, group B, causing diseases classd elswhr N39.0 Urinary tract infection, site not specified Office Visit 02/19/2019 [facility] Tanya D62 Acute posthemorrhagic 9:10a Assoc,pc Tj Mcclain, anemia Hospitalists HEAT SEALING MACHINE OPERATOR J96.21 Acute and chronic respiratory failure with hypoxia K92.1 Melena R50.9 Fever, unspecified J96.11 Chronic respiratory failure with hypoxia K75.81 Nonalcoholic steatohepatitis ([place]) Office Visit 02/18/2019 9:09a [facility] Lj D64.9 Anemia, Assoc,pc SOFIA Vu unspecified Hospitalists K92.1 Melena I50.9 Heart failure, unspecified R50.9 Fever, unspecified J44.9 Chronic obstructive pulmonary disease, unspecified E11.9 Type 2 diabetes mellitus without complications Office Visit 02/17/2019 9:09a [facility] Lj D64.9 Anemia, Assoc,pc SOFIA Vu unspecified Hospitalists K92.1 Melena I50.9 Heart failure, unspecified E11.9 Type 2 diabetes mellitus without complications Office Visit 02/16/2019 [facility] Lula D64.9 Anemia, 9:08a Assoc,pc EZEQUIEL Coats unspecified Hospitalists D69.6 Thrombocytopenia, unspecified R06.02 Shortness of breath I25.5 Ischemic cardiomyopathy E11.9 Type 2 diabetes mellitus without complications Office Visit 01/06/2019 8:28a [facility] Chapincito Perry, R06.89 Other abnormalities Assoc,pc of breathing Hospitalists R06.02 Shortness of breath Office Visit 01/05/2019 8:27a [facility] Chapincito Perry MD R07.89 Other chest Assoc,pc Hospitalists pain R06.02 Shortness of breath Office Visit 12/27/2018 [place] Paige Contreras, E11.65 Type 2 diabetes 10:40a Endocrinology of mellitus with Chain Hoist Operator hyperglycemia Z79.4 intermediate (current) use of insulin I50.9 Heart failure, unspecified Z68.39 Body mass index (BMI) 39.0-39.9, adult Office Visit 12/13/2018 [place] Paige Contreras, E11.65 Type 2 diabetes 10:00a Endocrinology of mellitus with Chain Hoist Operator hyperglycemia Z79.4 intermediate (current) use of insulin I50.9 Heart failure, unspecified Office Visit 11/16/2018 [facility] Davie E11.00 Type 2 diab w 9:03a tong Hough M.D. 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 hyprosm w/o nonket Hospitalists hyprgly-hypros coma ([facility]) D64.9 Anemia, unspecified I50.9 Heart failure, unspecified J44.9 Chronic obstructive pulmonary disease, unspecified Office Visit 11/14/2018 [facility] Samir Prado R10.13 Epigastric pain 7:00a MD Aniket R74.8 Abnormal levels of other serum enzymes G47.10 Hypersomnia, unspecified Office Visit 11/14/2018 [facility] Marjorie E11.00 Type 2 diab w 8:58a Assoc,tong [facility], DO hyprosm w/o nonket Hospitalists hyprgly-hypros [facility] E11.65 Type 2 diabetes mellitus with hyperglycemia J98.11 Atelectasis Office Visit 11/14/2018 8:58a Intens[facility] Jose J Lozano, K85.90 Acute pancreatitis M.D. without necrosis or infection, unsp K76.6 Portal hypertension Office 10/02/2018 [facility] Samir Prado E11.649 Type 2 diabetes Visit 2:45p MD Aniket mellitus with hypoglycemia without coma K92.2 Gastrointestinal hemorrhage, unspecified E66.01 Morbid (severe) obesity due to excess calories K75.81 Nonalcoholic steatohepatitis ([place]) D64.9 Anemia, unspecified Assessments Date Code Description Provider 03/14/2019 R06.02 Shortness of breath Swapnil Horton M.D. 03/14/2019 I50.30 Unspecified diastolic (congestive) heart Swapnil Horton M.D. failure 03/14/2019 I42.9 Cardiomyopathy, unspecified Swapnil Horton M.D. 03/08/2019 D50.9 Iron deficiency anemia, unspecified Samir Euceda MD 03/08/2019 K75.81 Nonalcoholic steatohepatitis ([place]) Samir Euceda MD 03/08/2019 I50.9 Heart failure, unspecified Samir Euceda MD 03/08/2019 E11.42 Type 2 diabetes mellitus with diabetic Samir Euceda MD polyneuropathy 03/08/2019 E66.9 Obesity, unspecified Samir Euceda MD 03/08/2019 K76.6 Portal hypertension Samir Euceda MD 02/20/2019 D62 Acute posthemorrhagic anemia [facility] Sarahi, HEAT SEALING MACHINE OPERATOR 02/20/2019 J96.21 Acute and chronic respiratory failure [facility] Sarahi, HEAT SEALING MACHINE OPERATOR with hypoxia 02/20/2019 I50.9 Heart failure, unspecified [facility] Doto, HEAT SEALING MACHINE OPERATOR 02/20/2019 R50.9 Fever, unspecified [facility] HEAT SEALING MACHINE OPERATOR 02/20/2019 B95.1 Streptococcus, group B, as the cause of [facility], HEAT SEALING MACHINE OPERATOR diseases classified elsewhere 02/20/2019 N39.0 Urinary tract infection, site not [facility] Doto, HEAT SEALING MACHINE OPERATOR specified 02/19/2019 D62 Acute posthemorrhagic anemia [facility] Sarahi, HEAT SEALING MACHINE OPERATOR 02/19/2019 J96.21 Acute and chronic respiratory failure [facility] Sarahi, HEAT SEALING MACHINE OPERATOR with hypoxia 02/19/2019 K92.1 Liz Tanyalois Pascualo, HEAT SEALING MACHINE OPERATOR 02/19/2019 R50.9 Fever, unspecified [facility] Doto, HEAT SEALING MACHINE OPERATOR 02/19/2019 J96.11 Chronic respiratory failure with hypoxia [facility] Sarahi, HEAT SEALING MACHINE OPERATOR 02/19/2019 K75.81 Nonalcoholic steatohepatitis ([place]) Tanya Tj Mcclain , HEAT SEALING MACHINE OPERATOR 02/18/2019 D64.9 Anemia, unspecified SOFIA Bianchi 02/18/2019 K92.1 SOFIA Briseno 02/18/2019 I50.9 Heart failure, unspecified SOFIA Bianchi 02/18/2019 R50.9 Fever, unspecified SOFIA Bianchi 02/18/2019 J44.9 Chronic obstructive pulmonary disease, SOFIA Bianchi unspecified 02/18/2019 E11.9 Type 2 diabetes mellitus without Lj Vu, SOFIA complications 02/17/2019 D64.9 Anemia, unspecified Lj Vu, PA 02/17/2019 K92.1 [place] Lj Vu, PA 02/17/2019 I50.9 Heart failure, unspecified Lj Vu, PA 02/17/2019 E11.9 Type 2 diabetes mellitus without SOFIA Bianchi complications 02/16/2019 D64.9 Anemia, unspecified Lula Robisonney, HEAT SEALING MACHINE OPERATOR 02/16/2019 D69.6 Thrombocytopenia, unspecified Lula Levelock, HEAT SEALING MACHINE OPERATOR 02/16/2019 R06.02 Shortness of breath Lula Coats, HEAT SEALING MACHINE OPERATOR 02/16/2019 I25.5 Ischemic cardiomyopathy Lula Coats, HEAT SEALING MACHINE OPERATOR 02/16/2019 E11.9 Type 2 diabetes mellitus without Lula Coats, HEAT SEALING MACHINE OPERATOR complications 01/06/2019 R06.89 Other abnormalities of breathing Chapincito Perry MD 01/06/2019 R06.02 Shortness of breath Chapincito Perry MD 01/05/2019 R07.89 Other chest pain Chapincito Perry MD 01/05/2019 R06.02 Shortness of breath Chapincito Perry MD 12/27/2018 E11.65 Type 2 diabetes mellitus with Jairon Contreras MD hyperglycemia 12/27/2018 Z79.4 moth exterminator (current) use of insulin Jairon Contreras MD 12/27/2018 I50.9 Heart failure, unspecified Jairon Contreras MD 12/27/2018 Z68.39 Body mass index (BMI) 39.0-39.9, adult Jairon Contreras MD 12/13/2018 E11.65 Type 2 diabetes mellitus with Jairon Contreras MD hyperglycemia 12/13/2018 Z79.4 intermediate (current) use of insulin Jairon Contreras MD 12/13/2018 I50.9 Heart failure, unspecified Jairon Contreras MD 11/16/2018 E11.00 Type 2 diab w hyprosm w/o nonket Davie Akbar M.D. hyprgly-hypros coma ([facility]) 11/16/2018 E11.65 Type 2 diabetes mellitus with Davie Akbar M.D. hyperglycemia 11/16/2018 Z79.4 intermediate (current) use of insulin Davie Akbar M.D. 11/16/2018 J44.9 Chronic obstructive pulmonary disease, Davie Akbar M.D. unspecified 11/15/2018 E11.00 Type 2 diab w hyprosm w/o nonket Davie Akbar M.D. hyprgly-hypros coma ([facility]) 11/15/2018 D64.9 Anemia, unspecified Davie Akbar M.D. 11/15/2018 I50.9 Heart failure, unspecified Davie Akbar M.D. 11/15/2018 J44.9 Chronic obstructive pulmonary disease, Davie Akbar M.D. unspecified 11/14/2018 R10.13 Epigastric pain Samir Euceda MD 11/14/2018 K85.90 Acute pancreatitis without necrosis or Jose J [facility]. [facility] 11/14/2018 R74.8 Abnormal levels of other serum enzymes Saimr Euceda MD 11/14/2018 E11.00 Type 2 diab w hyprosm w/o nonket Marjorie Rooth, DO hyprgly-hypros coma ([facility]) 11/14/2018 G47.10 Hypersomnia, unspecified Samir Euceda MD 11/14/2018 K76.6 Portal hypertension Jose J Lozano M.D. 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 Samir Euceda MD 11/07/2018 D64.9 Anemia, unspecified Samir Euceda MD 10/02/2018 E11.649 Type 2 diabetes mellitus with Samir Euceda MD hypoglycemia without coma 10/02/2018 K92.2 Gastrointestinal hemorrhage, unspecified Samir Euceda MD 10/02/2018 E66.01 Morbid (severe) obesity due to excess Samir Euceda MD calories 10/02/2018 K75.81 Nonalcoholic steatohepatitis ([place]) Samir Euceda MD 10/02/2018 D64.9 Anemia, unspecified Samir Euceda MD Plan of Treatment No Information Available Functional Status Description No Information Available Mental Status Description No Information Available Referrals Description No Information Available
--- OUTSIDE RECORDS SUMMARY | 2019-04-17 21:04 | XMS REPORT | Continuity of Care Document ---
:1940 External Reference #:[id number] Author Name Swapnil Horton M.D. (transmitted by agent of provider Sharon Soliz) Address [address] [place] [address] Care Team Providers Name Role Phone Neena Moyer MD - Internal Care Team Information Supervisor Cigarette Making Department Medicine Problems Active Problems Provider Date Primary [...] Carty, D.OTereza Onset: 03/11/2018 Thrombocytopenic disorder Jennifer Carty, D.O. Onset: 03/11/2018 Hypothyroidism Jennifer Carty D.O. [...] Medications SIG Qnty Indications Ordering Date Provider Lasix Please take one 1tabs Cami Davis, 03/09/2019 20mg Tablets tablet po, in CHIEF ULTRASOUND TECHNOLOGIST between rbc bag 1 and rbc bag 2 (infusions). Prilosec take 1 tab by 30caps Samir Prado 05/05/[address] mouth twice daily MD [place] Original as needed otc Unknown 325mg Tablets [...] Humulin N 25 units once daily 20ml Jairon Contreras MD 12/13/2018 - 100Unit/ML at bedtime [...] Result H/L Range Note Basic Metabolic 03/09/2019 [facility] Sodium 144 mmol/L Normal 135-145 Panel [address] [place] [address] [phone] Potassium 3.9 mmol/L Normal 3.5-5.0 Chloride 108 mmol/L Normal 101-111 Co2 Carbon Dioxide 33 mmol/L High 22-32 Anion Gap 3 mmol/L Normal 2-11 Glucose 72 mg/dL Normal 70-100 Blood Urea Nitrogen 18 mg/dL Normal 6-24 Creatinine 0.75 mg/dL Normal 0.51-0.95 BUN/Creatinine Ratio 24.0 High 8-20 Calcium 8.5 mg/dL Low 8.6-10.3 Egfr Non- 74.9 >60 Egfr 90.7 >60 1 CBC Auto 03/09/2019 [facility] White Blood 6.3 10^3/uL Normal 3.5-10.[address] [place] [address] [phone] Red Blood Count 2.80 10^6/uL Low 3.70-4.87 [...] Blood Cells % 0.0 Laboratory test 03/09/2019 [facility] Ferritin 108.1 ng/mL Normal 11-307 [address] [place] [address] [phone] Type & Screen 03/09/2019 [facility] Patient O Positive [address] [place] [place] [address] [phone] Antibody Screen NEGATIVE Laboratory test 03/09/2019 [facility] Packed Cells SEE RESULTS [address] BELO <SEE NOTE> [place] [address] [phone] Type & Screen 02/16/2019 [facility] Patient Blood O Positive [address] [place] [address] [phone] Antibody Screen NEGATIVE Laboratory test 02/16/2019 [facility] Packed Cells SEE RESULTS [address] BELO <[place] [address] NOTE> [phone] Stool Occult 11/07/2018 [facility] Stool Occult SEE RESULT 6 Blood Diag [address] Blood, [place] [address] [phone] Laboratory test 11/07/2018 [facility] Point of Care 312 mg/dL High 70-10 7 finding Glucose 0 [place] [address] [phone] Laboratory test 09/28/2018 [facility] B-Type 213 pg/mL High <= 100 finding [address] [place] [address] Peptide BNP [phone] Erythropoietin 46.4 mIU/mL Abnormal 2.6 - 18.5 8 CBC No Diff 09/28/2018 [facility] White Blood 5.3 10^3/uL Normal 3.5-10.8 [place] [address] [phone] Red Blood Count 3.19 10^6/uL Low 3.70-4.87 Hemoglobin 8.0 g/dL Low 12.0-16.0 Hematocrit 26 % Low 33-41 Mean Corpuscular Volume 82 fL Normal 80-97 Mean Corpuscular Hemoglobin 25 pg Low 27-31 Mean Corpuscular HGB Conc 30 g/dL Low 31-36 Red Cell Distribution Width 17 % High 10.5-15 Platelet Count 146 10^3/uL Low 150-450 Mean Platelet Volume 10.1 fL Normal 7.4-10.4 Laboratory test 09/28/2018 [facility] Ferritin 172.0 ng/mL Normal 11-307 finding [address] [place] [address] [phone] Basic Metabolic 09/28/2018 [facility] Sodium 144 mmol/L Normal 135-145 Panel [address] [place] [address] [phone] Potassium 3.7 mmol/L Normal 3.5-5.0 Chloride 107 [...] 5 Kidney failure <15 (or dialysis) 2 [facility] IS WAITING TO TALK TO DR EUCEDA AFTER RESULTS ARE COMPLETE. CALL RESULTS TO DR EUCEDA [phone] SEE RESULTS BELOW [id number] OP PC TRANSFUSED 03/09/19 1619 [id number] OP PC TRANSFUSED 03/09/19 1253 4 SOB PER EMS 5 SEE RESULTS BELOW [id number] OP PC TRANSFUSED 02/16/19 0624 [id number] OP PC TRANSFUSED 02/16/19 0345 [id number] OP PC TRANSFUSED 02/17/19 0814 6 SEE RESULT BELOW Name: ERIKA HANSEN : [address]: Samir Euceda MD Acct: [id number] Unit: [id number] AGE: 77 Location: [facility] Re11/07/18 SEX: F Status: REG REF SPEC: [id number] MONICA: 11/07/18 [facility] DR: Samir Euceda MD REQ: [id number] RECD: 11/07/18 STATUS: COMP [facility] DR: Neena Moyer MD _ SOURCE: STOOL SPDESC: ORDERED: Occult Bl, Diag Procedure Result Reported Site Stool Occult Blood (1) Final 11/07/18- 1444 ML Stool Occult Blood Positive * ML - Main Lab . END OF REPORT DEPARTMENT OF PATHOLOGY, [address] [place] [address] Mckay Gleason M.D. Director [facility] # [id number] 7 Appliance Installer: [id number] Test Performed by: [facility] [address] [facility], [place] [address] 9 Because ethnic data is not always [...] dialysis) Procedures Date Code Description Status 03/14/2019 68445 EKG Tracing & Interpretation Completed 12/27/2018 29300 Glucose Monitoring Interpetation And Report Completed 11/07/2018 30159 Esophagogastroduodenoscopy, diagnostic, incl brush/wash Completed if perfor 06/06/2018 [id number] Colonoscopy Completed 06/17/2016 [id number] Colonoscopy Completed 08/27/2008 [id number] Colonoscopy Completed 06/16/2004 [id number] Colonoscopy Completed Medical Devices Description No Information Available Encounters Type Date Location Provider Dx Diagnosis Office Visit 02/20/2019 [place] Kevin Martínez D62 Acute posthemorrhagic 9:10a Assoc,tong Mcclain anemia Hospitalists CHIEF ULTRASOUND TECHNOLOGIST J96.21 Acute and chronic respiratory failure with hypoxia I50.9 Heart failure, unspecified R50.9 Fever, unspecified B95.1 Streptococcus, group B, causing diseases classd elswhr N39.0 Urinary tract infection, site not specified Office Visit 02/19/2019 [facility] D62 Acute posthemorrhagic 9:10a Assoc,tong Mcclain anemia Hospitalists CHIEF ULTRASOUND TECHNOLOGIST J96.21 Acute and chronic respiratory failure with hypoxia K92.1 Melena R50.9 Fever, unspecified J96.11 Chronic respiratory failure with hypoxia K75.81 Nonalcoholic steatohepatitis ([place]) Office Visit 02/18/2019 9:09a [place] Kevin Calhoun D64.9 Anemia, Assoc,pc SOFIA Vu unspecified Hospitalists K92.1 Melena I50.9 Heart failure, unspecified R50.9 Fever, unspecified J44.9 Chronic obstructive pulmonary disease, unspecified E11.9 Type 2 diabetes mellitus without complications Office Visit 02/17/2019 9:09a [facility] Lj D64.9 Anemia, Assoc,pc [place], [place] unspecified Hospitalists K92.1 Melena I50.9 Heart failure, unspecified E11.9 Type 2 diabetes mellitus without complications Office Visit 02/16/2019 [facility] D64.9 Anemia, 9:08a Assoc,pc EZEQUIEL Coats unspecified Hospitalists D69.6 Thrombocytopenia, unspecified R06.02 Shortness of breath I25.5 Ischemic cardiomyopathy E11.9 Type 2 diabetes mellitus without complications Office Visit 01/06/2019 8:28a [facility] [place] Perry, R06.89 Other abnormalities Assoc,pc of breathing Hospitalists R06.02 Shortness of breath Office Visit 01/05/2019 8:27a [facility] [place] Perry MD R07.89 Other chest Assoc,pc Hospitalists pain R06.02 Shortness of breath Office Visit 12/27/2018 [place] Rolanda and Jairon Contreras, E11.65 Type 2 diabetes 10:40a Endocrinology of mellitus with Joint Cutter hyperglycemia Z79.4 care home (current) use of insulin I50.9 Heart failure, unspecified Z68.39 Body mass index (BMI) 39.0-39.9, adult Office Visit 12/13/2018 [place] Paige Contreras, E11.65 Type 2 diabetes 10:00a Endocrinology of mellitus with Joint Cutter hyperglycemia Z79.4 care home (current) use of insulin I50.9 Heart failure, unspecified Office Visit 11/16/2018 [facility] E11.00 Type 2 diab w 9:03a Assoc,tong Akbar M.D. hyprosm w/o nonket Hospitalists hyprgly-hypros coma ([facility]) E11.65 Type 2 diabetes mellitus with hyperglycemia Z79.4 care home (current) use of insulin J44.9 Chronic obstructive pulmonary disease, unspecified Office Visit 11/15/2018 [facility] E11.00 Type 2 diab w 9:00a Assoc,pc Robinson, M.D. hyprosm w/o nonket Hospitalists hyprgly-hypros coma ([facility]) D64.9 Anemia, unspecified I50.9 Heart failure, unspecified J44.9 Chronic obstructive pulmonary disease, unspecified Office Visit 11/14/2018 [facility] Gastroenterology Samir Prado R10.13 Epigastric pain 7:00a MD Aniket R74.8 Abnormal levels of other serum enzymes G47.10 Hypersomnia, unspecified Office Visit 11/14/2018 [facility] E11.00 Type 2 diab w 8:58a Assoc,pc [facility], DO hyprosm w/o nonket Hospitalists hyprgly-hypros coma ([facility]) E11.65 Type 2 diabetes mellitus with hyperglycemia J98.11 Atelectasis Office Visit 11/14/2018 8:58a Intensivists Jose J Lozano, K85.90 Acute pancreatitis M.D. without necrosis or infection, unsp K76.6 Portal hypertension Office 10/02/2018 [facility] Gastroenterology Samir Prado E11.649 Type 2 diabetes Visit 2:45p MD Aniket mellitus with hypoglycemia without coma K92.2 Gastrointestinal hemorrhage, unspecified E66.01 Morbid (severe) obesity due to excess calories K75.81 Nonalcoholic steatohepatitis ([place]) D64.9 Anemia, unspecified Assessments Date Code Description Provider 03/14/2019 R06.02 Shortness of breath Swapnil Horton M.D. 03/14/2019 I42.9 Congestive heart failure due to Swapnil Horton M.D. 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 03/08/2019 E66.9 Obesity, unspecified Samir Euceda MD 03/08/2019 K76.6 Portal hypertension Samir Euceda MD 02/20/2019 D62 Acute posthemorrhagic anemia Tanya Pascualzenobia, CHIEF ULTRASOUND TECHNOLOGIST 02/20/2019 J96.21 Acute and chronic respiratory failure Tanya Pascualzenobia, CHIEF ULTRASOUND TECHNOLOGIST with hypoxia 02/20/2019 I50.9 Heart failure, unspecified Tanya Tj Pascualzenobia, CHIEF ULTRASOUND TECHNOLOGIST 02/20/2019 R50.9 Fever, unspecified Tanya Tj Pascual, CHIEF ULTRASOUND TECHNOLOGIST 02/20/2019 B95.1 Streptococcus, group B, as the cause of Tanya Tj Samara, CHIEF ULTRASOUND TECHNOLOGIST diseases classified elsewhere 02/20/2019 N39.0 Urinary tract infection, site not Tanya Preciadofield Sarahi, CHIEF ULTRASOUND TECHNOLOGIST specified 02/19/2019 D62 Acute posthemorrhagic anemia Tanya Tj Pascualzenobia, CHIEF ULTRASOUND TECHNOLOGIST 02/19/2019 J96.21 Acute and chronic respiratory failure Tanya Pascualzenobia CHIEF ULTRASOUND TECHNOLOGIST with hypoxia 02/19/2019 K92.1 Liz Pascualzenobia, CHIEF ULTRASOUND TECHNOLOGIST 02/19/2019 R50.9 Fever, unspecified Tanya Tj Pascualzenobia, CHIEF ULTRASOUND TECHNOLOGIST 02/19/2019 J96.11 Chronic respiratory failure with hypoxia Tanya Pascualzenobia, CHIEF ULTRASOUND TECHNOLOGIST 02/19/2019 K75.81 Nonalcoholic steatohepatitis ([place]) Tanya Spencer Sarahi , CHIEF ULTRASOUND TECHNOLOGIST 02/18/2019 D64.9 Anemia, unspecified Lj Vu, PA 02/18/2019 K92.1 Liz Vu, PA 02/18/2019 I50.9 Heart failure, unspecified Lj Vu, PA 02/18/2019 R50.9 Fever, unspecified Lj Vu PA 02/18/2019 J44.9 Chronic obstructive pulmonary disease, Lj Vu PA unspecified 02/18/2019 E11.9 Type 2 diabetes mellitus without Lj Vu PA complications 02/17/2019 D64.9 Anemia, unspecified Lj Vu, PA 02/17/2019 K92.1 Liz Vu, PA 02/17/2019 I50.9 Heart failure, unspecified Lj Vu, PA 02/17/2019 E11.9 Type 2 diabetes mellitus without SOFIA Bianchi complications 02/16/2019 D64.9 Anemia, unspecified Lula Coats, CHIEF ULTRASOUND TECHNOLOGIST 02/16/2019 D69.6 Thrombocytopenia, unspecified Lula Coats, CHIEF ULTRASOUND TECHNOLOGIST 02/16/2019 R06.02 Shortness of breath Lula Coats, CHIEF ULTRASOUND TECHNOLOGIST 02/16/2019 I25.5 Ischemic cardiomyopathy Lula Coats, CHIEF ULTRASOUND TECHNOLOGIST 02/16/2019 E11.9 Type 2 diabetes mellitus without Lula Coats, EZEQUIEL complications 01/06/2019 R06.89 Other abnormalities of breathing [place] Perry MD 01/06/2019 R06.02 Shortness of breath Chapincito Perry MD 01/05/2019 R07.89 Other chest pain Chapincito Perry MD 01/05/2019 R06.02 Shortness of breath Chap[place] Perry MD 12/27/2018 E11.65 Type 2 diabetes mellitus with Jairon Contreras MD hyperglycemia 12/27/2018 Z79.4 care home (current) use of insulin Jairon Contreras MD 12/27/2018 I50.9 Heart failure, unspecified Jairon Contreras MD 12/27/2018 Z68.39 Body mass index (BMI) 39.0-39.9, adult Jairon Contreras MD 12/13/2018 E11.65 Type 2 diabetes mellitus with Jairon Contreras MD hyperglycemia 12/13/2018 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 hyprgly-hypros coma ([facility]) 11/16/2018 E11.65 Type 2 diabetes mellitus with Davie Akbar M.D. hyperglycemia 11/16/2018 Z79.4 care home (current) use of insulin Davie Akbar M.D. 11/16/2018 J44.9 Chronic obstructive pulmonary disease, Davie Akbar M.D. unspecified 11/15/2018 E11.00 Type 2 diab w farheenrosm w/o nonket Davie Akbar M.D. hyprgly-hypros coma ([facility]) 11/15/2018 D64.9 Anemia, unspecified Davie Akbar M.D. 11/15/2018 I50.9 Heart failure, unspecified Davie Akbar M.D. 11/15/2018 J44.9 Chronic obstructive pulmonary disease, Davie Akbar M.D. unspecified 11/14/2018 R10.13 Epigastric pain Samir Euceda MD 11/14/2018 K85.90 Acute pancreatitis without necrosis or Jose J Lozano M.D. infection, unsp 11/14/2018 R74.8 Abnormal levels of other serum enzymes Samir Euceda MD 11/14/2018 E11.00 Type 2 diab w hyprosm w/o nonket Marjorie Rooth, DO hyprgly-hypros coma ([facility]) 11/14/2018 G47.10 Hypersomnia, unspecified Samir Euceda MD 11/14/2018 K76.6 Portal hypertension Jose J Lozano M.D. 11/14/2018 E11.65 Type 2 diabetes mellitus with Marjorie Rooth, DO hyperglycemia 11/14/2018 J98.11 Atelectasis Marjorie Rootosman, DO 11/07/2018 K76.6 Portal hypertension Samir Euceda [...]
[2019-04-17] MEDS ORDERED: hydrALAZINE IV* 20 MG/ML VIAL IV SLOW PU ONE (21:23)
[2019-04-17 21:38] LABS: ABS Basophils 0.1 10^3/ul (0-0.2); ABS Eosinophils 0.3 10^3/ul (0-0.6); ABS Lymphocytes 0.8 10^3/ul (1.0-4.8); ABS Monocytes 0.5 10^3/ul (0-0.8); ABS Neutrophils 5.1 10^3/ul (1.5-7.7); Hematocrit 22 % (35-47); Hemoglobin 6.6 g/dL (12.0-16.0); Lymphocyte % 12.3 %; Mean Corpuscular HGB Conc 30 g/dL (31-36); Mean Corpuscular Hemoglobin 26 pg (27-31); Mean Corpuscular Volume 87 fL (80-97); Mean Platelet Volume 10.6 fL (7.4-10.4); Nucleated Red Blood Cells % 0.1; Platelet Count 164 10^3/uL (150-450); Red Blood Count 2.53 10^6 /uL (3.70-4.87); Red Cell Distribution Width 17 % (10-15); White Blood Count 6.9 10^3/uL (3.5-10.8)
[2019-04-17 21:48] LABS: Activated Partial Thrombo Time 31.5 seconds (26.0-38.0); INR 1.04 (0.82-1.09)
[2019-04-17 21:50] LABS: Albumin 3.2 g/dL (3.2-5.2); Albumin/Globulin Ratio 0.9 (1-3); BUN/Creatinine Ratio 20.2 (8-20); C Reactive Protein 7.13 mg/L (<8.01); Calcium 8.6 mg/dL (8.6-10.3); EGFR African American 62.2 (>60); EGFR Non-African American 51.4 (>60); Globulin 3.7 g/dL (2-4); Total Bilirubin 0.6 mg/dL (0.2-1.0); Total Protein 6.9 g/dL (6.4-8.9)
[2019-04-17 21:51] LABS: Troponin I 0.01 ng/mL (<0.04)
[2019-04-17] MEDS ORDERED: Albuterol/Ipratropium NEB.SOL* Albuterol 2.5 MG/Ipratropium 0.5 MG 3 ML INH ONE (22:07)
[2019-04-17] MEDS ORDERED: Furosemide IV* 10 MG/ML 2 ML VIAL (20 MG) IV SLOW PU ONE (22:07)
[2019-04-17] MEDS ORDERED: Insulin REGULAR(*) 1 UNITS UNIT SUBCUT ONE (22:08)
--- NOTE | 2019-04-18 | ED ---
Shortness of Breath - HPI Summary HPI Summary: 78 year old female presents with shortness of breath today. States she's been feeling like she has more fluid on her. She states that she not able to lay back without having extreme short of breath. She also been wheezing and coughing up white sputum. She also states she wiped and noticed some bright red blood when she wiped. Never had this before. She has a history of chronic GI bleed that follow-up with Dr. Marcial. States that she never seen gross blood. She been having intermittent abdominal pain but none currently. She denies any chest pain. Denies any nausea or vomiting. No fevers. She was given 2 breathing treatment by EMS with improvement. Has history of iron deficiency and gets iron transfusion. gets blood transfusions every once in a while. Last blood transfusion was a month and a half ago. - History of Current Complaint Chief Complaint: EDShortnessOfBreath Time Seen by Provider: 04/17/19 20:59 - Allergy/Home Medications Allergies/Adverse Reactions: Allergies Allergy/AdvReac Type Severity Reaction Status Date / Time captopril Allergy Severe Hives Verified 02/16/19 01:45 PMH/Surg Hx/FS Hx/Imm Hx Endocrine/Hematology History: Reports: Hx Blood Transfusions, Hx Diabetes, Hx Thyroid Disease, Hx Anemia - chronic iron infusions Cardiovascular History: Reports: Hx Angina, Hx Congestive Heart Failure, Hx Coronary Artery Disease, Hx Hypercholesterolemia, Hx Hypertension, Other Cardiovascular Problems/Disorders - cardiomyopathy Denies: Hx Myocardial Infarction, Hx Pacemaker/ICD Respiratory History: Reports: Hx Asthma, Hx Chronic Obstructive Pulmonary Disease (COPD), Hx Sleep Apnea, Other Respiratory Problems/Disorders - emphysema GI History: Reports: Hx Cirrhosis, Hx Gastroesophageal Reflux Disease, Hx Gastrointestinal Bleed, Hx Hiatal Hernia - s/p repair, Hx Ulcer, Other GI Disorders - HELICOBACTER INFECTION History: Reports: Hx Chronic Renal Failure - Stage 3, Hx Renal Disease, Other Problems/Disorders - CKD stage 3 Musculoskeletal History: Reports: Hx Arthritis, Hx Back Problems, Other Musculoskeletal History - spinal stenosis Sensory History: Reports: Hx Cataracts - surgery with implants bilat eyes 96, Hx Contacts or Glasses Denies: Hx Deafness, Hx Hearing Aid Opthamlomology History: Reports: Hx Cataracts - surgery with implants bilat eyes 96, Hx Contacts or Glasses Neurological History: Reports: Other Neuro Impairments/Disorders - vertigo Psychiatric History: Reports: Hx Anxiety, Hx Depression, Other Psychiatric Issues/Disorders - PT REPORTS"STRESS" AND SAYS HER MD GAVE HER A MED FOR IT, UNSURE WHAT Denies: Hx Panic Disorder - Cancer History Hx Chemotherapy: No Hx Radiation Therapy: No Hx Palliative Cancer Treatment: No - Surgical History Surgery Procedure, Year, and Place: HERNIA. HYSTERECTOMY. CATERACTS. CARPAL TUNNEL. CYSTS REMOVED FROM BILATERAL ARMPITS. RTC RT. LT FOOT SURGERY Hx Anesthesia Reactions: No - Immunization History Date of Tetanus Vaccine: > 10 yers Date of Influenza Vaccine: [id number] Immunizations Up to Date: Yes Infectious Disease History: No Infectious Disease History: Denies: Hx Clostridium Difficile, Hx Hepatitis, Hx Human Immunodeficiency Virus (HIV), Hx of Known/Suspected MRSA, Hx Shingles, Hx Tuberculosis, History Other Infectious Disease, Traveled Outside the [place] in Last 30 Days - Family History Known Family History: Positive: Diabetes, Other - Yes - CHF (Mother) - Social History Alcohol Use: None Hx Substance Use: No Substance Use Type: Reports: None Hx Tobacco Use: Yes Smoking Status (MU): Former Smoker Have You Smoked in the Last Year: No Review of Systems Negative: Fever Negative: Chest Pain Positive: Cough. Negative: Shortness Of Breath Positive: Abdominal Pain, Other - blood in stool All Other Systems Reviewed And Are Negative: Yes Physical Exam Triage Information Reviewed: Yes Vital Signs On Initial Exam: Initial Vitals Temp Pulse Resp BP Pulse Ox 99.2 F 94 19 197/78 99 04/17/19 20:51 04/17/19 20:51 04/17/19 20:51 04/17/19 20:51 04/17/19 20:51 Vital Signs Reviewed: Yes Appearance: Positive: Well-Appearing Skin: Positive: Warm, Dry Head/Face: Positive: Normal Head/Face Inspection Eyes: Positive: Normal, Conjunctiva Clear ENT: Positive: Pharynx normal Respiratory/Lung Sounds: Positive: Decreased Breath Sounds, Rales Cardiovascular: Positive: Normal, RRR Abdomen Description: Positive: Nontender, Soft, Other: - hemorrhoids present, no active bleed. Negative: CVA Tenderness (R), CVA Tenderness (L) Bowel Sounds: Positive: Present Musculoskeletal: Positive: Normal, Edema Left, Edema Right Neurological: Positive: Normal Psychiatric: Positive: Normal Procedures - Sedation Patient Received Moderate/Deep Sedation with Procedure: No Diagnostics - Vital Signs Vital Signs Temp Pulse Resp BP Pulse Ox 04/17/19 23:00 89 21 100 04/17/19 22:57 89 24 187/83 100 04/17/19 22:45 87 25 176/79 100 04/17/19 22:43 89 24 192/78 100 04/17/19 22:16 88 19 199/75 100 04/17/19 22:04 88 21 164/71 99 04/17/19 22:00 89 22 99 04/17/19 21:03 94 19 207/113 98 04/17/19 21:02 97 25 97 04/17/19 20:51 99.2 F 94 19 197/78 99 - Laboratory Lab Results: Lab Results 04/17/19 04/17/19 04/17/19 Range/Units 21:23 21:23 21:23 WBC 6.9 (3.5-10.8) 10^3/uL RBC 2.53 L (3.70-4.87) 10^6 /uL Hgb 6.6 L (12.0-16.0) g/dL Hct 22 L (35-47) % MCV 87 (80-97) fL MCH 26 L (27-31) pg MCHC 30 L (31-36) g/dL RDW 17 H (10-15) % Plt Count 164 (150-450) 10^3/uL MPV 10.6 H (7.4-10.4) fL Neut % (Auto) 74.5 % Lymph % (Auto) 12.3 % [place] % (Auto) 7.4 % Eos % (Auto) 5.0 % Baso % (Auto) 0.8 % Absolute Neuts (auto) 5.1 (1.5-7.7) 10^3/ul Absolute Lymphs (auto) 0.8 L (1.0-4.8) 10^3/ul Absolute Monos (auto) 0.5 (0-0.8) 10^3/ul Absolute Eos (auto) 0.3 (0-0.6) 10^3/ul Absolute Basos (auto) 0.1 (0-0.2) 10^3/ul Absolute Nucleated RBC 0.0 10^3/ul Nucleated RBC % 0.1 INR (Anticoag Therapy) (0.82-1.09) APTT (26.0-38.0) seconds VBG pH (7.32-7.43) VBG pCO2 (41-51) mmHg VBG pO2 (35-45) mmHg VBG HCO3 (24-28) mmol/L VBG O2 Saturation (70-80) % VBG Base Excess (0.0-4.0) mmol/L Sodium 135 (135-145) mmol/L Potassium 4.0 (3.5-5.0) mmol/L Chloride 101 (101-111) mmol/L Carbon Dioxide 29 (22-32) mmol/L Anion Gap 5 (2-11) mmol/L BUN 21 (6-24) mg/dL Creatinine 1.04 H (0.51-0.95) mg/dL Est GFR ( Amer) 62.2 (>60) Est GFR (Non-Af Amer) 51.4 (>60) BUN/Creatinine Ratio 20.2 H (8-20) Glucose 498 H (70-100) mg/dL Lactic Acid 1.6 (0.5-2.0) mmol/L Calcium 8.6 (8.6-10.3) mg/dL Total Bilirubin 0.60 (0.2-1.0) mg/dL AST 28 (13-39) U/L ALT 29 (7-52) U/L Alkaline Phosphatase 196 H (34-104) U/L Troponin I 0.01 (<0.04) ng/mL C-Reactive Protein 7.13 (<8.01) mg/L B-Natriuretic Peptide (<=100) pg/mL Total Protein 6.9 (6.4-8.9) g/dL Albumin 3.2 (3.2-5.2) g/dL Globulin 3.7 (2-4) g/dL Albumin/Globulin Ratio 0.9 L (1-3) Lipase 89 H (11.0-82.0) U/L Blood Type Antibody Screen Crossmatch 04/17/19 04/17/19 04/17/19 Range/Units 21:23 21:23 21:23 WBC (3.5-10.8) 10^3/uL RBC (3.70-4.87) 10^6 /uL Hgb (12.0-16.0) g/dL Hct (35-47) % MCV (80-97) fL MCH (27-31) pg MCHC (31-36) g/dL RDW (10-15) % Plt Count (150-450) 10^3/uL MPV (7.4-10.4) fL Neut % (Auto) % Lymph % (Auto) % [place] % (Auto) % Eos % (Auto) % Baso % (Auto) % Absolute Neuts (auto) (1.5-7.7) 10^3/ul Absolute Lymphs (auto) (1.0-4.8) 10^3/ul Absolute Monos (auto) (0-0.8) 10^3/ul Absolute Eos (auto) (0-0.6) 10^3/ul Absolute Basos (auto) (0-0.2) 10^3/ul Absolute Nucleated RBC 10^3/ul Nucleated RBC % INR (Anticoag Therapy) 1.04 (0.82-1.09) APTT 31.5 (26.0-38.0) seconds VBG pH (7.32-7.43) VBG pCO2 (41-51) mmHg VBG pO2 (35-45) mmHg VBG HCO3 (24-28) mmol/L VBG O2 Saturation (70-80) % VBG Base Excess (0.0-4.0) mmol/L Sodium (135-145) mmol/L Potassium (3.5-5.0) mmol/L Chloride (101-111) mmol/L Carbon Dioxide (22-32) mmol/L Anion Gap (2-11) mmol/L BUN (6-24) mg/dL Creatinine (0.51-0.95) mg/dL Est GFR ( Amer) (>60) Est GFR (Non-Af Amer) (>60) BUN/Creatinine Ratio (8-20) Glucose (70-100) mg/dL Lactic Acid (0.5-2.0) mmol/L Calcium (8.6-10.3) mg/dL Total Bilirubin (0.2-1.0) mg/dL AST (13-39) U/L ALT (7-52) U/L Alkaline Phosphatase (34-104) U/L Troponin I (<0.04) ng/mL C-Reactive Protein (<8.01) mg/L B-Natriuretic Peptide 184 H (<=100) pg/mL Total Protein (6.4-8.9) g/dL Albumin (3.2-5.2) g/dL Globulin (2-4) g/dL Albumin/Globulin Ratio (1-3) Lipase (11.0-82.0) U/L Blood Type O Positive Antibody Screen Negative Crossmatch See Detail 04/17/19 Range/Units 21:23 WBC (3.5-10.8) 10^3/uL RBC (3.70-4.87) 10^6 /uL Hgb (12.0-16.0) g/dL Hct (35-47) % MCV (80-97) fL MCH (27-31) pg MCHC (31-36) g/dL RDW (10-15) % Plt Count (150-450) 10^3/uL MPV (7.4-10.4) fL Neut % (Auto) % Lymph % (Auto) % [place] % (Auto) % Eos % (Auto) % Baso % (Auto) % Absolute Neuts (auto) (1.5-7.7) 10^3/ul Absolute Lymphs (auto) (1.0-4.8) 10^3/ul Absolute Monos (auto) (0-0.8) 10^3/ul Absolute Eos (auto) (0-0.6) 10^3/ul Absolute Basos (auto) (0-0.2) 10^3/ul Absolute Nucleated RBC 10^3/ul Nucleated RBC % INR (Anticoag Therapy) (0.82-1.09) APTT (26.0-38.0) seconds VBG pH 7.39 (7.32-7.43) VBG pCO2 55 H (41-51) mmHg VBG pO2 38.0 (35-45) mmHg VBG HCO3 29.2 H (24-28) mmol/L VBG O2 Saturation 62.0 L (70-80) % VBG Base Excess 6.7 H (0.0-4.0) mmol/L Sodium (135-145) mmol/L Potassium (3.5-5.0) mmol/L Chloride (101-111) mmol/L Carbon Dioxide (22-32) mmol/L Anion Gap (2-11) mmol/L BUN (6-24) mg/dL Creatinine (0.51-0.95) mg/dL Est GFR ( Amer) (>60) Est GFR (Non-Af Amer) (>60) BUN/Creatinine Ratio (8-20) Glucose (70-100) mg/dL Lactic Acid (0.5-2.0) mmol/L Calcium (8.6-10.3) mg/dL Total Bilirubin (0.2-1.0) mg/dL AST (13-39) U/L ALT (7-52) U/L Alkaline Phosphatase (34-104) U/L Troponin I (<0.04) ng/mL C-Reactive Protein (<8.01) mg/L B-Natriuretic Peptide (<=100) pg/mL Total Protein (6.4-8.9) g/dL Albumin (3.2-5.2) g/dL Globulin (2-4) g/dL Albumin/Globulin Ratio (1-3) Lipase (11.0-82.0) U/L Blood Type Antibody Screen Crossmatch Result Diagrams: 04/17/19 21:23 04/17/19 21:23 Lab Statement: Any lab studies that have been ordered have been reviewed, and results considered in the medical decision making process. - EKG No standard instances Cardiac Rate: NL EKG Rhythm: Sinus Rhythm EKG Comparison: No Significant Change Summary of EKG Findings: sinus rhythm Re-Evaluation - Re-Evaluation First Eval Comment: wheeze is returning so will give breathing treatment Second Eval Re-Evaluation Time: 00:23 Change: Improved Comment: feeling better after lasix and breathing treatment Course/Dx - Course Course Of Treatment: 78 year old female presents with shortness of breath today. States she's been feeling like she has more fluid on her. She states that she not able to lay back without having extreme short of breath. She also been wheezing and coughing up white sputum. She also states she wiped and noticed some bright red blood when she wiped. Never had this before. She has a history of chronic GI bleed that follow-up with Dr. Marcial. States that she never seen gross blood. She been having intermittent abdominal pain but none currently. She denies any chest pain. Denies any nausea or vomiting. No fevers. She was given 2 breathing treatment by EMS with improvement. Has history of iron deficiency and gets iron transfusion. gets blood transfusions every once in a while. Last blood transfusion was a month and a half ago. On exam decreased breath sounds noted with some rales. Has edema to legs. Abdomen soft nontender. No gross blood on rectal exam. Does have hemorrhoids. wbc normal. Hemoglobin is 6.6 which is lower than last time. Occult blood is positive. With these discussed with Dr. Bowen do a blood transfusion. Gave Lasix and is feeling better. BNP is 184. Troponin is 0.03. EKG shows sinus rhythm. Chest x-ray similar to previous chest x-rays. Glucose is 498. gave breathing treatment as wheezing returned. gave 2 bags of PRBC. gave hydrazaline for htn. discussed case with dr wick who agrees to admit. - Diagnoses Differential Diagnosis/HQI/PQRI: Positive: CHF, COPD Exacerbation Provider Diagnoses: Hyperglycemia, COPD (chronic obstructive pulmonary disease), CHF (congestive heart failure), Iron deficiency anemia due to chronic blood loss, Hypertension, GI bleed - Critical Care Time Critical Care Time: 30-74 min - 60 mins Discharge ED - Sign-Out/Discharge Documenting (check all that apply): Patient Departure - Discharge Plan Condition: Stable Disposition: ADMITTED TO [facility] Referrals: Neena Moyer MD [Primary Care Provider] - - Billing Disposition and Condition Condition: STABLE Disposition: Admitted to [facility]
[2019-04-18] MEDS ORDERED: Nitroglycerin TAB 0.4 MG* 0.4 MG TAB SL PRN (04:06)
[2019-04-18] MEDS ORDERED: Albuterol HFA INHALER* 8 gm MDI INH PRN (04:06)
[2019-04-18] MEDS ORDERED: Nystatin TOP POWDER* 15 GM BTL TOPICAL PRN (04:06)
[2019-04-18] MEDS ORDERED: oxyCODONE TAB* 5 MG TAB PO PRN (04:06)
[2019-04-18] MEDS ORDERED: Triamcinolone 0.025% OINT * 15 GM TUBE TOPICAL PRN (04:06)
[2019-04-18] MEDS ORDERED: Calcium Carbonate CHEW TAB* 500 MG (TUMS) PO PRN (04:06)
[2019-04-18] MEDS: Insulin NPH(*) 1 UNITS UNIT SUBCUT SCH ×2 (04:42→17:22)
[2019-04-18] MEDS ORDERED: Simethicone TAB* 80 MG TAB.CHEW PO PRN (05:29)
[2019-04-18] MEDS: Levothyroxine TAB* 25 MCG TAB PO SCH (06:38)
[2019-04-18] MEDS ORDERED: Insulin LISPRO* 1 UNITS UNIT SUBCUT SCH ×2 (08:00→12:00)
[2019-04-18 08:53] LABS: ABS Basophils 0.1 10^3/ul (0-0.2); ABS Eosinophils 0.4 10^3/ul (0-0.6); ABS Lymphocytes 0.8 10^3/ul (1.0-4.8); ABS Monocytes 0.4 10^3/ul (0-0.8); ABS Neutrophils 5.1 10^3/ul (1.5-7.7); Eosinophil % 5.2 %; Hematocrit 28 % (35-47); Hemoglobin 8.9 g/dL (12.0-16.0); Lymphocyte % 11.7 %; Mean Corpuscular HGB Conc 32 g/dL (31-36); Mean Corpuscular Hemoglobin 27 pg (27-31); Mean Corpuscular Volume 83 fL (80-97); Mean Platelet Volume 9.1 fL (7.4-10.4); Nucleated Red Blood Cells % 0.1; Platelet Count 142 10^3/uL (150-450); Red Blood Count 3.32 10^6 /uL (3.70-4.87); Red Cell Distribution Width 17 % (10-15); White Blood Count 6.7 10^3/uL (3.5-10.8)
[2019-04-18] MEDS ORDERED: Bumetanide TAB* 2 MG PO SCH (09:00)
[2019-04-18] MEDS: Bumetanide TAB* 2 MG PO SCH ×2 (09:05→13:19)
[2019-04-18] MEDS: Spironolactone TAB* 25 MG PO SCH ×2 (09:05→20:14)
[2019-04-18] MEDS: Losartan TAB* 25 MG PO SCH (09:05)
[2019-04-18] MEDS: Pantoprazole TAB * 40 MG TAB PO SCH ×2 (09:05→20:14)
[2019-04-18] MEDS: Potassium Chlor TAB* 20 MEQ TAB.ER PO SCH ×2 (09:05→20:13)
[2019-04-18] MEDS: Carvedilol TAB* 25 MG PO SCH ×2 (09:05→20:14)
[2019-04-18] MEDS: Multivitamins/Minerals TAB PO SCH (09:05)
[2019-04-18] MEDS: Atorvastatin* 10 MG TAB PO SCH (09:05)
[2019-04-18] MEDS: Cyanocobalamin TAB* 500 MCG PO SCH (09:05)
[2019-04-18 09:08] LABS: BUN/Creatinine Ratio 18.9 (8-20); Calcium 8.5 mg/dL (8.6-10.3); Potassium 3.5 mmol/L (3.5-5.0)
--- NOTE | 2019-04-18 09:20 | HP ---
CC: Dr. Neena Moyer * ADMISSION HISTORY AND PHYSICAL: DATE OF ADMISSION: 04/18/19 PRIMARY CARE PROVIDER: Dr. Neena Moyer. PRIMARY LEAD VULCANIZING OPERATOR: Dr. Swapnil Horton. PRIMARY SCHOOL CHILDCARE ATTENDANT: Dr. Marcial. CHIEF COMPLAINT: Shortness of breath and increasing leg swelling. HISTORY OF PRESENT ILLNESS: This is a 78-year-old female with past medical history of insulin-dependent diabetes, morbid obesity, portal hypertensive gastropathy, esophageal varices, duodenal AVMs, peptic ulcer disease, nonischemic cardiomyopathy with EF of 45% to 50% and diastolic dysfunction, COPD with p.r.n. 2 L nasal cannula, and iron- deficiency anemia, status post multiple iron infusions, presented to the ER with worsening shortness of breath. The patient stated that she has been having worsening shortness of breath and today when she wiped, she noticed that she was having bright red blood on the tissue. This was never present before even though she does have a history of chronic GI bleed. This along with her worsening shortness of breath , increasing leg swelling, and wheezing made her come to the ER for further evaluation. She also had accompanying dry cough but no chest pain. She has been having some nausea, intermittent abdominal pain, and decreased appetite, so she also stopped taking her insulin as she was not feeling like she was going to be able to keep any food in. She denies any fever or chills. She does have chronic pain, but no other numbness or tingling. PAST MEDICAL HISTORY: As mentioned, type 2 diabetes, now on insulin; morbid obesity; anemia with portal hypertensive gastropathy, esophageal varices, duodenal AVMs, peptic ulcer disease, and iron deficiency requiring monthly iron infusion and multiple blood transfusion; nonischemic cardiomyopathy with diastolic function, EF of 45% to 50%; COPD with intermittent use of 2 L nasal cannula; hypertension; chronic kidney disease stage 3; spinal stenosis; hyperlipidemia; hypothyroidism; diabetic neuropathy; cyst on her adrenal glands ; and vertigo. PAST SURGICAL HISTORY: She has had a hysterectomy, umbilical hernia repair, bilateral carpal tunnel release surgery, left foot surgery, rotator cuff surgery , and bilateral cataract surgery. HOME MEDICATIONS: The patient is currently on: 1. Oxycodone 5 mg q.6 hours p.r.n. for pain. 2. Triamcinolone cream topical daily p.r.n. 3. Terazosin 10 mg daily at bedtime. 4. Spironolactone 50 mg p.o. b.i.d. 5. Simvastatin 20 mg oral daily. 6. Potassium chloride 20 mEq p.o. b.i.d. 7. Omeprazole 20 mg p.o. b.i.d. 8. Nystatin powder topical b.i.d. p.r.n. 9. Nitroglycerin 0.3 mg q.5 minutes p.r.n. for chest pain. 10. Multivitamins 1 tablet oral daily. 11. Cozaar 50 mg oral daily. 12. Levothyroxine 25 mcg oral daily. 13. Humulin N 25 units daily at bedtime. 14. Lispro insulin 35 units with breakfast and 30 units at lunch and dinner. 15. Vitamin B12 1000 mcg oral daily. 16. Carvedilol 25 mg p.o. b.i.d. 17. Esme-[place] Heartburn and Gas 1 tablet p.o. daily p.r.n. for indigestion. 18. Bumex 2 mg p.o. b.i.d. 19. Ventolin HFA 2 puffs by inhalation q.4 hours p.r.n. ALLERGIES: The patient is documented to have allergies to CAPTOPRIL, which causes hives. FAMILY HISTORY: Mother had diabetes, heart disease, and dementia. SOCIAL HISTORY: She is a former smoker, smoked 3 packs a day for 25 years, quit in 2001. Denies any other alcohol or drug use. 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 She is otherwise full code. REVIEW OF SYSTEMS: A 14-point review of systems did not reveal any new information other than what is mentioned in the HPI. PHYSICAL EXAMINATION GENERAL: The patient is awake, alert, oriented to place and person. VITAL SIGNS: In the ER, BP was initially elevated to 207/113, during my evaluation it improved to 147/59; heart rate 85; respiration rate 23, saturating 99% on 2 L nasal cannula; temperature was documented at 99.2. HEAD AND NECK: Atraumatic, normocephalic. Bilateral pupils reactive. Oral mucosa was moist. NECK: Supple. No jugular venous distention. LUNGS: Clear to auscultation bilaterally. No wheezing, rhonchi, or rales. HEART: S1, S2. Systolic murmur present. ABDOMEN: Obese, soft, nontender, nondistended. EXTREMITIES: The patient has bilateral chronic venous stasis changes with lower extremity edema. Overall lower extremities are very dry. DIAGNOSTIC STUDIES/LAB DATA: CBC showed severe anemia with hemoglobin of 6.6, hematocrit of 22, platelet count was noted to be normal at 154, WBC was normal. Coagulation profile was normal. VBG showed pH of 7.39. Comprehensive metabolic panel showed minimally elevated creatinine at 1.04. When compared to her baseline creatinine, this was essentially her normal. Random glucose was elevated at 498 and repeat glucose level higher than 473. Lipase was minimally elevated at 89. Portable chest x-ray was unchanged from her previous x-ray from 02/18/19, which was read as patchy density overlying the right lung. Official read of the chest x-ray is still pending. EKG showed sinus rhythm at 93 beats per minute without any ST elevation. When compared to her previous EKG from 2 months ago, it is essentially unchanged. IMPRESSION: This is a 78-year-old female, here due to shortness of breath, likely multifactorial from symptomatic anemia versus [id number] congestive heart failure. ASSESSMENT: 1. Severe anemia with Hemoccult positive. The patient already received 2 units of packed RBCs. We will monitor the patient's hemoglobin with the morning labs and consider further transfusion as necessary. We can consider consultation with GI in the morning to see if she would benefit from any further testing. The patient does have a previous documentation of portal hypertensive gastropathy, esophageal varices, duodenal arteriovenous malformations, and peptic ulcer disease, all of which along with her iron deficiency can contribute to the anemia. 2. [id number] congestive heart failure. We will restart her diuretics. 3. Uncontrolled sugars. We will restart her home insulin regimen and titrate up accordingly based on her fingerstick monitoring. 4. History of hypertension, initially was uncontrolled in the ER, improved with hydralazine. We will restart home medications and follow up her blood pressure. 5. History of chronic obstructive pulmonary disease. Restart home medications. 6. History of spinal stenosis and diabetic neuropathy. Restart pain medications the patient is on at home. 7. History of dyslipidemia. Restart statin. 8. History of hypothyroidism. Restart levothyroxine. 9. DVT prophylaxis: The patient does score high for the DVT prophylaxis recommendation, but for now, we will only start the patient on SCDs as Lovenox would be contraindicated given her admission for anemia. 10. Code status: The patient is currently full code, designating her and daughter as surrogate decision makers. [id number]/CPS #: [id number]
[2019-04-18] MEDS ORDERED: Furosemide TAB* 40 MG PO ONE (10:43)
--- NOTE | 2019-04-18 10:51 | PN ---
Subjective Date of Service: 04/18/19 Interval History: Patient felt SOB improved. No further fresh blood seen. Reviewed her history, She was on regular iron infusion every 1.5 month, due this week. She had 4 blood transfusions in total this year, one in Jun, one between Jun to November, one in Feb, the last one is this adm. She apparently requires more frequent transfusions recently. Objective Active Medications: Albuterol/Ipratropium (Duoneb (Albuterol 2.5 Mg/Ipratropium 0.5 Mg)) 1 neb INH [id number] AWAKE [facility] Atorvastatin Calcium (Lipitor*) 10 mg PO DAILY [facility] Last Admin: 04/18/19 09:05 Dose: 10 mg Bumetanide (Bumex Tab*) 2 mg PO 0600,1400 [facility] Last Admin: 04/18/19 09:05 Dose: 2 mg Calcium Carbonate (Tums*) 1 mg PO DAILY PRN PRN Reason: INDIGESTION Carvedilol (Coreg Tab*) 25 mg PO BID [facility] Last Admin: 04/18/19 09:05 Dose: 25 mg Cyanocobalamin (Vitamin B12 Tab*) 1,000 mcg PO DAILY [facility] Last Admin: 04/18/19 09:05 Dose: 1,000 mcg Insulin Human Lispro (Humalog*) 30 units SUBCUT 1200,1700 [facility] Insulin Human Lispro (Humalog*) 35 units SUBCUT 0800 [facility] Last Admin: 04/18/19 09:04 Dose: 35 units Insulin Human NPH (Insulin Nph(*)) 25 units SUBCUT QPM [facility] Last Admin: 04/18/19 04:42 Dose: 25 units Levothyroxine Sodium (Synthroid Tab*) 25 mcg PO DAILY@0600 [facility] Last Admin: 04/18/19 06:38 Dose: 25 mcg Losartan Potassium (Cozaar Tab*) 50 mg PO DAILY [facility] Last Admin: 04/18/19 09:05 Dose: 50 mg Multivitamins/Minerals (Theragran/Minerals Tab*) 1 tab PO DAILY [facility] Last Admin: 04/18/19 09:05 Dose: 1 tab Nitroglycerin (Nitroglycerin Tab 0.4 Mg*) 0.4 mg SL Q5M PRN PRN Reason: ANGINA Nystatin (Nystatin Top Powder*) 1 applic TOPICAL BID PRN PRN Reason: ITCHING Oxycodone HCl (Roxycodone Tab*) 5 mg PO Q6H PRN PRN Reason: PAIN Pantoprazole Sodium (Protonix Tab*) 40 mg PO BID [facility] Last Admin: 04/18/19 09:05 Dose: 40 mg Potassium Chloride (Klor Con Er Tab*) 20 meq PO BID [facility] Last Admin: 04/18/19 09:05 Dose: 20 meq Simethicone (Mylicon Tab*) 80 mg PO DAILY PRN PRN Reason: gas Spironolactone (Aldactone Tab*) 50 mg PO BID [facility] Last Admin: 04/18/19 09:05 Dose: 50 mg Terazosin HCl (Hytrin Cap*) 10 mg PO BEDTIME [facility] Triamcinolone Acetonide (Triamcinolone 0.025% Oint *) 1 applic TOPICAL DAILY PRN PRN Reason: RASH Vital Signs - 8 hr 04/18/19 04/18/19 04/18/19 02:50 03:00 03:05 Temperature Pulse Rate 85 85 85 Respiratory 24 21 24 Rate Blood Pressure 137/57 143/53 (mmHg) O2 Sat by Pulse 99 99 99 Oximetry 04/18/19 04/18/19 04/18/19 03:14 03:20 03:35 Temperature Pulse Rate 85 84 84 Respiratory 23 23 22 Rate Blood Pressure 154/60 148/62 152/63 (mmHg) O2 Sat by Pulse 99 100 99 Oximetry 04/18/19 04/18/19 04/18/19 03:50 03:55 04:00 Temperature Pulse Rate 85 85 86 Respiratory 23 25 29 Rate Blood Pressure 155/63 142/56 (mmHg) O2 Sat by Pulse 100 99 99 Oximetry 04/18/19 04/18/19 04/18/19 04:27 04:56 05:00 Temperature Pulse Rate 88 88 88 Respiratory Rate Blood Pressure 165/71 148/70 (mmHg) O2 Sat by Pulse 100 99 99 Oximetry 04/18/19 04/18/19 04/18/19 05:26 05:55 06:18 Temperature 99.2 F 98.4 F Pulse Rate 90 86 93 Respiratory 24 20 Rate Blood Pressure 160/67 160/67 181/63 (mmHg) O2 Sat by Pulse 99 99 100 Oximetry 04/18/19 04/18/19 04/18/19 06:21 06:53 07:15 Temperature 98.4 F 98.2 F 98.7 F Pulse Rate 88 89 87 Respiratory 22 22 20 Rate Blood Pressure 179/62 176/63 170/61 (mmHg) O2 Sat by Pulse 100 100 100 Oximetry Oxygen Devices in Use Now: Nasal Cannula Exam: Appearance: alert, more comfortable with InO2 Respiratory: diffuse wheezing Cardiovascular: NL Sounds; No Murmurs; No JVD Abdominal:NL Sounds; No Tenderness; No Distention Extremities: mild bilateral swelling Result Diagrams: 04/18/19 08:42 04/18/19 08:42 Additional Lab and Data: Lab Results 04/17/19 04/17/19 04/17/19 Range/Units 21:23 21:23 21:23 WBC 6.9 (3.5-10.8) 10^3/uL RBC 2.53 L (3.70-4.87) 10^6 /uL Hgb 6.6 L (12.0-16.0) g/dL Hct 22 L (35-47) % MCV 87 (80-97) fL MCH 26 L (27-31) pg MCHC 30 L (31-36) g/dL RDW 17 H (10-15) % Plt Count 164 (150-450) 10^3/uL MPV 10.6 H (7.4-10.4) fL Neut % (Auto) 74.5 % Lymph % (Auto) 12.3 % [place] % (Auto) 7.4 % Eos % (Auto) 5.0 % Baso % (Auto) 0.8 % Absolute Neuts (auto) 5.1 (1.5-7.7) 10^3/ul Absolute Lymphs (auto) 0.8 L (1.0-4.8) 10^3/ul Absolute Monos (auto) 0.5 (0-0.8) 10^3/ul Absolute Eos (auto) 0.3 (0-0.6) 10^3/ul Absolute Basos (auto) 0.1 (0-0.2) 10^3/ul Absolute Nucleated RBC 0.0 10^3/ul Nucleated RBC % 0.1 INR (Anticoag Therapy) (0.82-1.09) APTT (26.0-38.0) seconds VBG pH (7.32-7.43) VBG pCO2 (41-51) mmHg VBG pO2 (35-45) mmHg VBG HCO3 (24-28) mmol/L VBG O2 Saturation (70-80) % VBG Base Excess (0.0-4.0) mmol/L Sodium 135 (135-145) mmol/L Potassium 4.0 (3.5-5.0) mmol/L Chloride 101 (101-111) mmol/L Carbon Dioxide 29 (22-32) mmol/L Anion Gap 5 (2-11) mmol/L BUN 21 (6-24) mg/dL Creatinine 1.04 H (0.51-0.95) mg/dL Est GFR ( Amer) 62.2 (>60) Est GFR (Non-Af Amer) 51.4 (>60) BUN/Creatinine Ratio 20.2 H (8-20) Glucose 498 H (70-100) mg/dL Lactic Acid 1.6 (0.5-2.0) mmol/L Calcium 8.6 (8.6-10.3) mg/dL Total Bilirubin 0.60 (0.2-1.0) mg/dL AST 28 (13-39) U/L ALT 29 (7-52) U/L Alkaline Phosphatase 196 H (34-104) U/L Troponin I 0.01 (<0.04) ng/mL C-Reactive Protein 7.13 (<8.01) mg/L B-Natriuretic Peptide (<=100) pg/mL Total Protein 6.9 (6.4-8.9) g/dL Albumin 3.2 (3.2-5.2) g/dL Globulin 3.7 (2-4) g/dL Albumin/Globulin Ratio 0.9 L (1-3) Lipase 89 H (11.0-82.0) U/L Blood Type Antibody Screen Crossmatch 04/17/19 04/17/19 04/17/19 Range/Units 21:23 21:23 21:23 WBC (3.5-10.8) 10^3/uL RBC (3.70-4.87) 10^6 /uL Hgb (12.0-16.0) g/dL Hct (35-47) % MCV (80-97) fL MCH (27-31) pg MCHC (31-36) g/dL RDW (10-15) % Plt Count (150-450) 10^3/uL MPV (7.4-10.4) fL Neut % (Auto) % Lymph % (Auto) % [place] % (Auto) % Eos % (Auto) % Baso % (Auto) % Absolute Neuts (auto) (1.5-7.7) 10^3/ul Absolute Lymphs (auto) (1.0-4.8) 10^3/ul Absolute Monos (auto) (0-0.8) 10^3/ul Absolute Eos (auto) (0-0.6) 10^3/ul Absolute Basos (auto) (0-0.2) 10^3/ul Absolute Nucleated RBC 10^3/ul Nucleated RBC % INR (Anticoag Therapy) 1.04 (0.82-1.09) APTT 31.5 (26.0-38.0) seconds VBG pH (7.32-7.43) VBG pCO2 (41-51) mmHg VBG pO2 (35-45) mmHg VBG HCO3 (24-28) mmol/L VBG O2 Saturation (70-80) % VBG Base Excess (0.0-4.0) mmol/L Sodium (135-145) mmol/L Potassium (3.5-5.0) mmol/L Chloride (101-111) mmol/L Carbon Dioxide (22-32) mmol/L Anion Gap (2-11) mmol/L BUN (6-24) mg/dL Creatinine (0.51-0.95) mg/dL Est GFR ( Amer) (>60) Est GFR (Non-Af Amer) (>60) BUN/Creatinine Ratio (8-20) Glucose (70-100) mg/dL Lactic Acid (0.5-2.0) mmol/L Calcium (8.6-10.3) mg/dL Total Bilirubin (0.2-1.0) mg/dL AST (13-39) U/L ALT (7-52) U/L Alkaline Phosphatase (34-104) U/L Troponin I (<0.04) ng/mL C-Reactive Protein (<8.01) mg/L B-Natriuretic Peptide 184 H (<=100) pg/mL Total Protein (6.4-8.9) g/dL Albumin (3.2-5.2) g/dL Globulin (2-4) g/dL Albumin/Globulin Ratio (1-3) Lipase (11.0-82.0) U/L Blood Type O Positive Antibody Screen Negative Crossmatch See Detail 04/17/19 Range/Units 21:23 WBC (3.5-10.8) 10^3/uL RBC (3.70-4.87) 10^6 /uL Hgb (12.0-16.0) g/dL Hct (35-47) % MCV (80-97) fL MCH (27-31) pg MCHC (31-36) g/dL RDW (10-15) % Plt Count (150-450) 10^3/uL MPV (7.4-10.4) fL Neut % (Auto) % Lymph % (Auto) % [place] % (Auto) % Eos % (Auto) % Baso % (Auto) % Absolute Neuts (auto) (1.5-7.7) 10^3/ul Absolute Lymphs (auto) (1.0-4.8) 10^3/ul Absolute Monos (auto) (0-0.8) 10^3/ul Absolute Eos (auto) (0-0.6) 10^3/ul Absolute Basos (auto) (0-0.2) 10^3/ul Absolute Nucleated RBC 10^3/ul Nucleated RBC % INR (Anticoag Therapy) (0.82-1.09) APTT (26.0-38.0) seconds VBG pH 7.39 (7.32-7.43) VBG pCO2 55 H (41-51) mmHg VBG pO2 38.0 (35-45) mmHg VBG HCO3 29.2 H (24-28) mmol/L VBG O2 Saturation 62.0 L (70-80) % VBG Base Excess 6.7 H (0.0-4.0) mmol/L Sodium (135-145) mmol/L Potassium (3.5-5.0) mmol/L Chloride (101-111) mmol/L Carbon Dioxide (22-32) mmol/L Anion Gap (2-11) mmol/L BUN (6-24) mg/dL Creatinine (0.51-0.95) mg/dL Est GFR ( Amer) (>60) Est GFR (Non-Af Amer) (>60) BUN/Creatinine Ratio (8-20) Glucose (70-100) mg/dL Lactic Acid (0.5-2.0) mmol/L Calcium (8.6-10.3) mg/dL Total Bilirubin (0.2-1.0) mg/dL AST (13-39) U/L ALT (7-52) U/L Alkaline Phosphatase (34-104) U/L Troponin I (<0.04) ng/mL C-Reactive Protein (<8.01) mg/L B-Natriuretic Peptide (<=100) pg/mL Total Protein (6.4-8.9) g/dL Albumin (3.2-5.2) g/dL Globulin (2-4) g/dL Albumin/Globulin Ratio (1-3) Lipase (11.0-82.0) U/L Blood Type Antibody Screen Crossmatch Assess/Plan/Problems-Billing Assessment: 78 y/o female with 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 - Patient Problems (1) Anemia Current Visit: No Status: Acute Code(s): D64.9 - ANEMIA, UNSPECIFIED SNOMED Code(s): 832560491 Comment: - admitted at 6.6 - S/P 2u PRBC - Hb post transfusion 8.9 - source likely still due to small bowel AVM which is long existing. - Talked to Dr. Marcial, her primary silo operator, who would like to follow her up in outpatient instead of inpatient intervention - understand a plan of getting enteroscopy outside in the future with Dr. Marcial. no iv iron needed with high iron level 728. (2) COPD exacerbation Current Visit: No Status: Acute Code(s): J44.1 - CHRONIC OBSTRUCTIVE PULMONARY DISEASE W (ACUTE) EXACERBATION SNOMED Code(s): 319271445 Comment: - requiring O2 2L right now - start albuterol/iprotropum nebulizer - not for pred now due to hyperglycemia - wean off O2, to keep O2 88-92% (3) Hyperglycemia Current Visit: Yes Status: Acute Code(s): R73.9 - HYPERGLYCEMIA, UNSPECIFIED SNOMED Code(s): 24314600 Comment: - due to missed dose of insulin yesterday - continue old dose, continue to watch (4) DVT prophylaxis Current Visit: No Status: Acute Code(s): CDE0235 - SNOMED Code(s): 660068180 Comment: - Continue SCDs given pt at high risk for bleeding Status and Disposition: Inpatient Medicine. Consider discharge end of the day. Attestation Documenting Resident: Carolina Tamayo Supervising Physician: Shannan Martinez Attestation: This service has been performed in part by a resident under the direction of a teaching physician.I, Shannan Martinez, performed the service, or was physically present during the critical, or zimmerman portions of the service, furnished by the resident. I participated in the management of the patient.
[2019-04-18] MEDS ORDERED: Albuterol/Ipratropium NEB.SOL* Albuterol 2.5 MG/Ipratropium 0.5 MG 3 ML INH SCH (11:00)
[2019-04-18] MEDS: Analgesic BALM* 114 GM TOPICAL SCH (16:15)
[2019-04-18] MEDS ORDERED: Dextrose 50% VIAL 50 ml IV PUSH PRN (16:16)
[2019-04-18] MEDS: Insulin LISPRO* 1 UNITS UNIT SUBCUT SCH ×3 (16:36→21:00)
[2019-04-18] MEDS ORDERED: Furosemide IV* 10 MG/ML 2 ML VIAL (20 MG) IV ONE (17:34)
--- NOTE | 2019-04-18 17:50 | PN ---
Hospitalist Progress Note Date of Service: 04/18/19 S/IE: Erika Hansen is a 78 y/o female with a history of chronic GI bleeding, COPD, CHF, HTN and diabetes admitted to the hospitalist service for worsening SOB / orthopnea x3 weeks, anemia and concerns about scant bright red blood per rectum. Blood pressures have been high, systolics approaching 200. Baseline is 160 - 170 per patient. Patient continues to use O2 via NC at 2 LPM and to sit upright in bed. She uses home O2 at 2LPM at night and as needed during the day. Patient has complained of some transient b/l LE muscle cramps today. Discharge with GI clinic f/u has been discussed but patient is resisting d/c stating that she does not feel well enough to return home. O: PE: P: 70 bpm, strong and regular BP: 145/51 RR: 16 / min SPO2: 97% RA T: 97.9 F General: 78 y/o AA F appears stated age, resting comfortably in bed, slightly anxious about prospect of d/c, not in acute distress, AAOx4, pleasantly cooperates with interview and exam. HEENT: Head atraumatic, normocephalic. PERRLA, EOMI. Oral mucosa pink and moist. Neck supple. No JVD. No lymphadenopathy. No thyromegaly or thyroid nodules. Chest: Breathing unlabored with normal symmetric chest wall motion. B/l expiratory wheezing in all lung metz, most notable in bases, markedly worse on RA as compared to O2 @2LPM. No crackles. Regular heart rhythm. Normal S1/S2. No rubs, clicks, gallops. Abdomen: Protuberant, soft and non-distended. Some epigastric tenderness on palpation - baseline per patient. Normal bowel sounds. Extremities: UE and LE distal CMS intact b/l. Good hand sales leader strength. Good strength on plantar and dorsi flexion. 2+ LE edema b/l. B/l LE hyperalgesia noted when examined for edema - baseline neuropathy per patient. Abnormal Lab Values: 3 04/17/19 04/17/19 04/17/19 21:23 21:23 21:23 RBC 2.53 L Hgb 6.6 L Hct 22 L MCH 26 L MCHC 30 L RDW 17 H MPV 10.6 H Absolute Lymphs (auto) 0.8 L Creatinine 1.04 H BUN/Creatinine Ratio 20.2 H Glucose 498 H Alkaline Phosphatase 196 H B-Natriuretic Peptide 184 H Albumin/Globulin Ratio 0.9 L Lipase 89 H 3 04/17/19 21:23 VBG pCO2 55 H VBG HCO3 29.2 H VBG O2 Saturation 62.0 L VBG Base Excess 6.7 H 3 04/18/19 04/18/19 04/18/19 01:40 08:42 08:42 RBC 3.32 L Hgb 8.9 L Hct 28 L RDW 17 H Plt Count 142 L Absolute Lymphs (auto) 0.8 L Glucose 342 H Glucose Meter Confirm 473 H Calcium 8.5 L EKG Report (04/17/19): Sinus rhythm. LVH. Borderline QT prolongation. CXR Report (04/17/19): Findings: The heart is within normal limits in size. The lungs are underinflated. There is a right basilar infiltrate and small pleural effusion which appears slightly improved from the prior exam. The left lung appears clear. Impression: Right basilar infiltrate and small pleural effusion slightly improved. Stool Occult Blood Test Report (04/17/19): Positive A/I: 78 y/o AA F with Hx of chronic GI bleeding, COPD, CHF, HTN and diabetes c/o worsening SOB / orthopnea x3 weeks, anemia and scant bright red blood FL concerning for exacerbations of chronic blood loss anemia and COPD. P: Anemia: Confirmed by lab values. High suspicion of slow low GI blood loss etiology based upon Hx of chronic GI bleed / duodenal AVM and pt. observation of scant red blood FL. Low suspicion of new GI bleed etiology due to absence of janet red blood FL, melana or coffee ground emesis. Low suspicion of non-GI internal bleeding etiology based on H+P and stable vital signs. Low suspicion of vitamin deficiency anemia based upon Hx of iron infusions and nutritional status. Low suspicion of autoimmune anemia based upon lack of other autoimmune s/s or Hx of autoimmune conditions. Administered 2 units of PRBs. Hemoglobin up to 8.9 from 6.6. Continue to monitor BMP and CMP QD. Consulted with Dr. Marcial - patient to f/u in his clinic after d/c. SOB: High suspicion of volume overload etiology due to blood transfusions and interruption of home diuretics during admissions process based upon orthopnea and wheezing. Low suspicion of acute pathology based upon Hx, lack of new abnormal exam findings and stability of vital signs. Restarted home bumetanide 2 mg PO Q 0600 and 1400 Restarted home spironolactone 50 mg PO BID Ordered one-time furosemide 20 mg IV Continued O2 at 2LPM via NC HTN: High suspicion of exacerbation of chronic HTN due to volume overload from blood transfusions. Restarted patient home HTN medications Re-evaluated after sufficient diuresis and found glood pressure to be near patient baseline Continue to monitor vital signs DMII: Existing chronic condition Continue regular BGT monitoring Restarted home insulin on sliding scale ADLs: Discharge recommended. Consider discussing the possible need for home ADL assistance with patient and family due to fear of discharge despite being medically stable.
[2019-04-18] MEDS: Albuterol/Ipratropium NEB.SOL* Albuterol 2.5 MG/Ipratropium 0.5 MG 3 ML INH SCH ×2 (19:18→23:51)
[2019-04-18] MEDS: Terazosin CAP* 5 MG PO SCH (20:15)
[2019-04-18 20:49] LABS: Urine Appearance Cloudy; Urine Bacteria Absent (Absent); Urine Bilirubin Negative (Negative); Urine Blood 1+ (Negative); Urine Color Yellow; Urine Glucose Negative (Negative); Urine Ketones Negative (Negative); Urine Nitrite Negative (Negative); Urine Protein Negative (Negative); Urine Red Blood Cell Absent (Absent); Urine Specific Gravity 1.005 (1.010-1.030); Urine Squamous Epithelial Cell Present (Absent); Urine Urobilinogen Negative (Negative); Urine White Blood Cell 2+(11-20/hpf) (Absent)
[2019-04-19] MEDS ORDERED: Bumetanide IV* 0.25 MG/ML 4 ML VIAL SLOW PUSH PRN (04:25)
[2019-04-19] MEDS ORDERED: Levalbuterol 0.63MG/3ML NEB* UNIT OF USE INH ONE (04:25)
[2019-04-19] MEDS: Bumetanide TAB* 2 MG PO SCH ×2 (04:34→13:02)
[2019-04-19] MEDS: Levothyroxine TAB* 25 MCG TAB PO SCH (04:34)
[2019-04-19] MEDS: Albuterol/Ipratropium NEB.SOL* Albuterol 2.5 MG/Ipratropium 0.5 MG 3 ML INH SCH ×3 (08:11→20:12)
[2019-04-19] MEDS: Insulin LISPRO* 1 UNITS UNIT SUBCUT SCH ×7 (08:53→21:06)
[2019-04-19] MEDS: Analgesic BALM* 114 GM TOPICAL SCH (08:53)
[2019-04-19] MEDS: Carvedilol TAB* 25 MG PO SCH ×2 (09:01→21:04)
[2019-04-19] MEDS: Multivitamins/Minerals TAB PO SCH (09:01)
[2019-04-19] MEDS: Spironolactone TAB* 25 MG PO SCH ×2 (09:01→21:04)
[2019-04-19] MEDS: Potassium Chlor TAB* 20 MEQ TAB.ER PO SCH ×2 (09:01→21:03)
[2019-04-19] MEDS: Pantoprazole TAB * 40 MG TAB PO SCH ×2 (09:01→21:04)
[2019-04-19] MEDS: Cyanocobalamin TAB* 500 MCG PO SCH (09:01)
[2019-04-19] MEDS: Atorvastatin* 10 MG TAB PO SCH (09:02)
[2019-04-19] MEDS: Losartan TAB* 25 MG PO SCH (09:02)
[2019-04-19 09:43] LABS: Calcium 8.4 mg/dL (8.6-10.3); Magnesium 1.5 mg/dL (1.9-2.7); Potassium 3.7 mmol/L (3.5-5.0)
[2019-04-19 09:49] LABS: BUN/Creatinine Ratio 16.8 (8-20); EGFR African American 60.2 (>60); EGFR Non-African American 49.7 (>60)
[2019-04-19] MEDS ORDERED: Magnesium Sulfate 2 GM IV* 2 GM/50 ML BAG IVPB ONE (10:43)
[2019-04-19] MEDS ORDERED: Albuterol/Ipratropium NEB.SOL* Albuterol 2.5 MG/Ipratropium 0.5 MG 3 ML INH SCH (11:00)
[2019-04-19] MEDS ORDERED: predniSONE TAB* 20 MG PO ONE (11:02)
[2019-04-19] MEDS ORDERED: Furosemide IV* 10 MG/ML 10 ML VIAL (100 MG) IV ONE (15:28)
[2019-04-19] MEDS: Insulin NPH(*) 1 UNITS UNIT SUBCUT SCH (17:28)
--- NOTE | 2019-04-19 18:08 | ECHO ---
*[facility]* [place] [address] Fax #: [phone] Transthoracic Echocardiogram Patient: Erika Hansen : 1940 Study Date: 04/19/2019 Age: 78 Gender: F HR: 65 bpm Height: 63 in /160 cm BSA: 2.01 m^2 Weight: 219.5 lb /99.8 kg BMI: 39 kg/m^2 *Clinical Quality Assurance Associate: * Morelia Temple [facility] *Referring Physician: * Carolina Tamayo *Reading Physician: * Izaiah Lozano MD Indications: Congestive Heart Failure. History: Congestive heart failure. Chronic obstructive pulmonary disease. PMH: Cardiomyopathy. Functional status: Renal failure, sleep apnea. Risk factors: Hypertension. Diabetes mellitus. Obese. Dyslipidemia. Conclusions Summary: - Left ventricle: The cavity size is normal. Wall thickness is mildly increased. Systolic function is mildly reduced. The estimated ejection fraction is 45-50%. Mild diffuse hypokinesis with minor regional variation - Right ventricle: The cavity size is mildly dilated. Systolic function is normal. - Left atrium: The atrium is moderately dilated. - Pericardium, extracardiac: There is no significant pericardial effusion. - Pulmonary arteries: Systolic pressure can not be accurately estimated. - No significant valvular abnormalities noted. Recommendations: Compared to prior study from 03/2018, no clinically significant changes noted. Study data: Transthoracic echocardiogram. Procedure: Transthoracic echocardiography was performed. Image quality was fair. The study was technically limited due to COPD. Complete 2D, spectral Doppler, and color flow Doppler. Location: Bedside. Patient status: Inpatient. Patient room number: 440. Rhythm: Normal sinus rhythm. Findings Left ventricle: The cavity size is normal. Wall thickness is mildly increased. Systolic function is mildly reduced. The estimated ejection fraction is 45-50%. Mild diffuse hypokinesis. Doppler parameters are consistent with abnormal left ventricular relaxation (grade 1 diastolic dysfunction). Right ventricle: The cavity size is mildly dilated. Systolic function is normal. Left atrium: The atrium is moderately dilated. Right atrium: The atrium is normal in size. Mitral valve: The leaflets are mildly thickened. There is no evidence of stenosis. There is trace regurgitation. Aortic valve: The valve is trileaflet. The leaflets are mildly thickened. There is no evidence of stenosis. There is no significant regurgitation. Tricuspid valve: The leaflets are normal thickness. There is no evidence of stenosis. There is trace regurgitation. Pulmonic valve: The leaflets are normal thickness. There is no evidence of stenosis. There is trace regurgitation. Aorta: Aortic root: The aortic root is appears normal. Ascending aorta: The ascending aorta is appears normal. Aortic arch: The aortic arch is appears normal. Pericardium: A prominent pericardial fat pad is present. There is no significant pericardial effusion. Pulmonary arteries: The main pulmonary artery is normal-sized. Systolic pressure can not be accurately estimated. Systemic veins: Inferior vena cava: The vessel is normal in size. There is (< 50%) respiratory change in the IVC dimension. Measurements Left ventricle Value Ref Aortic valve Value Ref YONATAN, LAX 4.5 cm 3.8 - 5.2 Tony diam, ED 1.9 cm ---- ESD, LAX 3.3 cm 2.2 - 3.5 Peak v, S 1.47 m/sec ---- FS, LAX 27 % 27 - 45 VTI, S 32.2 cm ---- PW, ED, LAX (H) 1.1 cm 0.6 - 0.9 Mean grad, S 4.0 mm Hg ---- FS 27 % 27 - 45 Peak grad, S 9.0 mm Hg ---- PW, ED (H) 1.1 cm 0.6 - 0.9 LVOT/AV, VTI ratio 0.71 ---- E', lat tony, TDI (L) 6.2 cm/sec >=10.0 E/e', lat tony, 14 Mitral valve Value Ref TDI Peak E 0.88 m/sec ---- E', med tony, TDI (L) 5.1 cm/sec >=7.0 Peak A 1.24 m/sec -- -- E/e', med tony, 17 Decel time 194 ms ---- TDI Peak grad, D 3.1 mm Hg ---- E', avg, TDI 5.7 cm/sec Peak E/A ratio 0.7 ---- E/e', avg, TDI (H) 16 <=14 Pulmonic valve Value Ref LVOT Value Ref Peak v, S 1.29 m/sec ---- Peak kenya, S 0.9 m/sec Peak grad, S 7.0 mm Hg ---- VTI, S 23.0 cm Mean grad, S 2 mm Hg Aortic root Value Ref Root diam 2.7 cm <4.1 Ventricular septum Value Ref IVS, ED (H) 1.1 cm 0.6 - 0.9 Ascending aorta Value Ref AAo AP diam, S 2.8 cm ---- Right ventricle Value Ref YONATAN, LAX 2.9 cm Aortic arch Value Ref YONATAN minor ax, A4C (H) 3.8 cm 1.9 - 3.5 Arch diam 2.0 cm ---- mid Decending aorta Value Ref Left atrium Value Ref Julius peak kenya 1.09 m/sec ---- AP dim, ES (H) 4.20 cm 2.70 - 3.80 Inferior vena cava Value Ref ML dim, A4C 4.9 cm Diam 1.8 cm ---- SI dim, A4C 5.7 cm Vol/bsa, ES, 1-p (H) 52 ml/m^2 11 - 40 A4C Vol/bsa, ES, A/L (H) 42 ml/m^2 16 - 34 Right atrium Value Ref SI dim, ES 5.1 cm 3.4 - 5.3 ML dim, ES, A4C 4.3 cm 2.6 - 4.4 SI dim, ES, A4C 5.1 cm 3.4 - 5.3 Estimated RAP 8 mm Hg Legend: (L) and (H) willow values outside specified reference range. Prepared and electronically signed by Izaiah Lozano MD 04/19/2019 18:08
[2019-04-19] MEDS ORDERED: Mometasone/Formoter 200/5 MDI INH SCH (21:00)
[2019-04-19] MEDS: Terazosin CAP* 5 MG PO SCH (21:03)
[2019-04-20] MEDS: Albuterol/Ipratropium NEB.SOL* Albuterol 2.5 MG/Ipratropium 0.5 MG 3 ML INH SCH ×3 (01:04→12:40)
[2019-04-20] MEDS: Levothyroxine TAB* 25 MCG TAB PO SCH (05:37)
[2019-04-20 06:35] LABS: BUN/Creatinine Ratio 18.6 (8-20); Calcium 8.2 mg/dL (8.6-10.3); EGFR African American 53.7 (>60); EGFR Non-African American 44.4 (>60); Magnesium 1.8 mg/dL (1.9-2.7); Potassium 4.1 mmol/L (3.5-5.0)
[2019-04-20] MEDS ORDERED: Magnesium Sulfate 2 GM IV* 2 GM/50 ML BAG IVPB ONE (08:05)
[2019-04-20] MEDS: Analgesic BALM* 114 GM TOPICAL SCH (08:47)
[2019-04-20] MEDS: Carvedilol TAB* 25 MG PO SCH (08:52)
[2019-04-20] MEDS: Atorvastatin* 10 MG TAB PO SCH (08:52)
[2019-04-20] MEDS: Potassium Chlor TAB* 20 MEQ TAB.ER PO SCH (08:52)
[2019-04-20] MEDS: Cyanocobalamin TAB* 500 MCG PO SCH (08:52)
[2019-04-20] MEDS: Pantoprazole TAB * 40 MG TAB PO SCH (08:52)
[2019-04-20] MEDS: Multivitamins/Minerals TAB PO SCH (08:52)
[2019-04-20] MEDS: Losartan TAB* 25 MG PO SCH (08:53)
[2019-04-20] MEDS: Insulin LISPRO* 1 UNITS UNIT SUBCUT SCH ×4 (08:53→12:42)
[2019-04-20] MEDS: Spironolactone TAB* 25 MG PO SCH (08:53)
--- NOTE | 2019-04-20 09:25 | PN ---
Hospitalist Progress Note Date of Service: 04/20/19 S/IE: Feeling much better this morning and feels OK about d/c to home today. Denies SOB. Reports significant urination after diuretics. Denies pain / burning on urination or suprapubic pain. Planning to use regular bathroom instead of commode later this AM and will have post-void bladder scan afterwards. Will do a trial run without O2 at that time as well. Patient admits today that she had not been taking her home diuretics as prescribed due to the inconvenience of frequent urination. O: PE: 3 Temp Pulse Resp BP Pulse Ox 97.0 F 74 16 153/53 100 04/20/19 03:15 04/20/19 03:15 04/20/19 03:15 04/20/19 03:15 04/20/19 03:15 General: 78 y/o AA F appears stated age, sitting comfortably in chair eating breakfast with low flow O2 in use via NC. Not in acute distress, AAOx4, pleasantly cooperates with interview and exam. HEENT: Head atraumatic, normocephalic. PERRLA, EOMI. Oral mucosa pink and moist. Chest: Breathing unlabored with normal symmetric chest wall motion. Good air movement b/l and all lung metz without wheezing or crackles. Regular heart rhythm. Normal S1/S2. No rubs, clicks, gallops. Abdomen: Protuberant, soft and non-distended. Extremities: UE and LE distal CMS intact b/l. Abnormal Lab Values: 3 04/20/19 04/20/19 04/20/19 10:09 10:09 11:03 RBC 3.10 L Hgb 8.2 L Hct 26 L MCH 26 L RDW 17 H Plt Count 113 L Absolute Lymphs (auto) 0.4 L Chloride 98 L Carbon Dioxide 33 H Creatinine 1.28 H Glucose 329 H POC Glucose (mg/dL) 330 H Calcium 8.2 L Urine Culture Report (04/20/19): Organism 1 KLEBSIELLA PNEUMONIAE [place] Count >100,000 (Many) CFU/ML 1. KLEBSIELLA PNEUMONIAE Ampicillin >=32 R Cefazolin <=4 S Cefepime <=1 S Ceftriaxone <=1 S Ciprofloxacin <=0.25 S Gentamicin <=1 S Levofloxacin <=0.12 S Meropenem <=0.25 S Nitrofurantoin <=16 S Tetracycline <=1 S Pipercillin/Tazobactam <=4 S Trimethoprim/Sulfamethoxazole <=20 S Amoxicillin/Clavulanic Acid <=2 S Aztreonam <=1 S A/I: 78 y/o AA F with Hx of chronic GI bleeding, COPD, CHF, HTN and diabetes c/o worsening SOB / orthopnea x3 weeks, anemia and scant bright red blood WI concerning for exacerbations of chronic blood loss anemia and COPD with good response to treatment now ready for discharge to home. P: Anemia: DDx: Confirmed by lab values. High suspicion of slow low GI blood loss etiology based upon Hx of chronic GI bleed / duodenal AVM and pt. observation of scant red blood WI. Low suspicion of new GI bleed etiology due to absence of janet red blood WI, melana or coffee ground emesis. Low suspicion of non-GI internal bleeding etiology based on H+P and stable vital signs. Low suspicion of vitamin deficiency anemia based upon Hx of iron infusions and nutritional status. Low suspicion of autoimmune anemia based upon lack of other autoimmune s/s or Hx of autoimmune conditions. Tx: Administered 2 units of PRBs. Hemoglobin up to 8.9 from 6.6 Suspected etiology supported by history and good response to blood transfusions with stable condition thereafter Outpatient f/u with Dr. Marcial in GI clinic SOB: DDx: High suspicion of volume overload etiology due to blood transfusions and interruption of home diuretics during admissions process based upon orthopnea and wheezing. Low suspicion of acute pathology based upon Hx, lack of new abnormal exam findings and stability of vital signs. Tx: Markedly improved with continued diuresis with IV furosemide / IV bumetanide / PO spironolactone, albuterol treatments and oral prednisone Suspected etiology supported by history, particularly recent admission of diuretic non-compliance and good response to diuresis Re-start home medication upon d/c Albuterol MDI 2 puffs PRN Q4H Bumetanide 2 mg PO BID Spironolactone 50 mg PO BID O2 at 2LPM via NC PRN Outpatient f/u with PCP for re-evaluation including PFTs HTN: DDx: High suspicion of exacerbation of chronic HTN due to volume overload from blood transfusions. Tx: Restarted patient home HTN medications and diuresis as above Suspected etiology supported by return of BP to near patient baseline with good stability thereafter Continue home BP medications upon d/c Diuretics as above Carvediolol 25 mg PO BID Losartan 50 mg PO QD DMII: Existing chronic condition Continue regular BGT monitoring Restart home insulin regimen upon d/c Insulin NPH 24 units SQ QPM Insulin lispro 35 units SQ QAM with breakfast Insulin lispro 30 units SQ BID with lunch and dinner
[2019-04-20 10:22] LABS: ABS Eosinophils 0.2 10^3/ul (0-0.6); ABS Lymphocytes 0.4 10^3/ul (1.0-4.8); ABS Monocytes 0.3 10^3/ul (0-0.8); ABS Neutrophils 4.2 10^3/ul (1.5-7.7); Eosinophil % 3.6 %; Hematocrit 26 % (35-47); Hemoglobin 8.2 g/dL (12.0-16.0); Lymphocyte % 8.1 %; Mean Corpuscular HGB Conc 32 g/dL (31-36); Mean Corpuscular Hemoglobin 26 pg (27-31); Mean Corpuscular Volume 84 fL (80-97); Mean Platelet Volume 9.2 fL (7.4-10.4); Nucleated Red Blood Cells % 0.1; Platelet Count 113 10^3/uL (150-450); Red Cell Distribution Width 17 % (10-15); White Blood Count 5.2 10^3/uL (3.5-10.8)
[2019-04-20 10:47] LABS: Calcium 8.2 mg/dL (8.6-10.3); EGFR African American 48.9 (>60); EGFR Non-African American 40.4 (>60)
[2019-04-20 12:54] VITALS: BP 128/43
--- NOTE | 2019-04-21 00:08 | DS ---
CC: Dr. Neena Moyer * DISCHARGE SUMMARY: DATE OF ADMISSION: 04/18/19 DATE OF DISCHARGE: 04/20/19 PRIMARY CARE PHYSICIAN: Dr. Neena Moyer. PRIMARY DIAGNOSES: 1. Severe anemia from chronic gastrointestinal bleed. 2. Heart failure exacerbation. SECONDARY DIAGNOSES: 1. Possible chronic obstructive pulmonary disease. 2. Diabetes type 2, on insulin, complicated by neuropathy. 3. Morbid obesity. 4. Hypertension. 5. Chronic kidney disease. 6. Hypothyroidism. DISCHARGE MEDICATIONS: 1. Bumetanide 2 mg p.o. daily. 2. Potassium chloride 20 mEq p.o. daily. 3. Albuterol inhaler 2 puffs every 4 hours as needed for shortness of breath. 4. Insulin NPH Humulin 25 units every evening. 5. Insulin lispro 35 mg in the morning. 6. Insulin lispro 30 mg with lunch and dinner. 7. Oxycodone 5 mg every 6 hours as needed for pain. 8. Spironolactone 50 mg twice a day. 9. Terazosin 10 mg at bedtime. 10. Losartan 50 mg daily. 11. Carvedilol 25 mg every 12 hours. 12. Simvastatin 20 mg daily. 13. Nitroglycerin 0.3 mg every 5 minutes as needed for chest pain. 14. Omeprazole 20 mg twice a day. 15. Levothyroxine 25 mcg daily. 16. Multivitamin 1 tablet daily. 17. Vitamin B12 1000 mcg daily. HISTORY OF PRESENT ILLNESS: Ms. Hansen is a 78-year-old woman with diabetes type 2, on insulin; morbid obesity; duodenal AVMs; peptic ulcer disease and esophageal varices, complicated by chronic iron deficiency anemia requiring iron transfusions; heart failure, reduced ejection fraction 45% to 50%; COPD with as needed supplemental oxygen, who presented to the ER with worsening shortness of breath. She states she has been having worsening shortness of breath over the last 3 weeks, and she has been using her albuterol inhaler every 4 hours around the clock for several days. She also states that when she has a bowel movement and wipes, she notices blood on the toilet paper. She states this has happened before but not recently. She is also experiencing increasing lower extremity swelling and wheezing, so she presented to the emergency room for further evaluation. These symptoms are associated with a dry cough without chest pain. She did experience intermittent nausea and abdominal pain with decreased appetite, so she also stopped taking her insulin. She denies fever or chills, numbness or tingling. Denies dysuria or urinary frequency. HOSPITAL COURSE: In the emergency room, the patient was noted to have a hemoglobin of 6.6, and she was given 2 units of packed red blood cells with hemoglobin response to 8.9. This likely caused worsening volume overload and her shortness of breath worsened. A chest x-ray showed a right-sided pleural effusion. The patient was given IV diuretics and, given wheeze and history of possible COPD, she was also given 1 dose of oral steroids. She was kept on ipratropium and albuterol nebulizers to take initially around the clock, then as needed. A repeat echocardiogram showed heart function at baseline of mildly reduced systolic function with EF 45% to 50%. Her hemoglobin was stable through -out admission while the patient underwent treatment for volume overload. The patient was initially maintained on 2 L nasal cannula but was able to be titrated off by day of discharge. She reports using supplemental O2 at night and rarely during the day while at home. She did not have any further bleeding per rectum throughout admission. Dr. Marcial was consulted who preferred to have the patient follow up in clinic for chronic GI bleeding. The patient was seen and evaluated by Physical Therapy, but she refused to walk with PT, "just to show the MD that she could walk." She also reports that she would never allow someone in her home as she is a very private person and she would not want home PT or home health aide. After switching to oral diuretics, the patient reports that she is feeling much better from a respiratory standpoint and was able to lie more reclined without worsening shortness of breath. The patient was noted to have a positive urine culture; however, she continued to deny dysuria, suprapubic pain, or urinary frequency. A 10-point review of systems was performed and pertinent positives and negatives were listed. PHYSICAL EXAMINATION: Afebrile. Heart rate 62, blood pressure 120/43, oxygen saturation 100% on room air with respiratory rate 20. In general, she is a well - appearing woman in no acute distress, who is alert and interactive and very pleasant. HEENT: With moist mucous membranes. OP clear. CN II through XII intact. Chest: Good air movement bilaterally without wheeze or crackles. Heart : Regular rate and rhythm. No murmurs, gallops, or rubs. Abdomen: Protuberant , soft, nontender, nondistended. Extremities: Warm and well perfused without evidence of edema. PERTINENT STUDIES AND LABS: Hemoglobin on discharge 8.2 with MCV 84. BMP with carbon dioxide 33 and creatinine 1.28, which is a slight increase from her baseline, likely due to diuresis. VBG on presentation with pCO2 of 55. Glucose on presentation, 500. BNP 184. Urine culture with Klebsiella pneumoniae over 100,000 CFU, resistant to ampicillin. TTE with LV cavity size normal, increased wall thickness, and systolic function mildly reduced to 45% to 50% with mild diffuse hypokinesis with minor regional variation, right ventricle cavity size mildly dilated with normal systolic function, LA moderately dilated. Chest x-ray with right pleural effusion and right basilar infiltrate with some improvement since chest x-ray on admission. The effusion is small. DISCHARGE PLAN: The patient is to follow up closely with her primary care physician for ongoing monitoring of her chronic medical problems. The patient needs optimization of her blood glucose and blood pressure as well as completion of workup for likely COPD. Of note, the patient had elevated pCO2 on blood gas with elevated bicarb on BMP which supports diagnosis of chronic CO2 retention. The patient was also made an appointment for next week in Dr. Marcial's office to follow up for chronic GI bleeding. Her medications should be continued as above until her diabetes and hypertension regimens are optimized by her outpatient providers. Strict medication adherence was stressed with the patient by multiple medical providers. The patient was given return precautions which include, but are not limited to, fever, newly productive cough, or recurrence of significant GI bleeding. She should eat a healthy diet, low in carbohydrates and low in processed foods. She should resume activity as tolerated and attempt ambulating more. DISPOSITION: To home. CONDITION: Improved. TIME SPENT: Approximately 60 minutes was spent on discharge of this patient, more than half of which was spent with care coordination at bedside for interview and exam. [id number]/[facility] #: [id number] WENDY
== END 2019-04-20 15:05 | disposition home or self-care (01) | DRG 291 ==
LOC: ED 20:40 → MEDTELE 04-18 05:14
PROVIDERS: ADMIT Internal Medicine; ATTEND Internal Medicine
PROC: 30233N1 Transfusion of Nonautologous Red Blood Cells into Peripheral Vein, Percutaneous Approach (ICD-10-PCS; principal; 2019-04-18)
DX: I13.0 Hypertensive heart and chronic kidney disease with heart failure and stage 1 through stage 4 chronic kidney disease, or unspecified chronic kidney disease (principal); I50.23 Acute on chronic systolic (congestive) heart failure; K76.6 Portal hypertension; I85.10 Secondary esophageal varices without bleeding; K92.2 Gastrointestinal hemorrhage, unspecified; D50.0 Iron deficiency anemia secondary to blood loss (chronic); I42.8 Other cardiomyopathies; E11.42 Type 2 diabetes mellitus with diabetic polyneuropathy; I25.10 Atherosclerotic heart disease of native coronary artery without angina pectoris; E78.00 Pure hypercholesterolemia, unspecified; G47.30 Sleep apnea, unspecified; J43.9 Emphysema, unspecified; K74.60 Unspecified cirrhosis of liver; K21.9 Gastro-esophageal reflux disease without esophagitis; N18.3 Chronic kidney disease, stage 3 (moderate); E11.22 Type 2 diabetes mellitus with diabetic chronic kidney disease; M19.90 Unspecified osteoarthritis, unspecified site; M48.00 Spinal stenosis, site unspecified; Z96.1 Presence of intraocular lens; F41.9 Anxiety disorder, unspecified; F32.9 Major depressive disorder, single episode, unspecified; E11.65 Type 2 diabetes mellitus with hyperglycemia; E66.01 Morbid (severe) obesity due to excess calories; K31.89 Other diseases of stomach and duodenum; K55.20 Angiodysplasia of colon without hemorrhage; E78.5 Hyperlipidemia, unspecified; E03.9 Hypothyroidism, unspecified; K27.9 Peptic ulcer, site unspecified, unspecified as acute or chronic, without hemorrhage or perforation; E27.8 Other specified disorders of adrenal gland; Z68.38 Body mass index [BMI] 38.0-38.9, adult; Z87.891 Personal history of nicotine dependence; Z98.42 Cataract extraction status, left eye; Z98.41 Cataract extraction status, right eye; Z88.8 Allergy status to other drugs, medicaments and biological substances; Z79.4 Long term (current) use of insulin; Z99.81 Dependence on supplemental oxygen
CPT/HCPCS: 36415; 71045; 71046; 80048; 80053; 81003; 81015; 82272; 82803; 82947; 83605; 83690; 83735; 83880; 84484; 85025; 85610; 85730; 86078; 86140; 86850; 86900; 86901; 86922; 87077; 87086; 87186; 93005; 93306; 94640; 96374; 99284; A9270-GY; G8978-GP-CJ; G8979-GP-CI; J0360; J1940; J3475; J7512; P9040

== ENCOUNTER 2019-04-20 23:45 | Emergency (ER) | payer MEDICARE, OTHER ==
[2019-04-21 01:11] LABS: ABS Eosinophils 0.2 10^3/ul (0-0.6); ABS Lymphocytes 0.7 10^3/ul (1.0-4.8); ABS Monocytes 0.4 10^3/ul (0-0.8); ABS Neutrophils 4.8 10^3/ul (1.5-7.7); Eosinophil % 3.5 %; Hematocrit 25 % (35-47); Hemoglobin 7.9 g/dL (12.0-16.0); Lymphocyte % 11.3 %; Mean Corpuscular HGB Conc 32 g/dL (31-36); Mean Corpuscular Hemoglobin 27 pg (27-31); Mean Corpuscular Volume 84 fL (80-97); Mean Platelet Volume 9.7 fL (7.4-10.4); Platelet Count 115 10^3/uL (150-450); Red Blood Count 2.93 10^6 /uL (3.70-4.87); Red Cell Distribution Width 17 % (10-15); White Blood Count 6.1 10^3/uL (3.5-10.8)
[2019-04-21 01:28] LABS: Albumin 2.9 g/dL (3.2-5.2); BUN/Creatinine Ratio 19.5 (8-20); C Reactive Protein 3.18 mg/L (<8.01); Calcium 7.9 mg/dL (8.6-10.3); EGFR African American 41.1 (>60); EGFR Non-African American 33.9 (>60); Globulin 2.9 g/dL (2-4); Potassium 4.2 mmol/L (3.5-5.0); Total Bilirubin 0.4 mg/dL (0.2-1.0); Total Protein 5.8 g/dL (6.4-8.9)
--- NOTE | 2019-04-21 02:51 | ED ---
Dizziness - HPI Summary HPI Summary: Patient complains of intermittent episodes of lightheadedness, headache and blurred vision starting 2 hours after discharge from [facility] [place].. Symptoms occur together and then resolve altogether. Episodes last for minutes at a time. Patient states blurred vision and headache have resolved, some lightheadedness here in the ED. Patient has history of discharge today from [facility] for chronic GI bleed, shortness of breath, CHF exacerbation and bilateral leg swelling. Patient and family deny facial droop, speech change, AMS, focal deficits, unilateral weakness, fever, cough, sore throat, CP, SOB, N/V/V abdominal pain, change in urine, change in BM. No anti-coag. Patient is on oxygen 2 L when necessary, usually at night. Medical history is DM 2, CK D stage III, COPD, PE, iron deficiency anemia, esophageal varices, chronic GI bleed, history of blood transfusions, HDL, hypothyroid. Patient has pending appointment next week with GI for further evaluation of chronic GI bleed. Per discharge summary patient was to follow-up with primary care for management of chronic conditions, including management of glucose and hypertension. Patient has history of noncompliance. Nonambulatory. - History Of Current Complaint Chief Complaint: EDDizziness Stated Complaint: DIZZY PER EMS Time Seen by Provider: 04/21/19 00:07 Hx Obtained From: Patient Onset/Duration: Still Present, Resolved Timing: Minutes Severity Initially: Moderate Severity Currently: Moderate Character: Lightheaded Aggravating Factor(s): Headache, Position Change - Allergies/Home Medications Allergies/Adverse Reactions: Allergies Allergy/AdvReac Type Severity Reaction Status Date / Time captopril Allergy Severe Hives Verified 02/16/19 01:45 PMH/Surg Hx/FS Hx/Imm Hx Endocrine/Hematology History: Reports: Hx Blood Transfusions, Hx Diabetes, Hx Thyroid Disease, Hx Anemia - chronic iron infusions Cardiovascular History: Reports: Hx Angina, Hx Congestive Heart Failure, Hx Coronary Artery Disease, Hx Hypercholesterolemia, Hx Hypertension, Other Cardiovascular Problems/Disorders - cardiomyopathy Denies: Hx Myocardial Infarction, Hx Pacemaker/ICD Respiratory History: Reports: Hx Asthma, Hx Chronic Obstructive Pulmonary Disease (COPD), Other Respiratory Problems/Disorders - emphysema Denies: Hx Sleep Apnea GI History: Reports: Hx Cirrhosis, Hx Gastroesophageal Reflux Disease, Hx Gastrointestinal Bleed, Hx Hiatal Hernia - s/p repair, Hx Ulcer, Other GI Disorders - HELICOBACTER INFECTION History: Reports: Hx Chronic Renal Failure - Stage 3, Hx Renal Disease, Other Problems/Disorders - CKD stage 3 Musculoskeletal History: Reports: Hx Arthritis, Hx Back Problems, Other Musculoskeletal History - spinal stenosis Sensory History: Reports: Hx Cataracts - surgery with implants bilat eyes 96, Hx Contacts or Glasses - reading Denies: Hx Deafness, Hx Hearing Aid Opthamlomology History: Reports: Hx Cataracts - surgery with implants bilat eyes 96, Hx Contacts or Glasses - reading EENT History: Denies: Hx Deafness Neurological History: Reports: Other Neuro Impairments/Disorders - vertigo Psychiatric History: Reports: Hx Anxiety, Hx Depression, Other Psychiatric Issues/Disorders - PT REPORTS"STRESS" AND SAYS HER MD GAVE HER A MED FOR IT, UNSURE WHAT Denies: Hx Panic Disorder - Cancer History Hx Chemotherapy: No Hx Radiation Therapy: No Hx Palliative Cancer Treatment: No - Surgical History Surgery Procedure, Year, and Place: HERNIA. HYSTERECTOMY. CATERACTS. CARPAL TUNNEL. CYSTS REMOVED FROM BILATERAL ARMPITS. RTC RT. LT FOOT SURGERY Hx Anesthesia Reactions: No - Immunization History Date of Tetanus Vaccine: > 10 yers Date of Influenza Vaccine: 5135-9799 Immunizations Up to Date: Yes Infectious Disease History: No Infectious Disease History: Denies: Hx Clostridium Difficile, Hx Hepatitis, Hx Human Immunodeficiency Virus (HIV), Hx of Known/Suspected MRSA, Hx Shingles, Hx Tuberculosis, History Other Infectious Disease, Traveled Outside the [place] in Last 30 Days - Family History Known Family History: Positive: Diabetes, Other - Yes - CHF (Mother) - Social History Alcohol Use: None Hx Substance Use: No Substance Use Type: Reports: None Hx Tobacco Use: Yes Smoking Status (MU): Former Smoker Have You Smoked in the Last Year: No Review of Systems Constitutional: Negative Positive: Blurred Vision ENT: Negative Cardiovascular: Negative Respiratory: Negative Gastrointestinal: Negative Genitourinary: Negative Musculoskeletal: Negative Skin: Negative Positive: Headache Psychological: Normal All Other Systems Reviewed And Are Negative: Yes Physical Exam - Summary Physical Exam Summary: Neuro exam normal. Patient nonambulatory at baseline. Mild peripheral edema. Lung sounds clear to auscultation bilaterally. RRR. Abdomen soft nontender. Triage Information Reviewed: Yes Vital Signs On Initial Exam: Initial Vitals Temp Pulse Resp BP Pulse Ox 98.3 F 69 25 118/69 98 04/20/19 23:50 04/20/19 23:50 04/20/19 23:50 04/20/19 23:50 04/20/19 23:50 Vital Signs Reviewed: Yes Appearance: Positive: Well-Appearing Skin: Positive: Warm Head/Face: Positive: Normal Head/Face Inspection Eyes: Positive: Normal Neck: Positive: Supple Respiratory/Lung Sounds: Positive: Clear to Auscultation Cardiovascular: Positive: Normal Abdomen Description: Positive: Nontender Musculoskeletal: Positive: Normal Neurological: Positive: Normal Psychiatric: Positive: Normal AVPU Assessment: Alert - [place] Coma Scale Best Eye Response: 4 - Spontaneous Best Motor Response: 6 - Obeys Commands Best Verbal Response: 5 - Oriented Coma Scale Total: 15 Procedures - Sedation Patient Received Moderate/Deep Sedation with Procedure: No Diagnostics - Vital Signs Vital Signs Temp Pulse Resp BP Pulse Ox 04/21/19 01:30 63 22 111/52 98 04/21/19 01:04 65 20 120/45 98 04/21/19 01:00 67 22 99 04/21/19 00:29 66 18 111/47 99 04/21/19 00:01 70 17 98 04/21/19 00:00 69 24 118/69 98 04/20/19 23:59 70 13 95 04/20/19 23:50 98.3 F 69 25 118/69 98 - Laboratory Lab Results: Lab Results 04/21/19 04/21/19 Range/Units 00:59 00:59 WBC 6.1 (3.5-10.8) 10^3/uL RBC 2.93 L (3.70-4.87) 10^6 /uL Hgb 7.9 L (12.0-16.0) g/dL Hct 25 L (35-47) % MCV 84 (80-97) fL MCH 27 (27-31) pg MCHC 32 (31-36) g/dL RDW 17 H (10-15) % Plt Count 115 L (150-450) 10^3/uL MPV 9.7 (7.4-10.4) fL Neut % (Auto) 77.8 % Lymph % (Auto) 11.3 % [place] % (Auto) 6.9 % Eos % (Auto) 3.5 % Baso % (Auto) 0.5 % Absolute Neuts (auto) 4.8 (1.5-7.7) 10^3/ul Absolute Lymphs (auto) 0.7 L (1.0-4.8) 10^3/ul Absolute Monos (auto) 0.4 (0-0.8) 10^3/ul Absolute Eos (auto) 0.2 (0-0.6) 10^3/ul Absolute Basos (auto) 0.0 (0-0.2) 10^3/ul Absolute Nucleated RBC 0.0 10^3/ul Nucleated RBC % 0.0 Sodium 138 (135-145) mmol/L Potassium 4.2 (3.5-5.0) mmol/L Chloride 100 L (101-111) mmol/L Carbon Dioxide 32 (22-32) mmol/L Anion Gap 6 (2-11) mmol/L BUN 29 H (6-24) mg/dL Creatinine 1.49 H (0.51-0.95) mg/dL Est GFR ( Amer) 41.1 (>60) Est GFR (Non-Af Amer) 33.9 (>60) BUN/Creatinine Ratio 19.5 (8-20) Glucose 200 H (70-100) mg/dL Calcium 7.9 L (8.6-10.3) mg/dL Total Bilirubin 0.40 (0.2-1.0) mg/dL AST 26 (13-39) U/L ALT 21 (7-52) U/L Alkaline Phosphatase 156 H (34-104) U/L C-Reactive Protein 3.18 (<8.01) mg/L Total Protein 5.8 L (6.4-8.9) g/dL Albumin 2.9 L (3.2-5.2) g/dL Globulin 2.9 (2-4) g/dL Albumin/Globulin Ratio 1.0 (1-3) Result Diagrams: 04/21/19 00:59 04/21/19 00:59 Lab Statement: Any lab studies that have been ordered have been reviewed, and results considered in the medical decision making process. Dizzy Course/Dx - Course Course Of Treatment: Patient complains of intermittent episodes of lightheadedness, headache and blurred vision starting 2 hours after discharge from [facility] today.. Symptoms occur together and then resolve altogether. Episodes last for minutes at a time. Patient states blurred vision and headache have resolved, some lightheadedness here in the ED. Patient has history of discharge today from [facility] for chronic GI bleed, shortness of breath, CHF exacerbation and bilateral leg swelling. Patient and family deny facial droop, speech change, AMS, focal deficits, unilateral weakness, fever, cough, sore throat, CP, SOB, N/V/V abdominal pain, change in urine, change in BM. No anti-coag. Patient is on oxygen 2 L when necessary, usually at night. Medical history is DM 2, CK D stage III, COPD, PE, iron deficiency anemia, esophageal varices, chronic GI bleed, history of blood transfusions, HDL, hypothyroid. Patient has pending appointment next week with GI for further evaluation of chronic GI bleed. Per discharge summary patient was to follow-up with primary care for management of chronic conditions, including management of glucose and hypertension. Patient has history of noncompliance. Nonambulatory. Vital signs within normal limits. Labs are patient baseline. - Diagnoses Provider Diagnoses: Dizziness Discharge ED - Sign-Out/Discharge Documenting (check all that apply): Sign-Out Patient Signing out patient TO: Diya Bowen - Discharge Plan Condition: Stable Disposition: HOME Patient Education Materials: Dizziness (ED) Referrals: Neena Moyer MD [Primary Care Provider] - 2 Days Additional Instructions: PLEASE RETURN TO THE EMERGENCY DEPARTMENT FOR ANY NEW OR WORSENING SYMPTOMS. FOLLOW UP WITH YOUR PRIMARY CARE PROVIDER IN 1-3 DAYS. - Billing Disposition and Condition Condition: STABLE Disposition: Home
[2019-04-21 02:52] LABS: Urine Appearance Cloudy; Urine Bacteria 1+ (Absent); Urine Bilirubin Negative (Negative); Urine Blood Negative (Negative); Urine Color Amber; Urine Glucose Negative (Negative); Urine Ketones Negative (Negative); Urine Nitrite Negative (Negative); Urine Protein 1+(30 mg/dL) (Negative); Urine Red Blood Cell Absent (Absent); Urine Specific Gravity 1.015 (1.010-1.030); Urine Squamous Epithelial Cell Present (Absent); Urine Urobilinogen Negative (Negative); Urine White Blood Cell 2+(11-20/hpf) (Absent)
--- NOTE | 2019-04-21 03:54 | ED ---
Progress - Progress Note Progress Note: This pt is a sign out from Roney Dumont to Dr. Bowen at shift change [address] interpretation. - Results/Orders Results/Orders: Her Brain CT found no acute abnormalities. ED physician has reviewed this report and the pt will be discharged home per Satish Dumont's instructions. Course/Dx - Course Course Of Treatment: Patient complains of intermittent episodes of lightheadedness, headache and blurred vision starting 2 hours after discharge from [facility] [place] today.. Symptoms occur together and then resolve altogether. Episodes last for minutes at a time. Patient states blurred vision and headache have resolved, some lightheadedness here in the ED. Patient has history of discharge today from [facility] for chronic GI bleed, shortness of breath, CHF exacerbation and bilateral leg swelling. Patient and family deny facial droop, speech change, AMS, focal deficits, unilateral weakness, fever, cough, sore throat, CP, SOB, N/V/V abdominal pain, change in urine, change in BM. No anti-coag. Patient is on oxygen 2 L when necessary, usually at night. Medical history is DM 2, CK D stage III, COPD, PE, iron deficiency anemia, esophageal varices, chronic GI bleed, history of blood transfusions, HDL, hypothyroid. Patient has pending appointment next week with GI for further evaluation of chronic GI bleed. Per discharge summary patient was to follow-up with primary care for management of chronic conditions, including management of glucose and hypertension. Patient has history of noncompliance. Nonambulatory. Vital signs within normal limits. Labs are patient baseline. - Diagnoses Provider Diagnoses: Dizziness Discharge ED - Sign-Out/Discharge Documenting (check all that apply): Patient Departure - discharge - Discharge Plan Condition: Stable Disposition: HOME Patient Education Materials: Dizziness (ED) Referrals: Neena Moyer MD [Primary Care Provider] - 2 Days Additional Instructions: PLEASE RETURN TO THE EMERGENCY DEPARTMENT FOR ANY NEW OR WORSENING SYMPTOMS. FOLLOW UP WITH YOUR PRIMARY CARE PROVIDER IN 1-3 DAYS. - Billing Disposition and Condition Condition: STABLE Disposition: Home - Attestation Statements Document Initiated by Scribe: Yes Documenting Scribe: Arnel Cummings Provider For Whom Scribe is Documenting (Include Credential): Diya Bowen MD Scribe Attestation: Arnel Benitez, scribed for Diya Bowen MD on 04/21/19 at 0535. Scribe Documentation Reviewed: Yes Provider Attestation: The documentation as recorded by the scribeArnel accurately reflects the service I personally performed and the decisions made by me, Diya Bowen MD Status of Scribe Document: Viewed Procedures - Sedation Patient Received Moderate/Deep Sedation with Procedure: No
[2019-04-21 04:05] VITALS: BP 137/57
--- NOTE | 2019-04-23 06:10 | ED ---
Imaging and Labs Follow Up Follow Up Type: Labs/Cultures Labs/Culture Result: patient urine preliminary grew Klebsiella pneumonia >100,000. sent script for augmentin 50mg bidx5 days Patient Communication/Plan: spoke with patient about adding antibiotic on. Provider Diagnoses: Dizziness
== END 2019-04-21 03:58 | disposition home or self-care (01) ==
LOC: ED 23:45
DX: R42 Dizziness and giddiness (principal); R51 Headache; H53.8 Other visual disturbances; R60.9 Edema, unspecified; E11.9 Type 2 diabetes mellitus without complications; I25.119 Atherosclerotic heart disease of native coronary artery with unspecified angina pectoris; I11.0 Hypertensive heart disease with heart failure; J44.9 Chronic obstructive pulmonary disease, unspecified; Z99.81 Dependence on supplemental oxygen; I13.10 Hypertensive heart and chronic kidney disease without heart failure, with stage 1 through stage 4 chronic kidney disease, or unspecified chronic kidney disease; E11.22 Type 2 diabetes mellitus with diabetic chronic kidney disease; N18.3 Chronic kidney disease, stage 3 (moderate); Z88.8 Allergy status to other drugs, medicaments and biological substances; Z87.891 Personal history of nicotine dependence
CPT/HCPCS: 36415; 70450; 80053; 81003; 81015; 85025; 86140; 87077; 87086; 87186; 99283

== ENCOUNTER 2019-05-11 20:31 | Inpatient (IN) | payer MEDICARE, OTHER ==
[2019-05-11] MEDS ORDERED: methylPREDNISolone 125 MG* 2 ML VIAL IV ONE (20:39)
--- NOTE | 2019-05-11 20:43 | ED ---
Shortness of Breath - HPI Summary HPI Summary: This pt is a 78 Y/O F presenting to [facility] with a CC of SOB that started earlier this week and has been worsening since the onset. She states that she has had a productive cough and CP related to the cough along with wheezes. She states that when she moves she has been becoming winded and unable to breath. She denies any fevers, chills, N/V, headaches and sore throats. She states that when she lies down or moves she has aggravated symptoms. She denies any alleviation. She has a PMHx of diabetes, anemia, CHF, CAD, HTN, and COPD. - History of Current Complaint Chief Complaint: EDShortnessOfBreath Hx Obtained From: Patient Onset/Duration: Sudden Onset, Still Present, Worse Since - onset Timing: Constant Current Severity: Moderate Dyspnea At: Rest Aggravating Factors: Movement, Recumbent Position Alleviating Factors: Nothing Associated Signs & Symptoms: Negative - fevers, chills, N/V, headaches and sore throats, Cough (Productive), Wheezing, Chest Pain w/Cough - Allergy/Home Medications Allergies/Adverse Reactions: Allergies Allergy/AdvReac Type Severity Reaction Status Date / Time captopril Allergy Severe Hives Verified 02/16/19 01:45 Home Medications: Home Medications Tiotropium CAPSULE (NF) [Spiriva CAPSULE (NF)] 1 cap.inh INH DAILY 05/11/19 [ History Confirmed 05/11/19] PMH/Surg Hx/FS Hx/Imm Hx Previously Healthy: Yes Endocrine/Hematology History: Reports: Hx Blood Transfusions, Hx Diabetes, Hx Thyroid Disease, Hx Anemia - chronic iron infusions Cardiovascular History: Reports: Hx Angina, Hx Congestive Heart Failure, Hx Coronary Artery Disease, Hx Hypercholesterolemia, Hx Hypertension, Other Cardiovascular Problems/Disorders - cardiomyopathy Denies: Hx Myocardial Infarction, Hx Pacemaker/ICD Respiratory History: Reports: Hx Asthma, Hx Chronic Obstructive Pulmonary Disease (COPD), Other Respiratory Problems/Disorders - emphysema Denies: Hx Sleep Apnea GI History: Reports: Hx Cirrhosis, Hx Gastroesophageal Reflux Disease, Hx Gastrointestinal Bleed, Hx Hiatal Hernia - s/p repair, Hx Ulcer, Other GI Disorders - HELICOBACTER INFECTION History: Reports: Hx Chronic Renal Failure - Stage 3, Hx Renal Disease, Other Problems/Disorders - CKD stage 3 Musculoskeletal History: Reports: Hx Arthritis, Hx Back Problems, Other Musculoskeletal History - spinal stenosis Sensory History: Reports: Hx Cataracts - surgery with implants bilat eyes 96, Hx Contacts or Glasses - reading Denies: Hx Deafness, Hx Hearing Aid Opthamlomology History: Reports: Hx Cataracts - surgery with implants bilat eyes 96, Hx Contacts or Glasses - reading Neurological History: Reports: Other Neuro Impairments/Disorders - vertigo Psychiatric History: Reports: Hx Anxiety, Hx Depression, Other Psychiatric Issues/Disorders - PT REPORTS"STRESS" AND SAYS HER MD GAVE HER A MED FOR IT, UNSURE WHAT Denies: Hx Panic Disorder - Cancer History Hx Chemotherapy: No Hx Radiation Therapy: No Hx Palliative Cancer Treatment: No - Surgical History Surgery Procedure, Year, and Place: HERNIA. HYSTERECTOMY. CATERACTS. CARPAL TUNNEL. CYSTS REMOVED FROM BILATERAL ARMPITS. RTC RT. LT FOOT SURGERY Hx Anesthesia Reactions: No - Immunization History Date of Tetanus Vaccine: > 10 yers Date of Influenza Vaccine: 4910-2459 Infectious Disease History: Denies: Hx Clostridium Difficile, Hx Hepatitis, Hx Human Immunodeficiency Virus (HIV), Hx of Known/Suspected MRSA, Hx Shingles, Hx Tuberculosis, History Other Infectious Disease - Family History Known Family History: Positive: Diabetes, Other - Yes - CHF (Mother) - Social History Alcohol Use: None Hx Substance Use: No Substance Use Type: Reports: None Hx Tobacco Use: Yes Smoking Status (MU): Former Smoker Have You Smoked in the Last Year: No Review of Systems Negative: Fever, Chills Negative: Sore Throat Positive: Chest Pain - due to cough Positive: Shortness Of Breath, Cough - productive , Other - wheezes Negative: Vomiting, Nausea Negative: Headache All Other Systems Reviewed And Are Negative: Yes Physical Exam - Summary Physical Exam Summary: Appearance: Well-appearing, Well-nourished, lying in bed comfortably, Elderly woman in mild distress Tachypneic and tachycardic, does not feel febrile Skin: Warm, dry, no obvious rash Eyes: sclera anicteric, no conjunctival pallor ENT: mucous membranes moist, pharynx appears normal Neck: Supple, nontender Respiratory: Clear to auscultation, no signs of respiratory distress, mild diffuse wheezing, diminished breath sounds in the R lower lung metz, dull to percussion there c/w effusion Cardiovascular: Normal S1, S2. No murmurs. Normal distal pulses in tibial and radial bilaterally. Abdomen: Soft, nontender, normal active bowel sounds present Musculoskeletal: Normal, Strength/ROM Intact, Lower extremities have chronic venous stasis edema with thick and dry skin Neurological: A&Ox3, awake and alert, mentation is normal, speech is fluent and appropriate Psychiatric: affect is normal, does not appear anxious or depressed Triage Information Reviewed: Yes Vital Signs Reviewed: Yes Procedures - Sedation Patient Received Moderate/Deep Sedation with Procedure: No Diagnostics - Laboratory Result Diagrams: 05/12/19 04:25 05/12/19 04:25 Lab Statement: Any lab studies that have been ordered have been reviewed, and results considered in the medical decision making process. - Radiology CXR Radiology Interpretation Completed By: ED Physician Summary of Radiographic Findings: No focal infiltrate, moderate sized pleural effusion on the right, consistent from X-Ray last month. Pending offical review. - EKG 2124 Cardiac Rate: Tachycardia - 106 BPM EKG Rhythm: Sinus Rhythm ST Segment: Normal Ectopy: None Summary of EKG Findings: Sinus Tachycardia at 106 BPM, P waves, QRS complex, and T waves are within normal limits, T waves and intervals are normal, no ischemic changes. This is a normal EKG. Interpreted by Dr. Hunter at 2129. Course/Dx - Course Course Of Treatment: This pt is a 78Y/O F presenting to [facility] with a CC of SOB that started earlier this week and has been worsening since the onset. She states that she has had a productive cough and CP related to the cough along with wheezes. She states that when she moves she has been becoming winded and unable to breath. Her PE found that she is tachycardic and tachypnic without any fevers. She also has Diffuse wheezing egophony, diminished breath sounds in the R lower lobe, decreased sound with percussion. Her Lower extremities have chronic venous stasis edema with thick and dry skin. She has the following abnormalities in her laboratory values: Chloride 98, Creatinine 1.21, Glucose 469, Calcium 8.5, Alkaline Phosphatase 170, Albumin 3.1, Albumin/Globulin Ratio .8, RBC 2.43, Hgb 5.9, Hct 19, MCH 24, and RDW 18. She received the following medications during her ED course: Methylprednisolone Sodium Succinate 125 mg IV. Her CXR shows the following: No focal infiltrate, moderate sized pleural effusion on the right, consistent from X-Ray last month. Her EKG taken at 5 shows Sinus Tachycardia at 106 BPM, P waves, QRS complex, and T waves are within normal limits, T waves and intervals are normal, no ischemic changes. This is a normal EKG. She was admitted for further investigations by Dr. Roland, Hospitalist, at 2252 with a Dx of severe anemia and respiratory distress. - Diagnoses Provider Diagnoses: Severe anemia, Respiratory distress - Physician Notifications Discussed Care of Patient With: Ita Roland Time Discussed With Above Provider: 22:52 Instructed by Provider To: Admit As Inpatient Admit/Transition Orders Completed By ED Provider: Yes Discharge ED - Sign-Out/Discharge Documenting (check all that apply): Patient Departure - admitted - Discharge Plan Condition: Guarded Disposition: ADMITTED TO [facility] - Billing Disposition and Condition Condition: GUARDED Disposition: Admitted to [facility] - Attestation Statements Document Initiated by Vitaliy: Yes Documenting Scribe: Arnel Cummings Provider For Whom Vitaliy is Documenting (Include Credential): Mynor Oden MD Scribe Attestation: Arnel Benitez, scribed for Mynor Oden MD on 05/12/19 at 1829. Scribe Documentation Reviewed: Yes Provider Attestation: The documentation as recorded by the Arnel puri accurately reflects the service I personally performed and the decisions made by Mynor herrera MD Status of Scribe Document: Viewed
[2019-05-11 21:23] LABS: Albumin 3.1 g/dL (3.2-5.2); Albumin/Globulin Ratio 0.8 (1-3); BUN/Creatinine Ratio 19.8 (8-20); Calcium 8.5 mg/dL (8.6-10.3); EGFR African American 52.2 (>60); EGFR Non-African American 43.1 (>60); Globulin 3.7 g/dL (2-4); Potassium 4.3 mmol/L (3.5-5.0); Total Bilirubin 0.5 mg/dL (0.2-1.0); Total Protein 6.8 g/dL (6.4-8.9)
[2019-05-11 21:25] LABS: Troponin I 0.02 ng/mL (<0.04)
[2019-05-11 21:37] LABS: ABS Basophils 0.1 10^3/ul (0-0.2); ABS Eosinophils 0.2 10^3/ul (0-0.6); ABS Lymphocytes 1.2 10^3/ul (1.0-4.8); ABS Monocytes 0.5 10^3/ul (0-0.8); ABS Neutrophils 4.5 10^3/ul (1.5-7.7); Eosinophil % 2.8 %; Hematocrit 19 % (35-47); Hemoglobin 5.9 g/dL (12.0-16.0); Lymphocyte % 18.2 %; Mean Corpuscular HGB Conc 31 g/dL (31-36); Mean Corpuscular Hemoglobin 24 pg (27-31); Mean Corpuscular Volume 80 fL (80-97); Mean Platelet Volume 9.9 fL (7.4-10.4); Nucleated Red Blood Cells % 0.1; Platelet Count 151 10^3/uL (150-450); Red Blood Count 2.43 10^6 /uL (3.70-4.87); Red Cell Distribution Width 18 % (10-15); White Blood Count 6.3 10^3/uL (3.5-10.8)
[2019-05-11] MEDS ORDERED: Acetaminophen TAB* 325 MG PO PRN (23:33)
[2019-05-11] MEDS ORDERED: Albuterol 2.5 MG/3 ML NEB.SOL* (0.083%) INH PRN (23:33)
[2019-05-11] MEDS ORDERED: oxyCODONE TAB* 5 MG TAB PO PRN (23:37)
[2019-05-11] MEDS ORDERED: Nitroglycerin TAB 0.3 MG* 0.3 MG TAB SL PRN (23:37)
[2019-05-11] MEDS ORDERED: Insulin GLARGINE(*) 1 UNITS UNIT SUBCUT SCH (23:45)
[2019-05-12] MEDS: Atorvastatin* 10 MG TAB PO SCH ×2 (02:09→08:58)
[2019-05-12] MEDS: Terazosin CAP* 5 MG PO SCH ×2 (02:09→22:02)
[2019-05-12] MEDS: Carvedilol TAB* 25 MG PO SCH ×3 (02:09→21:59)
[2019-05-12] MEDS ORDERED: Insulin LISPRO* 1 UNITS UNIT SUBCUT ONE ×2 (03:05→10:30)
[2019-05-12] MEDS: Insulin LISPRO* 1 UNITS UNIT SUBCUT SCH ×5 (04:13→22:21)
[2019-05-12 04:41] LABS: Hematocrit 20 % (35-47); Hemoglobin 6.4 g/dL (12.0-16.0); Mean Corpuscular HGB Conc 32 g/dL (31-36); Mean Corpuscular Hemoglobin 25 pg (27-31); Mean Corpuscular Volume 80 fL (80-97); Mean Platelet Volume 9.6 fL (7.4-10.4); Platelet Count 124 10^3/uL (150-450); Red Blood Count 2.52 10^6 /uL (3.70-4.87); Red Cell Distribution Width 18 % (10-15); White Blood Count 5.7 10^3/uL (3.5-10.8)
[2019-05-12 04:52] LABS: BUN/Creatinine Ratio 24.1 (8-20); Calcium 7.7 mg/dL (8.6-10.3); EGFR African American 59.5 (>60); EGFR Non-African American 49.2 (>60); Potassium 4.6 mmol/L (3.5-5.0)
[2019-05-12 05:39] LABS: Polychromasia 2+
[2019-05-12 05:40] LABS: Platelet Morphology Large
[2019-05-12] MEDS: Levothyroxine TAB* 25 MCG TAB PO SCH (05:55)
[2019-05-12] MEDS ORDERED: Furosemide IV* 10 MG/ML 10 ML VIAL (100 MG) IV ONE (07:21)
--- NOTE | 2019-05-12 07:24 | HP ---
History of Present Illness - History of Present Illness Reason for Visit: shortness of breath History of Present Illness: 78 year old female with past medical history of CHF, CKD, cirrhosis complicated by portal hypertensive gastropathy and varices, she has chronic iron deficiency anemia with frequent blood transfusions and iron transfusion. She came in today with complaints of shortness of breath for a few days. XR shows worsened right sided pleural effusion. Her H/H has significantly dropped from the previous. In regards to her acute anemia, she said she has a chronic GIB and sees GI outpatient for that and she frequently gets admitted to the hospital for blood transfusions. - Past Medical History Cardiac: CAD, CHF, HTN, Hyperlipidemia Pulmonary: COPD Gastrointestinal: GI bleed, Gastritis, Peptic ulcer disease Heme/Onc: Iron deficiency anemia Hepatobiliary: Cirrhosis Renal/: Chronic renal insuff Endocrine: Diabetes - Past Social History Alcohol: None Drugs: None Lives: With Family Review of Systems - Measurements Intake and Output: Intake and Output Last 24 Hours 05/10/19 05/11/19 05/12/19 05/13/19 06:59 06:59 06:59 06:59 Intake Total 710 Balance 710 Weight 234 lb Intake: Oral 360 Packed Cells 350 Other: Estimated Void Large Date of Last Bowel 05/10/19 Movement # Voids 5 - Review of Systems Constitutional Symptoms: Positive: Weakness, Fatigue Dermatology: Negative: Normal, Rash, Skin Lesions, Cancer, Skin Lumps, Other HEENT: Negative: Normal, Change in Hearing, Vertigo, Dental Problems, Tinnitus, Sinus Problem, Other Eyes: Negative: Normal, Change in Vision, Double Vision, Eye Pain, Glaucoma, Cataract, Contacts or Glasses, Other Thyroid: Negative: Normal, Goiter, Thyroid Nodule, Cold Intolerance, Heat Intolerance , Sweatiness, Tremor, Frequent Defecation, Constipation, Palpitations, Primary Hypothyroidism, Primary Hyperthyroidism, Weight Loss, Weight Gain, Change in Skin/Hair, Change in Menstruation, Radiation Exposure, Other Pulmonary: Positive: Shortness of Breath Cardiology: Negative: Normal, Chest Pain, Shortness of Breath, Palpitations, Swelling of Ankles, Peripheral Vascular Dis, Edema, Faintness, Syncope, Claudication, Proximal NocturnalDyspnea, Orthopnoea, Other Gastroenterology: Positive: Melena Objective Active Medications: Acetaminophen (Tylenol Tab*) 650 mg PO Q4H PRN PRN Reason: MILD PAIN or TEMP > 100.4 Albuterol (Ventolin 2.5 Mg/3 Ml Neb.Rachel*) 2.5 mg INH [id number] AWAKE PRN PRN Reason: sob/wheezing Atorvastatin Calcium (Lipitor*) 10 mg PO DAILY [facility] Last Admin: 05/12/19 02:09 Dose: 10 mg Bumetanide (Bumex Tab*) 2 mg PO DAILY [facility] Carvedilol (Coreg Tab*) 25 mg PO BID [facility] Last Admin: 05/12/19 02:09 Dose: 25 mg Insulin Glargine (Lantus(*)) 30 units SUBCUT BEDTIME [facility] Last Admin: 05/12/19 04:14 Dose: 30 units Insulin Human Lispro (Humalog*) 0 units SUBCUT ACHS [facility]; Protocol Last Admin: 05/12/19 04:13 Dose: Not Given Levothyroxine Sodium (Synthroid Tab*) 25 mcg PO DAILY@0600 [facility] Last Admin: 05/12/19 05:55 Dose: 25 mcg Losartan Potassium (Cozaar Tab*) 50 mg PO DAILY [facility] Nitroglycerin (Nitroglycerin Tab 0.3 Mg*) 0.3 mg SL Q5M PRN PRN Reason: ANGINA Oxycodone HCl (Roxycodone Tab*) 5 mg PO Q6H PRN PRN Reason: PAIN Pantoprazole Sodium (Protonix Tab*) 40 mg PO DAILY [facility] Spironolactone (Aldactone Tab*) 50 mg PO BID [facility] Terazosin HCl (Hytrin Cap*) 10 mg PO BEDTIME [facility] Last Admin: 05/12/19 02:09 Dose: 10 mg Tiotropium [place] (Spiriva Respimat 2.5 Mcg) 2 puff INH DAILY [facility] Vital Signs - 8 hr 05/12/19 05/12/19 05/12/19 00:40 00:59 03:22 Temperature 98.1 F 97.9 F 98.3 F Pulse Rate 99 100 85 Respiratory 20 20 20 Rate Blood Pressure 184/64 169/69 120/52 (mmHg) O2 Sat by Pulse 100 99 100 Oximetry 05/12/19 05/12/19 05/12/19 03:43 05:50 06:05 Temperature 97.9 F 97.7 F 97.9 F Pulse Rate 83 83 83 Respiratory 20 20 20 Rate Blood Pressure 132/53 124/50 121/48 (mmHg) O2 Sat by Pulse 100 98 98 Oximetry Oxygen Devices in Use Now: Nasal Cannula Appearance: NID, morbidly obese Neck: NL Appearance and Movements; NL JVP, Trachea Midline Respiratory: - - difficult to auscultate due to body habitus Cardiovascular: NL Sounds; No Murmurs; No JVD Abdominal: - - distended, no tenderness Extremities: - - 2+ edema B/L Neurological: Alert and Oriented x 3 Result Diagrams: 05/12/19 04:25 05/12/19 04:25 Microbiology and Other Data: Microbiology 05/12/19 03:57 Transfusion Reaction Gram Stain - Final Blood Bag Assess/Plan/Problems-Billing Assessment: - Patient Problems (1) Dyspnea Current Visit: Yes Status: Acute Code(s): R06.00 - DYSPNEA, UNSPECIFIED SNOMED Code(s): 548088987 Comment: Chief complaint is ZAMUDIO. Multifactorial, CXR showed worsening right sided effusion. She is acutely anemic and morbidly obese Lasix blood transfusion with lasix in between as to not worsen the effusion/edema. (2) CHF (congestive heart failure) Current Visit: No Status: Acute Code(s): I50.9 - HEART FAILURE, UNSPECIFIED SNOMED Code(s): 48726061 Comment: - EF 40-45%, on last ECHO fluid overloaded on admission with right sided effusion and will get worse with blood transfusion. - additional IV lasix - Continue spironolactone, Carvedilol, bumex, and Losartan - Strict I/O and daily weight - Optimize lytes mag>2 K>4 (3) CKD (chronic kidney disease) Current Visit: No Status: Acute Code(s): N18.9 - CHRONIC KIDNEY DISEASE, UNSPECIFIED SNOMED Code(s): 591284446 Comment: Slight increase in creatinine with chronic GIB blood transfusion now and diuresis after (4) COPD (chronic obstructive pulmonary disease) Current Visit: No Status: Acute Code(s): J44.9 - CHRONIC OBSTRUCTIVE PULMONARY DISEASE, UNSPECIFIED SNOMED Code(s): 00493102 Comment: On home dose of 2L O2 that she wears intermittently - PRN Duonebs (5) DM2 (diabetes mellitus, type 2) Current Visit: No Status: Acute Comment: uncontrolled - Lantus 30 nightly and meal coverage FS ACHS -A1C pending (6) DVT prophylaxis Current Visit: No Status: Acute Code(s): AXO1105 - SNOMED Code(s): 297737736 Comment: - SCDs -Pharmacologic prophylaxis contraindicated due to GIB (7) Full code status Current Visit: No Status: Acute Code(s): Z78.9 - OTHER SPECIFIED HEALTH STATUS SNOMED Code(s): 526176236 (8) Hyperglycemia Current Visit: No Status: Acute Code(s): R73.9 - HYPERGLYCEMIA, UNSPECIFIED SNOMED Code(s): 30651629 Comment: uncontrolled. received steroids in the ER - lantus 30 nightly - 12 units one time and meal coverage after (9) TAHIR (iron deficiency anemia) Current Visit: No Status: Acute Code(s): D50.9 - IRON DEFICIENCY ANEMIA, UNSPECIFIED SNOMED Code(s): 67483485 Comment: has known AVMs in GIT, which is presumably the source of chronic bleeding -Obtains IV Iron transfusion as outpt every 3 months and blood transfusions just as often (10) Morbid obesity Current Visit: No Status: Acute Code(s): E66.01 - MORBID (SEVERE) OBESITY DUE TO EXCESS CALORIES SNOMED Code(s): 348021797 Comment: BMI 40.3 on 07/01/18. (11) ONUR (obstructive sleep apnea) Current Visit: No Status: Acute Code(s): G47.33 - OBSTRUCTIVE SLEEP APNEA ( ADULT) (PEDIATRIC) SNOMED Code(s): 50815444 Comment: Non-compliant with CPAP in the past
[2019-05-12] MEDS: SPIRIVA Respimat* (tiotropium) 2.5 mcg/inh Inhaler INH SCH (07:52)
[2019-05-12] MEDS ORDERED: Pantoprazole IV* 40 MG IV SCH (08:00)
[2019-05-12] MEDS: Spironolactone TAB* 25 MG PO SCH ×2 (08:59→22:01)
[2019-05-12] MEDS: Losartan TAB* 25 MG PO SCH (08:59)
[2019-05-12] MEDS: Bumetanide TAB* 2 MG PO SCH (08:59)
[2019-05-12] MEDS ORDERED: Pantoprazole TAB * 40 MG TAB PO SCH (09:00)
[2019-05-12 10:15] LABS: Ferritin 22.9 ng/mL (11-307)
[2019-05-12] MEDS: Pantoprazole* 80 mg IN NS 80 MG/250 ML BAG IV SCH ×3 (10:32→21:19)
--- NOTE | 2019-05-12 17:26 | PN ---
Subjective Date of Service: 05/12/19 Interval History: Reports feeling tired and sob. Multiple hospitalizations for gi bleed and transfusions Objective Active Medications: Acetaminophen (Tylenol Tab*) 650 mg PO Q4H PRN PRN Reason: MILD PAIN or TEMP > 100.4 Albuterol (Ventolin 2.5 Mg/3 Ml Neb.Rachel*) 2.5 mg INH [id number] AWAKE PRN PRN Reason: sob/wheezing Atorvastatin Calcium (Lipitor*) 10 mg PO DAILY [facility] Last Admin: 05/12/19 08:58 Dose: 10 mg Bumetanide (Bumex Tab*) 2 mg PO DAILY [facility] Last Admin: 05/12/19 08:59 Dose: 2 mg Carvedilol (Coreg Tab*) 25 mg PO BID [facility] Last Admin: 05/12/19 08:59 Dose: 25 mg Pantoprazole Sodium (Protonix Iv Bag*) 80 mg in 250 mls @ 25 mls/hr IV Q10H [facility] Last Admin: 05/12/19 11:10 Dose: 25 mls/hr Insulin Glargine (Lantus(*)) 40 units SUBCUT BEDTIME [facility] Insulin Human Lispro (Humalog*) 0 units SUBCUT ACHS [facility]; Protocol Last Admin: 05/12/19 17:06 Dose: 15 units Levothyroxine Sodium (Synthroid Tab*) 25 mcg PO DAILY@0600 [facility] Last Admin: 05/12/19 05:55 Dose: 25 mcg Losartan Potassium (Cozaar Tab*) 50 mg PO DAILY [facility] Last Admin: 05/12/19 08:59 Dose: 50 mg Nitroglycerin (Nitroglycerin Tab 0.3 Mg*) 0.3 mg SL Q5M PRN PRN Reason: ANGINA Oxycodone HCl (Roxycodone Tab*) 5 mg PO Q6H PRN PRN Reason: PAIN Spironolactone (Aldactone Tab*) 50 mg PO BID [facility] Last Admin: 05/12/19 08:59 Dose: 50 mg Terazosin HCl (Hytrin Cap*) 10 mg PO BEDTIME [facility] Last Admin: 05/12/19 02:09 Dose: 10 mg Tiotropium [place] (Spiriva Respimat 2.5 Mcg) 2 puff INH DAILY [facility] Last Admin: 05/12/19 07:52 Dose: 2 puff Vital Signs - 8 hr 05/12/19 05/12/19 11:28 15:08 Temperature 98.1 F 97.5 F Pulse Rate 83 84 Respiratory 18 20 Rate Blood Pressure 137/55 129/49 (mmHg) O2 Sat by Pulse 97 96 Oximetry Oxygen Devices in Use Now: None, Nasal Cannula Eyes: No Scleral Icterus Ears/Nose/Mouth/Throat: NL Teeth, Lips, Gums Neck: NL Appearance and Movements; NL JVP Respiratory: Symmetrical Chest Expansion and Respiratory Effort Cardiovascular: NL Sounds; No Murmurs; No JVD Abdominal: NL Sounds; No Tenderness; No Distention Extremities: - - some edema Neurological: Alert and Oriented x 3 Result Diagrams: 05/12/19 04:25 05/12/19 04:25 Microbiology and Other Data: Microbiology 05/12/19 03:57 Transfusion Reaction Gram Stain - Final Blood Bag Assess/Plan/Problems-Billing Assessment: - Patient Problems (1) GI bleed Current Visit: Yes Status: Acute Code(s): K92.2 - GASTROINTESTINAL HEMORRHAGE, UNSPECIFIED SNOMED Code(s): 34532887 Comment: h/o multiple bleeding AVMs Multiple EGDs Rectal and stool guiac positive Appreciate GI input PPI drip H/o Varices and Liver Cirrhosis Will hold off on octreotide per d/w GI Transfused 2 units PRBC Will follow H/H Check iron levels h/o iron def (2) Iron deficiency Current Visit: Yes Status: Acute Code(s): E61.1 - IRON DEFICIENCY SNOMED Code(s): 67631707 Comment: h/o iron deficiency will recheck iron levels (3) Hyperglycemia Current Visit: No Status: Acute Code(s): R73.9 - HYPERGLYCEMIA, UNSPECIFIED SNOMED Code(s): 28611541 Comment: uncontrolled. received steroids in the ER - lantus 30 nightly - Will increase ISS to BMI>25 scale -Titrate lantus -BS in 400s-500s (4) CHF (congestive heart failure) Current Visit: Yes Status: Acute Code(s): I50.9 - HEART FAILURE, UNSPECIFIED SNOMED Code(s): 00281208 Comment: h/o CHF Recd lasix with transfusion Will eval if further lasix is needed Repeat CXR in am Will consider Echo if needed
--- NOTE | 2019-05-12 18:28 | CONS ---
CC: Samir Marcial MD; Neena Moyer MD * CONSULTATION REPORT: DATE OF CONSULT: 05/12/19 PRIMARY SALES CLOSER: Samir Marcial MD. PRIMARY CARE PHYSICIAN: Neena Moyer MD. REASON FOR CONSULT: Anemia due to chronic blood loss, multifactorial. REQUESTING PHYSICIAN: Dr. Chavez. HISTORY OF PRESENT ILLNESS: This is a very pleasant 78-year-old - [place] female, well known to our service, with a past medical history of small -bowel; stomach and colon AVMs, small esophageal varices, portal hypertensive gastropathy, portal hypertension, CKD, COPD, and insulin-dependent diabetes who presented to the emergency room with 2 to 3 days of dyspnea. She has had multiple admissions for this in the past, the last being around January 2019. She states for about 2-3 days she had progressive dyspnea on exertion and then eventually at rest and this prompted her evaluation in the emergency room. Unlike prior admissions, she normally would see darkened stool, but has not noticed any change in the stool color or type. She denies any janet melena or hematochezia. Denies any diarrhea or constipation. She denies any abdominal discomfort. Denies any nausea or emesis. Denies any hematemesis. No dysphagia or odynophagia. Denies any significant weight change. In the past, had been getting some iron infusions, but iron stores had rapidly increased and recently has been on transfusion alone p.r.n. Her last upper endoscopy was by myself in January 2019. During that, I ablated 3 AVMs with APC. She had very small nonbleeding grade 1 esophageal varices completely flattened with insufflation with no high-risk stigmata. The remainder of the 14-point review of systems is grossly negative. PAST MEDICAL HISTORY: Insulin-dependent diabetes type 2, morbid obesity, portal hypertension, gastropathy, esophageal varices, small-bowel AVMs, peptic ulcer disease, nonischemic cardiomyopathy, COPD, hypertension, CKD, iron deficiency anemia, and spinal stenosis. PAST SURGICAL HISTORY: Hysterectomy, hernia repair, carpal tunnel release, foot surgery, rotator cuff repair, cataract, multiple upper endoscopies with the last being in January 2019 with ablation of 3 nonbleeding AVMs, portal hypertensive gastropathy, and small gastric varices. There was no fresh or old blood on the entire exam. She had a small-bowel capsule endoscopy in 2017 with numerous AVMs in the mid jejunum and distal ileum. HOME MEDICATIONS: Include: 1. Albuterol. 2. Calcium carbonate. 3. Carvedilol. 4. Vitamin B12. 5. Insulin. 6. Levothyroxine. 7. Losartan. 8. Multivitamin. 9. Nitroglycerin. 10. Omeprazole. 11. Oxycodone. 12. Simvastatin. 13. Spironolactone. 14. Terazosin. 15. Tiotropium. 16. Triamcinolone. 17. Bumex. 18. Potassium. ALLERGIES: Include CAPTOPRIL. FAMILY HISTORY: No family history of GI cancer or inflammatory bowel disease. SOCIAL HISTORY: Former smoker, quit in 2001. Denies any alcohol usage. REVIEW OF SYSTEMS: Remainder of the 14-point review of systems is grossly negative, except for as described in the HPI. PHYSICAL EXAM: Vital Signs: Blood pressure is 137/55, pulse is 83, respiratory rate is 18, she is 97% on room air, T-max is 98.1. In general, alert and oriented, in no acute distress. HEENT: Atraumatic and normocephalic. Pupils equal, round, and reactive to light. Extraocular movements are intact. Conjunctivae are pink. Sclerae anicteric. Cardiovascular : Regular rate and rhythm, S1, S2. Pulmonary Exam: Diminished breath sounds, right greater than left. Abdomen is soft, nontender, nondistended. Morbidly obese. Bowel sounds positive. No guarding or rebound. Psych: Appropriate mood and affect. Extremities: 2+ to 3+ edema bilaterally. DIAGNOSTIC STUDIES/LAB DATA: Laboratory Data: Hemoglobin on admission 5.9; at 4 a.m. this morning was 6.4, platelet count is 124. Sodium 132, potassium 4.6, chloride 97, BUN is 26, creatinine 1.08, glucose 506, calcium 7.17, iron 214, TIBC is 312, percent sat is 69. AST is 20, ALT is 17, alk phos is 170. Rectal exam done by hospitalist revealed no janet melena or hematochezia, but it was occult positive. ASSESSMENT AND PLAN: This is a 78-year-old female with a history of multifactorial anemia with a component of chronic loss from arteriovenous malformations. 1. Anemia due to chronic blood loss. Her hemoglobin has been downtrending since around 04/18/19. She has chronic loss from her small-bowel predominant arteriovenous malformation, although she does have arteriovenous malformations within the colon and occasionally has had them in the stomach. Unfortunately, on each endoscopy, we have yet to find a bleeding arteriovenous malformation; however, multiple cauterization attempts with either BICAP or APC have been done. At this point, I agree with the transfusion of 2 units (do not over transfuse) given the small esophageal varices that have been present. Given the chronic nature of her loss and evidence of small-bowel arteriovenous malformations on capsule study in 2017, it may be worthwhile to consider balloon enteroscopy as an outpatient, both antegrade and retrograde, with full APC of any AVMs that are visualized. If her hemoglobin is continuing to downtrend, we will consider upper endoscopy with a push enteroscopy here at [facility]. She is hemodynamically stable at this point without evidence of tachycardia or hypotension. Agree with IV PPI. Given the small varices and hemodynamic stability on recent endoscopy, does not warrant octreotide at this point. Would recommend watching H and H every 6 hours and we will follow along with you. She had a previous echocardiogram that does not show any evidence of aortic stenosis contributing to her arteriovenous malformation formation. 2. Cirrhosis secondary to nonalcoholic steatohepatitis, small varices present, does not have evidence of gross ascites. Continue followup with Dr. Marcial as outpatient. Finally, in terms of chronic prevention, could consider octreotide LAR as an outpatient; however, the data behind this is incredibly weak. Thalidomide has also been considered, but the side effects from therapy are significant. I feel the balloon enteroscopy may be the best option in the future for this lady. [id number]/[facility] #: [id number] WENDY
[2019-05-12 21:40] LABS: Hematocrit 22 % (35-47); Hemoglobin 7.1 g/dL (12.0-16.0)
[2019-05-12] MEDS: Insulin GLARGINE(*) 1 UNITS UNIT SUBCUT SCH (22:20)
[2019-05-13 01:07] LABS: Urine Appearance Cloudy; Urine Color Yellow
[2019-05-13 01:08] LABS: Urine Bilirubin 0 (Negative); Urine Blood Negative (Negative); Urine Glucose Negative (Negative); Urine Ketones Negative (Negative); Urine Nitrite 0 (Negative); Urine Protein 1+(30 mg/dL) (Negative); Urine Urobilinogen Negative (Negative)
[2019-05-13 01:16] LABS: Urine Bacteria 2+ (Absent); Urine Red Blood Cell Absent (Absent); Urine Squamous Epithelial Cell Present (Absent); Urine White Blood Cell 2+(11-20/hpf) (Absent)
[2019-05-13 06:09] LABS: Hematocrit 20 % (35-47); Hemoglobin 6.8 g/dL (12.0-16.0); Mean Corpuscular HGB Conc 34 g/dL (31-36); Mean Corpuscular Hemoglobin 27 pg (27-31); Mean Corpuscular Volume 79 fL (80-97); Mean Platelet Volume 9.6 fL (7.4-10.4); Platelet Count 117 10^3/uL (150-450); Red Blood Count 2.56 10^6 /uL (3.70-4.87); Red Cell Distribution Width 18 % (10-15); White Blood Count 6.3 10^3/uL (3.5-10.8)
[2019-05-13] MEDS: Pantoprazole* 80 mg IN NS 80 MG/250 ML BAG IV SCH ×3 (06:22→17:15)
[2019-05-13] MEDS: Levothyroxine TAB* 25 MCG TAB PO SCH (06:23)
[2019-05-13 06:26] LABS: Albumin 2.4 g/dL (3.2-5.2); Albumin/Globulin Ratio 0.8 (1-3); BUN/Creatinine Ratio 25.8 (8-20); Calcium 7.6 mg/dL (8.6-10.3); EGFR African American 52.7 (>60); EGFR Non-African American 43.6 (>60); Globulin 2.9 g/dL (2-4); Potassium 3.6 mmol/L (3.5-5.0); Total Bilirubin 0.6 mg/dL (0.2-1.0); Total Protein 5.3 g/dL (6.4-8.9)
[2019-05-13 06:29] LABS: ABS Basophils 0.1 10^3/ul (0-0.2); ABS Eosinophils 0.1 10^3/ul (0-0.6); ABS Lymphocytes 1.6 10^3/ul (1.0-4.8); ABS Monocytes 0.4 10^3/ul (0-0.8); ABS Neutrophils 4.2 10^3/ul (1.5-7.7); ABS Nucleated RBC 0.1 10^3/ul; Eosinophil % 2.1 %; Lymphocyte % 24.9 %
[2019-05-13] MEDS: SPIRIVA Respimat* (tiotropium) 2.5 mcg/inh Inhaler INH SCH (08:05)
[2019-05-13] MEDS: Losartan TAB* 25 MG PO SCH (08:28)
[2019-05-13] MEDS: Insulin LISPRO* 1 UNITS UNIT SUBCUT SCH ×4 (08:28→22:02)
[2019-05-13] MEDS: Spironolactone TAB* 25 MG PO SCH ×2 (08:28→21:00)
[2019-05-13] MEDS: Carvedilol TAB* 25 MG PO SCH ×2 (08:29→20:59)
[2019-05-13] MEDS: Atorvastatin* 10 MG TAB PO SCH (08:29)
[2019-05-13] MEDS: Bumetanide TAB* 2 MG PO SCH (08:29)
[2019-05-13] MEDS ORDERED: Midazolam* 1 MG/ML 10 ML VIAL (10 MG) ONE (11:35)
[2019-05-13] MEDS ORDERED: fentaNYL* 50 MCG/ML 2 ML VIAL (100 MCG VIAL) ONE (11:35)
--- NOTE | 2019-05-13 12:44 | PN ---
Progress Note - Progress Note Date of Service: 05/13/19 Note: GI Brief EGD with push enteroscopy and flexible sigmoidoscopy note E: Small esophageal varices, flatten with insufflation. No high risk stigmata. G: Portal hypertensive gastropathy D: Multiple stable polyps J: Past ligament of treitz: no AVMs No fresh or old blood on entire exam Flex sig to mid/prox sigmoid Retained stool limited some views But no gross melena or hematochezia. No AVMs visualized Rec: Advance diet Monitor Hgb, transfuse prn exclude other causes of anemia Outpatient follow up with Dr. Marcial for consideration for referral for balloon enteroscopy or repeat local capsule endoscopy. Shyam Gardiner DO 05/13/19 [id number]
--- NOTE | 2019-05-13 14:16 | PN ---
Subjective Date of Service: 05/13/19 Interval History: Reports more energy today.Less sob Objective Active Medications: Acetaminophen (Tylenol Tab*) 650 mg PO Q4H PRN PRN Reason: MILD PAIN or TEMP > 100.4 Albuterol (Ventolin 2.5 Mg/3 Ml Neb.Rachel*) 2.5 mg INH [id number] AWAKE PRN PRN Reason: sob/wheezing Atorvastatin Calcium (Lipitor*) 10 mg PO DAILY [facility] Last Admin: 05/13/19 08:29 Dose: 10 mg Bumetanide (Bumex Tab*) 2 mg PO DAILY [facility] Last Admin: 05/13/19 08:29 Dose: 2 mg Carvedilol (Coreg Tab*) 25 mg PO BID [facility] Last Admin: 05/13/19 08:29 Dose: 25 mg Pantoprazole Sodium (Protonix Iv Bag*) 80 mg in 250 mls @ 25 mls/hr IV Q10H [facility] Last Admin: 05/13/19 08:37 Dose: Not Given Insulin Glargine (Lantus(*)) 40 units SUBCUT BEDTIME [facility] Last Admin: 05/12/19 22:20 Dose: 40 unit Insulin Human Lispro (Humalog*) 0 units SUBCUT ACHS [facility]; Protocol Last Admin: 05/13/19 08:28 Dose: 6 units Levothyroxine Sodium (Synthroid Tab*) 25 mcg PO DAILY@0600 [facility] Last Admin: 05/13/19 06:23 Dose: 25 mcg Losartan Potassium (Cozaar Tab*) 50 mg PO DAILY [facility] Last Admin: 05/13/19 08:28 Dose: 50 mg Nitroglycerin (Nitroglycerin Tab 0.3 Mg*) 0.3 mg SL Q5M PRN PRN Reason: ANGINA Oxycodone HCl (Roxycodone Tab*) 5 mg PO Q6H PRN PRN Reason: PAIN Spironolactone (Aldactone Tab*) 50 mg PO BID [facility] Last Admin: 05/13/19 08:28 Dose: 50 mg Terazosin HCl (Hytrin Cap*) 10 mg PO BEDTIME [facility] Last Admin: 05/12/19 22:02 Dose: 10 mg Tiotropium [place] (Spiriva Respimat 2.5 Mcg) 2 puff INH DAILY [facility] Last Admin: 05/13/19 08:05 Dose: 2 puff Vital Signs - 8 hr 05/13/19 05/13/19 05/13/19 07:19 08:05 08:42 Temperature 97.3 F Pulse Rate 80 74 Respiratory 22 16 22 Rate Blood Pressure 134/53 (mmHg) O2 Sat by Pulse 99 99 Oximetry 05/13/19 10:48 Temperature 97.7 F Pulse Rate 64 Respiratory 18 Rate Blood Pressure 116/41 (mmHg) O2 Sat by Pulse 100 Oximetry Oxygen Devices in Use Now: Nasal Cannula Eyes: No Scleral Icterus Ears/Nose/Mouth/Throat: NL Teeth, Lips, Gums Neck: NL Appearance and Movements; NL JVP Respiratory: Symmetrical Chest Expansion and Respiratory Effort, Clear to Auscultation Cardiovascular: NL Sounds; No Murmurs; No JVD Abdominal: NL Sounds; No Tenderness; No Distention Extremities: - - edema present Result Diagrams: 05/13/19 05:58 05/13/19 05:58 Microbiology and Other Data: Microbiology 05/12/19 03:57 Transfusion Reaction Gram Stain - Final Blood Bag Assess/Plan/Problems-Billing Assessment: - Patient Problems (1) GI bleed Current Visit: Yes Status: Acute Code(s): K92.2 - GASTROINTESTINAL HEMORRHAGE, UNSPECIFIED SNOMED Code(s): 17788464 Comment: h/o multiple bleeding AVMs Multiple EGDs Rectal and stool guiac positive Appreciate GI input PPI drip H/o Varices and Liver Cirrhosis Will hold off on octreotide per d/w GI Transfused 2 units PRBC Will follow H/H H/o iron deficiency, iron levels good this time Plan for EGD with Dr Gardiner today (2) Iron deficiency Current Visit: Yes Status: Acute Code(s): E61.1 - IRON DEFICIENCY SNOMED Code(s): 18560939 Comment: h/o iron deficiency levels good this time (3) Hyperglycemia Current Visit: No Status: Acute Code(s): R73.9 - HYPERGLYCEMIA, UNSPECIFIED SNOMED Code(s): 93658535 Comment: uncontrolled. received steroids in the ER - lantus 30 nightly - Increased ISS to BMI>25 scale -Titrated lantus -BS in 400s-500s yesterday,improved (4) CHF (congestive heart failure) Current Visit: Yes Status: Acute Code(s): I50.9 - HEART FAILURE, UNSPECIFIED SNOMED Code(s): 49503952 Comment: h/o CHF Recd lasix with transfusion Will eval if further lasix is needed Repeat CXR in am does not show pul edema Continue home dose bumex (5) CKD (chronic kidney disease) Current Visit: Yes Status: Acute Code(s): N18.9 - CHRONIC KIDNEY DISEASE, UNSPECIFIED SNOMED Code(s): 520423935 Comment: stable
--- NOTE | 2019-05-13 15:15 | PRO ---
CC: Dr. Samir Marcial; Dr. Neena Moyer * ESOPHAGOGASTRODUODENOSCOPY WITH PUSH ENTEROSCOPY AND FLEXIBLE SIGMOIDOSCOPY REPORT: DATE OF PROCEDURE: 05/13/19 - ROOM #443 PRIMARY PLATING TANK OPERATOR APPRENTICE: Dr. Samir Marcial. PRIMARY CARE PHYSICIAN: Dr. Neena Moyer. INDICATION FOR PROCEDURE: Anemia due to chronic blood loss. PROCEDURE PERFORMED: Complete esophagogastroduodenoscopy with push enteroscopy past the ligament of Treitz and complete flexible sigmoidoscopy to mid to proximal sigmoid colon unprepped. MEDICATIONS GIVEN: Include 3 mg IV Midazolam, 25 mcg IV fentanyl. DESCRIPTION OF PROCEDURE: After the flexible sigmoidoscopy procedure and EGD with push enteroscopy procedure were explained to the patient including the risks, benefits, and alternatives with the risks not limited to perforation, surgery, missed lesions, and/or , written consent was then obtained, IV medication was given, and a bite-block was placed between the teeth. The pediatric Olympus gastroscope was then inserted into the patient's oropharynx into the tubular esophagus. The tubular esophagus had small varices that completely flattened with insufflation. No high-risk stigmata were visualized. No fresh or old blood. The scope was advanced through the lower esophageal sphincter into the stomach. Portal hypertensive gastropathy diffuse was noted throughout the exam. Retroflexion did not reveal any gastric varices. There was no fresh or old blood noted. The scope was then advanced through the widely patent pylorus into the duodenal bulb, C-loop, distal duodenum, and then past the ligament of Treitz into the jejunum. No AVMs were noted. No fresh or old blood was noted. On slow withdrawal inspecting for AVMs, none were observed in the segment that was visualized. The scope was then removed from the patient. She was then rotated. A rectal exam was performed. The rectal exam revealed brown stool. The pediatric Olympus colonoscope was then inserted into the patient's rectum and advanced to about the proximal sigmoid colon. No fresh or old blood was visualized on the entire exam. There was some solid stool within there, but still descent views were able to be obtained of the mucosa. No AVMs were noted and again no fresh or old blood. The scope was then removed from the patient. She tolerated the procedure well. She returned to the recovery room in stable condition. IMPRESSION: 1. Complete esophagogastroduodenoscopy with push enteroscopy. 2. Portal hypertensive gastropathy, nonbleeding. 3. Small esophageal varices that completely flattened with insufflation. 4. Stable gastric polyps. 5. No arteriovenous malformations noted to proximal jejunum. 6. Complete flexible sigmoidoscopy to proximal to mid sigmoid colon. 7. No arteriovenous malformations noted. No fresh or old blood noted. 8. Solid stool limited some visualization. Was unprepped. RECOMMENDATIONS: Continue to monitor the H and H. Transfuse as necessary for hemoglobin above 7, may be a little bit higher given her cardiac disease and likely chronic loss from small bowel AVMs. We would also workup to make sure there is no other cause of her anemia at this time. She can follow up with Dr. Marcial as an outpatient for consideration for repeat local capsule endoscopy or direct balloon enteroscopy of the remaining small bowel to consider for ablation of AVMs. The prior capsule in 2017 had been more in the distal portion , perhaps retrograde would be a good approach. In addition, can consider octreotide LAR or thalidomide; however, the safety profile and data behind these are weak that can be discussed as an outpatient. [id number]/[facility] #: [id number] [facility]
[2019-05-13] MEDS: Terazosin CAP* 5 MG PO SCH (21:00)
[2019-05-13] MEDS ORDERED: Benzocaine/Menthol LOZ* 1 LOZENGE PO PRN (21:10)
[2019-05-13] MEDS: Insulin GLARGINE(*) 1 UNITS UNIT SUBCUT SCH (22:03)
[2019-05-14] MEDS: Pantoprazole* 80 mg IN NS 80 MG/250 ML BAG IV SCH ×2 (03:10→12:36)
[2019-05-14] MEDS: Levothyroxine TAB* 25 MCG TAB PO SCH (05:06)
[2019-05-14 05:28] LABS: ABS Eosinophils 0.2 10^3/ul (0-0.6); ABS Lymphocytes 1.1 10^3/ul (1.0-4.8); ABS Monocytes 0.6 10^3/ul (0-0.8); Eosinophil % 3.8 %; Hematocrit 21 % (35-47); Hemoglobin 6.9 g/dL (12.0-16.0); Lymphocyte % 17.9 %; Mean Corpuscular HGB Conc 32 g/dL (31-36); Mean Corpuscular Hemoglobin 26 pg (27-31); Mean Corpuscular Volume 81 fL (80-97); Mean Platelet Volume 9.5 fL (7.4-10.4); Nucleated Red Blood Cells % 0.6; Platelet Count 106 10^3/uL (150-450); Red Blood Count 2.66 10^6 /uL (3.70-4.87); Red Cell Distribution Width 18 % (10-15); White Blood Count 5.9 10^3/uL (3.5-10.8)
[2019-05-14 05:44] LABS: BUN/Creatinine Ratio 22.7 (8-20); Calcium 7.7 mg/dL (8.6-10.3); EGFR African American 43.8 (>60); EGFR Non-African American 36.2 (>60); Potassium 3.9 mmol/L (3.5-5.0)
[2019-05-14] MEDS: Bumetanide TAB* 2 MG PO SCH (08:39)
[2019-05-14] MEDS: Insulin LISPRO* 1 UNITS UNIT SUBCUT SCH ×4 (08:39→20:21)
[2019-05-14] MEDS: Losartan TAB* 25 MG PO SCH (08:40)
[2019-05-14] MEDS: Spironolactone TAB* 25 MG PO SCH ×2 (08:42→20:20)
[2019-05-14] MEDS: Carvedilol TAB* 25 MG PO SCH ×2 (08:42→20:20)
[2019-05-14] MEDS: Atorvastatin* 10 MG TAB PO SCH (08:42)
[2019-05-14] MEDS: SPIRIVA Respimat* (tiotropium) 2.5 mcg/inh Inhaler INH SCH (08:48)
[2019-05-14] MEDS ORDERED: Bumetanide IV* 0.25 MG/ML 4 ML VIAL SLOW PUSH ONE (16:00)
--- NOTE | 2019-05-14 16:37 | PN ---
Subjective Date of Service: 05/14/19 Interval History: Breathing better sitting up but SOB when lying flat or reclined cough no hematochezia or black stool Objective Active Medications: Acetaminophen (Tylenol Tab*) 650 mg PO Q4H PRN PRN Reason: MILD PAIN or TEMP > 100.4 Albuterol (Ventolin 2.5 Mg/3 Ml Neb.Rachel*) 2.5 mg INH [id number] AWAKE PRN PRN Reason: sob/wheezing Atorvastatin Calcium (Lipitor*) 10 mg PO DAILY [facility] Last Admin: 05/14/19 08:42 Dose: 10 mg Bumetanide (Bumex Tab*) 2 mg PO DAILY [facility] Last Admin: 05/14/19 08:39 Dose: 2 mg Carvedilol (Coreg Tab*) 25 mg PO BID [facility] Last Admin: 05/14/19 08:42 Dose: 25 mg Pantoprazole Sodium (Protonix Iv Bag*) 80 mg in 250 mls @ 25 mls/hr IV Q10H [facility] Last Admin: 05/14/19 12:36 Dose: Not Given Insulin Glargine (Lantus(*)) 43 units SUBCUT BEDTIME [facility] Insulin Human Lispro (Humalog*) 0 units SUBCUT [facility]; Protocol Last Admin: 05/14/19 12:03 Dose: 12 units Levothyroxine Sodium (Synthroid Tab*) 25 mcg PO DAILY@0600 [facility] Last Admin: 05/14/19 05:06 Dose: 25 mcg Losartan Potassium (Cozaar Tab*) 50 mg PO DAILY [facility] Last Admin: 05/14/19 08:40 Dose: 50 mg Nitroglycerin (Nitroglycerin Tab 0.3 Mg*) 0.3 mg SL Q5M PRN PRN Reason: ANGINA Oxycodone HCl (Roxycodone Tab*) 5 mg PO Q6H PRN PRN Reason: PAIN Spironolactone (Aldactone Tab*) 50 mg PO BID [facility] Last Admin: 05/14/19 08:42 Dose: 50 mg Terazosin HCl (Hytrin Cap*) 10 mg PO BEDTIME [facility] Last Admin: 05/13/19 21:00 Dose: 10 mg Throat Lozenges (Chloraseptic Flor*) 1 flor PO Q2H PRN PRN Reason: SORE THROAT Last Admin: 05/13/19 21:36 Dose: 1 flor Tiotropium [place] (Spiriva Respimat 2.5 Mcg) 2 puff INH DAILY [facility] Last Admin: 05/14/19 08:48 Dose: 2 puff Vital Signs - 8 hr 05/14/19 05/14/19 05/14/19 08:48 11:15 15:15 Temperature 97.7 F 97.2 F Pulse Rate 76 65 64 Respiratory 16 24 20 Rate Blood Pressure 115/56 137/63 (mmHg) O2 Sat by Pulse 96 100 100 Oximetry Oxygen Devices in Use Now: Nasal Cannula - 4L Appearance: sitting in chair, NAD Eyes: No Scleral Icterus, PERRLA Ears/Nose/Mouth/Throat: NL Teeth, Lips, Gums, Clear Oropharnyx Neck: NL Appearance and Movements; NL JVP Respiratory: Symmetrical Chest Expansion and Respiratory Effort, - - decreased BS in right base Cardiovascular: RRR, - - late peaking 2/6 GINGER Abdominal: NL Sounds; No Tenderness; No Distention, No Hepatosplenomegaly Extremities: - - 2+ LE edema Neurological: Alert and Oriented x 3 Result Diagrams: 05/14/19 04:47 05/14/19 04:47 Microbiology and Other Data: Microbiology 05/12/19 03:57 Transfusion Reaction Gram Stain - Final Blood Bag Assess/Plan/Problems-Billing Assessment: 78 yo F h/o cirrhosis with potal HTN and varices c/b chronic blood loss anemia, CHF p/w SOB found with worsening anemia and iron/PRBC transfusion, CHF exacerbation on presentation - Patient Problems (1) Anemia Comment: EGD with push enteroscopy Non bleeding gastropathy, small varices, AVMs noted 2 U PRBC prior and 3rd unit today with 1mg IV bumex chaser repeat CBC in AM Follow up with Aniket as o/p to discuss future studies to eval AVMs/bleeding and therapies (2) CHF (congestive heart failure) Comment: reduced EF (40-45%) Lasix with transfusions. She indicates she gets crmaps with lasix and requested bumex Orthopnea improving c/w home dose bumex PO (3) CKD (chronic kidney disease) Comment: worse today. Repeat in AM (4) COPD (chronic obstructive pulmonary disease) Comment: On home dose of 2L O2 that she wears intermittently - PRN Duonebs (5) DM2 (diabetes mellitus, type 2) Comment: HbA1c 7.9% Lantus increased from 40 to 43 unit 05/14 ISS (6) Dyspnea Current Visit: Yes Status: Acute Code(s): R06.00 - DYSPNEA, UNSPECIFIED SNOMED Code(s): 628536234 Comment: Chief complaint is ZAMUDIO. Multifactorial, CXR showed worsening right sided effusion. She is acutely anemic and morbidly obese Lasix. strict IO, daily weight blood transfusion with lasix in between as to not worsen the effusion/edema. (7) ONUR (obstructive sleep apnea) Comment: Non-compliant with CPAP in the past (8) DVT prophylaxis Comment: - Continue SCDs given pt at high risk for bleeding
[2019-05-14] MEDS: Terazosin CAP* 5 MG PO SCH (20:25)
[2019-05-14] MEDS ORDERED: Insulin GLARGINE(*) 1 UNITS UNIT SUBCUT SCH (21:00)
[2019-05-15 05:02] LABS: ABS Eosinophils 0.3 10^3/ul (0-0.6); ABS Monocytes 0.5 10^3/ul (0-0.8); ABS Neutrophils 3.7 10^3/ul (1.5-7.7); Eosinophil % 4.7 %; Hematocrit 25 % (35-47); Hemoglobin 8.1 g/dL (12.0-16.0); Mean Corpuscular HGB Conc 32 g/dL (31-36); Mean Corpuscular Hemoglobin 26 pg (27-31); Mean Corpuscular Volume 81 fL (80-97); Mean Platelet Volume 9.8 fL (7.4-10.4); Nucleated Red Blood Cells % 0.5; Platelet Count 113 10^3/uL (150-450); Red Cell Distribution Width 18 % (10-15); White Blood Count 5.5 10^3/uL (3.5-10.8)
[2019-05-15 05:16] LABS: BUN/Creatinine Ratio 24.3 (8-20); Calcium 7.9 mg/dL (8.6-10.3); EGFR African American 45.6 (>60); EGFR Non-African American 37.7 (>60); Potassium 3.8 mmol/L (3.5-5.0)
[2019-05-15] MEDS: Levothyroxine TAB* 25 MCG TAB PO SCH (05:43)
[2019-05-15] MEDS: Pantoprazole* 80 mg IN NS 80 MG/250 ML BAG IV SCH ×3 (05:49→17:15)
[2019-05-15] MEDS ORDERED: Pantoprazole* 80 mg IN NS 80 MG/250 ML BAG IV SCH (06:00)
[2019-05-15] MEDS: Insulin LISPRO* 1 UNITS UNIT SUBCUT SCH ×4 (07:54→21:23)
[2019-05-15] MEDS: SPIRIVA Respimat* (tiotropium) 2.5 mcg/inh Inhaler INH SCH (07:56)
[2019-05-15] MEDS: Spironolactone TAB* 25 MG PO SCH ×2 (08:22→21:23)
[2019-05-15] MEDS: Losartan TAB* 25 MG PO SCH (08:22)
[2019-05-15] MEDS: Bumetanide TAB* 2 MG PO SCH (08:23)
[2019-05-15] MEDS: Atorvastatin* 10 MG TAB PO SCH (08:23)
[2019-05-15] MEDS: Carvedilol TAB* 25 MG PO SCH ×2 (08:23→21:22)
--- NOTE | 2019-05-15 16:12 | PN ---
Subjective Date of Service: 05/15/19 Interval History: patient reports she is doing better as when compared to admission. Remains on protonix drip. s/p pRBC yesterday. no active bleed. Past Medical History: Unchanged from Admission Objective Active Medications: Acetaminophen (Tylenol Tab*) 650 mg PO Q4H PRN PRN Reason: MILD PAIN or TEMP > 100.4 Albuterol (Ventolin 2.5 Mg/3 Ml Neb.Rachel*) 2.5 mg INH [id number] AWAKE PRN PRN Reason: sob/wheezing Atorvastatin Calcium (Lipitor*) 10 mg PO DAILY [facility] Last Admin: 05/15/19 08:23 Dose: 10 mg Bumetanide (Bumex Tab*) 2 mg PO DAILY [facility] Last Admin: 05/15/19 08:23 Dose: 2 mg Bumetanide (Bumex Tab*) 1 mg PO 1700 [facility] Carvedilol (Coreg Tab*) 25 mg PO BID [facility] Last Admin: 05/15/19 08:23 Dose: 25 mg Pantoprazole Sodium (Protonix Iv Bag*) 80 mg in 250 mls @ 25 mls/hr IV Q10H [facility] Last Admin: 05/15/19 05:57 Dose: 25 mls/hr Insulin Glargine (Lantus(*)) 43 units SUBCUT BEDTIME [facility] Last Admin: 05/14/19 20:21 Dose: 43 units Insulin Human Lispro (Humalog*) 0 units SUBCUT ACHS [facility]; Protocol Last Admin: 05/15/19 11:54 Dose: 6 units Levothyroxine Sodium (Synthroid Tab*) 25 mcg PO DAILY@0600 [facility] Last Admin: 05/15/19 05:43 Dose: 25 mcg Losartan Potassium (Cozaar Tab*) 50 mg PO DAILY [facility] Last Admin: 05/15/19 08:22 Dose: 50 mg Nitroglycerin (Nitroglycerin Tab 0.3 Mg*) 0.3 mg SL Q5M PRN PRN Reason: ANGINA Oxycodone HCl (Roxycodone Tab*) 5 mg PO Q6H PRN PRN Reason: PAIN Spironolactone (Aldactone Tab*) 50 mg PO BID [facility] Last Admin: 05/15/19 08:22 Dose: 50 mg Terazosin HCl (Hytrin Cap*) 10 mg PO BEDTIME [facility] Last Admin: 05/14/19 20:25 Dose: 10 mg Throat Lozenges (Chloraseptic Afshan*) 1 afshan PO Q2H PRN PRN Reason: SORE THROAT Last Admin: 05/13/19 21:36 Dose: 1 afshan Tiotropium [place] (Spiriva Respimat 2.5 Mcg) 2 puff INH DAILY [facility] Last Admin: 05/15/19 07:56 Dose: 2 puff Vital Signs - 8 hr 05/15/19 05/15/19 08:08 11:15 Temperature 98.5 F 97.5 F Pulse Rate 62 61 Respiratory 20 20 Rate Blood Pressure 133/56 124/40 (mmHg) O2 Sat by Pulse 100 100 Oximetry Oxygen Devices in Use Now: Nasal Cannula Appearance: awake, alert. no distress Eyes: No Scleral Icterus Ears/Nose/Mouth/Throat: NL Teeth, Lips, Gums, Mucous Membranes Moist Neck: NL Appearance and Movements; NL JVP Respiratory: Symmetrical Chest Expansion and Respiratory Effort, Clear to Auscultation Cardiovascular: NL Sounds; No Murmurs; No JVD, - - + 2 Lymphaedema Abdominal: - - obese, ascites +BS Result Diagrams: 05/15/19 04:31 05/15/19 04:31 Microbiology and Other Data: Microbiology 05/12/19 03:57 Transfusion Reaction Gram Stain - Final Blood Bag Assess/Plan/Problems-Billing Assessment: 78 yo F h/o cirrhosis with potal HTN and varices c/b chronic blood loss anemia, CHF p/w SOB found with worsening anemia and iron/PRBC transfusion, CHF exacerbation on presentation - Patient Problems (1) Anemia Current Visit: Yes Status: Acute Code(s): D64.9 - ANEMIA, UNSPECIFIED SNOMED Code(s): 568766369 Comment: - admitted at 6.6 - s/p EGD with push enteroscopy revealed Non bleeding gastropathy, small varices , AVMs noted - s/p 3 U PRBC total. - H/H 02/18 today. will recheck CBC in AM if remain stable will consider discharge in am and Follow up with Aniket as o/p to discuss future studies to eval AVMs/bleeding and therapies (2) GI bleed Current Visit: Yes Status: Acute Code(s): K92.2 - GASTROINTESTINAL HEMORRHAGE, UNSPECIFIED SNOMED Code(s): 42594530 Comment: - h/o multiple bleeding AVMs, S/P EGD - will d/c PPI drip in am - H/o Varices and Liver Cirrhosis as well plays a role - s/p 3 units pRBC (3) CHF (congestive heart failure) Current Visit: Yes Status: Acute Code(s): I50.9 - HEART FAILURE, UNSPECIFIED SNOMED Code(s): 58342380 Comment: - Echo 04/19/2019 reveals reduced EF (40-45%) - s/p bumex with transfusions. I advised patient to accept increase bumex to 2 mg in am and 1 mg in pm. She states at one time Provider took her off the pm bumex due to dehydrations. she does weight herself at home and she reports her dry weight is 205 lbs. I advised her once her weight reach 205 lbs she may stop her pm bumex. she agreed - Orthopnea improving and I think it is mainly due to her large abdomen and pannus (4) CKD (chronic kidney disease) Current Visit: Yes Status: Acute Code(s): N18.9 - CHRONIC KIDNEY DISEASE, UNSPECIFIED SNOMED Code(s): 979052577 Comment: - Expected to fluctuate given her diruetics and spironolactone (5) COPD (chronic obstructive pulmonary disease) Current Visit: Yes Status: Acute Code(s): J44.9 - CHRONIC OBSTRUCTIVE PULMONARY DISEASE, UNSPECIFIED SNOMED Code(s): 14341215 Comment: On home dose of 2L O2 that she wears intermittently - Spiriva (6) DM2 (diabetes mellitus, type 2) Current Visit: Yes Status: Acute Comment: HbA1c 7.9% Lantus increased from 40 to 43 unit 05/14, improved will increase to 46 units tonight ISS (7) Dyspnea Current Visit: Yes Status: Acute Code(s): R06.00 - DYSPNEA, UNSPECIFIED SNOMED Code(s): 737150040 Comment: - Multifactorial, g right sided effusion. anemic and morbidly obese - Diuresis. strict IO, daily weight - Improving (8) HUERTA (nonalcoholic steatohepatitis) Current Visit: No Status: Acute Code(s): K75.81 - NONALCOHOLIC STEATOHEPATITIS (HUERTA) SNOMED Code(s): 618198775 Comment: - With associated cirrhosis, minor varices noted on EGD - Continue outpatient with Dr. Marcial after discharge - Given her multiple co-morbid condition, I did approach the patient regarding palliative care consult, she declined stating she does have great supportive family and she is eagerly looking forward to her outpatient refer to [place] for further treatment. At this time the patient is not ready for palliative consult. (9) DVT prophylaxis Current Visit: Yes Status: Acute Code(s): BSF3119 - SNOMED Code(s): 008680872 Comment: - Continue SCDs given pt at high risk for bleeding
[2019-05-15] MEDS ORDERED: Bumetanide TAB* 2 MG PO SCH (17:00)
[2019-05-15] MEDS ORDERED: Insulin GLARGINE(*) 1 UNITS UNIT SUBCUT SCH (21:00)
[2019-05-15] MEDS: Terazosin CAP* 5 MG PO SCH (21:23)
[2019-05-16] MEDS: Pantoprazole* 80 mg IN NS 80 MG/250 ML BAG IV SCH (05:17)
[2019-05-16] MEDS: Levothyroxine TAB* 25 MCG TAB PO SCH (05:42)
[2019-05-16 06:41] LABS: BUN/Creatinine Ratio 27.4 (8-20); Calcium 7.7 mg/dL (8.6-10.3); EGFR African American 56.5 (>60); EGFR Non-African American 46.7 (>60); Magnesium 1.2 mg/dL (1.9-2.7); Phosphorus 3.8 mg/dL (2.5-5.0); Potassium 3.8 mmol/L (3.5-5.0)
[2019-05-16 06:47] LABS: Hematocrit 37 % (35-47); Hemoglobin 11.8 g/dL (12.0-16.0); Mean Corpuscular HGB Conc 32 g/dL (31-36); Mean Corpuscular Hemoglobin 26 pg (27-31); Mean Corpuscular Volume 82 fL (80-97); Red Blood Count 4.55 10^6 /uL (3.70-4.87); Red Cell Distribution Width 18 % (10-15); White Blood Count 3.4 10^3/uL (3.5-10.8)
[2019-05-16 07:29] LABS: Platelet Count 105 10^3/uL (150-450)
[2019-05-16 07:33] LABS: ABS Eosinophils 0.2 10^3/ul (0-0.6); Polychromasia 1+; Schistocytes 1+
[2019-05-16] MEDS ORDERED: Pantoprazole* 80 mg IN NS 80 MG/250 ML BAG IV SCH (08:00)
[2019-05-16] MEDS: SPIRIVA Respimat* (tiotropium) 2.5 mcg/inh Inhaler INH SCH (08:33)
[2019-05-16] MEDS ORDERED: Magnesium Sulfate 2 GM IV* 2 GM/50 ML BAG IVPB ONE (08:44)
[2019-05-16] MEDS: Insulin LISPRO* 1 UNITS UNIT SUBCUT SCH ×2 (09:01→12:53)
[2019-05-16] MEDS: Atorvastatin* 10 MG TAB PO SCH (09:02)
[2019-05-16] MEDS: Spironolactone TAB* 25 MG PO SCH (09:02)
[2019-05-16] MEDS: Bumetanide TAB* 2 MG PO SCH (09:02)
[2019-05-16] MEDS: Carvedilol TAB* 25 MG PO SCH (09:02)
[2019-05-16] MEDS: Losartan TAB* 25 MG PO SCH (09:02)
[2019-05-16] MEDS: Cephalexin CAP* 250 MG PO SCH ×2 (09:58→12:58)
--- NOTE | 2019-05-16 14:54 | DS ---
CC: Dr. Neena Moyer; Dr. Samir Marcial; Dr. Shyam Gardiner DISCHARGE SUMMARY: DATE OF ADMISSION: 05/12/19 DATE OF DISCHARGE: 05/16/19 PRIMARY CARE PROVIDER: Dr. Neena Moyer. FINAL DISCHARGE DIAGNOSES: 1. Gastrointestinal bleed secondary to possible gastric varices and arteriovenous malformation. 2. Anemia secondary to the upper gastrointestinal bleed. 3. Congestive heart failure, systolic, acute on chronic. 4. Chronic kidney disease. 5. Liver cirrhosis secondary to nonalcoholic steatohepatitis with ascites and lower extremity edema. 6. Chronic obstructive pulmonary disease. 7. Diabetes mellitus. HOSPITAL COURSE: The patient reported to [facility] Emergency Room on 05/12/19 with a chi ef complaint of shortness of breath with known history of CHF, liver cirrhosis, portal hypertensive g astropathy, and varices. She was noted to have significant drop in H and H with her emergency room h emoglobin was as low as 6.4 and hematocrit of 20. The patient was started on blood transfusion. Sta rted on Protonix drip. GI consultation with Dr. Shyam aGrdiner was obtained. She received total 3 uni ts of packed RBC throughout the hospital course and she underwent the upper endoscopy on 05/13/19 wit h push enteroscopy past the ligament of Treitz as well as flex sigmoidoscopy. It did show portal hyp ertensive gastropathy, which was nonbleeding. She had some esophageal varices and there was no AVM n oted. Therefore, recommendation was to transfuse as necessary and possible was suggested that she ma y have a small bowel AVM. Therefore, she was maintained on the medical floor. She was started on IV Protonix drip and transfused and her hematocrit improved from 20 up to 37 on the day of discharge. Also, she was noted to have lower extremity edema, significant weight gain from her dry weight. She tells me her dry weight is 204. Her weight was up to 238. I started her on Bumex additional dose at night and I instructed her to maintain it until she reaches her dry weight of 204 to 205 pounds. To day, her weight is down to 217 pounds. She was seen and evaluated today and she was deemed stable fo r discharge with the outlined as below. PHYSICAL EXAMINATION: Her physical exam today: Temperature 97.7, pulse 68, respiratory rate 16, sat ting 100% on room air, blood pressure 148/49. Generally, she is awake, alert, pleasant, sitting in b ed. Head and Neck: Normocephalic, atraumatic. Lungs: Good airflow bilaterally. Abdomen: Obese. Positive ascites. Extremities: +2 edema. LEAD BUSINESS SYSTEMS ANALYST: There is no motor or focal sensory deficit. DIAGNOSTIC STUDIES/LAB DATA: CBC: Multiple hemoglobin was as low as 5.9 and discharged with hemoglo bin of 11.8; hematocrit as low as 19, discharged with hematocrit of 37. Chemistry significant for so dium 132, up to 139. Creatinine was as high as 1.41 down to 1.13. Blood sugar is still fluctuating with as high as 444, is up to 350. Lactic acid 1.9. Hemoglobin A1c 7.9. Troponin 0.02. AST and AL T unremarkable and normal. An iron level 214, iron saturation 69, ferritin 22. Urinalysis was positive for pyuria with 2+ leuk esterase, 2+ wbc's, 2+ bacteria. Her blood culture wa s no growth. Her urine cultures revealed Klebsiella pneumoniae pansensitive. She was started on ora l Keflex. DISCHARGE MEDICATIONS: She was discharged on: 1. Bumex 1 mg at night in addition to her Bumex 2 mg during the day. She was instructed the 1 mg at night to utilize only on an as-needed basis to achieve a dry weight of 205. 2. Coreg 25 b.i.d., continue. 3. New prescription, Keflex 250 mg t.i.d. for 3 days. 4. Insulin as per home regimen. She takes 30 units twice a day and 35 units during breakfast, 30 un its at lunch, 30 units before supper. 5. Levothyroxine 25 mcg daily. 6. Losartan 50 mg daily, continue. 7. P.r.n. nitroglycerin. 8. Oxycodone 5 mg q.6 p.r.n. as per home regimen as needed. 9. Simvastatin 20 at bedtime. 10. Aldactone 50 mg b.i.d. 11. Terazosin 10 mg at bedtime. 12. Spiriva 1 capsule daily. 13. Albuterol as needed. 14. [place] p.r.n. 15. Vitamin B12 1000 mcg daily. 16. NPH, take 25 units at bedtime. 17. Multivitamin. 18. Omeprazole 20 b.i.d. 19. Potassium 20 mEq daily. DISCHARGE INSTRUCTIONS: 1. The patient to follow up with Dr. Marcial as scheduled in 1 to 2 days. 2. Follow up with primary care in 1 to 2 weeks as scheduled. 3. Take all medications as prescribed. Finish the antibiotic. DISCHARGE CONDITION: Stable. DISCHARGE DISPOSITION: Home. [id number]/[facility] #: [id number]
[2019-05-16 15:08] VITALS: BP 130/50
== END 2019-05-16 17:33 | disposition home or self-care (01) | DRG 377 ==
LOC: ED 20:31 → MEDTELE 23:53
PROVIDERS: ADMIT Student in an Organized Health Care Education/Training Program; ATTEND Internal Medicine
PROC: 30233N1 Transfusion of Nonautologous Red Blood Cells into Peripheral Vein, Percutaneous Approach (ICD-10-PCS; principal; 2019-05-11)
PROC: 0DJ08ZZ Inspection of Upper Intestinal Tract, Via Natural or Artificial Opening Endoscopic (ICD-10-PCS; 2019-05-13)
PROC: 0DJD8ZZ Inspection of Lower Intestinal Tract, Via Natural or Artificial Opening Endoscopic (ICD-10-PCS; 2019-05-13)
DX: K55.21 Angiodysplasia of colon with hemorrhage (principal); I85.11 Secondary esophageal varices with bleeding; I50.23 Acute on chronic systolic (congestive) heart failure; I13.0 Hypertensive heart and chronic kidney disease with heart failure and stage 1 through stage 4 chronic kidney disease, or unspecified chronic kidney disease; K76.6 Portal hypertension; I42.8 Other cardiomyopathies; D50.0 Iron deficiency anemia secondary to blood loss (chronic); I25.10 Atherosclerotic heart disease of native coronary artery without angina pectoris; E78.00 Pure hypercholesterolemia, unspecified; N18.3 Chronic kidney disease, stage 3 (moderate); E11.22 Type 2 diabetes mellitus with diabetic chronic kidney disease; K21.9 Gastro-esophageal reflux disease without esophagitis; K74.60 Unspecified cirrhosis of liver; M48.00 Spinal stenosis, site unspecified; M19.90 Unspecified osteoarthritis, unspecified site; Z96.1 Presence of intraocular lens; F41.9 Anxiety disorder, unspecified; F32.9 Major depressive disorder, single episode, unspecified; J43.9 Emphysema, unspecified; E78.5 Hyperlipidemia, unspecified; K27.9 Peptic ulcer, site unspecified, unspecified as acute or chronic, without hemorrhage or perforation; K31.89 Other diseases of stomach and duodenum; E11.65 Type 2 diabetes mellitus with hyperglycemia; G47.33 Obstructive sleep apnea (adult) (pediatric); K75.81 Nonalcoholic steatohepatitis (NASH); E66.01 Morbid (severe) obesity due to excess calories; Z68.38 Body mass index [BMI] 38.0-38.9, adult; Z88.8 Allergy status to other drugs, medicaments and biological substances; Z98.42 Cataract extraction status, left eye; Z98.41 Cataract extraction status, right eye; Z87.891 Personal history of nicotine dependence; Z91.14 Patient's other noncompliance with medication regimen; Z79.4 Long term (current) use of insulin; Z79.890 Hormone replacement therapy; Z79.899 Other long term (current) drug therapy
CPT/HCPCS: 36415; 71046; 80048; 80053; 81003; 81015; 82272; 82728; 82947; 83036; 83540; 83550; 83605; 83735; 84100; 84484; 85014; 85018; 85025; 86078; 86850; 86900; 86901; 86922; 87040; 87077; 87086; 87186; 93005; 94640; 96374; 99156; 99285; A9270-GY; G8978-GP-CK; G8979-GP-CI; J1940; J2250; J2930; J3010; J3475; J3535; P9040

== ENCOUNTER 2019-06-14 20:46 | Inpatient (IN) | payer MEDICARE, OTHER ==
--- OUTSIDE RECORDS SUMMARY | 2019-06-14 20:55 | XMS REPORT ---
:1940 Author Organization [facility] Care Team Providers Name Role Phone Unavailable Unavailable Unavailable Problems This patient has no known problems. Allergies, Adverse Reactions, Alerts Allergy Name Allergy Status Severity Reaction(s) Onset Inactive Treating Comments Type Date Date Clinician BEST Allergen Active Unknown Angioedema 2018- Candice Beam Inhibitors Group 2-13 Antivert Medication Active Unknown fatigue 2018-06 Candice Beam Name ID 2-13 Elavil Medication Active Unknown fatigue 2018-06 Candice Beam Name ID 2-13 Zithromax Medication Active Unknown lightheaded, 2018-06 Candice Beam Name ID ringing in 2-13 ears Medications Ordered Filled Start Stop Current Ordering Indication Dosage Frequency Signature Comments Components Medication Medication Date Date Medication? Clinician (SIG) Name Name No Known No Known No None None None Medications Medications For This For This Patient Patient Procedures This patient has no known procedures. Results This patient has no known results.
--- OUTSIDE RECORDS SUMMARY | 2019-06-14 20:55 | XMS REPORT ---
:1940 Author Organization [facility] Care Team Providers Name Role Phone Unavailable Unavailable Unavailable Problems Condition Condition Condition Status Onset Resolution Last Treating Comments Name Details Category Date Date Treatment Clinician Date Heart Heart Diagnosis Active 2018-06 Mahsa failure, failure, 2- Wendela unspecified unspecified Allergies, Adverse Reactions, Alerts Allergy Name Allergy Status Severity Reaction(s) Onset Inactive Treating Comments Type Date Date Clinician BEST Allergen Active Unknown Angioedema 2018-06 Candice Beam Inhibitors Group 2-13 Antivert Medication [...]
--- OUTSIDE RECORDS SUMMARY | 2019-06-14 20:55 | XMS REPORT | Continuity of Care Document ---
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 Problems Active Problems Provider Date Primary [...] D.OTereza Onset: 03/11/2018 Cirrhosis - non-alcoholic Samir Euceda [...] Use Denies Drug Use Smoking Status Reviewed: 05/18/19 Patient is a former smoked cigarettes for smoker 40 years, approximately 2 cartons per week (the last 6 years), and quit in 2001 Exercise Type/Frequency Does not exercise Allergies, Adverse Reactions, Alerts Active Allergies Reaction Severity Comments Date Captopril rash 11/02/2013 Medications Active Medications SIG Qnty Indications Ordering Date Provider Prilosec take 1 tab by 30caps Samir Prado 05/05/[address] mouth twice daily MD Aniket Cephalexin Take 1 Capsule By Unknown 250mg Capsules Mouth Three Times Daily [place] Original as needed otc Unknown 325mg Tablets [...] every Unknown 25mg day Tablets Bumetanide 1 in the am 1/2 180tabs Unknown 2mg Tablets tab in the pm - changed in hospital Terazosin HCL 1 by mouth every 90caps [...] 60tabs Unknown 500mg daily Tablets History Medications Lasix Please take one tablet 1tabs Cami Davis NP 03/09/2019 - 20mg Tablets po, in between rbc bag 05/16/2019 1 and rbc bag 2 (infusions). Humulin N 25 units once daily at 20ml Jairon Contreras MD 12/13/2018 - 100Unit/ML bedtime 03/13/2019 Suspension Immunizations Description No Information Available Vital Signs Date Vital Result Comment 05/18/2019 11:03am Height 63 inches 5'3" Weight 222.00 lb with clothes, shoes on Heart Rate 79 /min BP Systolic 171 mmHg BP Diastolic 66 mmHg O2 % BldC Oximetry 99 % on 2 liters BMI (Body Mass Index) 39.3 kg/m2 03/14/2019 2:58pm Height 63 inches 5'3" Weight 210.38 lb With shoes Heart Rate 70 /min BP Systolic Sitting 146 mmHg Lue BP Diastolic Sitting 84 mmHg Lue BP Systolic Standing 140 mmHg Lue BP Diastolic Standing 80 mmHg Lue BMI (Body Mass Index) 37.3 kg/m2 Ejection Fraction 45-50% Echo 04/21/18 Results Test Acquired Date Facility Test Result H/L Range Note Basic Metabolic 03/09/2019 [facility] Sodium 144 mmol/L Normal 135-145 [address] [place] [address] [phone] Potassium 3.9 mmol/L Normal 3.5-5.0 Chloride 108 mmol/L Normal 101-111 Co2 Carbon Dioxide 33 mmol/L High 22-32 Anion Gap 3 mmol/L Normal 2-11 Glucose 72 mg/dL Normal 70-100 Blood Urea Nitrogen 18 mg/dL Normal 6-24 Creatinine 0.75 mg/dL Normal 0.51-0.95 BUN/Creatinine Ratio 24.0 High 8-20 Calcium 8.5 mg/dL Low 8.6-10.3 Egfr Non- 74.9 >60 Egfr 90.7 >60 1 CBC Auto 03/09/2019 [facility] White Blood 6.3 10^3/uL Normal 3.5-10.[address] [place] [address] [phone] Red Blood Count 2.80 10^6/uL Low 3.70-4.87 [...] Blood Cells % 0.0 Laboratory test 03/09/2019 [facility] Ferritin 108.1 ng/mL Normal 11-307 [address] [place] [address] [phone] Type & Screen 03/09/2019 [facility] Patient O Positive [address] [place] [address] [phone] Antibody Screen NEGATIVE Laboratory test 03/09/2019 [facility] Packed Cells SEE RESULTS [address] BELO <SEE NOTE> [place] [address] [phone] Type & Screen 02/16/2019 [facility] Patient Blood O Positive [address] [place] [address] [phone] Antibody Screen NEGATIVE Laboratory test 02/16/2019 [facility] Packed Cells SEE RESULTS [address] BELO <SEE NOTE> [place] [address] [phone] 1 Because ethnic data is not always [...] 5 Kidney failure <15 (or dialysis) 2 PAIENT IS WAITING TO TALK TO DR EUCEDA AFTER RESULTS ARE COMPLETE. CALL RESULTS TO DR EUCEDA [phone] SEE RESULTS BELOW [id number] OP PC TRANSFUSED 03/09/19 1619 [id number] OP PC TRANSFUSED 03/09/19 1253 4 SOB PER EMS 5 SEE RESULTS BELOW [id number] OP PC TRANSFUSED 02/16/19 0624 [id number] OP PC TRANSFUSED 02/16/19 0345 [id number] OP PC TRANSFUSED 02/17/19 0814 Procedures Date Code Description Status 04/19/2019 30906 ECHO Transthorasic Realtime 2D W Doppler & Color Flow Completed Hosp 03/14/2019 12379 EKG Tracing & Interpretation Completed 12/27/2018 31900 Glucose Monitoring Interpetation And Report Completed 06/06/2018 [id number] Colonoscopy Completed 06/17/2016 [id number] Colonoscopy Completed 08/27/2008 [id number] Colonoscopy Completed 06/16/2004 [id number] Colonoscopy Completed Medical Devices Description No Information Available Encounters Type Date Location Provider Dx Diagnosis Office Visit 04/19/2019 [facility] Shannan Martinez, D64.9 Anemia, 8:56a Assoc,pc unspecified Hospitalists I10 Essential (primary) hypertension E11.9 Type 2 diabetes mellitus without complications Office Visit 03/14/2019 3:15p [facility] Swapnil Romero R06.02 Shortness of Of Evaporator Supervisor Brand, M.D. 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 Lj D64.9 Anemia, Assoc,SOFIA Nassar unspecified Hospitalists K92.1 Melena I50.9 Heart failure, unspecified R50.9 Fever, unspecified J44.9 Chronic obstructive pulmonary disease, unspecified E11.9 Type 2 diabetes mellitus without complications Office Visit 02/17/2019 9:09a [facility] Lj D64.9 Anemia, Assoc,SOFIA Nassar unspecified Hospitalists K92.1 Melena I50.9 Heart failure, unspecified E11.9 Type 2 diabetes mellitus without complications Office Visit 02/16/2019 [facility] Lula D64.9 Anemia, 9:08a Assoc,tong Coats NP unspecified Hospitalists D69.6 Thrombocytopenia, unspecified R06.02 Shortness of breath I25.5 Ischemic cardiomyopathy E11.9 Type 2 diabetes mellitus without complications Office Visit 01/06/2019 8:28a [facility] [place] Perry, R06.89 Other abnormalities Assoc,pc of breathing Hospitalists R06.02 Shortness of breath Office Visit 01/05/2019 8:27a 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 Davie E11.00 Type 2 diab w 9:03a Assoc,tong Akbar M.D. hyprosm w/o nonket Hospitalists hyprgly-hypros coma ([facility]) E11.65 Type 2 diabetes mellitus with hyperglycemia Z79.4 senior care (current) use of insulin J44.9 Chronic obstructive pulmonary disease, unspecified Assessments Date Code Description Provider 04/20/2019 D64.9 Anemia, unspecified Shannan Martinez MD 04/20/2019 K92.2 Gastrointestinal hemorrhage, unspecified Shannan Martinez MD 04/20/2019 I50.9 Heart failure, unspecified Shannan Martinez MD 04/20/2019 E11.40 Type 2 diabetes mellitus with diabetic Shannan Martinez MD neuropathy, unspecified 04/19/2019 D64.9 Anemia, unspecified Shannan Martinez MD 04/19/2019 I50.9 Heart failure, unspecified Izaiah Lozano, DO [facility] 04/19/2019 I10 Essential (primary) hypertension Shannan Martinez MD 04/19/2019 E11.9 Type 2 diabetes mellitus without Shannan Martinez MD complications 04/18/2019 D64.9 Anemia, unspecified Nakita Junior M.D. 04/18/2019 K92.1 Liz Junior M.D. 04/18/2019 R06.02 Shortness of breath Nakita Junior M.D. 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 WASH ATTENDANT 02/20/2019 R50.9 Fever, unspecified [facility] Sarahi, AUTOMATIC CAR WASH ATTENDANT 02/20/2019 B95.1 Streptococcus, group B, as the cause of [facility] Samara, AUTOMATIC CAR WASH ATTENDANT diseases classified elsewhere 02/20/2019 N39.0 Urinary tract infection, site not [facility] Samarao, AUTOMATIC CAR WASH ATTENDANT specified 02/19/2019 D62 Acute [facility]hemorrhagic [facility], 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 WASH ATTENDANT 02/19/2019 J96.21 Acute and chronic respiratory failure [facility] 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 WASH ATTENDANT with hypoxia 02/19/2019 K92.1 Melena Tanya Mcclain, EZEQUIEL 02/19/2019 R50.9 Fever, unspecified Tanya Tj Mcclain, 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 CAR WASH ATTENDANT 02/19/2019 J96.11 Chronic respiratory failure with hypoxia Tanyalois Mcclain, AUTOMATIC CAR WASH ATTENDANT 02/19/2019 K75.81 Nonalcoholic steatohepatitis ([place]) Tanya Spencer Sarahi , AUTOMATIC CAR WASH ATTENDANT 02/18/2019 D64.9 Anemia, unspecified [place] 02/18/2019 K92.1 [place] Vu, [place] 02/18/2019 I50.9 Heart failure, unspecified [place] 02/18/2019 R50.9 Fever, unspecified Lj [place] 02/18/2019 J44.9 Chronic obstructive pulmonary disease, [place] unspecified 02/18/2019 E11.9 Type 2 diabetes mellitus without Lj [place], [place] complications 02/17/2019 D64.9 Anemia, unspecified [place] 02/17/2019 K92.1 [place], [place] 02/17/2019 I50.9 Heart failure, unspecified Lj [place], [place] 02/17/2019 E11.9 Type 2 diabetes mellitus without Lj [place], [place] complications 02/16/2019 D64.9 Anemia, unspecified Lulaserena Coats, AUTOMATIC CAR WASH ATTENDANT 02/16/2019 D69.6 Thrombocytopenia, unspecified Lulaserena Coats, AUTOMATIC CAR WASH ATTENDANT 02/16/2019 R06.02 Shortness of breath Lula Coats, AUTOMATIC CAR WASH ATTENDANT 02/16/2019 I25.5 Ischemic cardiomyopathy Lulaserena Coats, AUTOMATIC CAR WASH ATTENDANT 02/16/2019 E11.9 Type 2 diabetes mellitus without Lula Coats, AUTOMATIC CAR WASH ATTENDANT complications 01/06/2019 R06.89 Other abnormalities of breathing [place] Perry MD 01/06/2019 R06.02 Shortness of breath [place] Perry MD 01/05/2019 R07.89 Other chest pain [place] Perry MD 01/05/2019 R06.02 Shortness of breath [place] Perry MD 12/27/2018 E11.65 Type 2 diabetes mellitus with Jairon Contreras MD hyperglycemia 12/27/2018 Z79.4 senior care (current) use of insulin Jairon Contreras MD 12/27/2018 I50.9 Heart failure, unspecified Jairon Contreras MD 12/27/2018 Z68.39 Body mass index (BMI) 39.0-39.9, adult Jairon Contreras MD 12/13/2018 E11.65 Type 2 diabetes mellitus with Jairon Contreras MD hyperglycemia 12/13/2018 Z79.4 senior care (current) use of insulin Jairon Contreras MD 12/13/2018 I50.9 Heart failure, unspecified Jairon Contreras MD 11/16/2018 E11.00 Type 2 diab w hyprosm w/o nonket Davie Akbar M.D. hyprgly-hypros coma ([facility]) 11/16/2018 E11.65 Type 2 diabetes mellitus with Davie Akbar M.D. 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 11/16/2018 J44.9 Chronic obstructive pulmonary disease, Davie Akbar M.D. unspecified Plan of Treatment No Information Available Functional Status Description No Information Available Mental Status Description No Information Available Referrals Description No Information Available
--- OUTSIDE RECORDS SUMMARY | 2019-06-14 20:55 | XMS REPORT | Continuity of Care Document ---
:1940 External Reference #:[id number] Author Name Samir Euceda MD (transmitted by agent of provider Kyra Yen) Address [address] [place] [address] Care Team Providers Name Role Phone Neena Moyer MD - Internal Care Team Information [employer] [phone] Medicine Problems Active Problems Provider Date Type 2 diabetes mellitus Stacie Lutz M.D. Onset: 02/20/2018 Note: on insulin since 2003 (at least - when referred for first screening colon on 05/27/04 taking NPH 80 / 60 U) with A1Cs over 11 fairly often to 13 Anemia Jennifer Carty D.O. Onset: 03/11/2018 Note: Hg 8.Jul - first under seven 6.27 Mar 2018 5.01 June 2018; serum iron in the 30s through Mar 2017 then up - Feb 2018 473; January 2019 728; April 2019 214 Primary cardiomyopathy Swapnil Horton M.D. Onset: 11/02/2013 Note: diastolic dysfunction CHF and HTN; in Feb 2019 Dr Horton approved one yr f/u Gastrointestinal hemorrhage Samir Euceda MD Onset: 12/01/2007 Note: had bidirectional endoscopy in 2007 and capsule in December 2007 Cirrhosis - non-alcoholic Samir Euceda MD Onset: 12/05/2014 Note: micronodular contour to liver this date; Hep B +C studies negative; variceal banding Jun 2018 Chronic obstructive lung disease Nakita Junior M.D. Onset: 05/29/2018 Note: quit smoking approx 2001 Essential hypertension Swapnil Horton M.D. Onset: 11/02/2013 Obesity Kiki Moore DO Onset: 02/21/2018 Chronic combined systolic and diastolic Rajat Damian Gonzalez MD Onset: heart failure Thrombocytopenic disorder Jennifer Carty D.O. Onset: 03/11/2018 Hypothyroidism Jennifer Carty D.O. Onset: 03/11/2018 Chronic hypoxemic respiratory failure Nakita Junior M.D. Onset: 05/29/2018 Chronic kidney disease stage 2 Nakita Junior [...] Use Denies Drug Use Smoking Status Reviewed: 06/07/19 Patient is a former smoked cigarettes for smoker 40 years, approximately 2 cartons per week (the last 6 years), and quit in 2001 Exercise Type/Frequency Does not exercise Allergies, Adverse Reactions, Alerts Active Allergies Reaction Severity Comments Date Captopril rash 11/02/2013 Furosemide leg cramps 06/07/2019 Zithromax lightheaded 06/07/2019 Elavil fatigue 06/07/2019 Epi Inhibitors angioedema Moderate per Dr Moyer note 06/07/2019 Medications Active Medications SIG Qnty Indications Ordering Date Provider Feraheme feraheme infusion 510ml Q27.33 Samir Prado 06/07/2019 510mg/17ML 510 mg intravenously MD Aniket Solution over 1 hour once Sandostatin Lar Depot im injection once a 1units Q27.33 Samir Prado 2018 month MD Aniket 30mg Kit Prilosec take 1 tab by mouth 30caps Samir Prado 05/05/2018 20mg Capsules twice daily MD YENI Euceda Slow-Mag 1 tabs by mouth Unknown 71.5-119mg every daily Tablets Albuterol Sulfate inhale 1 vial via Unknown nebulizer three 1.25mg/3ML Nebulizer times or 4 times a day as needed Humulin N Kwikpen 25 units daily Unknown 100Unit/ML Supn Humulin N 35 units at Unknown 100Unit/ML breakfast, 30 units Suspension at lunch and dinner Spiriva Handihaler take one inhalation Unknown a day 18mcg Capsules Augmentin take one capsule/tab Unknown 875-125mg every 8 hours (total Tablets of 3 per day) Cephalexin Take 1 Capsule By Unknown 250mg Mouth Three Times Capsules Daily Esme-Walker Original as needed otc Unknown 325mg Tablets Efferv Triamcinolone apply once daily Unknown Acetonide 0.1% Cream Nystatin apply to affected Unknown Powder 1-2 times daily Oxycodone HCL 1/2 tabs by mouth Unknown 5mg every 4-6 hours as Tablets needed Nitroglycerin 1 tab sub lingual as Unknown 0.3mg needed every 5 Tablets Sub minuted for chest pain max 3, then call ambulance Multivitamins 1 by mouth every day 30caps Unknown Capsules Simvastatin 1 by mouth every day 90tabs Unknown 20mg Tablets Levothyroxine Sodium 1 by mouth every day Unknown 25mcg Tablets Spironolactone 1 by mouth every day Unknown 25mg Tablets Bumetanide 1 in the am 1/2 tab 180tabs Unknown 2mg Tablets in the pm - changed in hospital Terazosin HCL 1 by mouth every day 90caps Unknown 10mg Capsules Potassium Chloride ER 1 by mouth bid 30tabs Unknown 20Meq Tablets ER Vitamin B-12 2 po qd 30tabs Unknown 500mcg Tablets Sub Iron 1 by mouth bid Unknown 325(65Fe) mg Tablets Carvedilol 1 by mouth bid 200tabs Unknown 25mg Tablets Losartan Potassium 1 po bid Unknown 50mg Tablets Metformin HCL 1 tablet twice daily 60tabs Unknown 500mg Tablets History Medications Lasix Please take one tablet 1tabs Cami Davis NP 03/09/2019 - 20mg Tablets po, in between rbc bag 05/16/2019 1 and rbc bag 2 (infusions). Humulin N 25 units once daily at 20ml Jairon Contreras MD 12/13/2018 - 100Unit/ML bedtime 03/13/2019 Suspension Immunizations Description No Information Available Vital Signs Date Vital Result Comment 06/07/2019 3:24pm Height 63 inches 5'3" Weight 223.00 lb Heart Rate 114 /min BP Systolic Sitting 170 mmHg Lue BP Diastolic Sitting 81 mmHg Lue Respiratory Rate 20 /min O2 % BldC Oximetry 98 % 2L o2 BMI (Body Mass Index) 39.5 kg/m2 05/18/2019 11:03am Height 63 inches 5'3" Weight 222.00 lb with clothes, shoes on Heart Rate 79 /min BP Systolic 171 mmHg BP Diastolic 66 mmHg O2 % BldC Oximetry 99 % on 2 liters BMI (Body Mass Index) 39.3 kg/m2 Results Test Acquired Date Facility Test Result H/L Range Note CBC Auto 05/29/2019 [facility] White Blood 6.2 10^3/uL Normal 3.5-10.[address] [place] [address] [phone] Red Blood Count 3.67 10^6/uL Low 3.70-4.87 Hemoglobin 8.9 g/dL Low 12.0-16.0 Hematocrit 29 % Low 35-47 Mean Corpuscular Volume 79 fL Low 80-97 Mean Corpuscular Hemoglobin 24 pg Low 27-31 Mean Corpuscular HGB Conc 31 g/dL Normal 31-36 Red Cell Distribution Width 19 % High 10-15 Abs Neutrophils 4.8 10^3/uL Normal 1.5-7.7 Abs Lymphocytes 0.7 10^3/uL Low 1.0-4.8 Abs Monocytes 0.4 10^3/uL Normal 0-0.8 Abs Eosinophils 0.2 10^3/uL Normal 0-0.6 Abs Basophils 0.1 10^3/uL Normal 0-0.2 Abs Nucleated RBC 0.0 10^3/uL Granulocyte % 78.4 % Lymphocyte % 10.6 % Monocyte % 6.6 % Eosinophil % 3.1 % Basophil % 1.3 % Nucleated Red Blood Cells % 0.0 Platelet Count 132 10^3/uL Low 150-450 2 Cell Morphology 05/29/2019 [facility] Microcytosis 1+ [address] [place] [address] [phone] Hypochromasia 1+ Polychromasia 2+ Anisocytosis 1+ Schistocytes 1+ Basic Metabolic 05/29/2019 [facility] Sodium 139 mmol/L Normal 135-145 Panel [address] [place] [address] [phone] Potassium 3.8 mmol/L Normal 3.5-5.0 Chloride 100 mmol/L Low 101-111 Co2 Carbon Dioxide 30 mmol/L Normal 22-32 Anion Gap 9 mmol/L Normal 2-11 Glucose 475 mg/dL High 70-100 Blood Urea Nitrogen 15 mg/dL Normal 6-24 Creatinine 0.99 mg/dL High 0.51-0.95 BUN/Creatinine Ratio 15.2 Normal 8-20 Calcium 8.6 mg/dL Normal 8.6-10.3 Egfr Non- 54.4 >60 Egfr 65.8 >60 3 Laboratory test 05/29/2019 [facility] LDH 212 U/L Normal 140- 271 4 finding [address] [place] [address] [phone] Iron & Iron Binding 05/29/2019 [facility] Iron 37 g/dL Low 50-212 Capacity [address] [place] [address] [phone] Unsaturated Iron Binding < 366 g/dL Total Iron Binding Capacity 381 g/dL 250-450 Transferrin 272 mg/dL Normal 203-362 % Iron Saturation 10 % Low 15-55 Laboratory test 05/29/2019 [facility] Ferritin 18.8 ng/mL Normal 11-307 5 finding [address] [place] [address] [phone] Haptoglobin 66 mg/dL 30 - 200 6 Basic Metabolic 03/09/2019 [facility] Sodium 144 mmol/L Normal 135-145 Panel [address] [place] [address] [phone] Potassium 3.9 mmol/L Normal 3.5-5.0 Chloride 108 mmol/L Normal 101-111 Co2 Carbon Dioxide 33 mmol/L High 22-32 Anion Gap 3 mmol/L Normal 2-11 Glucose 72 mg/dL Normal 70-100 Blood Urea Nitrogen 18 mg/dL Normal 6-24 Creatinine 0.75 mg/dL Normal 0.51-0.95 BUN/Creatinine Ratio 24.0 High 8-20 Calcium 8.5 mg/dL Low 8.6-10.3 Egfr Non- 74.9 >60 Egfr 90.7 >60 7 CBC Auto 03/09/2019 [facility] White Blood 6.3 10^3/uL Normal 3.5-10.[address] [place] [address] [phone] Red Blood Count 2.80 10^6/uL Low 3.70-4.87 [...] Blood Cells % 0.0 Laboratory test 03/09/2019 [facility] Ferritin 108.1 ng/mL Normal 11-307 [address] [place] [address] [phone] Type & Screen 03/09/2019 [facility] Patient O Positive [address] [place] [address] [phone] Antibody Screen NEGATIVE Laboratory test 03/09/2019 [facility] Packed Cells SEE RESULTS [address] BELO <SEE NOTE> [place] [address] [phone] Type & Screen 02/16/2019 [facility] Patient Blood O Positive [address] Type [place], [place] [id number] [phone] Antibody Screen NEGATIVE Laboratory test 02/16/2019 [facility] Packed Cells SEE RESULTS [address] BELO <[place] [address] NOTE> [phone] 1 [id number] 2 Platelet count confirmed by smear estimate. 3 Because ethnic data is not always readily [...] 15-29 5 Kidney failure <15 (or dialysis) 4 [id number] 5 [id number] 6 Test Performed by: [facility] [address] [place] [address] Phlebotomy Director: Lj Pichardo M.D. Ph.D.; CLIA# [id number] 7 Because ethnic data is not always [...] 5 Kidney failure <15 (or dialysis) 8 BUD IS WAITING TO TALK TO DR EUCEDA AFTER RESULTS ARE COMPLETE. CALL RESULTS TO DR EUCEDA [phone] SEE RESULTS BELOW [id number] OP PC TRANSFUSED 03/09/19 1619 [id number] OP PC TRANSFUSED 03/09/19 1253 10 SOB PER EMS 11 SEE RESULTS BELOW [id number] OP PC TRANSFUSED 02/16/19 0624 [id number] OP PC TRANSFUSED 02/16/19 0345 [id number] OP PC TRANSFUSED 02/17/19 0814 Procedures Date Code Description Status 04/19/2019 39923 ECHO Transthorasic Realtime 2D W Doppler & Color Flow Completed Hosp 03/14/2019 27550 EKG Tracing & Interpretation Completed 12/27/2018 79787 Glucose Monitoring Interpetation And Report Completed 06/06/2018 [id number] Colonoscopy Completed 06/17/2016 [id number] Colonoscopy Completed 08/27/2008 [id number] Colonoscopy Completed 06/16/2004 [id number] Colonoscopy Completed Medical Devices Description No Information Available Encounters Type Date Location Provider Dx Diagnosis Office Visit 05/18/2019 [facility] Gastroenterology Samir Prado D64.9 Anemia, 10:30a MD Aniket unspecified 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 unspecified Hospitalists I50.9 Heart failure, unspecified R06.00 Dyspnea, unspecified E11.22 Type 2 diabetes mellitus w diabetic chronic kidney disease N18.9 Chronic kidney disease, unspecified J44.9 Chronic obstructive pulmonary disease, unspecified K75.81 Nonalcoholic steatohepatitis ([place]) Office Visit 05/14/2019 9:59a [facility] Davie D64.9 Anemia, Asstong huffman M.D. unspecified Hospitalists I85.10 Secondary esophageal varices without bleeding E11.22 Type 2 diabetes mellitus w diabetic chronic kidney disease N18.9 Chronic kidney disease, unspecified I50.9 Heart failure, unspecified E66.01 Morbid (severe) obesity due to excess calories Z79.4 intermediate manager (current) use of insulin Office 05/13/2019 [facility] K92.2 Gastrointestinal Visit 9:59a tong Hough MD hemorrhage, Hospitalists unspecified N18.9 Chronic kidney disease, unspecified E11.65 Type 2 diabetes mellitus with hyperglycemia E11.22 Type 2 diabetes mellitus w diabetic chronic kidney disease Z79.4 FDC (current) use of insulin Office 05/12/2019 [facility] K92.2 Gastrointestinal Visit 6:58p tong Hough MD hemorrhage, Hospitalists unspecified I50.9 Heart failure, unspecified Z79.4 intermediate manager (current) use of insulin Office Visit 05/11/2019 9:58a [facility] Nakita Junior, I13.0 Hyp hrt & chr tong Hough M.D. kdny dis w hrt Hospitalists fail and stg 1-4/unsp chr kdny I50.9 Heart failure, unspecified R06.00 Dyspnea, unspecified E11.22 Type 2 diabetes mellitus w diabetic chronic kidney disease N18.9 Chronic kidney disease, unspecified E66.01 Morbid (severe) obesity due to excess calories Z79.4 FDC (current) use of insulin D50.9 Iron deficiency anemia, unspecified Z68.41 Body mass index (BMI) 40.0-44.9, adult Office Visit 04/20/2019 8:56a [facility] Shannan D64.9 Anemia, Assoc,tong Martinez MD unspecified Hospitalists K92.2 Gastrointestinal hemorrhage, unspecified I50.9 Heart failure, unspecified E11.40 Type 2 diabetes mellitus with diabetic neuropathy, unsp Office Visit 04/19/2019 8:56a [facility] Shannan D64.9 Anemia, Assoctong MD unspecified Hospitalists I10 Essential (primary) hypertension E11.9 Type 2 diabetes mellitus without complications [facility] D64.9 Anemia, 8:55a tong Hough M.D. unspecified Hospitalists K92.1 Melena R06.02 Shortness of breath I50.9 Heart failure, unspecified Office Visit 03/14/2019 3:15p [facility] Swapnil Romero R06.02 Shortness of [facility] Maverick Horton breath I50.30 Unspecified diastolic (congestive) heart failure I42.9 Cardiomyopathy, unspecified Office Visit 03/08/2019 [facility] Gastroenterology Samir T. D50.9 Iron deficiency 2:00p MD Aniket anemia, unspecified K75.81 Nonalcoholic steatohepatitis ([place]) I50.9 Heart failure, unspecified E11.42 Type 2 diabetes mellitus with diabetic polyneuropathy E66.9 Obesity, unspecified K76.6 Portal hypertension Office Visit 02/20/2019 [place] [address] Acute posthemorrhagic 9:10a Assoc,tong Mcclain, anemia Hospitalists HIGH SCHOOL DIRECTOR J96.21 Acute and chronic respiratory failure with hypoxia I50.9 Heart failure, unspecified R50.9 Fever, unspecified B95.1 Streptococcus, group B, causing diseases [facility]d [facility] N39.0 Urinary tract infection, site not specified Office Visit 02/19/2019 [place] [address] Acute posthemorrhagic 9:10a Assoc,tong Mcclain, anemia Hospitalists HIGH SCHOOL DIRECTOR J96.21 Acute and chronic respiratory failure with hypoxia K92.1 Melena R50.9 Fever, unspecified J96.11 Chronic respiratory failure with hypoxia K75.81 Nonalcoholic steatohepatitis ([place]) Office Visit 02/18/2019 9:09a [facility] Lj D64.9 Anemia, Assoc,SOFIA Nassar unspecified Hospitalists K92.1 Melena I50.9 Heart failure, unspecified R50.9 Fever, unspecified J44.9 Chronic obstructive pulmonary disease, unspecified E11.9 Type 2 diabetes mellitus without complications Office Visit 02/17/2019 9:09a [facility] Lj D64.9 Anemia, Assoc,SOFIA Nassar unspecified Hospitalists K92.1 Melena I50.9 Heart failure, unspecified E11.9 Type 2 diabetes mellitus without complications Office Visit 02/16/2019 [facility] Lula D64.9 Anemia, 9:08a Assoc,tong Coats NP unspecified Hospitalists D69.6 Thrombocytopenia, unspecified R06.02 Shortness of breath I25.5 Ischemic cardiomyopathy E11.9 Type 2 diabetes mellitus without complications Office Visit 01/06/2019 8:28a [facility] [place] Perry, R06.89 Other abnormalities Assoc,pc MD of breathing Hospitalists R06.02 Shortness of breath Office Visit 01/05/2019 8:27a [facility] [place] Perry MD R07.89 Other chest Assoc,pc Hospitalists pain R06.02 Shortness of breath Office Visit 12/27/2018 [facility], E11.65 Type 2 diabetes 10:40a Endocrinology of MD mellitus with Instructor Creeler hyperglycemia Z79.4 FDC (current) use of insulin I50.9 Heart failure, unspecified Z68.39 Body mass index (BMI) 39.0-39.9, adult Office Visit 12/13/2018 [facility] and Jairon Contreras, E11.65 Type 2 diabetes 10:00a Endocrinology of MD mellitus with Instructor Creeler hyperglycemia Z79.4 intermediate manager (current) use of insulin I50.9 Heart failure, unspecified Assessments Date Code Description Provider 06/07/2019 Q27.33 Arteriovenous malformation of digestive Samir Euceda MD system vessel 06/07/2019 D64.9 Anemia, unspecified Samir Euceda MD 06/07/2019 E11.649 Type 2 diabetes mellitus with Samir Euceda MD hypoglycemia without coma 06/07/2019 E66.01 Morbid (severe) obesity due to excess Samir Euceda MD calories 06/07/2019 J44.1 Chronic obstructive pulmonary disease Samir Euceda MD with (acute) exacerbation 06/07/2019 K74.60 Unspecified cirrhosis of liver Samir Euceda MD 05/18/2019 D64.9 Anemia, unspecified Samir Euceda MD 05/18/2019 Q27.33 Arteriovenous malformation of digestive Samir Euceda MD system vessel 05/18/2019 E11.649 Type 2 diabetes mellitus with Samir Euceda MD hypoglycemia without coma 05/18/2019 E66.01 Morbid (severe) obesity due to excess Samir Euceda MD calories 05/18/2019 K31.7 Polyp of stomach and duodenum Samir Euceda MD 05/18/2019 J44.1 Chronic obstructive pulmonary disease Samir Euceda MD with (acute) exacerbation 05/18/2019 K74.60 Unspecified cirrhosis of liver Samir Euceda MD 05/16/2019 K92.2 Gastrointestinal hemorrhage, unspecified Moe Villarreal M.D. 05/16/2019 D64.9 Anemia, unspecified Moe Villarreal M.D. 05/16/2019 I50.23 Acute on chronic systolic (congestive) Moe Villarreal M.D. heart failure 05/16/2019 E11.22 Type 2 diabetes mellitus with diabetic Moe Villarreal M.D. chronic kidney disease 05/16/2019 N18.9 Chronic kidney disease, unspecified Moe Villarreal M.D. 05/16/2019 J44.9 Chronic obstructive pulmonary disease, Moe Villarreal M.D. 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 05/15/2019 D64.9 Anemia, unspecified Yoli CorreaDTereza 05/15/2019 I50.9 Heart failure, unspecified Moe Villarreal M.D. 05/15/2019 R06.00 Dyspnea, unspecified Dimitrios Correa.Heather 05/15/2019 E11.22 Type 2 diabetes mellitus with diabetic Moe Villarreal M.D. chronic kidney disease 05/15/2019 N18.9 Chronic kidney disease, unspecified Meo Villarreal M.D. 05/15/2019 J44.9 Chronic obstructive pulmonary disease, Moe Villarreal M.D. unspecified 05/15/2019 K75.81 Nonalcoholic steatohepatitis ([place]) Moe Villarreal M.D. 05/14/2019 D64.9 Anemia, unspecified Davie Akbar M.D. 05/14/2019 I85.10 Secondary esophageal varices without Davie Akbar M.D. bleeding 05/14/2019 E11.22 Type 2 diabetes mellitus with diabetic Davie Akbar M.D. chronic kidney disease 05/14/2019 N18.9 Chronic kidney disease, unspecified Davie Akbar M.D. 05/14/2019 I50.9 Heart failure, unspecified Davie Akbar M.D. 05/14/2019 E66.01 Morbid (severe) obesity due to excess Davie Akbar M.D. calories 05/14/2019 Z79.4 FDC (current) use of insulin Davie Akbar M.D. 05/13/2019 K92.2 Gastrointestinal hemorrhage, unspecified Meenakshi Chavez MD 05/13/2019 N18.9 Chronic kidney disease, unspecified Meenakshi Chavez MD 05/13/2019 E11.65 Type 2 diabetes mellitus with Meenakshi Chavez MD hyperglycemia 05/13/2019 E11.22 Type 2 diabetes mellitus with diabetic Meenakshi Chavez MD chronic kidney disease 05/13/2019 Z79.4 intermediate manager (current) use of mildred Chavez MD 05/12/2019 K92.2 Gastrointestinal hemorrhage, janell Chavez MD 05/12/2019 I50.9 Heart failure, unspecified Meenakshi Chavez MD 05/12/2019 Z79.4 FDC (current) use of mildred Chavez MD 05/11/2019 I13.0 Hypertensive heart and chronic kidney Nakita Junior M.D. disease with heart failure and stage 1 through stage 4 chronic kidney disease, or unspecified chronic kidney disease 05/11/2019 I50.9 Heart failure, unspecified Nakita Junior M.D. 05/11/2019 R06.00 Dyspnea, unspecified Nakita Junior M.D. 05/11/2019 E11.22 Type 2 diabetes mellitus with diabetic Nakita Junior M.D. chronic kidney disease 05/11/2019 N18.9 Chronic kidney disease, unspecified Nakita Junior M.D. 05/11/2019 E66.01 Morbid (severe) obesity due to excess Nakita Junior M.D. calories 05/11/2019 Z79.4 intermediate manager (current) use of insulin Nakita Junior M.D. 05/11/2019 D50.9 Iron deficiency anemia, unspecified Nakita Junior M.D. 05/11/2019 Z68.41 Body mass index (BMI) 40.0-44.9, adult Nakita Junior M.D. 04/20/2019 D64.9 Anemia, unspecified Shannan Martinez MD 04/20/2019 K92.2 Gastrointestinal hemorrhage, unspecified Shannan Martinez MD 04/20/2019 I50.9 Heart failure, unspecified Shannan Martinez MD 04/20/2019 E11.40 Type 2 diabetes mellitus with diabetic Shannan Martinez MD neuropathy, unspecified 04/19/2019 D64.9 Anemia, unspecified Shannan Martinez MD 04/19/2019 I50.9 Heart failure, unspecified Izaiah Lozano, DO [facility] 04/19/2019 I10 Essential (primary) hypertension Shannan Martinez MD 04/19/2019 E11.9 Type 2 diabetes mellitus without Shannan Martinez MD complications 04/18/2019 D64.9 Anemia, unspecified Nakita Junior M.D. 04/18/2019 K92.1 Liz Nakita Junior M.D. 04/18/2019 R06.02 Shortness of breath Nakita Junior M.D. 04/18/2019 I50.9 Heart failure, unspecified Nakita Junior M.D. 03/14/2019 R06.02 Shortness of [...] 02/20/2019 D62 Acute posthemorrhagic anemia Tanya Pascualzenobia, HIGH SCHOOL DIRECTOR 02/20/2019 J96.21 Acute and chronic respiratory failure Tanya Preciadofield Mcclain HIGH SCHOOL DIRECTOR with hypoxia 02/20/2019 I50.9 Heart failure, unspecified Tanya Pascualzenobia, HIGH SCHOOL DIRECTOR 02/20/2019 R50.9 Fever, unspecified Tanya Tj Samarazenobia, HIGH SCHOOL DIRECTOR 02/20/2019 B95.1 Streptococcus, group B, as the cause of Tanya PascualEZEQUIEL fregoso diseases classified elsewhere 02/20/2019 N39.0 Urinary tract infection, site not Tanya Pascualzenobia HIGH SCHOOL DIRECTOR specified 02/19/2019 D62 Acute posthemorrhagic anemia Tanya Spencer Sarahi, EZEQUIEL 02/19/2019 J96.21 Acute and chronic respiratory failure Tanya Preciadofield Mcclain HIGH SCHOOL DIRECTOR with hypoxia 02/19/2019 K92.1 Liz Estesgama Preciadofield Mcclain, EZEQUIEL 02/19/2019 R50.9 Fever, unspecified Tanyagama Pascualzenobia, HIGH SCHOOL DIRECTOR 02/19/2019 J96.11 Chronic respiratory failure with hypoxia Tanya Spencer EZEQUIEL Mcclain 02/19/2019 K75.81 Nonalcoholic steatohepatitis ([place]) Tanya Spencer EZEQUIEL Mcclain 02/18/2019 D64.9 Anemia, unspecified Lj Vu, PA 02/18/2019 K92.1 SOFIA Briseno 02/18/2019 I50.9 Heart failure, unspecified SOFIA Bianchi 02/18/2019 R50.9 Fever, unspecified Lj Vu PA 02/18/2019 J44.9 Chronic obstructive pulmonary disease, Lj Vu PA unspecified 02/18/2019 E11.9 Type 2 diabetes mellitus without Lj Vu PA complications 02/17/2019 D64.9 Anemia, unspecified Lj Vu PA 02/17/2019 K92.1 Liz Vu PA 02/17/2019 I50.9 Heart failure, unspecified Lj Vu, PA 02/17/2019 E11.9 Type 2 diabetes mellitus without SOFIA Bianchi complications 02/16/2019 D64.9 Anemia, unspecified Lula Coats, HIGH SCHOOL DIRECTOR 02/16/2019 D69.6 Thrombocytopenia, unspecified Lula Coats, EZEQUIEL 02/16/2019 R06.02 Shortness of breath Lula Coats, EZEQUIEL 02/16/2019 I25.5 Ischemic cardiomyopathy Lula Coats NP 02/16/2019 E11.9 Type 2 diabetes mellitus without Lula Coats, EZEQUIEL complications 01/06/2019 R06.89 Other abnormalities of breathing Chapinc[place] Perry MD 01/06/2019 R06.02 Shortness of breath Chapincito Perry MD 01/05/2019 R07.89 Other chest pain Chap[place]ito Perry MD 01/05/2019 R06.02 Shortness of breath Chap[place] Perry MD 12/27/2018 E11.65 Type 2 diabetes mellitus with Jairon Contreras MD hyperglycemia 12/27/2018 Z79.4 FDC (current) use of insulin Jairon Contreras MD 12/27/2018 I50.9 Heart failure, unspecified Jairon Contreras MD 12/27/2018 Z68.39 Body mass index (BMI) 39.0-39.9, adult Jairon Contreras MD 12/13/2018 E11.65 Type 2 diabetes mellitus with Jairon Contreras MD hyperglycemia 12/13/2018 Z79.4 FDC (current) use of insulin Jairon Contreras MD 12/13/2018 I50.9 Heart failure, unspecified Jairon Contreras MD Plan of Treatment 06/07/2019 - Samir Euceda MDQ27.33 Arteriovenous malformation of digestive system vesselNew Medication:Feraheme 510 mg/17ML - feraheme infusion 510 mg intravenously over 1 hour onceSandostatin [place] 30 mg - im injection once a suyotK40.9 Anemia, ozzvizasxhpT70.649 Type 2 diabetes mellitus with hypoglycemia without comaE66.01 Morbid (severe) obesity due to excess mmfrbkitA82.1 Chronic obstructive pulmonary disease w (acute) [id number] Unspecified cirrhosis of liver Functional Status Description No Information Available Mental Status Description No Information Available Referrals Description No Information Available
--- NOTE | 2019-06-14 21:26 | ED ---
Lower Extremity - HPI Summary HPI Summary: Patient is a 78 y/o F presenting to [facility] with worsened pain to her left buttock , hip, and LLE. She reports that she was sitting on a couch earlier today, 06/14 and attempted to stand up but was not able to do so due to pain. Some SOB secondary to pain is reported as well. Movement of the LLE, left buttocks, and left hip areas aggravate her pain. Pain is characterized as a "zinging" sensation. She notes Hx of neuropathy at her RLE. She states that she has chronic numbness and tingling of this area and does not note any increased weakness, tingling, or numbness. Patient took oxycodone at 1715 and notes that she does not take her oxycodone unless she is experiencing significant pain. She notes pain was improved after taking this medication. Hx of spinal stenosis and liver cirrhosis is noted as well. Hx of back surgery is denied. Home medications and allergies are reviewed. - History of Current Complaint Chief Complaint: EDWeakness Stated Complaint: UNABLE TO AMBULATE PER EMS Time Seen by Provider: 06/14/19 20:59 Hx Obtained From: Patient Mechanism Of Injury: Other - no TANVI noted Onset of Pain: Prior to Arrival Onset/Duration: Resolved Severity Initially: Severe Pain Intensity: 0 Pain Scale Used: 0-10 Numeric Timing: Intermittent Location: Is Discrete @ - LLE, left buttocks, left hip Character Of Pain: Spasmodic - "zinging" Associated Signs And Symptoms: Positive: Other - negative - increased tingling or numbness. Negative: Weakness - increased Aggravating Factor(s): Movement Alleviating Factor(s): Other - oxycodone - Allergies/Home Medications Allergies/Adverse Reactions: Allergies Allergy/AdvReac Type Severity Reaction Status Date / Time captopril Allergy Severe Hives Verified 02/16/19 01:45 PMH/Surg Hx/FS Hx/Imm Hx Endocrine/Hematology History: Reports: Hx Blood Transfusions, Hx Diabetes, Hx Thyroid Disease, Hx Anemia - chronic iron infusions Cardiovascular History: Reports: Hx Angina, Hx Congestive Heart Failure, Hx Coronary Artery Disease, Hx Hypercholesterolemia, Hx Hypertension, Other Cardiovascular Problems/Disorders - cardiomyopathy Denies: Hx Myocardial Infarction, Hx Pacemaker/ICD, Hx Peripheral Vascular Disease Respiratory History: Reports: Hx Asthma, Hx Chronic Obstructive Pulmonary Disease (COPD), Other Respiratory Problems/Disorders - emphysema Denies: Hx Sleep Apnea GI History: Reports: Hx Cirrhosis, Hx Gastroesophageal Reflux Disease, Hx Gastrointestinal Bleed, Hx Hiatal Hernia - s/p repair, Hx Ulcer, Other GI Disorders - HELICOBACTER INFECTION History: Reports: Hx Chronic Renal Failure - Stage 3, Hx Renal Disease, Other Problems/Disorders - CKD stage 3 Musculoskeletal History: Reports: Hx Arthritis, Hx Back Problems, Other Musculoskeletal History - spinal stenosis Sensory History: Reports: Hx Cataracts - surgery with implants bilat eyes 96, Hx Contacts or Glasses - reading Denies: Hx Glaucoma, Hx Deafness, Hx Hearing Aid Opthamlomology History: Reports: Hx Cataracts - surgery with implants bilat eyes 96, Hx Contacts or Glasses - reading Denies: Hx Glaucoma Neurological History: Reports: Other Neuro Impairments/Disorders - vertigo Psychiatric History: Reports: Hx Anxiety, Hx Depression, Other Psychiatric Issues/Disorders - PT REPORTS"STRESS" AND SAYS HER MD GAVE HER A MED FOR IT, UNSURE WHAT Denies: Hx Panic Disorder - Cancer History Hx Chemotherapy: No Hx Radiation Therapy: No Hx Palliative Cancer Treatment: No - Surgical History Surgery Procedure, Year, and Place: HERNIA. HYSTERECTOMY. CATERACTS. CARPAL TUNNEL. CYSTS REMOVED FROM BILATERAL ARMPITS. RTC RT. LT FOOT SURGERY Hx Anesthesia Reactions: No - Immunization History Date of Tetanus Vaccine: > 10 yers Date of Influenza Vaccine: [id number] Infectious Disease History: No Infectious Disease History: Denies: Hx Clostridium Difficile, Hx Hepatitis, Hx Human Immunodeficiency Virus (HIV), Hx of Known/Suspected MRSA, Hx Shingles, Hx Tuberculosis, History Other Infectious Disease, Traveled Outside the [place] in Last 30 Days - Family History Known Family History: Positive: Diabetes, Other - Yes - CHF (Mother) - Social History Alcohol Use: None Hx Substance Use: No Substance Use Type: Reports: None Hx Tobacco Use: Yes Smoking Status (MU): Former Smoker Type: Cigarettes Have You Smoked in the Last Year: No Review of Systems Positive: Shortness Of Breath Musculoskeletal: Other - positive - pain at LLE, left hip, left buttocks areas Negative: Weakness - no increased weakness , Paresthesia - no increased tingling , Numbness - no increased numbness All Other Systems Reviewed And Are Negative: Yes Physical Exam - Summary Physical Exam Summary: General: Well-developed, Well-nourished, Elderly Female. No acute distress. HEENT: Normocephalic, Atraumatic. Eyes: Conjuctiva normal, PERRL. Oropharynx: Clear, mucous membranes moist, (-) exudates. Neck: Soft, FROM, (-) lymphadenopathy, (-) thyromegaly, (-) JVD. Cardiovascular: Normal sinus rhythm, (-) murmur. Lungs: Clear to auscultation bilaterally (-) wheezes, (-) rales, (-) rhonchi. Abdomen: Soft, non-tender, non-distended, (-) organomegaly, normal bowel sounds. Back: (-) CVA tenderness Extremities: 2+ BLE edema, decreased strength of lower extremities, left worse than right; there is decreased sensation to BLE; normal pulses, cap refill noted. Skin: Warm, dry, (-) rash. Neuro: Alert and oriented x3, no focal deficits. Psychiatric: Mood normal, affect normal. Triage Information Reviewed: Yes Vital Signs On Initial Exam: Initial Vitals Temp Pulse Resp BP Pulse Ox 98.3 F 109 20 199/81 99 06/14/19 20:55 06/14/19 20:55 06/14/19 20:55 06/14/19 20:55 06/14/19 20:55 Vital Signs Reviewed: Yes Procedures - Sedation Patient Received Moderate/Deep Sedation with Procedure: No Diagnostics - Vital Signs Vital Signs Temp Pulse Resp BP Pulse Ox 06/14/19 20:55 98.3 F 109 20 199/81 99 - Laboratory Result Diagrams: 06/14/19 21:59 06/15/19 06:28 Lab Statement: Any lab studies that have been ordered have been reviewed, and results considered in the medical decision making process. - Radiology CXR Radiology Interpretation Completed By: ED Physician Summary of Radiographic Findings: CXR showed no acute changes, pending official report. - CT LUMBAR SPINE CT CT Interpretation Completed By: Radiologist Summary of CT Findings: IMPRESSION: 1. Mild lumbar levoscoliosis. Multilevel degenerative lumbar disc disease and. facet disease. No significant central canal stenosis. Variable degrees of. neural foraminal narrowing secondary to the combination of a diffusely bulging. disc with some hypertrophic spurring of the endplates and degenerative facet. disease. This is most significant at the levels of L2-L3 and L3-L4. 2. Moderate amount of free fluid in the upper abdomen and pelvis. THIS REPORT WAS REVIEWED BY ED PHYSICIAN. - EKG 2220 Cardiac Rate: Tachycardia - RATE OF 107 BPM EKG Rhythm: Sinus Tachycardia Summary of EKG Findings: EKG showed sinus tachycardia with rate of 107 BPM, no STEMI. This EKG was reviewed and interpreted by ED physician. Re-Evaluation - Re-Evaluation First Eval Re-Evaluation Time: 22:40 Comment: Aware of BG of 614. Lower Extremity Course/Dx - Course Course Of Treatment: 78-year-old female presents from home by ambulance because she is unable to stand. Patient states she normally is able to ambulate with a walker. She states today when she tried to get up out of her chair she could not stand even with assistance. She states she has severe pain and weakness of her left leg. She says her sciatica is acting up. She has weakness of both lower extremities, left worse than right. Peripheral neuropathy bilaterally. Good pulses and capillary refill bilaterally. Patient has multiple chronic medical problems. Today she was found to be quite hyperglycemic. Anemic. Was given dose of regular insulin subcutaneous. Then IV. Blood sugars still quite elevated. Patient was started on insulin drip. Patient treated for radiculopathy. Lumbar spine CT demonstrates spinal stenosis, chronic. Known degenerative disc disease. Disc herniations. No severe impingement noted. 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 Referred to hospitalist for admission. - Diagnoses Provider Diagnoses: Leg weakness, Hyperglycemia, Spinal stenosis - Physician Notifications Discussed Care Of Patient With: Cassidy Roland Time Discussed With Above Provider: 03:13 Instructed by Provider To: Other - Patient's case was discussed with Dr. Roland , Dr. Roland accepts for admission Discharge ED - Sign-Out/Discharge Documenting (check all that apply): Patient Departure - admit - Discharge Plan Condition: Stable Disposition: ADMITTED TO [facility] - Billing Disposition and Condition Condition: STABLE Disposition: Admitted to [facility] - Attestation Statements Document Initiated by Scribe: Yes Documenting Scribe: ALFREDO MARLEY Provider For Whom Scribe is Documenting (Include Credential): LYNDON STEWART MD Scribe Attestation: ALFREDO Benitez, scribed for LYNDON STEWART MD on 06/15/19 at 2224. Scribe Documentation Reviewed: Yes Provider Attestation: The documentation as recorded by the scribe, ALFREDO MARLEY accurately reflects the service I personally performed and the decisions made by me, LYNDON STEWART MD Status of Vitaliy Document: Viewed
[2019-06-14] MEDS ORDERED: Ketorolac INJ* 30 MG/ML 1 ML VIAL IV PUSH ONE (22:01)
[2019-06-14 22:23] LABS: INR 1.15 (0.82-1.09)
[2019-06-14 22:30] LABS: Albumin 3.1 g/dL (3.2-5.2); Albumin/Globulin Ratio 0.8 (1-3); BUN/Creatinine Ratio 17.5 (8-20); Calcium 8.4 mg/dL (8.6-10.3); EGFR African American 62.9 (>60); Globulin 3.9 g/dL (2-4); Potassium 4.8 mmol/L (3.5-5.0); Total Bilirubin 0.6 mg/dL (0.2-1.0); Troponin I 0.02 ng/mL (<0.03)
[2019-06-14 22:37] LABS: ABS Basophils 0.1 10^3/ul (0-0.2); ABS Eosinophils 0.2 10^3/ul (0-0.6); ABS Lymphocytes 0.6 10^3/ul (1.0-4.8); ABS Monocytes 0.5 10^3/ul (0-0.8); ABS Neutrophils 4.2 10^3/ul (1.5-7.7); Eosinophil % 2.9 %; Hematocrit 23 % (35-47); Hemoglobin 7.1 g/dL (12.0-16.0); Lymphocyte % 10.3 %; Mean Corpuscular HGB Conc 31 g/dL (31-36); Mean Corpuscular Hemoglobin 24 pg (27-31); Mean Corpuscular Volume 76 fL (80-97); Mean Platelet Volume 10.1 fL (7.4-10.4); Nucleated Red Blood Cells % 0.5; Platelet Count 180 10^3/uL (150-450); Red Blood Count 2.98 10^6 /uL (3.70-4.87); Red Cell Distribution Width 20 % (10-15); White Blood Count 5.5 10^3/uL (3.5-10.8)
[2019-06-14] MEDS ORDERED: Insulin REGULAR(*) 1 UNITS UNIT SUBCUT ONE (23:05)
[2019-06-14 23:16] LABS: TSH (Thyroid Stimulating Horm) 7.46 mcIU/mL (0.34-5.60)
[2019-06-15] MEDS ORDERED: Insulin REGULAR(*) 1 UNITS UNIT IV PUSH ONE (00:51)
[2019-06-15 01:01] LABS: Troponin I 0.02 ng/mL (<0.03)
[2019-06-15] MEDS ORDERED: Insulin Infusion 100unit/100mL 100 UNITS/100 ML UNIT IV ONE (02:54)
[2019-06-15] MEDS ORDERED: NS 0.9% 1000 ML** 1,000 ML IV ONE (02:55)
[2019-06-15 04:12] LABS: Urine Appearance Cloudy; Urine Bilirubin Negative (Negative); Urine Blood 1+ (Negative); Urine Color Yellow; Urine Glucose 3+(>=500 mg/dL) (Negative); Urine Ketones Trace (Negative); Urine Nitrite Negative (Negative); Urine Protein 1+(30 mg/dL) (Negative); Urine Specific Gravity 1.022 (1.010-1.030); Urine Urobilinogen Negative (Negative)
[2019-06-15 04:14] LABS: Urine Bacteria 1+ (Absent); Urine Red Blood Cell Trace(0-2/hpf) (Absent); Urine Squamous Epithelial Cell Present (Absent); Urine White Blood Cell 3+(>20/hpf) (Absent)
[2019-06-15] MEDS ORDERED: NS 0.9% 1000 ML** 1,000 ML IV SCH (06:15)
[2019-06-15] MEDS ORDERED: Acetaminophen TAB* 325 MG PO PRN (06:15)
[2019-06-15] MEDS ORDERED: Nitroglycerin TAB 0.3 MG* 0.3 MG TAB SL PRN (06:24)
[2019-06-15] MEDS ORDERED: Cyclobenzaprine TAB* 10 MG PO PRN (06:27)
[2019-06-15] MEDS ORDERED: Insulin GLARGINE(*) 1 UNITS UNIT SUBCUT SCH ×2 (06:30→21:00)
[2019-06-15] MEDS ORDERED: traMADol TAB* 50 MG PO PRN (06:30)
--- NOTE | 2019-06-15 06:34 | ADMNOTE ---
Subjective Interval History: this is H/P 78 yo female with hx of spinal stenosis, who presented with acute leg pain. She said her pain started spontaneously last night when she attempted to stand and has been 10/10. She has parasthesias and numbness as well but she said that is actually chronic for her. She said she is unable to move her leg because of the pain. Pt is very difficult to interview and prone to agitation and anger. It was a little hard to figure out exactly what she was like at baseline in order for me to figure out what has changed. At some point she mentioned that she can barely move at home and that she is actually wheelchair bound. She needs someone to help her transfer. Her lives with her but he also is on a wheelchair and just had knee replacement surgery not too long ago. She got very angry when i asked her if she has any home health aid and demanded AMA papers. I explained to her how it is very important for me to gather this information because i truly needed to know what is different for her. She just stopped answering my questions. I asked the ED staff and apparently she was very angry when the bedside nurse started questioning her about her baseline functional capacity at home and who helps her. pt had a CT lumbar spine done in the ED which showed some spinal stenosis with disc bulging at multiple levels. Her BG was also elevated in the ED and she was on a insulin drip which is now off. Vitals stable. Family History: Unchanged from Admission Social History: Unchanged from Admission Past Medical History: Unchanged from Admission Review of Systems - Measurements Intake and Output: Intake and Output Last 24 Hours 06/12/19 06/13/19 06/14/19 06/15/19 06:59 06:59 06:59 06:59 Intake Total 1000 Balance 1000 Weight 215 lb Intake: IV Fluids 1000 - Review of Systems Constitutional Symptoms: Negative: Weight Gain, Weight Loss, Weakness, Fatigue, Fever, Night Sweats, Unexplained Falls, Other Dermatology: Negative: Normal, Rash, Skin Lesions, Cancer, Skin Lumps, Other HEENT: Negative: Normal, Change in Hearing, Vertigo, Dental Problems, Tinnitus, Sinus Problem, Other Eyes: Negative: Normal, Change in Vision, Double Vision, Eye Pain, Glaucoma, Cataract, Contacts or Glasses, Other Thyroid: Negative: Normal, Goiter, Thyroid Nodule, Cold Intolerance, Heat Intolerance , Sweatiness, Tremor, Frequent Defecation, Constipation, Palpitations, Primary Hypothyroidism, Primary Hyperthyroidism, Weight Loss, Weight Gain, Change in Skin/Hair, Change in Menstruation, Radiation Exposure, Other Pulmonary: Negative: Normal, Cough, Sputum, Hemoptysis, Wheezing, Respiratory Distress, Shortness of Breath, COPD, Asthma, Exercise Intolerance, Home Oxygen, Other Cardiology: Negative: Normal, Chest Pain, Shortness of Breath, Palpitations, Swelling of Ankles, Peripheral Vascular Dis, Edema, Faintness, Syncope, Claudication, Proximal NocturnalDyspnea, Orthopnoea, Other Gastroenterology: Negative: Normal, Abdominal Pain, Nausea, Vomiting, Anorexia, Indigestion, Difficulty Swallowing, Heartburn, Constipation, Diarrhea, Blood in Stools, Change in Bowel Habits, Haematemesis, Melena, Other Genital - Urinary: Negative: Normal, Dysuria, Hematuria, Polyuria, Nocturia, Other Musculoskeletal: Positive: Low Back Pain, Sciatica Endocrinology: Negative: Normal, Thyroid Problems, Adrenal Problems, Gonadal Problems, Family Hx Endocrine Disorders, Obesity, Diabetes Mellitus, Hyperglycemia, Hx Hypoglycemia, Diabetic Foot Ulcers, Calluses, Hirsutism, Menstrual Abnormalities , Polydipsia, Polyuria, Gonadal Problems, Gynecomastia, Pituitary disease, Other Hematologic/Lymphatic: Negative: Anemia, Easy Bruising, Hx Leukemia, Hx Lymphoma, Use of Anticoagulant, Use of Antiplatelet Drugs, Other Neurology: Negative: Normal, Headache, Migraines, Change in Vision, Diplopia, Dizziness , Change in Balancing, Change in Coordination, Change in Memory, Change in Speech, Change in Sphincter Function, Change in Walking, Numbness\Paresthesiae, Unexplained Weakness, Hx of Stroke\TIA, Hx of Seizures, Other Psychiatry: Negative: Normal, Depression, Anxiety, Depressed Mood, Anhedonia, Sexual Dysfunction, Weight Change, Guilt Feelings, Tearfulness, Unusual Fatigue, Unusual Anxiety, Suicidal Ideation, Hypomania, Eating Disorders, Other Objective Active Medications: Acetaminophen (Tylenol Tab*) 650 mg PO Q4H PRN PRN Reason: PAIN - MILD Albuterol (Ventolin Hfa Inhaler*) 2 puff INH Q4H PRN PRN Reason: SOB/WHEEZING Bumetanide (Bumex Tab*) 1 mg PO 1700 PRN PRN Reason: fluid retention Carvedilol (Coreg Tab*) 25 mg PO BID SATHYA Heparin Sodium (Porcine) (Heparin Vial(*)) 5,000 units SUBCUT Q8HR [facility] Insulin Human Regular (Insulin Regular Iv Infusion 1 Unit/Ml) 100 units in 100 mls @ 9.752 mls/hr IV PER RATE ONE Stop: 06/15/19 13:09 Last Admin: 06/15/19 03:50 Dose: 9.752 mls/hr Sodium Chloride (Ns 0.9% 1000 Ml) 1,000 mls @ 1,000 mls/hr IV PER RATE SATHYA Stop: 06/15/19 07:14 Insulin Glargine (Lantus(*)) 30 units SUBCUT Q24H [facility] Insulin Human Lispro (Humalog*) 0 units SUBCUT ACHS SATHYA; Protocol Levothyroxine Sodium (Synthroid Tab*) 25 mcg PO DAILY SATHYA Losartan Potassium (Cozaar Tab*) 50 mg PO DAILY [facility] Nitroglycerin (Nitroglycerin Tab 0.3 Mg*) 0.3 mg SL Q5M PRN PRN Reason: ANGINA Omeprazole (Prilosec Cap* (Nf)) 20 mg PO BID SATHYA Oxycodone HCl (Roxycodone Tab*) 5 mg PO Q6H PRN PRN Reason: PAIN Terazosin HCl (Hytrin Cap*) 10 mg PO BEDTIME SATHYA Tiotropium [place] (Spiriva Capsule (Nf)) cap INH DAILY [facility] Vital Signs - 8 hr 06/14/19 06/14/19 06/14/19 22:29 22:59 23:01 Temperature Pulse Rate 110 107 107 Respiratory 26 20 17 Rate Blood Pressure 146/79 159/83 (mmHg) O2 Sat by Pulse 100 99 99 Oximetry 06/14/19 06/14/19 06/14/19 23:30 23:39 23:59 Temperature Pulse Rate 103 103 103 Respiratory 15 21 21 Rate Blood Pressure 130/79 132/75 (mmHg) O2 Sat by Pulse 100 100 98 Oximetry 06/15/19 06/15/19 06/15/19 00:01 01:00 01:01 Temperature Pulse Rate 104 99 102 Respiratory 22 15 27 Rate Blood Pressure 142/70 (mmHg) O2 Sat by Pulse 98 99 99 Oximetry 06/15/19 06/15/19 06/15/19 01:31 02:00 02:01 Temperature Pulse Rate 101 102 Respiratory 17 15 16 Rate Blood Pressure 189/88 108/76 (mmHg) O2 Sat by Pulse 96 96 Oximetry 06/15/19 06/15/19 06/15/19 02:33 03:00 03:01 Temperature Pulse Rate 106 107 Respiratory 14 Rate Blood Pressure 172/92 171/65 (mmHg) O2 Sat by Pulse 95 100 Oximetry 06/15/19 06/15/19 06/15/19 03:20 03:30 04:00 Temperature Pulse Rate 105 105 Respiratory 18 16 Rate Blood Pressure 155/65 161/60 (mmHg) O2 Sat by Pulse 97 98 97 Oximetry 06/15/19 06/15/19 06/15/19 04:01 04:30 04:47 Temperature 99.1 F Pulse Rate 105 101 Respiratory 19 27 Rate Blood Pressure 157/65 (mmHg) O2 Sat by Pulse 98 100 Oximetry 06/15/19 06/15/19 06/15/19 05:00 05:01 05:30 Temperature Pulse Rate 103 103 101 Respiratory 26 18 25 Rate Blood Pressure 152/86 138/69 (mmHg) O2 Sat by Pulse 100 100 100 Oximetry 06/15/19 06/15/19 06:00 06:01 Temperature Pulse Rate 100 99 Respiratory 20 18 Rate Blood Pressure 140/59 (mmHg) O2 Sat by Pulse Oximetry Oxygen Devices in Use Now: Nasal Cannula Appearance: NID Ears/Nose/Mouth/Throat: NL Teeth, Lips, Gums, Mucous Membranes Moist Neck: NL Appearance and Movements; NL JVP, Trachea Midline Respiratory: Symmetrical Chest Expansion and Respiratory Effort, Clear to Auscultation, Clear to Percussion Cardiovascular: NL Sounds; No Murmurs; No JVD, - - 2+ edema Abdominal: NL Sounds; No Tenderness; No Distention Lymphatic: No Cervical Adenopathy Extremities: - Skin: No Rash or Ulcers Neurological: Alert and Oriented x 3, - - PT is unable to move her leg as she is complaining of severe pain Result Diagrams: 06/14/19 21:59 06/14/19 21:59 Assess/Plan/Problems-Billing Assessment: - Patient Problems (1) Radiculopathy due to disorder of intervertebral disc of lumbar spine Current Visit: Yes Status: Acute Code(s): M51.16 - INTERVERTEBRAL DISC DISORDERS W RADICULOPATHY, LUMBAR REGION SNOMED Code(s): 271171346243977 Comment: pt has spinal stenosis with bulging disc. Has numbness and weakness at baseline. Presenting with acute pain and has been unable to move her left lower EXT due to pain Pain meds ( tylenol, flexeril, tramadol), her home med ( oxy) and PT/OT (2) Type 2 diabetes mellitus Current Visit: No Status: Chronic Comment: uncontrolled, was on a drip in the ED that is now turned off, no acidosis. 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 (4) Obesity (BMI 30-39.9) Current Visit: No Status: Acute Code(s): E66.9 - OBESITY, UNSPECIFIED SNOMED Code(s): 508158874 (5) ONUR (obstructive sleep apnea) Current Visit: No Status: Acute Code(s): G47.33 - OBSTRUCTIVE SLEEP APNEA ( ADULT) (PEDIATRIC) SNOMED Code(s): 48798249 Comment: Non-compliant with CPAP in the past (6) Chronic combined systolic and diastolic CHF (congestive heart failure) Current Visit: No Status: Chronic Code(s): I50.42 - CHRONIC COMBINED SYSTOLIC AND DIASTOLIC HRT FAIL SNOMED Code(s): 993304759004024 Comment: Chronic, pt euvolemic EF 45% on most recent echo ( 2019) Cardiac Cath normal in 2017. cont carvedilol, losartan, simvastatin, bumex (7) COPD (chronic obstructive pulmonary disease) Current Visit: No Status: Chronic Code(s): J44.9 - CHRONIC OBSTRUCTIVE PULMONARY DISEASE, UNSPECIFIED SNOMED Code(s): 61698852 Comment: - With chronic hypoxemic resp failure - On home O2, 2L NC - No acute exacerbation noted (8) HUERTA (nonalcoholic steatohepatitis) Current Visit: No Status: Acute Code(s): K75.81 - NONALCOHOLIC STEATOHEPATITIS (HUERTA) SNOMED Code(s): 285655211 Comment: - With associated cirrhosis, minor varices noted on EGD - Continue outpatient with Dr. Marcial after discharge (9) DVT prophylaxis Current Visit: No Status: Acute Code(s): [id number] - SNOMED Code(s): 676299179 Comment: - SCDs -heparin sc (10) Full code status Current Visit: No Status: Acute Code(s): Z78.9 - OTHER SPECIFIED HEALTH STATUS SNOMED Code(s): 037674969
[2019-06-15 07:09] LABS: BUN/Creatinine Ratio 20.4 (8-20); Calcium 7.9 mg/dL (8.6-10.3); EGFR African American 66.6 (>60); Potassium 3.9 mmol/L (3.5-5.0)
[2019-06-15] MEDS: oxyCODONE TAB* 5 MG TAB PO PRN ×2 (07:26→15:40)
[2019-06-15] MEDS: SPIRIVA Respimat* (tiotropium) 2.5 mcg/inh Inhaler INH SCH (08:35)
[2019-06-15] MEDS: Levothyroxine TAB* 25 MCG TAB PO SCH (08:38)
[2019-06-15] MEDS: Carvedilol TAB* 25 MG PO SCH ×2 (08:38→21:55)
[2019-06-15] MEDS: Pantoprazole TAB * 40 MG TAB PO SCH ×2 (08:38→21:54)
[2019-06-15] MEDS ORDERED: Losartan TAB* 25 MG PO SCH (09:00)
[2019-06-15 09:07] LABS: Glucose Confirmatory 369 mg/dL (70-100)
[2019-06-15] MEDS: Insulin LISPRO* 1 UNITS UNIT SUBCUT SCH ×4 (10:54→21:49)
[2019-06-15] MEDS: Heparin VIAL(*) 5000 UNITS/ML VIAL (FIVE THOUSAND) SUBCUT SCH ×2 (12:56→21:48)
[2019-06-15] MEDS ORDERED: Furosemide IV* 10 MG/ML 10 ML VIAL (100 MG) IV SCH (13:27)
--- NOTE | 2019-06-15 13:34 | PN ---
Subjective Date of Service: 06/15/19 Interval History: Patient seen this morning. In chair having her lunch no distress. Taking po well. no fever or chills. complains of increase leg and back pain. She states she is compliant with medications and diet at home. no active bleed. . Past Medical History: Unchanged from Admission Objective Active Medications: Acetaminophen (Tylenol Tab*) 650 mg PO Q4H PRN PRN Reason: PAIN - MILD Albuterol (Ventolin Hfa Inhaler*) 2 puff INH Q4H PRN PRN Reason: SOB/WHEEZING Bumetanide (Bumex Tab*) 1 mg PO 1700 PRN PRN Reason: fluid retention Carvedilol (Coreg Tab*) 25 mg PO BID [facility] Last Admin: 06/15/19 08:38 Dose: 25 mg Cyclobenzaprine HCl (Flexeril Tab*) 10 mg PO BID PRN PRN Reason: SPASMS Last Admin: 06/15/19 06:43 Dose: 10 mg Heparin Sodium (Porcine) (Heparin Vial(*)) 5,000 units SUBCUT Q8HR [facility] Last Admin: 06/15/19 12:56 Dose: 5,000 units Insulin Glargine (Lantus(*)) 30 units SUBCUT Q24H [facility] Last Admin: 06/15/19 06:43 Dose: 30 units Insulin Human Lispro (Humalog*) 0 units SUBCUT ACHS [facility]; Protocol Last Admin: 06/15/19 12:57 Dose: 12 unit Levothyroxine Sodium (Synthroid Tab*) 25 mcg PO DAILY@0600 [facility] Last Admin: 06/15/19 08:38 Dose: 25 mcg Losartan Potassium (Cozaar Tab*) 50 mg PO DAILY [facility] Last Admin: 06/15/19 08:38 Dose: 50 mg Nitroglycerin (Nitroglycerin Tab 0.3 Mg*) 0.3 mg SL Q5M PRN PRN Reason: ANGINA Oxycodone HCl (Roxycodone Tab*) 5 mg PO Q6H PRN PRN Reason: PAIN Last Admin: 06/15/19 07:26 Dose: 5 mg Pantoprazole Sodium (Protonix Tab*) 40 mg PO BID [facility] Last Admin: 06/15/19 08:38 Dose: 40 mg Terazosin HCl (Hytrin Cap*) 10 mg PO BEDTIME [facility] Tiotropium [place] (Spiriva Respimat 2.5 Mcg) 2 puff INH DAILY SATHYA Last Admin: 06/15/19 08:35 Dose: Not Given Tramadol HCl (Ultram*) 50 mg PO Q12H PRN PRN Reason: PAIN - MODERATE Last Admin: 06/15/19 08:38 Dose: 50 mg Vital Signs - 8 hr 06/15/19 06/15/19 06/15/19 05:30 06:00 06:01 Temperature Pulse Rate 101 100 99 Respiratory 25 20 18 Rate Blood Pressure 138/69 140/59 (mmHg) O2 Sat by Pulse 100 Oximetry 06/15/19 06/15/19 06/15/19 06:30 07:00 07:01 Temperature Pulse Rate 97 93 92 Respiratory 20 20 19 Rate Blood Pressure 143/64 148/62 (mmHg) O2 Sat by Pulse 98 98 97 Oximetry 06/15/19 06/15/19 06/15/19 07:30 07:51 08:24 Temperature 98.8 F 98.0 F Pulse Rate 96 95 99 Respiratory 22 20 20 Rate Blood Pressure 146/58 146/58 150/51 (mmHg) O2 Sat by Pulse 97 98 99 Oximetry 06/15/19 06/15/19 08:38 10:54 Temperature 97.4 F Pulse Rate 81 Respiratory 20 18 Rate Blood Pressure 102/42 (mmHg) O2 Sat by Pulse 100 Oximetry Oxygen Devices in Use Now: Nasal Cannula Appearance: Obese, in chair. bilateral leg edema pitting and tender Eyes: No Scleral Icterus, - - EOMI Ears/Nose/Mouth/Throat: NL Teeth, Lips, Gums, Mucous Membranes Moist Neck: NL Appearance and Movements; NL JVP, Trachea Midline Respiratory: Symmetrical Chest Expansion and Respiratory Effort, Clear to Auscultation Cardiovascular: NL Sounds; No Murmurs; No JVD, - - +2 edema, large pannus Abdominal: NL Sounds; No Tenderness; No Distention, - - +2 edema, large pannus Obese Extremities: - - +2 edema Neurological: Alert and Oriented x 3 Result Diagrams: 06/14/19 21:59 06/15/19 06:28 Assess/Plan/Problems-Billing Assessment: 78 year old female admitted for low back and leg pain with significant fluid overload, with known history of recent hospitalization for CHF, HUERTA and GI bleed - Patient Problems (1) Anemia Current Visit: No Status: Acute Code(s): D64.9 - ANEMIA, UNSPECIFIED SNOMED Code(s): 378997925 Comment: - Admitted at 7.1 - Previously underewent EGD with push enteroscopy which revealed Non bleeding gastropathy, small varices, AVMs noted. Previous hospitalization that required up to 3 U PRBC. - When I asked her if she followed with Dr. Marcial but she has not been to [place] for possible AVM treatment PAC treatment? - Will continue to monitor and transfuse if she drops further. (2) CHF (congestive heart failure) Current Visit: No Status: Acute Code(s): I50.9 - HEART FAILURE, UNSPECIFIED SNOMED Code(s): 88472728 Comment: - Echo 04/19/2019 reveals reduced EF (40-45%) - Her dry weight suppose to be 205 lbs currently her weight is 235 lbs - I am wondering if she is complying with her diuretics. I will place her lasix 60 mg IV bid today and reassess daily. [place]respo cath ordered for strict I/O due to her body habitus - Continue carvedilol 25 mg bid, losartan 50 mg daily. (3) CKD (chronic kidney disease) Current Visit: No Status: Acute Code(s): N18.9 - CHRONIC KIDNEY DISEASE, UNSPECIFIED SNOMED Code(s): 583600996 Comment: - Expected to fluctuate given her diruetics and spironolactone (4) DM2 (diabetes mellitus, type 2) Current Visit: No Status: Acute Comment: HbA1c 7.9% I will increase Lantus from 30 to 40 units (5) GI bleed Current Visit: No Status: Acute Code(s): K92.2 - GASTROINTESTINAL HEMORRHAGE , UNSPECIFIED SNOMED Code(s): 04617408 Comment: - Previous history of GIB s/p previous transfusion in 04/2019 - S/P EGD 04/2019 - follows with Dr Marcial outpatient (6) HUERTA (nonalcoholic steatohepatitis) Current Visit: No Status: Acute Code(s): K75.81 - NONALCOHOLIC STEATOHEPATITIS (HUERTA) SNOMED Code(s): 851888980 Comment: - With associated cirrhosis, minor varices noted on EGD. She follows with Dr. Aniket (7) ONUR (obstructive sleep apnea) Current Visit: No Status: Acute Code(s): G47.33 - OBSTRUCTIVE SLEEP APNEA ( ADULT) (PEDIATRIC) SNOMED Code(s): 37046174 Comment: Non-compliant with CPAP in the past (8) Obesity (BMI 30-39.9) Current Visit: No Status: Acute Code(s): E66.9 - OBESITY, UNSPECIFIED SNOMED Code(s): 779889502 (9) COPD (chronic obstructive pulmonary disease) Current Visit: No Status: Chronic Code(s): J44.9 - CHRONIC OBSTRUCTIVE PULMONARY DISEASE, UNSPECIFIED SNOMED Code(s): 36640105 Comment: - On home O2, 2L NC - No acute exacerbation noted (10) DVT prophylaxis Current Visit: No Status: Acute Code(s): WCH7712 - SNOMED Code(s): 640241236 Comment: - on heparin sc. If H/H drops will discontinue
[2019-06-15 13:53] LABS: Magnesium 1.9 mg/dL (1.9-2.7); Phosphorus 2.4 mg/dL (2.5-5.0)
[2019-06-15 14:18] LABS: TSH (Thyroid Stimulating Horm) 6.59 mcIU/mL (0.34-5.60)
[2019-06-15 14:29] LABS: Folate 8.71 ng/mL (>3.99)
[2019-06-15] MEDS: Ferrous Gluconate TAB* 324 MG TAB PO SCH ×2 (15:40→21:55)
[2019-06-15] MEDS: Bumetanide IV* 0.25 MG/ML 4 ML VIAL SLOW PUSH SCH ×2 (15:40→21:45)
[2019-06-15] MEDS ORDERED: Bumetanide TAB* 1 MG PO PRN (17:00)
[2019-06-15 19:01] LABS: Urine Appearance Cloudy; Urine Bilirubin Negative (Negative); Urine Blood Negative (Negative); Urine Color Yellow; Urine Glucose 3+(>=500 mg/dL) (Negative); Urine Ketones Trace (Negative); Urine Nitrite Negative (Negative); Urine Protein 1+(30 mg/dL) (Negative); Urine Urobilinogen Negative (Negative)
[2019-06-15 19:05] LABS: Urine Bacteria 1+ (Absent); Urine Red Blood Cell Absent (Absent); Urine Squamous Epithelial Cell Present (Absent); Urine White Blood Cell 3+(>20/hpf) (Absent)
[2019-06-15] MEDS ORDERED: Terazosin CAP* 5 MG PO SCH (21:00)
[2019-06-16] MEDS: Levothyroxine TAB* 25 MCG TAB PO SCH (05:47)
[2019-06-16] MEDS: Heparin VIAL(*) 5000 UNITS/ML VIAL (FIVE THOUSAND) SUBCUT SCH ×2 (05:48→05:50)
[2019-06-16 07:30] LABS: BUN/Creatinine Ratio 15.1 (8-20); Calcium 7.7 mg/dL (8.6-10.3); EGFR African American 40.1 (>60); EGFR Non-African American 33.2 (>60); Magnesium 1.9 mg/dL (1.9-2.7); Phosphorus 3.2 mg/dL (2.5-5.0); Potassium 4.5 mmol/L (3.5-5.0)
[2019-06-16 07:41] LABS: Hematocrit 19 % (35-47); Hemoglobin 5.9 g/dL (12.0-16.0); Mean Corpuscular HGB Conc 31 g/dL (31-36); Mean Corpuscular Hemoglobin 23 pg (27-31); Mean Corpuscular Volume 74 fL (80-97); Mean Platelet Volume 9.3 fL (7.4-10.4); Platelet Count 142 10^3/uL (150-450); Red Blood Count 2.55 10^6 /uL (3.70-4.87); Red Cell Distribution Width 19 % (10-15); White Blood Count 4.2 10^3/uL (3.5-10.8)
[2019-06-16] MEDS: SPIRIVA Respimat* (tiotropium) 2.5 mcg/inh Inhaler INH SCH (07:52)
[2019-06-16 08:30] LABS: Polychromasia 2+
[2019-06-16 08:32] LABS: ABS Eosinophils 0.3 10^3/ul (0-0.6)
[2019-06-16] MEDS: Insulin LISPRO* 1 UNITS UNIT SUBCUT SCH ×4 (08:36→21:46)
[2019-06-16] MEDS: Carvedilol TAB* 25 MG PO SCH ×2 (08:39→21:44)
[2019-06-16] MEDS: Ferrous Gluconate TAB* 324 MG TAB PO SCH ×3 (08:39→21:44)
[2019-06-16] MEDS: Pantoprazole TAB * 40 MG TAB PO SCH ×2 (08:39→21:44)
[2019-06-16] MEDS: Bumetanide IV* 0.25 MG/ML 4 ML VIAL SLOW PUSH SCH (11:11)
[2019-06-16] MEDS ORDERED: Bumetanide IV* 0.25 MG/ML 4 ML VIAL SLOW PUSH ONE ×2 (11:46→14:58)
[2019-06-16] MEDS: Albuterol HFA INHALER* 8 gm MDI INH PRN ×2 (12:13→21:10)
--- NOTE | 2019-06-16 13:26 | PN ---
Subjective Date of Service: 06/16/19 Interval History: Patient seen today, in chair. She was doing well this morning. However; shortly after her coreg dose this morning she was hypotensive and lightheaded along with BP 100's/40's. She was place back in bed and laid flat. blood transfusion initiated and her bumex dose was held until half of the transfusion initiated and was given 0.5 mg IV instead of the full 1 mg. I did speak to Mrs. James and I discussed her code status and I explained and reinforced her clinical picture and prognosis to her. She acknowledge understanding and expressed her wishes to be DNR/DNI and does not want to be resuscitated or placed on ventilator. She did also expressed that will be talking to her and daughter in [place] to make her wishes known. Social History: Unchanged from Admission Past Medical History: Unchanged from Admission Objective Active Medications: Acetaminophen (Tylenol Tab*) 650 mg PO Q4H PRN PRN Reason: PAIN - MILD Albuterol (Ventolin Hfa Inhaler*) 2 puff INH Q4H PRN PRN Reason: SOB/WHEEZING Last Admin: 06/16/19 12:13 Dose: 2 puff Carvedilol (Coreg Tab*) 12.5 mg PO BID [facility] Cyclobenzaprine HCl (Flexeril Tab*) 10 mg PO BID PRN PRN Reason: SPASMS Last Admin: 06/15/19 06:43 Dose: 10 mg Ferrous Gluconate (Fergon Tab*) 324 mg PO TID [facility] Last Admin: 06/16/19 13:17 Dose: 324 mg Insulin Glargine (Lantus(*)) 50 units SUBCUT BEDTIME [facility] Insulin Human Lispro (Humalog*) 0 units SUBCUT ACHS [facility]; Protocol Last Admin: 06/16/19 13:16 Dose: 9 unit Levothyroxine Sodium (Synthroid Tab*) 50 mcg PO DAILY@0600 [facility] Nitroglycerin (Nitroglycerin Tab 0.3 Mg*) 0.3 mg SL Q5M PRN PRN Reason: ANGINA Oxycodone HCl (Roxycodone Tab*) 5 mg PO Q6H PRN PRN Reason: PAIN Last Admin: 06/15/19 15:40 Dose: 5 mg Pantoprazole Sodium (Protonix Tab*) 40 mg PO BID [facility] Last Admin: 06/16/19 08:39 Dose: 40 mg Tiotropium [place] (Spiriva Respimat 2.5 Mcg) 2 puff INH DAILY SATHYA Last Admin: 06/16/19 07:52 Dose: 2 puff Tramadol HCl (Ultram*) 50 mg PO Q12H PRN PRN Reason: PAIN - MODERATE Last Admin: 06/15/19 08:38 Dose: 50 mg Vital Signs - 8 hr 06/16/19 06/16/19 06/16/19 07:15 07:52 09:59 Temperature 98.7 F 98.2 F Pulse Rate 82 84 67 Respiratory 20 18 16 Rate Blood Pressure 104/37 100/35 (mmHg) O2 Sat by Pulse 94 94 97 Oximetry 06/16/19 06/16/19 10:15 11:15 Temperature 97.6 F 98.4 F Pulse Rate 72 76 Respiratory 20 20 Rate Blood Pressure 100/45 107/46 (mmHg) O2 Sat by Pulse 100 99 Oximetry Oxygen Devices in Use Now: Nasal Cannula Appearance: Awake, alert. mild cardiac distress with hypotension due to anemia Ears/Nose/Mouth/Throat: NL Teeth, Lips, Gums, Mucous Membranes Moist Neck: NL Appearance and Movements; NL JVP, Trachea Midline Respiratory: - - rales bilateral Cardiovascular: NL Sounds; No Murmurs; No JVD Abdominal: - - Obese, large abdominal pannus. obese. Positive bowel sounds Extremities: - - +3 edema bilateral Neurological: Alert and Oriented x 3 Result Diagrams: 06/16/19 07:06 06/16/19 07:06 Microbiology and Other Data: Microbiology 06/15/19 03:57 Urine Culture - Preliminary Urine Klebsiella Pneumoniae Assess/Plan/Problems-Billing Assessment: 78 year old female admitted for low back and leg pain with significant fluid overload, with known history of recent hospitalization for CHF, HUERTA and GI bleed - Patient Problems (1) Anemia Current Visit: No Status: Acute Code(s): D64.9 - ANEMIA, UNSPECIFIED SNOMED Code(s): 835998702 Comment: - Admitted at 7.1. down to 5.9 this morning and symptomatic - Previously underewent EGD with push enteroscopy which revealed Non bleeding gastropathy, small varices, NO AVMs noted. Previous hospitalization she did requires up to 3 U PRBC. - When I asked her if she followed with Dr. Marcial but she has not been to [place] for possible enteroscopy for possible Small bowel source of bleeding. - I Will transfuse carefully given her soft BP and volume overload at baseline. Consulted GI for further evaluation as she may need transfer to [place] if she does not stablize bleeding llamas (2) CHF (congestive heart failure) Current Visit: No Status: Acute Code(s): I50.9 - HEART FAILURE, UNSPECIFIED SNOMED Code(s): 30925682 Comment: - Echo 04/19/2019 reveals reduced EF (40-45%) - Her dry weight suppose to be 205 lbs currently her weight is 235 lbs - I am wondering if she is complying with her diuretics. I did place her on bumex 1 mg bid (she can not tolerate lasix). Boggs cath ordered for strict I/O due to her body habitus. Given her soft BP I did change the bumex 0.5 mg on one to one order basis pending her BP. Will need to continue to check her BP and dose accordingly - I will decrease her carvedilol to 12.5 mg bid, I stopped her losartan 50 mg daily and hytrin at bedtime now that she has boggs. We may need to resume once the boggs is out (3) CKD (chronic kidney disease) Current Visit: No Status: Acute Code(s): N18.9 - CHRONIC KIDNEY DISEASE, UNSPECIFIED SNOMED Code(s): 775812806 Comment: - Expected to fluctuate given her diruetics (4) DM2 (diabetes mellitus, type 2) Current Visit: No Status: Acute Comment: - HbA1c 7.9% on 05/12/19 - I will increase Lantus to 50 units as per BG remain elevated (5) GI bleed Current Visit: No Status: Acute Code(s): K92.2 - GASTROINTESTINAL HEMORRHAGE , UNSPECIFIED SNOMED Code(s): 96920042 Comment: - Previous history of GIB s/p previous transfusion in 04/2019 - S/P EGD 04/2019 - follows with Dr Marcial outpatient - GI consulted again as she may need to be transferred to [facility] given her ongoing bleed and GI loss. Stool for OB ordered (6) HUERTA (nonalcoholic steatohepatitis) Current Visit: No Status: Acute Code(s): K75.81 - NONALCOHOLIC STEATOHEPATITIS (HUERTA) SNOMED Code(s): 682504728 Comment: - With associated cirrhosis, minor varices noted on EGD. She follows with Dr. Marcial (7) ONUR (obstructive sleep apnea) Current Visit: No Status: Acute Code(s): G47.33 - OBSTRUCTIVE SLEEP APNEA ( ADULT) (PEDIATRIC) SNOMED Code(s): 53530623 Comment: Non-compliant with CPAP in the past (8) Obesity (BMI 30-39.9) Current Visit: No Status: Acute Code(s): E66.9 - OBESITY, UNSPECIFIED SNOMED Code(s): 881157539 (9) COPD (chronic obstructive pulmonary disease) Current Visit: No Status: Chronic Code(s): J44.9 - CHRONIC OBSTRUCTIVE PULMONARY DISEASE, UNSPECIFIED SNOMED Code(s): 06139518 Comment: - On home O2, 2L NC - No acute exacerbation noted (10) DVT prophylaxis Current Visit: No Status: Acute Code(s): TPG6527 - SNOMED Code(s): 135873016 Comment: - OFF heparin sc given her drops in her H/H
[2019-06-16 14:16] LABS: Hematocrit 25 % (35-47); Hemoglobin 8.1 g/dL (12.0-16.0)
--- NOTE | 2019-06-16 18:47 | CONS ---
CC: Dr. Samir Marcial* CONSULTATION REPORT: DATE OF CONSULT: 06/16/19 REQUESTING PHYSICIAN: Dr. Villarreal. REASON FOR CONSULTATION: Acute blood loss anemia. HISTORY OF PRESENT ILLNESS: This is a very pleasant 78-year-old female who is known to our service with a past medical history of small-bowel chronic blood loss who initially presented to the emergency room with leg pain and weakness. She was found to have lower blood count and then they acutely dropped on admission overnight. She states that her stools always dark, has not seen any change with her chronic iron therapy from the darkness. Denies any gross hematochezia. She occasionally has some periumbilical and epigastric discomfort. Her appetite has been good. She recently saw Dr. Marcial in the outpatient setting and it was decided to err on the conservative side and monitor her blood count. She denies any nausea or vomiting. Denies any dysphagia or odynophagia. The remainder of the 14-point review of systems is grossly negative, except for as described in the HPI. PAST MEDICAL HISTORY: 1. Insulin-dependent diabetes type 2. 2. Morbid obesity. 3. Portal hypertensive gastropathy. 4. Small esophageal varices. 5. Small-bowel AVMs. 6. Peptic ulcer disease. 7. Nonischemic cardiomyopathy. 8. COPD. 9. Hypertension. 10. CKD. 11. Iron deficiency anemia. 12. Spinal stenosis. PAST SURGICAL HISTORY: 1. Hysterectomy. 2. Hernia repair. 3. Carpal tunnel release. 4. Foot surgery. 5. Rotator cuff repair. 6. Cataract. 7. Multiple upper endoscopies in the past, last being April, which was combined with flexible sigmoidoscopy without evidence of bleeding AVMs. 8. Portal hypertensive gastropathy. 9. Gastric varices. 10. She had small-bowel capsule endoscopy in 2017 with numerous AVMs in the mid jejunum and distal ileum, the predominance was in the distal ileum. MEDICATIONS: Home medications include: 1. Albuterol. 2. Calcium carbonate. 3. Carvedilol. 4. Vitamin B12. 5. Insulin. 6. Levothyroxine. 7. Losartan. 8. Multivitamin. 9. Nitroglycerin. 10. Omeprazole. 11. Oxycodone. 12. Simvastatin. 13. Spironolactone. 14. Terazosin. 15. Tiotropium. 16. Triamcinolone. 17. Bumex. 18. Potassium. ALLERGIES: Include CAPTOPRIL. FAMILY HISTORY: No family history of GI cancer or inflammatory bowel disease. SOCIAL HISTORY: Former smoker, quit in 2001. Denies any alcohol usage. REVIEW OF SYSTEMS: Remainder of the 14-point review of systems is grossly negative, except for as described in the HPI. PHYSICAL EXAMINATION: Vital Signs: Blood pressure is 115/52, pulse is 81, respiratory rate is 20, temperature is 98.2. She is 99% on 2 L. In general, alert and oriented, chronically ill appearing, but in no acute distress. HEENT : Atraumatic, normocephalic. Pupils equal, round, reactive to light. Extraocular movements are intact. Conjunctivae are pink. Sclerae anicteric. Cardiovascular: Regular rate and rhythm. S1, S2. Pulmonary: Diminished breath sounds at the bases. Abdomen: Soft. Morbidly obese. Mild tenderness to palpation in the epigastrium. Bowel sounds positive. No guarding or rebound. Psych: Appropriate mood and affect. Extremities: Edema bilaterally. LABORATORY DATA: Hemoglobin on admission 7.1; dale 5.9; post transfusion 8.1, platelet count 142. INR 1.15. BUN was 23, creatinine 1.52. ASSESSMENT AND PLAN: This is a 78-year-old female with [id number] anemia due to chronic blood loss. Anemia due to chronic blood loss. Suspect the dale of 5.9 was a false dale as given 1 unit of PRBC she is now up to 8.1. She does chronically have blood loss from the small-bowel over time from the AVMs. If her transfusion requirements keep increasing, we would recommend outpatient referral to [facility] or [place] for small-bowel enteroscopy via the primary budget engineer, Dr. Marcial. In addition, a small-bowel capsule endoscopy could be considered locally to isolate the AVMs again to give better information to the tertiary care center as desired. At this point, she is hemodynamically stable. Her hemoglobin is now 8.1. We will continue to monitor. If she has continued ongoing blood loss throughout the hospitalization , could consider inpatient transfer for small-bowel source. The previous multiple upper and lower endoscopies have not yielded significant AVM burden in the upper endoscopy or colonoscopy realms. The majority of the AVMs seem to be predominantly within the small-bowel, especially the distal ileum. At this point, we will continue conservative management. She can follow up with her outpatient budget engineer, Dr. Samir Marcial, as long as her hemoglobin remains stable. [id number]/[facility] #: [id number] MTDD
[2019-06-16 20:35] LABS: Hematocrit 25 % (35-47); Hemoglobin 8.1 g/dL (12.0-16.0)
[2019-06-16] MEDS: Insulin GLARGINE(*) 1 UNITS UNIT SUBCUT SCH (21:46)
[2019-06-17 02:13] LABS: Hematocrit 27 % (35-47); Hemoglobin 8.7 g/dL (12.0-16.0)
[2019-06-17] MEDS: Levothyroxine TAB* 50 MCG TAB PO SCH (05:37)
[2019-06-17] MEDS: Albuterol HFA INHALER* 8 gm MDI INH PRN (05:53)
[2019-06-17] MEDS ORDERED: Bumetanide IV* 0.25 MG/ML 4 ML VIAL SLOW PUSH ONE ×2 (06:45→14:34)
[2019-06-17] MEDS ORDERED: Albuterol/Ipratropium NEB.SOL* Albuterol 2.5 MG/Ipratropium 0.5 MG 3 ML INH PRN (06:47)
--- NOTE | 2019-06-17 06:57 | PN ---
Hospitalist Progress Note Pt dilan admitted with leg pain from radiculopathy. She has chronic hypoxemic respiratory failure and is on 2L at baseline at home. CAT called for bradycardia and hypoxemia. In the few hours leading to that, she had been wheezing, has prn albuterol ordered and improved the first time after a treatment. This morning she started wheezing again, had another albuterol but did not improve. Her sats then dropped and she zahra'ed. She has hx of CHF and COPD. She is at least +25 lbs and primary team has been trying to diurese her but her soft pressure was a barrier. She is DNR/DNI. Transferred to ICU for hypercarbic hypoxemic respiratory failure secondary to COPD exacerbation compounded by fluid overload. Plan is for rescue Bipap, duonebs, diuresis and steroids. NPO
[2019-06-17] MEDS: SPIRIVA Respimat* (tiotropium) 2.5 mcg/inh Inhaler INH SCH (07:51)
[2019-06-17 08:16] LABS: ABS Nucleated RBC 0.1 10^3/ul; Hematocrit 28 % (35-47); Hemoglobin 8.9 g/dL (12.0-16.0); Mean Corpuscular HGB Conc 32 g/dL (31-36); Mean Corpuscular Hemoglobin 25 pg (27-31); Mean Corpuscular Volume 78 fL (80-97); Nucleated Red Blood Cells % 1.1; Platelet Count 172 10^3/uL (150-450); Red Blood Count 3.62 10^6 /uL (3.70-4.87); Red Cell Distribution Width 20 % (10-15)
[2019-06-17 08:22] LABS: BUN/Creatinine Ratio 15.5 (8-20); Calcium 7.8 mg/dL (8.6-10.3); EGFR African American 39.2 (>60); EGFR Non-African American 32.4 (>60); Magnesium 1.8 mg/dL (1.9-2.7); Phosphorus 3.6 mg/dL (2.5-5.0); Potassium 4.7 mmol/L (3.5-5.0)
[2019-06-17] MEDS: Insulin LISPRO* 1 UNITS UNIT SUBCUT SCH ×4 (08:24→20:55)
[2019-06-17 08:57] LABS: Microcytosis 1+; Polychromasia 1+
[2019-06-17 08:58] LABS: ABS Basophils 0.1 10^3/ul (0-0.2); ABS Eosinophils 0.2 10^3/ul (0-0.6); ABS Lymphocytes 1.4 10^3/ul (1.0-4.8); ABS Monocytes 0.5 10^3/ul (0-0.8); ABS Neutrophils 3.8 10^3/ul (1.5-7.7); Eosinophil % 3.9 %; Lymphocyte % 23.6 %
[2019-06-17] MEDS: Nystatin TOP POWDER* 15 GM BTL TOPICAL SCH ×3 (10:23→20:56)
[2019-06-17] MEDS: Ferrous Gluconate TAB* 324 MG TAB PO SCH ×3 (10:36→20:54)
[2019-06-17] MEDS: Pantoprazole TAB * 40 MG TAB PO SCH ×2 (10:36→20:54)
[2019-06-17] MEDS: Carvedilol TAB* 25 MG PO SCH ×2 (10:36→20:55)
--- NOTE | 2019-06-17 14:47 | PN ---
Date of Service: 06/17/19 Critical Care Services: Patient seen and examined. Initially, patient was lethargic and on bipap when she was transferred to ICU at 0650 today. She was minimally responsive and in respiratory distress. She spent most of the morning on bipap with good result. She had received bumex 2mg IVP and has diuresed some. Bipap was discontinued about an hour ago, patient states she is feeling much improved, that she feels a little wheezy, but not acutely short of breath. She denies chest pain, no fevers or chills, no dizziness and no pain. Her is at bedside, and we did have an extensive discussion regarding her experience on the floor prior to transfer to ICU. He expressed some concerns about neb treatments and medications which we addressed effectively. Vital Signs: Temp Pulse Resp BP SpO2 FiO2 99.7 F 69 20 151/75 99 100 06/17/19 06:45 06/17/19 14:00 06/17/19 14:00 06/17/19 12:46 06/17/19 14:00 06/17 12:19 Physical Exam: Gen: Alert, NAD HEENT: PERRLA, non icteric sclera Lungs: Diminished throughout lung metz Cardiac: +S1S2, no gallups or rubs, regular rate and rhythm Abdomen: Obese, soft, non distended, +BS x4quad Extremities: no clubbing or cyanosis, +2edema bilateral LE, some wrinkling at the ankles Neuro: A&Ox3, no focal deficits Fluid Balance (Past 24 Hours): I= 1680 O= 625 Net +1025 Intake & Output 06/15/19 06/16/19 06/17/19 06/18/19 06:59 06:59 06:59 06:59 Intake Total 2017 707 0636 Output Total 475 625 680 Balance 7947 402 2121 -680 Weight 215 lb 232 lb 6.4 oz Intake: IV Fluids 1000 Oral 760 1680 Output: Boggs 475 625 680 Labs: Laboratory Results - last 24 hr 06/16/19 06/16/19 06/16/19 07:02 17:50 19:31 WBC RBC Hgb Hct MCV MCH MCHC RDW Plt Count MPV Neut % (Auto) Lymph % (Auto) [place] % (Auto) Eos % (Auto) Baso % (Auto) Absolute Neuts (auto) Absolute Lymphs (auto) Absolute Monos (auto) Absolute Eos (auto) Absolute Basos (auto) Absolute Nucleated RBC Neutrophils % Lymphocytes % Monocytes % Eosinophils % Nucleated RBC % Normal RBC Morphology Polychromasia Anisocytosis Microcytosis Patient Temperature ABG pH ABG pH (Temp Correct) ABG pCO2 ABG pCO2 (Temp Corrct ABG pO2 ABG pO2 (Temp Correct ABG HCO3 ABG O2 Saturation ABG Base Excess Respiration Rate O2 Delivery Device Ventilator Type Vent Mode FiO2 Inspiratory Time PEEP Pressure Support Pressure Control EPAP IPAP BiPAP Sodium Potassium Chloride Carbon Dioxide Anion Gap BUN Creatinine Est GFR ( Amer) Est GFR (Non-Af Amer) BUN/Creatinine Ratio Glucose POC Glucose (mg/dL) 218 H 294 H Calcium Phosphorus Magnesium Blood Type O Positive Antibody Screen Negative Crossmatch See Detail 06/16/19 06/17/19 06/17/19 20:26 01:58 06:29 WBC RBC Hgb 8.1 L 8.7 L Hct 25 L 27 L MCV MCH MCHC RDW Plt Count MPV Neut % (Auto) Lymph % (Auto) [place] % (Auto) Eos % (Auto) Baso % (Auto) Absolute Neuts (auto) Absolute Lymphs (auto) Absolute Monos (auto) Absolute Eos (auto) Absolute Basos (auto) Absolute Nucleated RBC Neutrophils % Lymphocytes % Monocytes % Eosinophils % Nucleated RBC % Normal RBC Morphology Polychromasia Anisocytosis Microcytosis Patient Temperature ABG pH ABG pH (Temp Correct) ABG pCO2 ABG pCO2 (Temp Corrct ABG pO2 ABG pO2 (Temp Correct ABG HCO3 ABG O2 Saturation ABG Base Excess Respiration Rate O2 Delivery Device Ventilator Type Vent Mode FiO2 Inspiratory Time PEEP Pressure Support Pressure Control EPAP IPAP BiPAP Sodium Potassium Chloride Carbon Dioxide Anion Gap BUN Creatinine Est GFR ( Amer) Est GFR (Non-Af Amer) BUN/Creatinine Ratio Glucose POC Glucose (mg/dL) 258 H Calcium Phosphorus Magnesium Blood Type Antibody Screen Crossmatch 06/17/19 06/17/19 06/17/19 06:33 07:58 07:58 WBC 6.0 RBC 3.62 L Hgb 8.9 L Hct 28 L MCV 78 L MCH 25 L MCHC 32 RDW 20 H Plt Count 172 MPV 10.0 Neut % (Auto) 63.2 Lymph % (Auto) 23.6 [place] % (Auto) 8.3 Eos % (Auto) 3.9 Baso % (Auto) 1.0 Absolute Neuts (auto) 3.8 Absolute Lymphs (auto) 1.4 Absolute Monos (auto) 0.5 Absolute Eos (auto) 0.2 Absolute Basos (auto) 0.1 Absolute Nucleated RBC 0.1 Neutrophils % 64.0 Lymphocytes % 24.0 Monocytes % 8.0 Eosinophils % 4.0 Nucleated RBC % 1.1 Normal RBC Morphology Not Reportable Polychromasia 1+ Anisocytosis 2+ Microcytosis 1+ Patient Temperature Not Reportable ABG pH 7.22 L ABG pH (Temp Correct) Not Reportable ABG pCO2 74 H* ABG pCO2 (Temp Corrct Not Reportable ABG pO2 65 L ABG pO2 (Temp Correct Not Reportable ABG HCO3 25.1 ABG O2 Saturation 91.7 L ABG Base Excess 0.5 Respiration Rate Not Reportable O2 Delivery Device oxymask Ventilator Type Not Reportable Vent Mode Not Reportable FiO2 Not Reportable Inspiratory Time Not Reportable PEEP Not Reportable Pressure Support Not Reportable Pressure Control Not Reportable EPAP Not Reportable IPAP Not Reportable BiPAP Not Reportable Sodium 136 Potassium 4.7 Chloride 100 L Carbon Dioxide 34 H Anion Gap 2 BUN 24 Creatinine 1.55 H Est GFR ( Amer) 39.2 Est GFR (Non-Af Amer) 32.4 BUN/Creatinine Ratio 15.5 Glucose 247 H POC Glucose (mg/dL) Calcium 7.8 L Phosphorus 3.6 Magnesium 1.8 L Blood Type Antibody Screen Crossmatch 06/17/19 06/17/19 06/17/19 08:09 10:55 12:20 WBC RBC Hgb Hct MCV MCH MCHC RDW Plt Count MPV Neut % (Auto) Lymph % (Auto) [place] % (Auto) Eos % (Auto) Baso % (Auto) Absolute Neuts (auto) Absolute Lymphs (auto) Absolute Monos (auto) Absolute Eos (auto) Absolute Basos (auto) Absolute Nucleated RBC Neutrophils % Lymphocytes % Monocytes % Eosinophils % Nucleated RBC % Normal RBC Morphology Polychromasia Anisocytosis Microcytosis Patient Temperature Not Reportable ABG pH 7.36 ABG pH (Temp Correct) Not Reportable ABG pCO2 58 H ABG pCO2 (Temp Corrct Not Reportable ABG pO2 205 H ABG pO2 (Temp Correct Not Reportable ABG HCO3 29.3 ABG O2 Saturation 99.7 H ABG Base Excess 5.6 H Respiration Rate 14 O2 Delivery Device Bipap Ventilator Type Not Reportable Vent Mode Not Reportable FiO2 100 Inspiratory Time 1.0 PEEP Not Reportable Pressure Support Not Reportable Pressure Control Not Reportable EPAP 6 IPAP 14 BiPAP Not Reportable Sodium Potassium Chloride Carbon Dioxide Anion Gap BUN Creatinine Est GFR ( Amer) Est GFR (Non-Af Amer) BUN/Creatinine Ratio Glucose POC Glucose (mg/dL) 159 H 250 H Calcium Phosphorus Magnesium Blood Type Antibody Screen Crossmatch Studies: Patient Name: TOSIN CASTRO Medical Record#: [id number] Ordering Physician: Cassidy Roland MD Acct.#: [id number] : 1940 Age: 78 Sex: F Location: [facility] UN[facility] Exam Date: 06/17/19633 ADM Status: ADM Anay Order Information: CHEST AP OR PORT Accession Number: [id number] CPT: 56735 HISTORY: CAT, no other relevant history is provided. COMPARISONS: June 14, 2019 VIEWS: 1: frontal AP view of the chest at 8:55 AM FINDINGS: LINES AND TUBES: None. CARDIOMEDIASTINAL SILHOUETTE: The cardiomediastinal silhouette is stable. PLEURA: There has been interval progression of large right pleural effusion. LUNG PARENCHYMA: There is near complete opacification of the right hemithorax. ABDOMEN: The upper abdomen is clear. There is no subphrenic gas. BONES AND SOFT TISSUES: Degenerative changes are noted. IMPRESSION: INTERVAL PROGRESSION OF THE LARGE RIGHT PLEURAL EFFUSION WITH ATELECTASIS OF THE RIGHT LUNG <Electronically signed by Bruce Mahoney MD in OV> 06/17/19 4393 Nutrition: Heart healthy, diabetic Impression: Mrs. Castro is a 78 year old female with hx of CHF, HUERTA, chronic anemia, COPD and chronic respiratory failure that was a CAT call on the floor this morning for acute respiratory distress. Diagnoses: 1. Acute on Chronic Hypoxic, Hypercarbic Respiratory Failure 2. Acute Pulmonary Edema 3. Acute on Chronic Blood Loss Anemia 2/2 Chronic GIB 4. CHF 5. CKD 6. DMII 7. HUERTA 8. COPD 9. Obesity 10. 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 - BP soft upon transfer but stable now - Tolerated 2mg bumex IVP and is diuresing, presently >20lbs fluid positive since admission; will give additional 1mg IVP now and should continue 2mg IVP daily until euvolemic - Strict I&O, boggs cath - Continue coreg at current dose 12.5mg BID - Recommend restarting spironolactone tomorrow at half dose and increase as tolerated - Optimize lytes Pulmonary - Retaining CO2 on ABG (was 74, now 58), corrected with bipap and diuresis - Progression of large right sided pleural effusion noted on CXR today ( increased from 06/14) 2/2 acute pulmonary edema - Continue diuresis until euvolemic - Off acute bipap, continue nocturnal - Continue supplemental O2 - Increase duonebs to Q4h scheduled - continue inhalers GI - Hx of HUERTA and AVMS with chronic GIB, GI following, recommendations noted; Hgb stable after 2units transfused - Outpatient follow up with Dr. Marcial and [place] for potential small bowel enteroscopy - Continue boggs Renal - Creat above her baseline while diuresing, continue to monitor while on bumex Endocrine - DM poorly controlled with BG >400 at admission, still in the high 200's - Continue lantus 50units evenings with lispro SS for BMI>30 - CC diet ID - Nystatin to skin folds Musculosekeltal - LE weakness and radiculopathy at admission likely 2/2 chronic degen disc disease - PT/OT Skin - T&P, offload, nystatin DVT Prophy - SCDs in light of anemia Code Status: DNR Critical Care Time: 65 minutes Progressing, plan for downgrade to telemetry
[2019-06-17] MEDS ORDERED: Magnesium Sulfate 2 GM IV* 2 GM/50 ML BAG IVPB ONE (15:21)
[2019-06-17] MEDS: Albuterol/Ipratropium NEB.SOL* Albuterol 2.5 MG/Ipratropium 0.5 MG 3 ML INH SCH ×3 (16:13→23:15)
[2019-06-17] MEDS: Insulin GLARGINE(*) 1 UNITS UNIT SUBCUT SCH (20:56)
[2019-06-18] MEDS: Albuterol/Ipratropium NEB.SOL* Albuterol 2.5 MG/Ipratropium 0.5 MG 3 ML INH SCH ×5 (03:25→16:44)
[2019-06-18] MEDS: Levothyroxine TAB* 50 MCG TAB PO SCH (05:20)
[2019-06-18] MEDS: SPIRIVA Respimat* (tiotropium) 2.5 mcg/inh Inhaler INH SCH (08:40)
[2019-06-18] MEDS: Ferrous Gluconate TAB* 324 MG TAB PO SCH (08:56)
[2019-06-18] MEDS: Pantoprazole TAB * 40 MG TAB PO SCH ×2 (08:56→20:27)
[2019-06-18] MEDS: Insulin LISPRO* 1 UNITS UNIT SUBCUT SCH ×4 (08:56→20:27)
[2019-06-18] MEDS: Carvedilol TAB* 25 MG PO SCH ×2 (08:56→20:27)
[2019-06-18] MEDS: Spironolactone TAB* 25 MG PO SCH (08:56)
[2019-06-18] MEDS: Nystatin TOP POWDER* 15 GM BTL TOPICAL SCH ×3 (08:57→20:27)
[2019-06-18 09:52] LABS: BUN/Creatinine Ratio 18.8 (8-20); Calcium 7.7 mg/dL (8.6-10.3); EGFR African American 54.3 (>60); EGFR Non-African American 44.9 (>60); Magnesium 1.8 mg/dL (1.9-2.7); Potassium 4.2 mmol/L (3.5-5.0)
[2019-06-18] MEDS ORDERED: Bumetanide IV* 0.25 MG/ML 4 ML VIAL SLOW PUSH SCH (10:00)
[2019-06-18] MEDS ORDERED: Magnesium Sulfate 1 GM IV* 1 GM/100 ML BAG IV ONE (13:15)
[2019-06-18] MEDS ORDERED: Bumetanide IV* 0.25 MG/ML 4 ML VIAL SLOW PUSH ONE (13:18)
--- NOTE | 2019-06-18 15:58 | PN ---
Subjective Date of Service: 06/18/19 Interval History: Transferred out of ICU yesterday, where she received BiPAP. No acute events overnight. However, this AM had an episode of respiratory distress, although she had SaO2 100%. No improvement with nebs. Her ABG showed improved pCO2 throughout the day yesterday, so BiPAP was administered and her symptoms quickly improved. She was also given Bumex IV with good UOP. Patient states she has HF after each blood transfusion. She states she comes to hospital with other complaints (this time was sciatica), and her Hgb is noted to be low, so she is transfused, and then admitted for HF exacerbation. Objective Active Medications: Acetaminophen (Tylenol Tab*) 650 mg PO Q4H PRN PRN Reason: PAIN - MILD Albuterol (Ventolin Hfa Inhaler*) 2 puff INH Q4H PRN PRN Reason: SOB/WHEEZING Last Admin: 06/17/19 05:53 Dose: 2 puff Albuterol/Ipratropium (Duoneb (Albuterol 2.5 Mg/Ipratropium 0.5 Mg)) 1 neb INH Q4H [facility] Last Admin: 06/18/19 11:47 Dose: 1 neb Bumetanide (Bumex*) 2 mg SLOW PUSH 0600 [facility] Carvedilol (Coreg Tab*) 12.5 mg PO BID [facility] Last Admin: 06/18/19 08:56 Dose: 12.5 mg Cyclobenzaprine HCl (Flexeril Tab*) 10 mg PO BID PRN PRN Reason: SPASMS Last Admin: 06/15/19 06:43 Dose: 10 mg Ferrous Gluconate (Fergon Tab*) 324 mg PO DAILY [facility] Insulin Glargine (Lantus(*)) 50 units SUBCUT BEDTIME [facility] Last Admin: 06/17/19 20:56 Dose: 50 units Insulin Human Lispro (Humalog*) 0 units SUBCUT ACHS [facility]; Protocol Last Admin: 06/18/19 12:25 Dose: 3 unit Levothyroxine Sodium (Synthroid Tab*) 50 mcg PO DAILY@0600 [facility] Last Admin: 06/18/19 05:20 Dose: 50 mcg Nitroglycerin (Nitroglycerin Tab 0.3 Mg*) 0.3 mg SL Q5M PRN PRN Reason: ANGINA Nystatin (Nystatin Top Powder*) 1 applic TOPICAL TID [facility] Last Admin: 06/18/19 13:15 Dose: 1 applic Oxycodone HCl (Roxycodone Tab*) 5 mg PO Q6H PRN PRN Reason: PAIN Last Admin: 06/15/19 15:40 Dose: 5 mg Pantoprazole Sodium (Protonix Tab*) 40 mg PO BID [facility] Last Admin: 06/18/19 08:56 Dose: 40 mg Spironolactone (Aldactone Tab*) 50 mg PO DAILY [facility] Last Admin: 06/18/19 08:56 Dose: 50 mg Tiotropium [place] (Spiriva Respimat 2.5 Mcg) 2 puff INH DAILY [facility] Last Admin: 06/18/19 08:40 Dose: Not Given Tramadol HCl (Ultram*) 50 mg PO Q12H PRN PRN Reason: PAIN - MODERATE Last Admin: 06/15/19 08:38 Dose: 50 mg Vital Signs - 8 hr 06/18/19 06/18/19 06/18/19 08:00 08:45 08:53 Temperature 97.1 F Pulse Rate 69 71 Respiratory 34 34 15 Rate Blood Pressure 146/53 (mmHg) O2 Sat by Pulse 100 98 Oximetry 06/18/19 06/18/19 10:33 12:05 Temperature 97.6 F Pulse Rate 70 Respiratory 20 18 Rate Blood Pressure 130/49 (mmHg) O2 Sat by Pulse 100 Oximetry Oxygen Devices in Use Now: Nasal Cannula Appearance: NAD, alert and interactive, speaking in full sentences Eyes: No Scleral Icterus Ears/Nose/Mouth/Throat: Clear Oropharnyx, Mucous Membranes Moist Neck: NL Appearance and Movements; NL JVP - unable to assess JVP Respiratory: - - decreased breathsounds throughout Cardiovascular: RRR Abdominal: NL Sounds; No Tenderness; No Distention - protuberant, No Hepatosplenomegaly Extremities: - - 2+ edema to knees Skin: No Rash or Ulcers Neurological: Alert and Oriented x 3 Result Diagrams: 06/17/19 07:58 06/18/19 09:21 Microbiology and Other Data: Microbiology 06/15/19 03:57 Urine Culture - Preliminary Urine Klebsiella Pneumoniae Assess/Plan/Problems-Billing Assessment: 78W with COPD and HFrEF 45% on home O2, chronic anemia from GIB, DM2, obesity, ONUR, who presented with sciatica, found with anemia requiring transfusion and volume overload. - Patient Problems (1) CHF (congestive heart failure) Comment: EF 40-45%, on last ECHO. Has exacerbations after blood transfusions. Also with possible nonadherence to outpatient meds. Dry weight 205. - continue bumex 2mg IV daily (had 2 doses today with good UOP) - continue spironolactone 50, carvedilol 12.5 bid (decreased due to low bp) - losartan held due to low BP - Strict I/O and daily weight - Optimize lytes mag>2 K>4 (2) COPD (chronic obstructive pulmonary disease) Comment: On home dose of 2L O2 that she wears intermittently. Required BiPAP this admission for Co2 retention. - continue tiotropium daily - cont nebs prn - SaO2 goal 88-92% (3) Anemia Comment: Previously underewent EGD with push enteroscopy which revealed Non bleeding gastropathy, small varices, NO AVMs noted. Previous hospitalization she did requires up to 3 U PRBC. - transfuse carefully if needed, along with IV diuretics - GI consulted and recommended to continue outpatient management - cont PPI (4) DM2 (diabetes mellitus, type 2) Comment: HbA1c 7.9% on 05/12/19 - cont lantus 50 units, increased this admission (5) CKD (chronic kidney disease) Comment: - Expected to fluctuate given her diruetics (6) ONUR (obstructive sleep apnea) Comment: Non-adherent to CPAP in the past (7) DVT prophylaxis Comment: SCDs - OFF heparin sc given her drops in her H/H (8) DNR (do not resuscitate)
[2019-06-18] MEDS ORDERED: Albuterol/Ipratropium NEB.SOL* Albuterol 2.5 MG/Ipratropium 0.5 MG 3 ML INH PRN (16:58)
[2019-06-18] MEDS: Insulin GLARGINE(*) 1 UNITS UNIT SUBCUT SCH (20:27)
[2019-06-19] MEDS: Levothyroxine TAB* 50 MCG TAB PO SCH (05:30)
[2019-06-19 05:39] LABS: BUN/Creatinine Ratio 18.5 (8-20); Calcium 7.7 mg/dL (8.6-10.3); EGFR African American 59.5 (>60); EGFR Non-African American 49.2 (>60); Magnesium 1.7 mg/dL (1.9-2.7)
[2019-06-19] MEDS ORDERED: Bumetanide IV* 0.25 MG/ML 4 ML VIAL SLOW PUSH SCH (06:00)
[2019-06-19] MEDS: SPIRIVA Respimat* (tiotropium) 2.5 mcg/inh Inhaler INH SCH (07:42)
[2019-06-19] MEDS: Insulin LISPRO* 1 UNITS UNIT SUBCUT SCH ×2 (07:48→11:31)
[2019-06-19] MEDS: Carvedilol TAB* 25 MG PO SCH (08:04)
[2019-06-19] MEDS: Pantoprazole TAB * 40 MG TAB PO SCH (08:04)
[2019-06-19] MEDS: Spironolactone TAB* 25 MG PO SCH (08:04)
[2019-06-19] MEDS: Nystatin TOP POWDER* 15 GM BTL TOPICAL SCH ×2 (08:05→13:15)
[2019-06-19] MEDS ORDERED: Magnesium Sulfate 2 GM IV* 2 GM/50 ML BAG IVPB ONE (09:00)
[2019-06-19] MEDS ORDERED: Ferrous Gluconate TAB* 324 MG TAB PO SCH (09:00)
--- NOTE | 2019-06-19 09:03 | PN ---
Subjective Date of Service: 06/19/19 Interval History: No acute overnight events. Had 2 doses of Bumex IV yesterday with good effect. Creatinine has returned to patient's baseline. She reports feeling ready to go, but is waiting on her son to be home to help her. Objective Active Medications: Acetaminophen (Tylenol Tab*) 650 mg PO Q4H PRN PRN Reason: PAIN - MILD Albuterol/Ipratropium (Duoneb (Albuterol 2.5 Mg/Ipratropium 0.5 Mg)) 1 neb INH Q4H PRN PRN Reason: sob/wheeze Last Admin: 06/19/19 07:41 Dose: 1 neb Bumetanide (Bumex*) 2 mg SLOW PUSH 0600 [facility] Last Admin: 06/19/19 05:31 Dose: 2 mg Carvedilol (Coreg Tab*) 12.5 mg PO BID [facility] Last Admin: 06/19/19 08:04 Dose: 12.5 mg Cyclobenzaprine HCl (Flexeril Tab*) 10 mg PO BID PRN PRN Reason: SPASMS Last Admin: 06/15/19 06:43 Dose: 10 mg Ferrous Gluconate (Fergon Tab*) 324 mg PO DAILY [facility] Last Admin: 06/19/19 08:04 Dose: 324 mg Insulin Glargine (Lantus(*)) 50 units SUBCUT BEDTIME [facility] Last Admin: 06/18/19 20:27 Dose: 50 units Insulin Human Lispro (Humalog*) 0 units SUBCUT ACHS [facility]; Protocol Last Admin: 06/19/19 07:48 Dose: Not Given Levothyroxine Sodium (Synthroid Tab*) 50 mcg PO DAILY@0600 [facility] Last Admin: 06/19/19 05:30 Dose: 50 mcg Nitroglycerin (Nitroglycerin Tab 0.3 Mg*) 0.3 mg SL Q5M PRN PRN Reason: ANGINA Nystatin (Nystatin Top Powder*) 1 applic TOPICAL TID [facility] Last Admin: 06/19/19 08:05 Dose: 1 applic Oxycodone HCl (Roxycodone Tab*) 5 mg PO Q6H PRN PRN Reason: PAIN Last Admin: 06/15/19 15:40 Dose: 5 mg Pantoprazole Sodium (Protonix Tab*) 40 mg PO BID [facility] Last Admin: 06/19/19 08:04 Dose: 40 mg Spironolactone (Aldactone Tab*) 50 mg PO DAILY [facility] Last Admin: 06/19/19 08:04 Dose: 50 mg Tiotropium [place] (Spiriva Respimat 2.5 Mcg) 2 puff INH DAILY [facility] Last Admin: 06/19/19 07:42 Dose: 2 puff Tramadol HCl (Ultram*) 50 mg PO Q12H PRN PRN Reason: PAIN - MODERATE Last Admin: 06/15/19 08:38 Dose: 50 mg Vital Signs - 8 hr 06/19/19 06/19/19 06/19/19 03:21 07:43 07:44 Temperature 97.8 F 98.3 F Pulse Rate 69 72 Respiratory 19 16 16 Rate Blood Pressure 147/52 148/60 (mmHg) O2 Sat by Pulse 100 100 Oximetry Oxygen Devices in Use Now: Nasal Cannula Appearance: well appearing, NAD, speaking in full sentences Eyes: No Scleral Icterus Ears/Nose/Mouth/Throat: Clear Oropharnyx, Mucous Membranes Moist Neck: NL Appearance and Movements; NL JVP, Trachea Midline Respiratory: Symmetrical Chest Expansion and Respiratory Effort, Clear to Auscultation - but diminished diffusely Cardiovascular: NL Sounds; No Murmurs; No JVD, RRR Abdominal: NL Sounds; No Tenderness; No Distention, No Hepatosplenomegaly Extremities: - - 1+ edema with diffuse wrinkling to knees b/l Skin: No Rash or Ulcers Neurological: Alert and Oriented x 3 Result Diagrams: 06/17/19 07:58 06/19/19 04:48 Microbiology and Other Data: Microbiology 06/15/19 03:57 Urine Culture - Preliminary Urine Klebsiella Pneumoniae Assess/Plan/Problems-Billing Assessment: 78W with COPD and HFrEF 45% on home O2, chronic anemia from GIB, DM2, obesity, ONUR, who presented with sciatica, found with anemia requiring transfusion and volume overload. - Patient Problems (1) CHF (congestive heart failure) Comment: EF 40-45%, on last ECHO. Has exacerbations after blood transfusions. Also with possible nonadherence to outpatient meds. Dry weight 205. - can switch back to home doses of Bumex PO - continue spironolactone 50, carvedilol 12.5 bid (decreased due to low bp) - resume losartan - strict I/O and daily weight - optimize lytes mag>2 K>4 (2) COPD (chronic obstructive pulmonary disease) Comment: On home dose of 2L O2 that she wears intermittently. Required BiPAP this admission for Co2 retention. - continue tiotropium daily - cont nebs prn - SaO2 goal 88-92% (3) Anemia Comment: Previously underewent EGD with push enteroscopy which revealed Non bleeding gastropathy, small varices, NO AVMs noted. Previous hospitalization she did requires up to 3 U PRBC. - transfuse carefully if needed, along with IV diuretics - GI consulted and recommended to continue outpatient management - cont PPI (4) DM2 (diabetes mellitus, type 2) Comment: HbA1c 7.9% on 05/12/19 - cont lantus 50 units, increased this admission (5) CKD (chronic kidney disease) Comment: - Expected to fluctuate given her diruetics (6) ONUR (obstructive sleep apnea) Comment: Pt reports history of being diagnosed with apnea but never was given CPAP machine at home. Has been using BiPAP here and enjoys using it. - discussed to f/u with PCP, may need repeat sleep study (7) DVT prophylaxis Comment: SCDs - OFF heparin sc given her drops in her H/H (8) DNR (do not resuscitate)
[2019-06-19 11:35] VITALS: BP 143/64
--- NOTE | 2019-06-20 00:28 | DS ---
CC: Dr. Neena Moyer* DISCHARGE SUMMARY: DATE OF ADMISSION: 06/15/19 DATE OF DISCHARGE: 06/19/19 PRIMARY CARE PHYSICIAN: Dr. Neena Moyer. PRIMARY DIAGNOSES: 1. Sciatica. 2. Heart failure exacerbation after blood transfusion. 3. Chronic anemia from known chronic gastrointestinal bleeds. SECONDARY DIAGNOSES: 1. Obstructive sleep apnea, not on CPAP. 2. Chronic obstructive pulmonary disease. 3. Diabetes, type 2, on insulin. 4. Morbid obesity. 5. Hypertension. 6. Chronic kidney disease. 7. Hypothyroidism. CONSULTS: Dr. Shyam Gardiner of GI. DISCHARGE MEDICATIONS: 1. Bumex 2 mg in the morning, 1 mg in the afternoon. 2. Insulin NPH 25 units at night. 3. Insulin lispro t.i.d. . 4. Spironolactone 50 mg twice a day. 5. Potassium chloride 20 mEq daily. 6. Nitroglycerin 0.3 sublingual every 5 minutes as needed for chest pain. 7. Losartan 50 mg daily. 8. Carvedilol 25 mg twice a day. 9. Oxycodone 5 mg every 6 hours as needed for pain. 10. Tiotropium 1 capsule inhaled daily. 11. Albuterol every 4 hours as needed for shortness of breath. 12. Simvastatin 20 mg daily. 13. Omeprazole 20 mg twice a day. 14. Levothyroxine 25 mcg daily. 15. Vitamin B12 1000 mcg daily. 16. Ferrous gluconate 324 mg daily. HISTORY OF PRESENT ILLNESS: Ms. Hansen is a 78-year-old woman with duodenal AVMs, peptic ulcer disease, esophageal varices, complicated by chronic blood loss and iron deficiency anemia, dependent on transfusions; type 2 diabetes, on insulin; heart failure, reduced ejection fraction of 45-50%; COPD, on 2 L home O2; and ONUR, not on CPAP, who is presenting with acute leg pain. She states this pain started on the day prior to presentation when she attempted to stand and this could be rated 10/10 in severity. She reports it is associated with paresthesias and numbness, but this is a chronic symptom for her. She feels she was unable to move her leg due to the pain. Initial interview was difficult as the patient was possibly very frustrated. Therefore, it was difficult to figure out the patient's baseline and what is her new symptom. The patient does mention that she barely moves at home and is wheelchair bound and she requires assistance for transfer. Her lives with her, but is also intermittently in a wheelchair as he has had recent knee replacements. In the emergency room, the patient demanded to leave AMA when care team was asking her about her functional status at home and if she has ever had a home health aide; however, she was redirectable. She did undergo a CT lumbar spine which showed some spinal stenosis with disk bulging. Her blood glucose was elevated to 614 and she was briefly placed on an insulin drip. For her lumbar pain, she was given a dose of Flexeril as well some tramadol with continuation of her home oxy. She was also ordered for physical therapy. Physical therapy did recommend home PT, which the patient has refused in the past, although this admission she does seem more amenable to evaluation with VNS, although she does report that last week she had a VNS appointment and canceled that because she was not ready to have someone in her home. Next morning after the patient's admission, it was noted that her hemoglobin dropped from 7.1 to 5.9, so the patient was given 2 units of packed red blood cells. She was ordered for 2 units of packed red blood cells. Later in the afternoon, she was noted to have episode of hypotension and lightheadedness, so her Bumex was held. By next morning, the patient had CAT team called for bradycardia and hypoxia. Prior to CAT call, the patient was noted to be wheezy without improvement with nebulizers. Her saturations continue to decrease, so her heart rate. She was transferred to the ICU for respiratory failure, thought to be mixed picture of COPD and fluid overload after recent blood transfusion. The patient reinforced her goal to be DNR/DNI. Her pCO2 that morning was noted to be 74 and she was initiated on BiPAP. Later in the morning, the patient felt significantly improved and her pCO2 decreased to 58. In the ICU, her pressure is stabilized and she was able to tolerate extra doses of IV Bumex. The patient reported feeling significantly better except for mild wheeze and shortness of breath. She denied chest pain, fevers, chills, cough. She was deemed safe for transfer to the floor after 1 day in the ICU. On the floor, the patient had 1 brief episode of tachypnea, although during that time it was noted her oxygen saturation was 100% and it was thought anxiety may be playing a component. She was again given Bumex 2 mg IV x2 with significant urinary output and decrease in her weight. Throughout admission, her weight decreased approximately 8 pounds. By next morning, the patient again states she is feeling back to her baseline; however, she did not feel safe going home until she knew her son would be able her help her home as she reports her is unable to. We discussed that once the patient no longer has active medical issues, the risks of staying in the hospital outweighs the benefits and it was again recommended that if the patient cannot get help from her at home that she accepts VNS services. She reiterated how she turned down VNS when they were to make an appointment last week and she was again ready to have any non- related people into her home. The patient was going to be given a 24-hour discharge notices as she was asking to stay a few more days until after [place], but then the patient was amenable to returning home and was able to get in touch with her son who was going to meet her there. She was again amenable to VNS referral. Also, of note, the patient used BiPAP nightly in the hospital with significant improvement in her respiratory symptoms and energy levels during the day. The patient does report that she was told she has apnea and her reports that she does snore a lot. The patient states she never had a CPAP machine but would have one as she has felt so much better on the BiPAP. Unfortunately, it was explained that CPAP machine cannot be ordered from the hospital, but she knows to follow up with her primary care physician. PERTINENT STUDIES AND LABS: CBC notable for hemoglobin in the 8 which is her baseline with MCV 78. BMP with creatinine 1.08 which is the patient's baseline. Urine culture with Klebsiella pneumoniae which has grown in several of the patient's urine cultures over the last year. As the patient was asymptomatic, this was not treated. Chest x-ray with moderate right side pleural effusion, unchanged. Lumbar CT with mild lumbar levoscoliosis, multilevel degenerative lumbar disk disease and facet disease, no significant central canal stenosis, variable degrees of neuro foraminal narrowing secondary to a combination of diffusely bulging disk with some hypertrophic spurring of the endplates and degenerative facet disease. This was most significant at the level of L2-L3 and L3-L4. Moderate amount of free fluid in the upper abdomen and pelvis. DISCHARGE PLAN: The patient should follow up closely with her primary care physician for ongoing monitoring of her chronic medical problems. She was encouraged to weigh herself every single day and to contact her outpatient providers if she notices that her weight is increased more than 3 pounds from her baseline. She was also encouraged to follow up with her outpatient provider for ordering CPAP machine which the patient would benefit greatly from. The patient will also need ongoing monitoring of her TSH and her level was just above normal during hospitalization with TSH 6.6; however, this may be a normal level in someone who is 78 years old. She was also educated to monitor for symptoms of dysuria, fever, or flank pain as she was noted to have asymptomatic bacteriuria in the hospital and therefore was not given antibiotics for this. The patient was extensively educated that if she is to receive transfusions in the future, which is highly likely given her chronic GI bleeding such she should stress to her providers that she should be given extra doses of Bumex around that time as this is not her first heart failure exacerbation after being given blood transfusions. The patient was able to express understanding and teach back. The patient should also have outpatient followup for better blood glucose control as her glucose on presentation with over 600 and A1c in mid April was 7.9% and she will be due for a repeat in mid July. She should also seek outpatient PT referral if she will not accept physical therapy in her house for her symptoms of ongoing sciatica pain. The patient was educated on return precautions, which include, but are not limited to worsening lower extremity edema or orthopnea or new symptom of chest pain. She should eat a healthy diet, low in processed foods, low in carbohydrate, and resume activity as tolerated. DISPOSITION: Home. CONDITION: Improved. TIME SPENT: Approximately 60 minutes was spent on discharge of this patient, more than half of which was spent with care coordination at bedside for interview and exam. [id number]/[facility] #: [id number] WENDY
== END 2019-06-19 14:38 | disposition home or self-care (01) | DRG 551 ==
LOC: ED 20:46 → MED 06-15 06:15 → OBSVTOIN 06-16 16:00 → ICU 06-17 06:54 → MEDTELE 06-17 16:30
PROVIDERS: ADMIT Student in an Organized Health Care Education/Training Program; ATTEND Internal Medicine
DX: M51.16 Intervertebral disc disorders with radiculopathy, lumbar region (principal); I50.23 Acute on chronic systolic (congestive) heart failure; I50.43 Acute on chronic combined systolic (congestive) and diastolic (congestive) heart failure; J96.21 Acute and chronic respiratory failure with hypoxia; J96.22 Acute and chronic respiratory failure with hypercapnia; K55.21 Angiodysplasia of colon with hemorrhage; I13.0 Hypertensive heart and chronic kidney disease with heart failure and stage 1 through stage 4 chronic kidney disease, or unspecified chronic kidney disease; D62 Acute posthemorrhagic anemia; Z68.41 Body mass index [BMI] 40.0-44.9, adult; J96.11 Chronic respiratory failure with hypoxia; I85.10 Secondary esophageal varices without bleeding; M54.30 Sciatica, unspecified side; E11.22 Type 2 diabetes mellitus with diabetic chronic kidney disease; E66.01 Morbid (severe) obesity due to excess calories; M48.00 Spinal stenosis, site unspecified; G47.33 Obstructive sleep apnea (adult) (pediatric); J44.9 Chronic obstructive pulmonary disease, unspecified; Z79.4 Long term (current) use of insulin; Z79.899 Other long term (current) drug therapy; Z79.890 Hormone replacement therapy; Z99.81 Dependence on supplemental oxygen; Z66 Do not resuscitate; E11.65 Type 2 diabetes mellitus with hyperglycemia; N18.3 Chronic kidney disease, stage 3 (moderate); K75.81 Nonalcoholic steatohepatitis (NASH); K74.69 Other cirrhosis of liver; Z91.14 Patient's other noncompliance with medication regimen; E78.00 Pure hypercholesterolemia, unspecified; I25.10 Atherosclerotic heart disease of native coronary artery without angina pectoris; J43.9 Emphysema, unspecified; M19.90 Unspecified osteoarthritis, unspecified site; F41.9 Anxiety disorder, unspecified; F32.9 Major depressive disorder, single episode, unspecified; Z87.891 Personal history of nicotine dependence
CPT/HCPCS: 36415; 36600; 71045; 72131; 80048; 80053; 81003; 81015; 82607; 82746; 82803; 82947; 83605; 83735; 83880; 84100; 84443; 84484; 85014; 85018; 85025; 85610; 86850; 86900; 86901; 86922; 87077; 87086; 87186; 87641; 93005; 94640; 94660; 96374; 99285; A9270-GY; G8978-GP-CL; G8979-GP-CJ; J1644; J1815; J1885; J1940; J3475; J3535; P9040

== ENCOUNTER 2019-07-09 12:19 | Emergency (ER) | payer MEDICARE, OTHER ==
--- OUTSIDE RECORDS SUMMARY | 2019-07-09 12:27 | XMS REPORT ---
:1940 Author Organization [facility] Care Team Providers Name Role Phone Unavailable Unavailable Unavailable Problems Condition Condition Condition Status Onset Resolution Last Treating Comments Name Details Category Date Date Treatment Clinician Date Heart Heart Diagnosis Active 2018-06 Cristina failure, failure, 2-13 Burr unspecified unspecified Respiratory lung sounds Respirator Active Sussy deficit y 07-05 [place] 09:00: [id number] Allergies, Adverse Reactions, Alerts Allergy Name Allergy [...] Medications For This For This Patient Patient Vital Signs Vital Name Observation Time Observation Value Comments SYSTOLIC mm[Hg] 2019-07-05 18:09:47 130 mm[Hg] mm[Hg] Method: Sit DIASTOLIC mm[Hg] 2019-07-05 18:09:47 70 mm[Hg] mm[Hg] Method: Sit PULSE 2019-07-05 18:09:47 76 /min /min RESP RATE 2019-07-05 18:09:47 16 /min /min TEMP 2019-07-05 18:09:47 98.2 [degF] Procedures This patient has no known procedures. Results This patient has no known results.
--- OUTSIDE RECORDS SUMMARY | 2019-07-09 12:27 | XMS REPORT ---
:1940 Author Organization [facility] Care Team Providers Name Role Phone Unavailable Unavailable Unavailable Problems Condition Condition Condition Status Onset Resolution Last Treating Comments Name Details Category Date Date Treatment Clinician Date Heart Heart Diagnosis Active 2018-06 Cristina failure, failure, 2-13 Burr unspecified unspecified Allergies, Adverse Reactions, Alerts Allergy [...]
--- OUTSIDE RECORDS SUMMARY | 2019-07-09 12:27 | XMS REPORT ---
:1940 Author Organization [facility] Care Team Providers Name Role Phone Unavailable Unavailable Unavailable Problems Condition Condition Condition Status Onset Resolution Last Treating Comments Name Details Category Date Date Treatment Clinician Date Heart Heart Diagnosis Active 2018-06 Cristina failure, failure, 2-13 Burr unspecified unspecified Respiratory lung sounds Respirator Active Sussy deficit y 07-05 [place] 09:00: [id number] Allergies, Adverse Reactions, Alerts Allergy Name [...]
--- OUTSIDE RECORDS SUMMARY | 2019-07-09 12:27 | XMS REPORT ---
:1940 Author Organization [facility] Care Team Providers Name Role Phone Unavailable Unavailable Unavailable Problems Condition Condition Condition Status Onset Resolution Last Treating Comments Name Details Category Date Date Treatment Clinician Date Heart Heart Diagnosis Active 2018-06 Cristina failure, failure, 2-13 Brur unspecified unspecified Allergies, Adverse Reactions, Alerts Allergy [...]
--- NOTE | 2019-07-09 12:46 | ED ---
Adult Trauma - HPI Summary HPI Summary: Pt is a 78 y/o F presenting to the ED brought in by EMS for a fall. Pt states she was being pushed back to her recliner in her wheelchair when one of the wheels broke and she landed on her buttocks and back. She reports R lower back pain rated at 9/10. She denies SOB. - History of Current Complaint Stated Complaint: FALL BACK PAIN LEG PAIN Time Seen by Provider: 07/09/19 12:37 Hx Obtained From: Patient Mechanism of Injury: Fall Ambulatory at the Scene: No Loss of Consciousness: no loss of consciousness Onset/Duration: Started Hours Ago, Still Present Onset of Pain: Immediate Onset Severity: Moderate Current Severity: Moderate Location: Back Aggravating Factor(s): Nothing Alleviating Factor(s): Nothing Associated Signs & Symptoms: Negative: SOB - Additional Pertinent History Primary Care Physician: JASON - Allergy/Home Medications Allergies/Adverse Reactions: Allergies Allergy/AdvReac Type Severity Reaction Status Date / Time captopril Allergy Severe Hives Verified 02/16/19 01:45 Home Medications: Home Medications Albuterol Sulfate 1.25 mg INH Q4H PRN 07/09/19 [History Confirmed 07/09/19] Bumetanide TAB* [Bumex 2 MG TAB*] 2 mg PO DAILY 07/09/19 [History Confirmed ] Ferrous Gluconate TAB* [Fergon TAB*] 324 mg PO BID 07/09/19 [History Confirmed 07/09/19] Insulin REGULAR(*) 30 units SUBCUT .AT LUNCH & DINNER 07/09/19 [History Confirmed 07/09/19] Insulin REGULAR(*) 35 units SUBCUT .AT BREAKFAST 07/09/19 [History Confirmed ] Magnesium Chloride EC TAB* [Slow Mag EC TAB*] 71.5 mg PO DAILY 07/09/19 [ History Confirmed 07/09/19] Metformin ER (NF) 500 mg PO BID 07/09/19 [History Confirmed 07/09/19] Terazosin CAP* [Hytrin CAP 5 MG*] 10 mg PO BEDTIME 07/09/19 [History Confirmed 07/09/19] PMH/Surg Hx/FS Hx/Imm Hx Previously Healthy: Yes Endocrine/Hematology History: Reports: Hx Blood Transfusions, Hx Diabetes, Hx Thyroid Disease, Hx Anemia - chronic iron infusions Cardiovascular History: Reports: Hx Angina, Hx Congestive Heart Failure, Hx Coronary Artery Disease, Hx Hypercholesterolemia, Hx Hypertension, Other Cardiovascular Problems/Disorders - cardiomyopathy Denies: Hx Myocardial Infarction, Hx Pacemaker/ICD, Hx Peripheral Vascular Disease Respiratory History: Reports: Hx Asthma, Hx Chronic Obstructive Pulmonary Disease (COPD), Other Respiratory Problems/Disorders - emphysema Denies: Hx Sleep Apnea GI History: Reports: Hx Cirrhosis, Hx Gastroesophageal Reflux Disease, Hx Gastrointestinal Bleed, Hx Hiatal Hernia - s/p repair, Hx Ulcer, Other GI Disorders - HELICOBACTER INFECTION History: Reports: Hx Chronic Renal Failure - Stage 3, Hx Renal Disease, Other Problems/Disorders - CKD stage 3 Musculoskeletal History: Reports: Hx Arthritis, Hx Back Problems, Other Musculoskeletal History - spinal stenosis Sensory History: Reports: Hx Cataracts - surgery with implants bilat eyes 96, Hx Contacts or Glasses - reading Denies: Hx Glaucoma, Hx Deafness, Hx Hearing Aid Opthamlomology History: Reports: Hx Cataracts - surgery with implants bilat eyes 96, Hx Contacts or Glasses - reading Denies: Hx Glaucoma Neurological History: Reports: Other Neuro Impairments/Disorders - vertigo Denies: Hx Headaches, Hx Seizures, Hx Transient Ischemic Attacks (TIA) Psychiatric History: Reports: Hx Anxiety, Hx Depression, Other Psychiatric Issues/Disorders - PT REPORTS"STRESS" AND SAYS HER MD GAVE HER A MED FOR IT, UNSURE WHAT Denies: Hx Panic Disorder - Cancer History Hx Chemotherapy: No Hx Radiation Therapy: No Hx Palliative Cancer Treatment: No - Surgical History Surgery Procedure, Year, and Place: HERNIA. HYSTERECTOMY. CATERACTS. CARPAL TUNNEL. CYSTS REMOVED FROM BILATERAL ARMPITS. RTC RT. LT FOOT SURGERY Hx Anesthesia Reactions: No - Immunization History Date of Tetanus Vaccine: > 10 yers Date of Influenza Vaccine: [id number] Infectious Disease History: Denies: Hx Clostridium Difficile, Hx Hepatitis, Hx Human Immunodeficiency Virus (HIV), Hx of Known/Suspected MRSA, Hx Shingles, Hx Tuberculosis, History Other Infectious Disease, Traveled Outside the [place] in Last 30 Days - Family History Known Family History: Positive: Diabetes, Other - Yes - CHF (Mother) - Social History Alcohol Use: None Hx Substance Use: No Substance Use Type: Reports: None Hx Tobacco Use: Yes Smoking Status (MU): Former Smoker Type: Cigarettes Have You Smoked in the Last Year: No Review of Systems Negative: Shortness Of Breath Positive: Myalgia - low R back All Other Systems Reviewed And Are Negative: Yes Physical Exam - Summary Physical Exam Summary: VITAL SIGNS: Reviewed. GENERAL: Patient is an elderly obese female who is lying comfortable in the stretcher. Patient is not in any acute respiratory distress. HEAD AND FACE: No signs of trauma. No ecchymosis, hematomas or skull depressions. No sinus tenderness.. EYES: PERRLA, EOMI x 2, No injected conjunctiva, no nystagmus. EARS: Hearing grossly intact. Ear canals and tympanic membranes are within normal limits. MOUTH: Oropharynx within normal limits. NECK: Supple, trachea is midline, no adenopathy, no JVD, no carotid bruit, no c- spine tenderness, neck with full ROM. CHEST: Symmetric, no tenderness at palpation. LUNGS: Clear to auscultation bilaterally. No wheezing or crackles. CVS: Regular rate and rhythm, S1 and S2 present, no murmurs or gallops appreciated. ABDOMEN: Soft, non-tender. No signs of distention. No rebound, no guarding, and no masses palpated. Bowel sounds are normal. EXTREMITIES: FROM in all major joints, no edema, no cyanosis or clubbing. Tenderness on the R paraspinal muscles of the lumbar spine. NEURO: Alert and oriented x 3. No acute neurological deficits. Speech is normal and follows commands. SKIN: Dry and warm. Two small stage II decubitus ulcers, approximately 1cm in diameter Triage Information Reviewed: Yes Vital Signs Reviewed: Yes Procedures - Sedation Patient Received Moderate/Deep Sedation with Procedure: No Diagnostics - Laboratory Lab Statement: Any lab studies that have been ordered have been reviewed, and results considered in the medical decision making process. - Radiology Pelvis XR Radiology Interpretation Completed By: Radiologist Summary of Radiographic Findings: NO EVIDENCE FOR FRACTURE, IF THE PATIENT'S SYMPTOMS PERSIST RECOMMEND FOLLOW-UP IMAGING. ED physician has reviewed this report. R hip XR Radiology Interpretation Completed By: Radiologist Summary of Radiographic Findings: NO EVIDENCE FOR FRACTURE, IF THE PATIENT'S SYMPTOMS PERSIST RECOMMEND FOLLOW-UP IMAGING. ED physician has reviewed this report. L hip XR Radiology Interpretation Completed By: Radiologist Summary of Radiographic Findings: NO EVIDENCE FOR FRACTURE, IF THE PATIENT'S SYMPTOMS PERSIST RECOMMEND FOLLOW-UP IMAGING. ED physician has reviewed this report. L-spine XR Radiology Interpretation Completed By: Radiologist Summary of Radiographic Findings: NO EVIDENCE FOR FRACTURE, IF THE PATIENT'S SYMPTOMS PERSIST RECOMMEND FOLLOW-UP IMAGING. ED physician has reviewed this report. Adult Trauma Course/Dx - Course Assessment/Plan: Pt is a 78 y/o F presenting to the ED brought in by EMS for a fall. Pt states she was being pushed back to her recliner in her wheelchair when one of the wheels broke and she landed on her buttocks and back. She reports R lower back pain rated at 9/10. She denies SOB. Pelvis IMPRESSION: NO EVIDENCE FOR FRACTURE, IF THE PATIENT'S SYMPTOMS PERSIST RECOMMEND. L spine X-ray IMPRESSION: NO EVIDENCE FOR FRACTURE. Right hp x ray IMPRESSION: NO EVIDENCE FOR FRACTURE, IF THE PATIENT'S SYMPTOMS PERSIST RECOMMEND. Left Hip X ray IMPRESSION: NO EVIDENCE FOR FRACTURE, IF THE PATIENT'S SYMPTOMS PERSIST RECOMMEND. In the ED course patient was given [place] for pain. Patient reports feeling better. I discussed all the findings and test results with the patient. Patient was instructed to return to the emergency room immediately if any of the symptoms return worsens. Plan of care was discussed with the patient and understands and agrees. All questions were answered at patient satisfaction. There were no further complaints or concerns. Lung exam before discharge: CTA B/L. Good air exchange. No wheezing or crackles heard. CVS: S1 and S2 present. No murmurs appreciated. Patient is alert and oriented x 3. Patient is hemodynamically stable. Patient will be discharged home with follow up PCP in the next 2-3 days - Diagnoses Differential Diagnosis/HQI/PQRI: Positive: Contusion(s), Fracture, Dislocation, Hematoma(s), Sprain, Strain Provider Diagnoses: Fall, Back pain Discharge ED - Sign-Out/Discharge Documenting (check all that apply): Patient Departure - Discharge Plan Condition: Stable Disposition: HOME Patient Education Materials: Fall Prevention for Older Adults (ED) Referrals: Neena Moyer MD [Primary Care Provider] - Additional Instructions: Please follow up with your primary care provider within the next 1-3 days. Return to the emergency department with any new or worsening symptoms. - Billing Disposition and Condition Condition: STABLE Disposition: Home - Attestation Statements Document Initiated by Scribe: Yes Documenting Scribe: Marjorie Gama Provider For Whom Scribe is Documenting (Include Credential): Harshad Art MD. Scribe Attestation: I, Marjorie Gama, scribed for Harshad Art MD. on 07/09/19 at 8. Scribe Documentation Reviewed: Yes Provider Attestation: The documentation as recorded by the scribe, Marjorie Gama accurately reflects the service I personally performed and the decisions made by me, Harshad Art MD. Status of Scribe Document: Viewed
[2019-07-09] MEDS ORDERED: HYDROcodone/ACETAMIN 5-325 MG* 1 TAB PO ONE (15:03)
[2019-07-09 15:30] VITALS: BP 182/82
== END 2019-07-09 16:14 | disposition home or self-care (01) ==
LOC: ED 12:19
DX: M54.9 Dorsalgia, unspecified (principal); Z91.81 History of falling; Z87.891 Personal history of nicotine dependence; I13.0 Hypertensive heart and chronic kidney disease with heart failure and stage 1 through stage 4 chronic kidney disease, or unspecified chronic kidney disease; N18.3 Chronic kidney disease, stage 3 (moderate); I50.9 Heart failure, unspecified; K21.9 Gastro-esophageal reflux disease without esophagitis
CPT/HCPCS: 72100; 72170; 99282

== ENCOUNTER 2019-07-12 01:29 | Observation (INO) | payer MEDICARE, OTHER ==
[2019-07-12 06:06] LABS: Urine Appearance Cloudy; Urine Bilirubin Negative (Negative); Urine Blood 1+ (Negative); Urine Color Yellow; Urine Glucose 3+(>=500 mg/dL) (Negative); Urine Ketones Trace (Negative); Urine Nitrite Negative (Negative); Urine Protein Negative (Negative); Urine Specific Gravity 1.027 (1.010-1.030); Urine Urobilinogen Negative (Negative)
[2019-07-12] MEDS ORDERED: Iodixanol* (CONTRAST) 320 MG/ML 100 ML SDV IV ONE (06:12)
[2019-07-12 06:19] LABS: Urine Bacteria Absent (Absent); Urine Red Blood Cell Trace(0-2/hpf) (Absent); Urine Squamous Epithelial Cell Present (Absent); Urine White Blood Cell 3+(>20/hpf) (Absent)
[2019-07-12 06:33] LABS: BUN/Creatinine Ratio 19.5 (8-20); Calcium 8.8 mg/dL (8.6-10.3); EGFR African American 51.2 (>60); EGFR Non-African American 42.3 (>60); Potassium 4.6 mmol/L (3.5-5.0); Troponin I 0.02 ng/mL (<0.03)
[2019-07-12 06:35] LABS: Activated Partial Thrombo Time 22.3 seconds (26.0-38.0); INR 1.09 (0.82-1.09)
[2019-07-12] MEDS ORDERED: cefTRIAXone(*) 1 GM in NS 0.9% 50 ML* 50 ML IVPB ONE (06:51)
[2019-07-12] MEDS ORDERED: Lactated Ringers 1000 ML Bag* 1,000 ML IV ONE (06:51)
[2019-07-12 07:15] LABS: ABS Eosinophils 0.1 10^3/ul (0-0.6); ABS Lymphocytes 0.5 10^3/ul (1.0-4.8); ABS Monocytes 0.4 10^3/ul (0-0.8); ABS Neutrophils 3.1 10^3/ul (1.5-7.7); Eosinophil % 3.4 %; Hematocrit 28 % (35-47); Hemoglobin 8.4 g/dL (12.0-16.0); Lymphocyte % 11.4 %; Mean Corpuscular HGB Conc 30 g/dL (31-36); Mean Corpuscular Hemoglobin 24 pg (27-31); Mean Corpuscular Volume 79 fL (80-97); Mean Platelet Volume 10.6 fL (7.4-10.4); Nucleated Red Blood Cells % 0.1; Platelet Count 154 10^3/uL (150-450); Red Blood Count 3.52 10^6 /uL (3.70-4.87); Red Cell Distribution Width 22 % (10-15); White Blood Count 4.2 10^3/uL (3.5-10.8)
[2019-07-12] MEDS ORDERED: Insulin REGULAR(*) 1 UNITS UNIT IV PUSH ONE ×2 (07:15→08:40)
--- NOTE | 2019-07-12 07:18 | ED ---
Neurological HPI - HPI Summary HPI Summary: 79 year old female presents to the ED with a chief complaint of lightheadedness and left sided numbness in her upper extremities starting minutes [employer], resolved now. Patient was sitting watching TV when her hand started cramping. She felt numbness down her entire arm and tingling in her neck. Numbness resolved after 2 -3 minutes. Symptoms are resolved upon arrival. Denies dizziness and headache. Per EMS, patient is hyperglycemic. PMHx of DM. She is medication compliant but did not take her bed time dose. Patient has COPD. - History of Current Complaint Chief Complaint: EDNeurologicalDeficit Stated Complaint: L ARM NUMBNESS Time Seen by Provider: 07/12/19 05:47 Hx Obtained From: Patient Onset/Duration: Sudden Onset, Resolved Timing: Intermittent Episodes Lasting: - 3 minutes Current Severity: None Neurological Deficit Location: LUE Character: Numbness/Tingling Aggravating: Nothing Alleviating: Spontanious Resolution Associated Signs and Symptoms: Positive: Neck Pain/Stiffness. Negative: Headache, Dizziness - Additional Pertinent History Primary Care Physician: JASON - Allergy/Home Medications Allergies/Adverse Reactions: Allergies Allergy/AdvReac Type Severity Reaction Status Date / Time captopril Allergy Severe Hives Verified 02/16/19 01:45 PMH/Surg Hx/FS Hx/Imm Hx Endocrine/Hematology History: Reports: Hx Blood Transfusions, Hx Diabetes, Hx Thyroid Disease, Hx Anemia - chronic iron infusions Cardiovascular History: Reports: Hx Angina, Hx Congestive Heart Failure, Hx Coronary Artery Disease, Hx Hypercholesterolemia, Hx Hypertension, Other Cardiovascular Problems/Disorders - cardiomyopathy Denies: Hx Myocardial Infarction, Hx Pacemaker/ICD, Hx Peripheral Vascular Disease Respiratory History: Reports: Hx Asthma, Hx Chronic Obstructive Pulmonary Disease (COPD), Other Respiratory Problems/Disorders - emphysema Denies: Hx Sleep Apnea GI History: Reports: Hx Cirrhosis, Hx Gastroesophageal Reflux Disease, Hx Gastrointestinal Bleed, Hx Hiatal Hernia - s/p repair, Hx Ulcer, Other GI Disorders - HELICOBACTER INFECTION History: Reports: Hx Chronic Renal Failure - Stage 3, Hx Renal Disease, Other Problems/Disorders - CKD stage 3 Musculoskeletal History: Reports: Hx Arthritis, Hx Back Problems, Other Musculoskeletal History - spinal stenosis Sensory History: Reports: Hx Cataracts - surgery with implants bilat eyes 96, Hx Contacts or Glasses - reading Denies: Hx Glaucoma, Hx Deafness, Hx Hearing Aid Opthamlomology History: Reports: Hx Cataracts - surgery with implants bilat eyes 96, Hx Contacts or Glasses - reading Denies: Hx Glaucoma Neurological History: Reports: Other Neuro Impairments/Disorders - vertigo Denies: Hx Headaches, Hx Seizures, Hx Transient Ischemic Attacks (TIA) Psychiatric History: Reports: Hx Anxiety, Hx Depression, Other Psychiatric Issues/Disorders - PT REPORTS"STRESS" AND SAYS HER MD GAVE HER A MED FOR IT, UNSURE WHAT Denies: Hx Panic Disorder - Cancer History Hx Chemotherapy: No Hx Radiation Therapy: No Hx Palliative Cancer Treatment: No - Surgical History Surgery Procedure, Year, and Place: HERNIA. HYSTERECTOMY. CATERACTS. CARPAL TUNNEL. CYSTS REMOVED FROM BILATERAL ARMPITS. RTC RT. LT FOOT SURGERY Hx Anesthesia Reactions: No - Immunization History Date of Tetanus Vaccine: > 10 yers Date of Influenza Vaccine: 3408-0332 Infectious Disease History: Denies: Hx Clostridium Difficile, Hx Hepatitis, Hx Human Immunodeficiency Virus (HIV), Hx of Known/Suspected MRSA, Hx Shingles, Hx Tuberculosis, History Other Infectious Disease, Traveled Outside the [place] in Last 30 Days - Family History Known Family History: Positive: Diabetes, Other - Yes - CHF (Mother) - Social History Alcohol Use: None Hx Substance Use: No Substance Use Type: Reports: None Hx Tobacco Use: Yes Smoking Status (MU): Former Smoker Type: Cigarettes Have You Smoked in the Last Year: No Review of Systems Positive: Myalgia Neurological: Negative - dizziness Positive: Numbness. Negative: Headache All Other Systems Reviewed And Are Negative: Yes Physical Exam - Summary Physical Exam Summary: Constitutional: Well-developed, Well-nourished, Alert. (-) Distressed Skin: Warm, Dry HENT: Normocephalic; Atraumatic Eyes: Conjunctiva normal Neck: Musculoskeletal ROM normal neck. (-) JVD, (-) Stridor, (-) Tracheal deviation Cardio: Rhythm regular, rate normal, Heart sounds normal; Intact distal pulses; The pedal pulses are 2+ and symmetric. Radial pulses are 2+ and symmetric. Pulmonary/Chest wall: Effort normal. (-) Respiratory distress, (-) Rales, wheezing in upper lobe bilaterally at end of exhalation. Abd: Soft, (-) tenderness, (-) Distension, (-) Guarding, (-) Rebound. Protuberant distended abdomen. Musculoskeletal: Significant severe venous stasis hyperpigmentation. Chronic lower extremity bilaterally symmetrical edema. Normal cap refill. Neuro: Alert, Oriented x3 Psych: Mood and affect Normal Triage Information Reviewed: Yes Vital Signs On Initial Exam: Initial Vitals Pulse Resp BP Pulse Ox 89 23 154/62 94 07/12/19 05:38 07/12/19 05:38 07/12/19 05:38 07/12/19 05:38 Vital Signs Reviewed: Yes Procedures - Sedation Patient Received Moderate/Deep Sedation with Procedure: No Diagnostics - Vital Signs Vital Signs Pulse Resp BP Pulse Ox 07/12/19 06:38 89 21 165/64 95 07/12/19 06:08 87 20 161/61 95 07/12/19 06:00 88 21 94 07/12/19 05:48 89 21 94 07/12/19 05:38 89 23 154/62 94 - Laboratory Lab Results: Lab Results 07/12/19 07/12/19 07/12/19 Range/Units 01:50 01:50 05:34 INR (Anticoag Therapy) 1.09 (0.82-1.09) APTT 22.3 L (26.0-38.0) seconds Sodium 131 L (135-145) mmol/L Potassium 4.6 (3.5-5.0) mmol/L Chloride 90 L (101-111) mmol/L Carbon Dioxide 34 H (22-32) mmol/L Anion Gap 7 (2-11) mmol/L BUN 24 (6-24) mg/dL Creatinine 1.23 H (0.51-0.95) mg/dL Est GFR ( Amer) 51.2 (>60) Est GFR (Non-Af Amer) 42.3 (>60) BUN/Creatinine Ratio 19.5 (8-20) Glucose 799 H* (70-100) mg/dL Calcium 8.8 (8.6-10.3) mg/dL Troponin I 0.02 (<0.03) ng/mL Urine Color Yellow Urine Appearance Cloudy Urine pH 7.0 (5-9) Ur Specific [place] 1.027 (1.010-1.030) Urine Protein Negative (Negative) Urine Ketones Trace A (Negative) Urine Blood 1+ A (Negative) Urine Nitrate Negative (Negative) Urine Bilirubin Negative (Negative) Urine Urobilinogen Negative (Negative) Ur Leukocyte Esterase 2+ A (Negative) Urine WBC (Auto) 3+(>20/hpf) A (Absent) Urine RBC (Auto) Trace(0-2/hpf) (Absent) Ur Squamous Epith Cells Present A (Absent) Urine Bacteria Absent (Absent) Urine Glucose 3+(>=500 mg/dl) A (Negative) Result Diagrams: 07/12/19 01:50 07/12/19 01:50 Lab Statement: Any lab studies that have been ordered have been reviewed, and results considered in the medical decision making process. - EKG 0144 Cardiac Rate: NL - 89 bpm EKG Rhythm: Sinus Rhythm Summary of EKG Findings: EKG at 0144 shows sinus rhythm at [address] segment abnormalities. LVH similar to EKG in May. QTC interval at 502, up from last year at 498. An ED physician has reviewed and interpreted this EKG. Course/Dx - Course Course Of Treatment: 79 year old female presents to the ED with a chief complaint of lightheadedness and left sided numbness in her upper extremities starting minutes [employer], resolved now. Patient was sitting watching TV when her hand started cramping. She felt numbness down her entire arm and tingling in her neck. Numbness resolved after 2-3 minutes. Symptoms are resolved upon arrival. Denies dizziness and headache. Per EMS, patient is hyperglycemic. PMHx of DM. She is medication compliant but did not take her bed time dose. Patient has COPD. Wheezing in upper lobes bilaterally at end of exhalation. Protuberant distended soft abdomen. Bilateral pitting edema. EKG at 0144 shows sinus rhythm at [address] segment abnormalities. LVH similar to EKG in May. QTC interval at 502, up from last year at 498. Lab shows Bicarbonate 34, Creatinine 1.23, Glucose 799, Inr normal, Cbc 8.4, and Potassium normal. Second glucose reading reads >400. Patient is a signout to Dr. Hunter at change of shifts at 0700, pending head CT and laboratory results. Spoke to Dr. Junior who will probably admit patient, pending laboratory results. Diagnosis is hyperglycemia. - Diagnoses Provider Diagnoses: Hyperglycemia - Physician Notifications Discussed Care Of Patient With: Nakita Junior - hospitalist Time Discussed With Above Provider: 07:09 Instructed by Provider To: Other - Spoke to Dr. Junior who will probably admit patient, pending laboratory results. Discharge ED - Sign-Out/Discharge Documenting (check all that apply): Sign-Out Patient Signing out patient TO: Valente Hunter - Patient is a signout to Dr. Hunter at change of shifts at 0700 on 07/12/19 - Discharge Plan Condition: Stable Referrals: Neena Moyer MD [Primary Care Provider] - - Billing Disposition and Condition Condition: STABLE - Attestation Statements Document Initiated by Scribe: Yes Documenting Scribe: Dilshad Ireland Provider For Whom Viridianaibe is Documenting (Include Credential): Satish Jhaveri MD Scribe Attestation: Dilshad Benitez, scribed for Satish Jhaveri MD on 07/12/19 at 0750. Scribe Documentation Reviewed: Yes Provider Attestation: The documentation as recorded by the scribeDilshad accurately reflects the service I personally performed and the decisions made by me, Satish Jhaveri MD Status of Scribe Document: Viewed
[2019-07-12] MEDS ORDERED: Insulin REGULAR(*) 1 UNITS UNIT SUBCUT ONE (07:23)
[2019-07-12] MEDS ORDERED: cefTRIAXone(*) 1 GM ADVAN/BAG ONE (07:39)
--- NOTE | 2019-07-12 08:01 | ED ---
Progress - Progress Note Progress Note: The patient is a sign-out from Dr. Satish Jhaveri MD, to Dr. Valente Hunter MD, at change of shift at 0700 on 07/12/2019, pending labs, Head CTA, and admission acceptance. Repeat chemistry reveals sodium of 13, chloride of 92, carbon dioxide of 34, creatinine of 1.09, glucose of 695, alkaline phosphatase of 264, albumin of 2.9 , negative troponin. VBG shows pH of 7.43, pCO2 of 57, pO2 of 50, HCO3 of 33.3, O2 saturation of 87.3, and base excess of 11.2. Head CTA reveals significant stenosis and calcification. Dr. Junior accepts patient for admission. - Results/Orders Results/Orders: Head CTA: Calcification of the right carotid siphon with proximal stenosis of the sigmoid sinus with a lumen 1.5 mm, which would represent 55% stenosis. There is also calcification of the left carotid siphon with no stenosis. No intracranial stenosis, aneurysmal occlusion. Neck: no hemodynamically significant narrowing of the cervical, carotid or vertebral arteries. No dissection or occlusion. Large right-sided pleural effusion and multinodular thyroid gland. ED physician has reviewed this report. Course/Dx - Course Course Of Treatment: The patient is a 78 y/o female who presents with an episode of sudden onset complete left upper extremity numbness that resolved prior to EMS arriving. She had been sitting at rest with her phone in her hand when the arm went numb without a tingling sensation. She was unable to feel her phone in her hand, and she could not feel anything when the arm was palpated. However, the numbness resolved once EMS arrived. She still came to the ED, and while here, she had a Head CTA that has not resulted yet, but the radiologist who previewed the report called Dr. Jhaveri and told him there was significant critical stenosis without any LVOs or indication for hemorrhage at this time. Dr. Jhaveri also spoke with Dr. Junior from the hospitalist services, who has not yet accepted the patient, although she is aware, but she would like to wait for the official report of the CTA to ensure that the patient does not need to be transferred. Therefore, the patient is waiting labs, Head CTA results, and acceptance for admission at change of shift at 0700 on 07/12/2019. Repeat chemistry reveals sodium of 13, chloride of 92, carbon dioxide of 34, creatinine of 1.09, glucose of 695, alkaline phosphatase of 264, albumin of 2.9 , negative troponin. VBG shows pH of 7.43, pCO2 of 57, pO2 of 50, HCO3 of 33.3, O2 saturation of 87.3, and base excess of 11.2. Head CTA reveals significant stenosis and calcification. Dr. Junior accepts patient for admission. - Diagnoses Provider Diagnoses: Hyperglycemia Discharge ED - Sign-Out/Discharge Documenting (check all that apply): Patient Departure - Patient accepted for admission by Dr. Junior., Receiving Sign-Out Receiving patient FROM: Satish Jhaveri - Discharge Plan Condition: Stable Disposition: ADMITTED TO [facility] - Billing Disposition and Condition Condition: STABLE Disposition: Admitted to [facility] - Attestation Statements Document Initiated by Sheilae: Yes Documenting Scribe: Sweta Simpson Provider For Whom Vitaliy is Documenting (Include Credential): Dr. Valente Hunter MD Scribe Attestation: Sweta Benitez scribed for Dr. Valente Hunter MD on 07/12/19 at 1822. Scribe Documentation Reviewed: Yes Provider Attestation: The documentation as recorded by the Sweta puri accurately reflects the service I personally performed and the decisions made by me, Dr. Valente Hunter MD Status of Scribe Document: Viewed Procedures - Sedation Patient Received Moderate/Deep Sedation with Procedure: No
[2019-07-12 08:15] LABS: Albumin 2.9 g/dL (3.2-5.2); Albumin/Globulin Ratio 0.8 (1-3); BUN/Creatinine Ratio 20.2 (8-20); Calcium 8.6 mg/dL (8.6-10.3); EGFR African American 58.9 (>60); EGFR Non-African American 48.7 (>60); Globulin 3.8 g/dL (2-4); Potassium 4.4 mmol/L (3.5-5.0); Total Bilirubin 0.7 mg/dL (0.2-1.0); Total Protein 6.7 g/dL (6.4-8.9)
[2019-07-12] MEDS ORDERED: Acetaminophen TAB* 325 MG PO PRN (08:56)
[2019-07-12] MEDS ORDERED: Al Hydrox/Mg Hydrox/Simet LIQ* 30 ML UDC PO PRN (08:56)
[2019-07-12 08:59] LABS: Troponin I 0.02 ng/mL (<0.03)
[2019-07-12] MEDS ORDERED: Dextrose 50% VIAL 50 ml IV PUSH PRN ×2 (09:01→15:34)
[2019-07-12] MEDS ORDERED: oxyCODONE TAB* 5 MG TAB PO PRN (09:02)
[2019-07-12] MEDS ORDERED: Nystatin TOP POWDER* 15 GM BTL TOPICAL PRN (09:02)
[2019-07-12] MEDS ORDERED: Insulin REGULAR(*) 1 UNITS UNIT SUBCUT SCH (10:00)
[2019-07-12] MEDS: Losartan TAB* 25 MG PO SCH (10:14)
[2019-07-12] MEDS: Senna TAB 8.6 mg* TAB PO SCH ×2 (10:14→21:01)
[2019-07-12] MEDS: Docusate CAP* 100 MG PO SCH ×2 (10:14→21:01)
[2019-07-12] MEDS: Insulin LISPRO* 1 UNITS UNIT SUBCUT SCH ×7 (11:28→22:44)
[2019-07-12] MEDS ORDERED: Insulin LISPRO* 1 UNITS UNIT SUBCUT SCH (11:30)
[2019-07-12] MEDS: Carvedilol TAB* 25 MG PO SCH ×2 (11:51→21:01)
[2019-07-12] MEDS: Bumetanide TAB* 2 MG PO SCH (11:51)
[2019-07-12] MEDS: Levothyroxine TAB* 25 MCG TAB PO SCH (11:51)
[2019-07-12] MEDS: Spironolactone TAB* 25 MG PO SCH ×2 (11:51→21:01)
[2019-07-12] MEDS: Insulin REGULAR(*) 1 UNITS UNIT SUBCUT SCH ×2 (12:44→18:44)
--- NOTE | 2019-07-12 12:53 | HP ---
CC: Dr. Neena Moyer; Dr. Horton; Dr. Marcial; Dr. Samayoa * HISTORY AND PHYSICAL: DATE OF ADMISSION: 07/12/19 PRIMARY CARE PROVIDER: Dr. Neena Moyer. CLUB CAR ATTENDANT: Dr. Horton. MERCHANDISE ADJUSTMENT CLERK: Dr. Marcial. CHIEF COMPLAINT: Left arm numbness. HISTORY OF PRESENT ILLNESS: Erika Hansen is a 78-year-old female with history of uncontrolled diabetes, who stated that she did not feel well in the evening on 07/11/19 and decided not to take her mealtime dose of insulin, which is 30 units and her insulin NPH at night, which is 25 units. She did not check her sugars. She did not eat her dinner and she went to bed. She woke up early in the morning and she felt that her left arm was cramping. When she asked her to massage it, she realized that she did not feel her touching her hand. It lasted approximately 2 minutes and resolved spontaneously. By the time the EMT had arrived, her symptoms resolved entirely, but the patient was convinced to come into the ED for evaluation. During the evaluation in the ED, it became apparent that the patient's sugars are 799. The patient also has history of significant CHF with bilateral lower extremity edema and she uses oxygen continuously at 2 L. Due to her history of CHF with CHF exacerbation, she received 1 L of intravenous fluids. She did not have an anion gap on her lab work and she is going to be admitted with diagnosis of uncontrolled diabetes and to rule out CVA. PAST MEDICAL HISTORY: 1. History of insulin-dependant diabetes, type 2. 2. Morbid obesity. 3. 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 4. History of duodenal AVMs with chronic GI bleed that required intermittent blood transfusions, last one at the end of May of 2019. 5. Nonischemic cardiomyopathy with an EF of 45% to 50%. 6. Diastolic dysfunction. 7. COPD, on chronic oxygen at 2 L. 8. Hypertension. 9. Chronic kidney disease, stage 3. 10. Iron deficiency anemia. 11. Spinal stenosis. 12. Hyperlipidemia. 13. Hypothyroidism. 14. Diabetic neuropathy. 15. History of cyst on the adrenal glands. 16. Vertigo. PAST SURGICAL HISTORY: 1. Status post hysterectomy. 2. Hernia repair. 3. Carpal tunnel release. 4. Foot surgery. 5. Rotator cuff surgery. 6. Cataract. MEDICATIONS: Medications at home include: 1. Coreg 25 mg b.i.d.. 2. Levothyroxine 25 mcg daily. 3. Metformin 500 mg b.i.d. 4. Terazosin 10 mg at bedtime. 5. Omeprazole 20 mg b.i.d. 6. Nystatin powder p.r.n. 7. Kenalog cream p.r.n. 8. Simvastatin 20 mg daily. 9. Nitroglycerin sublingual on p.r.n. basis. 10. Oxycodone 2.5 to 5 mg every 6 hours p.r.n. 11. Losartan 50 mg daily. 12. Potassium chloride 20 mEq daily. 13. Bumetanide 2 mg daily. 14. Aldactone 50 mg in a.m. 15. Slow-Mag 71.5 mg daily. 16. Aldactone 25 mg q. p.m. 17. Insulin NPH 25 units q. p.m. 18. Insulin regular 30 units with lunch and dinner and 35 units at breakfast. 19. Spiriva inhaler on a daily basis. 20. Albuterol inhaler on p.r.n. basis. 21. Vitamin B12 100 mcg daily. 22. Ferrous gluconate 324 mg b.i.d. 23. Multivitamin 1 tablet daily. ALLERGIES: CAPTOPRIL causes rash. FAMILY HISTORY: Mother with a history of diabetes and heart disease. SOCIAL HISTORY: The patient has history of smoking 3 packs a day for 25 years and she quit in 2001. She denies any alcohol or drug use. 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 She lives with her , Alejandro Hansen, who is her surrogate. She is a full code. REVIEW OF SYSTEMS: Please see history of present illness. In addition to abovementioned, the patient has history of chronic dyspnea with exertion and she uses oxygen continuously. She has chronic bilateral lower extremity edema that gets better when she has her legs elevated. She has limited ambulation due to her obesity and leg edema. She denies any chest pain. She denies any headache, any other neuro symptoms or weakness apart from the 2-minute lasting left-sided arm numbness that initially started as cramping. Remaining 12 systems were reviewed with the patient and were otherwise negative. PHYSICAL EXAMINATION GENERAL: The patient is is a pleasant 78-year-old female who is in no acute distress. The patient is alert and oriented x3. VITAL SIGNS: Blood pressure 160/68, heart rate of 80 and regular, respiratory rate 25, oxygen saturation 98% on room air, temperature of 98.2. HEENT: Head is atraumatic, normocephalic. Eyes: Pupils are equal and reactive to light and accommodation. Oropharynx clear. Mucosa moist. NECK: Supple. No JVD. No bruits bilaterally. RESPIRATORY: Distant breath sounds at bilateral bases with crackles at left lung base. CARDIOVASCULAR: Regular rate and rhythm. No murmur. ABDOMEN: Protuberant, soft, nontender. Bowel sounds are present in all 4 quadrants. EXTREMITIES: There are chronic lymphedema-like changes in bilateral lower extremities. The chronic edema, which is extensive, appears to be improved from prior . The patient has chronic venostasis skin changes with hardening of the skin and discoloration and dry and flaky skin. There are no open lesions noted. Pulses are poorly palpable, but present in bilateral feet. NEUROLOGIC: Speech clear. Cranial nerves II through XII grossly intact. Motor strength is 5/5 bilaterally. [id number] not dysmetric. Babinski's are negative bilaterally. Sensation grossly intact. DIAGNOSTIC STUDIES/LAB DATA: Sodium of 132, potassium 3.4, chloride 92, carbon dioxide 34, BUN 22, creatinine 1.09. Glucose level repeated was 695. Liver function tests were unremarkable apart from alkaline phosphatase of 264, which is consistent with prior elevations. Troponin of 0.02. CBC: White blood cell count of 4.2, hemoglobin 8.4, hematocrit of 28, and platelets of 154. The patient's hemoglobin of 8.4 is close to her baseline. VBG showed pH of 7.43, pCO2 of 57, PaO2 of 15, bicarb of 33. The patient had a CT angiogram of the head obtained in the emergency department , which showed calcification of the right carotid siphon with proximal stenosis of the sigmoid sinus with a lumen 1.5 mm, which would represent 55% stenosis. There is also calcification of the left carotid siphon with no stenosis. No intracranial stenosis, aneurysmal occlusion. The neck showed "no hemodynamically significant narrowing of the cervical, carotid or vertebral arteries. No dissection or occlusion. Large right-sided pleural effusion and multinodular thyroid gland." EKG showed sinus rhythm with a heart rate of 89 beats per minute with criteria for LVH and downsloping ST elevation in leads V2 and V3, likely due to LVH. This was compared with a prior EKG from May of 2019 and was similar. Portable chest x-ray, impression: "Cardiomegaly. Pulmonary vascular congestion. Right pleural effusion decreased from 06/17/19. Small left pleural effusion. Right basilar atelectasis versus consolidation." ASSESSMENT AND PLAN: 1. Uncontrolled diabetes. The patient felt somewhat weak last night. She decided not to eat her dinner and not to take her mealtime and nighttime dose of insulin. She stated that she did not check her sugars. Today, her sugars are nearly 800. She does not appear hyperosmolar, in fact, she appears to be more fluid overloaded and she does not have anion gap to diagnose her with diabetic ketoacidosis. At this point, the patient is going to be admitted to the telemetry floor with a diagnosis of uncontrolled diabetes. The patient's troponin is 0.02. She is going to be placed on insulin sliding scale with fingersticks every 2 hours. She received 2 doses of IV regular insulin of _ 18 units today in the morning; in addition, she received 35 units of insulin lispro subcutaneously. We will continue her short-acting insulin with each meal and NPH at night in addition to the fingersticks every 2 hours until the patient's glucose levels normalize. At this point, I do not see necessity of the patient being placed in ICU on insulin drip. 2. Transient left-sided hand numbness. This could be related due to her extreme hyperglycemia, but with her uncontrolled diabetes and chronic medical problems, she is at high risk for cerebrovascular accident. This case will be reviewed with Dr. Samayoa. She is not a good candidate for anticoagulation or placement on antiplatelet agents due to her history of arteriovenous malformations and chronic gastrointestinal bleed requiring transfusion within the past 3 weeks. Nevertheless, she is going to be placed on telemetry monitored bed. Dr. Samayoa will see the patient for evaluation. An echocardiogram with bubble study is going to be obtained. 3. In regards to the patient's diastolic congestive heart failure. It is chronic. I am unsure if this is exacerbated since patient feels at her baseline , but she does have significant pleural effusions and cardiomegaly on her chest x-ray. Due to her extreme hyperglycemia at this point, I will not institute intravenous diuretic treatment and we will continue her on her Bumex. She received 1 L of intravenous fluids in the ED due to her hyperglycemia, which is not going to continued. I suspect that if her sugars are improved tomorrow, we can give her IV diuretics to mobilize some of the fluid from her lungs. 4. For DVT prophylaxis, due to the patient's history of chronic gastrointestinal bleed, the patient is going to be placed on sequential compression devices only. 5. The patient has history of nonalcoholic liver cirrhosis with chronically elevated alkaline phosphatase, which is close to the patient's baseline. 6. The patient's code status is full. Her surrogate is her . TIME SPENT: Approximately 75 minutes was spent on admission of this patient. More than half of that spent face to face with the patient during the interview and physical exam. [id number] #: [id number]
[2019-07-12] MEDS ORDERED: Insulin LISPRO* 1 UNITS UNIT SUBCUT ONE (15:34)
--- NOTE | 2019-07-12 16:14 | CONS ---
CONSULTATION REPORT: DATE OF CONSULT: 07/12/19 PATIENT OF: Dr. Junior, Dr. Neena Moyer, Dr. Horton, Dr. Marcial. HISTORY OF PRESENT ILLNESS: This is a 78-year-old woman who I was asked to evaluate for left arm symptoms. She notes that she has had cramping in her left hand and arm for a while, she could not be specific as to details, this happens about twice a week. She had an episode this morning where her left hand and arm were cramping and her head began going repetitively over to the right, it is unclear whether this was rhythmic movement or not. She was awake and alert throughout this and her massaged the hand, but she was numb at that point. She has been back to her baseline. Of note, she has significant gait disturbance and has difficulty ambulating at all because of the significant diabetic neuropathy. She also was found to have a severe hyperglycemia upon presentation here. She has had no prior stroke of note. 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 PAST MEDICAL HISTORY: She also has type 2 insulin-dependent diabetes, morbid obesity, duodenal AVMs with chronic GI bleed, nonischemic cardiomyopathy, diastolic dysfunction, COPD, hypertension, chronic kidney disease stage 3, iron deficiency anemia, spinal stenosis, hyperlipidemia, hypothyroidism, vertigo, adrenal gland cyst. PAST SURGICAL HISTORY: She is status post hysterectomy, herniorrhaphy, carpal tunnel release, foot surgery, rotator cuff surgery, cataract surgery. MEDICATIONS AT HOME: Include: 1. Multivitamin daily. 2. Ferrous gluconate 324 b.i.d. 3. Vitamin B12 1000 mcg daily. 4. Spiriva inhaler on a daily basis. 5. Insulin 25 q.p.m., insulin 30 mg lunch and dinner and 35 at breakfast. 6. Aldactone 25 q.p.m. 7. Slow-Mag 71.5 daily. 8. Aldactone 50 mg daily. 9. Bumetanide 2 mg daily. 10. Potassium chloride 20 mEq daily. 11. Losartan 50 mg daily. 12. Oxycodone 2.5 to 5 mg p.r.n. 13. Nitroglycerin p.r.n. 14. Simvastatin 20 mg daily. 15. Omeprazole 20 mg b.i.d. 16. Terazosin 10 mg at bedtime. 15. Metformin 500 b.i.d. 16. Levothyroxine 25 mcg daily. 17. Coreg 25 b.i.d. ALLERGIES: She is allergic to CAPTOPRIL, which causes rash. FAMILY HISTORY: Mother has diabetes and hypertension. SOCIAL HISTORY: She has a history of smoking 3 packs a day for 25 years, quitting in 2001. She does not use drugs or alcohol. 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 REVIEW OF SYSTEMS: In addition, significant for chronic dyspnea with exertion and uses oxygen continuously. She has bilateral pedal and leg edema. She has had no prior seizures. PHYSICAL EXAM: Temperature 98.2, pulse 80, respirations 24, blood pressure 169/ 65. She is alert and oriented with normal speech and comprehension. Cranial nerves II through XII were intact. Motor exam revealed normal strength, 5/5 in arms. Normal tone in the arms. Strength in legs had 5-/5 plantar flexion and dorsiflexion. Trace weakness in the leg. She had glove stocking loss to touch. Trace reflexes in legs. She had a wide based stance and needed assistance. She had used a walker, but hardly ever gets out of bed at this point. Reflexes trace and symmetric. Toes were downgoing. Chest: Clear. Cardiovascular: Regular rate and rhythm. Abdomen is soft with positive bowel sounds. DIAGNOSTIC STUDIES/LAB DATA: White count 4.2, hematocrit 28, platelets 154. INR 1.09, PTT 22.3. Venous gas 7.43, pCO2 of 57, pO2 of 50. Glucose initially was 799, now it is down to 571. Sodium 133, bicarb 34, creatinine 1.09. UA had 2+ leuk esterase, 3+ white cells. Her CTA showed 50% stenosis in the right carotid with left carotid no stenosis. No other intracranial lesions in terms of vascular abnormalities. IMPRESSION AND PLAN: I discussed with the family and Dr. Junior that her left hand cramping and her head going to the right does not sound like a stroke. This may just be on basis of her metabolic abnormalities. It is possible that this represented a seizure. It did not sound rhythmic, the head jerking, she was awake and a massage seemed to help, but we will check an EEG to screen for seizures. I would not treat unless we find something specific. I discussed that the cramping and head jerking did not sound like stroke or transient ischemic attack symptoms. She had focal numbness in association with this. Even though focal left hand and arm numbness can be a sign of a transient ischemic attack or stroke, in the setting of this cramping which she has had before, I think that this is unlikely to be stroke related or cerebrovascular related. I think this could be related to a neuropathy, possibly carpal tunnel being worse secondary to the hand cramping. She obviously is at high risk for stroke with multiple risk factors and it would be most prudent to check an MRI scan. If this is likely to show some small vessel ischemic changes, but if it does not show an acute stroke given her significant anemia and ongoing gastrointestinal bleeding, it would be too risky to put her on any antiplatelet agents or any anticoagulant. If it appears that she has a stroke, I would recommend speaking to her GI doctor before considering antiplatelet agents to weigh the risks and benefits. Thank you for sharing her case. [id number]/[facility] #: [id number] WENDY
[2019-07-12] MEDS ORDERED: Perflutren Lipid Microsphere* 3 ML VIAL ONE (16:18)
[2019-07-12] MEDS ORDERED: Insulin NPH(*) 1 UNITS UNIT SUBCUT SCH (18:00)
--- NOTE | 2019-07-12 20:24 | ECHO ---
*[facility]* [place] [address] Fax #: [phone] Transthoracic Echocardiogram Patient: Erika Hansen : 1940 Study Date: 07/12/2019 Age: 78 Gender: F HR: 68 bpm Height: 63 in /160 cm BSA: 1.94 m^2 Weight: 201.6 lb /91.6 kg BMI: 35.8 kg/m^2 *Knotting Machine Operator: * Enid Thomas RDCS RN *Referring Physician: * Nakita Junior *Reading Physician: * Riley Hills MD Indications: CVA. History: Congestive heart failure. Non-ischemic cardiomyopathy. COPD. ONUR. Renal failure. Risk factors: Former tobacco use. Hypertension. Diabetes mellitus. Morbidly obese. Dyslipidemia. Conclusions Summary: - Left ventricle: Systolic function is mildly reduced. The estimated ejection fraction is 45-50%. Systolic function is slightyly improved from the study of March 2019. Features are consistent with a pseudonormal left ventricular filling pattern, with concomitant abnormal relaxation and increased filling pressure (grade 2 diastolic dysfunction). - Regional wall motion abnormality: Hypokinesis of the mid anterior, basal-mid anteroseptal, basal-mid inferoseptal, and apical inferior myocardium. - Left atrium: The atrium is mildly dilated. - Atrial septum: No defect or patent foramen ovale is identified with color Dopper or agitated saline. Bubble study was negative on Images 118 and 119. - Tricuspid valve: There is mild regurgitation. Study data: Transthoracic echocardiogram. Procedure: Transthoracic echocardiography was performed. Image quality was fair. The study was technically limited due to body habitus and COPD. Intravenous Definity 2 ml was administered to enhance imaging at the left ventricular apex. A bubble study was performed using agitated normal saline. Images 118 and 119. Complete 2D, spectral Doppler, and color flow Doppler. Location: Bedside. Patient status: Inpatient. Patient room number: 446-01. Comparison is made to the study of March 2019. Rhythm: Normal sinus rhythm. Findings Left ventricle: The cavity size is normal. Wall thickness is mildly increased. Systolic function is mildly reduced. The estimated ejection fraction is 45-50%. Systolic function is slightyly improved from the study of March 2019. Regional wall motion abnormalities: Hypokinesis of the mid anterior, basal-mid anteroseptal, basal-mid inferoseptal, and apical inferior myocardium. Features are consistent with a pseudonormal left ventricular filling pattern, with concomitant abnormal relaxation and increased filling pressure (grade 2 diastolic dysfunction). Right ventricle: The cavity size is normal. Systolic function is low normal. Left atrium: The atrium is mildly dilated. Right atrium: The atrium is normal in size. Atrial septum: No defect or patent foramen ovale is identified with color Dopper or agitated saline. Bubble study was negative on Images 118 and 119. Mitral valve: The leaflets are mildly thickened. There are calcified chordae seen. There is no evidence of stenosis. There is trace to mild regurgitation. Aortic valve: The valve is trileaflet. The leaflets are mildly thickened. There is no evidence of stenosis. There is no significant regurgitation. Tricuspid valve: The valve is structurally normal. There is no evidence of stenosis. There is mild regurgitation. Pulmonic valve: The valve is structurally normal. There is no evidence of stenosis. There is trace regurgitation. Aorta: Aortic root: The aortic root is not dilated. Ascending aorta: The ascending aorta is not dilated. Aortic arch: The aortic arch is not dilated. Pericardium: There is no significant pericardial effusion. Pulmonary arteries: The main pulmonary artery is normal-sized. Systolic pressure is at the upper limits of normal, estimated to be 35 mm Hg. Pulmonary artery pressure may be underestimated Systemic veins: Inferior vena cava: Not well visualized. Measurements Left ventricle Value Ref Aortic valve Value Ref YONATAN, LAX 5.1 cm 3.8 - Tony diam, ED 1.7 cm ---- 5.2 Peak v, S 1.68 m/sec ---- ESD, LAX 3.4 cm 2.2 - VTI, S 40.5 cm ---- 3.5 Mean grad, S 7.0 mm Hg ---- FS, LAX 33 % 27 - 45 Peak grad, S 11.0 mm Hg ---- PW, ED, LAX (H) 1.2 cm 0.6 - LVOT/AV, VTI ratio 0.58 ---- 0.9 PW, ED (H) 1.2 cm 0.6 - Mitral valve Value Ref 0.9 Peak E 0.83 m/sec ---- IVS/PW, ED 0.95 -------- Peak A 1.22 m/sec ---- E', lat tony, TDI (L) 5.3 cm/sec >=10.0 Decel time 215 ms --- - E/e', lat tony, TDI 16 -------- Peak grad, D 2.7 mm Hg ---- E', med tony, TDI (L) 4.2 cm/sec >=7.0 Peak E/A ratio 0.7 --- - E/e', med tony, TDI 20 -------- E', avg, TDI 4.8 cm/sec -------- Pulmonic valve Value Ref E/e', avg, TDI (H) 17 <=14 Peak v, S 1.06 m/sec --- - Peak grad, S 4.0 mm Hg ---- LVOT Value Ref Peak kenya, S 1.07 m/sec -------- Tricuspid valve Value Ref VTI, S 23.5 cm -------- Peak RV-RA grad, S 27 mm Hg ---- Mean grad, S 2 mm Hg -------- Max TR kenya 2.6 m/sec ---- Ventricular septum Value Ref Aortic root Value Ref IVS, ED (H) 1.1 cm 0.6 - Root diam 2.9 cm <4.1 0.9 Ascending aorta Value Ref Right ventricle Value Ref AAo AP diam, S 2.7 cm ---- YONATAN, LAX 2.8 cm -------- YONATAN minor ax, A4C 3.4 cm 1.9 - Aortic arch Value Ref mid 3.5 Arch diam 2.1 cm ---- Pressure, S 35 mm Hg -------- Decending aorta Value Ref Left atrium Value Ref Julius peak kenya 0.8 m/sec ---- ML dim, A4C 5.1 cm -------- SI dim, A4C 5.0 cm -------- Pulmonary artery Value Ref Vol/bsa, ES, 1-p 33 ml/m^2 11 - 40 Pressure, S 35.0 mm Hg ---- A4C Vol/bsa, ES, A/L 34 ml/m^2 16 - 34 Right atrium Value Ref ML dim, ES, A4C 4.1 cm 2.6 - 4.4 SI dim, ES, A4C 4.3 cm 3.4 - 5.3 Estimated RAP 8 mm Hg -------- Legend: (L) and (H) willow values outside specified reference range. Prepared and electronically signed by Riley Hills MD 07/12/2019 20:23
[2019-07-12] MEDS ORDERED: Terazosin CAP* 5 MG PO SCH (21:00)
[2019-07-12] MEDS: Pantoprazole TAB * 40 MG TAB PO SCH (21:01)
[2019-07-12] MEDS: Ferrous Gluconate TAB* 324 MG TAB PO SCH (21:01)
[2019-07-13] MEDS: Insulin LISPRO* 1 UNITS UNIT SUBCUT SCH ×4 (00:28→06:21)
--- NOTE | 2019-07-13 03:03 | EEG ---
ELECTROENCEPHALOGRAPHY: DATE OF STUDY: 07/12/19 - ROOM #446 PATIENT OF: Dr. Samayoa. CLINICAL PROBLEM: This is a 78-year-old woman being evaluated for episodes of left hand cramping as well as her head going repetitively to the right. This study was done to evaluate for possible seizures. MEDICATIONS: Include: 1. Insulin. 2. Protonix. 3. Coreg. 4. Fergon. 5. Docusate. 6. Senna. 7. Aldactone. 8. Terazosin. 9. Levothyroxine. 10. Bumex. 11. Losartan. 12. Oxycodone. REPORT: With the patient awake, background cerebral activity consists of moderate- amplitude posterior dominant 7 to 8 Hz rhythm. No activation procedures performed. The patient never falls asleep. No epileptiform potentials, focal abnormalities, or major asymmetries of background are noted. CLINICAL IMPRESSION: This awake EEG shows no epileptiform potentials or other major abnormalities. [id number]/[facility] #: [id number] [facility]
[2019-07-13] MEDS: Levothyroxine TAB* 25 MCG TAB PO SCH (05:29)
[2019-07-13 05:46] LABS: Hematocrit 23 % (35-47); Hemoglobin 7.3 g/dL (12.0-16.0); Mean Corpuscular HGB Conc 32 g/dL (31-36); Mean Corpuscular Hemoglobin 24 pg (27-31); Mean Corpuscular Volume 76 fL (80-97); Red Blood Count 3.02 10^6 /uL (3.70-4.87); Red Cell Distribution Width 21 % (10-15); White Blood Count 4.4 10^3/uL (3.5-10.8)
[2019-07-13 05:48] LABS: BUN/Creatinine Ratio 21.8 (8-20); Calcium 8.4 mg/dL (8.6-10.3); EGFR African American 64.3 (>60); EGFR Non-African American 53.1 (>60); Potassium 3.7 mmol/L (3.5-5.0)
[2019-07-13 06:21] LABS: ABS Eosinophils 0.2 10^3/ul (0-0.6); ABS Lymphocytes 0.7 10^3/ul (1.0-4.8); ABS Monocytes 0.6 10^3/ul (0-0.8); ABS Neutrophils 2.8 10^3/ul (1.5-7.7); Eosinophil % 5.4 %; Large Platelets Present; Lymphocyte % 14.9 %; Mean Platelet Volume 10.5 fL (7.4-10.4); Platelet Count 125 10^3/uL (150-450); Polychromasia 1+
[2019-07-13] MEDS ORDERED: Insulin LISPRO* 1 UNITS UNIT SUBCUT SCH (07:30)
[2019-07-13] MEDS ORDERED: Insulin REGULAR(*) 1 UNITS UNIT SUBCUT SCH ×3 (08:00→17:00)
[2019-07-13] MEDS ORDERED: Potassium Chlor TAB* 20 MEQ TAB.ER PO SCH (09:00)
[2019-07-13] MEDS ORDERED: SPIRIVA Respimat* (tiotropium) 2.5 mcg/inh Inhaler INH SCH (09:00)
[2019-07-13] MEDS ORDERED: Magnesium Chloride EC TAB* 64 MG PO SCH (09:00)
[2019-07-13] MEDS: Losartan TAB* 25 MG PO SCH (09:19)
[2019-07-13] MEDS: Carvedilol TAB* 25 MG PO SCH (09:19)
[2019-07-13] MEDS: Spironolactone TAB* 25 MG PO SCH (09:19)
[2019-07-13] MEDS: Pantoprazole TAB * 40 MG TAB PO SCH (09:19)
[2019-07-13] MEDS: Bumetanide TAB* 2 MG PO SCH (09:19)
[2019-07-13] MEDS: Ferrous Gluconate TAB* 324 MG TAB PO SCH (09:20)
[2019-07-13] MEDS: Docusate CAP* 100 MG PO SCH (09:20)
[2019-07-13] MEDS: Senna TAB 8.6 mg* TAB PO SCH (09:20)
[2019-07-13] MEDS ORDERED: Furosemide IV* 10 MG/ML VIAL (40 MG) IV ONE (09:54)
[2019-07-13] MEDS ORDERED: Bumetanide IV* 0.25 MG/ML 4 ML VIAL SLOW PUSH ONE (10:30)
[2019-07-13 11:53] VITALS: BP 136/59
--- NOTE | 2019-07-13 14:41 | DS ---
CC: Dr. Moyer; Dr. Samayoa * DISCHARGE SUMMARY: DATE OF ADMISSION: 07/12/19 DATE OF DISCHARGE: 07/13/19 PRIMARY CARE PROVIDER: Dr. Moyer. DISCHARGE DIAGNOSES: 1. Transient left-sided hand numbness, could be due to carpal tunnel with negative stroke workup. 2. Extreme hyperglycemia with glucose level of 799 at admission due to medical noncompliance. 3. Worsening of chronic anemia, likely due to hemodilution. SECONDARY DIAGNOSES: 1. History of chronic hypoxemic respiratory failure, requiring oxygen at 2 L continuously. 2. Insulin-dependent diabetes type 2. 3. Morbid obesity. 4. Possible nonalcoholic liver disease with a history of esophageal varices, portal hypertension, and portal hypertensive gastropathy. 5. History of duodenal arteriovenous malformations and chronic gastrointestinal bleed that required intermittent blood transfusions in the past , the most recent one at the end of May 2019. 6. Nonischemic cardiomyopathy with EF of 45% to 50% with combined systolic and diastolic dysfunction and chronic congestive heart failure. 7. Hypertension. 8. Chronic kidney disease, stage 3. 9. Iron-deficiency anemia. 10. Spinal stenosis. 11. Hyperlipidemia. 12. Hypothyroidism. 13. Diabetic neuropathy. 14. History of cyst of one of the adrenal glands. 15. Vertigo. 16. Status post hysterectomy. 17. Hernia repair. 18. Carpal tunnel release. 19. Foot surgery. 20. Rotator cuff surgery. 21. Cataract surgery. MEDICATIONS AT DISCHARGE: Unchanged from admission and include: 1. Albuterol nebulizer on a p.r.n. basis. 2. Bumex 2 mg daily. 3. Coreg 25 mg b.i.d. 4. Vitamin B12 100 mcg daily. 5. Ferrous gluconate 324 mg b.i.d. 6. Insulin NPH 25 units at night. 7. Insulin regular 30 units at lunch and dinner and 35 units with breakfast. 8. Synthroid 25 mcg daily. 9. Cozaar 50 mg daily. 10. Slow-Mag 71.5 mg daily. 11. Metformin 500 mg b.i.d. 12. Multivitamin 1 tablet daily. 13. Nitroglycerin sublingual on a p.r.n. basis. 14. Nystatin powder on a p.r.n. basis. 15. Omeprazole 20 mg b.i.d. 16. Oxycodone 2.5 to 5 mg on a p.r.n. basis. 17. Zocor 20 mg daily. 18. Aldactone 50 mg daily and 25 mg q.p.m. 19. Terazosin 10 mg at bedtime. 20. Spiriva inhaler 1 inhalation daily. 21. Triamcinolone cream as previously used. 22. Potassium chloride 20 mEq daily. CONSULTATION DURING THE HOSPITAL STAY: Included Dr. Samayoa from Neurology. LABORATORY DATA AND STUDIES PERFORMED DURING THE HOSPITAL STAY: On 07/13/19, white blood cell count of 4.4, hemoglobin 7.3, hematocrit of 23, and platelets of 125. VBG at admission showed pH of 7.43, pCO2 of 57, pO2 of 50. Sodium of 137, potassium 3.7, chloride 97, carbon dioxide 35, BUN 22, creatinine 1.01, blood glucose level on the day of discharge in the morning was 145. The patient has urine cultures that are pending at the time of dictation. Transthoracic echocardiogram obtained on the day of admission on 07/12/19 showed EF of 45% to 50% with pseudonormal left ventricular filling pattern with concomitant abnormal relaxation, increased filling pressure, and grade 2 diastolic dysfunction. There was regional wall motion abnormality with hypokinesis of the mid anterior, basal, mid, anteroseptal, inferoseptal, and apical inferior myocardium. There was no PFO noted by agitated saline. The EF slightly improved from study from March of 2019. Brain MRI, impression: "No restriction or diffusion noted. Chronic ischemic white matter change. Age appropriate atrophy." CT angiogram of the head and neck was quoted in history and physical dictated by myself at admission. EEG obtained on 07/12/19, impression: "This awake EEG showed no epileptiform potentials or other major abnormalities." HOSPITAL COURSE: Erika Hansen is a 78-year-old female with a history of insulin- dependent diabetes, who presented to the hospital after she noted that her left hand that was occasionally cramping cramped more and when she asked her to massage her hand, she could not feel him touching her on the left arm. It lasted approximately a couple of minutes and resolved spontaneously. By that time though they already called 911 and when the ambulance crew arrived, they brought her to the ED for evaluation. At this point, she was noted to have sugar level of 799. She stated that she did not feel well the night before and she did not take her nighttime insulin, neither she took her insulin that was scheduled with dinner since she really did not eat that much. At admission in the ED, she received a liter of intravenous fluids. She was admitted to the telemetry monitored floor with neurological consultation. Dr. Samayoa recommended an MRI of the brain. CT angiogram of the head and neck although showed calcifications and atherosclerotic disease, there was no significant stenosis noted. The MRI of the brain was negative for a stroke. As per discussion with Dr. Samayoa, the patient has a history of chronic cramping in the left arm probably related to carpal tunnel disease. It is suspected that the patient's numbness of the left hand is probably a peripheral problem. She was not recommended any antiplatelet therapy due to her history of chronic GI bleed and AVMs. In regards to the patient's hyperglycemia, that was due to the patient's medical noncompliance. She was placed on q.2 fingersticks and her hyperglycemia was controlled by the time of discharge and she was back to her baseline insulin needs. In regards to the patient's anemia, her hemoglobin by the time of discharge was 7.3. She did receive a liter of intravenous fluids. Due to that, she is going to receive a dose of intravenous Bumex before her discharge in fear that she may develop congestive heart failure exacerbation if she does not get more diuresis prior to discharge. Her portable chest x-ray at admission did show pulmonary vascular congestion and cardiomegaly. At discharge, the patient is recommended to follow up with Dr. Moyer in approximately 4 to 7 days. PHYSICAL EXAMINATION: At the time of discharge, blood pressure of 125/49, heart rate of 74 and regular, respiratory rate 18, oxygen saturation 100% on 2 L of oxygen via nasal cannula, temperature 98.3. General: The patient is a very pleasant 78-year-old obese female, who is in no acute distress. The patient is alert and oriented x3. HEENT: Head: Atraumatic, normocephalic. Eyes: Pupils are equal, reactive to light and accommodation. Oropharynx is clear. Mucosa moist. Neck: Supple. No JVD. No bruits bilaterally. Cardiovascular: Regular rate and rhythm. 1/6 systolic ejection murmur noted on auscultation of the apex. Respiratory: Distant breath sounds at bilateral bases, otherwise clear. Abdomen: Soft, nontender. Bowel sounds are present in all 4 quadrants. Extremities: There are lymphedema like changes in bilateral lower extremities with chronic edema which is extensive, but appears to be improved from prior, noted from the wrinkling of the skin. The patient has chronic venous stasis skin changes with skin discoloration and dry flaky skin, but no open ulcers. Neuro Evaluation: Speech is clear. Cranial nerves II through XII grossly intact. Motor strength is 5/5 bilaterally. DISPOSITION AT DISCHARGE: Home. CONDITION AT DISCHARGE: Stable. TIME SPENT: Approximately 45 minutes was spent on the patient's discharge. Please note that this is a short summary of the patient's hospital stay. Please refer to further medical records for details. [id number]/[facility] #: [id number] MTDD
== END 2019-07-13 11:52 | disposition home or self-care (01) ==
LOC: ED 01:29 → INTOOBSV 08:56 → MEDTELE 08:56
PROVIDERS: ADMIT Internal Medicine; ATTEND Internal Medicine
DX: R20.0 Anesthesia of skin (principal); E11.65 Type 2 diabetes mellitus with hyperglycemia; J96.11 Chronic respiratory failure with hypoxia; Z79.4 Long term (current) use of insulin; Z99.81 Dependence on supplemental oxygen; E66.01 Morbid (severe) obesity due to excess calories; I13.0 Hypertensive heart and chronic kidney disease with heart failure and stage 1 through stage 4 chronic kidney disease, or unspecified chronic kidney disease; E11.22 Type 2 diabetes mellitus with diabetic chronic kidney disease; N18.3 Chronic kidney disease, stage 3 (moderate); I50.42 Chronic combined systolic (congestive) and diastolic (congestive) heart failure; D50.9 Iron deficiency anemia, unspecified; E78.5 Hyperlipidemia, unspecified; E03.9 Hypothyroidism, unspecified; E11.40 Type 2 diabetes mellitus with diabetic neuropathy, unspecified; R42 Dizziness and giddiness; Z87.19 Personal history of other diseases of the digestive system; Z87.891 Personal history of nicotine dependence
CPT/HCPCS: 36415; 70496; 70498; 70551; 71045; 80048; 80053; 81003; 81015; 82803; 82947; 84484; 85025; 85610; 85730; 87077; 87086; 87186; 93306; 94640; 95816; 96360; 96361; 99285; A9270-GY; C8929; G0378; J0696; J1815; J3535; Q9967

== ENCOUNTER 2019-07-30 23:33 | Emergency (ER) | payer MEDICARE, OTHER ==
--- OUTSIDE RECORDS SUMMARY | 2019-07-30 23:40 | XMS REPORT ---
:1940 Author Organization [facility] Care Team Providers Name Role Phone Unavailable Unavailable Unavailable Problems Condition Condition Condition Status Onset Resolution Last Treating Comments Name Details Category Date Date Treatment Clinician Date Heart Heart Diagnosis Active 2018-06 Cristina failure, failure, 2-13 Burr unspecified unspecified Respiratory lung sounds Respirator Unknown Sussy deficit y 07-05 [place] 09:00: [id number] Allergies, Adverse Reactions, Alerts Allergy Name [...]
--- OUTSIDE RECORDS SUMMARY | 2019-07-30 23:40 | XMS REPORT ---
:1940 Author Organization [facility] Care Team Providers Name Role Phone Unavailable Unavailable Unavailable Problems Condition Condition Condition Status Onset Resolution Last Treating Comments Name Details Category Date Date Treatment Clinician Date Heart Heart Diagnosis Active 2018-06 Cristina failure, failure, 2-13 Burr unspecified unspecified Respiratory lung sounds Respirator Unknown Sussy deficit y 07-05 [place] 09:00: [id number] Allergies, Adverse Reactions, Alerts Allergy Name [...]
--- OUTSIDE RECORDS SUMMARY | 2019-07-30 23:40 | XMS REPORT ---
:1940 Author Organization [facility] Care Team Providers Name Role Phone Unavailable Unavailable Unavailable Problems Condition Condition Condition Status Onset Resolution Last Treating Comments Name Details Category Date Date Treatment Clinician Date Heart Heart Diagnosis Active 2018-06 Cristina failure, failure, 2-13 Burr unspecified unspecified Respiratory lung sounds Respirator Unknown Sussy deficit y 07-05 [place] 09:00: [id number] Allergies, Adverse Reactions, Alerts Allergy Name [...]
--- OUTSIDE RECORDS SUMMARY | 2019-07-30 23:40 | XMS REPORT ---
:1940 Author Organization [facility] Care Team Providers Name Role Phone Unavailable Unavailable Unavailable Problems Condition Condition Condition Status Onset Resolution Last Treating Comments Name Details Category Date Date Treatment Clinician Date Heart Heart Diagnosis Active 2018-06 Cristina failure, failure, 2-13 Burr unspecified unspecified Respiratory lung sounds Respirator Unknown Sussy deficit y 07-05 [place] 09:00: [id number] Allergies, Adverse Reactions, Alerts Allergy Name [...]
--- NOTE | 2019-07-31 00:04 | ED ---
Syncope/Near Syncope - HPI Summary HPI Summary: Patient complains of episode of lightheadedness while at rest, states chest tightness, mild SOB, vomiting 3. Symptoms resolved after one hour. No active symptoms here in the ED. Denies fever, cough, sore throat, and/V/D, abdominal pain, change in urine, change in BM. Medical history COPD, DM, anemia, pancreatic tetanus, CHF, cardiac cardiomyopathy. Patient on home O2 2 L [address] Flores. BGL at home 148. - History Of Current Complaint Chief Complaint: EDDizziness Time Seen by Provider: 07/30/19 23:52 Hx Obtained From: Patient, Family/Income Tax Investigator Onset/Duration: Sudden Onset, Lasting Minutes Timing: Minutes Context: Witnessed Activity At Onset: At Rest Associated Head Trauma: No Aggravating Factor(s): Nothing Alleviating Factor(s): Spontaneous Resolution Associated Signs And Symptoms: Chest Pain, Lightheadedness, Shortness Of Breath , Vomiting - Allergies/Home Medications Allergies/Adverse Reactions: Allergies Allergy/AdvReac Type Severity Reaction Status Date / Time captopril Allergy Severe Hives Verified 07/30/19 23:42 PMH/Surg Hx/FS Hx/Imm Hx Endocrine/Hematology History: Reports: Hx Blood Transfusions, Hx Diabetes, Hx Thyroid Disease, Hx Anemia - chronic iron infusions Cardiovascular History: Reports: Hx Angina, Hx Congestive Heart Failure, Hx Coronary Artery Disease, Hx Hypercholesterolemia, Hx Hypertension, Other Cardiovascular Problems/Disorders - cardiomyopathy Denies: Hx Myocardial Infarction, Hx Pacemaker/ICD, Hx Peripheral Vascular Disease Respiratory History: Reports: Hx Asthma, Hx Chronic Obstructive Pulmonary Disease (COPD), Other Respiratory Problems/Disorders - emphysema Denies: Hx Sleep Apnea GI History: Reports: Hx Cirrhosis, Hx Gastroesophageal Reflux Disease, Hx Gastrointestinal Bleed, Hx Hiatal Hernia - s/p repair, Hx Ulcer, Other GI Disorders - HELICOBACTER INFECTION History: Reports: Hx Chronic Renal Failure - Stage 3, Hx Renal Disease, Other Problems/Disorders - CKD stage 3 Musculoskeletal History: Reports: Hx Arthritis, Hx Back Problems, Other Musculoskeletal History - spinal stenosis Sensory History: Reports: Hx Cataracts - surgery with implants bilat eyes 96, Hx Contacts or Glasses - reading Denies: Hx Glaucoma, Hx Deafness, Hx Hearing Aid Opthamlomology History: Reports: Hx Cataracts - surgery with implants bilat eyes 96, Hx Contacts or Glasses - reading Denies: Hx Glaucoma Neurological History: Reports: Other Neuro Impairments/Disorders - vertigo Denies: Hx Headaches, Hx Seizures, Hx Transient Ischemic Attacks (TIA) Psychiatric History: Reports: Hx Anxiety, Hx Depression, Other Psychiatric Issues/Disorders - PT REPORTS"STRESS" AND SAYS HER MD GAVE HER A MED FOR IT, UNSURE WHAT Denies: Hx Panic Disorder - Cancer History Hx Chemotherapy: No Hx Radiation Therapy: No Hx Palliative Cancer Treatment: No - Surgical History Surgery Procedure, Year, and Place: HERNIA REPAIR;. HYSTERECTOMY;. B/L CATERACTS;. B/L CARPAL TUNNEL;. CYSTS REMOVED FROM BILATERAL ARMPITS;. RTC RT ;. LT FOOT SURGERY Hx Anesthesia Reactions: No - Immunization History Date of Tetanus Vaccine: > 10 yers Date of Influenza Vaccine: [id number] Infectious Disease History: No Infectious Disease History: Denies: Hx Clostridium Difficile, Hx Hepatitis, Hx Human Immunodeficiency Virus (HIV), Hx of Known/Suspected MRSA, Hx Shingles, Hx Tuberculosis, History Other Infectious Disease, Traveled Outside the [place] in Last 30 Days - Family History Known Family History: Positive: Diabetes, Other - Yes - CHF (Mother) - Social History Alcohol Use: None Hx Substance Use: No Substance Use Type: Reports: None Hx Tobacco Use: Yes Smoking Status (MU): Former Smoker Type: Cigarettes Have You Smoked in the Last Year: No Review of Systems Constitutional: Negative Eyes: Negative ENT: Negative Positive: Chest Pain Positive: Shortness Of Breath Positive: Vomiting Genitourinary: Negative Musculoskeletal: Negative Skin: Negative Neurological: Negative Psychological: Normal All Other Systems Reviewed And Are Negative: Yes Physical Exam - Summary Physical Exam Summary: Neuro exam normal. Visual metz intact. Alert and oriented. Triage Information Reviewed: Yes Vital Signs On Initial Exam: Initial Vitals Temp Pulse Resp BP Pulse Ox 98.3 F 60 18 124/83 99 07/30/19 23:38 07/30/19 23:38 07/30/19 23:38 07/30/19 23:38 07/30/19 23:38 Vital Signs Reviewed: Yes Appearance: Positive: Well-Appearing Skin: Positive: Warm Head/Face: Positive: Normal Head/Face Inspection Eyes: Positive: Normal Neck: Positive: Supple Respiratory/Lung Sounds: Positive: Clear to Auscultation Cardiovascular: Positive: Normal Abdomen Description: Positive: Nontender Musculoskeletal: Positive: Normal Neurological: Positive: Normal Psychiatric: Positive: Normal AVPU Assessment: Alert - Cambria Coma Scale Best Eye Response: 4 - Spontaneous Best Motor Response: 6 - Obeys Commands Best Verbal Response: 5 - Oriented Coma Scale Total: 15 Procedures - Sedation Patient Received Moderate/Deep Sedation with Procedure: No Diagnostics - Vital Signs Vital Signs Temp Pulse Resp BP Pulse Ox 07/30/19 23:40 64 17 124/53 99 07/30/19 23:38 98.3 F 60 18 124/83 99 - Laboratory Result Diagrams: 07/31/19 00:15 07/31/19 00:15 Lab Statement: Any lab studies that have been ordered have been reviewed, and results considered in the medical decision making process. Course/Dx Course Of Treatment: Patient complains of episode of lightheadedness while at rest, states chest tightness, mild SOB, vomiting 3. Symptoms resolved after one hour. No active symptoms here in the ED. Denies fever, cough, sore throat , and/V/D, abdominal pain, change in urine, change in BM. Medical history COPD , DM, anemia, pancreatitis, hypothyroid,, CHF, cardiomyopathy. Patient on home O2 2L 17/01. Pediatrician Active [facility] is Dr. Horton. BGL at home 148. Vital signs within normal limits. Hemoglobin 8.9. Hematocrit 29. CO2 33. Creatinine 1.46. Magnesium 1.3. Alkaline phosphatase 172. BMP 163. TSH 9.77. Initial troponin 0.03. Other than TSH and troponin, labs at patient baseline. Magnesium 2 g IV administered. Orthostatic negative. EKG sinus rhythm, heart rate of 61, normal P axis. Chest x-ray unremarkable. - Diagnoses Provider Diagnoses: Near syncope, Hypothyroid, Hypomagnesemia, Elevated serum creatinine, Anemia Discharge ED - Sign-Out/Discharge Documenting (check all that apply): Sign-Out Patient Signing out patient TO: Mynor Oden - Discharge Plan Condition: Stable Disposition: HOME Patient Education Materials: Lightheadedness (ED) Referrals: Neena Moyer MD [Primary Care Provider] - Additional Instructions: Follow-up with primary care and your beveler for further evaluation. Return to the ED for any new or worsening symptoms. - Billing Disposition and Condition Condition: STABLE Disposition: Home
[2019-07-31 00:39] LABS: ALT 14 U/L (7-52); AST 18 U/L (13-39); Albumin/Globulin Ratio 0.8 (1-3); Alkaline Phosphatase 172 U/L (34-104); Anion Gap 5 mmol/L (2-11); BUN/Creatinine Ratio 19.9 (8-20); Blood Urea Nitrogen 29 mg/dL (6-24); C Reactive Protein 7.18 mg/L (<8.01); CO2 Carbon Dioxide 33 mmol/L (22-32); Calcium 8.2 mg/dL (8.6-10.3); Chloride 99 mmol/L (101-111); EGFR Non-African American 34.7 (>60); Globulin 3.9 g/dL (2-4); Glucose 86 mg/dL (70-100); Magnesium 1.3 mg/dL (1.9-2.7); Potassium 3.7 mmol/L (3.5-5.0); Sodium 137 mmol/L (135-145); Total Protein 6.9 g/dL (6.4-8.9)
[2019-07-31 00:42] LABS: Troponin I 0.03 ng/mL (<0.03)
[2019-07-31 01:18] LABS: ABS Eosinophils 0.2 10^3/ul (0-0.6); ABS Lymphocytes 0.9 10^3/ul (1.0-4.8); ABS Monocytes 0.4 10^3/ul (0-0.8); Eosinophil % 3.9 %; Hematocrit 29 % (35-47); Hemoglobin 8.9 g/dL (12.0-16.0); Mean Corpuscular HGB Conc 31 g/dL (31-36); Mean Corpuscular Hemoglobin 24 pg (27-31); Mean Corpuscular Volume 77 fL (80-97); Nucleated Red Blood Cells % 0.2; Red Blood Count 3.71 10^6 /uL (3.70-4.87); Red Cell Distribution Width 22 % (10-15); White Blood Count 5.6 10^3/uL (3.5-10.8)
[2019-07-31 01:24] LABS: TSH (Thyroid Stimulating Horm) 9.77 mcIU/mL (0.34-5.60)
[2019-07-31] MEDS ORDERED: NS 0.9% 1000 ML** 1,000 ML IV ONE (01:28)
[2019-07-31] MEDS ORDERED: Magnesium Sulfate 2 GM IV* 2 GM/50 ML BAG IVPB ONE (01:28)
[2019-07-31 01:53] LABS: Mean Platelet Volume 9.9 fL (7.4-10.4); Platelet Count 96 10^3/uL (150-450)
--- NOTE | 2019-07-31 03:28 | ED ---
Progress - Progress Note Progress Note: This pt is a sign out to Dr. Oden from [facility], at shift change 0230 pending a second troponin result and disposition. Course/Dx - Course Course Of Treatment: This pt is a sign out to Dr. Oden from [facility], at shift change 0230 07/31/2019 pending a second troponin result and disposition. Her Second troponin was a .02. The pt will be discharged home with a Dx near syncope. - Diagnoses Provider Diagnoses: Near syncope, Hypothyroid, Hypomagnesemia, Elevated serum creatinine, Anemia Discharge ED - Sign-Out/Discharge Documenting (check all that apply): Patient Departure - discharge - Discharge Plan Condition: Stable Disposition: HOME Patient Education Materials: Ray (ED) Referrals: Neena Moyer MD [Primary Care Provider] - Additional Instructions: Follow-up with primary care and your accounts payable supervisor for further evaluation. Return to the ED for any new or worsening symptoms. - Billing Disposition and Condition Condition: STABLE Disposition: Home - Attestation Statements Document Initiated by Vitaliy: Yes Documenting Scribe: Arnel Cummings Provider For Whom Vitaliy is Documenting (Include Credential): Mynor Oden MD Scribe Attestation: Arnel Benitez, scribed for Mynor Oden MD on 08/01/19 at 0524. Scribe Documentation Reviewed: Yes Provider Attestation: The documentation as recorded by the Arnel puri accurately reflects the service I personally performed and the decisions made by me, Mynor Oden MD Status of Scribe Document: Viewed
[2019-07-31 04:28] VITALS: BP 134/61
== END 2019-07-31 04:28 | disposition home or self-care (01) ==
LOC: ED 23:33
DX: R55 Syncope and collapse (principal); E03.9 Hypothyroidism, unspecified; E83.42 Hypomagnesemia; R94.4 Abnormal results of kidney function studies; D64.9 Anemia, unspecified; E11.9 Type 2 diabetes mellitus without complications; Z79.4 Long term (current) use of insulin; E78.00 Pure hypercholesterolemia, unspecified; I25.10 Atherosclerotic heart disease of native coronary artery without angina pectoris; I13.0 Hypertensive heart and chronic kidney disease with heart failure and stage 1 through stage 4 chronic kidney disease, or unspecified chronic kidney disease; N18.3 Chronic kidney disease, stage 3 (moderate); J44.9 Chronic obstructive pulmonary disease, unspecified; Z99.81 Dependence on supplemental oxygen; K21.9 Gastro-esophageal reflux disease without esophagitis; Z79.899 Other long term (current) drug therapy; Z88.8 Allergy status to other drugs, medicaments and biological substances; Z87.891 Personal history of nicotine dependence
CPT/HCPCS: 36415; 71045; 80053; 83735; 83880; 84443; 84484; 85025; 86140; 93005; 96365; 96366; 99283; J3475

== ENCOUNTER 2019-08-07 00:43 | Inpatient (IN) | payer MEDICARE, OTHER ==
[2019-08-07] MEDS ORDERED: NS 0.9% 1000 ML** 1,000 ML IV ONE ×2 (01:43→01:57)
--- NOTE | 2019-08-07 01:56 | ED ---
Altered Mental Status - HPI Summary HPI Summary: Patient is a 78 y/o diabetic female presenting to [facility] via EMS for decreased responsiveness, AMS. Currently, the patient is alert but not oriented, level 5 caveat secondary to AMS. History is obtained from , who is in the room. reports that the patient was asymptomatic throughout the day and Sx only onset around an hour ago when they were in bed. reports that the patient appeared to be having spasms and passed out. He believes that the patient did not take her most recent shot of insulin. He is unsure what her sugar levels have been throughout the day. It is reported that the patient has been eating and drinking at baseline. Home medications and allergies are reviewed. - History Of Current Complaint Chief Complaint: EDAltMentalStatus Stated Complaint: UNRESPONSIVE Time Seen by Provider: 08/07/19 01:32 Hx Obtained From: Family/Commercial Real Estate Appraiser Hx From Patient Unobtainable Due To: Altered Mental Status Onset/Duration: Still Present Timing: Constant, Lasting Hours Character: Responsiveness - Allergies/Home Medications Allergies/Adverse Reactions: Allergies Allergy/AdvReac Type Severity Reaction Status Date / Time captopril Allergy Severe Hives Verified 07/30/19 23:42 PMH/Surg Hx/FS Hx/Imm Hx Endocrine/Hematology History: Reports: Hx Blood Transfusions, Hx Diabetes, Hx Thyroid Disease, Hx Anemia - chronic iron infusions Cardiovascular History: Reports: Hx Angina, Hx Congestive Heart Failure, Hx Coronary Artery Disease, Hx Hypercholesterolemia, Hx Hypertension, Other Cardiovascular Problems/Disorders - cardiomyopathy Denies: Hx Myocardial Infarction, Hx Pacemaker/ICD, Hx Peripheral Vascular Disease Respiratory History: Reports: Hx Asthma, Hx Chronic Obstructive Pulmonary Disease (COPD), Other Respiratory Problems/Disorders - emphysema Denies: Hx Sleep Apnea GI History: Reports: Hx Cirrhosis, Hx Gastroesophageal Reflux Disease, Hx Gastrointestinal Bleed, Hx Hiatal Hernia - s/p repair, Hx Ulcer, Other GI Disorders - HELICOBACTER INFECTION History: Reports: Hx Chronic Renal Failure - Stage 3, Hx Renal Disease, Other Problems/Disorders - CKD stage 3 Musculoskeletal History: Reports: Hx Arthritis, Hx Back Problems, Other Musculoskeletal History - spinal stenosis Sensory History: Reports: Hx Cataracts - surgery with implants bilat eyes 96, Hx Contacts or Glasses - reading Denies: Hx Glaucoma, Hx Deafness, Hx Hearing Aid Opthamlomology History: Reports: Hx Cataracts - surgery with implants bilat eyes 96, Hx Contacts or Glasses - reading Denies: Hx Glaucoma Neurological History: Reports: Other Neuro Impairments/Disorders - vertigo Denies: Hx Headaches, Hx Seizures, Hx Transient Ischemic Attacks (TIA) Psychiatric History: Reports: Hx Anxiety, Hx Depression, Other Psychiatric Issues/Disorders - PT REPORTS"STRESS" AND SAYS HER MD GAVE HER A MED FOR IT, UNSURE WHAT Denies: Hx Panic Disorder - Cancer History Hx Chemotherapy: No Hx Radiation Therapy: No Hx Palliative Cancer Treatment: No - Surgical History Surgery Procedure, Year, and Place: HERNIA REPAIR;. HYSTERECTOMY;. B/L CATERACTS;. B/L CARPAL TUNNEL;. CYSTS REMOVED FROM BILATERAL ARMPITS;. RTC RT ;. LT FOOT SURGERY Hx Anesthesia Reactions: No - Immunization History Date of Tetanus Vaccine: > 10 yers Date of Influenza Vaccine: [id number] Infectious Disease History: Denies: Hx Clostridium Difficile, Hx Hepatitis, Hx Human Immunodeficiency Virus (HIV), Hx of Known/Suspected MRSA, Hx Shingles, Hx Tuberculosis, History Other Infectious Disease, Traveled Outside the [place] in Last 30 Days - Family History Known Family History: Positive: Diabetes, Other - Yes - CHF (Mother) - Social History Alcohol Use: None Hx Substance Use: No Substance Use Type: Reports: None Hx Tobacco Use: Yes Smoking Status (MU): Former Smoker Type: Cigarettes Have You Smoked in the Last Year: No Review of Systems - ROS Summary Review of Systems Summary: Home Medications Medication Instructions Recorded Confirmed Type Carvedilol TAB* [Coreg TAB*] 25 mg PO BID 09/13/16 08/07/19 History Levothyroxine TAB* [Synthroid 25 25 mcg PO DAILY 09/13/16 08/07/19 History MCG TAB*] Simvastatin TAB(NF) [Zocor 20 MG 20 mg PO DAILY 09/13/16 08/07/19 History (NF)] Nystatin TOP POWDER* 1 applic TOPICAL BID PRN 10/11/16 08/07/19 History Triamcinolone 0.1% CREAM (NF) 1 applic TOPICAL DAILY PRN 10/11/16 08/07/19 History [Kenalog 0.1% Cream (NF)] Cyanocobalamin TAB* [Vitamin B12 100 mcg PO DAILY 10/02/18 08/07/19 History TAB*] Insulin NPH Human Isophane 25 units SUBCUT QPM 01/05/19 08/07/19 History [Humulin N Kwikpen 100 units/ml 3 ml x 5 Pens] Losartan TAB* [Cozaar TAB*] 50 mg PO DAILY 01/05/19 08/07/19 History Omeprazole CAP (NF) [Prilosec CAP* 20 mg PO BID 01/05/19 08/07/19 History 20 MG] Spironolactone (NF) 50 mg PO QAM 01/05/19 08/07/19 History [Spironolactone 50 MG (NF)] Multivitamins/Minerals TAB* 1 tab PO DAILY 01/09/19 08/07/19 History [Theragran/minerals TAB*] oxyCODONE TAB* [Roxycodone TAB 5 2.5 - 5 mg PO Q6H PRN 01/09/19 08/07/19 History mg*] Potassium Chlor TAB* [Potassium 20 meq PO DAILY #30 tab.er 04/20/19 08/07/19 Rx Chlor TAB 20 MEQ*] Tiotropium CAPSULE (NF) [Spiriva 1 cap.inh INH DAILY 05/11/19 08/07/19 History CAPSULE (NF)] Albuterol Sulfate 1.25 mg INH Q4H PRN 07/09/19 08/07/19 History Bumetanide TAB* [Bumex 2 MG TAB*] 2 mg PO DAILY 07/09/19 08/07/19 History Ferrous Gluconate TAB* [Fergon 324 mg PO BID 07/09/19 08/07/19 History TAB*] Insulin REGULAR(*) [Insulin 30 units SUBCUT .AT LUNCH & DINNER 07/09/19 History REGULAR 100 units/ml 3 ml VIAL (*)] Insulin REGULAR(*) [Insulin 35 units SUBCUT .AT BREAKFAST 07/09/19 08/07/19 History REGULAR 100 units/ml 3 ml VIAL (*)] Magnesium Chloride EC TAB* [Slow 71.5 mg PO DAILY 07/09/19 08/07/19 History Mag EC TAB*] Metformin ER (NF) 500 mg PO BID 07/09/19 08/07/19 History Terazosin CAP* [Hytrin CAP 5 MG*] 10 mg PO BEDTIME 07/09/19 08/07/19 History Nitroglycerin TAB 0.4 MG* 0.4 mg SL Q5M PRN MDD 3 tabs in 15 07/12/19 08/07/19 History min Spironolactone TAB* [Aldactone TAB 25 mg PO QPM 07/12/19 08/07/19 History 25 MG*] Neurological/Mental Status: Other - positive - decreased responsiveness All Other Systems Reviewed And Are Negative: No - Comments Additional Review of Systems Comments: level 5 caveat secondary to AMS Physical Exam - Summary Physical Exam Summary: General: Well-developed, Well-nourished female. No acute distress. somnolent HEENT: Normocephalic, Atraumatic. Eyes: Conjuctiva normal, PERRL. Oropharynx: Clear, mucous membranes moist, (-) exudates. Neck: Soft, FROM, (-) lymphadenopathy, (-) thyromegaly, (-) JVD. Cardiovascular: Normal sinus rhythm, (-) murmur. Lungs: Clear to auscultation bilaterally (-) wheezes, (-) rales, (-) rhonchi. Abdomen: Soft, non-tender, non-distended, (-) organomegaly, normal bowel sounds. Back: (-) CVA tenderness Extremities: No edema. Skin: Warm, dry, (-) rash. Neuro: Alert but not oriented, patient is arousable to voice and follows commands. Moves all extremities equally. No ataxia. No gait disturbance. No sensory deficit. Normal strength, normal sensation. Psychiatric: Mood normal, affect normal. Triage Information Reviewed: Yes Vital Signs On Initial Exam: Initial Vitals Pulse Resp Pulse Ox 84 12 97 08/07/19 00:48 08/07/19 00:48 08/07/19 00:48 Vital Signs Reviewed: Yes Procedures - Sedation Patient Received Moderate/Deep Sedation with Procedure: No Diagnostics - Vital Signs Vital Signs Temp Pulse Resp BP Pulse Ox 08/07/19 01:18 83 10 191/117 100 08/07/19 01:01 83 16 100 08/07/19 00:59 82 16 178/85 100 08/07/19 00:49 98.2 F 85 21 190/100 95 08/07/19 00:48 84 12 97 - Laboratory Result Diagrams: 08/14/19 05:26 08/14/19 05:26 Lab Statement: Any lab studies that have been ordered have been reviewed, and results considered in the medical decision making process. - EKG 0244 Cardiac Rate: NL - rate of 89 BPM EKG Rhythm: Sinus Rhythm Summary of EKG Findings: EKG showed NSR with rate of 89 BPM, no STEMI. ED physician has reviewed and interpreted this EKG. Altered Mental Statu Course/Dx - Course Course Of Treatment: 78-year-old female presents from home by ambulance for unresponsiveness. History is given by . Since the patient started shaking while they were in bed about an hour ago. Patient has not been responsive since then. she doesn't think she took her insulin shot before bed tonight. Not sure what her sugars have been through the day. Patient is fairly noncompliant with her medications and frequently has elevated blood sugars. Found to have elevated blood sugar today. patient unable to give history. Physical exam shows no acute abnormalities. Workupshows a normal anion gap. Blood sugar too high to read. Sugar in urine but not ketones.patient given multiple doses of insulin subcutaneous and IV for sliding scale and her regular doses of insulin. also given IV fluids and potassium.PH remained normal but unable to decrease blood sugar. Patient eventually referred to the hospitalist for admission. - Diagnoses Provider Diagnoses: Diabetes mellitus with hyperglycemia - Provider Notifications Discussed Care Of Patient With: Stacie Lutz Time Discussed With Above Provider: 07:07 Instructed by Provider To: Other - Patient's case was discussed with Dr. Lutz , patient to be started on insulin drip and will be admitted by ICU attending, Dr. Meza. Discharge ED - Sign-Out/Discharge Documenting (check all that apply): Patient Departure - admit - Discharge Plan Condition: Fair Disposition: ADMITTED TO [facility] - Billing Disposition and Condition Condition: FAIR Disposition: Admitted to [facility] - Attestation Statements Document Initiated by Scribe: Yes Documenting Scribe: ALFREDO MARLEY Provider For Whom Vitaliy is Documenting (Include Credential): LYNDON STEWART MD Scribe Attestation: ALFREDO Benitez, scribed for LYNDON STEWART MD on 08/14/19 at 2020. Scribe Documentation Reviewed: Yes Provider Attestation: The documentation as recorded by the ALFREDO puri accurately reflects the service I personally performed and the decisions made by me, LYNDON STEWART MD Status of Scribe Document: Viewed
[2019-08-07 02:02] LABS: INR 1.16 (0.82-1.09)
[2019-08-07 02:05] LABS: Albumin 3.4 g/dL (3.2-5.2); Anion Gap 10 mmol/L (2-11); CO2 Carbon Dioxide 29 mmol/L (22-32); Calcium 8.2 mg/dL (8.6-10.3); Chloride 95 mmol/L (101-111); Potassium 4.4 mmol/L (3.5-5.0); Sodium 134 mmol/L (135-145)
[2019-08-07 02:09] LABS: Hematocrit 30 % (35-47); Mean Corpuscular HGB Conc 30 g/dL (31-36); Mean Corpuscular Hemoglobin 24 pg (27-31); Mean Corpuscular Volume 79 fL (80-97); Red Blood Count 3.77 10^6 /uL (3.70-4.87); Red Cell Distribution Width 22 % (10-15); White Blood Count 4.2 10^3/uL (3.5-10.8)
[2019-08-07 02:10] LABS: ABS Eosinophils 0.2 10^3/ul (0-0.6); ABS Lymphocytes 0.6 10^3/ul (1.0-4.8); ABS Monocytes 0.3 10^3/ul (0-0.8); ABS Neutrophils 3.1 10^3/ul (1.5-7.7); Eosinophil % 3.8 %; Lymphocyte % 13.6 %
[2019-08-07 02:11] LABS: ALT 32 U/L (7-52); AST 48 U/L (13-39); Albumin/Globulin Ratio 0.8 (1-3); Alkaline Phosphatase 335 U/L (34-104); Blood Urea Nitrogen 35 mg/dL (6-24); C Reactive Protein 3.83 mg/L (<8.01); EGFR Non-African American 34.7 (>60); Globulin 4.3 g/dL (2-4); Total Protein 7.7 g/dL (6.4-8.9)
[2019-08-07 02:14] LABS: Glucose 614 mg/dL (70-100); Glucose Confirmatory 614 mg/dL (70-100)
[2019-08-07] MEDS ORDERED: Insulin REGULAR(*) 1 UNITS UNIT IV PUSH ONE (02:22)
[2019-08-07 02:43] LABS: Troponin I 0.02 ng/mL (<0.03)
[2019-08-07 02:49] LABS: Alcohol < 10 mg/dL (<10)
[2019-08-07 02:58] LABS: Urine Benzodiazepine Screen None Detected (None Detect); Urine Opiates Screen None Detected (None Detect)
[2019-08-07] MEDS ORDERED: NS 0.9% w/ 20 Meq KCL 1000 ML* 1,000 ML IV ONE (03:00)
[2019-08-07 03:41] LABS: Mean Platelet Volume 12.2 fL (7.4-10.4); Platelet Count 122 10^3/uL (150-450)
[2019-08-07] MEDS ORDERED: Insulin GLARGINE(*) 1 UNITS UNIT SUBCUT ONE ×2 (04:12→04:41)
[2019-08-07 04:32] LABS: Urine Appearance Cloudy; Urine Bilirubin Negative (Negative); Urine Blood Negative (Negative); Urine Color Yellow; Urine Glucose 3+(>=500 mg/dL) (Negative); Urine Ketones Negative (Negative); Urine Nitrite Negative (Negative); Urine Protein Negative (Negative); Urine Specific Gravity 1.009 (1.010-1.030); Urine Urobilinogen Negative (Negative)
[2019-08-07] MEDS ORDERED: Insulin REGULAR(*) 1 UNITS UNIT SUBCUT ONE ×2 (04:44→06:06)
[2019-08-07 04:54] LABS: Calcium 7.9 mg/dL (8.6-10.3)
[2019-08-07 04:58] LABS: Urine Bacteria Absent (Absent); Urine Red Blood Cell 1+(3-5/hpf) (Absent); Urine Squamous Epithelial Cell Present (Absent); Urine White Blood Cell 2+(11-20/hpf) (Absent)
[2019-08-07 05:00] LABS: BUN/Creatinine Ratio 23.5 (8-20); EGFR African American 45.6 (>60); EGFR Non-African American 37.7 (>60)
[2019-08-07 06:02] LABS: Calcium 7.7 mg/dL (8.6-10.3); EGFR African American 50.3 (>60); EGFR Non-African American 41.6 (>60); Potassium 4.4 mmol/L (3.5-5.0)
[2019-08-07] MEDS ORDERED: Insulin Infusion 100unit/100mL 100 UNIT/100 ML BAG IV ONE (07:10)
--- NOTE | 2019-08-07 07:21 | ED ---
Progress - Progress Note Progress Note: At 07:18, Dr. Davie Meza recommends not starting an insulin drip at this time. At 07:46, Dr. Davie Meza evaluated the patient and states the patient is awake and able to give a full history, so patient is not appropriate for the ICU. He will consult the hospitalist. Course/Dx - Diagnoses Provider Diagnoses: Diabetes mellitus with hyperglycemia - Provider Notifications Discussed Care Of Patient With: Davie Meza MD - At 07:18, Dr. Davie Meza recommends not starting an insulin drip at this time. At 07:46, Dr. Davie Meza evaluated the patient and states the patient is awake and able to give a full history, so patient is not appropriate for the ICU. He will consult the hospitalist. Time Discussed With Above Provider: 07:18 Instructed by Provider To: Other - Patient's case was discussed with Dr. Lutz , patient to be started on insulin drip and will be admitted by ICU attending, Dr. Meza. Discharge ED - Sign-Out/Discharge Documenting (check all that apply): Patient Departure - Admit - Discharge Plan Condition: Fair Disposition: ADMITTED TO [facility] - Billing Disposition and Condition Condition: FAIR Disposition: Admitted to [facility] - Attestation Statements Document Initiated by Scribe: Yes Documenting Scribe: Ayesha Becerra Provider For Whom Vitaliy is Documenting (Include Credential): Tad Wilcox MD Scribe Attestation: Ayesha Benitez, scribed for Tad Wilcox MD on 08/15/19 at 1103. Scribe Documentation Reviewed: Yes Provider Attestation: The documentation as recorded by the Ayesha puri accurately reflects the service I personally performed and the decisions made by me, Tad Wilcox MD Status of Scribe Document: Viewed
[2019-08-07] MEDS ORDERED: Nystatin TOP POWDER* 15 GM BTL TOPICAL PRN (08:28)
[2019-08-07] MEDS ORDERED: Albuterol 2.5 MG/3 ML NEB.SOL* (0.083%) INH PRN (08:28)
[2019-08-07] MEDS ORDERED: Triamcinolone 0.025% OINT * 15 GM TUBE TOPICAL PRN (08:28)
[2019-08-07] MEDS ORDERED: Nitroglycerin TAB 0.4 MG* 0.4 MG TAB SL PRN (08:28)
[2019-08-07] MEDS ORDERED: LORazepam INJ* 2 MG/ML 1 ML VIAL IV PUSH PRN (08:40)
[2019-08-07] MEDS ORDERED: Lorazepam PYXIS KEY PRN (08:40)
[2019-08-07 08:56] LABS: Creatine Kinase 63 U/L (10-223)
[2019-08-07 09:13] LABS: TSH (Thyroid Stimulating Horm) 16.57 mcIU/mL (0.34-5.60)
[2019-08-07 09:18] LABS: Prolactin 19.3 ng/mL (1.0-25.0)
[2019-08-07] MEDS: Insulin LISPRO* 1 UNITS UNIT SUBCUT SCH ×8 (09:18→23:54)
[2019-08-07] MEDS ORDERED: levETIRAcetam 500 MG IVPREMIX* 500 MG/100 ML BAG IVPB ONE (09:47)
[2019-08-07] MEDS ORDERED: Insulin REGULAR(*) 1 UNITS UNIT SUBCUT SCH (12:00)
--- NOTE | 2019-08-07 12:14 | HP ---
CC: Dr. Moyer HISTORY AND PHYSICAL: DATE OF ADMISSION: 08/07/19 PRIMARY CARE PROVIDER: Dr. Moyer. TIME OF EVALUATION: 8 a.m. CHIEF COMPLAINT: "She was having spasm as per ." HISTORY OF PRESENT ILLNESS: Mrs. Hansen is a 78-year-old female with a complex past medical history that includes type 2 diabetes; obesity with a BMI of 30; liver cirrhosis secondary to HUERTA with neisha l hypertension, gastropathy, and esophageal varices; duodenal AVMs with chronic GI bleed requiring in termittent blood transfusions; nonischemic cardiomyopathy with ejection fraction of 45% to 50%; COPD, on 2 L of oxygen; hypertension; CKD, stage III; iron deficiency anemia; spinal stenosis; hyperlipide elida; hypothyroidism, who presented to the emergency room after having "spasms" at home. The history is obtained from the patient and her at bedside. The patient was admitted to [facility] on 07/12/19 with complaints of left arm cramping. At that time, she w as admitted for the possibility of a TIA and she was also found to have uncontrolled diabetes with a glucose of 695. At that time, she had not taken her night dose insulin. The patient was seen in consultation by Neurology (Dr. Samayoa) and he did not think that her episode of left hand cramping and her head going to the right represented a stroke. He thought it could be secondary to metabolic abnormalities, but he also thought it was possible that it could represent a s eizure. She had an MRI of the brain without contrast that showed no restriction of diffusion only ch ronic ischemic white matter change and age-appropriate atrophy. An awake EEG showed no epileptiform potentials or other major abnormalities. She states that yesterday she was feeling in her usual state of health and she thinks she took all he r medications I prescribed during the day. She states that near midnight she sat down to watch TV an d the next thing she remembers is being in the emergency room. Her states that she sat down and then she started to have "spasms" on her whole body and pass ed out. He does not know exactly how long the episode last, but he called her name, tried to wake he r up, and she was not responding, he called 911 and the patient was brought into the emergency room f or further evaluation. As per the ED provider note, the patient had decreased responsiveness and altered mental status. At time of evaluation, she was alert, but not oriented. The patient does not recall taking her evening dose of insulin last night. She denies headache, chil ls, fever, nausea, vomiting, diarrhea, or urinary complaints. At the time of my evaluation, the patient is alert, awake, oriented x3. Her states that she is still "sluggish," but definitely looks better. The patient was alert and awake and able to provid e history as described above. PAST MEDICAL HISTORY: 1. Type 2 diabetes with diabetic neuropathy and diabetic nephropathy. 2. Obesity with a BMI of 31. 3. Liver cirrhosis likely secondary to HUERTA with portal hypertension gastropathy, and esophageal kerrie ices. 4. Duodenal AVMs with chronic GI bleed that requires intermittent blood transfusions. 5. Nonischemic cardiomyopathy with ejection fraction of 45% to 50%. 6. Diastolic congestive heart failure. 7. COPD on chronic home O2 oxygen, on 2 L. 8. Hypertension. 9. CKD, stage III. 10. Iron deficiency anemia. 11. Spinal stenosis. 12. Hyperlipidemia. 13. Hypothyroidism. 14. History of adrenal gland cyst. 15. Vertigo. PAST SURGICAL HISTORY: 1. Status post hysterectomy. 2. Status post hernia repair. 3. Status post carpal tunnel syndrome. 4. Status post foot surgery. 5. Status post rotator cuff surgery. 6. Status post cataract surgery. MEDICATION LIST: 1. Albuterol sulfate 1.25 mg q.4 hours p.r.n. shortness of breath and wheezing. 2. Bumetanide 2 mg p.o. daily. 3. Coreg 25 mg p.o. b.i.d. 4. Vitamin B12 100 mcg p.o. daily. 5. Ferrous gluconate 225 mg p.o. b.i.d. 6. Insulin NPH 25 units subcutaneously at bedtime. 7. Regular insulin 35 units subcutaneously at breakfast, 30 units at lunch and dinner. 8. Levothyroxine 25 mcg p.o. daily. 9. Losartan 50 mg p.o. daily. 10. Magnesium chloride 71.5 mg p.o. daily. 11. Metformin ER 500 mg p.o. b.i.d. 12. Multivitamins 1 tablet p.o. daily. 13. Nitroglycerin 0.4 mg sublingual q.5 minutes p.r.n. chest pain, maximum 3 doses. 14. Nystatin powder topical b.i.d. as needed for rash. 15. Omeprazole 20 mg p.o. b.i.d. 16. Oxycodone 2.5 to 5 mm p.o. q.6 hours p.r.n. pain. 17. Potassium chloride 20 mEq p.o. daily. 18. Simvastatin 20 mg p.o. daily. 19. Spironolactone 50 mg p.o. in the morning, 25 mg p.o. at bedtime. 20. Terazosin 10 mg p.o. at bedtime. 21. Spiriva 1 capsule inhaled daily. 22. Triamcinolone 0.1% cream topical daily as needed for rash. ALLERGIES: CAPTOPRIL, the patient had hives. FAMILY HISTORY: Mother had a history of heart disease and diabetes. SOCIAL HISTORY: The patient was a smoker of 3 packs a day for 25 years and she quit in 2001, no hist ory of alcohol or drug use. 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 Surrogate decisi on maker is her , Jimmie Hansen, phone number is [phone]. REVIEW OF SYSTEMS: A 14-point review of system was performed and all the pertinent negative and posi tive findings are in the HPI. PHYSICAL EXAMINATION GENERAL: The patient is elderly lady, lying in ED stretcher, in no acute distress. VITAL SIGNS: Temperature 97.7, heart rate is 73, respiratory rate is 20, oxygen saturation is 100% o n 2 L nasal cannula, blood pressure is 166/69. HEENT: Pupils are equal. Moist mucous membranes. CHEST: Breath sounds bilaterally distant with no added sounds. CVS: Normal S1, S2. Regular rate and rhythm. ABDOMEN: Protuberant, soft, nontender, nondistended. Bowel sounds are present in all 4 quadrants. There is no guarding, no rebound. EXTREMITIES: The patient has chronic bilateral lower extremity edema with chronic ischemic changes a nd some weeping of clear fluid. NEURO: The patient is resting, eyes closed in the ED stretcher, but easily arousable. When alert lisa graf is awake and oriented x3. Her speech is clear. Face is symmetric. Cranial nerves II through XII are grossly intact. She is able to move all 4 extremities. Strength is 4/5 in all 4 extremities. E xtraocular movements are intact. DIAGNOSTIC STUDIES/LAB DATA: The patient had a CBC that showed WBC of 4.2, hemoglobin of 9, hematoc rit of 30, platelets of 122 with 75% neutrophils. INR is 1.1. VBG showed a pH of 7.36, pCO2 59, pO2 of 43, bicarb of 29, oxygen saturation 74%. Initial chemistries showed sodium of 134, potassium of 4.4, chloride of 95, bicarb of 29, BUN of 35, creatinine 1.46, glucose of 614, lactic acid is 2.4, ca lcium is 8.2. LFTs showed total bilirubin 0.7, AST of 48, alk phos of 335. CPK was 63. Troponin 0. 02. She had multiple other chemistries checked in the emergency room in her last glucose at 8:49 was 405. Urinalysis showed trace LE, 2+ WBCs, 1+ RBC. Epithelial cells were present, glucose 3+. Urine toxicology was negative and serum alcohol level was less than 10. EKG done on 08/07/19 at 2:42 a.m. showed sinus rhythm at 89 beats per minute with no acute ischemic c hanges, no significant change when compared to her prior EKG from 07/31/19. Chest x-ray showed stigmata of obstructive lung disease, no acute pulmonary or cardiac process was ev ident. ASSESSMENT AND PLAN: Mrs. Hansen is a 78-year-old female with a complex past medical history that in cludes type 2 diabetes with nephropathy and neuropathy; obesity with a BMI of 31; liver cirrhosis wit h portal hypertension, gastropathy, and esophageal varices as well as duodenal arteriovenous malforma tion with chronic gastrointestinal bleed; iron deficiency anemia requiring intermittent blood transfu sions; nonischemic cardiomyopathy with ejection fraction 45% to 50%; chronic obstructive pulmonary di sease, on home O2; hypertension; chronic kidney disease, stage III; spinal stenosis; hyperlipidemia; hypothyroidism, who presented to the emergency room after an episode of "spasms" and unresponsiveness with altered mental status that likely represents a generalized seizure problem. 1. Probable seizure. Combining the information from her prior admission in June and her presenta tion now, I suspect the patient probably had a partial seizure in June and now had a generalized s eizure. Neurology consultation was requested with Dr. Mcdonald. She will have a repeat EEG. She will be placed o n seizure precautions and she will have lorazepam IV as needed for recurrent seizures, but await for Neurology opinion before starting any antiepileptic drugs. We will request a CT of the brain without contrast, but I do not think a repeat MRI is necessary at t his point. We will wait Neurology input first. As she presented with altered mental status, we will also check a TSH, prolactin, and ammonia levels, but I think the issue at this time was probably a generalized seizure. 2. Uncontrolled diabetes. This appears to be a chronic issue. The patient is not sure if she took her insulin last night. Her last hemoglobin A1c was 7.9 in April 2019. We will repeat it now to see if it is trending up and her glucose is chronically uncontrolled or if she just has spikes when s he has other issues happening. The patient received multiple doses of Lantus and regular insulin in the emergency department and [facility] the plan was for the patient to be started on an insulin drip, but at that time her sugar was already coming down in the low 400s, so we are just going to continue fingersticks with a lispro slid ing scale and resume her usual regimen of regular and NPH insulin and we will continue to monitor it closely. She received 3 L of fluids in the emergency room and she already has edema and weeping from her legs, so I do not think further IV hydration is necessary at this point. 3. Abnormal urinalysis. The patient has no urinary complaints. Her UA showed trace LE, 2+ wbc's, b ut also squamous epithelial cells, so I think there may have been a matter with the urine collection. I will not start antibiotics at this time, but I will request another urinary sample as she is aler t and awake now and may be able to collect a better specimen. 4. Chronic anemia. Her hemoglobin is improved from her prior admission in June. 5. Mild lactic acidosis. Likely secondary to seizure and metformin use. We will repeat her lactic acid. The patient has no signs of infection at this time and this lactic acidosis is not related to sepsis. 6. Liver cirrhosis. The patient will be continued on her usual medications including her diuretics. 7. Congestive heart failure. Appears to be stable at this time. We will continue her usual medicat ions. 8. Hypothyroidism. We will check a TSH and continue her usual levothyroxine dose. 9. Chronic kidney disease, stage III. The patient's creatinine is at baseline. 10. DVT prophylaxis. The patient has a score of 5 with a DVT prophylaxis Risk Assessment Guide. Wi th her issues with chronic gastrointestinal bleed pharmacological prophylaxis is contraindicated. We will place SCDs as tolerated taking in consideration her lower extremity edema. 11. Code status is full. TIME SPENT: Approximately 70 minutes was spent with patient and interview, medical records r stephanie, physical examination to complete this admission, more than half of this time was spent face-to -face with the patient in coordination of care. [id number]/[facility] #: [id number]
--- NOTE | 2019-08-07 12:39 | CONS ---
CC: Dr. Neena Moyer; Dr. Horton; Dr. Marcial; Dr. Samayoa * CONSULTATION REPORT: DATE OF CONSULT: 08/07/19 CURRENT LOCATION: ED, bed 15. PRIMARY CARE PROVIDER: Dr. Neena Moyer. REASON FOR CONSULTATION: Suspected seizure. HISTORY OF PRESENT ILLNESS: Ms. Hansen is a very nice 78-year-old female with a history of multiple medical problems including insulin-dependent diabetes type 2, poorly controlled; portal hypertension and varices secondary to liver cirrhosis, which is nonalcoholic in nature; history of duodenal AVMs with chronic GI bleeding, needing intermittent blood transfusions and iron, last reported transfusion was in May; nonischemic cardiomyopathy; COPD, on chronic oxygen; chronic kidney disease stage 3; hypertension; iron deficiency anemia; history of spinal stenosis and neuropathy; history of hypothyroidism; adrenal cyst; vertigo; hyperlipidemia; and obesity. She was recently hospitalized back on 07/12/19. At that time, she presented with uncontrolled diabetes and also noted some cramping in her left arm and hand. She also noted some numbness in her hand at that time. Upon further questioning today, she states that she has been having these episodes of cramping in her left hand that had been ongoing for years, but typically happened very infrequently. She reports having had an infusion of Feraheme and Sandostatin last month and she feels like since that infusion the hand cramping has become much worse. In the hospital at her last visit, she was evaluated by Dr. Samayoa. A stroke workup was done, which was negative. She had an MRI of the brain that showed no acute infarcts. She had a CTA of the head and neck, which showed no hemodynamically significant stenosis of the carotid arteries or vertebral arteries, multinodular thyroid gland was noted, and a large right pleural effusion noted. She did have calcification of the right carotid siphon and proximal stenosis of the sigmoid sinus with luminal diameter of 1.5 mm, represents 55% stenosis and calcification of the left carotid siphon. No intracranial stenosis was appreciated. She had an echocardiogram done as well and is followed for nonischemic cardiomyopathy. It showed an ejection fraction of 45% to 50%, no patent foramen ovale was identified with bubble study. She did have an EEG done as well. There was some concern given the nature of these symptoms that it could be related to underlying seizure, focal or complex partial seizure activity, although the patient denies any changes in her consciousness or mentation during these episodes and is fully aware of them. The EEG did not show any evidence of seizure- like activity. Based on all of this, it was felt that she might be having seizures, but with a lack of any strong evidence no medication was started as the semiology was very unclear. In addition, it was felt that this was likely not TIA related given the history of multiple episodes and the nature of the episodes. She was not started on any antiplatelet medication due to her history of chronic bleeding. Over the last month, she has continued to have these episodes with her left hand cramping. She states that she is unable to control it, but she is very aware of it. There is no other associated symptoms at that time. She does have chronic numbness and tingling in her hands and feet bilaterally from her diabetic neuropathy. At 1 a.m. this morning, her noted that she was in her recliner when she started to have what sounds like generalized tonic-clonic activities with some stiffening and then shaking and this lasted for a few minutes. She was confused afterwards. She is incontinent of urine at baseline , but apparently was incontinent of urine. She has a very poor dentition and notes that her gums are sore, but no tongue biting. She was brought to the ER, and in the ER, was noted to have a blood sugar in the 400s. She thinks that she missed her medication last night and notes that her blood sugars have been very poorly controlled over the last few months despite the fact that she has had medication changes. She denies getting low and she had no sweating, nausea , vomiting associated with this. She does report that she had been eating and drinking without any major changes. Based on the changes in her mental status and possible seizure activity as well as her blood sugars, she is being admitted to the hospital for further evaluation. When she was first brought to the ER, she was confused but currently she is alert and oriented x3 and seems to be back to her baseline. At baseline, she notes that she is unable to walk without a walker and has chronic lower extremity neuropathy as well as swelling. She notes no prior history of seizures that she is aware of, no history of seizures when she was a child, no family history of seizures that she is aware of, no history of head trauma, no history of meningitis and she knows of no problems. PAST MEDICAL HISTORY: As noted above. She does follow with Dr. Marcial for a history of the duodenal AVMs and recently received a new infusion of Sandostatin for these. PAST SURGICAL HISTORY: Includes hysterectomy, hernia repair, carpal tunnel surgery in the past, foot surgery, rotator cuff surgery, and cataracts. MEDICATIONS: She is on a long list of medications. Please see the computer for a complete listing of her outpatient medications, but she is on: 1. Bumetanide 2 mg daily. 2. Albuterol q.4 hours p.r.n. 3. Metformin 500 mg p.o. b.i.d. 4. Magnesium chloride 71.5 daily. 5. Losartan 50 mg daily. 6. Levothyroxine 25 mcg daily. 7. Insulin sliding scale. 8. Insulin NPH. 9. Ferrous gluconate 324 b.i.d. 10. Vitamin B12 100 mcg daily. 11. Carvedilol 25 mg p.o. b.i.d. 12. Ipratropium 1 inhalation daily. 13. Terazosin 10 mg p.o. at bedtime. 14. Spironolactone 25 mg at bedtime. 15. Spironolactone 50 mg in the morning. 16. Simvastatin 20 mg daily. 17. Potassium chloride tablets 20 mEq daily. 18. Omeprazole 20 mg p.o. b.i.d. 19. Nystatin powder. 20. Nitroglycerin as needed. 21. Multivitamin. 22. Oxycodone 2.5 to 5 mg q.6 hours p.r.n. 23. Triamcinolone cream. FAMILY HISTORY: Again, negative for any seizure history. She has a mother with heart disease and diabetes. SOCIAL HISTORY: She was a heavy smoker in the past, quit in 2001, she was smoking 3 packs a day. She denies any current alcohol or drug use. She worked at [employer]. is at the bedside, Alejandro Hansen who is her surrogate decision maker. REVIEW OF SYSTEMS: Review of systems in 14-organ systems as noted above. PHYSICAL EXAM: Vital Signs: Blood pressure 170/69 to 149/58 to 166/79, O2 saturation 100% on oxygen, respiratory rate 16 to 21 resps per minute, pulse of 69 to 73, she is afebrile. In general, she is a well-nourished, well-developed , obese female, lying in her hospital bed. is at the bedside. She is well dressed, well groomed. HEENT: She is normocephalic, atraumatic. Sclerae are anicteric. Mucous membranes are moist. She has poor dentition. Neck is supple. No thyromegaly or carotid bruits. No meningismus. Chest: Clear to auscultation bilaterally. Cardiovascular: Regular rate and rhythm without murmurs, gallops, or rubs appreciated. Abdomen: Obese, nontender. Extremities : There is no clubbing or cyanosis. She does have 2+ edema in the lower extremities to the shins bilaterally with chronic skin changes. On neurologic examination, she is awake, alert, and oriented x3. Her speech is fluent. There is no dysarthria. Repetition is intact. Her recall is somewhat impaired around the time of the event. Cranial Nerves: Her pupils are equally round and reactive to light and accommodation. Extraocular muscles are intact. There is no nystagmus, diplopia, or ptosis appreciated. Her facial sensation is intact. Face is symmetric. Palate raises symmetrically. Tongue is midline. Her hearing is intact bilaterally. Motor Exam: She spontaneously moves all extremities antigravity. She has good strength in the upper extremities 5/5 throughout proximally; in the lower extremities, she is 4/5. Able to lift her legs off the bed, but not sustain and she does give some resistance. Distally, she is 4+/5. Tone is normal. Bulk appears normal. Sensation: She has loss of all modalities in the hands and the feet to the shins bilaterally. This is chronic in nature. [id number] and rapid alternating movements are intact without dysmetria. DTRs are absent in the upper and lower extremities, absent at the ankles, equivocal Babinski's. Gait cannot be tested at this time, but the patient ambulates with a walker. DIAGNOSTIC STUDIES/LAB DATA: Lab work includes a CBC with diff with a hemoglobin of 9, hematocrit of 30, platelet count of 122. INR of 1.16. Blood gases: 7.38 pH, pCO2 of 51, pO2 of 42, bicarb of 27.3. Chemistry with a blood glucose of 405, lactic acid of 2.4. Ammonia of 126. Her baseline ammonia has been 65 in August 2018, 76 in October of 2018, and then 126 today. Initial glucose on admission was 614, calcium of 8.2, alk phos of 335, AST of 48, ALT of 32, TSH of 16.57, prolactin of 19.3. Urine: Trace leukocyte esterase, 2+ white blood cells, glucose 3+. Opiate screen negative. Alcohol less than 10. She did have a CT of the brain done today, which shows no acute abnormality and some mild chronic small vessel ischemic disease. ASSESSMENT AND PLAN: Ms. Hansen is a 78-year-old female with multiple significant medical problems including poorly controlled type 2 insulin- dependent diabetes; history of cirrhosis, nonalcoholic in nature with duodenal arteriovenous malformations; history of diabetic neuropathy; history of hand cramping, this has been ongoing for years, but most recently has been happening frequently after her last injection of Sandostatin. She presents with what sounds like a generalized tonic-clonic seizure today. The semiology is clear. Upon my review of the medications Sandostatin and Feraheme, I see no noted association with seizures. With that said, she has noticed worsening of her hand cramping in the last month since her injection and she is concerned that the medication may have caused this. I suspect that she has a lowered seizure threshold, may have had this for some time given the history of the hand cramping, probably was having some focal seizures, which may have generalized this morning. Previous EEG showed no abnormalities. I am going to repeat an EEG, but given the semiology, I do think she needs to be on seizure medication for now as this appears to be an unprovoked seizure. Her creatinine is 1.25 today. I am going to start her on a renally adjusted dose of Keppra 500 mg, I will load her now once IV and then start her on 500 mg p.o. b.i.d. We discussed the risk factors associated with this. I told her that she should not drive, she is not currently driving, no heights, heavy machinery, no swimming alone, no baths, only showers. She does have a bathtub at home, but her is with her at all times. She is being admitted as well for her diabetes control. It may be that the severe hyperglycemia could be lowering her seizure threshold as well given the fact that it has been poorly controlled. She denies any history of recent hypoglycemia. She will be admitted for better glucose control as well and may need some medication adjustment. My suspicion for underlying transient ischemic attack or stroke at this point is low. She did have an MRI done less than a month ago, which showed no evidence of stroke. The presentation is not consistent with a stroke and I do not think we need to repeat a stroke work up at this time. Unfortunately given her duodenal AVMs as well as her anemia, she is not a good candidate for anticoagulation at this time, but my suspicion for stroke is low. We will put her on seizure precautions, get an EEG monitor. She will need followup with Neurology and I would continue her Keppra 500 mg b.i.d. on discharge and we can discuss continuing this medication moving forward, but given her history and concern, I think she will probably need to be on seizure medication. I will continue to follow her and make further recommendations if necessary. Thank you for the opportunity to participate in the care of this very interesting patient. [id number]/[facility] #: [id number]
[2019-08-07] MEDS: CYANOCOBALAMIN 100 MCG TAB PO SCH (12:47)
[2019-08-07] MEDS: Insulin REGULAR(*) 1 UNITS UNIT SUBCUT SCH ×2 (12:54→17:04)
[2019-08-07] MEDS: Ferrous Gluconate TAB* 324 MG TAB PO SCH ×2 (12:55→23:38)
[2019-08-07] MEDS: Atorvastatin* 10 MG TAB PO SCH (12:55)
[2019-08-07] MEDS: Losartan TAB* 25 MG PO SCH (12:55)
[2019-08-07] MEDS: Multivitamins/Minerals TAB PO SCH (12:55)
[2019-08-07] MEDS: Potassium Chlor TAB* 20 MEQ TAB.ER PO SCH (12:56)
[2019-08-07] MEDS: Spironolactone TAB* 25 MG PO SCH ×2 (12:56→17:04)
[2019-08-07] MEDS: Bumetanide TAB* 2 MG PO SCH (12:56)
[2019-08-07] MEDS: Pantoprazole TAB * 40 MG TAB PO SCH ×2 (12:56→23:38)
[2019-08-07] MEDS: SPIRIVA Respimat* (tiotropium) 2.5 mcg/inh Inhaler INH SCH (12:56)
[2019-08-07] MEDS: Carvedilol TAB* 25 MG PO SCH ×2 (12:56→23:43)
[2019-08-07] MEDS: Metformin ER (NF) 500 MG TAB PO SCH ×2 (13:02→23:38)
[2019-08-07 13:27] LABS: Urine Appearance Cloudy; Urine Bilirubin Negative (Negative); Urine Blood Negative (Negative); Urine Color Yellow; Urine Glucose 3+(>=500 mg/dL) (Negative); Urine Ketones Negative (Negative); Urine Nitrite Negative (Negative); Urine Protein 1+(30 mg/dL) (Negative); Urine Specific Gravity 1.009 (1.010-1.030); Urine Urobilinogen Negative (Negative)
[2019-08-07 13:31] LABS: Urine Bacteria Absent (Absent); Urine Red Blood Cell 1+(3-5/hpf) (Absent); Urine Squamous Epithelial Cell Present (Absent); Urine White Blood Cell 3+(>20/hpf) (Absent)
[2019-08-07] MEDS: oxyCODONE TAB* 5 MG TAB PO PRN (13:39)
[2019-08-07] MEDS: Insulin NPH(*) 1 UNITS UNIT SUBCUT SCH (17:04)
--- NOTE | 2019-08-07 19:15 | CONSULT ---
Subjective Date of Service: 08/07/19 Interval History: Ms. 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 She was admitted to the hospital for possible seizures, abnormal UA, and uncontrolled DM. Documented as having a stage 2 pressure injury to her sacrum on admission this morning. She states that she has had an open are to her buttocks for about a month and has been using ointment on the area. She spends a lot of time in a chair at home. Patient seen and examined at bedside. Verbal consent obtained for wound consultation and photograph. Family History: Unchanged from Admission Social History: Unchanged from Admission Past Medical History: Unchanged from Admission Review of Systems - Measurements Intake and Output: Intake and Output Last 24 Hours 08/05/19 08/06/19 08/07/19 08/08/19 06:59 06:59 06:59 06:59 Intake Total 3000 465 Output Total 1000 Balance 1999 465 Weight 195 lb 6.4 oz 202 lb Intake: IV Fluids 3000 100 Oral 365 Output: Urine 1000 Other: Estimated Void Large Medium Date of Last Bowel 08/07/2019 Movement # Bowel Movements 1 Estimated Stool Amount Large - Review of Systems Constitutional Symptoms: Negative: Fever, Other - Chills Dermatology: Positive: Other - Open area to the buttocks Endocrinology: Positive: Obesity, Diabetes Mellitus Objective Active Medications: Albuterol (Ventolin 2.5 Mg/3 Ml Neb.Rachel*) 1.25 mg INH Q4H PRN Reason: SOB/ WHEEZING Atorvastatin Calcium (Lipitor*) 10 mg PO DAILY [facility] Bumetanide (Bumex Tab*) 2 mg PO DAILY [facility] Carvedilol (Coreg Tab*) 25 mg PO BID [facility] Dextrose (D50w Syringe 50 Ml*) 12.5 gm IV PUSH PRN Reason: FS < 60 Ferrous Gluconate (Fergon Tab*) 324 mg PO BID [facility] Insulin Human Lispro (Humalog*) 0 units SUBCUT Q2HR [facility]; Protocol Insulin Human NPH (Insulin Nph(*)) 25 units SUBCUT QPM [facility] Insulin Human Regular (Insulin Regular(*)) 10 units SUBCUT AC [facility] Levetiracetam (Keppra Tab*) 500 mg PO BID [facility] Levothyroxine Sodium (Synthroid Tab*) 25 mcg PO DAILY@0600 [facility] Lorazepam (Ativan Inj*) 1 mg IV PUSH Q4H PRN Reason: Seizure Losartan Potassium (Cozaar Tab*) 50 mg PO DAILY [facility] Metformin HCl (Metformin Er (Nf)) 500 mg PO BID [facility] Multivitamins/Minerals (Theragran/Minerals Tab*) 1 tab PO DAILY [facility] Nitroglycerin (Nitroglycerin Tab 0.4 Mg*) 0.4 mg SL Q5M PRN Reason: ANGINA Cyanocobalamin 100 (Mcg Tab) 1 dose PO DAILY [facility] Magnesium Chloride (Ec 71.5 Mg Tab) 1 dose PO DAILY [facility] Nystatin (Nystatin Top Powder*) 1 applic TOPICAL BID PRN Reason: ITCHING Oxycodone HCl (Roxycodone Tab*) 2.5 mg PO Q6H PRN Reason: Moderate Pain Pantoprazole Sodium (Protonix Tab*) 40 mg PO BID [facility] Potassium Chloride (Klor Con Er Tab*) 20 meq PO DAILY [facility] Spironolactone (Aldactone Tab*) 50 mg PO QAM [facility] Spironolactone (Aldactone Tab*) 25 mg PO QPM [facility] Terazosin HCl (Hytrin Cap*) 10 mg PO BEDTIME [facility] Tiotropium Medora (Spiriva Respimat 2.5 Mcg) 2 puff INH DAILY [facility] Triamcinolone Acetonide (Triamcinolone 0.025% Oint *) 1 applic TOPICAL DAILY PRN Reason: RASH Vital Signs 08/07/19 08/07/19 15:15 15:44 Temperature 97.6 F Pulse Rate 62 Respiratory 20 20 Rate Blood Pressure 122/56 (mmHg) O2 Sat by Pulse 100 Oximetry Oxygen Devices in Use Now: Nasal Cannula Appearance: NAD, laying in bed Ears/Nose/Mouth/Throat: Mucous Membranes Moist Respiratory: Symmetrical Chest Expansion and Respiratory Effort Skin: - - See skin note below Neurological: Alert and Oriented x 3 Nutrition: Taking PO's Result Diagrams: 08/07/19 01:43 08/07/19 05:37 Additional Lab and Data: Laboratory Tests 08/07/19 01:41 Total Protein 7.7 Albumin 3.4 Skin Deviation Note - Skin Deviation Findings Left buttocks - There is a healed open area to the left buttock, measures 5 cm x 2 cm. The area is not open. The surrounding skin is intact. Wound Problem/Plan Assessment: Ms. 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 She was admitted to the hospital for possible seizures, abnormal UA, and uncontrolled DM. Documented as having a stage 2 pressure injury to her sacrum on admission this morning. 1. Left buttock. Healed wound. Recommend frequent turning and repositioning. Use barrier cream as needed. Use a friction reduction device to move in bed. Recommend checking a pre-albumin if she develops another wound. 2. DM2 with CKD. HgA1C was 7.9 in April 2019. Maintain good glycemic control to assist with wound healing. 3. Obesity. BMI 35.8. 4. Nutrition. Consistent Carb diet. 5. Code Status. Full Code Status. 6. Disposition. Inpatient, disposition per primary medicine team. TIME SPENT: Time spent on this wound consultation 20 minutes and 10 minutes was spent with the patient discussing past medical history; assessing, measuring and photographing the area of concern; and applying barrier cream. Attending: Carlee Jacob
[2019-08-07] MEDS: levETIRAcetam TAB* 500 MG PO SCH (23:38)
[2019-08-07] MEDS: Terazosin CAP* 5 MG PO SCH (23:43)
--- NOTE | 2019-08-08 00:18 | EEG ---
ELECTROENCEPHALOGRAPHY: DATE OF STUDY: 08/07/19 - ROOM #450 DATE READ: 08/07/19 ORDERED BY: Dr. Bess. CLINICAL PROBLEM: Ms. James is a 78-year-old female who was brought into the ED via EMS for decreased responsiveness and altered mental state. She appeared to have spasm and had passed out. She is diabetic and her blood sugar was elevated at 444. The patient is now alert, oriented and has no episodes of seizures. This EEG was obtained to evaluate for underlying encephalopathy. MEDICATIONS: 1. Insulin. 2. Oxycodone. 3. Ativan. 4. Albuterol. 5. Aldactone. 6. Simvastatin. 7. Potassium. 8. Metformin. 9. Magnesium. 10. Vitamin B12. 11. Cozaar. 12. Bumetanide. CLINICAL STATE: Awake and drowsiness. REPORT: The background consisted of a mixed frequency slowing in the delta and theta range with appropriate organization and clearly defined anterior- posterior voltage. There was a slow posterior background rhythm of 7 Hz, which was symmetrical and showed normal reactivity. During drowsiness, there was attenuation of the occipital rhythm and attenuation of high amplitude 1-3 Hz delta slowing seen diffusely. When she was alert, there was more of the faster frequency. Hyperventilation and photic stimulation were not performed. Single- electrode EKG showed normal sinus rhythm with a rate of 70 beats per minute. Throughout the recording, there were no epileptiform discharges. CLINICAL IMPRESSION: This is an abnormal EEG due to the presence of diffuse but reactive slowing, and slowing of the posterior dominant rhythm. There findings are suggestive of a nonspecific mild diffuse encephalopathy. [id number]/[facility] #: [id number] [facility]
[2019-08-08] MEDS: Insulin LISPRO* 1 UNITS UNIT SUBCUT SCH ×7 (03:13→20:59)
[2019-08-08] MEDS: Levothyroxine TAB* 25 MCG TAB PO SCH (05:18)
[2019-08-08] MEDS: Potassium Chlor TAB* 20 MEQ TAB.ER PO SCH (07:40)
[2019-08-08] MEDS: Atorvastatin* 10 MG TAB PO SCH (07:40)
[2019-08-08] MEDS: Spironolactone TAB* 25 MG PO SCH ×2 (07:40→18:21)
[2019-08-08] MEDS: Ferrous Gluconate TAB* 324 MG TAB PO SCH ×2 (07:40→20:59)
[2019-08-08] MEDS: Bumetanide TAB* 2 MG PO SCH (07:40)
[2019-08-08] MEDS: Losartan TAB* 25 MG PO SCH (07:40)
[2019-08-08] MEDS: Multivitamins/Minerals TAB PO SCH (07:40)
[2019-08-08] MEDS: levETIRAcetam TAB* 500 MG PO SCH ×2 (07:40→21:00)
[2019-08-08] MEDS: Pantoprazole TAB * 40 MG TAB PO SCH ×2 (07:40→21:00)
[2019-08-08] MEDS: Carvedilol TAB* 25 MG PO SCH ×2 (07:40→20:59)
[2019-08-08] MEDS: MAGNESIUM CHLORIDE 71.5 MG PO SCH (07:42)
[2019-08-08] MEDS: CYANOCOBALAMIN 100 MCG TAB PO SCH (07:42)
[2019-08-08] MEDS: Metformin ER (NF) 500 MG TAB PO SCH ×2 (07:44→21:00)
[2019-08-08] MEDS: SPIRIVA Respimat* (tiotropium) 2.5 mcg/inh Inhaler INH SCH (07:57)
[2019-08-08] MEDS ORDERED: Insulin REGULAR(*) 1 UNITS UNIT SUBCUT SCH (08:00)
[2019-08-08] MEDS: Insulin REGULAR(*) 1 UNITS UNIT SUBCUT SCH ×3 (08:03→18:21)
--- NOTE | 2019-08-08 09:12 | PN ---
Subjective Date of Service: 08/08/19 Length of Stay: 1 Days Interval History: No new issues overnight. No reported seizures. The patient felt somewhat more groggy and unbalanced this am upon wakening but that has resolved. She denies any new focal weakness or numbness. No bladder or bowel incontinence. No tongue biting. Rested overnight without issues. EEG: slowing, no epileptiform activity Social History: Unchanged from Admission Past Medical History: Unchanged from Admission Objective Active Medications: Albuterol (Ventolin 2.5 Mg/3 Ml Neb.Rachel*) 1.25 mg INH Q4H PRN PRN Reason: SOB/WHEEZING Atorvastatin Calcium (Lipitor*) 10 mg PO DAILY [facility] Last Admin: 08/08/19 07:40 Dose: 10 mg Bumetanide (Bumex Tab*) 2 mg PO DAILY [facility] Last Admin: 08/08/19 07:40 Dose: 2 mg Carvedilol (Coreg Tab*) 25 mg PO BID [facility] Last Admin: 08/08/19 07:40 Dose: 25 mg Dextrose (D50w Syringe 50 Ml*) 12.5 gm IV PUSH .FOR FS < 60 - SS PRN PRN Reason: FS < 60 Ferrous Gluconate (Fergon Tab*) 324 mg PO BID [facility] Last Admin: 08/08/19 07:40 Dose: 324 mg Insulin Human Lispro (Humalog*) 0 units SUBCUT ACHS [facility]; Protocol Last Admin: 08/08/19 08:04 Dose: 6 units Insulin Human NPH (Insulin Nph(*)) 25 units SUBCUT QPM [facility] Last Admin: 08/07/19 17:04 Dose: 25 units Insulin Human Regular (Insulin Regular(*)) 15 units SUBCUT AC [facility] Last Admin: 08/08/19 08:03 Dose: 15 units Levetiracetam (Keppra Tab*) 500 mg PO BID [facility] Last Admin: 08/08/19 07:40 Dose: 500 mg Levothyroxine Sodium (Synthroid Tab*) 25 mcg PO DAILY@0600 [facility] Last Admin: 08/08/19 05:18 Dose: 25 mcg Lorazepam (Ativan Inj*) 1 mg IV PUSH Q4H PRN PRN Reason: Seizure Losartan Potassium (Cozaar Tab*) 50 mg PO DAILY [facility] Last Admin: 08/08/19 07:40 Dose: 50 mg Metformin HCl (Metformin Er (Nf)) 500 mg PO BID [facility] Last Admin: 08/08/19 07:44 Dose: Not Given Miscellaneous (Ativan Pyxis Bell) 1 ea N/A .ATIVAN IV BELL PRN PRN Reason: PYXIS BELL Multivitamins/Minerals (Theragran/Minerals Tab*) 1 tab PO DAILY [facility] Last Admin: 08/08/19 07:40 Dose: 1 tab Nitroglycerin (Nitroglycerin Tab 0.4 Mg*) 0.4 mg SL Q5M PRN PRN Reason: ANGINA Cyanocobalamin 100 (Mcg Tab) 1 dose PO DAILY [facility] Last Admin: 08/08/19 07:42 Dose: Not Given Magnesium Chloride (Ec 71.5 Mg Tab) 1 dose PO DAILY [facility] Last Admin: 08/08/19 07:42 Dose: Not Given Nystatin (Nystatin Top Powder*) 1 applic TOPICAL BID PRN PRN Reason: ITCHING Oxycodone HCl (Roxycodone Tab*) 2.5 mg PO Q6H PRN PRN Reason: Moderate Pain Last Admin: 08/07/19 13:39 Dose: 2.5 mg Pantoprazole Sodium (Protonix Tab*) 40 mg PO BID [facility] Last Admin: 08/08/19 07:40 Dose: 40 mg Potassium Chloride (Klor Con Er Tab*) 20 meq PO DAILY [facility] Last Admin: 08/08/19 07:40 Dose: 20 meq Spironolactone (Aldactone Tab*) 50 mg PO QAM [facility] Last Admin: 08/08/19 07:40 Dose: 50 mg Spironolactone (Aldactone Tab*) 25 mg PO QPM [facility] Last Admin: 08/07/19 17:04 Dose: 25 mg Terazosin HCl (Hytrin Cap*) 10 mg PO BEDTIME [facility] Last Admin: 08/07/19 23:43 Dose: 10 mg Tiotropium Vici (Spiriva Respimat 2.5 Mcg) 2 puff INH DAILY [facility] Last Admin: 08/08/19 07:57 Dose: 2 puff Triamcinolone Acetonide (Triamcinolone 0.025% Oint *) 1 applic TOPICAL DAILY PRN PRN Reason: RASH Vital Signs 08/07/19 08/07/19 08/07/19 09:47 11:05 11:18 Temperature 97.9 F 98.1 F Pulse Rate 72 71 65 Respiratory 19 16 16 Rate Blood Pressure 166/79 153/70 172/70 (mmHg) O2 Sat by Pulse 100 99 100 Oximetry 08/07/19 08/07/19 08/07/19 13:39 15:15 15:44 Temperature 97.6 F Pulse Rate 62 Respiratory 20 20 20 Rate Blood Pressure 122/56 (mmHg) O2 Sat by Pulse 100 Oximetry 08/07/19 08/07/19 08/08/19 19:29 23:43 03:45 Temperature 98.0 F 98.3 F 98.6 F Pulse Rate 64 65 62 Respiratory 16 16 16 Rate Blood Pressure 135/54 126/50 117/34 (mmHg) O2 Sat by Pulse 100 100 100 Oximetry 08/08/19 08/08/19 07:30 08:01 Temperature 97.6 F Pulse Rate 63 60 Respiratory 20 14 Rate Blood Pressure 144/58 (mmHg) O2 Sat by Pulse 100 99 Oximetry Intake and Output Last 24 Hours 08/06/19 08/07/19 08/08/19 08/09/19 06:59 06:59 06:59 06:59 Intake Total 3000 465 Output Total 1000 1525 Balance 1999 -1059 Weight 195 lb 6.4 oz 202 lb Intake: IV Fluids 3000 100 Oral 365 Output: Urine 1000 1525 Other: Estimated Void Large Medium Date of Last Bowel 08/07/2019 Movement # Bowel Movements 1 Estimated Stool Amount Large # Voids 3 Oxygen Devices in Use Now: Nasal Cannula Neurology Exam: General: Well nourished, well developed, and in no acute distress HEENT: Normocephalic/atraumatic, sclera anicteric, mucous membranes moist Neck: Supple Chest: Clear to auscultation bilaterally Cardiovascular: Regular rate and rhythm Abdomen: Soft, non-tender/non-distended Extremities: No clubbing, cyanosis, or edema Neurological Findings: Awake, alert, and oriented to person, place, and time. Speech: fluent without dysarthria, repetition intact Cranial Nerve: PERRL, EOM intact, VFF, no nystagmus, face symmetric bilaterally , hearing intact bilaterally, palate elevates symmetrically, tongue midline Motor: Generalized baseline weakness, 4+/5 in the arms and legs with some giveway, no focal weakness appreciated Sensation: Loss of LT/PP in the legs to the shins and in the hands bilaterally Deep Tendon Reflex: Down throughout Finger to nose, rapid alternating movements intact without tremor, Result Diagrams: 08/07/19 01:43 08/07/19 05:37 Assessment/Plan Ms. 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 She presents with what sounds like a generalized tonic-clonic seizure with clear semiology and a history of cramping in her left hand, thought to be possible seizures in the past. 1. 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 I recommend continued treatment with antiseizure medication. --Will continue Keppra 500mg po bid as outpatient, assuming she tolerates oral today --Will need follow up with me as an outpatient in 8-12 weeks. --She should return to the ER with any further seizure like activity. 2. DM: She will work with inpatient team and outpatient PCP for better control of her diabetes. Severely elevated glucose of hypoglycemia could precipitate a seizure so snf good control is important for seizure prevention moving forward 3. Possible TIA in the past: Workup was negative recently. My suspicion is that her hand cramping was likely focal seizures. 4. Neuropathy: Continue gabapentin. Fall risk, would benefit from outpatient PT for strengthening and gait. Using a walker to ambulate. 5. GI issues: I found no evidence that Sandostatin or Feraheme (recent infusions) are associated with seizure but given the acute worsening of seizure activity, she is very worried about continuing this medication. Now that she is treated for seizures, she might tolerate these infusions but I will defer to GI regarding continuation of this therapy for her AVMs. 6. Anemia: Following with PCP, GI
--- NOTE | 2019-08-08 13:29 | CONSULT ---
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 After achieving A1c <8% with R/N insulin regimen in April 2019, she has experienced significant hyperglycemia in the past 2-3 months and it is unlikely that hypoglycemia was the cause of the current episode. Of note, she received her first dose of long- acting octreotide on 06/15/19 for prevention of variceal bleeding and has had three separate admissions for severe hyperglycemia since then. Sandostatin can cause both hypoglycemia and hyperglycemia, especially in insulin-treated patients. I would recommend avoiding Sandostatin in the future and will discuss this with Dr. Marcial. PLAN: - d/c Humalog - continue regular insulin 15 units with meals - add 3 units for every 50mg/dL interval above 200mg/dL - continue NPH insulin 25 units at bedtime - I have sent a prescription for Humulin 70/30 insulin pen to her pharmacy, as follows: - 40 units AM with breakfast - 20 units PM with supper - check fingersticks BID before insulin and at bedtime at home - follow-up with [facility] Endocrinology in 2 weeks - place ambulatory CGM at that time - call [phone] with questions SUBJECTIVE: History of Present Illness: 78 yo F with extensive medical history including DM , cirrhosis, iron-deficiency anemia, GIB, hypothyroidism and HTN, now presenting with unresponsiveness to the ED. See admission H&P for details. Briefly, she experienced acute confusional state with automatic movements in the cleaner and trimmer hours of 08/07/19. does not believe her BG was low at the time, but did not explicitly check BG at the time of the event. Of note, she was [place] [facility] for severe hyperglycemia with peripheral neurological complaints. She was diagnosed with diabetes in 1987 and started insulin in 2001. Complications include HUERTA, CKD-3 and macroalbuminuria. She was admitted for first-time HHS in October 2018 when her A1c was 11.9%. After starting Humulin R/N then, she had been able to achieve reasonable glycemic control with A1c 7.9% in April 2019. More recently, she admits to non-adherence to insulin therapy and has been injecting insulin only twice/day in the past several months. Past Medical History: Medications Prior to Admission: Carvedilol TAB* [Coreg TAB*] 25 mg PO BID 09/13/16 [History Confirmed 08/07/19] Levothyroxine TAB* [Synthroid 25 MCG TAB*] 25 mcg PO DAILY 09/13/16 [History Confirmed 08/07/19] Simvastatin TAB(NF) [Zocor 20 MG (NF)] 20 mg PO DAILY 09/13/16 [History Confirmed 08/07/19] Nystatin TOP POWDER* 1 applic TOPICAL BID PRN 10/11/16 [History Confirmed ] Triamcinolone 0.1% CREAM (NF) [Kenalog 0.1% Cream (NF)] 1 applic TOPICAL DAILY PRN 10/11/16 [History Confirmed 08/07/19] Cyanocobalamin TAB* [Vitamin B12 TAB*] 100 mcg PO DAILY 10/02/18 [History Confirmed 08/07/19] Insulin NPH Human Isophane [Humulin N Kwikpen 100 units/ml 3 ml x 5 Pens] 25 units SUBCUT QPM 01/05/19 [History Confirmed 08/07/19] Losartan TAB* [Cozaar TAB*] 50 mg PO DAILY 01/05/19 [History Confirmed 08/07/19] Omeprazole CAP (NF) [Prilosec CAP* 20 MG] 20 mg PO BID 01/05/19 [History Confirmed 08/07/19] Spironolactone (NF) [Spironolactone 50 MG (NF)] 50 mg PO QAM 01/05/19 [History Confirmed 08/07/19] Multivitamins/Minerals TAB* [Theragran/minerals TAB*] 1 tab PO DAILY 01/09/19 [ History Confirmed 08/07/19] oxyCODONE TAB* [Roxycodone TAB 5 mg*] 2.5 - 5 mg PO Q6H PRN 01/09/19 [History Confirmed 08/07/19] Potassium Chlor TAB* [Potassium Chlor TAB 20 MEQ*] 20 meq PO DAILY #30 tab.er [Rx Confirmed 08/07/19] Tiotropium CAPSULE (NF) [Spiriva CAPSULE (NF)] 1 cap.inh INH DAILY 05/11/19 [ History Confirmed 08/07/19] Albuterol Sulfate 1.25 mg INH Q4H PRN 07/09/19 [History Confirmed 08/07/19] Bumetanide TAB* [Bumex 2 MG TAB*] 2 mg PO DAILY 07/09/19 [History Confirmed 05/16] Ferrous Gluconate TAB* [Fergon TAB*] 324 mg PO BID 07/09/19 [History Confirmed 08/07/19] Insulin REGULAR(*) [Insulin REGULAR 100 units/ml 3 ml VIAL (*)] 30 units SUBCUT .AT LUNCH & DINNER 07/09/19 [History Confirmed 08/07/19] Insulin REGULAR(*) [Insulin REGULAR 100 units/ml 3 ml VIAL (*)] 35 units SUBCUT .AT BREAKFAST 07/09/19 [History Confirmed 08/07/19] Magnesium Chloride EC TAB* [Slow Mag EC TAB*] 71.5 mg PO DAILY 07/09/19 [ History Confirmed 08/07/19] Metformin ER (NF) 500 mg PO BID 07/09/19 [History Confirmed 08/07/19] Terazosin CAP* [Hytrin CAP 5 MG*] 10 mg PO BEDTIME 07/09/19 [History Confirmed 08/07/19] Nitroglycerin TAB 0.4 MG* 0.4 mg SL Q5M PRN MDD 3 tabs in 15 min 07/12/19 [ History Confirmed 08/07/19] Spironolactone TAB* [Aldactone TAB 25 MG*] 25 mg PO QPM 07/12/19 [History Confirmed 08/07/19] Inpatient Medications: Albuterol (Ventolin 2.5 Mg/3 Ml Neb.Rachel*) 1.25 mg INH Q4H PRN PRN Reason: SOB/WHEEZING Atorvastatin Calcium (Lipitor*) 10 mg PO DAILY [facility] Last Admin: 08/08/19 07:40 Dose: 10 mg Bumetanide (Bumex Tab*) 2 mg PO DAILY [facility] Last Admin: 08/08/19 07:40 Dose: 2 mg Carvedilol (Coreg Tab*) 25 mg PO BID [facility] Last Admin: 08/08/19 07:40 Dose: 25 mg Dextrose (D50w Syringe 50 Ml*) 12.5 gm IV PUSH .FOR FS < 60 - SS PRN PRN Reason: FS < 60 Ferrous Gluconate (Fergon Tab*) 324 mg PO BID [facility] Last Admin: 08/08/19 07:40 Dose: 324 mg Insulin Human Lispro (Humalog*) 0 units SUBCUT ACHS [facility]; Protocol Last Admin: 08/08/19 13:02 Dose: 3 units Insulin Human NPH (Insulin Nph(*)) 25 units SUBCUT QPM [facility] Last Admin: 08/07/19 17:04 Dose: 25 units Insulin Human Regular (Insulin Regular(*)) 15 units SUBCUT AC [facility] Last Admin: 08/08/19 13:02 Dose: 15 units Levetiracetam (Keppra Tab*) 500 mg PO BID [facility] Last Admin: 08/08/19 07:40 Dose: 500 mg Levothyroxine Sodium (Synthroid Tab*) 25 mcg PO DAILY@0600 [facility] Last Admin: 08/08/19 05:18 Dose: 25 mcg Lorazepam (Ativan Inj*) 1 mg IV PUSH Q4H PRN PRN Reason: Seizure Losartan Potassium (Cozaar Tab*) 50 mg PO DAILY [facility] Last Admin: 08/08/19 07:40 Dose: 50 mg Metformin HCl (Metformin Er (Nf)) 500 mg PO BID [facility] Last Admin: 08/08/19 07:44 Dose: Not Given Miscellaneous (Ativan Pyxis Bell) 1 ea N/A .ATIVAN IV BELL PRN PRN Reason: PYXIS BELL Multivitamins/Minerals (Theragran/Minerals Tab*) 1 tab PO DAILY [facility] Last Admin: 08/08/19 07:40 Dose: 1 tab Nitroglycerin (Nitroglycerin Tab 0.4 Mg*) 0.4 mg SL Q5M PRN PRN Reason: ANGINA Cyanocobalamin 100 (Mcg Tab) 1 dose PO DAILY [facility] Last Admin: 08/08/19 07:42 Dose: Not Given Magnesium Chloride (Ec 71.5 Mg Tab) 1 dose PO DAILY [facility] Last Admin: 08/08/19 07:42 Dose: Not Given Nystatin (Nystatin Top Powder*) 1 applic TOPICAL BID PRN PRN Reason: ITCHING Oxycodone HCl (Roxycodone Tab*) 2.5 mg PO Q6H PRN PRN Reason: Moderate Pain Last Admin: 08/07/19 13:39 Dose: 2.5 mg Pantoprazole Sodium (Protonix Tab*) 40 mg PO BID [facility] Last Admin: 08/08/19 07:40 Dose: 40 mg Potassium Chloride (Klor Con Er Tab*) 20 meq PO DAILY [facility] Last Admin: 08/08/19 07:40 Dose: 20 meq Spironolactone (Aldactone Tab*) 50 mg PO QAM [facility] Last Admin: 08/08/19 07:40 Dose: 50 mg Spironolactone (Aldactone Tab*) 25 mg PO QPM [facility] Last Admin: 08/07/19 17:04 Dose: 25 mg Terazosin HCl (Hytrin Cap*) 10 mg PO BEDTIME [facility] Last Admin: 08/07/19 23:43 Dose: 10 mg Tiotropium [place] (Spiriva Respimat 2.5 Mcg) 2 puff INH DAILY [facility] Last Admin: 08/08/19 07:57 Dose: 2 puff Triamcinolone Acetonide (Triamcinolone 0.025% Oint *) 1 applic TOPICAL DAILY PRN PRN Reason: RASH Allergies/Intolerances: ACEI Social History: Lives with . Denies substance abuse. Retired. Family History: Diabetes. Review of Systems: As above. 12 system review is otherwise negative. OBJECTIVE: Temp Pulse Resp BP Pulse Ox 97.6 F 60 14 144/58 99 08/08/19 07:30 08/08/19 08:01 08/08/19 08:01 08/08/19 07:30 08/08/19 08:01 General: alert, pleasant, oriented, no distress ENT: neck supple, no thyromegaly, no bruit is heard Chest: CTAB, no wheezing or crackles CV: RRR, no murmur Abdomen: soft, non-tender Extremities: no edema, distal pulses intact Skin: warm, dry, no rash Neuro: grossly intact motor/sensory in extremities Psych: restricted affect, pleasant Labs: 08/07/19 03:40 444 08/07/19 08:48 405 08/07/19 22:08 81 08/07/19 23:53 120 08/08/19 02:52 184 WBC 4.2 10^3/uL (3.5-10.8) 08/07/19 01:43 RBC 3.77 10^6 /uL (3.70-4.87) 08/07/19 01:43 Hgb 9.0 g/dL (12.0-16.0) L 08/07/19 01:43 Hct 30 % (35-47) L 08/07/19 01:43 MCV 79 fL (80-97) L 08/07/19 01:43 MCH 24 pg (27-31) L 08/07/19 01:43 MCHC 30 g/dL (31-36) L 08/07/19 01:43 RDW 22 % (10-15) H 08/07/19 01:43 Plt Count 122 10^3/uL (150-450) L 08/07/19 01:43 MPV 12.2 fL (7.4-10.4) H 08/07/19 01:43 Neut % (Auto) 75.4 % 08/07/19 01:43 Lymph % (Auto) 13.6 % 08/07/19 01:43 [place] % (Auto) 6.7 % 08/07/19 01:43 Eos % (Auto) 3.8 % 08/07/19 01:43 Baso % (Auto) 0.5 % 08/07/19 01:43 Absolute Neuts (auto) 3.1 10^3/ul (1.5-7.7) 08/07/19 01:43 Absolute Lymphs (auto) 0.6 10^3/ul (1.0-4.8) L 08/07/19 01:43 Absolute Monos (auto) 0.3 10^3/ul (0-0.8) 08/07/19 01:43 Absolute Eos (auto) 0.2 10^3/ul (0-0.6) 08/07/19 01:43 Absolute Basos (auto) 0.0 10^3/ul (0-0.2) 08/07/19 01:43 Absolute Nucleated RBC 0.0 10^3/ul 08/07/19 01:43 Nucleated RBC % 0.0 08/07/19 01:43 INR (Anticoag Therapy) 1.16 (0.82-1.09) H 08/07/19 01:44 VBG pH 7.38 (7.32-7.43) 08/07/19 05:33 VBG pCO2 51 mmHg (41-51) 08/07/19 05:33 VBG pO2 42.0 mmHg (35-45) 08/07/19 05:33 VBG HCO3 27.3 mmol/L (24-28) 08/07/19 05:33 VBG O2 Saturation 73.9 % (70-80) 08/07/19 05:33 VBG Base Excess 3.9 mmol/L (0.0-4.0) 08/07/19 05:33 Sodium 137 mmol/L (135-145) 08/07/19 05:37 Potassium 4.4 mmol/L (3.5-5.0) 08/07/19 05:37 Chloride 100 mmol/L (101-111) L 08/07/19 05:37 Carbon Dioxide 31 mmol/L (22-32) 08/07/19 05:37 Anion Gap 6 mmol/L (2-11) 08/07/19 05:37 BUN 30 mg/dL (6-24) H 08/07/19 05:37 Creatinine 1.25 mg/dL (0.51-0.95) H 08/07/19 05:37 Est GFR ( Amer) 50.3 (>60) 08/07/19 05:37 Est GFR (Non-Af Amer) 41.6 (>60) 08/07/19 05:37 BUN/Creatinine Ratio 24.0 (8-20) H 08/07/19 05:37 Glucose 477 mg/dL (70-100) H 08/07/19 05:37 POC Glucose (mg/dL) 151 mg/dL (70-100) H 08/08/19 12:11 Glucose Meter Confirm 414 mg/dL (70-100) H 08/07/19 07:29 Hemoglobin A1c 12.5 % (4.0-5.6) H 08/08/19 06:36 Lactic Acid 2.4 mmol/L (0.5-2.0) H* 08/07/19 09:22 Calcium 7.7 mg/dL (8.6-10.3) L 08/07/19 05:37 Total Bilirubin 0.70 mg/dL (0.2-1.0) 08/07/19 01:41 AST 48 U/L (13-39) H 08/07/19 01:41 ALT 32 U/L (7-52) 08/07/19 01:41 Alkaline Phosphatase 335 U/L (34-104) H 08/07/19 01:41 Ammonia 126 mcmol/L (16-53) H 08/07/19 09:22 Total Creatine Kinase 63 U/L (10-223) 08/07/19 01:41 Troponin I 0.02 ng/mL (<0.03) 08/07/19 01:41 C-Reactive Protein 3.83 mg/L (<8.01) 08/07/19 01:41 Total Protein 7.7 g/dL (6.4-8.9) 08/07/19 01:41 Albumin 3.4 g/dL (3.2-5.2) 08/07/19 01:41 Globulin 4.3 g/dL (2-4) H 08/07/19 01:41 Albumin/Globulin Ratio 0.8 (1-3) L 08/07/19 01:41 TSH 16.57 mcIU/mL (0.34-5.60) H 08/07/19 01:41 Prolactin 19.3 ng/mL (1.0-25.0) 08/07/19 01:41 Urine Color Yellow 08/07/19 12:52 Urine Appearance Cloudy 08/07/19 12:52 Urine pH 5.0 (5-9) 08/07/19 12:52 Ur Specific [place] 1.009 (1.010-1.030) L 08/07/19 12:52 Urine Protein 1+(30 mg/dl) (Negative) A 08/07/19 12:52 Urine Ketones Negative (Negative) 08/07/19 12:52 Urine Blood Negative (Negative) 08/07/19 12:52 Urine Nitrate Negative (Negative) 08/07/19 12:52 Urine Bilirubin Negative (Negative) 08/07/19 12:52 Urine Urobilinogen Negative (Negative) 08/07/19 12:52 Ur Leukocyte Esterase 2+ (Negative) A 08/07/19 12:52 Urine WBC (Auto) 3+(>20/hpf) (Absent) A 08/07/19 12:52 Urine RBC (Auto) 1+(3-5/hpf) (Absent) A 08/07/19 12:52 Ur Squamous Epith Cells Present (Absent) A 08/07/19 12:52 Urine Bacteria Absent (Absent) 08/07/19 12:52 Urine Glucose 3+(>=500 mg/dl) (Negative) A 08/07/19 12:52 Urine Opiates Screen None detected (None Detect) 08/07/19 01:43 Ur Barbiturates Screen None detected (None Detect) 02 01:43 Ur Phencyclidine Scrn None detected (None Detect) 08/07/19 01:43 Ur Amphetamines Screen None detected (None Detect) 08/07/19 01:43 U Benzodiazepines Scrn None detected (None Detect) 08/07/19 01:43 Urine Cocaine Screen None detected (None Detect) 08/07/19 01:43 U Cannabinoids Screen None detected (None Detect) 08/07/19 01:43 Serum Alcohol < 10 mg/dL (<10) 08/07/19 01:41
--- NOTE | 2019-08-08 15:07 | PN ---
Subjective Date of Service: 08/08/19 Interval History: HOSPITALIST PROGRESS NOTE Patient seen and examined at bedside. Care reviewed and d/w Fatuma Zamora RN. She is much brighter today. Denies pain and had no more "spasms" including the frequent ones on her left hand. Family History: Unchanged from Admission Social History: Unchanged from Admission Past Medical History: Unchanged from Admission Objective Active Medications: Albuterol (Ventolin 2.5 Mg/3 Ml Neb.Rachel*) 1.25 mg INH Q4H PRN PRN Reason: SOB/WHEEZING Atorvastatin Calcium (Lipitor*) 10 mg PO DAILY [facility] Last Admin: 08/08/19 07:40 Dose: 10 mg Bumetanide (Bumex Tab*) 2 mg PO DAILY [facility] Last Admin: 08/08/19 07:40 Dose: 2 mg Carvedilol (Coreg Tab*) 25 mg PO BID [facility] Last Admin: 08/08/19 07:40 Dose: 25 mg Dextrose (D50w Syringe 50 Ml*) 12.5 gm IV PUSH .FOR FS < 60 - SS PRN PRN Reason: FS < 60 Ferrous Gluconate (Fergon Tab*) 324 mg PO BID [facility] Last Admin: 08/08/19 07:40 Dose: 324 mg Ceftriaxone Sodium 1 gm/ (Sodium Chloride) 50 mls @ 100 mls/hr IVPB Q24H [facility] Insulin Human Lispro (Humalog*) 0 units SUBCUT ACHS [facility]; Protocol Last Admin: 08/08/19 13:02 Dose: 3 units Insulin Human NPH (Insulin Nph(*)) 25 units SUBCUT QPM [facility] Last Admin: 08/07/19 17:04 Dose: 25 units Insulin Human Regular (Insulin Regular(*)) 15 units SUBCUT AC [facility] Last Admin: 08/08/19 13:02 Dose: 15 units Levetiracetam (Keppra Tab*) 500 mg PO BID [facility] Last Admin: 08/08/19 07:40 Dose: 500 mg Levothyroxine Sodium (Synthroid Tab*) 25 mcg PO DAILY@0600 [facility] Last Admin: 08/08/19 05:18 Dose: 25 mcg Lorazepam (Ativan Inj*) 1 mg IV PUSH Q4H PRN PRN Reason: Seizure Losartan Potassium (Cozaar Tab*) 50 mg PO DAILY [facility] Last Admin: 08/08/19 07:40 Dose: 50 mg Metformin HCl (Metformin Er (Nf)) 500 mg PO BID [facility] Last Admin: 08/08/19 07:44 Dose: Not Given Miscellaneous (Ativan Pyxis [place]) 1 ea N/A .ATIVAN IV POSADAS PRN PRN Reason: PYXIS POSADAS Multivitamins/Minerals (Theragran/Minerals Tab*) 1 tab PO DAILY [facility] Last Admin: 08/08/19 07:40 Dose: 1 tab Nitroglycerin (Nitroglycerin Tab 0.4 Mg*) 0.4 mg SL Q5M PRN PRN Reason: ANGINA Cyanocobalamin 100 (Mcg Tab) 1 dose PO DAILY [facility] Last Admin: 08/08/19 07:42 Dose: Not Given Magnesium Chloride (Ec 71.5 Mg Tab) 1 dose PO DAILY [facility] Last Admin: 08/08/19 07:42 Dose: Not Given Nystatin (Nystatin Top Powder*) 1 applic TOPICAL BID PRN PRN Reason: ITCHING Oxycodone HCl (Roxycodone Tab*) 2.5 mg PO Q6H PRN PRN Reason: Moderate Pain Last Admin: 08/07/19 13:39 Dose: 2.5 mg Pantoprazole Sodium (Protonix Tab*) 40 mg PO BID [facility] Last Admin: 08/08/19 07:40 Dose: 40 mg Potassium Chloride (Klor Con Er Tab*) 20 meq PO DAILY [facility] Last Admin: 08/08/19 07:40 Dose: 20 meq Spironolactone (Aldactone Tab*) 50 mg PO QAM [facility] Last Admin: 08/08/19 07:40 Dose: 50 mg Spironolactone (Aldactone Tab*) 25 mg PO QPM [facility] Last Admin: 08/07/19 17:04 Dose: 25 mg Terazosin HCl (Hytrin Cap*) 10 mg PO BEDTIME [facility] Last Admin: 08/07/19 23:43 Dose: 10 mg Tiotropium [place] (Spiriva Respimat 2.5 Mcg) 2 puff INH DAILY [facility] Last Admin: 08/08/19 07:57 Dose: 2 puff Triamcinolone Acetonide (Triamcinolone 0.025% Oint *) 1 applic TOPICAL DAILY PRN PRN Reason: RASH Vital Signs - 8 hr 08/08/19 08/08/19 08/08/19 07:30 08:01 11:15 Temperature 97.6 F 97.9 F Pulse Rate 63 60 58 Respiratory 20 14 20 Rate Blood Pressure 144/58 151/36 (mmHg) O2 Sat by Pulse 100 99 100 Oximetry Oxygen Devices in Use Now: Nasal Cannula Appearance: Elderly lady sitting up in bed in NAD Eyes: No Scleral Icterus Ears/Nose/Mouth/Throat: Mucous Membranes Moist Neck: Trachea Midline Respiratory: Symmetrical Chest Expansion and Respiratory Effort, Clear to Auscultation Cardiovascular: RRR - Normal S1 and S2 Neurological: Alert and Oriented x 3, NL Muscle Strength and Tone Result Diagrams: 08/07/19 01:43 08/07/19 05:37 Microbiology and Other Data: Microbiology 08/07/19 02:20 Urine Culture - Preliminary Urine Klebsiella Pneumoniae Assess/Plan/Problems-Billing Assessment: Mrs Hansen is a 78yo F with PMH of type 2 DM, diabetice neuropathy and neprhopathy, 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 - Patient Problems (1) Seizure Comment: - Suspect her left hand "spasms" were focal seizures and she had a generalized tonic clonic seizure prior to this admission. 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 - Continue Levetiracetam 500mg DEBI and f/u with Dr Mcdonald as outpatient. (2) Uncontrolled diabetes mellitus Comment: - Hb A1c up to 12.5 from 7.9 in April 2019, likely secondary to non compliance. - Endocrinology input appreciated. (3) UTI (urinary tract infection) Comment: - Present on admission. - Abnormal UA but asymptomatic - culture now growing Klebsiella - will start Ceftriaxone and follow sensitivities. (4) DVT prophylaxis Comment: - Pharmacological prophylaxis contraindicated in the setting of chronic GI bleed. - SCDs. (5) Full code status Status and Disposition: Change from OBV to inpatient.
[2019-08-08] MEDS: cefTRIAXone(*) 1 GM in NS 0.9% 50 ML* 50 ML IVPB SCH (15:31)
[2019-08-08] MEDS: Insulin NPH(*) 1 UNITS UNIT SUBCUT SCH (18:21)
[2019-08-08] MEDS: Terazosin CAP* 5 MG PO SCH (21:00)
[2019-08-09] MEDS: Levothyroxine TAB* 25 MCG TAB PO SCH (05:26)
[2019-08-09] MEDS: SPIRIVA Respimat* (tiotropium) 2.5 mcg/inh Inhaler INH SCH (07:37)
[2019-08-09] MEDS: Insulin REGULAR(*) 1 UNITS UNIT SUBCUT SCH ×6 (08:01→17:42)
[2019-08-09] MEDS: levETIRAcetam TAB* 500 MG PO SCH ×2 (09:27→20:45)
[2019-08-09] MEDS: Potassium Chlor TAB* 20 MEQ TAB.ER PO SCH (09:27)
[2019-08-09] MEDS: Ferrous Gluconate TAB* 324 MG TAB PO SCH ×2 (09:27→20:45)
[2019-08-09] MEDS: Multivitamins/Minerals TAB PO SCH (09:28)
[2019-08-09] MEDS: Atorvastatin* 10 MG TAB PO SCH (09:28)
[2019-08-09] MEDS: Losartan TAB* 25 MG PO SCH (09:28)
[2019-08-09] MEDS: Carvedilol TAB* 25 MG PO SCH ×2 (09:29→20:45)
[2019-08-09] MEDS: Bumetanide TAB* 2 MG PO SCH (09:29)
[2019-08-09] MEDS: Pantoprazole TAB * 40 MG TAB PO SCH ×2 (09:29→20:46)
[2019-08-09] MEDS: Spironolactone TAB* 25 MG PO SCH ×2 (09:29→18:35)
[2019-08-09] MEDS: MAGNESIUM CHLORIDE 71.5 MG PO SCH (09:30)
[2019-08-09] MEDS: CYANOCOBALAMIN 100 MCG TAB PO SCH (09:30)
[2019-08-09] MEDS: Metformin ER (NF) 500 MG TAB PO SCH (09:30)
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
--- NOTE | 2019-08-09 15:09 | CONSULT ---
Palliative / Hospice Consult Ordering Provider: Stacie Lutz - PCP-João Referal Reason: Goals of care/no bowel meds/oxy - Subjective Code Status: Full Code Advance Directives Location: No Advance Directives - History or Present Illness History or Present Illness: 78yo female with HUERTA presents to ER with spasm. PMH is significant for HUERTA liver cirrhosis with portal HTN, DM type 2, obesity, gastropathy, esophageal varices, duodenal AVM chronic GI bleed, non ischemic cardiomyopathy EF 45-50%, COPD on 2 liters, HTN, CKD stage 3, iron def anemia, spinal stenosis, hyperlipidemia, hypothyroidism and diastolic CHF. 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 Studies ekg-nsr, CXR-COPD, brain CT neg, mild chronic small vessel ischemic disease, EEG-nonspecific mild diffuse encephalopathy, no epileptiform activity, H/H 9/30, BUN/Cr 30/1.25, egfr 41.6, Ca 7.7, INR 1.16, alb 3.4 and UC-K. pneumoniae. Pt admitted with new seizure activity, CHF, HUERTA and CKD. Pt has 7 prior hospitalizations and 6 ER visits in the last year. All history is from pt and medical record. Lab Values: Abnormal Lab Results 08/08/19 08/08/19 08/09/19 16:48 20:47 07:50 POC Glucose (mg/dL) 148 H 244 H 143 H 08/09/19 11:47 POC Glucose (mg/dL) 362 H Laboratory Last Values WBC 4.2 10^3/uL (3.5-10.8) 08/07/19 01:43 RBC 3.77 10^6 /uL (3.70-4.87) 08/07/19 01:43 Hgb 9.0 g/dL (12.0-16.0) L 08/07/19 01:43 Hct 30 % (35-47) L 08/07/19 01:43 MCV 79 fL (80-97) L 08/07/19 01:43 MCH 24 pg (27-31) L 08/07/19 01:43 MCHC 30 g/dL (31-36) L 08/07/19 01:43 RDW 22 % (10-15) H 08/07/19 01:43 Plt Count 122 10^3/uL (150-450) L 08/07/19 01:43 MPV 12.2 fL (7.4-10.4) H 08/07/19 01:43 Neut % (Auto) 75.4 % 08/07/19 01:43 Lymph % (Auto) 13.6 % 08/07/19 01:43 [place] % (Auto) 6.7 % 08/07/19 01:43 Eos % (Auto) 3.8 % 08/07/19 01:43 Baso % (Auto) 0.5 % 08/07/19 01:43 Absolute Neuts (auto) 3.1 10^3/ul (1.5-7.7) 08/07/19 01:43 Absolute Lymphs (auto) 0.6 10^3/ul (1.0-4.8) L 08/07/19 01:43 Absolute Monos (auto) 0.3 10^3/ul (0-0.8) 08/07/19 01:43 Absolute Eos (auto) 0.2 10^3/ul (0-0.6) 08/07/19 01:43 Absolute Basos (auto) 0.0 10^3/ul (0-0.2) 08/07/19 01:43 Absolute Nucleated RBC 0.0 10^3/ul 08/07/19 01:43 Nucleated RBC % 0.0 08/07/19 01:43 INR (Anticoag Therapy) 1.16 (0.82-1.09) H 08/07/19 01:44 VBG pH 7.38 (7.32-7.43) 08/07/19 05:33 VBG pCO2 51 mmHg (41-51) 08/07/19 05:33 VBG pO2 42.0 mmHg (35-45) 08/07/19 05:33 VBG HCO3 27.3 mmol/L (24-28) 08/07/19 05:33 VBG O2 Saturation 73.9 % (70-80) 08/07/19 05:33 VBG Base Excess 3.9 mmol/L (0.0-4.0) 08/07/19 05:33 Sodium 137 mmol/L (135-145) 08/07/19 05:37 Potassium 4.4 mmol/L (3.5-5.0) 08/07/19 05:37 Chloride 100 mmol/L (101-111) L 08/07/19 05:37 Carbon Dioxide 31 mmol/L (22-32) 08/07/19 05:37 Anion Gap 6 mmol/L (2-11) 08/07/19 05:37 BUN 30 mg/dL (6-24) H 08/07/19 05:37 Creatinine 1.25 mg/dL (0.51-0.95) H 08/07/19 05:37 Est GFR ( Amer) 50.3 (>60) 08/07/19 05:37 Est GFR (Non-Af Amer) 41.6 (>60) 08/07/19 05:37 BUN/Creatinine Ratio 24.0 (8-20) H 08/07/19 05:37 Glucose 477 mg/dL (70-100) H 08/07/19 05:37 POC Glucose (mg/dL) 362 mg/dL (70-100) H 08/09/19 11:47 Glucose Meter Confirm 414 mg/dL (70-100) H 08/07/19 07:29 Hemoglobin A1c 12.5 % (4.0-5.6) H 08/08/19 06:36 Lactic Acid 2.4 mmol/L (0.5-2.0) H* 08/07/19 09:22 Calcium 7.7 mg/dL (8.6-10.3) L 08/07/19 05:37 Total Bilirubin 0.70 mg/dL (0.2-1.0) 08/07/19 01:41 AST 48 U/L (13-39) H 08/07/19 01:41 ALT 32 U/L (7-52) 08/07/19 01:41 Alkaline Phosphatase 335 U/L (34-104) H 08/07/19 01:41 Ammonia 126 mcmol/L (16-53) H 08/07/19 09:22 Total Creatine Kinase 63 U/L (10-223) 08/07/19 01:41 Troponin I 0.02 ng/mL (<0.03) 08/07/19 01:41 C-Reactive Protein 3.83 mg/L (<8.01) 08/07/19 01:41 Total Protein 7.7 g/dL (6.4-8.9) 08/07/19 01:41 Albumin 3.4 g/dL (3.2-5.2) 08/07/19 01:41 Globulin 4.3 g/dL (2-4) H 08/07/19 01:41 Albumin/Globulin Ratio 0.8 (1-3) L 08/07/19 01:41 TSH 16.57 mcIU/mL (0.34-5.60) H 08/07/19 01:41 Prolactin 19.3 ng/mL (1.0-25.0) 08/07/19 01:41 Urine Color Yellow 08/07/19 12:52 Urine Appearance Cloudy 08/07/19 12:52 Urine pH 5.0 (5-9) 08/07/19 12:52 Ur Specific [place] 1.009 (1.010-1.030) L 08/07/19 12:52 Urine Protein 1+(30 mg/dl) (Negative) A 08/07/19 12:52 Urine Ketones Negative (Negative) 08/07/19 12:52 Urine Blood Negative (Negative) 08/07/19 12:52 Urine Nitrate Negative (Negative) 08/07/19 12:52 Urine Bilirubin Negative (Negative) 08/07/19 12:52 Urine Urobilinogen Negative (Negative) 08/07/19 12:52 Ur Leukocyte Esterase 2+ (Negative) A 08/07/19 12:52 Urine WBC (Auto) 3+(>20/hpf) (Absent) A 08/07/19 12:52 Urine RBC (Auto) 1+(3-5/hpf) (Absent) A 08/07/19 12:52 Ur Squamous Epith Cells Present (Absent) A 08/07/19 12:52 Urine Bacteria Absent (Absent) 08/07/19 12:52 Urine Glucose 3+(>=500 mg/dl) (Negative) A 08/07/19 12:52 Urine Opiates Screen None detected (None Detect) 08/07/19 01:43 Ur Barbiturates Screen None detected (None Detect) 08/07/19 01:43 Ur Phencyclidine Scrn None detected (None Detect) 08/07/19 01:43 Ur Amphetamines Screen None detected (None Detect) 08/07/19 01:43 U Benzodiazepines Scrn None detected (None Detect) 08/07/19 01:43 Urine Cocaine Screen None detected (None Detect) 08/07/19 01:43 U Cannabinoids Screen None detected (None Detect) 08/07/19 01:43 Serum Alcohol < 10 mg/dL (<10) 08/07/19 01:41 - Objective Active Medications: Albuterol (Ventolin 2.5 Mg/3 Ml Neb.Rachel*) 1.25 mg INH Q4H PRN PRN Reason: SOB/WHEEZING Atorvastatin Calcium (Lipitor*) 10 mg PO DAILY [facility] Last Admin: 08/09/19 09:28 Dose: 10 mg Bumetanide (Bumex Tab*) 2 mg PO DAILY [facility] Last Admin: 08/09/19 09:29 Dose: 2 mg Carvedilol (Coreg Tab*) 25 mg PO BID [facility] Last Admin: 08/09/19 09:29 Dose: 25 mg Cyanocobalamin (Vitamin B12 Tab*) 500 mcg PO DAILY [facility] Dextrose (D50w Syringe 50 Ml*) 12.5 gm IV PUSH .FOR FS < 60 - SS PRN PRN Reason: FS < 60 Ferrous Gluconate (Fergon Tab*) 324 mg PO BID [facility] Last Admin: 08/09/19 09:27 Dose: 324 mg Ceftriaxone Sodium 1 gm/ (Sodium Chloride) 50 mls @ 100 mls/hr IVPB Q24H [facility] Last Admin: 08/08/19 15:31 Dose: 100 mls/hr Insulin Human NPH (Insulin Nph(*)) 25 units SUBCUT QPM [facility] Last Admin: 08/08/19 18:21 Dose: 25 units Insulin Human Regular (Insulin Regular(*)) 15 units SUBCUT AC [facility] Last Admin: 08/09/19 13:01 Dose: 15 units Insulin Human Regular (Insulin Regular(*)) 0 units SUBCUT AC [facility]; Protocol Last Admin: 08/09/19 13:01 Dose: 12 units Levetiracetam (Keppra Tab*) 500 mg PO BID [facility] Last Admin: 08/09/19 09:27 Dose: 500 mg Levothyroxine Sodium (Synthroid Tab*) 25 mcg PO DAILY@0600 [facility] Last Admin: 08/09/19 05:26 Dose: 25 mcg Lorazepam (Ativan Inj*) 1 mg IV PUSH Q4H PRN PRN Reason: Seizure Losartan Potassium (Cozaar Tab*) 50 mg PO DAILY [facility] Last Admin: 08/09/19 09:28 Dose: 50 mg Magnesium Chloride (Slow Mag Ec Tab*) 64 mg PO DAILY [facility] Metformin HCl (Glucophage*) 500 mg PO BID [facility] Miscellaneous (Ativan Pyxis Ebll) 1 ea N/A .ATIVAN IV BELL PRN PRN Reason: PYXIS BELL Multivitamins/Minerals (Theragran/Minerals Tab*) 1 tab PO DAILY [facility] Last Admin: 08/09/19 09:28 Dose: 1 tab Nitroglycerin (Nitroglycerin Tab 0.4 Mg*) 0.4 mg SL Q5M PRN PRN Reason: ANGINA Nystatin (Nystatin Top Powder*) 1 applic TOPICAL BID PRN PRN Reason: ITCHING Oxycodone HCl (Roxycodone Tab*) 2.5 mg PO Q6H PRN PRN Reason: Moderate Pain Last Admin: 08/07/19 13:39 Dose: 2.5 mg Pantoprazole Sodium (Protonix Tab*) 40 mg PO BID [facility] Last Admin: 08/09/19 09:29 Dose: 40 mg Potassium Chloride (Klor Con Er Tab*) 20 meq PO DAILY [facility] Last Admin: 08/09/19 09:27 Dose: 20 meq Spironolactone (Aldactone Tab*) 50 mg PO QAM [facility] Last Admin: 08/09/19 09:29 Dose: 50 mg Spironolactone (Aldactone Tab*) 25 mg PO QPM [facility] Last Admin: 08/08/19 18:21 Dose: 25 mg Terazosin HCl (Hytrin Cap*) 10 mg PO BEDTIME [facility] Last Admin: 08/08/19 21:00 Dose: 10 mg Tiotropium [place] (Spiriva Respimat 2.5 Mcg) 2 puff INH DAILY [facility] Last Admin: 08/09/19 07:37 Dose: 2 puff Triamcinolone Acetonide (Triamcinolone 0.025% Oint *) 1 applic TOPICAL DAILY PRN PRN Reason: RASH Vital Signs: Vital Signs: Temp Pulse Resp BP Pulse Ox 97.7 F 60 20 150/47 100 08/09/19 12:11 08/09/19 12:11 08/09/19 12:11 08/09/19 12:11 08/09/19 12:11 Patient Weight: Weight 91.626 kg Intake and Output: Intake & Output 08/07/19 08/08/19 08/09/19 08/10/19 06:59 06:59 06:59 06:59 Intake Total 3000 465 590 Output Total 1000 1525 Balance 1999 -1060 590 Weight 88.632 kg 91.626 kg Intake: IV Fluids 3000 100 0 IV Fluids 0 IVPB 0 IV Fluids 0 Oral 365 590 Output: Urine 1000 1525 Other: Estimated Void Large Medium Large Date of Last Bowel 08/07/2019 Movement # Bowel Movements 1 Estimated Stool Amount Large # Voids 3 1 ADLs: Meal Record Start: 08/07/19 11: 18 Freq: DAILY@0900,1400,1800 Status: Active Protocol: Created 08/07/19 11:18 System (Rec: 08/07/19 11:18 System [id number]) Document 08/07/19 14:00 [id number] (Rec: 08/07/19 15:04 [id number] TELE-C07) Document 08/08/19 14:00 [id number] (Rec: 08/08/19 14:08 [id number] TELE-C05) Intake and Output Start: 08/07/19 00: 50 Freq: Status: Active Protocol: Created 08/07/19 00:50 System (Rec: 08/07/19 00:50 System [id number]) Document 08/07/19 03:05 [id number] (Rec: 08/07/19 03:05 [id number] ED-C18) Document 08/07/19 09:57 [id number] (Rec: 08/07/19 09:57 [id number] ED-C31) Intake and Output Start: 08/07/19 11: 18 Freq: DAILY@0600,1400,2200 Status: Active Protocol: Created 08/07/19 11:18 System (Rec: 08/07/19 11: System [id number]) Document 08/07/19 14:00 [id number] (Rec: 08/07/19 14:22 [id number] TELE-C01) Document 08/07/19 22:00 [id number] (Rec: 08/07/19 23:12 [id number] TELE-C09) Document 08/08/19 03:56 [id number] (Rec: 08/08/19 03:58 [id number] TELE-C09) Document 08/08/19 20:58 [id number] (Rec: 08/08/19 20:59 [id number] TELE-C07) Document 08/09/19 05:05 [id number] (Rec: 08/09/19 05:06 [id number] TELE-C09) Eyes: No Scleral Icterus Ears/Nose/Mouth/Throat: Mucous Membranes Moist Neck: Trachea Midline Cardiovascular: RRR - Normal S1 and S2 Respiratory: Clear to Auscultation Abdominal: NL Sounds; No Tenderness; No Distention Neurological: Alert and Oriented x 3 - Assessment Assessment: 78yo female with HUERTA, CHF, CKD and now new onset seizure - Plan Consult Plan (MU): Palliative Plan: Long discussion with pt about goals of care. Pt has some understanding of her multiple health problems which there are no cures for and are getting worse. Pt would benefit from PATRICK but she refuses to consider it because she is worried she will end up staying in SNF. Information/brochure about hospice given to pt because she wants to stay at home. Pt is eligible for hospice. The focus would shift from treatment to symptom management. Pt wants to discuss with her family before deciding. Also explained that she can sign off hospice if she doesn't like it. I offered to meet with family if they have questions. Also discussed MOLST and left pink form with pt. Pt doesn't want CPR or to be intubated but didn't want to sign anything until she discussed it with her family. Pt is eligible for hospice with a diagnosis of HUERTA not a transplant candidate, CHF, CKD stage 3 and COPD. KPS 50%, PPS 50% - Time On Unit Date of Evaluation: 08/09/19 Hospice Consult Time in: 14:30 Hospice Consult Time Out: 15:30 Hospice Consult Time Total: 60 > 50% of Time Spend In Counseling or Coordinating Care: Yes
[2019-08-09] MEDS: cefTRIAXone(*) 1 GM in NS 0.9% 50 ML* 50 ML IVPB SCH (15:40)
[2019-08-09] MEDS: Insulin NPH(*) 1 UNITS UNIT SUBCUT SCH (18:34)
[2019-08-09] MEDS: Terazosin CAP* 5 MG PO SCH (20:45)
[2019-08-09] MEDS: metFORMIN* 500 MG TAB PO SCH (20:45)
[2019-08-09] MEDS: Insulin LISPRO* 1 UNITS UNIT SUBCUT SCH (22:40)
[2019-08-10] MEDS: Levothyroxine TAB* 25 MCG TAB PO SCH (05:25)
[2019-08-10] MEDS: SPIRIVA Respimat* (tiotropium) 2.5 mcg/inh Inhaler INH SCH (07:54)
[2019-08-10] MEDS: Insulin REGULAR(*) 1 UNITS UNIT SUBCUT SCH ×6 (09:50→18:10)
[2019-08-10] MEDS: Spironolactone TAB* 25 MG PO SCH ×2 (09:56→18:09)
[2019-08-10] MEDS: Losartan TAB* 25 MG PO SCH (09:56)
[2019-08-10] MEDS: Magnesium Chloride EC TAB* 64 MG PO SCH (09:57)
[2019-08-10] MEDS: Bumetanide TAB* 2 MG PO SCH (09:58)
[2019-08-10] MEDS: Pantoprazole TAB * 40 MG TAB PO SCH ×2 (09:58→21:28)
[2019-08-10] MEDS: Cyanocobalamin TAB* 500 MCG PO SCH (09:58)
[2019-08-10] MEDS: levETIRAcetam TAB* 500 MG PO SCH ×2 (09:58→21:27)
[2019-08-10] MEDS: Atorvastatin* 10 MG TAB PO SCH (09:59)
[2019-08-10] MEDS: Multivitamins/Minerals TAB PO SCH (10:00)
[2019-08-10] MEDS: metFORMIN* 500 MG TAB PO SCH ×2 (10:00→21:26)
[2019-08-10] MEDS: Carvedilol TAB* 25 MG PO SCH ×2 (10:00→21:28)
[2019-08-10] MEDS: Potassium Chlor TAB* 20 MEQ TAB.ER PO SCH (10:00)
[2019-08-10] MEDS: Ferrous Gluconate TAB* 324 MG TAB PO SCH ×2 (10:00→21:27)
--- NOTE | 2019-08-10 10:16 | PN ---
Subjective Date of Service: 08/10/19 Interval History: HOSPITALIST PROGRESS NOTE Patient seen and examined at bedside. Care reviewed and d/w Lula Finn RN. She is more optimistic today and open to different discharge plans. Denies CP, palpitations, dyspnea, N/V. No further episodes of tonic clonic seizures or left hand "spasms" anymore. She shared ice cream with her neighbor last night. Family History: Unchanged from Admission Social History: Unchanged from Admission Past Medical History: Unchanged from Admission Objective Active Medications: Albuterol (Ventolin 2.5 Mg/3 Ml Neb.Rachel*) 1.25 mg INH Q4H PRN PRN Reason: SOB/WHEEZING Atorvastatin Calcium (Lipitor*) 10 mg PO DAILY [facility] Last Admin: 08/10/19 09:59 Dose: 10 mg Bumetanide (Bumex Tab*) 2 mg PO DAILY [facility] Last Admin: 08/10/19 09:58 Dose: 2 mg Carvedilol (Coreg Tab*) 25 mg PO BID [facility] Last Admin: 08/10/19 10:00 Dose: 25 mg Cyanocobalamin (Vitamin B12 Tab*) 500 mcg PO DAILY [facility] Last Admin: 08/10/19 09:58 Dose: 500 mcg Dextrose (D50w Syringe 50 Ml*) 12.5 gm IV PUSH .FOR FS < 60 - SS PRN PRN Reason: FS < 60 Ferrous Gluconate (Fergon Tab*) 324 mg PO BID [facility] Last Admin: 08/10/19 10:00 Dose: 324 mg Ceftriaxone Sodium 1 gm/ (Sodium Chloride) 50 mls @ 100 mls/hr IVPB Q24H [facility] Last Admin: 08/09/19 15:40 Dose: 100 mls/hr Insulin Human Lispro (Humalog*) 0 units SUBCUT BEDTIME [facility]; Protocol Last Admin: 08/09/19 22:40 Dose: 12 units Insulin Human NPH (Insulin Nph(*)) 30 units SUBCUT QPM [facility] Insulin Human Regular (Insulin Regular(*)) 15 units SUBCUT AC [facility] Last Admin: 08/10/19 09:57 Dose: 15 units Insulin Human Regular (Insulin Regular(*)) 0 units SUBCUT AC [facility]; Protocol Last Admin: 08/10/19 09:50 Dose: Not Given Levetiracetam (Keppra Tab*) 500 mg PO BID [facility] Last Admin: 08/10/19 09:58 Dose: 500 mg Levothyroxine Sodium (Synthroid Tab*) 25 mcg PO DAILY@0600 [facility] Last Admin: 08/10/19 05:25 Dose: 25 mcg Lorazepam (Ativan Inj*) 1 mg IV PUSH Q4H PRN PRN Reason: Seizure Losartan Potassium (Cozaar Tab*) 50 mg PO DAILY [facility] Last Admin: 08/10/19 09:56 Dose: 50 mg Magnesium Chloride (Slow Mag Ec Tab*) 64 mg PO DAILY [facility] Last Admin: 08/10/19 09:57 Dose: 64 mg Metformin HCl (Glucophage*) 500 mg PO BID [facility] Last Admin: 08/10/19 10:00 Dose: 500 mg Miscellaneous (Ativan Pyxis Posadas) 1 ea N/A .ATIVAN IV POSADAS PRN PRN Reason: PYXIS POSADAS Multivitamins/Minerals (Theragran/Minerals Tab*) 1 tab PO DAILY [facility] Last Admin: 08/10/19 10:00 Dose: 1 tab Nitroglycerin (Nitroglycerin Tab 0.4 Mg*) 0.4 mg SL Q5M PRN PRN Reason: ANGINA Nystatin (Nystatin Top Powder*) 1 applic TOPICAL BID PRN PRN Reason: ITCHING Oxycodone HCl (Roxycodone Tab*) 2.5 mg PO Q6H PRN PRN Reason: Moderate Pain Last Admin: 08/07/19 13:39 Dose: 2.5 mg Pantoprazole Sodium (Protonix Tab*) 40 mg PO BID [facility] Last Admin: 08/10/19 09:58 Dose: 40 mg Potassium Chloride (Klor Con Er Tab*) 20 meq PO DAILY [facility] Last Admin: 08/10/19 10:00 Dose: 20 meq Spironolactone (Aldactone Tab*) 50 mg PO QAM [facility] Last Admin: 08/10/19 09:56 Dose: 50 mg Spironolactone (Aldactone Tab*) 25 mg PO QPM [facility] Last Admin: 08/09/19 18:35 Dose: 25 mg Terazosin HCl (Hytrin Cap*) 10 mg PO BEDTIME [facility] Last Admin: 08/09/19 20:45 Dose: 10 mg Tiotropium [place] (Spiriva Respimat 2.5 Mcg) 2 puff INH DAILY [facility] Last Admin: 08/10/19 07:54 Dose: 2 puff Triamcinolone Acetonide (Triamcinolone 0.025% Oint *) 1 applic TOPICAL DAILY PRN PRN Reason: RASH Vital Signs - 8 hr 08/10/19 08/10/19 08/10/19 03:15 07:54 07:58 Temperature 97.4 F 97.5 F Pulse Rate 57 60 60 Respiratory 20 18 20 Rate Blood Pressure 126/46 128/39 (mmHg) O2 Sat by Pulse 100 100 100 Oximetry Oxygen Devices in Use Now: Nasal Cannula Appearance: Pleasant elderly lady sitting up in a chair in NAD Eyes: No Scleral Icterus Ears/Nose/Mouth/Throat: Mucous Membranes Moist Neck: Trachea Midline Respiratory: Symmetrical Chest Expansion and Respiratory Effort, Clear to Auscultation Cardiovascular: RRR - Normal S1 and S2 Abdominal: NL Sounds; No Tenderness; No Distention Neurological: Alert and Oriented x 3, NL Muscle Strength and Tone Result Diagrams: 08/07/19 01:43 08/07/19 05:37 Microbiology and Other Data: Microbiology 08/07/19 02:20 Urine Culture - Preliminary Urine Klebsiella Pneumoniae Assess/Plan/Problems-Billing Assessment: Mrs Hansen is a 78yo F with PMH of type 2 DM, diabetice neuropathy and neprhopathy, 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 - Patient Problems (1) Seizure Comment: - Suspect her left hand "spasms" were focal seizures and she had a generalized tonic clonic seizure prior to this admission. 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 - Continue Levetiracetam 500mg BID and f/u with Dr Mcdonald as outpatient. (2) Uncontrolled diabetes mellitus Comment: - Hb A1c up to 12.5 from 7.9 in April 2019, likely secondary to non compliance. - Endocrinology input appreciated. - Uncontrolled last night due to dietary non compliance - patient educated about diet importance. Will adjust insulin dose and continue to monitor. (3) UTI (urinary tract infection) Comment: - Present on admission. - Abnormal UA but asymptomatic - culture now growing Klebsiella sensitive to Ceftriaxone. (4) DVT prophylaxis Comment: - Pharmacological prophylaxis contraindicated in the setting of chronic GI bleed. - SCDs. (5) Full code status (6) Physical deconditioning Comment: - Patient has both OT and PT needs - I recommend [facility]. Psych agreed she does not have capacity at this time to refuse [facility] placement. - Today she is open to the idea of [facility] and Hospice sign on when she returns home. - She has made progress with PT (she was Max 2 assist and is now 1 assist) - I believe if she continues to progress at [facility] to the point she can transfer independently to a wheelchair she would be able to return home and then sign on to Hospice, with plan of avoiding frequent returns to the hospital. Status and Disposition: Inpatient.
[2019-08-10] MEDS: cefTRIAXone(*) 1 GM in NS 0.9% 50 ML* 50 ML IVPB SCH (17:02)
[2019-08-10] MEDS: Insulin NPH(*) 1 UNITS UNIT SUBCUT SCH (18:10)
[2019-08-10] MEDS: Insulin LISPRO* 1 UNITS UNIT SUBCUT SCH (21:25)
[2019-08-10] MEDS: oxyCODONE TAB* 5 MG TAB PO PRN (21:25)
[2019-08-10] MEDS: Terazosin CAP* 5 MG PO SCH (21:26)
[2019-08-11] MEDS: Levothyroxine TAB* 25 MCG TAB PO SCH (05:40)
[2019-08-11] MEDS: SPIRIVA Respimat* (tiotropium) 2.5 mcg/inh Inhaler INH SCH (07:33)
[2019-08-11] MEDS: Losartan TAB* 25 MG PO SCH (08:21)
[2019-08-11] MEDS: Multivitamins/Minerals TAB PO SCH (08:21)
[2019-08-11] MEDS: Ferrous Gluconate TAB* 324 MG TAB PO SCH ×2 (08:21→20:00)
[2019-08-11] MEDS: metFORMIN* 500 MG TAB PO SCH ×2 (08:21→20:00)
[2019-08-11] MEDS: Potassium Chlor TAB* 20 MEQ TAB.ER PO SCH (08:21)
[2019-08-11] MEDS: Atorvastatin* 10 MG TAB PO SCH (08:22)
[2019-08-11] MEDS: Bumetanide TAB* 2 MG PO SCH (08:22)
[2019-08-11] MEDS: Cyanocobalamin TAB* 500 MCG PO SCH (08:22)
[2019-08-11] MEDS: Carvedilol TAB* 25 MG PO SCH ×2 (08:22→19:59)
[2019-08-11] MEDS: Pantoprazole TAB * 40 MG TAB PO SCH ×2 (08:22→19:59)
[2019-08-11] MEDS: Magnesium Chloride EC TAB* 64 MG PO SCH (08:22)
[2019-08-11] MEDS: levETIRAcetam TAB* 500 MG PO SCH ×2 (08:22→19:59)
[2019-08-11] MEDS: Spironolactone TAB* 25 MG PO SCH ×2 (08:22→16:54)
[2019-08-11] MEDS: Insulin REGULAR(*) 1 UNITS UNIT SUBCUT SCH ×6 (11:03→16:55)
--- NOTE | 2019-08-11 14:28 | PN ---
Subjective Date of Service: 08/11/19 Interval History: Ms. Hansen states she is doing well today. She is agreeable to discharge and is hoping for placement to [facility]. She denies CP, SOB, abd pain, n/v/d, seizure-like activity. No events overnight per nursing. Family History: Unchanged from Admission Social History: Unchanged from Admission Past Medical History: Unchanged from Admission Objective Active Medications: Albuterol (Ventolin 2.5 Mg/3 Ml Neb.Rachel*) 1.25 mg INH Q4H PRN PRN Reason: SOB/WHEEZING Atorvastatin Calcium (Lipitor*) 10 mg PO DAILY [facility] Last Admin: 08/11/19 08:22 Dose: 10 mg Bumetanide (Bumex Tab*) 2 mg PO DAILY [facility] Last Admin: 08/11/19 08:22 Dose: 2 mg Carvedilol (Coreg Tab*) 25 mg PO BID [facility] Last Admin: 08/11/19 08:22 Dose: 25 mg Cyanocobalamin (Vitamin B12 Tab*) 500 mcg PO DAILY [facility] Last Admin: 08/11/19 08:22 Dose: 500 mcg Dextrose (D50w Syringe 50 Ml*) 12.5 gm IV PUSH .FOR FS < 60 - SS PRN PRN Reason: FS < 60 Ferrous Gluconate (Fergon Tab*) 324 mg PO BID [facility] Last Admin: 08/11/19 08:21 Dose: 324 mg Ceftriaxone Sodium 1 gm/ (Sodium Chloride) 50 mls @ 100 mls/hr IVPB Q24H [facility] Last Admin: 08/10/19 17:02 Dose: 100 mls/hr Insulin Human Lispro (Humalog*) 0 units SUBCUT BEDTIME [facility]; Protocol Last Admin: 08/10/19 21:25 Dose: 12 units Insulin Human NPH (Insulin Nph(*)) 30 units SUBCUT QPM [facility] Last Admin: 08/10/19 18:10 Dose: 30 unit Insulin Human Regular (Insulin Regular(*)) 15 units SUBCUT AC [facility] Last Admin: 08/11/19 11:48 Dose: 15 units Insulin Human Regular (Insulin Regular(*)) 0 units SUBCUT AC [facility]; Protocol Last Admin: 08/11/19 11:49 Dose: 12 units Levetiracetam (Keppra Tab*) 500 mg PO BID [facility] Last Admin: 02/15/20 08:22 Dose: 500 mg Levothyroxine Sodium (Synthroid Tab*) 25 mcg PO DAILY@0600 [facility] Last Admin: 08/11/19 05:40 Dose: 25 mcg Lorazepam (Ativan Inj*) 1 mg IV PUSH Q4H PRN PRN Reason: Seizure Losartan Potassium (Cozaar Tab*) 50 mg PO DAILY [facility] Last Admin: 08/11/19 08:21 Dose: 50 mg Magnesium Chloride (Slow Mag Ec Tab*) 64 mg PO DAILY [facility] Last Admin: 08/11/19 08:22 Dose: 64 mg Metformin HCl (Glucophage*) 500 mg PO BID [facility] Last Admin: 08/11/19 08:21 Dose: 500 mg Miscellaneous (Ativan Pyxis Posadas) 1 ea N/A .ATIVAN IV POSADAS PRN PRN Reason: PYXIS POSADAS Multivitamins/Minerals (Theragran/Minerals Tab*) 1 tab PO DAILY [facility] Last Admin: 08/11/19 08:21 Dose: 1 tab Nitroglycerin (Nitroglycerin Tab 0.4 Mg*) 0.4 mg SL Q5M PRN PRN Reason: ANGINA Nystatin (Nystatin Top Powder*) 1 applic TOPICAL BID PRN PRN Reason: ITCHING Oxycodone HCl (Roxycodone Tab*) 2.5 mg PO Q6H PRN PRN Reason: Moderate Pain Last Admin: 08/10/19 21:25 Dose: 2.5 mg Pantoprazole Sodium (Protonix Tab*) 40 mg PO BID [facility] Last Admin: 08/11/19 08:22 Dose: 40 mg Potassium Chloride (Klor Con Er Tab*) 20 meq PO DAILY [facility] Last Admin: 08/11/19 08:21 Dose: 20 meq Spironolactone (Aldactone Tab*) 50 mg PO QAM [facility] Last Admin: 08/11/19 08:22 Dose: 50 mg Spironolactone (Aldactone Tab*) 25 mg PO QPM [facility] Last Admin: 08/10/19 18:09 Dose: 25 mg Terazosin HCl (Hytrin Cap*) 10 mg PO BEDTIME [facility] Last Admin: 08/10/19 21:26 Dose: 10 mg Tiotropium [place] (Spiriva Respimat 2.5 Mcg) 2 puff INH DAILY [facility] Last Admin: 08/11/19 07:33 Dose: 2 puff Triamcinolone Acetonide (Triamcinolone 0.025% Oint *) 1 applic TOPICAL DAILY PRN PRN Reason: RASH Vital Signs: Temp Pulse Resp BP Pulse Ox 97.9 F 63 18 113/34 100 08/11/19 11:18 08/11/19 11:18 08/11/19 11:18 08/11/19 11:18 08/11/19 11:18 Oxygen Devices in Use Now: Nasal Cannula Appearance: Ms. Hansen is an elderly black woman who is sitting in chair with LE at floor. She appears comfortable, in no acute distress. Eyes: No Scleral Icterus, PERRLA Ears/Nose/Mouth/Throat: NL Teeth, Lips, Gums, Clear Oropharnyx, Mucous Membranes Moist Neck: NL Appearance and Movements; NL JVP, Trachea Midline Respiratory: Symmetrical Chest Expansion and Respiratory Effort, Clear to Auscultation Cardiovascular: NL Sounds; No Murmurs; No JVD, RRR, - - trace b/l LE edema Abdominal: NL Sounds; No Tenderness; No Distention, No Hepatosplenomegaly Extremities: No Clubbing, Cyanosis Neurological: Alert and Oriented x 3 Result Diagrams: 08/07/19 01:43 08/07/19 05:37 Additional Lab and Data: Laboratory Tests 08/07/19 01:41 Total Protein 7.7 Albumin 3.4 Microbiology and Other Data: Microbiology 08/07/19 02:20 Urine Culture - Preliminary Urine Klebsiella Pneumoniae Assess/Plan/Problems-Billing Assessment: Mrs Hansen is a 78yo F with PMH of type 2 DM, diabetice neuropathy and neprhopathy, 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 - Patient Problems (1) Physical deconditioning Comment: - Patient has both OT and PT needs - I recommend [facility]. Psych agreed she does not have capacity at this time to refuse [facility] placement. - She remains open to the idea of [facility] and Hospice sign on when she returns home. - She has made progress with PT (she was Max 2 assist and is now 1 assist) - I believe if she continues to progress at [facility] to the point she can transfer independently to a wheelchair she would be able to return home and then sign on to Hospice, with plan of avoiding frequent returns to the hospital. (2) Uncontrolled diabetes mellitus Comment: - Hb A1c up to 12.5 from 7.9 in April 2019, likely secondary to non compliance - Endocrinology input appreciated - Uncontrolled 08/09-14 due to dietary non compliance - patient educated about diet importance (3) Seizure Comment: - Suspect her left hand "spasms" were focal seizures and she had a generalized tonic clonic seizure prior to this admission. 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 - Continue Levetiracetam 500mg BID and f/u with Dr Mcdonald as outpatient. (4) UTI (urinary tract infection) Comment: - Present on admission - Abnormal UA but asymptomatic - culture now growing Klebsiella sensitive to Ceftriaxone -continue ceftriaxone (day 4) (5) Heart failure Comment: -EF 45-50%, grade 2 diastolic dysfunction -does not appear to be in exacerbation -continue home medications spironolactone, bumetanide, losartan, metoprolol (6) COPD (chronic obstructive pulmonary disease) Comment: -on home dose of supplemental O2 -does not appear to be in exacerbation -continue home inhalers (7) HTN (hypertension) Comment: -well controlled 110 - 120's -continue home diuretics, carvedilol, losartan (8) HLD (hyperlipidemia) Comment: -continue atorvastatin (9) Hypothyroidism Comment: -continue levothyroxine (10) DVT prophylaxis Comment: -Pharmacological prophylaxis contraindicated in the setting of chronic GI bleed -SCDs (11) DNR (do not resuscitate) Status and Disposition: Inpatient. Plan for d/c to [facility] when stable.
[2019-08-11] MEDS: cefTRIAXone(*) 1 GM in NS 0.9% 50 ML* 50 ML IVPB SCH (15:17)
[2019-08-11] MEDS: Insulin NPH(*) 1 UNITS UNIT SUBCUT SCH (16:55)
[2019-08-11] MEDS: Terazosin CAP* 5 MG PO SCH (20:00)
[2019-08-11] MEDS: Insulin LISPRO* 1 UNITS UNIT SUBCUT SCH (21:12)
[2019-08-11] MEDS: oxyCODONE TAB* 5 MG TAB PO PRN (21:17)
[2019-08-12 05:36] LABS: Calcium 8.3 mg/dL (8.6-10.3); Potassium 4.8 mmol/L (3.5-5.0)
[2019-08-12 05:42] LABS: BUN/Creatinine Ratio 34.9 (8-20); EGFR African American 31.2 (>60); EGFR Non-African American 25.8 (>60)
[2019-08-12] MEDS: Levothyroxine TAB* 25 MCG TAB PO SCH (05:46)
[2019-08-12 05:49] LABS: ABS Basophils 0.1 10^3/ul (0-0.2); ABS Eosinophils 0.2 10^3/ul (0-0.6); ABS Lymphocytes 0.7 10^3/ul (1.0-4.8); ABS Monocytes 0.3 10^3/ul (0-0.8); ABS Neutrophils 3.5 10^3/ul (1.5-7.7); Eosinophil % 4.6 %; Hematocrit 27 % (35-47); Hemoglobin 8.5 g/dL (12.0-16.0); Lymphocyte % 14.3 %; Mean Corpuscular HGB Conc 31 g/dL (31-36); Mean Corpuscular Hemoglobin 24 pg (27-31); Mean Corpuscular Volume 78 fL (80-97); Mean Platelet Volume 10.9 fL (7.4-10.4); Nucleated Red Blood Cells % 0.1; Platelet Count 109 10^3/uL (150-450); Red Blood Count 3.52 10^6 /uL (3.70-4.87); Red Cell Distribution Width 21 % (10-15); White Blood Count 4.8 10^3/uL (3.5-10.8)
[2019-08-12] MEDS: Insulin REGULAR(*) 1 UNITS UNIT SUBCUT SCH ×6 (08:10→17:27)
[2019-08-12] MEDS: Magnesium Chloride EC TAB* 64 MG PO SCH (08:11)
[2019-08-12] MEDS: Cyanocobalamin TAB* 500 MCG PO SCH (08:12)
[2019-08-12] MEDS: Multivitamins/Minerals TAB PO SCH (08:12)
[2019-08-12] MEDS: Spironolactone TAB* 25 MG PO SCH ×2 (08:12→17:28)
[2019-08-12] MEDS: Potassium Chlor TAB* 20 MEQ TAB.ER PO SCH (08:12)
[2019-08-12] MEDS: levETIRAcetam TAB* 500 MG PO SCH ×2 (08:12→20:41)
[2019-08-12] MEDS: Atorvastatin* 10 MG TAB PO SCH (08:12)
[2019-08-12] MEDS: Losartan TAB* 25 MG PO SCH (08:13)
[2019-08-12] MEDS: Carvedilol TAB* 25 MG PO SCH ×2 (08:13→20:41)
[2019-08-12] MEDS: Ferrous Gluconate TAB* 324 MG TAB PO SCH ×2 (08:13→20:41)
[2019-08-12] MEDS: Pantoprazole TAB * 40 MG TAB PO SCH ×2 (08:13→20:41)
[2019-08-12] MEDS: metFORMIN* 500 MG TAB PO SCH ×2 (08:13→20:41)
[2019-08-12] MEDS: SPIRIVA Respimat* (tiotropium) 2.5 mcg/inh Inhaler INH SCH (10:13)
[2019-08-12] MEDS: Bumetanide TAB* 2 MG PO SCH (13:34)
--- NOTE | 2019-08-12 15:30 | PN ---
Subjective Date of Service: 08/12/19 Interval History: Ms. Hansen c/o b/l shoulder pain; she states she has had L shoulder pain for "years," but R shoulder pain is new since seizure activity. She c/o decreased ROM in R shoulder (has chronic decreased ROM L shoulder). She has no other complaints today. Family History: Unchanged from Admission Social History: Unchanged from Admission Past Medical History: Unchanged from Admission Objective Active Medications: Albuterol (Ventolin 2.5 Mg/3 Ml Neb.Rachel*) 1.25 mg INH Q4H PRN PRN Reason: SOB/WHEEZING Atorvastatin Calcium (Lipitor*) 10 mg PO DAILY [facility] Last Admin: 08/12/19 08:12 Dose: 10 mg Bumetanide (Bumex Tab*) 2 mg PO DAILY [facility] Last Admin: 08/12/19 13:34 Dose: Not Given Carvedilol (Coreg Tab*) 25 mg PO BID [facility] Last Admin: 08/12/19 08:13 Dose: 25 mg Cyanocobalamin (Vitamin B12 Tab*) 500 mcg PO DAILY [facility] Last Admin: 08/12/19 08:12 Dose: 500 mcg Dextrose (D50w Syringe 50 Ml*) 12.5 gm IV PUSH .FOR FS < 60 - SS PRN PRN Reason: FS < 60 Ferrous Gluconate (Fergon Tab*) 324 mg PO BID [facility] Last Admin: 08/12/19 08:13 Dose: 324 mg Ceftriaxone Sodium 1 gm/ (Sodium Chloride) 50 mls @ 100 mls/hr IVPB Q24H [facility] Last Admin: 08/11/19 15:17 Dose: 100 mls/hr Insulin Human Lispro (Humalog*) 0 units SUBCUT BEDTIME [facility]; Protocol Last Admin: 08/11/19 21:12 Dose: 6 units Insulin Human NPH (Insulin Nph(*)) 30 units SUBCUT QPM [facility] Last Admin: 08/11/19 16:55 Dose: 30 unit Insulin Human Regular (Insulin Regular(*)) 15 units SUBCUT AC [facility] Last Admin: 08/12/19 13:36 Dose: 15 units Insulin Human Regular (Insulin Regular(*)) 0 units SUBCUT AC [facility]; Protocol Last Admin: 08/12/19 13:36 Dose: 6 units Levetiracetam (Keppra Tab*) 500 mg PO BID [facility] Last Admin: 08/12/19 08:12 Dose: 500 mg Levothyroxine Sodium (Synthroid Tab*) 25 mcg PO DAILY@0600 [facility] Last Admin: 08/12/19 05:46 Dose: 25 mcg Lorazepam (Ativan Inj*) 1 mg IV PUSH Q4H PRN PRN Reason: Seizure Losartan Potassium (Cozaar Tab*) 50 mg PO DAILY [facility] Last Admin: 08/12/19 08:13 Dose: 50 mg Magnesium Chloride (Slow Mag Ec Tab*) 64 mg PO DAILY [facility] Last Admin: 08/12/19 08:11 Dose: 64 mg Metformin HCl (Glucophage*) 500 mg PO BID [facility] Last Admin: 08/12/19 08:13 Dose: 500 mg Miscellaneous (Ativan Pyxis Posadas) 1 ea N/A .ATIVAN IV POSADAS PRN PRN Reason: PYXIS POSADAS Multivitamins/Minerals (Theragran/Minerals Tab*) 1 tab PO DAILY [facility] Last Admin: 08/12/19 08:12 Dose: 1 tab Nitroglycerin (Nitroglycerin Tab 0.4 Mg*) 0.4 mg SL Q5M PRN PRN Reason: ANGINA Nystatin (Nystatin Top Powder*) 1 applic TOPICAL BID PRN PRN Reason: ITCHING Oxycodone HCl (Roxycodone Tab*) 2.5 mg PO Q6H PRN PRN Reason: Moderate Pain Last Admin: 08/11/19 21:17 Dose: 2.5 mg Pantoprazole Sodium (Protonix Tab*) 40 mg PO BID [facility] Last Admin: 08/12/19 08:13 Dose: 40 mg Potassium Chloride (Klor Con Er Tab*) 20 meq PO DAILY [facility] Last Admin: 08/12/19 08:12 Dose: 20 meq Spironolactone (Aldactone Tab*) 50 mg PO QAM [facility] Last Admin: 08/12/19 08:12 Dose: 50 mg Spironolactone (Aldactone Tab*) 25 mg PO QPM [facility] Last Admin: 08/11/19 16:54 Dose: 25 mg Terazosin HCl (Hytrin Cap*) 10 mg PO BEDTIME [facility] Last Admin: 08/11/19 20:00 Dose: 10 mg Tiotropium [place] (Spiriva Respimat 2.5 Mcg) 2 puff INH DAILY [facility] Last Admin: 08/12/19 10:13 Dose: 2 puff Triamcinolone Acetonide (Triamcinolone 0.025% Oint *) 1 applic TOPICAL DAILY PRN PRN Reason: RASH Vital Signs: Temp Pulse Resp BP Pulse Ox 97.7 F 58 15 110/44 99 08/12/19 03:10 08/12/19 10:15 08/12/19 10:15 08/12/19 03:10 08/12/19 10:15 Oxygen Devices in Use Now: Nasal Cannula Appearance: Ms. Hansen is an elderly black woman who is sitting up in chair. She appears comfortable, and in no acute distress. Eyes: No Scleral Icterus, PERRLA Ears/Nose/Mouth/Throat: NL Teeth, Lips, Gums, Clear Oropharnyx, Mucous Membranes Moist Neck: NL Appearance and Movements; NL JVP, Trachea Midline Respiratory: Symmetrical Chest Expansion and Respiratory Effort, Clear to Auscultation Cardiovascular: NL Sounds; No Murmurs; No JVD, RRR, No Edema Abdominal: NL Sounds; No Tenderness; No Distention, No Hepatosplenomegaly Extremities: No Clubbing, Cyanosis, - - decreased ROM in b/l UE at shoulder; TTP at medial scapula border b/l, nontender at shoulder; strength 5/5 UE b/l, equal ergonomist strength Neurological: Alert and Oriented x 3 Result Diagrams: 08/12/19 04:38 08/12/19 04:38 Additional Lab and Data: Laboratory Tests 08/07/19 01:41 Total Protein 7.7 Albumin 3.4 Microbiology and Other Data: Microbiology 08/07/19 02:20 Urine Culture - Preliminary Urine Klebsiella Pneumoniae Assess/Plan/Problems-Billing Assessment: Mrs Hansen is a 78yo F with PMH of type 2 DM, diabetice neuropathy and neprhopathy, 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 - Patient Problems (1) Physical deconditioning Comment: - Patient has both OT and PT needs - I recommend [facility]. Psych agreed she does not have capacity at this time to refuse [facility] placement. - She remains open to the idea of [facility] and Hospice sign on when she returns home. - She has made progress with PT (she was max 2 assist and is now 1 assist) - I believe if she continues to progress at [facility] to the point she can transfer independently to a wheelchair she would be able to return home and then sign on to Hospice, with plan of avoiding frequent returns to the hospital. (2) Uncontrolled diabetes mellitus Comment: - Hb A1c up to 12.5 from 7.9 in April 2019, likely secondary to non compliance - Endocrinology input appreciated - Uncontrolled 08/09-14 due to dietary non compliance - patient educated about diet importance (3) Right shoulder pain Comment: -c/o new onset R shoulder pain, decreased ROM -R shoulder XR pending (4) Seizure Comment: - Suspect her left hand "spasms" were focal seizures and she had a generalized tonic clonic seizure prior to this admission. 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 - Continue Levetiracetam 500mg BID and f/u with Dr Mcdonald as outpatient. (5) UTI (urinary tract infection) Comment: - Present on admission - Abnormal UA but asymptomatic - culture growing Klebsiella sensitive to Ceftriaxone -continue ceftriaxone (day 5) (6) Heart failure Comment: -EF 45-50%, grade 2 diastolic dysfunction -does not appear to be in exacerbation -continue home medications spironolactone, bumetanide, losartan, metoprolol (7) COPD (chronic obstructive pulmonary disease) Comment: -on home dose of supplemental O2 -does not appear to be in exacerbation -continue home inhalers (8) HTN (hypertension) Comment: -well controlled 110 - 120's -continue home diuretics, carvedilol, losartan (9) HLD (hyperlipidemia) Comment: -continue atorvastatin (10) Hypothyroidism Comment: -continue levothyroxine (11) DVT prophylaxis Comment: -Pharmacological prophylaxis contraindicated in the setting of chronic GI bleed -SCDs (12) DNR (do not resuscitate) Status and Disposition: Inpatient. Plan for d/c to [facility] when stable.
[2019-08-12] MEDS: cefTRIAXone(*) 1 GM in NS 0.9% 50 ML* 50 ML IVPB SCH (16:27)
[2019-08-12] MEDS: Insulin NPH(*) 1 UNITS UNIT SUBCUT SCH (17:27)
[2019-08-12] MEDS: Insulin LISPRO* 1 UNITS UNIT SUBCUT SCH (20:40)
[2019-08-12] MEDS: Terazosin CAP* 5 MG PO SCH (20:41)
[2019-08-12] MEDS: oxyCODONE TAB* 5 MG TAB PO PRN (23:46)
[2019-08-13] MEDS: Levothyroxine TAB* 25 MCG TAB PO SCH (04:06)
[2019-08-13] MEDS: Magnesium Chloride EC TAB* 64 MG PO SCH (07:39)
[2019-08-13] MEDS: Bumetanide TAB* 2 MG PO SCH (07:39)
[2019-08-13] MEDS: Carvedilol TAB* 25 MG PO SCH ×2 (07:39→20:59)
[2019-08-13] MEDS: Spironolactone TAB* 25 MG PO SCH ×2 (07:39→18:23)
[2019-08-13] MEDS: Cyanocobalamin TAB* 500 MCG PO SCH (07:39)
[2019-08-13] MEDS: Potassium Chlor TAB* 20 MEQ TAB.ER PO SCH (07:40)
[2019-08-13] MEDS: Multivitamins/Minerals TAB PO SCH (07:40)
[2019-08-13] MEDS: Pantoprazole TAB * 40 MG TAB PO SCH ×2 (07:40→20:59)
[2019-08-13] MEDS: metFORMIN* 500 MG TAB PO SCH ×2 (07:40→20:59)
[2019-08-13] MEDS: levETIRAcetam TAB* 500 MG PO SCH ×2 (07:40→20:59)
[2019-08-13] MEDS: Ferrous Gluconate TAB* 324 MG TAB PO SCH ×2 (07:40→20:59)
[2019-08-13] MEDS: Losartan TAB* 25 MG PO SCH (07:41)
[2019-08-13] MEDS: Atorvastatin* 10 MG TAB PO SCH (07:41)
[2019-08-13] MEDS: SPIRIVA Respimat* (tiotropium) 2.5 mcg/inh Inhaler INH SCH (08:13)
[2019-08-13] MEDS: Insulin REGULAR(*) 1 UNITS UNIT SUBCUT SCH ×6 (12:10→18:23)
[2019-08-13] MEDS: oxyCODONE TAB* 5 MG TAB PO PRN (15:56)
--- NOTE | 2019-08-13 15:56 | PN ---
Subjective Date of Service: 08/13/19 Interval History: Denies any complaints Family History: Unchanged from Admission Social History: Unchanged from Admission Past Medical History: Unchanged from Admission Objective Active Medications: Albuterol (Ventolin 2.5 Mg/3 Ml Neb.Rachel*) 1.25 mg INH Q4H PRN PRN Reason: SOB/WHEEZING Atorvastatin Calcium (Lipitor*) 10 mg PO DAILY [facility] Last Admin: 08/13/19 07:41 Dose: 10 mg Bumetanide (Bumex Tab*) 2 mg PO DAILY [facility] Last Admin: 08/13/19 07:39 Dose: 2 mg Carvedilol (Coreg Tab*) 25 mg PO BID [facility] Last Admin: 08/13/19 07:39 Dose: 25 mg Cyanocobalamin (Vitamin B12 Tab*) 500 mcg PO DAILY [facility] Last Admin: 08/13/19 07:39 Dose: 500 mcg Dextrose (D50w Syringe 50 Ml*) 12.5 gm IV PUSH .FOR FS < 60 - SS PRN PRN Reason: FS < 60 Ferrous Gluconate (Fergon Tab*) 324 mg PO BID [facility] Last Admin: 08/13/19 07:40 Dose: 324 mg Ceftriaxone Sodium 1 gm/ (Sodium Chloride) 50 mls @ 100 mls/hr IVPB Q24H [facility] Last Admin: 08/12/19 16:27 Dose: 100 mls/hr Insulin Human Lispro (Humalog*) 0 units SUBCUT BEDTIME [facility]; Protocol Last Admin: 08/12/19 20:40 Dose: 9 units Insulin Human NPH (Insulin Nph(*)) 30 units SUBCUT QPM [facility] Last Admin: 08/12/19 17:27 Dose: 30 unit Insulin Human Regular (Insulin Regular(*)) 15 units SUBCUT AC [facility] Last Admin: 08/13/19 13:17 Dose: 15 units Insulin Human Regular (Insulin Regular(*)) 0 units SUBCUT AC [facility]; Protocol Last Admin: 08/13/19 13:17 Dose: 3 units Levetiracetam (Keppra Tab*) 500 mg PO BID [facility] Last Admin: 08/13/19 07:40 Dose: 500 mg Levothyroxine Sodium (Synthroid Tab*) 25 mcg PO DAILY@0600 [facility] Last Admin: 08/13/19 04:06 Dose: 25 mcg Lorazepam (Ativan Inj*) 1 mg IV PUSH Q4H PRN PRN Reason: Seizure Losartan Potassium (Cozaar Tab*) 50 mg PO DAILY [facility] Last Admin: 08/13/19 07:41 Dose: 50 mg Magnesium Chloride (Slow Mag Ec Tab*) 64 mg PO DAILY [facility] Last Admin: 08/13/19 07:39 Dose: 64 mg Metformin HCl (Glucophage*) 500 mg PO BID [facility] Last Admin: 08/13/19 07:40 Dose: 500 mg Miscellaneous (Ativan Pyxis Posadas) 1 ea N/A .ATIVAN IV POSADAS PRN PRN Reason: PYXIS POSADAS Multivitamins/Minerals (Theragran/Minerals Tab*) 1 tab PO DAILY [facility] Last Admin: 08/13/19 07:40 Dose: 1 tab Nitroglycerin (Nitroglycerin Tab 0.4 Mg*) 0.4 mg SL Q5M PRN PRN Reason: ANGINA Nystatin (Nystatin Top Powder*) 1 applic TOPICAL BID PRN PRN Reason: ITCHING Oxycodone HCl (Roxycodone Tab*) 2.5 mg PO Q6H PRN PRN Reason: Moderate Pain Last Admin: 08/12/19 23:46 Dose: 2.5 mg Pantoprazole Sodium (Protonix Tab*) 40 mg PO BID [facility] Last Admin: 08/13/19 07:40 Dose: 40 mg Potassium Chloride (Klor Con Er Tab*) 20 meq PO DAILY [facility] Last Admin: 08/13/19 07:40 Dose: 20 meq Spironolactone (Aldactone Tab*) 50 mg PO QAM [facility] Last Admin: 08/13/19 07:39 Dose: 50 mg Spironolactone (Aldactone Tab*) 25 mg PO QPM [facility] Last Admin: 08/12/19 17:28 Dose: 25 mg Terazosin HCl (Hytrin Cap*) 10 mg PO BEDTIME [facility] Last Admin: 08/12/19 20:41 Dose: 10 mg Tiotropium [place]ata (Spiriva Respimat 2.5 Mcg) 2 puff INH DAILY [facility] Last Admin: 08/13/19 08:13 Dose: 2 puff Triamcinolone Acetonide (Triamcinolone 0.025% Oint *) 1 applic TOPICAL DAILY PRN PRN Reason: RASH Vital Signs - 8 hr 08/13/19 08/13/19 08:14 11:15 Temperature 97.7 F Pulse Rate 55 53 Respiratory 16 16 Rate Blood Pressure 119/44 (mmHg) O2 Sat by Pulse 97 100 Oximetry Oxygen Devices in Use Now: Nasal Cannula Eyes: No Scleral Icterus Ears/Nose/Mouth/Throat: NL Teeth, Lips, Gums Neck: NL Appearance and Movements; NL JVP Respiratory: Symmetrical Chest Expansion and Respiratory Effort Cardiovascular: NL Sounds; No Murmurs; No JVD Extremities: No Edema Neurological: Alert and Oriented x 3 Result Diagrams: 08/12/19 04:38 08/12/19 04:38 Additional Lab and Data: Laboratory Tests 08/07/19 01:41 Total Protein 7.7 Albumin 3.4 Microbiology and Other Data: Microbiology 08/07/19 02:20 Urine Culture - Preliminary Urine Klebsiella Pneumoniae Assess/Plan/Problems-Billing Assessment: Mrs Hansen is a 78yo F with PMH of type 2 DM, diabetice neuropathy and neprhopathy, 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 - Patient Problems (1) Seizure Current Visit: Yes Status: Acute Code(s): R56.9 - UNSPECIFIED CONVULSIONS SNOMED Code(s): 49846404 Comment: - Suspect her left hand "spasms" were focal seizures and she had a generalized tonic clonic seizure prior to this admission. 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 - Continue Levetiracetam 500mg BID and f/u with Dr Mcdonald as outpatient. (2) HLD (hyperlipidemia) Current Visit: Yes Status: Acute Code(s): E78.5 - HYPERLIPIDEMIA, UNSPECIFIED SNOMED Code(s): 89825548 Comment: -continue atorvastatin (3) HTN (hypertension) Current Visit: Yes Status: Acute Code(s): I10 - ESSENTIAL (PRIMARY) HYPERTENSION SNOMED Code(s): 15889699 Comment: -well controlled 110 - 120's -continue home diuretics, carvedilol, losartan (4) Heart failure Current Visit: Yes Status: Acute Code(s): I50.9 - HEART FAILURE, UNSPECIFIED SNOMED Code(s): 90489310 Comment: -EF 45-50%, grade 2 diastolic dysfunction -does not appear to be in exacerbation -continue home medications spironolactone, bumetanide, losartan, metoprolol (5) Hypothyroidism Current Visit: Yes Status: Acute Code(s): E03.9 - HYPOTHYROIDISM, UNSPECIFIED SNOMED Code(s): 63188571 Comment: -continue levothyroxine (6) Physical deconditioning Current Visit: Yes Status: Acute Code(s): R53.81 - OTHER MALAISE SNOMED Code(s): 67496161950297 Comment: - Patient has both OT and PT needs - I recommend [facility]. Psych agreed she does not have capacity at this time to refuse [facility] placement. - She remains open to the idea of [facility] and Hospice sign on when she returns home. - She has made progress with PT (she was max 2 assist and is now 1 assist) - I believe if she continues to progress at [facility] to the point she can transfer independently to a wheelchair she would be able to return home and then sign on to Hospice, with plan of avoiding frequent returns to the hospital. (7) Right shoulder pain Current Visit: Yes Status: Acute Code(s): M25.511 - PAIN IN RIGHT SHOULDER SNOMED Code(s): 58386230 Comment: -c/o new onset R shoulder pain, decreased ROM -R shoulder XR (8) UTI (urinary tract infection) Current Visit: Yes Status: Acute Comment: - Present on admission - Abnormal UA but asymptomatic - culture growing Klebsiella sensitive to Ceftriaxone -continue ceftriaxone (day 5) (9) Uncontrolled diabetes mellitus Current Visit: Yes Status: Acute Code(s): E11.65 - TYPE 2 DIABETES MELLITUS WITH HYPERGLYCEMIA SNOMED Code(s): 46083949 Comment: - Hb A1c up to 12.5 from 7.9 in April 2019, likely secondary to non compliance - Endocrinology input appreciated - Uncontrolled 08/09-14 due to dietary non compliance - patient educated about diet importance (10) DVT prophylaxis Current Visit: Yes Status: Acute Code(s): SEJ5658 - SNOMED Code(s): 374098209 Comment: -Pharmacological prophylaxis contraindicated in the setting of chronic GI bleed -SCDs Status and Disposition: Inpatient. Plan for d/c to [facility] when stable.
[2019-08-13] MEDS: cefTRIAXone(*) 1 GM in NS 0.9% 50 ML* 50 ML IVPB SCH (15:57)
[2019-08-13] MEDS: Insulin NPH(*) 1 UNITS UNIT SUBCUT SCH (18:22)
[2019-08-13] MEDS: Insulin LISPRO* 1 UNITS UNIT SUBCUT SCH (20:58)
[2019-08-13] MEDS: Terazosin CAP* 5 MG PO SCH (20:59)
[2019-08-14] MEDS: Levothyroxine TAB* 25 MCG TAB PO SCH (05:14)
[2019-08-14 05:55] LABS: Calcium 7.9 mg/dL (8.6-10.3); Potassium 5.3 mmol/L (3.5-5.0)
[2019-08-14 05:58] LABS: ABS Eosinophils 0.2 10^3/ul (0-0.6); ABS Lymphocytes 0.6 10^3/ul (1.0-4.8); ABS Monocytes 0.6 10^3/ul (0-0.8); ABS Neutrophils 3.5 10^3/ul (1.5-7.7); Eosinophil % 3.7 %; Hematocrit 25 % (35-47); Hemoglobin 8.1 g/dL (12.0-16.0); Lymphocyte % 11.7 %; Mean Corpuscular HGB Conc 33 g/dL (31-36); Mean Corpuscular Hemoglobin 25 pg (27-31); Mean Corpuscular Volume 77 fL (80-97); Red Blood Count 3.21 10^6 /uL (3.70-4.87); Red Cell Distribution Width 20 % (10-15); White Blood Count 4.9 10^3/uL (3.5-10.8)
[2019-08-14 06:00] LABS: BUN/Creatinine Ratio 40.2 (8-20); EGFR African American 26.3 (>60); EGFR Non-African American 21.8 (>60)
[2019-08-14 06:49] LABS: Mean Platelet Volume 10.1 fL (7.4-10.4); Platelet Count 86 10^3/uL (150-450)
[2019-08-14] MEDS: levETIRAcetam TAB* 500 MG PO SCH ×2 (08:37→20:07)
[2019-08-14] MEDS: Pantoprazole TAB * 40 MG TAB PO SCH ×2 (08:37→20:07)
[2019-08-14] MEDS: Carvedilol TAB* 25 MG PO SCH ×2 (08:37→20:07)
[2019-08-14] MEDS: Losartan TAB* 25 MG PO SCH (08:38)
[2019-08-14] MEDS: Spironolactone TAB* 25 MG PO SCH (08:38)
[2019-08-14] MEDS: Magnesium Chloride EC TAB* 64 MG PO SCH (08:38)
[2019-08-14] MEDS: Bumetanide TAB* 2 MG PO SCH (08:38)
[2019-08-14] MEDS: Atorvastatin* 10 MG TAB PO SCH (08:44)
[2019-08-14] MEDS: metFORMIN* 500 MG TAB PO SCH (08:44)
[2019-08-14] MEDS: Cyanocobalamin TAB* 500 MCG PO SCH (08:44)
[2019-08-14] MEDS: Ferrous Gluconate TAB* 324 MG TAB PO SCH ×2 (08:44→20:06)
[2019-08-14] MEDS: Insulin REGULAR(*) 1 UNITS UNIT SUBCUT SCH ×6 (08:45→17:42)
[2019-08-14] MEDS: Multivitamins/Minerals TAB PO SCH (08:45)
[2019-08-14] MEDS: Potassium Chlor TAB* 20 MEQ TAB.ER PO SCH (08:46)
[2019-08-14] MEDS: SPIRIVA Respimat* (tiotropium) 2.5 mcg/inh Inhaler INH SCH (09:07)
--- NOTE | 2019-08-14 13:32 | PN ---
Subjective Date of Service: 08/14/19 Interval History: Reports feeling very sore and tired.Otherwise denies any complaints Family History: Unchanged from Admission Social History: Unchanged from Admission Past Medical History: Unchanged from Admission Objective Active Medications: Albuterol (Ventolin 2.5 Mg/3 Ml Neb.Rachel*) 1.25 mg INH Q4H PRN PRN Reason: SOB/WHEEZING Atorvastatin Calcium (Lipitor*) 10 mg PO DAILY [facility] Last Admin: 08/14/19 08:44 Dose: 10 mg Bumetanide (Bumex Tab*) 2 mg PO DAILY [facility] Last Admin: 08/14/19 08:38 Dose: 2 mg Carvedilol (Coreg Tab*) 25 mg PO BID [facility] Last Admin: 08/14/19 08:37 Dose: 25 mg Cyanocobalamin (Vitamin B12 Tab*) 500 mcg PO DAILY [facility] Last Admin: 08/14/19 08:44 Dose: 500 mcg Dextrose (D50w Syringe 50 Ml*) 12.5 gm IV PUSH .FOR FS < 60 - SS PRN PRN Reason: FS < 60 Ferrous Gluconate (Fergon Tab*) 324 mg PO BID [facility] Last Admin: 08/14/19 08:44 Dose: 324 mg Ceftriaxone Sodium 1 gm/ (Sodium Chloride) 50 mls @ 100 mls/hr IVPB Q24H [facility] Last Admin: 08/13/19 15:57 Dose: 100 mls/hr Insulin Human Lispro (Humalog*) 0 units SUBCUT BEDTIME [facility]; Protocol Last Admin: 08/13/19 20:58 Dose: 9 units Insulin Human NPH (Insulin Nph(*)) 30 units SUBCUT QPM [facility] Last Admin: 08/13/19 18:22 Dose: 30 unit Insulin Human Regular (Insulin Regular(*)) 15 units SUBCUT AC [facility] Last Admin: 08/14/19 08:45 Dose: 15 units Insulin Human Regular (Insulin Regular(*)) 0 units SUBCUT AC [facility]; Protocol Last Admin: 08/14/19 08:45 Dose: Not Given Levetiracetam (Keppra Tab*) 500 mg PO BID [facility] Last Admin: 08/14/19 08:37 Dose: 500 mg Levothyroxine Sodium (Synthroid Tab*) 25 mcg PO DAILY@0600 [facility] Last Admin: 08/14/19 05:14 Dose: 25 mcg Magnesium Chloride (Slow Mag Ec Tab*) 64 mg PO DAILY [facility] Last Admin: 08/14/19 08:38 Dose: 64 mg Metformin HCl (Glucophage*) 500 mg PO BID [facility] Last Admin: 08/14/19 08:44 Dose: 500 mg Miscellaneous (Ativan Pyxis Posadas) 1 ea N/A .ATIVAN IV POSADAS PRN PRN Reason: PYXIS POSADAS Multivitamins/Minerals (Theragran/Minerals Tab*) 1 tab PO DAILY [facility] Last Admin: 08/14/19 08:45 Dose: 1 tab Nitroglycerin (Nitroglycerin Tab 0.4 Mg*) 0.4 mg SL Q5M PRN PRN Reason: ANGINA Nystatin (Nystatin Top Powder*) 1 applic TOPICAL BID PRN PRN Reason: ITCHING Pantoprazole Sodium (Protonix Tab*) 40 mg PO BID [facility] Last Admin: 08/14/19 08:37 Dose: 40 mg Potassium Chloride (Klor Con Er Tab*) 20 meq PO DAILY [facility] Last Admin: 08/14/19 08:46 Dose: 20 meq Terazosin HCl (Hytrin Cap*) 10 mg PO BEDTIME [facility] Last Admin: 08/13/19 20:59 Dose: 10 mg Tiotropium [place] (Spiriva Respimat 2.5 Mcg) 2 puff INH DAILY [facility] Last Admin: 08/14/19 09:07 Dose: 2 puff Triamcinolone Acetonide (Triamcinolone 0.025% Oint *) 1 applic TOPICAL DAILY PRN PRN Reason: RASH Vital Signs - 8 hr 08/14/19 09:10 Pulse Rate 58 Respiratory 16 Rate O2 Sat by Pulse 97 Oximetry Oxygen Devices in Use Now: Nasal Cannula Eyes: No Scleral Icterus Ears/Nose/Mouth/Throat: NL Teeth, Lips, Gums Neck: NL Appearance and Movements; NL JVP Respiratory: Symmetrical Chest Expansion and Respiratory Effort, Clear to Auscultation Cardiovascular: NL Sounds; No Murmurs; No JVD Abdominal: NL Sounds; No Tenderness; No Distention Extremities: No Edema Neurological: Alert and Oriented x 3 Result Diagrams: 08/14/19 05:26 08/14/19 05:26 Additional Lab and Data: Laboratory Tests 08/07/19 01:41 Total Protein 7.7 Albumin 3.4 Microbiology and Other Data: Microbiology 08/07/19 02:20 Urine Culture - Preliminary Urine Klebsiella Pneumoniae Assess/Plan/Problems-Billing Assessment: Mrs Hansen is a 78yo F with PMH of type 2 DM, diabetice neuropathy and neprhopathy, 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 - Patient Problems (1) Seizure Current Visit: Yes Status: Acute Code(s): R56.9 - UNSPECIFIED CONVULSIONS SNOMED Code(s): 12508163 Comment: - Suspect her left hand "spasms" were focal seizures and she had a generalized tonic clonic seizure prior to this admission. 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 - Continue Levetiracetam 500mg BID and f/u with Dr Mcdonald as outpatient. (2) Hyperkalemia Current Visit: Yes Status: Acute Code(s): E87.5 - HYPERKALEMIA SNOMED Code (s): 33941786 Comment: in setting of hyperglycemia and sobeida. hold losartan and spironolatone continue bumex (3) SOBEIDA (acute kidney injury) Current Visit: Yes Status: Acute Code(s): N17.9 - ACUTE KIDNEY FAILURE, UNSPECIFIED SNOMED Code(s): 43227963 Comment: sobeida on ckd hold spironolactone and losartan for now also hyperk till improved (4) HLD (hyperlipidemia) Current Visit: Yes Status: Acute Code(s): E78.5 - HYPERLIPIDEMIA, UNSPECIFIED SNOMED Code(s): 67746711 Comment: -continue atorvastatin (5) HTN (hypertension) Current Visit: Yes Status: Acute Code(s): I10 - ESSENTIAL (PRIMARY) HYPERTENSION SNOMED Code(s): 60380210 Comment: -well controlled 110 - 120's -continue home diuretics, carvedilol, losartan (6) Heart failure Current Visit: Yes Status: Acute Code(s): I50.9 - HEART FAILURE, UNSPECIFIED SNOMED Code(s): 12763806 Comment: -EF 45-50%, grade 2 diastolic dysfunction -does not appear to be in exacerbation -was on home medications spironolactone, bumetanide, losartan, metoprolol -hold losartan and spironolactone today in setting of hyperkalemia (7) Hypothyroidism Current Visit: Yes Status: Acute Code(s): E03.9 - HYPOTHYROIDISM, UNSPECIFIED SNOMED Code(s): 75340769 Comment: -continue levothyroxine (8) Physical deconditioning Current Visit: Yes Status: Acute Code(s): R53.81 - OTHER MALAISE SNOMED Code(s): 29888426486635 Comment: - Patient has both OT and PT needs - I recommend [facility]. Psych agreed she does not have capacity at this time to refuse [facility] placement. - She remains open to the idea of [facility] and Hospice sign on when she returns home. - She has made progress with PT (she was max 2 assist and is now 1 assist) - I believe if she continues to progress at [facility] to the point she can transfer independently to a wheelchair she would be able to return home and then sign on to Hospice, with plan of avoiding frequent returns to the hospital. (9) Right shoulder pain Current Visit: Yes Status: Acute Code(s): M25.511 - PAIN IN RIGHT SHOULDER SNOMED Code(s): 30771602 Comment: -c/o new onset R shoulder pain, decreased ROM -R shoulder XR (10) UTI (urinary tract infection) Current Visit: Yes Status: Acute Comment: - Present on admission - Abnormal UA but asymptomatic - culture growing Klebsiella sensitive to Ceftriaxone -continue ceftriaxone (day 5) -stop after today (11) Uncontrolled diabetes mellitus Current Visit: Yes Status: Acute Code(s): E11.65 - TYPE 2 DIABETES MELLITUS WITH HYPERGLYCEMIA SNOMED Code(s): 67032785 Comment: - Hb A1c up to 12.5 from 7.9 in April 2019, likely secondary to non compliance - Endocrinology input appreciated - Uncontrolled 08/09- due to dietary non compliance - patient educated about diet importance (12) DVT prophylaxis Current Visit: Yes Status: Acute Code(s): FYS3058 - SNOMED Code(s): 425222958 Comment: -Pharmacological prophylaxis contraindicated in the setting of chronic GI bleed -SCDs Status and Disposition: Inpatient. Plan for d/c to [facility] when stable.
[2019-08-14] MEDS ORDERED: oxyCODONE TAB* 5 MG TAB PO PRN (13:36)
[2019-08-14] MEDS ORDERED: Acetaminophen TAB* 325 MG PO PRN (13:37)
[2019-08-14] MEDS: Insulin NPH(*) 1 UNITS UNIT SUBCUT SCH (17:43)
[2019-08-14] MEDS: Insulin LISPRO* 1 UNITS UNIT SUBCUT SCH (20:06)
[2019-08-14] MEDS: Terazosin CAP* 5 MG PO SCH (20:07)
[2019-08-15] MEDS ORDERED: Dextrose 50% Syringe 50 ML* 25 GM/50 ML SYRINGE IV PUSH PRN (00:37)
[2019-08-15] MEDS: Dextrose 50% Syringe 50 ML* 25 GM/50 ML SYRINGE IV PUSH PRN (00:37)
[2019-08-15 01:28] LABS: Albumin 3.2 g/dL (3.2-5.2); Albumin/Globulin Ratio 0.8 (1-3); BUN/Creatinine Ratio 46.3 (8-20); Calcium 8.1 mg/dL (8.6-10.3); EGFR African American 28.7 (>60); EGFR Non-African American 23.7 (>60); Globulin 4.1 g/dL (2-4); Magnesium 1.6 mg/dL (1.9-2.7); Total Bilirubin 0.5 mg/dL (0.2-1.0); Total Protein 7.3 g/dL (6.4-8.9)
[2019-08-15 01:30] LABS: Troponin I 0.01 ng/mL (<0.03)
[2019-08-15 01:45] LABS: ABS Eosinophils 0.2 10^3/ul (0-0.6); ABS Lymphocytes 0.5 10^3/ul (1.0-4.8); ABS Monocytes 0.6 10^3/ul (0-0.8); ABS Neutrophils 3.8 10^3/ul (1.5-7.7); Eosinophil % 3.8 %; Hematocrit 26 % (35-47); Hemoglobin 8.2 g/dL (12.0-16.0); Lymphocyte % 10.6 %; Mean Corpuscular HGB Conc 32 g/dL (31-36); Mean Corpuscular Hemoglobin 25 pg (27-31); Mean Corpuscular Volume 77 fL (80-97); Red Blood Count 3.33 10^6 /uL (3.70-4.87); Red Cell Distribution Width 20 % (10-15); White Blood Count 5.1 10^3/uL (3.5-10.8)
[2019-08-15] MEDS ORDERED: Magnesium Sulfate IV* 3 GM in NS 0.9% 100 ML* 100 ML IVPB ONE (01:55)
[2019-08-15 03:08] LABS: Mean Platelet Volume 11.5 fL (7.4-10.4); Platelet Count 104 10^3/uL (150-450)
[2019-08-15] MEDS ORDERED: NS 0.9% 100 ML* 100 ML ONE (03:42)
[2019-08-15] MEDS: Levothyroxine TAB* 25 MCG TAB PO SCH (05:14)
[2019-08-15 06:54] LABS: Hematocrit 27 % (35-47); Hemoglobin 8.5 g/dL (12.0-16.0); Mean Corpuscular HGB Conc 32 g/dL (31-36); Mean Corpuscular Hemoglobin 24 pg (27-31); Mean Corpuscular Volume 76 fL (80-97); Red Cell Distribution Width 20 % (10-15)
[2019-08-15 07:05] LABS: Albumin 3.2 g/dL (3.2-5.2); Albumin/Globulin Ratio 0.8 (1-3); BUN/Creatinine Ratio 48.7 (8-20); Calcium 8.2 mg/dL (8.6-10.3); EGFR African American 31.6 (>60); EGFR Non-African American 26.1 (>60); Total Bilirubin 0.6 mg/dL (0.2-1.0); Total Protein 7.2 g/dL (6.4-8.9)
[2019-08-15 07:17] LABS: Potassium 5.4 mmol/L (3.5-5.0)
[2019-08-15] MEDS: SPIRIVA Respimat* (tiotropium) 2.5 mcg/inh Inhaler INH SCH (07:41)
[2019-08-15 07:43] LABS: Platelet Count 106 10^3/uL (150-450)
[2019-08-15 07:52] LABS: ABS Basophils 0.2 10^3/ul (0-0.2); ABS Eosinophils 0.2 10^3/ul (0-0.6)
[2019-08-15] MEDS: Insulin REGULAR(*) 1 UNITS UNIT SUBCUT SCH ×6 (08:06→18:04)
[2019-08-15] MEDS: Multivitamins/Minerals TAB PO SCH (09:36)
[2019-08-15] MEDS: levETIRAcetam TAB* 500 MG PO SCH ×2 (09:36→21:22)
[2019-08-15] MEDS: Pantoprazole TAB * 40 MG TAB PO SCH ×2 (09:36→21:22)
[2019-08-15] MEDS: Magnesium Chloride EC TAB* 64 MG PO SCH (09:36)
[2019-08-15] MEDS: Carvedilol TAB* 25 MG PO SCH ×2 (09:36→21:23)
[2019-08-15] MEDS: Cyanocobalamin TAB* 500 MCG PO SCH (09:36)
[2019-08-15] MEDS: Atorvastatin* 10 MG TAB PO SCH (09:36)
[2019-08-15] MEDS: Ferrous Gluconate TAB* 324 MG TAB PO SCH ×2 (09:36→21:22)
[2019-08-15] MEDS: Bumetanide TAB* 2 MG PO SCH (09:36)
--- NOTE | 2019-08-15 14:29 | PN ---
Subjective Date of Service: 08/15/19 Interval History: Increased ammonia and AMS.Was not waking up. Improving slowly with lactose Family History: Unchanged from Admission Social History: Unchanged from Admission Past Medical History: Unchanged from Admission Objective Active Medications: Albuterol (Ventolin 2.5 Mg/3 Ml Neb.Rachel*) 1.25 mg INH Q4H PRN PRN Reason: SOB/WHEEZING Atorvastatin Calcium (Lipitor*) 10 mg PO DAILY [facility] Last Admin: 08/15/19 09:36 Dose: 10 mg Bumetanide (Bumex Tab*) 2 mg PO DAILY [facility] Last Admin: 08/15/19 09:36 Dose: 2 mg Carvedilol (Coreg Tab*) 25 mg PO BID [facility] Last Admin: 08/15/19 09:36 Dose: 25 mg Cyanocobalamin (Vitamin B12 Tab*) 500 mcg PO DAILY [facility] Last Admin: 08/15/19 09:36 Dose: 500 mcg Dextrose (D50w Syringe 50 Ml*) 12.5 gm IV PUSH .FOR FS < 60 - SS PRN PRN Reason: FS < 60 Last Admin: 08/15/19 00:37 Dose: 12.5 gm Dextrose (D50w Syringe 50 Ml*) 25 gm IV PUSH ONCE PRN PRN Reason: FS < 60 Ferrous Gluconate (Fergon Tab*) 324 mg PO BID [facility] Last Admin: 08/15/19 09:36 Dose: 324 mg Insulin Human Lispro (Humalog*) 0 units SUBCUT BEDTIME [facility]; Protocol Last Admin: 08/14/19 20:06 Dose: 2 units Insulin Human NPH (Insulin Nph(*)) 30 units SUBCUT QPM [facility] Last Admin: 08/14/19 17:43 Dose: 30 unit Insulin Human Regular (Insulin Regular(*)) 0 units SUBCUT AC [facility]; Protocol Last Admin: 08/15/19 12:50 Dose: 6 units Insulin Human Regular (Insulin Regular(*)) 10 units SUBCUT AC [facility] Last Admin: 08/15/19 12:51 Dose: 10 units Lactulose (Lactulose*) 30 ml PO QID [facility] Last Admin: 08/15/19 12:51 Dose: 30 ml Levetiracetam (Keppra Tab*) 500 mg PO BID [facility] Last Admin: 08/15/19 09:36 Dose: 500 mg Levothyroxine Sodium (Synthroid Tab*) 25 mcg PO DAILY@0600 [facility] Last Admin: 08/15/19 05:14 Dose: 25 mcg Magnesium Chloride (Slow Mag Ec Tab*) 64 mg PO DAILY [facility] Last Admin: 08/15/19 09:36 Dose: 64 mg Miscellaneous (Ativan Pyxis Opsadas) 1 ea N/A .ATIVAN IV POSADAS PRN PRN Reason: PYXIS POSADAS Multivitamins/Minerals (Theragran/Minerals Tab*) 1 tab PO DAILY [facility] Last Admin: 08/15/19 09:36 Dose: 1 tab Nitroglycerin (Nitroglycerin Tab 0.4 Mg*) 0.4 mg SL Q5M PRN PRN Reason: ANGINA Nystatin (Nystatin Top Powder*) 1 applic TOPICAL BID PRN PRN Reason: ITCHING Pantoprazole Sodium (Protonix Tab*) 40 mg PO BID [facility] Last Admin: 08/15/19 09:36 Dose: 40 mg Terazosin HCl (Hytrin Cap*) 10 mg PO BEDTIME [facility] Last Admin: 08/14/19 20:07 Dose: 10 mg Tiotropium [place] (Spiriva Respimat 2.5 Mcg) 2 puff INH DAILY [facility] Last Admin: 08/15/19 07:41 Dose: 2 puff Triamcinolone Acetonide (Triamcinolone 0.025% Oint *) 1 applic TOPICAL DAILY PRN PRN Reason: RASH Vital Signs - 8 hr 08/15/19 08/15/19 08/15/19 07:36 07:42 08:00 Temperature 97.3 F Pulse Rate 56 64 Respiratory 20 16 20 Rate Blood Pressure 148/50 (mmHg) O2 Sat by Pulse 100 99 Oximetry 08/15/19 08/15/19 08:19 11:39 Temperature 97.7 F Pulse Rate 58 Respiratory 20 20 Rate Blood Pressure 160/65 (mmHg) O2 Sat by Pulse 100 Oximetry Oxygen Devices in Use Now: Nasal Cannula Eyes: No Scleral Icterus Ears/Nose/Mouth/Throat: NL Teeth, Lips, Gums Neck: NL Appearance and Movements; NL JVP Respiratory: Symmetrical Chest Expansion and Respiratory Effort Cardiovascular: NL Sounds; No Murmurs; No JVD Extremities: No Edema Neurological: - - more responsive not able to answer all questions but arousable. Result Diagrams: 08/15/19 06:35 08/15/19 06:35 Additional Lab and Data: Laboratory Tests 08/07/19 01:41 Total Protein 7.7 Albumin 3.4 Microbiology and Other Data: Microbiology 08/07/19 02:20 Urine Culture - Preliminary Urine Klebsiella Pneumoniae Assess/Plan/Problems-Billing Assessment: Mrs Hansen is a 78yo F with PMH of type 2 DM, diabetice neuropathy and neprhopathy, liver cirrhosis likely secondary to SMILEY with portal hypertension, gastropathy and esophageal varices, duodenal AVMs with chronic GI bleed and need for recurrent transfusions, TAHIR, diastolic CHF, COPD on chronic home O2, HTN, CKD stage 3, HLD, hypothyroidism, who presented to ED with uncontrolled diabetes and generalized "spasms" thought to be a seizure. - Patient Problems (1) Hyperammonemia Current Visit: Yes Status: Acute Code(s): E72.20 - DISORDER OF UREA CYCLE METABOLISM, UNSPECIFIED SNOMED Code(s): 7620597 Comment: ammonia 283 disproportional to liver abn ?urea cycle disorder versus related to liver -does have reported h/o smiley and liver cirrhosis -AP elevated -GB ultrasound -Lactulose -Will follow (2) Seizure Current Visit: Yes Status: Acute Code(s): R56.9 - UNSPECIFIED CONVULSIONS SNOMED Code(s): 53835220 Comment: - Suspect her left hand "spasms" were focal seizures and she had a generalized tonic clonic seizure prior to this admission. 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 - Continue Levetiracetam 500mg BID and f/u with Dr Mcdonald as outpatient. (3) Hyperkalemia Current Visit: Yes Status: Acute Code(s): E87.5 - HYPERKALEMIA SNOMED Code (s): 34439844 Comment: in setting of hyperglycemia and sobeida. hold losartan and spironolatone continue bumex (4) SOBEIDA (acute kidney injury) Current Visit: Yes Status: Acute Code(s): N17.9 - ACUTE KIDNEY FAILURE, UNSPECIFIED SNOMED Code(s): 06468563 Comment: sobeida on ckd hold spironolactone and losartan for now also hyperk till improved (5) HLD (hyperlipidemia) Current Visit: Yes Status: Acute Code(s): E78.5 - HYPERLIPIDEMIA, UNSPECIFIED SNOMED Code(s): 37581584 Comment: -continue atorvastatin (6) HTN (hypertension) Current Visit: Yes Status: Acute Code(s): I10 - ESSENTIAL (PRIMARY) HYPERTENSION SNOMED Code(s): 29832576 Comment: -well controlled 110 - 120's -continue home diuretics, carvedilol, losartan (7) Heart failure Current Visit: Yes Status: Acute Code(s): I50.9 - HEART FAILURE, UNSPECIFIED SNOMED Code(s): 98884540 Comment: -EF 45-50%, grade 2 diastolic dysfunction -does not appear to be in exacerbation -was on home medications spironolactone, bumetanide, losartan, metoprolol -hold losartan and spironolactone today in setting of hyperkalemia (8) Hypothyroidism Current Visit: Yes Status: Acute Code(s): E03.9 - HYPOTHYROIDISM, UNSPECIFIED SNOMED Code(s): 66091254 Comment: -continue levothyroxine (9) Physical deconditioning Current Visit: Yes Status: Acute Code(s): R53.81 - OTHER MALAISE SNOMED Code(s): 62918302296579 Comment: - Patient has both OT and PT needs - I recommend [facility]. Psych agreed she does not have capacity at this time to refuse [facility] placement. - She remains open to the idea of [facility] and Hospice sign on when she returns home. - She has made progress with PT (she was max 2 assist and is now 1 assist) - I believe if she continues to progress at [facility] to the point she can transfer independently to a wheelchair she would be able to return home and then sign on to Hospice, with plan of avoiding frequent returns to the hospital. (10) Right shoulder pain Current Visit: Yes Status: Acute Code(s): M25.511 - PAIN IN RIGHT SHOULDER SNOMED Code(s): 92499902 Comment: -c/o new onset R shoulder pain, decreased ROM -R shoulder XR (11) UTI (urinary tract infection) Current Visit: Yes Status: Acute Comment: - Present on admission - Abnormal UA but asymptomatic - culture growing Klebsiella sensitive to Ceftriaxone -continue ceftriaxone (day 5) -completed (12) Uncontrolled diabetes mellitus Current Visit: Yes Status: Acute Code(s): E11.65 - TYPE 2 DIABETES MELLITUS WITH HYPERGLYCEMIA SNOMED Code(s): 51225927 Comment: - Hb A1c up to 12.5 from 7.9 in April 2019, likely secondary to non compliance - Endocrinology input appreciated - Uncontrolled 08/09- due to dietary non compliance - patient educated about diet importance (13) DVT prophylaxis Current Visit: Yes Status: Acute Code(s): XHM9972 - SNOMED Code(s): 447002582 Comment: -Pharmacological prophylaxis contraindicated in the setting of chronic GI bleed -SCDs Status and Disposition: Inpatient. Plan for d/c to [facility] when stable.
[2019-08-15] MEDS ORDERED: Magnesium Sulfate 2 GM IV* 2 GM/50 ML BAG IVPB ONE (14:34)
[2019-08-15] MEDS: Insulin NPH(*) 1 UNITS UNIT SUBCUT SCH (18:04)
[2019-08-15] MEDS: Insulin LISPRO* 1 UNITS UNIT SUBCUT SCH (21:22)
[2019-08-15] MEDS: Terazosin CAP* 5 MG PO SCH (21:22)
[2019-08-16] MEDS: Dextrose 50% Syringe 50 ML* 25 GM/50 ML SYRINGE IV PUSH PRN (00:43)
[2019-08-16] MEDS: Levothyroxine TAB* 25 MCG TAB PO SCH (05:08)
[2019-08-16 05:14] LABS: Albumin 3.1 g/dL (3.2-5.2); Albumin/Globulin Ratio 0.8 (1-3); BUN/Creatinine Ratio 47.5 (8-20); Calcium 8.4 mg/dL (8.6-10.3); EGFR African American 33.2 (>60); EGFR Non-African American 27.5 (>60); Total Bilirubin 0.6 mg/dL (0.2-1.0); Total Protein 7.1 g/dL (6.4-8.9)
[2019-08-16 05:31] LABS: Microcytosis 1+; Tear Drop Cells 1+
[2019-08-16 05:32] LABS: ABS Eosinophils 0.2 10^3/ul (0-0.6); ABS Lymphocytes 0.4 10^3/ul (1.0-4.8); ABS Monocytes 0.5 10^3/ul (0-0.8); ABS Neutrophils 3.5 10^3/ul (1.5-7.7); Eosinophil % 3.5 %; Hematocrit 26 % (35-47); Hemoglobin 8.1 g/dL (12.0-16.0); Lymphocyte % 9.8 %; Mean Corpuscular HGB Conc 32 g/dL (31-36); Mean Corpuscular Hemoglobin 24 pg (27-31); Mean Corpuscular Volume 77 fL (80-97); Platelet Count 105 10^3/uL (150-450); Red Blood Count 3.33 10^6 /uL (3.70-4.87); Red Cell Distribution Width 20 % (10-15); White Blood Count 4.6 10^3/uL (3.5-10.8)
[2019-08-16] MEDS: SPIRIVA Respimat* (tiotropium) 2.5 mcg/inh Inhaler INH SCH (07:27)
[2019-08-16] MEDS: Multivitamins/Minerals TAB PO SCH (07:48)
[2019-08-16] MEDS: Magnesium Chloride EC TAB* 64 MG PO SCH (07:48)
[2019-08-16] MEDS: Atorvastatin* 10 MG TAB PO SCH (07:48)
[2019-08-16] MEDS: Ferrous Gluconate TAB* 324 MG TAB PO SCH ×2 (07:48→23:44)
[2019-08-16] MEDS: Insulin REGULAR(*) 1 UNITS UNIT SUBCUT SCH ×6 (07:48→16:59)
[2019-08-16] MEDS: Pantoprazole TAB * 40 MG TAB PO SCH ×2 (07:48→23:45)
[2019-08-16] MEDS: levETIRAcetam TAB* 500 MG PO SCH ×2 (07:48→21:23)
[2019-08-16] MEDS: Carvedilol TAB* 25 MG PO SCH ×2 (07:48→23:44)
[2019-08-16] MEDS: Cyanocobalamin TAB* 500 MCG PO SCH (07:48)
[2019-08-16] MEDS: Bumetanide TAB* 2 MG PO SCH (07:48)
--- NOTE | 2019-08-16 16:16 | PN ---
Subjective Date of Service: 08/16/19 Interval History: Less confused.Answering questions appropriately but waxes and wanes. NH3 still high. Family History: Unchanged from Admission Social History: Unchanged from Admission Past Medical History: Unchanged from Admission Objective Active Medications: Albuterol (Ventolin 2.5 Mg/3 Ml Neb.Rachel*) 1.25 mg INH Q4H PRN PRN Reason: SOB/WHEEZING Atorvastatin Calcium (Lipitor*) 10 mg PO DAILY [facility] Last Admin: 08/16/19 07:48 Dose: 10 mg Bumetanide (Bumex Tab*) 2 mg PO DAILY [facility] Last Admin: 08/16/19 07:48 Dose: 2 mg Carvedilol (Coreg Tab*) 25 mg PO BID [facility] Last Admin: 08/16/19 07:48 Dose: 25 mg Cyanocobalamin (Vitamin B12 Tab*) 500 mcg PO DAILY [facility] Last Admin: 08/16/19 07:48 Dose: 500 mcg Dextrose (D50w Syringe 50 Ml*) 12.5 gm IV PUSH .FOR FS < 60 - SS PRN PRN Reason: FS < 60 Last Admin: 08/15/19 00:37 Dose: 12.5 gm Dextrose (D50w Syringe 50 Ml*) 25 gm IV PUSH ONCE PRN PRN Reason: FS < 60 Last Admin: 08/16/19 00:44 Dose: 25 gm Ferrous Gluconate (Fergon Tab*) 324 mg PO BID [facility] Last Admin: 08/16/19 07:48 Dose: 324 mg Insulin Human Lispro (Humalog*) 0 units SUBCUT BEDTIME [facility]; Protocol Last Admin: 08/15/19 21:22 Dose: 6 units Insulin Human NPH (Insulin Nph(*)) 25 units SUBCUT QPM [facility] Insulin Human Regular (Insulin Regular(*)) 0 units SUBCUT AC [facility]; Protocol Last Admin: 08/16/19 11:51 Dose: 10 units Insulin Human Regular (Insulin Regular(*)) 10 units SUBCUT AC [facility] Last Admin: 08/16/19 11:51 Dose: 10 units Lactulose (Lactulose*) 30 ml PO QID [facility] Last Admin: 08/16/19 11:51 Dose: 30 ml Levetiracetam (Keppra Tab*) 500 mg PO BID [facility] Last Admin: 08/16/19 07:48 Dose: 500 mg Levothyroxine Sodium (Synthroid Tab*) 25 mcg PO DAILY@0600 [facility] Last Admin: 08/16/19 05:08 Dose: 25 mcg Magnesium Chloride (Slow Mag Ec Tab*) 64 mg PO DAILY [facility] Last Admin: 08/16/19 07:48 Dose: 64 mg Miscellaneous (Ativan Pyxis Posadas) 1 ea N/A .ATIVAN IV POSADAS PRN PRN Reason: PYXIS POSADAS Multivitamins/Minerals (Theragran/Minerals Tab*) 1 tab PO DAILY [facility] Last Admin: 08/16/19 07:48 Dose: 1 tab Nitroglycerin (Nitroglycerin Tab 0.4 Mg*) 0.4 mg SL Q5M PRN PRN Reason: ANGINA Nystatin (Nystatin Top Powder*) 1 applic TOPICAL BID PRN PRN Reason: ITCHING Pantoprazole Sodium (Protonix Tab*) 40 mg PO BID [facility] Last Admin: 08/16/19 07:48 Dose: 40 mg Terazosin HCl (Hytrin Cap*) 10 mg PO BEDTIME [facility] Last Admin: 08/15/19 21:22 Dose: 10 mg Tiotropium [place] (Spiriva Respimat 2.5 Mcg) 2 puff INH DAILY [facility] Last Admin: 08/16/19 07:27 Dose: 2 puff Triamcinolone Acetonide (Triamcinolone 0.025% Oint *) 1 applic TOPICAL DAILY PRN PRN Reason: RASH Vital Signs - 8 hr 08/16/19 08/16/19 11:15 15:15 Temperature 97.4 F 97.4 F Pulse Rate 61 58 Respiratory 20 16 Rate Blood Pressure 153/48 132/56 (mmHg) O2 Sat by Pulse 100 100 Oximetry Oxygen Devices in Use Now: Nasal Cannula Eyes: No Scleral Icterus Ears/Nose/Mouth/Throat: NL Teeth, Lips, Gums Neck: NL Appearance and Movements; NL JVP Respiratory: Symmetrical Chest Expansion and Respiratory Effort Cardiovascular: NL Sounds; No Murmurs; No JVD Abdominal: NL Sounds; No Tenderness; No Distention Skin: No Rash or Ulcers Neurological: Alert and Oriented x 3 Result Diagrams: 08/16/19 04:50 08/16/19 04:50 Additional Lab and Data: Laboratory Tests 08/07/19 01:41 Total Protein 7.7 Albumin 3.4 Microbiology and Other Data: Microbiology 08/07/19 02:20 Urine Culture - Preliminary Urine Klebsiella Pneumoniae Assess/Plan/Problems-Billing Assessment: Mrs Hansen is a 78yo F with PMH of type 2 DM, diabetice neuropathy and neprhopathy, liver cirrhosis likely secondary to SMILEY with portal hypertension, gastropathy and esophageal varices, duodenal AVMs with chronic GI bleed and need for recurrent transfusions, TAHIR, diastolic CHF, COPD on chronic home O2, HTN, CKD stage 3, HLD, hypothyroidism, who presented to ED with uncontrolled diabetes and generalized "spasms" thought to be a seizure. - Patient Problems (1) Hyperammonemia Current Visit: Yes Status: Acute Code(s): E72.20 - DISORDER OF UREA CYCLE METABOLISM, UNSPECIFIED SNOMED Code(s): 3647278 Comment: ammonia 283 disproportional to liver abn ?urea cycle disorder versus related to liver -does have reported h/o smiley and liver cirrhosis -AP elevated -GB ultrasound -Lactulose -Will follow (2) Seizure Current Visit: Yes Status: Acute Code(s): R56.9 - UNSPECIFIED CONVULSIONS SNOMED Code(s): 71285363 Comment: - Suspect her left hand "spasms" were focal seizures and she had a generalized tonic clonic seizure prior to this admission. 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 - Continue Levetiracetam 500mg BID and f/u with Dr Mcdonald as outpatient. (3) Hyperkalemia Current Visit: Yes Status: Acute Code(s): E87.5 - HYPERKALEMIA SNOMED Code (s): 58380893 Comment: in setting of hyperglycemia and sobeida. hold losartan and spironolatone continue bumex (4) SOBEIDA (acute kidney injury) Current Visit: Yes Status: Acute Code(s): N17.9 - ACUTE KIDNEY FAILURE, UNSPECIFIED SNOMED Code(s): 93842233 Comment: sobeida on ckd hold spironolactone and losartan for now also hyperk till improved (5) HLD (hyperlipidemia) Current Visit: Yes Status: Acute Code(s): E78.5 - HYPERLIPIDEMIA, UNSPECIFIED SNOMED Code(s): 34097163 Comment: -continue atorvastatin (6) HTN (hypertension) Current Visit: Yes Status: Acute Code(s): I10 - ESSENTIAL (PRIMARY) HYPERTENSION SNOMED Code(s): 26004153 Comment: -well controlled 110 - 120's -continue home diuretics, carvedilol, losartan (7) Heart failure Current Visit: Yes Status: Acute Code(s): I50.9 - HEART FAILURE, UNSPECIFIED SNOMED Code(s): 77627151 Comment: -EF 45-50%, grade 2 diastolic dysfunction -does not appear to be in exacerbation -was on home medications spironolactone, bumetanide, losartan, metoprolol -hold losartan and spironolactone today in setting of hyperkalemia (8) Hypothyroidism Current Visit: Yes Status: Acute Code(s): E03.9 - HYPOTHYROIDISM, UNSPECIFIED SNOMED Code(s): 99765794 Comment: -continue levothyroxine (9) Physical deconditioning Current Visit: Yes Status: Acute Code(s): R53.81 - OTHER MALAISE SNOMED Code(s): 06270179870195 Comment: - Patient has both OT and PT needs - I recommend [facility]. Psych agreed she does not have capacity at this time to refuse [facility] placement. - She remains open to the idea of [facility] and Hospice sign on when she returns home. - She has made progress with PT (she was max 2 assist and is now 1 assist) - I believe if she continues to progress at [facility] to the point she can transfer independently to a wheelchair she would be able to return home and then sign on to Hospice, with plan of avoiding frequent returns to the hospital. (10) Right shoulder pain Current Visit: Yes Status: Acute Code(s): M25.511 - PAIN IN RIGHT SHOULDER SNOMED Code(s): 58562309 Comment: -c/o new onset R shoulder pain, decreased ROM -R shoulder XR (11) UTI (urinary tract infection) Current Visit: Yes Status: Acute Comment: - Present on admission - Abnormal UA but asymptomatic - culture growing Klebsiella sensitive to Ceftriaxone -continue ceftriaxone (day 5) -completed (12) Uncontrolled diabetes mellitus Current Visit: Yes Status: Acute Code(s): E11.65 - TYPE 2 DIABETES MELLITUS WITH HYPERGLYCEMIA SNOMED Code(s): 39787282 Comment: - Hb A1c up to 12.5 from 7.9 in April 2019, likely secondary to non compliance - Endocrinology input appreciated - Uncontrolled 08/09-14 due to dietary non compliance - patient educated about diet importance (13) DVT prophylaxis Current Visit: Yes Status: Acute Code(s): [id number] - SNOMED Code(s): 507887921 Comment: -Pharmacological prophylaxis contraindicated in the setting of chronic GI bleed -SCDs Status and Disposition: Inpatient. Plan for d/c to [facility] when stable.
[2019-08-16] MEDS: Insulin NPH(*) 1 UNITS UNIT SUBCUT SCH (16:59)
[2019-08-16] MEDS ORDERED: levETIRAcetam 1000MG IVPREMIX* 1,000 MG/100 ML BAG IVPB ONE (20:00)
[2019-08-16] MEDS: Insulin LISPRO* 1 UNITS UNIT SUBCUT SCH (23:45)
[2019-08-16] MEDS: Terazosin CAP* 5 MG PO SCH (23:45)
[2019-08-17] MEDS ORDERED: Dextrose 50% Syringe 50 ML* 25 GM/50 ML SYRINGE IV PUSH ONE (01:42)
[2019-08-17] MEDS: Dextrose 50% Syringe 50 ML* 25 GM/50 ML SYRINGE ONE ×2 (01:47→01:57)
[2019-08-17] MEDS ORDERED: Lactulose 300 ML for PR* 10 GM/15 ML BTL PR ONE (01:57)
[2019-08-17] MEDS: RiFAXimin* 550 MG TAB PO SCH ×4 (03:16→20:25)
[2019-08-17] MEDS: Insulin REGULAR(*) 1 UNITS UNIT SUBCUT SCH ×4 (03:16→20:27)
[2019-08-17 04:44] LABS: ABS Basophils 0.1 10^3/ul (0-0.2); ABS Eosinophils 0.2 10^3/ul (0-0.6); ABS Lymphocytes 1.1 10^3/ul (1.0-4.8); ABS Monocytes 0.4 10^3/ul (0-0.8); Eosinophil % 3.6 %; Hematocrit 24 % (35-47); Hemoglobin 7.6 g/dL (12.0-16.0); Lymphocyte % 23.3 %; Mean Corpuscular HGB Conc 32 g/dL (31-36); Mean Corpuscular Hemoglobin 25 pg (27-31); Mean Corpuscular Volume 77 fL (80-97); Mean Platelet Volume 11.7 fL (7.4-10.4); Nucleated Red Blood Cells % 0.3; Platelet Count 122 10^3/uL (150-450); Red Blood Count 3.07 10^6 /uL (3.70-4.87); Red Cell Distribution Width 20 % (10-15); White Blood Count 4.7 10^3/uL (3.5-10.8)
[2019-08-17 05:00] LABS: Albumin/Globulin Ratio 0.8 (1-3); Calcium 8.4 mg/dL (8.6-10.3); EGFR African American 32.2 (>60); EGFR Non-African American 26.6 (>60); Globulin 3.8 g/dL (2-4); Potassium 4.3 mmol/L (3.5-5.0); Total Bilirubin 0.6 mg/dL (0.2-1.0); Total Protein 6.8 g/dL (6.4-8.9)
--- NOTE | 2019-08-17 05:32 | PN ---
Hospitalist Progress Note Date of Service: 08/17/19 Paged initially in evening of 08/16 for episode of unresponsiveness with rhythmic jerking movements of the B/L UE concerning for a seizure. Discussed with Dr. Samayoa of Neurology who recommended a Keppra level and a 1g IV load which was given. Paged several times during the night for worsening lethargy and inability to wake up long enough to take pills. Patient noted to have prominent asterixis. NG tube ordered in order to facilitate lactulose and rifaximin dosing. Patient transferred to ICU for low GCS and need for frequent monitoring. Lactulose Enema given there. Discussed situation with patient's who came into the hospital. ABG WNL, CMP within established baseline.
[2019-08-17] MEDS: Levothyroxine TAB* 25 MCG TAB PO SCH (05:51)
[2019-08-17] MEDS ORDERED: LORazepam INJ* 2 MG/ML 1 ML VIAL IV PUSH ONE (08:38)
[2019-08-17] MEDS ORDERED: Lorazepam PYXIS KEY PRN (08:38)
[2019-08-17] MEDS ORDERED: LORazepam INJ* 2 MG/ML 1 ML VIAL ONE ×2 (08:42→13:07)
[2019-08-17] MEDS ORDERED: RiFAXimin* 550 MG TAB PO SCH (09:00)
[2019-08-17] MEDS: Atorvastatin* 10 MG TAB PO SCH ×2 (09:12→09:32)
[2019-08-17] MEDS: Bumetanide TAB* 2 MG PO SCH ×2 (09:12→10:49)
[2019-08-17] MEDS: Carvedilol TAB* 25 MG PO SCH ×3 (09:12→20:21)
[2019-08-17] MEDS: Ferrous Gluconate TAB* 324 MG TAB PO SCH ×3 (09:12→20:16)
[2019-08-17] MEDS: Cyanocobalamin TAB* 500 MCG PO SCH ×2 (09:12→09:32)
[2019-08-17] MEDS: levETIRAcetam TAB* 500 MG PO SCH ×4 (09:13→20:26)
[2019-08-17] MEDS: Multivitamins/Minerals TAB PO SCH ×2 (09:13→09:31)
[2019-08-17] MEDS: SPIRIVA Respimat* (tiotropium) 2.5 mcg/inh Inhaler INH SCH (09:13)
[2019-08-17] MEDS: Magnesium Chloride EC TAB* 64 MG PO SCH ×2 (09:13→10:49)
[2019-08-17] MEDS: Pantoprazole TAB * 40 MG TAB PO SCH ×3 (09:13→20:27)
--- NOTE | 2019-08-17 09:50 | PN ---
Progress Note - Progress Note Date of Service: 08/17/19 Note: Progress Note -- Critical Care 24 hour events/significant events: - Last evening, patient experienced generalized seizure and loss of consciousness. Given extra 1G keppra - Ammonia also elevated, given lactulose NG and LA - Transferred to ICU for closer monitoring ROS: ROS unable to be obtained secondary to altered mental status Tele: sinus Vitals: Laboratory Results - last 24 hr 08/16/19 08/16/19 08/16/19 11:06 16:21 16:23 WBC RBC Hgb Hct MCV MCH MCHC RDW Plt Count MPV Neut % (Auto) Lymph % (Auto) [place] % (Auto) Eos % (Auto) Baso % (Auto) Absolute Neuts (auto) Absolute Lymphs (auto) Absolute Monos (auto) Absolute Eos (auto) Absolute Basos (auto) Absolute Nucleated RBC Nucleated RBC % Patient Temperature ABG pH ABG pCO2 ABG pO2 ABG HCO3 ABG O2 Saturation ABG Base Excess Respiration Rate O2 Delivery Device Ventilator Type Vent Mode FiO2 Inspiratory Time PEEP Pressure Support Pressure Control EPAP IPAP BiPAP Sodium Potassium Chloride Carbon Dioxide Anion Gap BUN Creatinine Est GFR ( Amer) Est GFR (Non-Af Amer) BUN/Creatinine Ratio Glucose POC Glucose (mg/dL) 387 H 315 H Calcium Total Bilirubin AST ALT Alkaline Phosphatase Ammonia 195 H Total Protein Albumin Globulin Albumin/Globulin Ratio 08/16/19 08/16/19 08/17/19 19:34 23:17 01:12 WBC RBC Hgb Hct MCV MCH MCHC RDW Plt Count MPV Neut % (Auto) Lymph % (Auto) [place] % (Auto) Eos % (Auto) Baso % (Auto) Absolute Neuts (auto) Absolute Lymphs (auto) Absolute Monos (auto) Absolute Eos (auto) Absolute Basos (auto) Absolute Nucleated RBC Nucleated RBC % Patient Temperature ABG pH ABG pCO2 ABG pO2 ABG HCO3 ABG O2 Saturation ABG Base Excess Respiration Rate O2 Delivery Device Ventilator Type Vent Mode FiO2 Inspiratory Time PEEP Pressure Support Pressure Control EPAP IPAP BiPAP Sodium Potassium Chloride Carbon Dioxide Anion Gap BUN Creatinine Est GFR ( Amer) Est GFR (Non-Af Amer) BUN/Creatinine Ratio Glucose POC Glucose (mg/dL) 228 H 110 H 79 Calcium Total Bilirubin AST ALT Alkaline Phosphatase Ammonia Total Protein Albumin Globulin Albumin/Globulin Ratio 08/17/19 08/17/19 08/17/19 04:14 04:30 04:30 WBC 4.7 RBC 3.07 L Hgb 7.6 L Hct 24 L MCV 77 L MCH 25 L MCHC 32 RDW 20 H Plt Count 122 L MPV 11.7 H Neut % (Auto) 62.5 Lymph % (Auto) 23.3 [place] % (Auto) 9.1 Eos % (Auto) 3.6 Baso % (Auto) 1.5 Absolute Neuts (auto) 3.0 Absolute Lymphs (auto) 1.1 Absolute Monos (auto) 0.4 Absolute Eos (auto) 0.2 Absolute Basos (auto) 0.1 Absolute Nucleated RBC 0.0 Nucleated RBC % 0.3 Patient Temperature Not Reportable ABG pH 7.45 ABG pCO2 45 ABG pO2 60 L ABG HCO3 29.7 ABG O2 Saturation 92.8 L ABG Base Excess 6.4 H Respiration Rate Not Reportable O2 Delivery Device Not Reportable Ventilator Type Not Reportable Vent Mode Not Reportable FiO2 Not Reportable Inspiratory Time Not Reportable PEEP Not Reportable Pressure Support Not Reportable Pressure Control Not Reportable EPAP Not Reportable IPAP Not Reportable BiPAP Not Reportable Sodium 140 Potassium 4.3 Chloride 103 Carbon Dioxide 29 Anion Gap 8 BUN 81 H Creatinine 1.84 H Est GFR ( Amer) 32.2 Est GFR (Non-Af Amer) 26.6 BUN/Creatinine Ratio 44.0 H Glucose 95 POC Glucose (mg/dL) Calcium 8.4 L Total Bilirubin 0.60 AST 39 ALT 29 Alkaline Phosphatase 227 H Ammonia Total Protein 6.8 Albumin 3.0 L Globulin 3.8 Albumin/Globulin Ratio 0.8 L 08/17/19 04:30 WBC RBC Hgb Hct MCV MCH MCHC RDW Plt Count MPV Neut % (Auto) Lymph % (Auto) [place] % (Auto) Eos % (Auto) Baso % (Auto) Absolute Neuts (auto) Absolute Lymphs (auto) Absolute Monos (auto) Absolute Eos (auto) Absolute Basos (auto) Absolute Nucleated RBC Nucleated RBC % Patient Temperature ABG pH ABG pCO2 ABG pO2 ABG HCO3 ABG O2 Saturation ABG Base Excess Respiration Rate O2 Delivery Device Ventilator Type Vent Mode FiO2 Inspiratory Time PEEP Pressure Support Pressure Control EPAP IPAP BiPAP Sodium Potassium Chloride Carbon Dioxide Anion Gap BUN Creatinine Est GFR ( Amer) Est GFR (Non-Af Amer) BUN/Creatinine Ratio Glucose POC Glucose (mg/dL) Calcium Total Bilirubin AST ALT Alkaline Phosphatase Ammonia 141 H Total Protein Albumin Globulin Albumin/Globulin Ratio Intake and Output Last 24 Hours 08/15/19 08/16/19 08/17/19 08/18/19 06:59 06:59 06:59 06:59 Intake Total 2365 972 6911 0 Output Total 0 0 100 0 Balance 0619 453 4405 0 Weight 174 lb 2.643 oz Intake: Medicated IV 50 GEN - Magnesium 50 Oral 7745 676 6720 0 Output: Urine 0 0 Liquid Stool 100 0 Other: Estimated Void Large Large Medium Medium Date of Last Bowel 1 1 Movement # Bowel Movements 1 1 1 Estimated Stool Amount Large Large Large Large # Voids 1 O2: 2L NC Infusions: None Medications: Albuterol (Ventolin 2.5 Mg/3 Ml Neb.Rachel*) 1.25 mg INH Q4H PRN PRN Reason: SOB/WHEEZING Atorvastatin Calcium (Lipitor*) 10 mg PO DAILY [facility] Last Admin: 08/17/19 09:12 Dose: Not Given Bumetanide (Bumex Tab*) 2 mg PO DAILY [facility] Last Admin: 08/17/19 09:12 Dose: Not Given Carvedilol (Coreg Tab*) 12.5 mg PO BID [facility] Last Admin: 08/17/19 09:12 Dose: Not Given Clobazam (Onfi Tab(Nf)) 5 mg PO BID [facility] Cyanocobalamin (Vitamin B12 Tab*) 500 mcg PO DAILY [facility] Last Admin: 08/17/19 09:12 Dose: Not Given Dextrose (D50w Syringe 50 Ml*) 12.5 gm IV PUSH .FOR FS < 60 - SS PRN PRN Reason: FS < 60 Last Admin: 08/15/19 00:37 Dose: 12.5 gm Dextrose (D50w Syringe 50 Ml*) 25 gm IV PUSH ONCE PRN PRN Reason: FS < 60 Last Admin: 08/16/19 00:44 Dose: 25 gm Ferrous Gluconate (Fergon Tab*) 324 mg PO BID [facility] Last Admin: 08/17/19 09:12 Dose: Not Given Insulin Human Lispro (Humalog*) 0 units SUBCUT BEDTIME [facility]; Protocol Last Admin: 08/16/19 23:45 Dose: Not Given Insulin Human NPH (Insulin Nph(*)) 25 units SUBCUT QPM [facility] Last Admin: 08/16/19 16:59 Dose: 25 units Insulin Human Regular (Insulin Regular(*)) 0 units SUBCUT Q6H [facility]; Protocol Last Admin: 08/17/19 03:16 Dose: Not Given Lactulose (Lactulose*) 30 ml PO Q6H [facility] Last Admin: 08/17/19 03:16 Dose: 30 ml Levetiracetam (Keppra Tab*) 750 mg PO BID [facility] Levothyroxine Sodium (Synthroid Tab*) 25 mcg PO DAILY@0600 [facility] Last Admin: 08/17/19 05:51 Dose: 25 mcg Magnesium Chloride (Slow Mag Ec Tab*) 64 mg PO DAILY [facility] Last Admin: 08/17/19 09:13 Dose: Not Given Miscellaneous (Ativan Pyxis Bell) 1 ea N/A .ATIVAN IV BELL PRN PRN Reason: PYXIS BELL Multivitamins/Minerals (Theragran/Minerals Tab*) 1 tab PO DAILY [facility] Last Admin: 08/17/19 09:13 Dose: Not Given Nitroglycerin (Nitroglycerin Tab 0.4 Mg*) 0.4 mg SL Q5M PRN PRN Reason: ANGINA Nystatin (Nystatin Top Powder*) 1 applic TOPICAL BID PRN PRN Reason: ITCHING Pantoprazole Sodium (Protonix Tab*) 40 mg PO BID [facility] Last Admin: 08/17/19 09:13 Dose: Not Given Rifaximin (Xifaxan*) 550 mg PO BID [facility] Last Admin: 08/17/19 09:13 Dose: Not Given Terazosin HCl (Hytrin Cap*) 10 mg PO BEDTIME [facility] Last Admin: 08/16/19 23:45 Dose: Not Given Tiotropium [place] (Spiriva Respimat 2.5 Mcg) 2 puff INH DAILY [facility] Last Admin: 08/17/19 09:13 Dose: Not Given Triamcinolone Acetonide (Triamcinolone 0.025% Oint *) 1 applic TOPICAL DAILY PRN PRN Reason: RASH Physical Exam: Constitutional: lethargic, opens eyes to pain. No distress or diaphoresis Head: normocephalic, atraumatic Eyes: no pallor, no icterus, pupils unequal and nonreactive, right pupil is 2mm and round, left is slit like. Has had cataract surgery ENT: dry mucous membranes Neck: soft, supple CVS: normal rate, regular, no murmur Chest/Resp: bilateral air entry, diminished throughout .No wheeze, no rhonchi, no acc muscle use Abdomen/GI: obese, soft, nontender, nondistended, BS+ Ext/Msk: warm, pulses+, no edema Skin: intact, warm Neuro: lethargic, opens eyes to pain, expressive aphasia, oriented x1, Does not follow commands. Moves all extremities spontaneously and withdraws from pain. Pupils unequal d/t cararact surgery Labs: Laboratory Results - last 24 hr 08/16/19 08/16/19 08/16/19 11:06 16:21 16:23 WBC RBC Hgb Hct MCV MCH MCHC RDW Plt Count MPV Neut % (Auto) Lymph % (Auto) [place] % (Auto) Eos % (Auto) Baso % (Auto) Absolute Neuts (auto) Absolute Lymphs (auto) Absolute Monos (auto) Absolute Eos (auto) Absolute Basos (auto) Absolute Nucleated RBC Nucleated RBC % Patient Temperature ABG pH ABG pCO2 ABG pO2 ABG HCO3 ABG O2 Saturation ABG Base Excess Respiration Rate O2 Delivery Device Ventilator Type Vent Mode FiO2 Inspiratory Time PEEP Pressure Support Pressure Control EPAP IPAP BiPAP Sodium Potassium Chloride Carbon Dioxide Anion Gap BUN Creatinine Est GFR ( Amer) Est GFR (Non-Af Amer) BUN/Creatinine Ratio Glucose POC Glucose (mg/dL) 387 H 315 H Calcium Total Bilirubin AST ALT Alkaline Phosphatase Ammonia 195 H Total Protein Albumin Globulin Albumin/Globulin Ratio 08/16/19 08/16/19 08/17/19 19:34 23:17 01:12 WBC RBC Hgb Hct MCV MCH MCHC RDW Plt Count MPV Neut % (Auto) Lymph % (Auto) [place] % (Auto) Eos % (Auto) Baso % (Auto) Absolute Neuts (auto) Absolute Lymphs (auto) Absolute Monos (auto) Absolute Eos (auto) Absolute Basos (auto) Absolute Nucleated RBC Nucleated RBC % Patient Temperature ABG pH ABG pCO2 ABG pO2 ABG HCO3 ABG O2 Saturation ABG Base Excess Respiration Rate O2 Delivery Device Ventilator Type Vent Mode FiO2 Inspiratory Time PEEP Pressure Support Pressure Control EPAP IPAP BiPAP Sodium Potassium Chloride Carbon Dioxide Anion Gap BUN Creatinine Est GFR ( Amer) Est GFR (Non-Af Amer) BUN/Creatinine Ratio Glucose POC Glucose (mg/dL) 228 H 110 H 79 Calcium Total Bilirubin AST ALT Alkaline Phosphatase Ammonia Total Protein Albumin Globulin Albumin/Globulin Ratio 08/17/19 08/17/19 08/17/19 04:14 04:30 04:30 WBC 4.7 RBC 3.07 L Hgb 7.6 L Hct 24 L MCV 77 L MCH 25 L MCHC 32 RDW 20 H Plt Count 122 L MPV 11.7 H Neut % (Auto) 62.5 Lymph % (Auto) 23.3 [place] % (Auto) 9.1 Eos % (Auto) 3.6 Baso % (Auto) 1.5 Absolute Neuts (auto) 3.0 Absolute Lymphs (auto) 1.1 Absolute Monos (auto) 0.4 Absolute Eos (auto) 0.2 Absolute Basos (auto) 0.1 Absolute Nucleated RBC 0.0 Nucleated RBC % 0.3 Patient Temperature Not Reportable ABG pH 7.45 ABG pCO2 45 ABG pO2 60 L ABG HCO3 29.7 ABG O2 Saturation 92.8 L ABG Base Excess 6.4 H Respiration Rate Not Reportable O2 Delivery Device Not Reportable Ventilator Type Not Reportable Vent Mode Not Reportable FiO2 Not Reportable Inspiratory Time Not Reportable PEEP Not Reportable Pressure Support Not Reportable Pressure Control Not Reportable EPAP Not Reportable IPAP Not Reportable BiPAP Not Reportable Sodium 140 Potassium 4.3 Chloride 103 Carbon Dioxide 29 Anion Gap 8 BUN 81 H Creatinine 1.84 H Est GFR ( Amer) 32.2 Est GFR (Non-Af Amer) 26.6 BUN/Creatinine Ratio 44.0 H Glucose 95 POC Glucose (mg/dL) Calcium 8.4 L Total Bilirubin 0.60 AST 39 ALT 29 Alkaline Phosphatase 227 H Ammonia Total Protein 6.8 Albumin 3.0 L Globulin 3.8 Albumin/Globulin Ratio 0.8 L 08/17/19 04:30 WBC RBC Hgb Hct MCV MCH MCHC RDW Plt Count MPV Neut % (Auto) Lymph % (Auto) [place] % (Auto) Eos % (Auto) Baso % (Auto) Absolute Neuts (auto) Absolute Lymphs (auto) Absolute Monos (auto) Absolute Eos (auto) Absolute Basos (auto) Absolute Nucleated RBC Nucleated RBC % Patient Temperature ABG pH ABG pCO2 ABG pO2 ABG HCO3 ABG O2 Saturation ABG Base Excess Respiration Rate O2 Delivery Device Ventilator Type Vent Mode FiO2 Inspiratory Time PEEP Pressure Support Pressure Control EPAP IPAP BiPAP Sodium Potassium Chloride Carbon Dioxide Anion Gap BUN Creatinine Est GFR ( Amer) Est GFR (Non-Af Amer) BUN/Creatinine Ratio Glucose POC Glucose (mg/dL) Calcium Total Bilirubin AST ALT Alkaline Phosphatase Ammonia 141 H Total Protein Albumin Globulin Albumin/Globulin Ratio Imaging: Chest xray 08/17: Cardiomegaly Gallbladder ultrasound 08/16: Enlarged, cirrhotic liver, mild wall thickening of gallbladder EEG 08/07: Negative for seizure activity CTH 08/07: Negative Assessment: 78F with extensive medical history, most noteworthy, HUERTA with varices and duodenal AVNs, CKD, uncontrolled DM, and diastolic heart failure, initially presents on 08/07/19 with what her describes as "whole body spasms" and loss of consciousness. Apparently she has been having "left hand spasms" intermittently for years although seems more frequent over the past 2 months. On 08/16 in the evening, patient had an episode of unresponsiveness with rhythmic jerking movements of BUE. She continued to have lethargy and was transferred to ICU for low GCS and monitoring. There was a concern for worsening hepatic encephalopathy vs post-ictal state. - Seizures - Hepatic encephalopathy - HUERTA - HTN - DM - CKD Plan: Neuro- - Seizures: new onset. Patient had what appears to be a generalized seizure last night. She was given 1G Keppra additional to 500mg BID. - EEG this AM concerning for seizure activity, which responded to 2mg Ativan. - Will increase Keppra to 750mg BID - Add Onfil 5mg BID - Continue EEG for now. - Paraneoplastic workup -Delirium prec CVS- - HTN: chronic. Appears well controlled on current regimen. - Maintain MAP>65 as long as SBP<160 Resp- -COPD: chronic. Continue home medications -Wean Fio2 to keep sat>92% -Aspiration prec, Pulmonary Toilet ID- - No active issues - Goal temp<101 GI- -Nutrition: NPO while so lethargic. Will start tube feedings -GI prophylaxis: protonix - HUERTA with cirrhosis/varies: chronic. Continue home medications - Hepatic encephalopathy- worsened. Continue lactulose 30ml q6hr until improvement in mental status. Renal- -CKD: chronic. Kidney function appears to be at her baseline -strict I/O Heme- - No active issues - SCDs for DVT prophylaxis Endo- - DM: chronic. BGs are labile. Continue to follow custom sliding scale - Continue home NPH -Maintain BG<200 Musculsk- pressure ulcer prophylaxis. Bedrest. Wounds- none Nutrition- Will start tube feedings DVT prophylaxis: SCDs GI prophylaxis: PPI Disposition: Patient requires Critical Care/ICU for hepatic encephalopathy with worsening GCS, subclinical seizures Patient clinical status: stable Code Status: DNR only Total Critical Care time is 30minutes
[2019-08-17] MEDS: Clobazam TAB (NF) 10 MG TAB PO SCH ×3 (10:49→20:21)
--- NOTE | 2019-08-17 12:42 | PN ---
AMENDED REPORT NOW INCLUDES DATE OF SERVICE PROGRESS NOTE: DATE OF SERVICE: 08/17/19 PATIENT OF: Dr. Samayoa, Dr. Lozano, Dr. Vu. HISTORY: I was called by Dr. Vu last night because this woman had an additional generalized seizure. Her seizure history probably begins within the past month or two when she was having intermittent but not rhythmic left hand cramping. She had an EEG, which did not show seizure activity and was not started on medications at that point. On 0 08/07/19, she had what sounds like a generalized tonic-clonic seizure and was admitted to the hospital where she was evaluated and had an EEG that did not show any epileptiform potentials; but, given the clinical description of the event in addition to the other, it was felt that she had been having . She was started on Keppra 500 mg twice a day. Her notes that since the seizure on 08/07/19, she had some weakness in her left arm and hand. She had another major motor seizure last night and we gave her a load of Keppra. This morning, she was able to say her name, but appeared to be still confused and she had become more confused overnight. She had an EEG done which showed frequent discharges with somewhat of a triphasic appearance 1 to 2 Hz throughout much of this initial portion of the tracing until Ativan was given and then background consisted of moderate amplitude predominantly the theta and some alpha activities. The sharply contoured discharges also resolved after the Ativan was given, she was somnolent following that. MEDICATIONS: Her current medications include: 1. Lipitor 10 mg daily. 2. Ventolin 1.25 p.r.n. 3. Bumex 2 mg daily. 4. Coreg 12.5 b.i.d. 5. Onfi, we have just started 5 mg twice a day. 6. B12 500 mcg daily. 7. Ferrous gluconate 325 b.i.d. 8. Insulin 25 mg q.p.m. 9. Lactulose 30 mg q.6 hours. 10. Keppra increased to 750 twice a day. 11. Levothyroxine 25 mcg daily. 12. Magnesium chloride 64 mg daily. 13. P.r.n. Ativan. 14. Nitroglycerin 0.4 p.r.n. 15. Protonix 40 mg b.i.d. 16. Rifaximin 550 b.i.d. 17. Hytrin 10 mg at bedtime. 18. Spiriva 2 puffs daily. PHYSICAL EXAMINATION: On exam, temperature 98.1, pulse 66, respiratory rate 15 , blood pressure 139/52. She is somnolent at this point. Chest: Clear. Cardiovascular: Regular rate and rhythm. Abdomen: Soft. I will be trying to evaluate her again and do more full exam in few hours. LABORATORY DATA: Labs include most recent white count of 4.7, hematocrit 24, platelet count 122. INR 1.16. Most recent blood gas done today 7.45, pCO2 45, pO2 60. Chemistries today include normal electrolytes. BUN 81, creatinine 1.8 , calcium 8.4. Normal AST, ALT. Alk phos 227. Ammonia 141. UA had 2+ leuk esterase with absent urine bacteria. Her head CT scan showed no acute intracranial abnormalities with some mild chronic white matter disease and this was done on 08/07/19. She had MRI scan done on 07/12/19, which showed atrophy, white matter changes but no other findings. Erika is a medically complicated patient with many systemic problems possibly interacting with her level of consciousness and seizures. These include her portal hypertension with cirrhosis and elevated ammonia, her renal insufficiency/failure, her anemia, her hypoxemia, her white matter disease on CSF, her cardiomyopathy, and COPD. At this point, we given her additional Keppra. I am going to begin her on Onfi for more chronic benzodiazepine treatment which would not interact with her kidney or liver problems to a substantial degree. It is difficult to find an anticonvulsant, which would not have significant interaction with some of her medical problems. Keppra is excreted by the kidneys but I have increased the dose and the level is pending from the dose of 500 twice a day. She is being treated with lactulose for her liver failure and there is some triphasic component of her discharges but they responded well to Ativan. I think this may be more likely seizure related. I discussed with the this morning that since she was not clearly having seizure at the time EEG was done yet. She had near continuous discharge that responded to Ativan. We do not have continuous video EEG monitoring here for optimum monitoring to help guide therapy, being at a facility that has video EEG would be a consideration and possibly help guide therapy. We decided with the that if she does not improve with the current changes when we reassess her in a couple of hours that we would further discuss transferring her. I discussed with him at length that she has multiple medical problems and would be difficult to treat with outcome considering we are not aware if she goes and we have not decided whether we want to transfer at this point. I am sending off paraneoplastic syndrome because she has had essentially recent development of frequent seizures with an escalating course and perhaps change in mental status. Thank you for sharing her case. [id number]/[facility] #: [id number] WENDY
--- NOTE | 2019-08-17 14:32 | PN ---
PROGRESS NOTE: DATE: 08/17/19 ADDENDUM: I reevaluated her at shortly after noon today. She was awake and alert, opening her eyes when spoken to. She knew her name, the year. She said she was at the hospital and I asked what hospital, she said [facility]. She moved all extremities with power. Her EEG at that point still showed an admixture of alpha and theta range frequencies with rare sharp discharges that became more frequent over the past hour. I spoke to her roughly half an hour or so ago and we discussed this issue of transferring to a place that had long-term video EEG monitoring as a way of optimally managing her seizures. He did not want to transfer at this point since things were going better and I discussed with him that it is unclear and she could easily get worse. He is aware of this and wants to keep her here. I have spoken with Dr. Verma and since there are more discharges on EEG, we are giving her an additional 1 mg of Ativan and we will follow her clinically. Thank you for sharing her case. [id number]/[facility] #: [id number] WENDY
[2019-08-17] MEDS: Insulin NPH(*) 1 UNITS UNIT SUBCUT SCH (17:50)
--- NOTE | 2019-08-17 19:31 | EEG ---
ELECTROENCEPHALOGRAPHY: DATE OF STUDY: 08/17/19 - ROOM #438 TIME OF RECORDIN:15 today, lasting brief amount. MEDICATIONS: Unchanged. REPORT: With the patient awake, background cerebral activity consists of moderate amplitude 5 to 8 Hz rhythm. Occasional left sharply contoured waves are noted, sometimes appearing generalized. These are not constant throughout this brief portion of the tracing. [id number]/[facility] #: [id number] [facility]
--- NOTE | 2019-08-17 19:56 | EEG ---
ELECTROENCEPHALOGRAPHY: DATE OF STUDY: 08/17/19 - ROOM #438 PATIENT OF: Dr. Samayoa and Dr. Lozano. CLINICAL PROBLEM: This is a 78-year-old woman who is having a repeat EEG for subclinical seizures. MEDICATIONS: Include: 1. Humalog. 2. Lactulose. 3. Atorvastatin. 4. Bumex. 5. Keppra. 6. Terazosin. 7. Levothyroxine. 8. Vitamin B12. 9. Magnesium. 10. Theragran. 11. Protonix. 12. Nitro. 13. Lorazepam. REPORT: Background cerebral activity consists of admixed delta and theta range frequencies. There is some frequent left temporal sharp waves as some spread centrally and some spread to the right. They occur frequently, but not rhythmically or every second. She received 1 mg Ativan and following this, the discharges mostly go away and she has an admixture of moderate amplitude alpha and theta range frequencies. CLINICAL IMPRESSION: This EEG is abnormal. There is a presence of probable epileptiform potentials occurring relatively frequently until she gets Ativan and then there is improvement of her slow background as well as the discharges. [id number]/[facility] #: [id number] [facility]
[2019-08-17] MEDS: Terazosin CAP* 5 MG PO SCH (20:22)
[2019-08-17] MEDS ORDERED: oxyCODONE ORAL.SOLN* 5 MG/5 ML UDC ONE (21:00)
[2019-08-18] MEDS: Insulin REGULAR(*) 1 UNITS UNIT SUBCUT SCH ×5 (02:36→21:45)
[2019-08-18] MEDS ORDERED: oxyCODONE ORAL.SOLN* 5 MG/5 ML UDC PO ONE (02:40)
[2019-08-18 05:08] LABS: BUN/Creatinine Ratio 46.1 (8-20); EGFR Non-African American 27.3 (>60); Magnesium 2.4 mg/dL (1.9-2.7); Potassium 4.5 mmol/L (3.5-5.0)
[2019-08-18 05:09] LABS: Hematocrit 29 % (35-47); Hemoglobin 8.7 g/dL (12.0-16.0); Mean Corpuscular HGB Conc 31 g/dL (31-36); Mean Corpuscular Hemoglobin 24 pg (27-31); Mean Corpuscular Volume 79 fL (80-97); Red Blood Count 3.63 10^6 /uL (3.70-4.87); Red Cell Distribution Width 19 % (10-15); White Blood Count 5.1 10^3/uL (3.5-10.8)
[2019-08-18] MEDS ORDERED: oxyCODONE TAB* 5 MG TAB PO PRN (05:42)
[2019-08-18 05:58] LABS: Mean Platelet Volume 11.4 fL (7.4-10.4); Platelet Count 109 10^3/uL (150-450)
[2019-08-18] MEDS: oxyCODONE ORAL.SOLN* 5 MG/5 ML UDC PO PRN (06:01)
[2019-08-18] MEDS: Levothyroxine TAB* 25 MCG TAB PO SCH (06:01)
[2019-08-18] MEDS: Lidocaine 2% JELLY* 6 ML JELLY TOPICAL PRN ×2 (06:03→20:01)
[2019-08-18] MEDS: SPIRIVA Respimat* (tiotropium) 2.5 mcg/inh Inhaler INH SCH (08:32)
[2019-08-18] MEDS: Multivitamins/Minerals TAB PO SCH (08:41)
[2019-08-18] MEDS: Cyanocobalamin TAB* 500 MCG PO SCH (08:41)
[2019-08-18] MEDS: Magnesium Chloride EC TAB* 64 MG PO SCH (08:41)
[2019-08-18] MEDS: Ferrous Gluconate TAB* 324 MG TAB PO SCH (08:41)
[2019-08-18] MEDS: Atorvastatin* 10 MG TAB PO SCH (08:41)
[2019-08-18] MEDS: Pantoprazole TAB * 40 MG TAB PO SCH ×2 (08:41→21:43)
[2019-08-18] MEDS: RiFAXimin* 550 MG TAB PO SCH ×2 (08:41→21:43)
[2019-08-18] MEDS: Bumetanide TAB* 2 MG PO SCH (08:41)
[2019-08-18] MEDS: Clobazam TAB (NF) 10 MG TAB PO SCH ×2 (08:41→21:44)
[2019-08-18] MEDS: Carvedilol TAB* 25 MG PO SCH ×2 (08:42→21:44)
[2019-08-18] MEDS: levETIRAcetam TAB* 500 MG PO SCH ×2 (08:43→21:43)
--- NOTE | 2019-08-18 14:17 | PN ---
Date of Service: 08/18/19 Critical Care Services: Patient is alert and oriented today. NG tube removed and patient has started oral intake. No overt seizure activity today. Vital Signs: Temp Pulse Resp BP SpO2 FiO2 98.2 F 68 13 151/49 100 Physical Exam: Gen:Alert and appears comfortable. HEENT: No facial asymmetry Lungs: Clear Cardiac: Reg rhythm Abdomen: Not distended Extremities: No cyanosis or edema Neuro: No tremors or focal findings. Fluid Balance (Past 24 Hours): 08/17/19 08/18/19 06:59 06:59 Intake Total 1920 150 Output Total 100 435 Balance 1820 -285 Weight 174 lb 2.643 oz 178 lb 5.663 oz Intake: Medicated IV GEN - Magnesium Oral 1920 0 Tube Feeding Tube Feeding Flush Amount NG Tube Irrigate Amount 150 Output: Urine Crespo 35 Liquid Stool 100 400 Other: Estimated Void Medium Medium Date of Last Bowel 1 1 Movement # Bowel Movements 1 1 Estimated Stool Amount Large Large # Voids 4 Labs: 08/16/19 08/17/19 08/17/19 20:28 03:07 09:47 Glucose POC Glucose (mg/dL) 129 H 164 H Calcium Magnesium Ammonia Levetiracetam 41.4 08/17/19 08/17/19 08/18/19 14:39 19:20 04:40 POC Glucose (mg/dL) 252 H 289 H Calcium Magnesium Ammonia 101 H Levetiracetam 08/18/19 08/18/19 04:40 04:40 WBC 5.1 RBC 3.63 L Hgb 8.7 L Hct 29 L MCV 79 L MCH 24 L MCHC 31 RDW 19 H Plt Count 109 L MPV 11.4 H Sodium 140 Potassium 4.5 Chloride 104 Carbon Dioxide 28 Anion Gap 8 BUN 83 H Creatinine 1.80 H Est GFR ( Amer) 33.0 Est GFR (Non-Af Amer) 27.3 BUN/Creatinine Ratio 46.1 H Glucose 199 H POC Glucose (mg/dL) Calcium 9.0 Magnesium 2.4 Ammonia Levetiracetam Studies: None today Nutrition: Consistent Carb Diet Impression: Seizures apparently controlled on Keppra (750 mg BID) and clobazam (5 mg BID). Ammonia levels down, but there is no clear link between the ammonia and the seizures. Plan: 1. Cut back on lactulose dosing 2. Anticonvulsant management per neurology service. Critical Care Time: 35 minutes
[2019-08-18] MEDS ORDERED: Insulin REGULAR(*) 1 UNITS UNIT IV ONE (18:05)
[2019-08-18] MEDS: Insulin NPH(*) 1 UNITS UNIT SUBCUT SCH (18:14)
--- NOTE | 2019-08-18 20:03 | EEG ---
ELECTROENCEPHALOGRAPHY: DATE OF STUDY: 08/18/19 - ROOM #438 PATIENT OF: and Dr. Lozano. CLINICAL PROBLEM: This is a 78-year-old woman being evaluated for seizures causing both major motor seizures as well as some confusion and obtundation. MEDICATIONS: Include: 1. Insulin. 2. Lactulose. 3. Atorvastatin. 4. Bumex. 5. Keppra. 6. Onfi. 7. Terazosin. 8. Levothyroxine. 9. B12. 10. Ferrous gluconate. 11. Magnesium. 12. Theragran. 13. Protonix. 14. Nitro. 15. Lorazepam p.r.n. REPORT: With the patient awake, background cerebral activity consists of moderate amplitude posterior dominant 6 to 7 Hz rhythm with some admixed delta activity. There is some rare left dominant sharp activity. No subclinical seizures are noted. CLINICAL IMPRESSION: This EEG with the patient awake is significantly improved from yesterday's tracings, but still shows both generalized slowing and rare left-sided sharp activity. [id number]/[facility] #: [id number] [facility]
--- NOTE | 2019-08-18 20:21 | PN ---
NEUROLOGICAL FOLLOWUP: DATE OF SERVICE: 08/18/19 PATIENT OF: Dr. Lozano. HISTORY: This is a 78-year-old woman who has had recent onset of seizures and was comatose with subclinical seizures yesterday and since last evening when I last saw her and then during the course of the day, she has been much better, talking in full sentences, asking [place] steak to eat. She had improved throughout the course of yesterday and remains about the same overnight without any clear seizures or setback. She has been tired at times. MEDICATIONS: Include: 1. Lipitor 10 mg daily. 2. Ventolin p.r.n. 3. Bumex 2 mg daily. 4. Coreg 12.5 b.i.d. 5. Onfi 5 mg b.i.d. 6. B12. 7. Insulin 25 mg subcu at bed. 8. Lactulose 30 mg q.12 hours. 9. Keppra 750 b.i.d. 10. Synthroid 25 mcg daily. 11. Mag chloride 64 mg daily. 12. Nitroglycerin as needed. 13. Oxycodone as needed. 14. Protonix 40 mg b.i.d. 15. Xifaxan 550 b.i.d. 16. Terazosin 10 mg at bedtime. 17. Spiriva 2 puffs daily. PHYSICAL EXAMINATION: Pulse 67, respirations 17, blood pressure 151/49, temperature 98.4. She was alert and talkative and followed commands. Cranial nerves II through XII are nonfocal. She moved all extremities with power and had no pronator drift, may have been trace weakness in her left hand and this has been noted before. Chest: Clear. Cardiovascular: Regular rate and rhythm. Abdomen: Soft with positive bowel sounds. DIAGNOSTIC STUDIES/LAB DATA: Labs include a white count of 5.1 today, hematocrit of 29, platelets of 109. INR 1.16. Chemistry this morning showed normal BNP other than a BUN of 83, creatinine 1.8, glucose 229, ammonia 101. Her EEG today continued to show slowing, but did not show the frequent discharges that were seen yesterday. ASSESSMENT AND PLAN: I had a lengthy discussion with her, the and daughter that she is much better than yesterday and that her main problems were seizures. It is too soon to know whether there will be recurrences and we will keep her overnight in the ICU, but things have clearly improved since yesterday. I also discussed that she has an elevated ammonia that could be contributing to some of the confusion. I discussed that we do not have the etiology of the seizures and we may never know it might be due to her small vessel ischemic disease, small scars causing the seizures, but that there were some studies including paraneoplastic antibodies that are pending and that we have not done a spinal tap which the family and her are not interested at this point especially since she is doing better, but I discussed that if she deteriorated, we would consider getting a spinal tap and might be difficult depending on what her coags and platelets showed at that time. We also plan on getting an MRI scan early next week, but can do that sooner if she deteriorates, but assuming that she does well, she will be transferred out to the floor tomorrow. Thank you for sharing her case. [id number]/[facility] #: [id number] WENDY
[2019-08-18] MEDS ORDERED: Insulin REGULAR(*) 1 UNITS UNIT SUBCUT ONE (20:42)
[2019-08-18] MEDS: Terazosin CAP* 5 MG PO SCH (21:43)
[2019-08-19] MEDS: Levothyroxine TAB* 25 MCG TAB PO SCH (05:17)
[2019-08-19 05:46] LABS: ABS Basophils 0.1 10^3/ul (0-0.2); ABS Eosinophils 0.2 10^3/ul (0-0.6); ABS Monocytes 0.6 10^3/ul (0-0.8); ABS Neutrophils 4.8 10^3/ul (1.5-7.7); Eosinophil % 2.8 %; Hematocrit 25 % (35-47); Hemoglobin 7.8 g/dL (12.0-16.0); Lymphocyte % 14.9 %; Mean Corpuscular HGB Conc 31 g/dL (31-36); Mean Corpuscular Hemoglobin 24 pg (27-31); Mean Corpuscular Volume 77 fL (80-97); Red Blood Count 3.25 10^6 /uL (3.70-4.87); Red Cell Distribution Width 19 % (10-15); White Blood Count 6.6 10^3/uL (3.5-10.8)
[2019-08-19 05:54] LABS: BUN/Creatinine Ratio 48.1 (8-20); Calcium 7.8 mg/dL (8.6-10.3); EGFR African American 38.9 (>60); EGFR Non-African American 32.2 (>60); Potassium 3.9 mmol/L (3.5-5.0)
[2019-08-19 06:59] LABS: Mean Platelet Volume 11.4 fL (7.4-10.4); Platelet Count 111 10^3/uL (150-450)
--- NOTE | 2019-08-19 08:24 | PN ---
Date of Service: 08/19/19 Critical Care Services: Patient had uneventful evening - no overt seizure activity. Up in chair this AM for breakfast. Vital Signs: Temp Pulse Resp BP SpO2 FiO2 99.4 F 59 17 107/47 96 Physical Exam: Gen:Alert, oriented, comfortable HEENT: No facial asymmetry Lungs:Clear Cardiac: Reg rhythm. No murmurs Abdomen: Not distended Extremities: No cyanosis or edema Neuro:No tremors Fluid Balance (Past 24 Hours): 08/17/19 08/18/19 06:59 06:59 Intake Total 1920 150 Output Total 100 435 Balance 1820 -285 Weight 174 lb 2.643 oz 178 lb 5.663 oz Intake: Oral 1920 0 Tube Feeding Tube Feeding Flush Amount NG Tube Irrigate Amount 150 Output: Crespo 35 Liquid Stool 100 400 Other: Estimated Void Medium Medium Date of Last Bowel 1 1 Movement # Bowel Movements 1 1 Estimated Stool Amount Large Large # Voids 4 Labs: 08/16/19 08/18/19 08/18/19 20:28 00:26 08:25 POC Glucose (mg/dL) 236 H 179 H Glucose Meter Confirm Calcium Ammonia Levetiracetam 41.4 08/18/19 08/19/19 08/19/19 19:30 05:30 05:30 WBC 6.6 RBC 3.25 L Hgb 7.8 L Hct 25 L MCV 77 L MCH 24 L MCHC 31 RDW 19 H Plt Count 111 L MPV 11.4 H Neut % (Auto) 72.6 Lymph % (Auto) 14.9 [place] % (Auto) 8.9 Eos % (Auto) 2.8 Baso % (Auto) 0.8 Absolute Neuts (auto) 4.8 Absolute Lymphs (auto) 1.0 Absolute Monos (auto) 0.6 Absolute Eos (auto) 0.2 Absolute Basos (auto) 0.1 Absolute Nucleated RBC 0.0 Nucleated RBC % 0.0 Sodium 139 Potassium 3.9 Chloride 106 Carbon Dioxide 27 Anion Gap 6 BUN 75 H Creatinine 1.56 H Est GFR ( Amer) 38.9 Est GFR (Non-Af Amer) 32.2 BUN/Creatinine Ratio 48.1 H Glucose 127 H POC Glucose (mg/dL) Glucose Meter Confirm 390 H Calcium 7.8 L Ammonia Levetiracetam 08/19/19 06:22 WBC RBC Hgb Hct MCV MCH MCHC RDW Plt Count MPV Neut % (Auto) Lymph % (Auto) [place] % (Auto) Eos % (Auto) Baso % (Auto) Absolute Neuts (auto) Absolute Lymphs (auto) Absolute Monos (auto) Absolute Eos (auto) Absolute Basos (auto) Absolute Nucleated RBC Nucleated RBC % Sodium Potassium Chloride Carbon Dioxide Anion Gap BUN Creatinine Est GFR ( Amer) Est GFR (Non-Af Amer) BUN/Creatinine Ratio Glucose POC Glucose (mg/dL) Glucose Meter Confirm Calcium Ammonia 87 H Levetiracetam Studies: None today Nutrition: Consistent Carb Diet Impression: Clinically stable - Seizures controlled on Keppra and clobazam. Ammonia elevation appears to be a chronic problem, and is currently asymptomatic on BID lactulose. Plan: Continue anticonvulsant Rx with Keppra (750 mg q 12h) and clobazam (5 mg BID), and transfer out of ICU today. Critical Care Time: 30 minutes
[2019-08-19] MEDS: Clobazam TAB (NF) 10 MG TAB PO SCH ×2 (09:09→22:00)
[2019-08-19] MEDS: Pantoprazole TAB * 40 MG TAB PO SCH ×2 (09:09→21:31)
[2019-08-19] MEDS: Insulin REGULAR(*) 1 UNITS UNIT SUBCUT SCH ×4 (09:09→21:34)
[2019-08-19] MEDS: Cyanocobalamin TAB* 500 MCG PO SCH (09:09)
[2019-08-19] MEDS: Multivitamins/Minerals TAB PO SCH (09:09)
[2019-08-19] MEDS: Bumetanide TAB* 2 MG PO SCH (09:09)
[2019-08-19] MEDS: Magnesium Chloride EC TAB* 64 MG PO SCH (09:09)
[2019-08-19] MEDS: Atorvastatin* 10 MG TAB PO SCH (09:09)
[2019-08-19] MEDS: RiFAXimin* 550 MG TAB PO SCH ×2 (09:09→21:30)
[2019-08-19] MEDS: levETIRAcetam TAB* 500 MG PO SCH ×2 (09:10→21:28)
[2019-08-19] MEDS: Carvedilol TAB* 25 MG PO SCH ×2 (09:10→21:30)
[2019-08-19] MEDS: SPIRIVA Respimat* (tiotropium) 2.5 mcg/inh Inhaler INH SCH (10:16)
[2019-08-19] MEDS ORDERED: Dextrose 50% Syringe 50 ML* 25 GM/50 ML SYRINGE IV PUSH PRN (17:29)
[2019-08-19] MEDS ORDERED: Insulin LISPRO* 1 UNITS UNIT SUBCUT ONE (17:29)
[2019-08-19] MEDS: Insulin NPH(*) 1 UNITS UNIT SUBCUT SCH (18:13)
[2019-08-19] MEDS ORDERED: Insulin REGULAR(*) 1 UNITS UNIT SUBCUT ONE (20:39)
--- NOTE | 2019-08-19 20:50 | PN ---
NEUROLOGICAL FOLLOWUP: DATE OF SERVICE: 08/19/19 PATIENT OF: Dr. Lozano. HISTORY: This is a neurological followup on this 78-year-old woman with overt seizures plus confusional episodes. She has no complaints now, has normal speech comprehension. Family feels that she is back to normal. MEDICATIONS: Include: 1. Lipitor 10 mg daily. 2. Ventolin 1.25 mg p.r.n. inhaled. 3. Bumex 2 mg daily. 4. Coreg 12.5 b.i.d. 5. Onfi 5 mg b.i.d. 6. Her insulin as directed. 7. Lactulose 30 mL q.12 hours. 8. Keppra 750 b.i.d. 9. Synthroid 25 mcg daily. 10. Nitroglycerin p.r.n. 11. Rifaximin 550 b.i.d. 12. Hytrin 10 mg b.i.d. PHYSICAL EXAMINATION: Temperature 97.5, pulse 57, respirations 19, blood pressure 133/48. She was alert and oriented with normal speech comprehension. Cranial nerves II through XII intact. She moved all extremities with power. Chest: Clear. Cardiovascular: Regular rate and rhythm. Abdomen: Soft with positive bowel sounds. DIAGNOSTIC STUDIES/LAB DATA: Labs include a white count of 6.6, hematocrit 35, platelet count 111. Normal INR. Normal BMP today other than a BUN of 75, creatinine 1.56, ammonia was 87. ASSESSMENT AND PLAN: Erika seems back to normal. With her seizures being of unclear etiology, her perineoplastic antibodies are pending, I will sign out her case to the neurologist coming electronic test technician tomorrow, but she is doing well enough that I probably does not need to see unless there is clinical change and Dr. Mcdonald or I will see in the office in followup. She did note some pain in her feet. It is unlikely to be from the seizures itself and if so, be likely to improve, I defer to the hospitalist about this. At this point, it does not seem to be a chronic problem for her. Thank you for sharing her case. [id number]/[facility] #: [id number] WENDY
[2019-08-19] MEDS: oxyCODONE ORAL.SOLN* 5 MG/5 ML UDC PO PRN (21:27)
[2019-08-19] MEDS: Terazosin CAP* 5 MG PO SCH (21:30)
[2019-08-20] MEDS: Levothyroxine TAB* 25 MCG TAB PO SCH (05:08)
[2019-08-20 05:53] LABS: BUN/Creatinine Ratio 38.8 (8-20); Calcium 8.3 mg/dL (8.6-10.3); EGFR African American 24.6 (>60); EGFR Non-African American 20.4 (>60); Potassium 3.9 mmol/L (3.5-5.0)
[2019-08-20] MEDS: SPIRIVA Respimat* (tiotropium) 2.5 mcg/inh Inhaler INH SCH (07:12)
[2019-08-20] MEDS: Insulin REGULAR(*) 1 UNITS UNIT SUBCUT SCH ×4 (08:18→22:47)
[2019-08-20] MEDS: Atorvastatin* 10 MG TAB PO SCH (09:21)
[2019-08-20] MEDS: Carvedilol TAB* 25 MG PO SCH ×2 (09:22→22:49)
[2019-08-20] MEDS: Cyanocobalamin TAB* 500 MCG PO SCH (09:23)
[2019-08-20] MEDS: Clobazam TAB (NF) 10 MG TAB PO SCH ×2 (09:23→22:50)
[2019-08-20] MEDS: Insulin ISOPH/REG 70/30 (*) 1 UNITS UNIT SUBCUT SCH (09:24)
[2019-08-20] MEDS: Magnesium Chloride EC TAB* 64 MG PO SCH (09:26)
[2019-08-20] MEDS: levETIRAcetam TAB* 500 MG PO SCH ×2 (09:26→22:47)
[2019-08-20] MEDS: Multivitamins/Minerals TAB PO SCH (09:27)
[2019-08-20] MEDS: RiFAXimin* 550 MG TAB PO SCH ×2 (09:27→22:46)
[2019-08-20] MEDS: Pantoprazole TAB * 40 MG TAB PO SCH ×2 (09:30→22:49)
[2019-08-20] MEDS ORDERED: Insulin REGULAR(*) 1 UNITS UNIT SUBCUT SCH (11:30)
--- NOTE | 2019-08-20 13:58 | PN ---
Subjective Date of Service: 08/20/19 Interval History: Pt c/o diffuse aches and pains in shoulders, neck, b/l feet. Has not had a BM today yet Family History: Unchanged from Admission Social History: Unchanged from Admission Past Medical History: Unchanged from Admission Objective Active Medications: Albuterol (Ventolin 2.5 Mg/3 Ml Neb.Rachel*) 1.25 mg INH Q4H PRN PRN Reason: SOB/WHEEZING Atorvastatin Calcium (Lipitor*) 10 mg PO DAILY [facility] Last Admin: 08/20/19 09:21 Dose: 10 mg Carvedilol (Coreg Tab*) 12.5 mg PO BID [facility] Last Admin: 08/20/19 09:22 Dose: 12.5 mg Clobazam (Onfi Tab(Nf)) 5 mg PO BID [facility] Last Admin: 08/20/19 09:23 Dose: 5 mg Cyanocobalamin (Vitamin B12 Tab*) 500 mcg PO DAILY [facility] Last Admin: 08/20/19 09:23 Dose: 500 mcg Dextrose (D50w Syringe 50 Ml*) 12.5 gm IV PUSH .FOR FS < 60 - SS PRN PRN Reason: FS < 60 Last Admin: 08/15/19 00:37 Dose: 12.5 gm Dextrose (D50w Syringe 50 Ml*) 25 gm IV PUSH ONCE PRN PRN Reason: FS < 60 Last Admin: 08/16/19 00:44 Dose: 25 gm Dextrose (D50w Syringe 50 Ml*) 12.5 gm IV PUSH .FOR FS < 60 - SS PRN PRN Reason: FS < 60 Insulin Human Isoph/Insulin Regular (Humulin 70/30 (*)) 40 units SUBCUT DAILY [facility] Last Admin: 08/20/19 09:24 Dose: 40 units Insulin Human Isoph/Insulin Regular (Humulin 70/30 (*)) 20 units SUBCUT 1700 [facility] Insulin Human Regular (Insulin Regular(*)) 0 units SUBCUT ACHS [facility]; Protocol Last Admin: 08/20/19 12:09 Dose: 6 units Lactulose (Lactulose*) 30 ml PO TID [facility] Last Admin: 08/20/19 13:21 Dose: 30 ml Levetiracetam (Keppra Tab*) 750 mg PO BID [facility] Last Admin: 08/20/19 09:26 Dose: 750 mg Levothyroxine Sodium (Synthroid Tab*) 25 mcg PO DAILY@0600 [facility] Last Admin: 08/20/19 05:08 Dose: 25 mcg Lidocaine HCl (Lidocaine 2% Jelly*) 1 applic TOPICAL TID PRN PRN Reason: PAIN - MILD Last Admin: 08/18/19 20:01 Dose: 1 applic Magnesium Chloride (Slow Mag Ec Tab*) 64 mg PO DAILY [facility] Last Admin: 08/20/19 09:26 Dose: 64 mg Miscellaneous (Ativan Pyxis Posadas) 1 ea N/A .ATIVAN IV POSADAS PRN PRN Reason: PYXIS POSADAS Multivitamins/Minerals (Theragran/Minerals Tab*) 1 tab PO DAILY [facility] Last Admin: 08/20/19 09:27 Dose: 1 tab Nitroglycerin (Nitroglycerin Tab 0.4 Mg*) 0.4 mg SL Q5M PRN PRN Reason: ANGINA Oxycodone HCl (Oxycodone Oral.Soln*) 2.5 mg PO Q6H PRN PRN Reason: PAIN - SEVERE Last Admin: 08/19/19 21:27 Dose: 2.5 mg Pantoprazole Sodium (Protonix Tab*) 40 mg PO BID [facility] Last Admin: 08/20/19 09:30 Dose: 40 mg Rifaximin (Xifaxan*) 550 mg PO BID [facility] Last Admin: 08/20/19 09:27 Dose: 550 mg Terazosin HCl (Hytrin Cap*) 10 mg PO BEDTIME [facility] Last Admin: 08/19/19 21:30 Dose: 10 mg Tiotropium Artie (Spiriva Respimat 2.5 Mcg) 2 puff INH DAILY [facility] Last Admin: 08/20/19 07:12 Dose: 2 puff Triamcinolone Acetonide (Triamcinolone 0.025% Oint *) 1 applic TOPICAL DAILY PRN PRN Reason: RASH Vital Signs - 8 hr 08/20/19 08/20/19 08/20/19 07:13 07:34 08:00 Temperature 97.5 F Pulse Rate 58 54 Respiratory 14 18 18 Rate Blood Pressure 129/47 (mmHg) O2 Sat by Pulse 96 98 Oximetry 08/20/19 08/20/19 08/20/19 08:44 08:50 11:10 Temperature 97.4 F Pulse Rate 55 Respiratory 16 Rate Blood Pressure 99/39 99/37 113/46 (mmHg) O2 Sat by Pulse 100 Oximetry 08/20/19 11:35 Temperature 97.9 F Pulse Rate 56 Respiratory 18 Rate Blood Pressure 119/42 (mmHg) O2 Sat by Pulse 100 Oximetry Oxygen Devices in Use Now: None Appearance: 78 yo f in nAD, aAOx3 Eyes: No Scleral Icterus, PERRLA Ears/Nose/Mouth/Throat: NL Teeth, Lips, Gums, Mucous Membranes Moist Neck: NL Appearance and Movements; NL JVP, Trachea Midline Respiratory: Symmetrical Chest Expansion and Respiratory Effort, Clear to Auscultation Cardiovascular: NL Sounds; No Murmurs; No JVD, RRR Abdominal: - - soft, mild ascites noted, non -tense, NT, BS+ Lymphatic: No Cervical Adenopathy Extremities: No Clubbing, Cyanosis, - - trace b/l ankle edema Neurological: Alert and Oriented x 3, NL Muscle Strength and Tone Result Diagrams: 08/19/19 05:30 08/20/19 05:32 Additional Lab and Data: Laboratory Tests 08/07/19 01:41 Total Protein 7.7 Albumin 3.4 Microbiology and Other Data: Microbiology 08/07/19 02:20 Urine Culture - Preliminary Urine Klebsiella Pneumoniae Assess/Plan/Problems-Billing Assessment: Mrs Hansen is a 78yo F with PMH of type 2 DM, diabetice neuropathy and neprhopathy, 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 - Patient Problems (1) Seizure Comment: - Suspect her left hand "spasms" were focal seizures and she had a generalized tonic clonic seizure prior to this admission. 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 - Continue Levetiracetam 750 BID and clobazam (2) SOBEIDA (acute kidney injury) Comment: sobeida on ckd holding spironolactone and losartan for now Holding Bumex for low SBP today (3) Heart failure Comment: -EF 45-50%, grade 2 diastolic dysfunction -does not appear to be in exacerbation -was on home medications spironolactone, bumetanide, losartan, metoprolol - losartan and spironolactone held at admission -today holding Bumex due to increase in creatinine and low SBP (4) Physical deconditioning Comment: - Patient has both OT and PT needs - plan to d/c to [facility], possibly tomorrow if renal function stable (5) UTI (urinary tract infection) Comment: - Present on admission - Abnormal UA but asymptomatic - culture growing Klebsiella sensitive to Ceftriaxone -completed a course of ceftriaxone tx (6) Uncontrolled diabetes mellitus Comment: -appreciate Dr. Contreras's consult, switiching pt on insulin 70/30 as receommended - Hb A1c up to 12.5 from 7.9 in April 2019, likely secondary to non compliance - Uncontrolled 08/09- due to dietary non compliance - patient educated about diet importance (7) Anemia Comment: due to likely small bowel AVM which is long existing. Pt was transfused 21 U PRBC over the course of [id number], last transfusion in (8) Hepatic encephalopathy Comment: -completely lucid today despite ammonia of 129 -no BM today-will increase Lactulose to TID -cont Rifaximin (9) DVT prophylaxis Comment: -Pharmacological prophylaxis contraindicated in the setting of chronic GI bleed -SCDs Status and Disposition: Inpatient. Plan for d/c to [facility] ([facility]) when stable.
[2019-08-20] MEDS ORDERED: Insulin ISOPH/REG 70/30 (*) 1 UNITS UNIT SUBCUT SCH (17:00)
[2019-08-20] MEDS: Terazosin CAP* 5 MG PO SCH (22:48)
[2019-08-21] MEDS: oxyCODONE ORAL.SOLN* 5 MG/5 ML UDC PO PRN (02:25)
[2019-08-21] MEDS ORDERED: oxyCODONE TAB* 5 MG TAB PO ONE (03:42)
[2019-08-21] MEDS: Levothyroxine TAB* 25 MCG TAB PO SCH (05:19)
[2019-08-21 06:11] LABS: ABS Eosinophils 0.3 10^3/ul (0-0.6); ABS Lymphocytes 0.8 10^3/ul (1.0-4.8); ABS Monocytes 0.5 10^3/ul (0-0.8); Hematocrit 26 % (35-47); Hemoglobin 8.1 g/dL (12.0-16.0); Lymphocyte % 18.3 %; Mean Corpuscular HGB Conc 31 g/dL (31-36); Mean Corpuscular Hemoglobin 24 pg (27-31); Mean Corpuscular Volume 77 fL (80-97); Red Cell Distribution Width 19 % (10-15); White Blood Count 4.6 10^3/uL (3.5-10.8)
[2019-08-21 06:22] LABS: BUN/Creatinine Ratio 42.5 (8-20); Calcium 8.3 mg/dL (8.6-10.3); EGFR African American 28.1 (>60); EGFR Non-African American 23.2 (>60); Potassium 3.8 mmol/L (3.5-5.0)
[2019-08-21 07:19] LABS: Mean Platelet Volume 11.8 fL (7.4-10.4); Platelet Count 108 10^3/uL (150-450)
[2019-08-21] MEDS: Insulin REGULAR(*) 1 UNITS UNIT SUBCUT SCH ×2 (07:19→12:21)
[2019-08-21] MEDS: SPIRIVA Respimat* (tiotropium) 2.5 mcg/inh Inhaler INH SCH (07:51)
[2019-08-21] MEDS: Carvedilol TAB* 25 MG PO SCH (08:26)
[2019-08-21] MEDS: Atorvastatin* 10 MG TAB PO SCH (08:26)
[2019-08-21] MEDS: Cyanocobalamin TAB* 500 MCG PO SCH (08:26)
[2019-08-21] MEDS: Magnesium Chloride EC TAB* 64 MG PO SCH (08:26)
[2019-08-21] MEDS: Multivitamins/Minerals TAB PO SCH (08:26)
[2019-08-21] MEDS: RiFAXimin* 550 MG TAB PO SCH (08:26)
[2019-08-21] MEDS: levETIRAcetam TAB* 500 MG PO SCH (08:26)
[2019-08-21] MEDS: Pantoprazole TAB * 40 MG TAB PO SCH (08:26)
[2019-08-21] MEDS: Clobazam TAB (NF) 10 MG TAB PO SCH (08:27)
[2019-08-21] MEDS: Insulin ISOPH/REG 70/30 (*) 1 UNITS UNIT SUBCUT SCH (09:27)
[2019-08-21 13:34] VITALS: BP 134/55
--- NOTE | 2019-08-21 13:51 | DS ---
CC: Dr. Neena Moyer; Dr. Samayoa, Neurology; Dr. Mcdonald, Neurology; Dr. White , Psychiatry; Dr. Jairon Contreras, Endocrinology; Dr. King, Neurology * DISCHARGE SUMMARY: DATE OF ADMISSION: 08/08/19 DATE OF DISCHARGE: 08/21/19 PRIMARY CARE PROVIDER: Dr. Neena Moyer. DISCHARGE DIAGNOSES: 1. New diagnosis of primary epilepsy. 2. Hepatic encephalopathy. 3. Klebsiella pneumoniae urinary tract infection. SECONDARY DIAGNOSES: 1. Acute kidney injury on chronic renal failure. 2. Type 2 diabetes, diabetic neuropathy and nephropathy, on insulin. 3. Obesity. 4. Liver cirrhosis, likely secondary to nonalcoholic steatohepatitis with portal hypertensive gastropathy and esophageal varices. 5. Duodenal arteriovenous malformations with chronic gastrointestinal bleed that requires intermittent blood transfusions. The patient has had approximately 21 units transfused in the past 2 years. 6. Nonischemic cardiomyopathy with EF of 45% to 50%. 7. Diastolic congestive heart failure, chronic. 8. History of chronic obstructive pulmonary disease, on home oxygen at 2 L. 9. Hypertension. 10. Chronic kidney disease, stage 3, due to diabetes. 11. Iron-deficiency anemia. 12. Spinal stenosis. 13. Hyperlipidemia. 14. Hypothyroidism. 15. History of adrenal gland cyst. 16. Vertigo. PAST SURGICAL HISTORY: 1. Hysterectomy. 2. Hernia repair. 3. Carpal tunnel surgery. 4. Cataract surgery. MEDICATIONS AT DISCHARGE: Include: 1. Albuterol nebulizer on a p.r.n. basis. 2. Coreg 25 mg b.i.d. 3. Vitamin B12 100 mcg daily. 4. Ferrous gluconate 324 mg b.i.d. 5. Levothyroxine 25 mcg daily. 6. Magnesium chloride (Slow-Mag) 71.5 mg daily. 7. Multivitamin 1 tablet daily. 8. Nitroglycerin 0.4 mg sublingually for chest pain. 9. Nystatin topical powder, apply to affected skin folds b.i.d. 10. Omeprazole 20 mg b.i.d. 11. Oxycodone 2.5 to 5 mg every 6 hours p.r.n. 12. Zocor 20 mg daily. 13. Aldactone 25 mg q.p.m. 14. Hytrin 10 mg at bedtime. 15. Spiriva 1 inhalation daily. 16. Triamcinolone cream 0.1% topical daily p.r.n. to rash. 17. Bumex 2 mg every other day. 18. Clobazam 5 mg b.i.d. 19. Insulin 70/30, 20 units at 5 p.m. and 40 units before breakfast daily. 20. Lactulose 30 mL 3 times a day. 21. Keppra 750 mg b.i.d. 22. Potassium chloride 20 mEq daily. 23. Xifaxan 550 mg b.i.d. FOLLOWUP LABS: 1. The patient is recommended to have complete metabolic panel to be checked in approximately 5 days and follow up with her primary care provider with that. 2. The patient is recommended to have an ammonia level checked if she develops lethargy. Also please be aware that the patient's mentation is normal and at her baseline with ammonia up to 140s and she was not noted to be encephalopathic at those levels. She was encephalopathic when her ammonia was 284. DIAGNOSTIC STUDIES/LAB DATA: Laboratory data during the hospital stay included : On 08/21/19, sodium of 137, potassium 3.8, chloride 100, carbon dioxide 27, BUN 88, creatinine 2.07. Hemoglobin A1c was noted to be 12.5 on 08/08/19. The patient's ammonia level on the day of admission was 141. Liver function tests last obtained on 08/17/19 showed bilirubin of 0.6, AST of 39, ALT of 29, alkaline phosphatase of 227 which is chronic elevation for this patient. The patient's TSH was 16.5 documented on 08/07/19 and 9.7 documented on . The patient's prolactin level was 19.3 documented on 08/07/19. Microbiology tests showed urine culture positive for over 100,000 colonies of Klebsiella pneumoniae. The patient's last EEG reported on 08/18/19, clinical impression: "This EEG with the patient awake is significantly improved from yesterday's tracing, but still shows both generalized slowing and rare left-sided sharp activity." Portable chest x-ray obtained last on 08/17/19, impression: "Cardiomegaly. No definite pneumonia is identified." Gallbladder ultrasound obtained on 08/16/19, impression: "Enlarged cirrhotic liver. Mild gallbladder wall thickening without sonographic Ayala sign or pericholecystic fluid. The differential includes reactive edema secondary to primary hepatic inflammatory process. Hypoproteinemia or primary inflammatory process of the gallbladder is also in differential." Shoulder x-ray documented on 08/12/19, impression: "No fracture of the right shoulder is noted, although degenerative changes of the glenohumeral joint and AC joint noted." Brain CT on 08/07/19: "No acute intracranial abnormality. Mild chronic small vessel ischemic change." Brain MRI last obtained on 07/12/19, impression: "No restricted diffusion is noted. Chronic ischemic white matter change. Age appropriate atrophy." CONSULTATIONS DURING THE HOSPITAL STAY: Included Dr. Mcdonald, Dr. Samayoa from Neurology; Dr. Lozano, Intensive Care; Dr. Jacob and Morelia Huang, TILE SETTER, Wound Care; Dr. White, Psychiatry; Dr. Campo, Palliative Care; Dr. Contreras, Endocrinology. HOSPITALIZATION COURSE: Erika Hansen is a 78-year-old female with multiple chronic medical conditions as mentioned above, who has been having problems with high blood sugars in the past several weeks. She also has chronic kidney disease, stage 3. She initially was seen in the hospital on 07/12/19 and had neurologic evaluation for an episode of left hand numbness and contraction. At this point, her EEG was rather unremarkable and her MRI did not show any acute changes. She was discharged home with a suspicion that the symptoms may have been related to uncontrolled diabetes and peripheral neuropathy or carpal tunnel syndrome. She came back to the hospital on 08/08/19 after an episode of generalized seizure- appearing activity at home. She also had an episode of unresponsiveness afterwards. The patient was admitted to the hospital with a suspicion of seizure. She was seen by Dr. Mcdonald, Dr. King, and Dr. Samayoa from Neurology. Initially, she was placed on Keppra and seems to be doing alright, although her mental state was not all the way back to her baseline. She refused to be placed in rehabilitation, and at that point, Dr. White from Psychiatry saw the patient in consultation and deemed the patient not competent to make decisions in regards to her disposition post hospitalization. She was also seen by Dr. Campo during that time and she was noted to be a candidate for hospice if she was interested in it. During the next several days, her mentation was still impaired and then she was noted to have recurrent seizures on 08/17/19 and transferred to the ICU for further evaluation and treatment. At this point, her Keppra dose was increased and the patient was placed on Clobazam, an additional medication. She had multiple EEGs, and eventually she was noted not to be seizing anymore and she was transferred back to the medical floor for evaluation. Also, it has to be noted that during the patient's ICU stay, she was noted to have marked lethargy and encephalopathy and her ammonia level was noted to be over 280. It was thought that the patient has a history of nonalcoholic steatohepatitis and liver cirrhosis due to that. Due to her ongoing medical problems, at that point she developed hepatic encephalopathy. She was treated with lactulose and rifaximin with good results. Please note that after the patient's ICU stay, her ammonia level still oscillated in the low 100s level and she continued to have no problems with her mentation whatsoever. I suspect the patient's ammonia level in the 120s to 140s is her baseline. Nevertheless, for further stay in the patient's care home for rehab , it is recommended for the patient to check ammonia level when the patient is lethargic. The patient had developed acute kidney injury on top of her chronic kidney disease and her creatinine escalated between 1.4 to 2.3 during her hospital stay. Her Aldactone was held as well as her losartan. Also, we transiently held her Bumex and restarted it. At this point, the patient's Bumex is going to be restarted every other day and her Aldactone is going to be restarted for the nighttime dose only. Also, her low systolic blood pressures in the morning limited the use of further diuretics. She did have mild ascites on clinical evaluation by the time of discharge, but it was her chronic appearance and there was no tense ascites and no difference from once again how she appeared in the past. At discharge, the patient agreed to go to short-term rehabilitation at [facility]. It is recommended for the [facility] to obtain complete metabolic panel in approximately 5 days after discharge to follow up on the patient's chronic renal insufficiency. In addition to above mentioned, please note that the patient has urine positive for Klebsiella pneumoniae and she was treated with 5 days' treatment of intravenous ceftriaxone. The patient was seen by Dr. Contreras in consultation in management of the patient's diabetes. Dr. Contreras changed the patient's insulin management to 70/30, which is prescribed at discharge currently. DISCHARGE RECOMMENDATIONS: The patient is recommended at discharge: 1. To follow up with her primary care provider or provider at the care home within the next 3 to 7 days. 2[address] To call Dr. Contreras's office and schedule for a followup appointment in the next 2 weeks. [address] To [address] Dr. Mcdonald's office from Neurology to schedule a followup appointment in approximately 8 weeks. DIET AT DISCHARGE: Diabetic. DISPOSITION AT DISCHARGE: To short-term rehabilitation at [facility]. CONDITION AT DISCHARGE: Stable. PHYSICAL EXAMINATION: At the time of discharge, blood pressure is 117/46, heart rate of 57 and regular, respiratory rate 16, oxygen saturation 100% on room air, temperature of 97.8. General: The patient is a very pleasant 78-year -old female, who is in no acute distress. The patient is alert and oriented x3. HEENT: Head: Atraumatic, normocephalic. Eyes: Pupils are equal, reactive to light and accommodation. Oropharynx clear. Mucosa moist. Neck: Supple. No JVD. No bruits bilaterally. Cardiovascular: Regular rate and rhythm. No murmur. Respiratory: Clear to auscultation bilaterally. Abdomen: Mild ascites noted, not tense. Otherwise, the abdomen is slightly distended and tympanic. Soft, nontender. Bowel sounds are present in all 4 quadrants. Extremities: There is trace bilateral ankle edema, left more than right. There is no clubbing and no cyanosis. On neuro evaluation, speech is clear. Cranial nerves II through XII grossly intact. Motor strength is 5/5 bilaterally. On evaluation of the skin, the patient has small stage II decubitus noted on her sacrum. Please note that this is a very short summary of the patient's long and complicated hospitalization. Please refer to further medical details in the computerized chart for details. TIME SPENT: Approximately 50 minutes was spent on the patient's discharge. [id number]/CPS #: [id number]
== END 2019-08-21 14:00 | DRG 101 ==
LOC: ED 00:43 → MEDTELE 08:12 → OBSVTOIN 08-08 11:00 → ICU 08-17 02:30 → MEDTELE 08-19 08:14
PROVIDERS: ADMIT Internal Medicine; ATTEND Internal Medicine
DX: G40.309 Generalized idiopathic epilepsy and epileptic syndromes, not intractable, without status epilepticus (principal); K76.6 Portal hypertension; I42.9 Cardiomyopathy, unspecified; I13.0 Hypertensive heart and chronic kidney disease with heart failure and stage 1 through stage 4 chronic kidney disease, or unspecified chronic kidney disease; I85.00 Esophageal varices without bleeding; E87.2 Acidosis; K92.2 Gastrointestinal hemorrhage, unspecified; N39.0 Urinary tract infection, site not specified; N17.9 Acute kidney failure, unspecified; I50.32 Chronic diastolic (congestive) heart failure; R18.8 Other ascites; E72.20 Disorder of urea cycle metabolism, unspecified; K72.90 Hepatic failure, unspecified without coma; Z66 Do not resuscitate; E11.22 Type 2 diabetes mellitus with diabetic chronic kidney disease; K74.69 Other cirrhosis of liver; N18.3 Chronic kidney disease, stage 3 (moderate); E11.21 Type 2 diabetes mellitus with diabetic nephropathy; E11.42 Type 2 diabetes mellitus with diabetic polyneuropathy; E11.65 Type 2 diabetes mellitus with hyperglycemia; K75.81 Nonalcoholic steatohepatitis (NASH); E78.5 Hyperlipidemia, unspecified; E03.9 Hypothyroidism, unspecified; D50.9 Iron deficiency anemia, unspecified; K55.20 Angiodysplasia of colon without hemorrhage; L89.152 Pressure ulcer of sacral region, stage 2; L89.321 Pressure ulcer of left buttock, stage 1; J44.9 Chronic obstructive pulmonary disease, unspecified; B96.1 Klebsiella pneumoniae [K. pneumoniae] as the cause of diseases classified elsewhere; E87.5 Hyperkalemia; E66.9 Obesity, unspecified; K31.89 Other diseases of stomach and duodenum; M25.511 Pain in right shoulder; R42 Dizziness and giddiness; R32 Unspecified urinary incontinence; Z68.31 Body mass index [BMI] 31.0-31.9, adult; Z91.11 Patient's noncompliance with dietary regimen; Z99.81 Dependence on supplemental oxygen; Z79.84 Long term (current) use of oral hypoglycemic drugs; Z79.4 Long term (current) use of insulin; Z79.51 Long term (current) use of inhaled steroids; Z79.899 Other long term (current) drug therapy; Z88.8 Allergy status to other drugs, medicaments and biological substances; Z82.49 Family history of ischemic heart disease and other diseases of the circulatory system; Z83.3 Family history of diabetes mellitus; Z87.891 Personal history of nicotine dependence
CPT/HCPCS: 36415; 36600; 70450; 71045; 76705; 80048; 80053; 80177; 80307; 80320; 81003; 81015; 82140; 82550; 82803; 82947; 83036; 83519; 83520; 83605; 83735; 84146; 84443; 84484; 85025; 85027; 85610; 86140; 86255; 86256; 87077; 87086; 87186; 93005; 94640; 95813; 95816; 95819; 99285; A9270-GY; G0378; G0480; J0696; J1953; J2060; J3475; J3535

== ENCOUNTER 2019-12-16 10:07 | Inpatient (IN) ==
[2019-12-16] MEDS ORDERED: NS 0.9% 1000 ml BAG 1,000 ML IV ONE (10:22)
[2019-12-16 10:31] LABS: ABS Eosinophils 0.2 10^3/ul (0-0.6); ABS Lymphocytes 0.7 10^3/ul (1.0-4.8); ABS Monocytes 0.5 10^3/ul (0-0.8); Eosinophil % 4.9 %; Hematocrit 26 % (35-47); Hemoglobin 8.3 g/dL (12.0-16.0); Lymphocyte % 14.5 %; Mean Corpuscular HGB Conc 32 g/dL (31-36); Mean Corpuscular Hemoglobin 26 pg (27-31); Mean Corpuscular Volume 82 fL (80-97); Mean Platelet Volume 9.8 fL (7.4-10.4); Platelet Count 117 10^3/uL (150-450); Red Blood Count 3.17 10^6 /uL (3.70-4.87); Red Cell Distribution Width 17 % (10-15); White Blood Count 4.6 10^3/uL (3.5-10.8)
[2019-12-16 10:39] LABS: INR 1.16 (0.82-1.09)
[2019-12-16 10:48] LABS: ALT 25 U/L (7-52); AST 29 U/L (13-39); Albumin 3.2 g/dL (3.2-5.2); Albumin/Globulin Ratio 0.9 (1-3); Alkaline Phosphatase 231 U/L (34-104); Anion Gap 9 mmol/L (2-11); BUN/Creatinine Ratio 32.5 (8-20); Blood Urea Nitrogen 50 mg/dL (6-24); C Reactive Protein 4.59 mg/L (<8.01); CO2 Carbon Dioxide 29 mmol/L (22-32); Calcium 8.4 mg/dL (8.6-10.3); Chloride 100 mmol/L (101-111); Creatine Kinase 88 U/L (10-223); EGFR African American 39.4 (>60); EGFR Non-African American 32.6 (>60); Globulin 3.4 g/dL (2-4); Glucose 284 mg/dL (70-100); Magnesium 1.8 mg/dL (1.9-2.7); Potassium 3.7 mmol/L (3.5-5.0); Sodium 138 mmol/L (135-145); Total Protein 6.6 g/dL (6.4-8.9)
[2019-12-16 10:49] LABS: Troponin I 0.01 ng/mL (<0.03)
[2019-12-16 11:46] LABS: Acetaminophen < 15 mcg/mL; Alcohol, S < 10 mg/dL (<10)
[2019-12-16] MEDS ORDERED: Magnesium Sulfate 2 gm BAG 2 GM/50 ML BAG IVPB ONE (11:56)
[2019-12-16 12:02] LABS: TSH (Thyroid Stimulating Horm) 3.84 mcIU/mL (0.34-5.60)
[2019-12-16 12:04] LABS: Free T4 0.78 ng/dL (0.61-1.12)
[2019-12-16 14:24] LABS: Urine Appearance Cloudy; Urine Bilirubin Negative (Negative); Urine Blood 1+ (Negative); Urine Color Yellow; Urine Glucose 1+(50 mg/dL) (Negative); Urine Ketones Negative (Negative); Urine Nitrite Negative (Negative); Urine Protein Negative (Negative); Urine Specific Gravity 1.006 (1.010-1.030); Urine Urobilinogen Negative (Negative)
[2019-12-16 14:26] LABS: Urine Bacteria Absent (Absent); Urine Red Blood Cell 3+(>10/hpf) (Absent); Urine White Blood Cell 3+(>20/hpf) (Absent)
[2019-12-16] MEDS ORDERED: Albuterol 2.5mg/3 ml (0.083%) NEB.SOLN INH PRN (16:10)
[2019-12-16] MEDS: [UNRECOGNIZED DRUG - OTHER] SUBCUT SCH (16:20)
[2019-12-16] MEDS: REG SUBCUT SCH (16:20)
[2019-12-16] MEDS: levETIRAcetam 1000MG IVPREMIX 1,000 MG/100 ML BAG IVPB SCH (16:20)
[2019-12-16] MEDS: Lactulose 30 ml UDC PO SCH ×2 (16:30→20:30)
[2019-12-16] MEDS ORDERED: Dextrose 50% Syringe 50 ml 25 GM/50 ML SYRINGE IV PUSH PRN (17:33)
[2019-12-16] MEDS: Clobazam 10 mg TAB (NF) 10 MG TAB PO SCH (20:30)
[2019-12-16] MEDS: Insulin LISPRO 100 units/ml(*) SUBCUT SCH (20:36)
[2019-12-17] MEDS: levETIRAcetam 1000MG IVPREMIX 1,000 MG/100 ML BAG IVPB SCH ×2 (04:19→17:12)
[2019-12-17 06:39] LABS: Hematocrit 28 % (35-47); Hemoglobin 9.2 g/dL (12.0-16.0); Mean Corpuscular HGB Conc 33 g/dL (31-36); Mean Corpuscular Hemoglobin 27 pg (27-31); Mean Corpuscular Volume 82 fL (80-97); Platelet Count 102 10^3/uL (150-450); Red Blood Count 3.37 10^6 /uL (3.70-4.87); Red Cell Distribution Width 16 % (10-15); White Blood Count 4.3 10^3/uL (3.5-10.8)
[2019-12-17 06:51] LABS: BUN/Creatinine Ratio 34.4 (8-20); Calcium 8.8 mg/dL (8.6-10.3); EGFR African American 48.8 (>60); EGFR Non-African American 40.3 (>60); Potassium 3.8 mmol/L (3.5-5.0)
[2019-12-17] MEDS: Clobazam 10 mg TAB (NF) 10 MG TAB PO SCH ×2 (08:54→21:39)
[2019-12-17] MEDS: Potassium Chlor 20 meq TAB.ER PO SCH (08:54)
[2019-12-17] MEDS: [UNRECOGNIZED DRUG - OTHER] SUBCUT SCH ×2 (08:55→17:30)
[2019-12-17] MEDS: REG SUBCUT SCH ×2 (08:55→17:30)
[2019-12-17] MEDS: Insulin LISPRO 100 units/ml(*) SUBCUT SCH ×4 (08:56→21:19)
[2019-12-17] MEDS: Lactulose 30 ml UDC PO SCH ×3 (08:56→21:15)
[2019-12-17] MEDS ORDERED: SPIRIVA Respimat (tiotropium) 2.5 mcg/inh Inhaler INH SCH (09:00)
[2019-12-17] MEDS: CMCS:Simvastatin 20 mg TAB (NF) PO SCH (21:15)
[2019-12-18] MEDS: levETIRAcetam 1000MG IVPREMIX 1,000 MG/100 ML BAG IVPB SCH ×2 (04:00→16:35)
[2019-12-18] MEDS: SPIRIVA Respimat (tiotropium) 2.5 mcg/inh Inhaler INH SCH (08:03)
[2019-12-18] MEDS: Lactulose 30 ml UDC PO SCH ×3 (08:55→21:25)
[2019-12-18] MEDS: [UNRECOGNIZED DRUG - OTHER] SUBCUT SCH ×2 (08:55→17:47)
[2019-12-18] MEDS: REG SUBCUT SCH ×2 (08:55→17:47)
[2019-12-18] MEDS: Insulin LISPRO 100 units/ml(*) SUBCUT SCH ×4 (08:55→21:25)
[2019-12-18] MEDS: Potassium Chlor 20 meq TAB.ER PO SCH (08:56)
[2019-12-18] MEDS: Clobazam 10 mg TAB (NF) 10 MG TAB PO SCH ×2 (09:04→21:24)
[2019-12-18 09:29] LABS: ABS Eosinophils 0.2 10^3/ul (0-0.6); ABS Lymphocytes 0.7 10^3/ul (1.0-4.8); ABS Monocytes 0.5 10^3/ul (0-0.8); Eosinophil % 3.5 %; Hematocrit 28 % (35-47); Hemoglobin 8.9 g/dL (12.0-16.0); Lymphocyte % 15.6 %; Mean Corpuscular HGB Conc 32 g/dL (31-36); Mean Corpuscular Hemoglobin 27 pg (27-31); Mean Corpuscular Volume 83 fL (80-97); Mean Platelet Volume 9.3 fL (7.4-10.4); Platelet Count 105 10^3/uL (150-450); Red Blood Count 3.33 10^6 /uL (3.70-4.87); Red Cell Distribution Width 17 % (10-15); White Blood Count 4.3 10^3/uL (3.5-10.8)
[2019-12-18 09:43] LABS: BUN/Creatinine Ratio 30.6 (8-20); Calcium 8.8 mg/dL (8.6-10.3); EGFR African American 52.1 (>60); Potassium 3.9 mmol/L (3.5-5.0)
[2019-12-18] MEDS: CMCS:Simvastatin 20 mg TAB (NF) PO SCH (21:23)
[2019-12-19] MEDS: levETIRAcetam 1000MG IVPREMIX 1,000 MG/100 ML BAG IVPB SCH ×2 (04:09→17:56)
[2019-12-19 06:48] LABS: BUN/Creatinine Ratio 26.2 (8-20); Calcium 8.7 mg/dL (8.6-10.3); EGFR African American 43.6 (>60); EGFR Non-African American 36.1 (>60)
[2019-12-19] MEDS: SPIRIVA Respimat (tiotropium) 2.5 mcg/inh Inhaler INH SCH (07:40)
[2019-12-19] MEDS: Insulin LISPRO 100 units/ml(*) SUBCUT SCH ×4 (09:43→21:15)
[2019-12-19] MEDS: REG SUBCUT SCH ×2 (09:44→17:55)
[2019-12-19] MEDS: Potassium Chlor 20 meq TAB.ER PO SCH (09:44)
[2019-12-19] MEDS: Lactulose 30 ml UDC PO SCH ×3 (09:44→21:16)
[2019-12-19] MEDS: Clobazam 10 mg TAB (NF) 10 MG TAB PO SCH ×2 (09:44→21:12)
[2019-12-19] MEDS: [UNRECOGNIZED DRUG - OTHER] SUBCUT SCH ×2 (09:44→17:55)
[2019-12-19] MEDS: CMCS:Simvastatin 20 mg TAB (NF) PO SCH (21:12)
[2019-12-20] MEDS: levETIRAcetam 1000MG IVPREMIX 1,000 MG/100 ML BAG IVPB SCH ×2 (03:55→17:55)
[2019-12-20] MEDS: SPIRIVA Respimat (tiotropium) 2.5 mcg/inh Inhaler INH SCH (07:58)
[2019-12-20] MEDS: Potassium Chlor 20 meq TAB.ER PO SCH (09:20)
[2019-12-20] MEDS: [UNRECOGNIZED DRUG - OTHER] SUBCUT SCH ×2 (09:21→17:56)
[2019-12-20] MEDS: REG SUBCUT SCH ×2 (09:21→17:56)
[2019-12-20] MEDS: Lactulose 30 ml UDC PO SCH ×3 (09:21→21:11)
[2019-12-20] MEDS: Insulin LISPRO 100 units/ml(*) SUBCUT SCH ×4 (09:21→21:12)
[2019-12-20] MEDS: Clobazam 10 mg TAB (NF) 10 MG TAB PO SCH ×2 (09:22→21:08)
[2019-12-20] MEDS: CMCS:Simvastatin 20 mg TAB (NF) PO SCH (21:10)
[2019-12-21] MEDS: levETIRAcetam 1000MG IVPREMIX 1,000 MG/100 ML BAG IVPB SCH ×2 (03:58→16:59)
[2019-12-21 06:32] LABS: BUN/Creatinine Ratio 23.4 (8-20); Calcium 8.5 mg/dL (8.6-10.3); EGFR African American 43.6 (>60); EGFR Non-African American 36.1 (>60); Potassium 4.1 mmol/L (3.5-5.0)
[2019-12-21] MEDS: SPIRIVA Respimat (tiotropium) 2.5 mcg/inh Inhaler INH SCH ×2 (08:04→09:51)
[2019-12-21] MEDS: Insulin LISPRO 100 units/ml(*) SUBCUT SCH ×4 (08:37→21:04)
[2019-12-21] MEDS: Potassium Chlor 20 meq TAB.ER PO SCH (09:18)
[2019-12-21] MEDS: Clobazam 10 mg TAB (NF) 10 MG TAB PO SCH ×2 (09:18→21:04)
[2019-12-21] MEDS: REG SUBCUT SCH ×2 (09:18→17:13)
[2019-12-21] MEDS: Lactulose 30 ml UDC PO SCH ×3 (09:18→21:04)
[2019-12-21] MEDS: [UNRECOGNIZED DRUG - OTHER] SUBCUT SCH ×2 (09:18→17:13)
[2019-12-21] MEDS: CMCS:Simvastatin 20 mg TAB (NF) PO SCH (21:05)
[2019-12-22] MEDS: levETIRAcetam 1000MG IVPREMIX 1,000 MG/100 ML BAG IVPB SCH ×2 (04:57→15:18)
[2019-12-22] MEDS: SPIRIVA Respimat (tiotropium) 2.5 mcg/inh Inhaler INH SCH (07:33)
[2019-12-22] MEDS: Insulin LISPRO 100 units/ml(*) SUBCUT SCH ×4 (07:41→21:03)
[2019-12-22] MEDS: Potassium Chlor 20 meq TAB.ER PO SCH (10:47)
[2019-12-22] MEDS: Lactulose 30 ml UDC PO SCH ×3 (10:47→21:03)
[2019-12-22] MEDS: [UNRECOGNIZED DRUG - OTHER] SUBCUT SCH ×2 (10:47→18:07)
[2019-12-22] MEDS: REG SUBCUT SCH ×2 (10:47→18:07)
[2019-12-22] MEDS: Clobazam 10 mg TAB (NF) 10 MG TAB PO SCH ×2 (10:48→21:23)
[2019-12-22] MEDS: CMCS:Simvastatin 20 mg TAB (NF) PO SCH (21:04)
[2019-12-23] MEDS: levETIRAcetam 1000MG IVPREMIX 1,000 MG/100 ML BAG IVPB SCH ×2 (05:03→15:22)
[2019-12-23] MEDS: SPIRIVA Respimat (tiotropium) 2.5 mcg/inh Inhaler INH SCH (07:35)
[2019-12-23] MEDS: Insulin LISPRO 100 units/ml(*) SUBCUT SCH ×4 (10:33→21:46)
[2019-12-23] MEDS: Potassium Chlor 20 meq TAB.ER PO SCH (10:34)
[2019-12-23] MEDS: Lactulose 30 ml UDC PO SCH ×3 (10:34→21:46)
[2019-12-23] MEDS: [UNRECOGNIZED DRUG - OTHER] SUBCUT SCH ×2 (10:34→17:10)
[2019-12-23] MEDS: REG SUBCUT SCH ×2 (10:34→17:10)
[2019-12-23] MEDS: Clobazam 10 mg TAB (NF) 10 MG TAB PO SCH ×2 (11:17→21:46)
[2019-12-23] MEDS: CMCS:Simvastatin 20 mg TAB (NF) PO SCH (21:46)
[2019-12-24] MEDS: levETIRAcetam 1000MG IVPREMIX 1,000 MG/100 ML BAG IVPB SCH ×2 (04:41→16:30)
[2019-12-24] MEDS: SPIRIVA Respimat (tiotropium) 2.5 mcg/inh Inhaler INH SCH (07:33)
[2019-12-24] MEDS: Lactulose 30 ml UDC PO SCH ×3 (09:11→20:35)
[2019-12-24] MEDS: Insulin LISPRO 100 units/ml(*) SUBCUT SCH ×4 (09:11→20:35)
[2019-12-24] MEDS: REG SUBCUT SCH (09:12)
[2019-12-24] MEDS: [UNRECOGNIZED DRUG - OTHER] SUBCUT SCH (09:12)
[2019-12-24] MEDS: Clobazam 10 mg TAB (NF) 10 MG TAB PO SCH ×2 (09:12→20:35)
[2019-12-24] MEDS: Potassium Chlor 20 meq TAB.ER PO SCH (09:13)
[2019-12-24] MEDS ORDERED: REG SUBCUT SCH (17:00)
[2019-12-24] MEDS ORDERED: [UNRECOGNIZED DRUG - OTHER] SUBCUT SCH (17:00)
[2019-12-24] MEDS: CMCS:Simvastatin 20 mg TAB (NF) PO SCH (20:45)
[2019-12-25] MEDS: levETIRAcetam 1000MG IVPREMIX 1,000 MG/100 ML BAG IVPB SCH (03:27)
[2019-12-25] MEDS: Lactulose 30 ml UDC PO SCH ×2 (08:45→13:34)
[2019-12-25] MEDS: Potassium Chlor 20 meq TAB.ER PO SCH (08:45)
[2019-12-25] MEDS: Insulin LISPRO 100 units/ml(*) SUBCUT SCH ×2 (08:46→12:24)
[2019-12-25] MEDS: Clobazam 10 mg TAB (NF) 10 MG TAB PO SCH (08:46)
[2019-12-25] MEDS ORDERED: [UNRECOGNIZED DRUG - OTHER] SUBCUT SCH (09:00)
[2019-12-25] MEDS ORDERED: REG SUBCUT SCH (09:00)
[2019-12-25] MEDS: SPIRIVA Respimat (tiotropium) 2.5 mcg/inh Inhaler INH SCH (10:30)
[2019-12-25 12:00] VITALS: BP 123/50
== END 2019-12-25 15:00 | DRG 441 ==
LOC: ED 10:07 → MED 10:07
PROVIDERS: ADMIT Hospitalist; ATTEND Internal Medicine

== ENCOUNTER 2020-01-14 13:25 | Inpatient (IN) ==
[2020-01-14] MEDS ORDERED: NS 0.9% 1000 ml BAG 1,000 ML IV ONE (13:41)
[2020-01-14 14:30] LABS: INR 1.21 (0.82-1.09)
[2020-01-14] MEDS ORDERED: cefTRIAXone 1 gm/50 mL NS BAG 1 GM/50 ML BAG IV ONE (14:31)
[2020-01-14 14:34] LABS: ABS Eosinophils 0.2 10^3/ul (0-0.6); ABS Monocytes 0.5 10^3/ul (0-0.8); ABS Neutrophils 3.2 10^3/ul (1.5-7.7); Hematocrit 31 % (35-47); Hemoglobin 9.5 g/dL (12.0-16.0); Lymphocyte % 21.3 %; Mean Corpuscular HGB Conc 31 g/dL (31-36); Mean Corpuscular Hemoglobin 25 pg (27-31); Mean Corpuscular Volume 82 fL (80-97); Nucleated Red Blood Cells % 0.1; Red Blood Count 3.75 10^6 /uL (3.70-4.87); Red Cell Distribution Width 16 % (10-15); White Blood Count 4.9 10^3/uL (3.5-10.8)
[2020-01-14 14:35] LABS: ALT 19 U/L (7-52); Albumin 3.7 g/dL (3.2-5.2); Albumin/Globulin Ratio 0.8 (1-3); Alkaline Phosphatase 229 U/L (34-104); BUN/Creatinine Ratio 47.4 (8-20); Blood Urea Nitrogen 99 mg/dL (6-24); CO2 Carbon Dioxide 28 mmol/L (22-32); Calcium 9.5 mg/dL (8.6-10.3); EGFR African American 27.7 (>60); EGFR Non-African American 22.9 (>60); Globulin 4.6 g/dL (2-4); Glucose 101 mg/dL (70-100); Total Protein 8.3 g/dL (6.4-8.9)
[2020-01-14 14:36] LABS: Anion Gap 4 mmol/L (2-11); Chloride 115 mmol/L (101-111); Sodium 147 mmol/L (135-145); Troponin I 0.01 ng/mL (<0.03)
[2020-01-14 14:40] LABS: BNP 32 pg/mL (<=100)
[2020-01-14 14:44] LABS: Urine Appearance Turbid; Urine Bilirubin Negative (Negative); Urine Blood 1+ (Negative); Urine Color Amber; Urine Glucose Negative (Negative); Urine Ketones Negative (Negative); Urine Nitrite Negative (Negative); Urine Protein 2+(100 mg/dL) (Negative); Urine Specific Gravity 1.013 (1.010-1.030); Urine Urobilinogen Negative (Negative)
[2020-01-14 14:52] LABS: Urine Bacteria Absent (Absent); Urine Red Blood Cell 2+(6-10/hpf) (Absent); Urine White Blood Cell 3+(>20/hpf) (Absent)
[2020-01-14 14:57] LABS: TSH Ultra Thyroid Stim Horm 2.81 mcIU/mL (0.34-5.60)
[2020-01-14 15:33] LABS: Magnesium 2.8 mg/dL (1.9-2.7)
[2020-01-14 15:40] LABS: Platelet Count Platelets clumped. 10^3/uL (150-450)
[2020-01-14] MEDS ORDERED: Dextrose 50% Syringe 50 ml 25 GM/50 ML SYRINGE IV PUSH PRN (16:41)
[2020-01-14] MEDS ORDERED: Ondansetron 4 mg VIAL 2 MG/ML 2 ml VIAL IV PRN (17:15)
[2020-01-14] MEDS ORDERED: Albuterol 2.5mg/3 ml (0.083%) NEB.SOLN INH PRN (17:15)
[2020-01-14] MEDS ORDERED: NS 0.9% 1000 ml BAG 1,000 ML IV SCH (17:15)
[2020-01-14] MEDS ORDERED: Lactulose 30 ml UDC PO ONE (17:29)
[2020-01-14 17:39] LABS: C Reactive Protein 16.46 mg/L (<8.01)
[2020-01-14] MEDS ORDERED: Insulin NPH 100 units/ml SUBCUT SCH (18:00)
[2020-01-14 20:16] LABS: Albumin 3.4 g/dL (3.2-5.2); CO2 Carbon Dioxide 23 mmol/L (22-32); Calcium 9.2 mg/dL (8.6-10.3)
[2020-01-14 20:22] LABS: ALT 13 U/L (7-52); Albumin/Globulin Ratio 0.8 (1-3); Alkaline Phosphatase 221 U/L (34-104); BUN/Creatinine Ratio 49.5 (8-20); Blood Urea Nitrogen 92 mg/dL (6-24); EGFR African American 31.7 (>60); EGFR Non-African American 26.2 (>60); Globulin 4.3 g/dL (2-4); Glucose 86 mg/dL (70-100); Total Protein 7.7 g/dL (6.4-8.9)
[2020-01-14] MEDS: Lactulose 30 ml UDC PO SCH (21:19)
[2020-01-14 21:20] LABS: Chloride 119 mmol/L (101-111); Sodium 151 mmol/L (135-145)
[2020-01-14 21:21] LABS: Anion Gap 9 mmol/L (2-11)
[2020-01-14] MEDS: Heparin 5000 UNITS/ML 1 mL VIAL SUBCUT SCH (21:31)
[2020-01-14] MEDS ORDERED: D5W 1/2 NS 1000 ml BAG 1,000 ML IV SCH (22:00)
[2020-01-14 23:09] LABS: Urine Creatinine Concentration 104.09 mg/dL
[2020-01-15 06:57] LABS: ABS Eosinophils 0.2 10^3/ul (0-0.6); ABS Lymphocytes 0.7 10^3/ul (1.0-4.8); ABS Monocytes 0.6 10^3/ul (0-0.8); ABS Neutrophils 3.3 10^3/ul (1.5-7.7); Eosinophil % 4.1 %; Hematocrit 28 % (35-47); Hemoglobin 8.7 g/dL (12.0-16.0); Lymphocyte % 14.6 %; Mean Corpuscular HGB Conc 31 g/dL (31-36); Mean Corpuscular Hemoglobin 26 pg (27-31); Mean Corpuscular Volume 82 fL (80-97); Mean Platelet Volume 9.3 fL (7.4-10.4); Nucleated Red Blood Cells % 0.1; Platelet Count 111 10^3/uL (150-450); Red Cell Distribution Width 15 % (10-15); White Blood Count 4.8 10^3/uL (3.5-10.8)
[2020-01-15 07:39] LABS: Calcium 8.4 mg/dL (8.6-10.3); Potassium 4.2 mmol/L (3.5-5.0)
[2020-01-15 07:44] LABS: BUN/Creatinine Ratio 52.1 (8-20); EGFR African American 35.4 (>60); EGFR Non-African American 29.3 (>60)
[2020-01-15] MEDS: SPIRIVA Respimat (tiotropium) 2.5 mcg/inh Inhaler INH SCH (08:01)
[2020-01-15] MEDS: Heparin 5000 UNITS/ML 1 mL VIAL SUBCUT SCH ×3 (08:40→20:35)
[2020-01-15] MEDS: Lactulose 30 ml UDC PO SCH ×3 (08:47→20:35)
[2020-01-15] MEDS: Potassium Chlor 20 meq TAB.ER PO SCH (09:04)
[2020-01-15] MEDS: cefTRIAXone 1 gm/50 mL NS BAG 1 GM/50 ML BAG IVPB SCH (14:15)
[2020-01-15] MEDS ORDERED: cefTRIAXone 1 gm/50 mL NS BAG 1 GM/50 ML BAG IV SCH (15:00)
[2020-01-15 17:25] LABS: BUN/Creatinine Ratio 48.9 (8-20); Calcium 8.8 mg/dL (8.6-10.3); EGFR African American 34.2 (>60); EGFR Non-African American 28.3 (>60); Potassium 4.1 mmol/L (3.5-5.0)
[2020-01-15] MEDS ORDERED: Insulin NPH 100 units/ml SUBCUT SCH (18:00)
[2020-01-15] MEDS ORDERED: D5W 1/4 NS 1000 ml BAG 1,000 ML IV SCH (20:00)
[2020-01-16] MEDS: Heparin 5000 UNITS/ML 1 mL VIAL SUBCUT SCH ×3 (05:49→20:19)
[2020-01-16 07:35] LABS: Calcium 8.5 mg/dL (8.6-10.3); Potassium 4.5 mmol/L (3.5-5.0)
[2020-01-16 07:41] LABS: BUN/Creatinine Ratio 46.6 (8-20); EGFR African American 33.8 (>60); EGFR Non-African American 27.9 (>60)
[2020-01-16 08:21] LABS: Hematocrit 27 % (35-47); Hemoglobin 8.4 g/dL (12.0-16.0); Mean Corpuscular HGB Conc 31 g/dL (31-36); Mean Corpuscular Hemoglobin 25 pg (27-31); Mean Corpuscular Volume 81 fL (80-97); Mean Platelet Volume 10.5 fL (7.4-10.4); Platelet Count 107 10^3/uL (150-450); Red Blood Count 3.35 10^6 /uL (3.70-4.87); Red Cell Distribution Width 16 % (10-15)
[2020-01-16] MEDS: Potassium Chlor 20 meq TAB.ER PO SCH (12:29)
[2020-01-16] MEDS: Lactulose 30 ml UDC PO SCH ×3 (12:32→20:19)
[2020-01-16] MEDS: Lactulose 300 ML for PR 10 GM/15 ML BTL PR SCH ×2 (14:14→20:28)
[2020-01-16] MEDS: cefTRIAXone 1 gm/50 mL NS BAG 1 GM/50 ML BAG IVPB SCH (15:26)
[2020-01-16 15:36] LABS: Urine Appearance Cloudy; Urine Bilirubin Negative (Negative); Urine Blood Negative (Negative); Urine Color Yellow; Urine Glucose Negative (Negative); Urine Ketones Negative (Negative); Urine Nitrite Negative (Negative); Urine Protein Negative (Negative); Urine Specific Gravity 1.014 (1.010-1.030); Urine Urobilinogen Negative (Negative)
[2020-01-16 15:48] LABS: Urine Bacteria Absent (Absent); Urine Red Blood Cell Trace(0-2/hpf) (Absent); Urine Squamous Epithelial Cell Present (Absent); Urine White Blood Cell 3+(>20/hpf) (Absent)
[2020-01-16] MEDS: D5W 1/4 NS 1000 ml BAG 1,000 ML IV SCH (15:50)
[2020-01-16] MEDS: SPIRIVA Respimat (tiotropium) 2.5 mcg/inh Inhaler INH SCH (17:13)
[2020-01-16] MEDS ORDERED: Insulin GLARGINE 100 un/ml 10 ml VIAL SUBCUT ONE (21:00)
[2020-01-17] MEDS: D5W 1/4 NS 1000 ml BAG 1,000 ML IV SCH ×3 (00:25→18:18)
[2020-01-17 04:50] LABS: ABS Eosinophils 0.1 10^3/ul (0-0.6); ABS Lymphocytes 0.5 10^3/ul (1.0-4.8); ABS Monocytes 0.6 10^3/ul (0-0.8); ABS Neutrophils 5.2 10^3/ul (1.5-7.7); Eosinophil % 2.3 %; Hematocrit 24 % (35-47); Hemoglobin 7.5 g/dL (12.0-16.0); Lymphocyte % 8.2 %; Mean Corpuscular HGB Conc 31 g/dL (31-36); Mean Corpuscular Hemoglobin 25 pg (27-31); Mean Corpuscular Volume 81 fL (80-97); Red Blood Count 2.98 10^6 /uL (3.70-4.87); Red Cell Distribution Width 16 % (10-15); White Blood Count 6.5 10^3/uL (3.5-10.8)
[2020-01-17 05:00] LABS: BUN/Creatinine Ratio 46.3 (8-20); Calcium 7.9 mg/dL (8.6-10.3); EGFR African American 37.7 (>60); EGFR Non-African American 31.2 (>60); Potassium 3.6 mmol/L (3.5-5.0)
[2020-01-17] MEDS: Heparin 5000 UNITS/ML 1 mL VIAL SUBCUT SCH ×3 (05:35→20:19)
[2020-01-17 05:42] LABS: Mean Platelet Volume 9.7 fL (7.4-10.4); Platelet Count 94 10^3/uL (150-450)
[2020-01-17] MEDS: Lactulose 30 ml UDC PO SCH ×3 (08:07→20:19)
[2020-01-17] MEDS: Lactulose 300 ML for PR 10 GM/15 ML BTL PR SCH ×2 (08:16→20:34)
[2020-01-17] MEDS: Potassium Chlor 20 meq TAB.ER PO SCH ×2 (10:09→11:03)
[2020-01-17] MEDS: SPIRIVA Respimat (tiotropium) 2.5 mcg/inh Inhaler INH SCH ×2 (10:09→11:17)
[2020-01-17] MEDS: cefTRIAXone 1 gm/50 mL NS BAG 1 GM/50 ML BAG IVPB SCH (14:57)
[2020-01-18] MEDS: D5W 1/4 NS 1000 ml BAG 1,000 ML IV SCH ×2 (05:16→14:58)
[2020-01-18] MEDS: Heparin 5000 UNITS/ML 1 mL VIAL SUBCUT SCH ×3 (05:17→20:59)
[2020-01-18 05:48] LABS: ABS Eosinophils 0.2 10^3/ul (0-0.6); ABS Lymphocytes 0.7 10^3/ul (1.0-4.8); ABS Monocytes 0.7 10^3/ul (0-0.8); ABS Neutrophils 3.5 10^3/ul (1.5-7.7); Hematocrit 23 % (35-47); Hemoglobin 7.3 g/dL (12.0-16.0); Lymphocyte % 13.4 %; Mean Corpuscular HGB Conc 32 g/dL (31-36); Mean Corpuscular Hemoglobin 25 pg (27-31); Mean Corpuscular Volume 80 fL (80-97); Mean Platelet Volume 9.9 fL (7.4-10.4); Platelet Count 87 10^3/uL (150-450); Red Blood Count 2.88 10^6 /uL (3.70-4.87); Red Cell Distribution Width 15 % (10-15)
[2020-01-18 06:03] LABS: BUN/Creatinine Ratio 44.2 (8-20); Calcium 7.8 mg/dL (8.6-10.3); EGFR African American 48.4 (>60); Potassium 3.7 mmol/L (3.5-5.0)
[2020-01-18] MEDS: Potassium Chlor 20 meq TAB.ER PO SCH (10:10)
[2020-01-18] MEDS: Lactulose 30 ml UDC PO SCH ×3 (10:10→21:24)
[2020-01-18] MEDS: Lactulose 300 ML for PR 10 GM/15 ML BTL PR SCH ×2 (10:11→21:24)
[2020-01-18] MEDS: SPIRIVA Respimat (tiotropium) 2.5 mcg/inh Inhaler INH SCH (13:40)
[2020-01-18] MEDS: cefTRIAXone 1 gm/50 mL NS BAG 1 GM/50 ML BAG IVPB SCH (14:54)
[2020-01-19 05:12] LABS: BUN/Creatinine Ratio 38.5 (8-20); EGFR Non-African American 51.3 (>60)
[2020-01-19] MEDS: D5W 1/4 NS 1000 ml BAG 1,000 ML IV SCH (05:33)
[2020-01-19] MEDS: Heparin 5000 UNITS/ML 1 mL VIAL SUBCUT SCH ×3 (05:33→20:12)
[2020-01-19] MEDS: SPIRIVA Respimat (tiotropium) 2.5 mcg/inh Inhaler INH SCH (08:25)
[2020-01-19] MEDS: Lactulose 30 ml UDC PO SCH ×3 (09:52→20:11)
[2020-01-19] MEDS: Potassium Chlor 20 meq TAB.ER PO SCH (09:52)
[2020-01-19] MEDS: Lactulose 300 ML for PR 10 GM/15 ML BTL PR SCH ×2 (09:53→20:12)
[2020-01-20] MEDS: Heparin 5000 UNITS/ML 1 mL VIAL SUBCUT SCH ×3 (06:11→20:51)
[2020-01-20] MEDS: Lactulose 30 ml UDC PO SCH ×3 (07:40→20:51)
[2020-01-20] MEDS: Potassium Chlor 20 meq TAB.ER PO SCH (07:41)
[2020-01-20] MEDS: Lactulose 300 ML for PR 10 GM/15 ML BTL PR SCH (07:41)
[2020-01-20] MEDS: SPIRIVA Respimat (tiotropium) 2.5 mcg/inh Inhaler INH SCH (10:18)
[2020-01-20] MEDS ORDERED: Clobazam 10 mg TAB (NF) 10 MG TAB PO PRN (14:48)
[2020-01-21] MEDS: Heparin 5000 UNITS/ML 1 mL VIAL SUBCUT SCH (05:48)
[2020-01-21 06:29] LABS: BUN/Creatinine Ratio 20.9 (8-20); EGFR African American 72.3 (>60); EGFR Non-African American 59.8 (>60); Potassium 4.1 mmol/L (3.5-5.0)
[2020-01-21] MEDS: SPIRIVA Respimat (tiotropium) 2.5 mcg/inh Inhaler INH SCH (07:56)
[2020-01-21] MEDS: Potassium Chlor 20 meq TAB.ER PO SCH (09:56)
[2020-01-21] MEDS: Lactulose 30 ml UDC PO SCH (09:57)
[2020-01-21 13:38] VITALS: BP 132/68
== END 2020-01-21 14:00 | DRG 441 ==
LOC: ED 13:25 → MEDTELE 13:25
PROVIDERS: ADMIT Internal Medicine; ATTEND Internal Medicine

== ENCOUNTER 2020-05-31 13:41 | Inpatient (IN) ==
[2020-05-31 14:24] LABS: Hematocrit 28 % (35-47); Hemoglobin 8.6 g/dL (12.0-16.0); Mean Corpuscular HGB Conc 31 g/dL (31-36); Mean Corpuscular Hemoglobin 25 pg (27-31); Mean Corpuscular Volume 81 fL (80-97); Red Blood Count 3.47 10^6 /uL (3.70-4.87); Red Cell Distribution Width 22 % (10-15); White Blood Count 5.3 10^3/uL (3.5-10.8)
[2020-05-31 14:27] LABS: INR 1.11 (0.82-1.09)
[2020-05-31 14:33] LABS: Ammonia 95 mcmol/L (16-53)
[2020-05-31 14:34] LABS: ALT 27 U/L (7-52); AST 31 U/L (13-39); Acetaminophen < 15 mcg/mL; Albumin 3.2 g/dL (3.2-5.2); Albumin/Globulin Ratio 0.8 (1-3); Alkaline Phosphatase 246 U/L (34-104); Anion Gap 7 mmol/L (2-11); BUN/Creatinine Ratio 37.1 (8-20); Blood Urea Nitrogen 52 mg/dL (6-24); C Reactive Protein 14.73 mg/L (<8.01); CO2 Carbon Dioxide 30 mmol/L (22-32); Chloride 106 mmol/L (101-111); EGFR Non-African American 36.4 (>60); Globulin 4.2 g/dL (2-4); Glucose 207 mg/dL (70-100); Magnesium 2.2 mg/dL (1.9-2.7); Potassium 4.4 mmol/L (3.5-5.0); Sodium 143 mmol/L (135-145); Total Protein 7.4 g/dL (6.4-8.9)
[2020-05-31 14:35] LABS: Troponin I 0.01 ng/mL (<0.03)
[2020-05-31 14:38] LABS: BNP 119 pg/mL (<=100)
[2020-05-31 14:49] LABS: TSH Ultra Thyroid Stim Horm 5.69 mcIU/mL (0.34-5.60)
[2020-05-31 14:51] LABS: Free T4 0.83 ng/dL (0.61-1.12)
[2020-05-31 15:06] LABS: ABS Eosinophils 0.2 10^3/ul (0-0.6); ABS Lymphocytes 0.7 10^3/ul (1.0-4.8); ABS Monocytes 0.5 10^3/ul (0-0.8); Nucleated Red Blood Cells % 0.1; Platelet Count 131 10^3/uL (150-450)
[2020-05-31] MEDS ORDERED: Lidocaine 1% MPF 5 ML VIAL INJ ONE (15:51)
[2020-05-31] MEDS ORDERED: cefTRIAXone 2 GM ADDV.VIAL 2 GM in NS 0.9% 100 ml BAG 100 ML IV SCH (16:00)
[2020-05-31] MEDS ORDERED: Dextrose 50% Syringe 50 ml 25 GM/50 ML SYRINGE IV PUSH PRN (16:30)
[2020-05-31 16:34] LABS: Urine Appearance Cloudy; Urine Bilirubin Negative (Negative); Urine Blood Negative (Negative); Urine Color Yellow; Urine Glucose Negative (Negative); Urine Ketones Negative (Negative); Urine Nitrite Negative (Negative); Urine Protein Negative (Negative); Urine Specific Gravity 1.013 (1.010-1.030); Urine Urobilinogen Negative (Negative)
[2020-05-31 16:51] LABS: Urine Benzodiazepine Screen Presumptive Positive (None Detect); Urine Cannabinoids Screen None Detected (None Detect); Urine Opiates Screen None Detected (None Detect)
[2020-05-31 16:51] LABS: % Iron Saturation 38 % (15-55); Iron 126 ug/dL (50-212); Total Iron Binding Capacity 332 mcg/dL (250-450); Transferrin 237 mg/dL (203-362); Unsaturated Iron Binding < 317 ug/dL
[2020-05-31] MEDS ORDERED: cefTRIAXone 1 gm/50 mL NS BAG 1 GM/50 ML BAG IVPB SCH (17:00)
[2020-05-31 17:12] LABS: Ferritin 41.5 ng/mL (11-307)
[2020-05-31 17:16] LABS: Vitamin B12 > 1450 pg/mL (180-914)
[2020-05-31] MEDS: Insulin GLARGINE 100 un/ml 10 ml VIAL SUBCUT SCH (20:27)
[2020-06-01 06:30] LABS: Hematocrit 24 % (35-47); Hemoglobin 7.6 g/dL (12.0-16.0); Mean Corpuscular HGB Conc 31 g/dL (31-36); Mean Corpuscular Hemoglobin 25 pg (27-31); Mean Corpuscular Volume 80 fL (80-97); Red Blood Count 3.04 10^6 /uL (3.70-4.87); White Blood Count 6.7 10^3/uL (3.5-10.8)
[2020-06-01 06:40] LABS: Albumin 2.9 g/dL (3.2-5.2); Albumin/Globulin Ratio 0.7 (1-3); BUN/Creatinine Ratio 41.7 (8-20); Calcium 8.5 mg/dL (8.6-10.3); EGFR African American 52.6 (>60); EGFR Non-African American 43.4 (>60); Globulin 3.9 g/dL (2-4); Indirect Bilirubin 0.3 mg/dL (0.3-1.0); Potassium 4.2 mmol/L (3.5-5.0); Total Bilirubin 0.4 mg/dL (0.2-1.0); Total Protein 6.8 g/dL (6.4-8.9)
[2020-06-01 06:56] LABS: ABS Eosinophils 0.2 10^3/ul (0-0.6); ABS Lymphocytes 0.8 10^3/ul (1.0-4.8); ABS Monocytes 0.6 10^3/ul (0-0.8); ABS Neutrophils 5.1 10^3/ul (1.5-7.7); Eosinophil % 2.9 %; Large Platelets Present; Lymphocyte % 11.7 %; Platelet Count 115 10^3/uL (150-450); Red Cell Distribution Width 23 % (10-15)
[2020-06-01] MEDS: Lactated Ringers 1000 ml BAG 1,000 ML IV SCH ×2 (10:43→20:59)
[2020-06-01] MEDS: Clobazam 10 mg TAB (NF) 10 MG TAB PO SCH (12:28)
[2020-06-01] MEDS ORDERED: Lactulose 30 ml UDC ONE (20:47)
[2020-06-01] MEDS: Insulin GLARGINE 100 un/ml 10 ml VIAL SUBCUT SCH (20:55)
[2020-06-01 22:46] LABS: Calcium 8.3 mg/dL (8.6-10.3); EGFR African American 51.1 (>60); EGFR Non-African American 42.2 (>60); Potassium 3.7 mmol/L (3.5-5.0)
[2020-06-02 07:06] LABS: Hematocrit 23 % (35-47); Hemoglobin 7.3 g/dL (12.0-16.0); Mean Corpuscular HGB Conc 31 g/dL (31-36); Mean Corpuscular Hemoglobin 25 pg (27-31); Mean Corpuscular Volume 79 fL (80-97); Red Blood Count 2.96 10^6 /uL (3.70-4.87); Red Cell Distribution Width 23 % (10-15); White Blood Count 4.9 10^3/uL (3.5-10.8)
[2020-06-02] MEDS: SPIRIVA Respimat (tiotropium) 2.5 mcg/inh Inhaler INH SCH (08:45)
[2020-06-02 09:15] LABS: ABS Eosinophils 0.2 10^3/ul (0-0.6); ABS Lymphocytes 0.8 10^3/ul (1.0-4.8); ABS Monocytes 0.4 10^3/ul (0-0.8); ABS Neutrophils 3.5 10^3/ul (1.5-7.7); Eosinophil % 4.3 %; Lymphocyte % 16.5 %; Mean Platelet Volume 9.5 fL (7.4-10.4); Nucleated Red Blood Cells % 0.1; Platelet Count 118 10^3/uL (150-450)
[2020-06-02] MEDS: Clobazam 10 mg TAB (NF) 10 MG TAB PO SCH (10:18)
[2020-06-02] MEDS: Lactated Ringers 1000 ml BAG 1,000 ML IV SCH (16:43)
[2020-06-02] MEDS: Insulin GLARGINE 100 un/ml 10 ml VIAL SUBCUT SCH (21:45)
[2020-06-03] MEDS: Lactated Ringers 1000 ml BAG 1,000 ML IV SCH (04:03)
[2020-06-03] MEDS: SPIRIVA Respimat (tiotropium) 2.5 mcg/inh Inhaler INH SCH (07:16)
[2020-06-03 07:18] LABS: BUN/Creatinine Ratio 26.4 (8-20); Calcium 8.2 mg/dL (8.6-10.3); EGFR African American 72.3 (>60); EGFR Non-African American 59.8 (>60); Potassium 3.8 mmol/L (3.5-5.0)
[2020-06-03] MEDS: Clobazam 10 mg TAB (NF) 10 MG TAB PO SCH (10:02)
[2020-06-03 13:17] VITALS: BP 133/50
[2020-06-03 13:56] LABS: Hematocrit 25 % (35-47); Hemoglobin 7.6 g/dL (12.0-16.0); Mean Corpuscular HGB Conc 31 g/dL (31-36); Mean Corpuscular Hemoglobin 25 pg (27-31); Mean Corpuscular Volume 80 fL (80-97); Red Cell Distribution Width 22 % (10-15); White Blood Count 3.8 10^3/uL (3.5-10.8)
[2020-06-03 15:29] LABS: ABS Basophils 0.1 10^3/ul (0-0.2); ABS Eosinophils 0.1 10^3/ul (0-0.6); ABS Lymphocytes 0.8 10^3/ul (1.0-4.8); ABS Monocytes 0.4 10^3/ul (0-0.8); ABS Neutrophils 2.5 10^3/ul (1.5-7.7); Eosinophil % 3.8 %; Lymphocyte % 20.2 %; Nucleated Red Blood Cells % 0.4
== END 2020-06-03 14:00 | DRG 442 ==
LOC: ED 13:41 → MED 16:34
PROVIDERS: ADMIT Internal Medicine; ATTEND Internal Medicine